=== PATIENT | female | born 1960 | race Caucasian/White ===

== ENCOUNTER 2024-10-17 22:14 | Emergency (ER) | payer MEDICARE, BC, SELFPAY ==
[2024-10-17 22:40] VITALS: BP 151/71; PULSE 100; RESP 18; TEMP 36.4; O2SAT 96; BMI 29.6
--- NOTE | 2024-10-17 22:46 | PD.EDRME ---
Rapid Medical Screening Exam E Arrival date/time: 10/17/24 22:14 64F with history of DM, CAD, CVA, PAD, and cholecystectomy presents to ED with 1 day of R-sided ab/flank pain. Patient denies N/V, diarrhea, and hematuria/dysuria. Patient states she's had a kidney stone before and this feels different. Chief Complaint: Abdominal Pain Vital signs: Vital Signs Temperature 97.6 F 10/17/24 22:40 Pulse Rate 100 10/17/24 22:40 Respiratory Rate 18 10/17/24 22:40 Blood Pressure 151/71 H 10/17/24 22:40 Pulse Oximetry (%) 96 10/17/24 22:40 Oxygen Delivery Method Room Air 10/17/24 22:40
--- NOTE | 2024-10-17 22:49 | XR_ITS ---
Examination: CT abdomen and pelvis without contrast. Coronal 3-D reconstructions. Sagittal 2-D reconstructions. Date and time of exam:October 17, 2024 11:19 PM Comparison April 25, 2024 Indications: Right elbow pain beginning 2 hours ago including flank pain CTDI: vol (mGy): 2022 DLP: (mGycm): 417 Technique: Axial images of the abdomen have been obtained, 3 mm slice thickness Intravenous contrast material has not been administered. Low dose protocols were performed. One or more of the following dose reduction techniques were used; automated exposure control, adjustment of the mA and/or KV according to patient size, use of iterative reconstruction technique. Findings: No focal liver or splenic lesions Absent gallbladder No pancreatic or adrenal mass Bilateral renal calculi, the largest right kidney 4 mm No hydronephrosis or ureteral calculi Very heavy calcification distal abdominal aorta common iliac arteries, 80% stenosis left common iliac artery 50% stenosis right common iliac artery at its origin No periappendiceal inflammatory change Abundant stool in the rectosigmoid Urinary bladder intact Lumbar fusion and laminectomy Impression: Multiple bilateral renal calculi, the largest right kidney 4 mm, no hydronephrosis or ureteral calculi Very heavy calcification distal abdominal aorta with significant stenosis origins common iliac arteries, consider elective CTA abdominal aorta iliofemoral runoff post intravenous contrast follow-up as clinically warranted
[2024-10-17 23:05] LABS: Lactate (Lactic Acid) 2.8 mMol/L (0.4-2.0)
[2024-10-17 23:06] LABS: Basophils % (Auto) 0 % (0-2.5); Eosinophils # (Auto) 0.1 Thou/mm3 (0.0-0.5); Eosinophils % (Auto) 1 % (0-10); Hematocrit 42.5 % (36.0-46.0); Hemoglobin 14.2 g/dL (12.0-16.0); Immature Granulocytes % (Auto) 0 % (0-0); Immature Granulocytes Auto 0.01 Thou/mm3 (0.00-0.00); Lymphocytes # (Auto) 2.8 Thou/mm3 (1.0-4.8); Lymphocytes % (Auto) 44 % (10-50); Mean Corpuscular HGB Conc 33.4 g/dl (31.0-37.0); Mean Corpuscular Hemoglobin 29.2 pg (25.0-35.0); Mean Corpuscular Volume 87 fL (80-100); Monocytes # (Auto) 0.4 Thou/mm3 (0.0-0.8); Monocytes % (Auto) 7 % (0-12); Neutrophils # (Auto) 3.1 Thou/mm3 (1.8-7.7); Neutrophils % (Auto) 49 % (37-80); Nucleated Red Blood Cell % 0 /100 WBC (0); Platelet Count 298 Thou/mm3 (140-440); RDW Standard Deviation 41.9 fL (36.4-46.3); Red Blood Count 4.87 Miln/mm3 (4.00-5.20); White Blood Count 6.5 Thou/mm3 (3.6-11.0)
[2024-10-17] MEDS: DIAZEPAM 5 MG TABLET 10 MG PO (23:07)
[2024-10-17 23:27] LABS: Alanine Aminotransferase 15 U/L (10-49); Albumin, Serum 4.7 gm/dL (3.4-4.8); Albumin/Globulin Ratio 1.7 (1.2-2.2); Alkaline Phosphatase 93 U/L (46-116); Anion Gap 12 (7-16); Aspartate Amino Transferase 13 U/L (0-34); BUN/Creatinine Ratio 18 Ratio (12-20); Blood Urea Nitrogen 14 mg/dL (9-23); Calcium 9.8 mg/dL (8.3-10.6); Calcium (Corrected) 9.8 mg/dL (8.5-10.1); Carbon Dioxide 17.2 mMol/L (20.0-31.0); Chloride 110 mMol/L (98-107); Creatinine (Component) 0.8 mg/dL (0.6-1.3); Estimated Creatinine Clearance 65.8 mL/min (>60); Globulin 2.8 gm/dL (2.3-3.5); Glucose 230 mg/dL (74-106); Lipase 152 U/L (12-53); Osmolality,Calculated 285 (275-295); Potassium 3.6 mMol/L (3.4-5.1); Sodium 139 mMol/L (136-145); Total Protein 7.5 gm/dL (5.7-8.2); eGFR > 60 See Note
[2024-10-17 23:36] VITALS: BP 144/86; PULSE 92; RESP 16; O2SAT 95
[2024-10-17 23:39] LABS: Bilirubin,Total 0.3 mg/dL (0.3-1.2)
[2024-10-17] MEDS: MORPHINE SULF INJ 10 MG/ML VIAL 5 MG IM (23:41)
--- NOTE | 2024-10-18 00:17 | EDNOTE_ITS ---
ED General RME/HPI General Chief complaint: Abdominal Pain Stated complaint: ABDOMINAL PAIN Arrival date/time: 10/17/24 22:14 RME / HPI RME / HPI narrative: 10/17/24 22:14 64F with history of DM, CAD, CVA, PAD, and cholecystectomy presents to ED with 1 day of R-sided ab/flank pain. Patient denies N/V, diarrhea, and hematuria/dysuria. Patient states she's had a kidney stone before and this feels different. ----- This section includes all my notes and documentations, including HPI, PE, and ED course. Myron Baker MD HPI: 64yo female with pmhx DM, HTN, pancreatitis accompanied by her daughter presents to the ED for a chief complaint of right-sided abdominal pain x 2100. Patient states she was sleeping when she developed sudden right-sided abdominal pain that woke her up from her sleep. She states she feels like she can't empty my bladder . She denies any N/V, hematuria or any other associated symptoms. No other complaints reported. PSH includes cholecystectomy and one . ROS: Gastrointestinal: negative except as documented in HPI. Genitourinary: negative except as documented in HPI. Musculoskeletal: negative except as documented in HPI. Skin: negative except as documented in HPI. Neurological: negative except as documented in HPI. Physical Exam: General: Alert and oriented. Appears uncomfortable. Eyes: Conjunctivae and lids clear. ENT: No nasal congestion. Neck: Supple. Heart: RRR. Lungs: No respiratory distress. Good air movement. No rhonchi, wheezing, rales. Abdomen: Soft with epigastric tenderness. Normal bowel sounds. No distension. No rebound or guarding. Back: No CVA tenderness. Skin: Warm and dry. Neuro: Alert and oriented X 3. I reviewed all diagnostic test results. My review of the abdominal CT report is no acute findings. Blood tests and urine tests are unremarkable, except mildly elevated amylase/lipase. At this point, diagnoses include mild pancreatitis. Treatment here included IV fluid, Zofran, and morphine. Significant improvement noted subjectively and objectively. Recommended a trial of outpatient treatment. Based on my best medical judgment, made decision no further evaluation or treatment indicated at this time. Patient understands and agrees to the discharge instructions customized and printed, see below. Myron Baker MD Discharge instructions from Dr. Baker: 1. After extensive evaluation, there is no emergency such as appendicitis needing urgent surgery. 2. Your symptoms are most likely due to mild pancreatitis, see attached handout. 3. Zofran for nausea/vomiting. Morphine for severe pain. 4. Clear liquid diet for 24 hours. Then advance diet as tolerated. 5. See a private doctor on 10/20/2024 for recheck. Ask to review all test results and official radiology reports, to make sure you receive all necessary follow-ups and monitoring. To make sure there is no serious intra-abdominal condition, ask for help with more investigation not available here in the ER. Such as EGD or scoping the stomach, colonoscopy or scoping the colon, and referral to see cardiac technician. 6. Seek immediate medical care with worsening or with any beth Related Data Home Medications ?Medication ?Instructions ?Recorded ?Confirmed nitroglycerin 0.4 mg sublingual 0.4 mg SL PRN #0 tabs 05/03/16 07/07/24 tablet (Nitrostat) amlodipine 2.5 mg tablet 2.5 mg PO QDAY 09/10/23 07/07/24 atorvastatin 80 mg tablet 80 mg PO QDAY 09/10/23 07/07/24 clopidogrel 75 mg tablet 75 mg PO QDAY 09/10/23 07/07/24 insulin glargine 100 unit/mL (3 20 unit subcut HS 09/10/23 07/07/24 mL) subcutaneous pen (Lantus Solostar U-100 Insulin) insulin lispro 100 unit/mL 3 unit subcut TID 09/10/23 07/07/24 subcutaneous pen (Humalog KwikPen (U-100) Insulin) isosorbide mononitrate 30 mg 30 mg PO QDAY 09/10/23 07/07/24 tablet,extended release 24 hr aspirin 81 mg tablet,delayed 81 mg PO QDAY 07/07/24 07/07/24 release cholestyramine (with sugar) 4 gram 1 ea PO QDAY 07/07/24 07/07/24 oral powder clonazepam 0.5 mg tablet 0.5 mg PO QDAY 07/07/24 07/07/24 dicyclomine 10 mg capsule 10 mg PO QDAY 07/07/24 07/07/24 hydroxyzine HCl 25 mg tablet 25 mg PO QHSPRN 07/07/24 07/07/24 lisinopril 10 1 tab PO QDAY 07/07/24 07/07/24 mg-hydrochlorothiazide 12.5 mg tablet metformin 500 mg tablet,extended 500 mg PO QDAY 07/07/24 07/07/24 release 24 hr metoprolol succinate 100 mg 100 mg PO QDAY 07/07/24 07/07/24 tablet,extended release 24 hr morphine 15 mg tablet,extended 15 mg PO QDAY 07/07/24 07/07/24 release Previous Rx's ?Medication ?Instructions ?Recorded morphine 15 mg immediate release 15 mg PO BID PRN pain #6 tabs 10/18/24 tablet ondansetron 4 mg disintegrating 4 mg PO TID PRN nausea and 10/18/24 tablet vomiting 5 days #10 tabs Allergies Allergy/AdvReac Type Severity Reaction Status Date / Time codeine Allergy Severe HIVES Verified 07/07/24 13:31 hydrocodone Allergy Severe RASH AND Verified 07/07/24 13:31 SWELLING Iodinated Contrast Media Allergy Severe Hives Verified 07/07/24 13:31 Review of Systems Review of Systems Systems Reviewed: All systems reviewed, normal except as documented Past Medical History Past Medical History NEUROLOGIC: Positive Neurological Disorders, Cerebrovascular Accident and Transient Ischemic Attacks (TIA); Negative Seizures CARDIAC: Positive Cardiac Disorders, Myocardial Infarction (x2), Coronary Artery Disease, Hypercholesterolemia and Hypertension; Negative Congestive Heart Failure RESPIRATORY: Positive Asthma; Negative Chronic Obstructive Pulmonary Disease (COPD) GASTROINTESTINAL: Positive Gastrointestinal Disorders, Diverticulosis and Gastroesophageal Reflux Disease; Negative Gastrointestinal Bleed, Hiatal Hernia or Hemorrhoids GENITOURINARY: Negative Genitourinary Disorders or Renal Disease REPRODUCTIVE: Positive Previous Pregnancies MUSCULOSKELETAL: Positive Musculoskeletal Disorders, Arthritis and Carpal Tunnel Syndrome ENDOCRINE: Positive Endocrine Disorders and Diabetes Mellitus Type 2; Negative Diabetes Mellitus Type 1, Hyperthyroidism or Hypothyroidism HEMATOLOGIC: Negative Blood Disorders or Sickle Cell Disease PSYCHO/SOCIAL: Positive Anxiety; Negative Depression OTHER HISTORY: Positive Falls and Chicken Pox; Negative Blood Transfusions, Blood Transfusion Reaction, Anesthesia Reactions or Cancer Surgical History SURGICAL: Positive Cardiac Surgery, Coronary Stent, Tonsillectomy, Tubal Ligation and Section Social History SMOKING STATUS: Never smoker ED Exam Narrative Physical exam: As noted in HPI. Course Quality Measures none Orders Category Date Time Status Saline [Insert IV] NOW Care 10/18/24 00:18 Active Straight [In and Out Catheter] X1 Care 10/18/24 00:[address] abdomen pelvis wo con Stat Exams 10/17/24 22:49 Completed Amylase Stat Lab 10/17/24 22:58 Completed CBC Stat Lab 10/17/24 22:58 Completed CMP [Comprehensive Metabolic Panel] Stat Lab 10/17/24 22:58 Completed Lactate (Lactic Acid) Stat Lab 10/17/24 22:58 Completed Lactic Acid, 3 HR Stat Lab 10/18/24 02:01 Ordered Lipase Stat Lab 10/17/24 22:58 Completed Magnesium Stat Lab 10/17/24 22:58 Completed Urinalysis, C/S if Indicated Stat Lab 10/18/24 00:31 Completed Diazepam [Valium] Med 10/17/24 22:59 Discontinued 10 mg PO X1 ONE HYDROmorphone INJ [Dilaudid Inj] Med 10/18/24 00:18 Discontinued 1 mg IVP X1 ONE Ketorolac Inj [Toradol Inj] Med 10/18/24 00:18 Discontinued 30 mg IVP X1 ONE Morphine Inj Med 10/18/24 01:05 Discontinued 4 mg IVP X1 ONE Morphine Inj Med 10/17/24 22:49 Discontinued 5 mg IM X1 ONE Ondansetron Inj [Zofran Inj] Med 10/18/24 00:18 Discontinued 4 mg IV X1 ONE Sodium Chloride 0.9% 1000 ml [Ns] 1,000 ml Med 10/18/24 00:20 Discontinued IV 999 mls/hr Vital Signs Vital signs: Vital Signs Temperature 97.6 F 10/17/24 22:40 Pulse Rate 100 10/17/24 22:40 Respiratory Rate 18 10/17/24 22:40 Blood Pressure 151/71 H 10/17/24 22:40 Pulse Oximetry (%) 96 10/17/24 22:40 Oxygen Delivery Method Room Air 10/17/24 22:40 [facility] Patient data External records reviewed:: [facility] previous records (Per chart review, patient was seen here on 04/25/24 for abdominal pain.) Clinical information provided by:: patient Social determinants that could affect healthcare access:: none Patient has the following chronic illnesses:: pancreatitis, hyperlipidemia, type 2 diabetes, hypertension How is presenting disease/condition affected by chronic disease/condition?: u neffected by Evaluation data The following diagnostics were reviewed and interpreted by me:: lab results and radiology exam(s) Lab and/or radiology exams considered but not ordered:: none Interpretation Summary: [facility] Report Signed Patient: KD PORRAS Record#: [id number] Birthdate: 1960 Age/Sex: 64 / F Location: [facility] Attending Dr: Ordering Physician: Praful Cruz PA-C Date of Service: 10/17/24 Procedure(s): CT abdomen pelvis wo con Accession Number(s): [id number] cc: Nadeen Sewell; Andrew Mathews MD; Praful Cruz PA-C~ Examination: CT abdomen and pelvis without contrast. Coronal 3-D reconstructions. Sagittal 2-D reconstructions. Date and time of exam:October 17, 2024 11:19 PM Comparison April 25, 2024 Indications: Right elbow pain beginning 2 hours ago including flank pain CTDI: vol (mGy): 2022 DLP: (mGycm): 417 Technique: Axial images of the abdomen have been obtained, 3 mm slice thickness Intravenous contrast material has not been administered. Low dose protocols were performed. One or more of the following dose reduction techniques were used; automated exposure control, adjustment of the mA and/or KV according to patient size, use of iterative reconstruction technique. Findings: No focal liver or splenic lesions Absent gallbladder No pancreatic or adrenal mass Bilateral renal calculi, the largest right kidney 4 mm No hydronephrosis or ureteral calculi Very heavy calcification distal abdominal aorta common iliac arteries, 80% stenosis left common iliac artery 50% stenosis right common iliac artery at its origin No periappendiceal inflammatory change Abundant stool in the rectosigmoid Urinary bladder intact Lumbar fusion and laminectomy Impression: Multiple bilateral renal calculi, the largest right kidney 4 mm, no hydronephrosis or ureteral calculi Very heavy calcification distal abdominal aorta with significant stenosis origins common iliac arteries, consider elective CTA abdominal aorta iliofemoral runoff post intravenous contrast follow-up as clinically warranted Dictated By: Andrew Mathews MD Signed By: <Electronically signed by Andrew Mathews MD in OV> 10/17/24 3330 Medications Medications considered but not ordered:: none Medication administrations:: Medication Administration History Discontinued Medications Diazepam (Diazepam 5 Mg Tablet) 10 mg PO X1 ONE Stop: 10/17/24 23:00 Last Admin: 10/17/24 23:07 Dose: 10 mg Documented By: Hydromorphone HCl (Hydromorphone Inj 2 Mg/Ml Vial) 1 mg IVP X1 ONE Stop: 10/18/24 00:19 Last Admin: 10/18/24 01:07 Dose: Not Given Documented By: DB Non-Admin Reason: Patient Refused Sodium Chloride (Ns) 1,000 mls @ 999 mls/hr IV .Q1H1M ONE Stop: 10/18/24 01:20 Last Admin: 10/18/24 01:00 Dose: 999 mls/hr Documented By: DB Ketorolac Tromethamine (Ketorolac Inj 30 Mg/Ml Vial) 30 mg IVP X1 ONE Stop: 10/18/24 00:19 Last Admin: 10/18/24 01:01 Dose: 30 mg Documented By: DB Morphine Sulfate (Morphine Sulf Inj 10 Mg/Ml Vial) 5 mg IM X1 ONE Stop: 10/17/24 22:50 Last Admin: 10/17/24 23:41 Dose: 5 mg Documented By: CAROLINA Morphine Sulfate (Morphine Sulf Inj 10 Mg/Ml Vial) 4 mg IVP X1 ONE Stop: 10/18/24 01:06 Last Admin: 10/18/24 01:16 Dose: 4 mg Documented By: CAROLINA Ondansetron HCl (Ondansetron Inj 2 Mg/Ml Inj 2 Ml) 4 mg IV X1 ONE; Protocol Stop: 10/18/24 00:19 Last Admin: 10/18/24 01:00 Dose: 4 mg Documented By: CAROLINA see above Consultations Consultation(s) initiated? (list below): No Diagnosis Differential Diagnosis ED Complaint MDM: appendicitis, UTI, pancreatitis Most likely diagnosis given after review of the tests above:: see below Admission Indicated Admission indicated?: not indicated Explain why admission is indicated or not indicated:: Admission criteria not met. Admission Request Was there a request for admission?: No Disposition Plan Disposition Plan: Discharge Discharge Attestation Discharge Attestation: The patient and all family members were given an opportunity to ask questions and understood the discharge instructions. Discharge instructions specifically effects, indications for sooner follow up or return to the emergency department, and the expected course of current diagnosis. Patient condition: Stable Medical Decision Making Differential Diagnosis Differential Diagnosis: appendicitis, UTI, pancreatitis Lab Data 10/17/24 22:58 10/17/24 22:58 Labs: Lab Results 10/17/24 10/18/24 Range/Units 22:58 00:31 WBC 6.5 (3.6-11.0) Thou/mm3 RBC 4.87 (4.00-5.20) Miln/mm3 Hgb 14.2 (12.0-16.0) g/dL Hct 42.5 (36.0-46.0) % MCV 87 (80-100) fL MCH 29.2 (25.0-35.0) pg MCHC 33.4 (31.0-37.0) g/dl RDW Std Deviation 41.9 (36.4-46.3) fL Plt Count 298 (140-440) Thou/mm3 Neut % (Auto) 49 (37-80) % Lymph % (Auto) 44 (10-50) % Hayes % (Auto) 7 (0-12) % Eos % (Auto) 1 (0-10) % Baso % (Auto) 0 (0-2.5) % Neut # (Auto) 3.1 (1.8-7.7) Thou/mm3 Lymph # (Auto) 2.8 (1.0-4.8) Thou/mm3 Hayes # (Auto) 0.4 (0.0-0.8) Thou/mm3 Eos # (Auto) 0.1 (0.0-0.5) Thou/mm3 Baso # (Auto) 0.0 (0.0-0.2) Thou/mm3 Immature Gran # (Auto) 0.01 H (0.00-0.00) Thou/mm3 Absolute Nucleated RBC 0.00 (0.00-0.00) Thou/mm3 Immature Gran % 0 (0-0) % Nucleated RBC % 0 (0) /100 WBC Sodium 139 (136-145) mMol/L Potassium 3.6 (3.4-5.1) mMol/L Chloride 110 H (98-107) mMol/L Carbon Dioxide 17.2 L (20.0-31.0) mMol/L Anion Gap 12 (7-16) BUN 14 (9-23) mg/dL Creatinine 0.8 (0.6-1.3) mg/dL Estim Creat Clear Calc 65.8 (>60) mL/min eGFR > 60 (60 - ) See Note BUN/Creatinine Ratio 18 (12-20) Ratio Glucose 230 H (74-106) mg/dL Calculated Osmolality 285 (275-295) Lactic Acid 2.8 H (0.4-2.0) mMol/L Calcium 9.8 (8.3-10.6) mg/dL Corrected Calcium 9.8 (8.5-10.1) mg/dL Magnesium 2.0 (1.6-2.6) mg/dL Total Bilirubin 0.3 (0.3-1.2) mg/dL AST 13 (0-34) U/L ALT 15 (10-49) U/L Alkaline Phosphatase 93 (46-116) U/L Total Protein 7.5 (5.7-8.2) gm/dL Albumin 4.7 (3.4-4.8) gm/dL Globulin 2.8 (2.3-3.5) gm/dL Albumin/Globulin Ratio 1.7 (1.2-2.2) Amylase 125 H (30-118) U/L Lipase 152 H (12-53) U/L Ur Collection Type Clean Catch Urine Color Colorless A (Lt Yel-Yel) Urine Clarity Clear (Clear/Hazy) Urine pH 5.0 (5.0-7.0) Ur Specific [place] 1.040 H (1.001-1.035) Urine Protein Negative (Neg - Trace) Urine Glucose (UA) 4+ A (Negative) Urine Ketones Trace (Negative) Urine Blood Negative (Negative) Urine Nitrite Negative (Negative) Urine Bilirubin Negative (Negative) Urine Urobilinogen (Auto) Negative (0.0-1.0) mg/dL Ur Leukocyte Esterase Negative (Negative) Urine RBC 0 (0-3) /hpf Urine WBC 0 (0-5) /hpf Ur Squamous Epith Cells 1 (0-5) /hpf Urine Bacteria None (None) Ur Culture Indicated? Not Indicated Discharge Plan Plan Patient Disposition: HOME (Self Care) Prescriptions/Referrals Prescriptions/Med Rec: New ondansetron 4 mg tablet,disintegrating 4 mg PO TID PRN (Reason: nausea and vomiting) 5 Days Qty: 10 0RF morphine 15 mg tablet 15 mg PO BID MDD 2 PRN (Reason: pain) Qty: 6 0RF No Action nitroglycerin [Nitrostat] 0.4 MG tablet, sublingual 0.4 mg SL PRN Qty: 0 atorvastatin 80 mg tablet 80 mg PO QDAY Patient Comments: TAKE 1 TABLET BY MOUTH EVERY DAY isosorbide mononitrate 30 mg tablet extended release 24 hr 30 mg PO QDAY amlodipine 2.5 mg tablet 2.5 mg PO QDAY Patient Comments: TAKE 1 TABLET BY MOUTH EVERY DAY clopidogrel 75 mg tablet 75 mg PO QDAY Patient Comments: TAKE 1 TABLET BY MOUTH EVERY DAY FOR HEART AND BRAIN CIRCULATION insulin lispro [Humalog KwikPen Insulin] 100 unit/mL Insulin Pen 3 unit SUBCUT TID insulin glargine [Lantus Solostar U-100 Insulin] 100 unit/mL (3 mL) insulin pen 20 unit SUBCUT HS metoprolol succinate 100 mg tablet extended release 24 hr 100 mg PO QDAY clonazepam 0.5 mg tablet 0.5 mg PO QDAY Hold Instructions: Resume on 07/08/24. May resume tomorrow due to sedation that was given today. Patient Comments: TAKE 1 TABLET TWICE A DAY BY ORAL ROUTE NEEDED FOR 7 DAYS, FOR ANXXIETY. aspirin 81 mg Tablet,Delayed Release (Dr/Ec) 81 mg PO QDAY hydroxyzine HCl 25 mg tablet 25 mg PO QHSPRN Hold Instructions: Resume on 07/08/24. Hold and resume tomorrow due to the sedation given today. Patient Comments: TAKE 1 TABLET EVERY DAY BY ORAL ROUTE AT BEDTIME FOR 30 DAYS, FOR INSOMNIA. morphine 15 mg tablet extended release 15 mg PO QDAY Hold Instructions: Resume on 07/08/24. Hold and resume tomorrow due to the sedation that was given today. lisinopril-hydrochlorothiazide 10-12.5 mg Tablet 1 tab PO QDAY metformin 500 mg tablet extended release 24 hr 500 mg PO QDAY dicyclomine 10 mg capsule 10 mg PO QDAY Patient Comments: TAKE 1 CAPSULE BY MOUTH TWICE A DAY cholestyramine (with sugar) 4 gram powder 1 ea PO QDAY Patient Comments: MIX 1 SCOOP IN 8 OZ GLASS ONCE A DAY Referrals: Nadeen Sewell FNP [Primary Care Provider] - In 1 week Problem List Clinical Impression: Abdominal pain Patient/Caregiver Discharge Instructions Discharge Activity: activity as tolerated Education Materials: Abdominal Pain, ED Pancreatitis Additional Instructions: Discharge instructions from Dr. Baker: 1. After extensive evaluation, there is no emergency such as appendicitis needing urgent surgery. 2. Your symptoms are most likely due to mild pancreatitis, see attached handout. 3. Zofran for nausea/vomiting. Morphine for severe pain. 4. Clear liquid diet for 24 hours. Then advance diet as tolerated. 5. See a private doctor on 10/20/2024 for recheck. Ask to review all test results and official radiology reports, to make sure you receive all necessary follow-ups and monitoring. To make sure there is no serious intra-abdominal condition, ask for help with more investigation not available here in the ER. Such as EGD or scoping the stomach, colonoscopy or scoping the colon, and referral to see cardiac technician. 6. Seek immediate medical care with worsening or with any concerns. Print Language: Czech Stand Alone Forms: Ceci Award Info., Patient Portal Info Letter
[2024-10-18 00:35] LABS: Collection Type, Urine Clean Catch; RBC,Urine 0 /hpf (0-3); WBC,Urine 0 /hpf (0-5)
[2024-10-18 00:55] LABS: Amylase 125 U/L (30-118)
[2024-10-18 01:00] VITALS: BP 151/79; PULSE 89; RESP 16; TEMP 36.6; O2SAT 98
[2024-10-18] MEDS: ONDANSETRON INJ 2 MG/ML INJ 2 ML 4 MG IV (01:00)
[2024-10-18] MEDS: SODIUM CHLORIDE 0.9% 1000 ML 1,000 ML 999 ML IV (01:00)
[2024-10-18] MEDS: KETOROLAC INJ 30 MG/ML VIAL IVP (01:01)
[2024-10-18 01:14] LABS: Bilirubin,Urine Negative (Negative); Blood,Urine Negative (Negative); Clarity,Urine Clear (Clear/Hazy); Color,Urine Colorless (Lt Yel-Yel); Culture Indicated,Urine Not Indicated; Glucose, Urine 4+ (Negative); Ketones,Urine Trace (Negative); Leukocyte Esterase,Urine Negative (Negative); Nitrite,Urine Negative (Negative); Protein,Urine Negative (Neg - Trace); Squamous Epithelial Cell,Urine 1 /hpf (0-5); Urobilinogen,Urine Negative mg/dL (0.0-1.0)
[2024-10-18] MEDS: MORPHINE SULF INJ 10 MG/ML VIAL 4 MG IVP (01:16)
[2024-10-18 02:01] LABS: Reflex Lactate? Y
[2024-10-18 02:25] LABS: Lactic Acid, 3 HR 1.1 mMol/L (0.4-2.0)
[2024-10-18 02:37] VITALS: BP 143/71; PULSE 80; RESP 18; TEMP 36.7; O2SAT 99
== END 2024-10-18 02:37 | disposition home or self-care (01) ==
PROVIDERS: Physician Assistant; Emergency Provider Emergency Medicine; PCP Nurse Practitioner Family
DX: N20.0 Calculus of kidney (principal); I70.0 Atherosclerosis of aorta
CPT/HCPCS: 36415; 74176; 80053; 81001; 82150; 83605; 83690; 83735; 85025; 96361; 96372; 96374; 96375; 99284; J1885; J2270; J2405; J7030; A9270

== ENCOUNTER 2024-10-18 17:55 | Inpatient (IN) | payer MEDICARE, BC, SELFPAY ==
--- NOTE | 2024-10-18 18:19 | XR_ITS ---
Examination: . CTA abdomen, with intravenous contrast. CTA pelvis, with intravenous contrast. 2-D sagittal and coronal reconstructions. 3-D reconstructions. Date and time of exam: October 18, 2024 at 2028 hrs. Indications: Epigastric pain beginning 3 days ago CTDI vol (mgy) 12.2 DLP (MGycm) 448 Technique: Multiple CTA images, 2.0 mm slice thickness, obtained chest, abdomen, pelvis, with the high-resolution 64 slice scanner. 100 cc Isovue-370 is administered intravenously. Sagittal and coronal 2-D reconstructions are obtained. 3-D reconstructions, angiographic images are obtained. 3-D postprocessing, including vascular maximum intensity projections. Low dose protocols were performed. One or more of the following dose reduction techniques were used; automated exposure control, adjustment of the mA and/or KV according to patient size, use of iterative reconstruction technique. Findings: Mucosal edema in the stomach with tiny contrast opacities Mild thickening of the lower esophageal wall No focal liver or splenic lesions Absent gallbladder No common bile duct stones Negative for pancreatitis Normal adrenal glands No renal or ureteral calculi, no hydronephrosis Very heavy calcification distal abdominal aorta with stenosis of the iliac arteries, right common iliac and left common iliac artery stents which are grossly patent Normal appendix Fluid distended small bowel loops, mild No bowel obstruction No diverticulitis No pelvic mass Urinary bladder intact Impression: Thickening of the lower esophageal wall, consider reflux esophagitis Findings suspicious for severe gastritis with low-grade bleeding in the stomach, consider endoscopy follow-up Heavy calcification abdominal aorta and common iliac arteries with patent common iliac artery stents Normal appendix Fluid distended small bowel loops consider ileus, enteritis such as Crohn's disease No bowel obstruction
[2024-10-18 18:28] VITALS: BP 137/71; PULSE 98; RESP 18; TEMP 36.4; O2SAT 95; BMI 29.2
[2024-10-18 18:54] LABS: Lactate (Lactic Acid) 1.5 mMol/L (0.4-2.0)
[2024-10-18 18:59] LABS: Basophils % (Auto) 0 % (0-2.5); Eosinophils # (Auto) 0.1 Thou/mm3 (0.0-0.5); Eosinophils % (Auto) 1 % (0-10); Hematocrit 41.6 % (36.0-46.0); Hemoglobin 13.8 g/dL (12.0-16.0); Immature Granulocytes % (Auto) 0 % (0-0); Immature Granulocytes Auto 0.01 Thou/mm3 (0.00-0.00); Lymphocytes # (Auto) 2.6 Thou/mm3 (1.0-4.8); Lymphocytes % (Auto) 37 % (10-50); Mean Corpuscular HGB Conc 33.2 g/dl (31.0-37.0); Mean Corpuscular Hemoglobin 29.2 pg (25.0-35.0); Mean Corpuscular Volume 88 fL (80-100); Monocytes # (Auto) 0.5 Thou/mm3 (0.0-0.8); Monocytes % (Auto) 7 % (0-12); Neutrophils # (Auto) 3.8 Thou/mm3 (1.8-7.7); Neutrophils % (Auto) 55 % (37-80); Nucleated Red Blood Cell % 0 /100 WBC (0); Platelet Count 295 Thou/mm3 (140-440); RDW Standard Deviation 42.5 fL (36.4-46.3); Red Blood Count 4.73 Miln/mm3 (4.00-5.20)
[2024-10-18 19:13] LABS: Partial Thromboplastin Time 24.8 Seconds (22.0-36.0); Prothrombin Time 10.8 Seconds (9.0-12.2)
[2024-10-18 19:15] LABS: Sed Rate (ESR) 8 mm/hr (0-30)
[2024-10-18 19:27] LABS: Alanine Aminotransferase 18 U/L (10-49); Albumin, Serum 4.5 gm/dL (3.4-4.8); Albumin/Globulin Ratio 1.7 (1.2-2.2); Alkaline Phosphatase 85 U/L (46-116); Amylase 104 U/L (30-118); Anion Gap 6 (7-16); Aspartate Amino Transferase 19 U/L (0-34); BUN/Creatinine Ratio 24 Ratio (12-20); Bilirubin,Total 0.4 mg/dL (0.3-1.2); Blood Urea Nitrogen 17 mg/dL (9-23); C-Reactive Protein < 0.4 mg/dL (0.0-0.9); Calcium 9.3 mg/dL (8.3-10.6); Calcium (Corrected) 9.3 mg/dL (8.5-10.1); Carbon Dioxide 25.8 mMol/L (20.0-31.0); Chloride 106 mMol/L (98-107); Creatinine (Component) 0.7 mg/dL (0.6-1.3); Estimated Creatinine Clearance 74.7 mL/min (>60); Globulin 2.6 gm/dL (2.3-3.5); Glucose 137 mg/dL (74-106); Lipase 108 U/L (12-53); Magnesium 2.2 mg/dL (1.6-2.6); Osmolality,Calculated 279 (275-295); Potassium 4.2 mMol/L (3.4-5.1); Sodium 138 mMol/L (136-145); Total Protein 7.1 gm/dL (5.7-8.2); eGFR > 60 See Note
[2024-10-18 19:37] VITALS: BP 150/74; PULSE 84; RESP 18; TEMP 36.9; O2SAT 94
[2024-10-18] MEDS: SODIUM CHLORIDE 0.9% 1000 ML 1,000 ML 999 ML IV (20:06)
[2024-10-18] MEDS: ONDANSETRON INJ 2 MG/ML INJ 2 ML 4 MG IV (20:10)
[2024-10-18] MEDS: fentaNYL CIT INJ 50 mCg/ML AMP 2ML 100 MCG IVP (20:10)
[2024-10-18] MEDS: DiphenhydrAMINE INJ 50 MG/ML VIAL IVP (20:12)
[2024-10-18] MEDS: MethylPREDNISolone SOD SUCC 62.5 MG/ML 2ML VIAL 125 MG IVP (20:12)
[2024-10-18 20:15] VITALS: BP 150/74; PULSE 83; RESP 18; TEMP 36.7; O2SAT 96
--- NOTE | 2024-10-18 21:41 | EDNOTE_ITS ---
ED Abdominal Pain RME/HPI General Chief Complaint: Abdominal Pain Stated complaint: PANCREATITIS WORSE TODAY Time seen by provider: 10/18/24 18:00 Arrival date/time: 10/18/24 17:55 RME / HPI RME / HPI narrative: This section includes all my notes and documentations, including HPI, PE, and ED course. Myron Baker MD HPI: 64-year-old female here with severe abdominal pain and severe nausea since last night. Was seen here last night. Failed outpatient treatment. She has trouble localizing her pain. No obvious fever. No hematemesis or coffee-ground emesis. No diarrhea. Had bowel movement yesterday. No rectal bleeding or tarry stools. No other complaints. ROS: Gastrointestinal: negative except as documented in HPI. Genitourinary: negative except as documented in HPI. Musculoskeletal: negative except as documented in HPI. Skin: negative except as documented in HPI. Neurological: negative except as documented in HPI. Physical Exam: General: Alert and oriented. In severe pain. Eyes: Conjunctivae and lids clear. ENT: No nasal congestion. Neck: Supple. Heart: RRR. Lungs: No respiratory distress. Good air movement. No rhonchi, wheezing, rales. Abdomen: Soft with severe tenderness, difficult to localize. Normal bowel sounds. No distension. No rebound or guarding. Back: No CVA tenderness. Skin: Warm and dry. Neuro: Alert and oriented X 3. I reviewed all diagnostic test results. My review of the abdominal CT report is esophagitis and severe gastritis and ileus and enteritis. Blood tests unremarkable. At this point, diagnoses include enteritis, esophagitis, severe gastritis, and ileus. Treatment here included fluid and Zofran and pain management. No aignificant improvement noted subjectively and objectively. I discussed the case with our supervisor filling and packing (Dr. Juárez) and our hospitalist. About the presentation and exam and diagnostics and treatments here. And need of further care in the hospital. Will accept the patient. Myron Baker MD Related Data Home Medications ?Medication ?Instructions ?Recorded ?Confirmed nitroglycerin 0.4 mg sublingual 0.4 mg SL PRN #0 tabs 05/03/16 07/07/24 tablet (Nitrostat) amlodipine 2.5 mg tablet 2.5 mg PO QDAY 09/10/23 07/07/24 atorvastatin 80 mg tablet 80 mg PO QDAY 09/10/23 07/07/24 clopidogrel 75 mg tablet 75 mg PO QDAY 09/10/23 07/07/24 insulin glargine 100 unit/mL (3 20 unit subcut HS 09/10/23 07/07/24 mL) subcutaneous pen (Lantus Solostar U-100 Insulin) insulin lispro 100 unit/mL 3 unit subcut TID 09/10/23 07/07/24 subcutaneous pen (Humalog KwikPen (U-100) Insulin) isosorbide mononitrate 30 mg 30 mg PO QDAY 09/10/23 07/07/24 tablet,extended release 24 hr aspirin 81 mg tablet,delayed 81 mg PO QDAY 07/07/24 07/07/24 release cholestyramine (with sugar) 4 gram 1 ea PO QDAY 07/07/24 07/07/24 oral powder clonazepam 0.5 mg tablet 0.5 mg PO QDAY 07/07/24 07/07/24 dicyclomine 10 mg capsule 10 mg PO QDAY 07/07/24 07/07/24 hydroxyzine HCl 25 mg tablet 25 mg PO QHSPRN 07/07/24 07/07/24 lisinopril 10 1 tab PO QDAY 07/07/24 07/07/24 mg-hydrochlorothiazide 12.5 mg tablet metformin 500 mg tablet,extended 500 mg PO QDAY 07/07/24 07/07/24 release 24 hr metoprolol succinate 100 mg 100 mg PO QDAY 07/07/24 07/07/24 tablet,extended release 24 hr morphine 15 mg tablet,extended 15 mg PO QDAY 07/07/24 07/07/24 release Previous Rx's ?Medication ?Instructions ?Recorded morphine 15 mg immediate release 15 mg PO BID PRN pain #6 tabs 10/18/24 tablet ondansetron 4 mg disintegrating 4 mg PO TID PRN nausea and 10/18/24 tablet vomiting 5 days #10 tabs Allergies Allergy/AdvReac Type Severity Reaction Status Date / Time codeine Allergy Severe HIVES Verified 10/18/24 17:57 hydrocodone Allergy Severe RASH AND Verified 10/18/24 17:57 SWELLING Iodinated Contrast Media Allergy Severe Hives Verified 10/18/24 17:57 Course Quality Measures none Orders Category Date Time Status CT Screening NOW Care 10/18/24 18:20 Active Saline [Insert IV] NOW Care 10/18/24 18:18 Active Consult to Gastroenterology Stat Cons 10/18/24 21:[address] angio abdomen pelvis Stat Exams 10/18/24 18:19 Completed Amylase Stat Lab 10/18/24 18:29 Completed CBC Stat Lab 10/18/24 18:29 Completed CMP [Comprehensive Metabolic Panel] Stat Lab 10/18/24 18:29 Completed CRP [C-Reactive Protein] Stat Lab 10/18/24 18:29 Completed ESR [Sed Rate (ESR)] Stat Lab 10/18/24 18:29 Completed Lactate (Lactic Acid) Stat Lab 10/18/24 18:29 Completed Lipase Stat Lab 10/18/24 18:29 Completed Magnesium Stat Lab 10/18/24 18:29 Completed PT [Prothrombin Time with INR] Stat Lab 10/18/24 18:29 Completed PTT [Partial Thromboplastin Time] Stat Lab 10/18/24 18:29 Completed Procalcitonin Stat Lab 10/18/24 18:29 Completed DiphenhydrAMINE INJ [Benadryl Inj] Med 10/18/24 19:48 Discontinued 50 mg IVP X1 ONE Famotidine Inj [Pepcid Inj] Med 10/18/24 21:58 Discontinued 20 mg IVP X1 ONE MethylPREDNISolone.* [SoluMEDROL Inj] Med 10/18/24 19:48 Discontinued 125 mg IVP X1 ONE Morphine Inj Med 10/18/24 21:42 Discontinued 6 mg IVP X1 ONE Ondansetron Inj [Zofran Inj] Med 10/18/24 18:18 Discontinued 4 mg IV X1 ONE Pantoprazole Inj [Protonix Inj] Med 10/18/24 21:58 Discontinued 40 mg IVP X1 ONE Piper/Tazo Inj [Zosyn Inj] 3.375 gm Med 10/18/24 21:26 Discontinued Sodium Chloride 0.9% (P) [Ns 0.9% (P)] 50 ml IV X1 Sodium Chloride 0.9% 1000 ml [Ns] 1,000 ml Med 10/18/24 18:21 Discontinued IV 999 mls/hr fentaNYL INJ [Sublimaze Inj] Med 10/18/24 18:18 Discontinued 100 mcg IVP X1 ONE Vital Signs Vital signs: Vital Signs Temperature 97.6 F 10/18/24 18:28 Pulse Rate 98 10/18/24 18:28 Respiratory Rate 18 10/18/24 18:28 Blood Pressure 137/71 H 10/18/24 18:28 Pulse Oximetry (%) 95 10/18/24 18:28 Oxygen Delivery Method Room Air 10/18/24 18:28 Abdominal Pain MDM Patient data External records reviewed:: [facility] previous records Clinical information provided by:: patient Social determinants that could affect healthcare access:: none Patient has the following chronic illnesses:: See chart How is presenting disease/condition affected by chronic disease/condition?: uneffected by Evaluation data The following diagnostics were reviewed and interpreted by me:: lab results and radiology exam(s) Lab and/or radiology exams considered but not ordered:: None Interpretation Summary: Esophagitis and gastritis and ileus and enteritis Medications / Prescriptions Medications or Prescriptions considered but not ordered:: None Medication administrations:: Medication Administration History Discontinued Medications Diphenhydramine HCl (Diphenhydramine Inj 50 Mg/Ml Vial) 50 mg IVP X1 ONE Stop: 10/18/24 19:49 Last Admin: 10/18/24 20:12 Dose: 50 mg Documented By: NITIN Famotidine (Famotidine Inj 10 Mg/Ml Vial 2 Ml) 20 mg IVP X1 ONE Stop: 10/18/24 21:59 Fentanyl Citrate (Fentanyl Cit Inj 50 Mcg/Ml Amp 2ml) 100 mcg IVP X1 ONE Stop: 10/18/24 18:19 Last Admin: 10/18/24 20:10 Dose: 100 mcg Documented By: NITIN Sodium Chloride (Ns) 1,000 mls @ 999 mls/hr IV .Q1H1M ONE Stop: 10/18/24 19:21 Last Infusion: 10/18/24 21:15 Dose: Infused Documented By: Admin: 10/18/24 20:06 Dose: 999 mls/hr Documented By: NITIN Piperacillin Sod/Tazobactam (Sod 3.375 gm/ Sodium Chloride) 50 mls @ 100 mls/hr IV X1 ONE Stop: 10/18/24 21:55 Methylprednisolone Sodium Succinate (Methylprednisolone Sod Succ 62.5 Mg/Ml 2ml Vial) 125 mg IVP X1 ONE Stop: 10/18/24 19:49 Last Admin: 10/18/24 20:12 Dose: 125 mg Documented By: NITIN Morphine Sulfate (Morphine Sulf Inj 10 Mg/Ml Vial) 6 mg IVP X1 ONE Stop: 10/18/24 21:43 Ondansetron HCl (Ondansetron Inj 2 Mg/Ml Inj 2 Ml) 4 mg IV X1 ONE; Protocol Stop: 10/18/24 18:19 Last Admin: 10/18/24 20:10 Dose: 4 mg Documented By: NITIN Pantoprazole Sodium (Pantoprazole Inj 40 Mg Vial) 40 mg IVP X1 ONE Stop: 10/18/24 21:59 See chart Consultations Consultation(s) initiated? (list below): Yes Consultation #1 (Physician, Specialty, Details): Dr. Juárez (GI) Diagnosis Differential diagnosis abdominal pain: acute appendicitis, calculus of kidney, constipation, diverticulitis, gastroenteritis, pancreatitis and small bowel obstruction Most likely diagnosis given after review of the tests above:: Esophagitis and gastritis and ileus and enteritis Admission Indicated Admission indicated?: indicated Admission Request Was there a request for admission?: Yes Admission Attestation Admission request attestation: Discussed case with Hospitalist service regarding admission. Discussed patients ED course, exam findings, labs, and radiology results. The Hospitalist [agrees,declines] to accept the patient for admission. Disposition Plan Disposition Plan: Admit Critical Care Time Critical Care Time Critical Care Time: Yes Total Critical Care Time (min.): 36 Attestation: Critical care time included evaluation of the patient and reviewing diagnostic tests and discussing cases with supervisor filling and packing and hospitalist and discussing diagnoses and treatment plans with patient and family. Discharge Plan Plan Patient Disposition: Admit Acute Care w/in Hospital Prescriptions/Referrals Prescriptions/Med Rec: No Action nitroglycerin [Nitrostat] 0.4 MG tablet, sublingual 0.4 mg SL PRN Qty: 0 ondansetron 4 mg tablet,disintegrating 4 mg PO TID PRN (Reason: nausea and vomiting) 5 Days Qty: 10 0RF morphine 15 mg tablet 15 mg PO BID MDD 2 PRN (Reason: pain) Qty: 6 0RF atorvastatin 80 mg tablet 80 mg PO QDAY Patient Comments: TAKE 1 TABLET BY MOUTH EVERY DAY isosorbide mononitrate 30 mg tablet extended release 24 hr 30 mg PO QDAY amlodipine 2.5 mg tablet 2.5 mg PO QDAY Patient Comments: TAKE 1 TABLET BY MOUTH EVERY DAY clopidogrel 75 mg tablet 75 mg PO QDAY Patient Comments: TAKE 1 TABLET BY MOUTH EVERY DAY FOR HEART AND BRAIN CIRCULATION insulin lispro [Humalog KwikPen Insulin] 100 unit/mL Insulin Pen 3 unit SUBCUT TID insulin glargine [Lantus Solostar U-100 Insulin] 100 unit/mL (3 mL) insulin pen 20 unit SUBCUT HS metoprolol succinate 100 mg tablet extended release 24 hr 100 mg PO QDAY clonazepam 0.5 mg tablet 0.5 mg PO QDAY Hold Instructions: Resume on 07/08/24. May resume tomorrow due to sedation that was given today. Patient Comments: TAKE 1 TABLET TWICE A DAY BY ORAL ROUTE NEEDED FOR 7 DAYS, FOR ANXXIETY. aspirin 81 mg Tablet,Delayed Release (Dr/Ec) 81 mg PO QDAY hydroxyzine HCl 25 mg tablet 25 mg PO QHSPRN Hold Instructions: Resume on 07/08/24. Hold and resume tomorrow due to the sedation given today. Patient Comments: TAKE 1 TABLET EVERY DAY BY ORAL ROUTE AT BEDTIME FOR 30 DAYS, FOR INSOMNIA. morphine 15 mg tablet extended release 15 mg PO QDAY Hold Instructions: Resume on 07/08/24. Hold and resume tomorrow due to the sedation that was given today. lisinopril-hydrochlorothiazide 10-12.5 mg Tablet 1 tab PO QDAY metformin 500 mg tablet extended release 24 hr 500 mg PO QDAY dicyclomine 10 mg capsule 10 mg PO QDAY Patient Comments: TAKE 1 CAPSULE BY MOUTH TWICE A DAY cholestyramine (with sugar) 4 gram powder 1 ea PO QDAY Patient Comments: MIX 1 SCOOP IN 8 OZ GLASS ONCE A DAY Referrals: Nadeen Sewell FNP [Primary Care Provider] - In 1 week Problem List Clinical Impression: Enteritis, Ileus, Esophagitis, Gastritis Patient/Caregiver Discharge Instructions Print Language: Belarusian Stand Alone Forms: Ceci Award Info., Patient Portal Info Letter
[2024-10-18] MEDS: MORPHINE SULF INJ 10 MG/ML VIAL 6 MG IVP (21:45)
--- NOTE | 2024-10-18 23:21 | PD.RESHP ---
Documentation for date of: 10/18/24 [facility] History of Present Illness History of present illness: Ariadna Albarran is a 64-year-old female with a past medical history of CAD status post stent, PAD (s/p stents in bilateral femoral arteries, aorta, and ICA), hypertension, type 1 diabetes mellitus, dysphagia, and esophageal stricture status post dilatation x 2 presents with abdominal pain. Patient states that pain started yesterday and on the right side that has then migrated to the left side with associated nausea, abdominal bloating, increased abdominal firmness. Last bowel movement was 2 days ago. Pain is not associated with meals and patient denies significant NSAID use. No vomiting, fever or chills, constipation, diarrhea, or bloody/dark stools. Does state that she has had progressive dysphagia with history of esophageal strictures s/p dilatation with planned upcoming EGD on 11/13. ED course: Vital stable, CBC unremarkable, CMP shows lipase [address] A/P: Suspicious for severe gastritis with low-grade bleeding in stomach, esophagitis, small bowel ileus, enteritis, heavy calcifications in abdominal aorta and common iliacs (patent stents) In ED given 1 L NS bolus, 100 mcg fentanyl, ondansetron, diphenhydramine, methylprednisolone 125 mg, famotidine PMHx: as noted above Medications: clonazepam, isosorbide mononitrite ER, lisinopril-HCTZ, clopidogrel, atorvastatin, dicyclomine, venlafaxine, tramadol SHx: distant cigarette use, denies alcohol and illicit drug use PSHx: Status post cardiac stent, stents in femoral arteries/aorta/internal carotid Review of Systems Review of Systems Systems Reviewed: All systems reviewed, normal except as documented Exam Vital Signs Temp Pulse Resp BP Pulse Ox O2 Del Method 98.0 F 83 18 150/74 H 96 Room Air 10/18/24 20:15 10/18/24 20:15 10/18/24 20:15 10/18/24 20:15 10/18/24 20:15 10/18/24 20:15 Narrative Exam General: AOx3, in mild distress, able to speak full sentences HEENT: NC/AT, mucous membranes moist, bilateral sclera anicteric Cardiovascular: regular rate and rhythm, S1/S2 present, no murmurs appreciated Pulmonary: clear to auscultation bilaterally, no rales/rhonchi/wheezes Abdominal: mildly firm, distended, diffuse tenderness Musculoskeletal: normal ROM, no peripheral edema Skin: warm and dry, intact, no rashes Neuro: CN II-XII intact, no focal deficits Results: Labs 10/19/24 04:50 10/19/24 04:50 Labs: Short CBC 10/18/24 Range/Units 18:29 WBC 7.0 (3.6-11.0) Thou/mm3 Hgb 13.8 (12.0-16.0) g/dL Hct 41.6 (36.0-46.0) % Plt Count 295 (140-440) Thou/mm3 BMP 10/18/24 18:29 Sodium 138 Potassium 4.2 D Chloride 106 Carbon Dioxide 25.8 BUN 17 Creatinine 0.7 Glucose 137 H D Calcium 9.3 Liver Function 10/18/24 Range/Units 18:29 Total Bilirubin 0.4 (0.3-1.2) mg/dL AST 19 (0-34) U/L ALT 18 (10-49) U/L Alkaline Phosphatase 85 (46-116) U/L Albumin 4.5 (3.4-4.8) gm/dL Quality Measures Quality Measures none Advance care planning discussed with:: patient Medications Home Medications and Allergies Home Medications ?Medication ?Instructions ?Recorded ?Confirmed ?Type nitroglycerin 0.4 mg sublingual 0.4 mg SL PRN #0 tabs 05/03/16 10/19/24 History tablet (Nitrostat) amlodipine 2.5 mg tablet 2.5 mg PO HS 09/10/23 10/19/24 History atorvastatin 80 mg tablet 80 mg PO HS 09/10/23 10/19/24 History clopidogrel 75 mg tablet 75 mg PO QDAY 09/10/23 10/19/24 History isosorbide mononitrate 30 mg 30 mg PO QDAY 09/10/23 10/19/24 History tablet,extended release 24 hr aspirin 81 mg tablet,delayed 81 mg PO QDAY 07/07/24 10/19/24 History release clonazepam 0.5 mg tablet 0.5 mg PO BID PRN Anxiety 07/07/24 10/19/24 History dicyclomine 10 mg capsule 10 mg PO QDAY 07/07/24 10/19/24 History metoprolol succinate 100 mg 100 mg PO QDAY 07/07/24 10/19/24 History tablet,extended release 24 hr empagliflozin 10 mg tablet 5 mg PO QAM 10/19/24 10/19/24 History (Jardiance) gabapentin 300 mg capsule 300 mg PO BID 10/19/24 10/19/24 History lisinopril 20 1 tab PO QDAY 10/19/24 10/19/24 History mg-hydrochlorothiazide 12.5 mg tablet metformin 750 mg tablet,extended 750 mg PO QDAY 10/19/24 10/19/24 History release 24 hr venlafaxine 75 mg tablet 75 mg PO QDAY 10/19/24 10/19/24 History Allergies Allergy/AdvReac Type Severity Reaction Status Date / Time codeine Allergy Severe HIVES Verified 10/18/24 17:57 hydrocodone Allergy Severe RASH AND Verified 10/18/24 17:57 SWELLING Iodinated Contrast Media Allergy Severe Hives Verified 10/18/24 17:57 Visit Medications Acetaminophen (Acetaminophen 325 Mg Tablet) 650 mg PO Q6H PRN PRN Reason: PAIN OR FEVER > 101 Stop: 11/17/24 22:59 Atorvastatin Calcium (Atorvastatin Calcium 20 Mg Tablet) 80 mg PO HS DENISSE Stop: 11/18/24 20:59 Clonazepam (Clonazepam 0.5 Mg Tablet) 0.5 mg PO BID PRN PRN Reason: ANXIETY Stop: 10/24/24 08:59 Dextrose (Dextrose 50%-Water Inj 50 Ml Syringe) 25 ml IV Q15MIN PRN PRN Reason: BG 50-70 responsive npo pt Stop: 11/17/24 23:01 Dextrose (Dextrose 50%-Water Inj 50 Ml Syringe) 50 ml IV Q15MIN PRN PRN Reason: BG <50 OR BG <70 & pt unresponsive Stop: 11/17/24 23:01 Glucagon (Glucagon Inj 1 Mg Vial) 1 mg IM Q15MIN PRN PRN Reason: BG <70, and no IV access Hydrochlorothiazide (Hydrochlorothiazide 12.5 Mg Capsule) 25 mg PO QDAY DENISSE Stop: 11/18/24 08:59 Insulin Human Lispro (Insulin Lispro (Admelog) 1 Unit/0.01 Ml Unit) 0 unit SC ACHS [facility]; Protocol Stop: 11/18/24 07:29 Isosorbide Mononitrate (Isosorbide Er Mononitrate 30 Mg Tabcr) 30 mg PO QDAY [facility] Stop: 11/18/24 08:59 Lisinopril (Lisinopril 20 Mg Tablet) 40 mg PO QDAY [facility] Stop: 11/18/24 08:59 Morphine Sulfate (Morphine Sulf Inj 4 Mg/Ml Vial) 1 mg IVP Q6HR PRN PRN Reason: BREAKTHROUGH PAIN Stop: 10/23/24 23:01 Ondansetron HCl (Ondansetron Inj 2 Mg/Ml Inj 2 Ml) 4 mg IV Q6H PRN; Protocol PRN Reason: NAUSEA OR VOMITING Stop: 11/17/24 22:59 Oxycodone/Acetaminophen (Oxycodone/Apap 5/325 Tablet) 1 tab PO Q6HR PRN PRN Reason: PAIN SCALE 4-10(Mod-Sev Stop: 10/23/24 23:05 Pantoprazole Sodium (Pantoprazole Inj 40 Mg Vial) 40 mg IVP Q12HR [facility] Stop: 11/18/24 08:59 Venlafaxine HCl (Venlafaxine Xr 37.5 Mg Capcr) 75 mg PO QDAY [facility] Stop: 11/18/24 08:59 Discontinued Medications Diphenhydramine HCl (Diphenhydramine Inj 50 Mg/Ml Vial) 50 mg IVP X1 ONE Stop: 10/18/24 19:49 Last Admin: 10/18/24 20:12 Dose: 50 mg Famotidine (Famotidine Inj 10 Mg/Ml Vial 2 Ml) 20 mg IVP X1 ONE Stop: 10/18/24 21:59 Fentanyl Citrate (Fentanyl Cit Inj 50 Mcg/Ml Amp 2ml) 100 mcg IVP X1 ONE Stop: 10/18/24 18:19 Last Admin: 10/18/24 20:10 Dose: 100 mcg Sodium Chloride (Ns) 1,000 mls @ 999 mls/hr IV .Q1H1M ONE Stop: 10/18/24 19:21 Last Infusion: 10/18/24 21:15 Dose: Infused Piperacillin Sod/Tazobactam (Sod 3.375 gm/ Sodium Chloride) 50 mls @ 100 mls/hr IV X1 ONE Stop: 10/18/24 21:55 Methylprednisolone Sodium Succinate (Methylprednisolone Sod Succ 62.5 Mg/Ml 2ml Vial) 125 mg IVP X1 ONE Stop: 10/18/24 19:49 Last Admin: 10/18/24 20:12 Dose: 125 mg Morphine Sulfate (Morphine Sulf Inj 10 Mg/Ml Vial) 6 mg IVP X1 ONE Stop: 10/18/24 21:43 Ondansetron HCl (Ondansetron Inj 2 Mg/Ml Inj 2 Ml) 4 mg IV X1 ONE; Protocol Stop: 10/18/24 18:19 Last Admin: 10/18/24 20:10 Dose: 4 mg Pantoprazole Sodium (Pantoprazole Inj 40 Mg Vial) 40 mg IVP X1 ONE Stop: 10/18/24 21:59 Assessment & Plan Plan Ariadna Albarran is a 64-year-old female with a past medical history of CAD status post stent, PAD (s/p stents in bilateral femoral arteries, aorta, and ICA), hypertension, type 1 diabetes mellitus, dysphagia, and esophageal stricture status post dilatation x 2 presents with abdominal pain. Patient states that pain started yesterday and on the right side that has then migrated to the left side with associated nausea, abdominal bloating, increased abdominal firmness. Last bowel movement was 2 days ago. Pain is not associated with meals and patient denies significant NSAID use. No vomiting, fever or chills, constipation, diarrhea, or bloody/dark stools. Does state that she has had progressive dysphagia with history of esophageal strictures s/p dilatation with planned upcoming EGD on 11/13. # ? GI Bleed vs esophagitis/gastritis #History of dysphagia #History of esophageal stricture #Status post dilatation x2 #Small bowel ileus Ends with abdominal pain and associated nausea, bloating, firmness. Last bowel movement 2 days ago. Pain not associated with meals and denies significant NSAID use as well as bloody or dark stools. Has history of esophageal strictures status post dilatation x 2, with upcoming EGD on 11/13. CT A/P shows possible small bowel ileus, esophagitis, and gastritis with suspicious low-grade bleeding in stomach ? GI consulted, appreciate recommendations ? N.p.o. after midnight ? Held blood thinners given possible upper GI bleed ? Held home aspirin and Plavix ? SCDs ? Senna x 1 #Hypertension Home lisinopril-HCTZ 20-12.5 mg twice daily and metoprolol succinate ER 100 mg daily, pending med rec. ? Isosorbide mononitrate ER 30 mg daily ? Lisinopril 40 mg daily ? HCTZ 25 mg daily #Type 1 diabetes mellitus A1c 6.9% on 11/2023. Glucose on admission 137. Jardiance 10 mg daily, pending med rec. ? SSI ? Follow-up A1c #History of CAD, status post stent #History of PAD, status post stents Hold home aspirin and Plavix given possible GI bleed. #Chronic pain, back Allergy to hydrocodone and codeine ? Home tramadol 50 mg BID PRN ? Gabapentin 300 mg 3 times daily as needed ? Morphine 1 mg q6h PRN #Anxiety ? Clonazepam 0.5 mg p.o. twice daily as needed Hospital management: Disposition: telemetry Fluids: not indicated Diet: NPO, pending EGD Lines: peripheral DVT prophylaxis: SCDs given possible GI bleed GI prophylaxis: pantoprazole 40 mg IV BID Soto: placed, endorses difficulty emptying bladder CODE STATUS: full code ----- Plan discussed with attending physician Dr. Jay Hough MD PGY-1 Internal Medicine Attending Provider Attestation/Addendum I reviewed labs, imaging, EKG, home medications and prior available records. Face to face evaluation was performed by me. I have personally examined the patient and discussed assessment and plan with the IM team. I reviewed the resident note and agree with the plan with exceptions as below. 64-year-old female with history of hypertension, diabetes type 2, and peripheral vascular disease status post stenting on aspirin and Plavix who presented with a chief complaint of epigastric pain and nausea. CTA showed severe esophagitis and gastritis with possible gastric bleed. Epigastric pain: Likely in setting of upper GI bleed/gastritis/esophagitis. Being on aspirin and Plavix is likely contributing. Started the patient on PPI IV. Hold Plavix and aspirin. Consult GI. N.p.o. after midnight for possible EGD.
[2024-10-18] MEDS: FAMOTIDINE INJ 10 MG/ML VIAL 2 ML 20 MG IVP (23:25)
[2024-10-18] MEDS: PANTOPRAZOLE INJ 40 MG VIAL IVP (23:25)
--- NOTE | 2024-10-18 23:35 | PC.NURSE ---
Sumit RN: Pt provided with broth, jello and water. Tolerating well.
[2024-10-19] VITALS (9 sets, daily range): BP systolic 112–165; BP diastolic 58–95; PULSE 72–104; RESP 15–18; TEMP 36.1–36.8; O2SAT 92–97
[2024-10-19] MEDS: PIPER/TAZO 3.375 GM 50 ML IV (00:33)
--- NOTE | 2024-10-19 01:03 | PC.NURSE ---
BREAK RN: Called Dr. Trenton Hough and verified senna order as pt is NPO now that it is past midnight. okay with pt receiving now with sip of water.
[2024-10-19] MEDS: MORPHINE SULF INJ 10 MG/ML VIAL IVP (01:16)
[2024-10-19] MEDS: ONDANSETRON INJ 2 MG/ML INJ 2 ML 4 MG IV (01:16)
[2024-10-19] MEDS: SENNA TABLET 1 TAB PO (01:44)
[2024-10-19] MEDS: MORPHINE SULF INJ 10 MG/ML VIAL 2 MG IVP (05:21)
[2024-10-19 05:49] LABS: Basophils % (Auto) 0 % (0-2.5); Eosinophils % (Auto) 0 % (0-10); Hematocrit 40.3 % (36.0-46.0); Hemoglobin 13.3 g/dL (12.0-16.0); Immature Granulocytes % (Auto) 0 % (0-0); Immature Granulocytes Auto 0.02 Thou/mm3 (0.00-0.00); Lymphocytes # (Auto) 0.8 Thou/mm3 (1.0-4.8); Lymphocytes % (Auto) 12 % (10-50); Mean Corpuscular Hemoglobin 29.1 pg (25.0-35.0); Mean Corpuscular Volume 88 fL (80-100); Monocytes # (Auto) 0.1 Thou/mm3 (0.0-0.8); Monocytes % (Auto) 1 % (0-12); Neutrophils # (Auto) 5.7 Thou/mm3 (1.8-7.7); Neutrophils % (Auto) 87 % (37-80); Nucleated Red Blood Cell % 0 /100 WBC (0); Platelet Count 251 Thou/mm3 (140-440); RDW Standard Deviation 42.3 fL (36.4-46.3); Red Blood Count 4.57 Miln/mm3 (4.00-5.20); White Blood Count 6.6 Thou/mm3 (3.6-11.0)
[2024-10-19 06:22] LABS: Alanine Aminotransferase 16 U/L (10-49); Albumin, Serum 4.3 gm/dL (3.4-4.8); Alkaline Phosphatase 82 U/L (46-116); Anion Gap 6 (7-16); Aspartate Amino Transferase 14 U/L (0-34); BUN/Creatinine Ratio 24 Ratio (12-20); Bilirubin,Total 0.4 mg/dL (0.3-1.2); Blood Urea Nitrogen 17 mg/dL (9-23); Carbon Dioxide 24.6 mMol/L (20.0-31.0); Chloride 106 mMol/L (98-107); Creatinine (Component) 0.7 mg/dL (0.6-1.3); Estimated Creatinine Clearance 74.7 mL/min (>60); Glucose 203 mg/dL (74-106); Magnesium 2.4 mg/dL (1.6-2.6); Osmolality,Calculated 281 (275-295); Phosphorous 2.8 mg/dL (2.4-5.1); Potassium 4.3 mMol/L (3.4-5.1); Sodium 137 mMol/L (136-145); Total Protein 6.9 gm/dL (5.7-8.2); eGFR > 60 See Note
[2024-10-19 06:23] LABS: Bilirubin,Direct < 0.1 mg/dL (0.0-0.3)
[2024-10-19 06:34] LABS: Glucose Estimated Average 183 mg/dL (80-131)
--- NOTE | 2024-10-19 07:43 | PC.NURSE ---
Pt. here from home to room 11, pt. states she came in for left upper quadrant pain and nausea, pt. states nausea is better at this time. Pt. states her pain to left upper quadrant is 6/10. Pt. states she lives at home with her . Pt. states last BM was 3 days ago. Pt. states she is NPO and is waiting to see Dr. Juárez.
[2024-10-19] MEDS: traMADol HCL 50 MG TABLET PO (07:50)
[2024-10-19] MEDS: HYDROmorphone INJ 2 MG/ML VIAL 0.5 MG IVP (09:48)
[2024-10-19] MEDS: hydroCHLOROthiazide 12.5 MG CAPSULE 25 MG PO (09:55)
[2024-10-19] MEDS: Lisinopril 20 MG TABLET 40 MG PO (09:57)
[2024-10-19] MEDS: PANTOPRAZOLE INJ 40 MG VIAL IVP ×2 (09:59→21:47)
[2024-10-19] MEDS: MG HYD/AL HYD/SIME (Maalox Reg) SUSP 30 ML UDC PO (10:00)
--- NOTE | 2024-10-19 10:48 | PC.CC ---
Pt Ariadna Albarran is a 64 yr old female, admitted to hospitalist services for Gastritis. QUALITY ASSURANCE LAB TECHNICIAN CC met with pt at bedside to complete initial assessment. QUALITY ASSURANCE LAB TECHNICIAN CC introduced self and role in pt care. At time of encounter pt is noted to be alert and oriented to person, place and situation. Pt expressed understanding admission orders and is in agreement with treatment plan. Pt able to confirm all demographic information. Pt from home [address] [place], where she lives with her Ceasar Albarran [phone]. Pt identifies her as surrogate DM. Per pt her son, daughter and 3 granddaughters live in the home as well. In the home pt reports being independent with her ADLS and with ambulation. Pt reports having a 4-wheel rollator, 3 in 1 bs commode, and wheelchair following a spinal surgery. Per pt she does not require this DME equipment at this time. Pt is on diabetic and is not on dialysis. Pt does not require supplemental O2 in the home. Pt is followed by Nadeen Sewell for primary care. Pt is also followed by Dr. Ayala, Dr. Duval and Dr. Juárez. Pt reports feeling safe at home. Pt has access to all working utilities and food items in the home. Pt is retired at this time. At time of D/c pt will return home with family providing transport. Pt has declined any information regarding Advance Directive.
[2024-10-19] MEDS: VENLAFAXINE XR 37.5 MG CAPCR 75 MG PO (11:44)
[2024-10-19] MEDS: ISOSORBIDE ER MONONITRATE 30 MG TABCR PO (11:45)
--- NOTE | 2024-10-19 12:46 | ESPR_ITS ---
<Statement entered by Veronica Nathan DO - 10/19/24 15:29> Senior attestation: Patient was examined and case was reviewed with team including attending physician. Note reviewed, I agree with most of its contents and agree with the patient's care. Maalox and dilaudid given today, patient appears to show clinical improvement as tachycardia was noted to subsequently resolve. Remains NPO, pending GI Dr. Juárez recommendations. Veronica Nathan DO PGY-3 Documentation for date of: 10/19/24 Subjective Subjective Interval history: Patient seen at bedside Admitted overnight for suspected GI bleed, hemoglobin is Hemoglobin A1c 8 patient is on sliding scale insulin Complains of abdominal pain, IV morphine changed to Dilaudid Pending GI evaluation, started on clear liquid diet Patient will be scheduled for EGD post GI evaluation Will continue to monitor patient Exam Vital Signs Temp Pulse Resp BP Pulse Ox O2 Del Method 97.9 F 81 18 151/95 H 92 L Room Air 10/19/24 11:48 10/19/24 11:48 10/19/24 11:48 10/19/24 11:48 10/19/24 11:48 10/19/24 11:48 Narrative Exam General: AOx3, in mild distress, able to speak full sentences HEENT: NC/AT, mucous membranes moist, bilateral sclera anicteric Cardiovascular: regular rate and rhythm, S1/S2 present, no murmurs appreciated Pulmonary: clear to auscultation bilaterally, no rales/rhonchi/wheezes Abdominal: mildly firm, distended, diffuse tenderness Musculoskeletal: normal ROM, no peripheral edema Skin: warm and dry, intact, no rashes Neuro: CN II-XII intact, no focal deficits Objective Labs 10/19/24 04:50 10/19/24 04:50 Labs: Laboratory Results - last 24 hr 10/18/24 10/19/24 18:29 04:50 WBC 7.0 6.6 RBC 4.73 4.57 Hgb 13.8 13.3 Hct 41.6 40.3 MCV 88 88 MCH 29.2 29.1 MCHC 33.2 33.0 RDW Std Deviation 42.5 42.3 Plt Count 295 251 D Neut % (Auto) 55 87 H Lymph % (Auto) 37 12 [place] % (Auto) 7 1 Eos % (Auto) 1 0 Baso % (Auto) 0 0 Neut # (Auto) 3.8 5.7 Lymph # (Auto) 2.6 0.8 L [place] # (Auto) 0.5 0.1 Eos # (Auto) 0.1 0.0 Baso # (Auto) 0.0 0.0 Immature Gran # (Auto) 0.01 H 0.02 H Absolute Nucleated RBC 0.00 0.00 Immature Gran % 0 0 Nucleated RBC % 0 0 ESR 8 PT 10.8 INR 1.0 APTT 24.8 Sodium 138 137 Potassium 4.2 D 4.3 Chloride 106 106 Carbon Dioxide 25.8 24.6 Anion Gap 6 L 6 L BUN 17 17 Creatinine 0.7 0.7 Estim Creat Clear Calc 74.7 74.7 eGFR > 60 > 60 BUN/Creatinine Ratio 24 H 24 H Glucose 137 H D [address] Glu mg/dL 183 H Hemoglobin A1c 8.0 H Calculated Osmolality 279 281 Lactic Acid 1.5 Calcium 9.3 9.0 Corrected Calcium 9.3 Phosphorus 2.8 Magnesium 2.2 2.4 Total Bilirubin 0.4 0.4 Direct Bilirubin < 0.1 AST 19 14 ALT 18 16 Alkaline Phosphatase 85 82 C-Reactive Prot, Quant < 0.4 Total Protein 7.1 6.9 Albumin 4.5 4.3 Globulin 2.6 Albumin/Globulin Ratio 1.7 Amylase 104 Lipase 108 H D Procalcitonin 0.10 Quality Measures Quality Measures none Advance care planning discussed with:: patient Assessment & Plan Assessment Current Active Medications: Generic Name Dose Route Start Last Admin Trade Name Freq PRN Reason Stop Dose Admin Acetaminophen 650 mg 10/18/24 23:00 Acetaminophen 325 Mg Tablet PO 11/17/24 22:59 Q6H PRN PAIN OR FEVER > 101 Atorvastatin Calcium 80 mg 10/19/24 21:00 Atorvastatin Calcium 20 Mg Tablet PO 11/18/24 20:59 HS DENISSE Clonazepam 0.5 mg 10/18/24 23:14 Clonazepam 0.5 Mg Tablet PO 10/24/24 08:59 BID PRN ANXIETY Dextrose 25 ml 10/18/24 23:02 Dextrose 50%-Water Inj 50 Ml Syringe IV 11/17/24 23:01 Q15MIN PRN BG 50-70 responsive npo pt Dextrose 50 ml 10/18/24 23:02 Dextrose 50%-Water Inj 50 Ml Syringe IV 11/17/24 23:01 Q15MIN PRN BG <50 OR BG <70 & pt unresponsive Gabapentin 300 mg 10/19/24 14:00 Gabapentin 300 Mg Capsule PO 11/18/24 05:59 TID DENISSE Glucagon 1 mg 10/18/24 23:02 Glucagon Inj 1 Mg Vial IM Q15MIN PRN BG <70, and no IV access Hydrochlorothiazide 25 mg 10/19/24 09:00 10/19/24 09:55 Hydrochlorothiazide 12.5 Mg Capsule PO 11/18/24 08:59 25 mg QDAY DENISSE Administration Hydromorphone HCl 0.75 mg 10/19/24 13:48 Hydromorphone Inj 2 Mg/Ml Vial IVP 10/24/24 13:47 Q4HR PRN PAIN SCALE 7-10 (Severe Insulin Human Lispro 0 unit 10/19/24 11:00 10/19/24 12:30 Insulin Lispro (Admelog) 1 Unit/0.01 Ml Unit SC 11/18/24 10:59 Not Given Q6H [facility] Protocol Isosorbide Mononitrate 30 mg 10/19/24 09:00 10/19/24 11:45 Isosorbide Er Mononitrate 30 Mg Tabcr PO 11/18/24 08:59 30 mg QDAY DENISSE Administration Lisinopril 40 mg 10/19/24 09:00 10/19/24 09:57 Lisinopril 20 Mg Tablet PO 11/18/24 08:59 40 mg QDAY DENISSE Administration Ondansetron HCl 4 mg 10/18/24 23:00 10/19/24 01:16 Ondansetron Inj 2 Mg/Ml Inj 2 Ml IV 11/17/24 22:59 4 mg Q6H PRN Administration NAUSEA OR VOMITING Protocol Pantoprazole Sodium 40 mg 10/19/24 09:00 10/19/24 09:59 Pantoprazole Inj 40 Mg Vial IVP 11/18/24 08:59 40 mg Q12HR DENISSE Administration Tramadol HCl 50 mg 10/19/24 04:59 10/19/24 07:50 Tramadol Hcl 50 Mg Tablet PO 10/24/24 08:59 50 mg BID PRN Administration PAIN SCALE 4-6 (Moderate Venlafaxine HCl 75 mg 10/19/24 09:00 10/19/24 11:44 Venlafaxine Xr 37.5 Mg Capcr PO 11/18/24 08:59 75 mg QDAY DENISSE Administration Plan Assessment and plan: Summary: Ms. Ariadna Albarran is a 64-year-old female with a past medical history of CAD status post stent, PAD (s/p stents in bilateral femoral arteries, aorta, and ICA), hypertension, type 1 diabetes mellitus, dysphagia, and esophageal stricture status post dilatation x 2 presents with abdominal pain. Patient states that pain started yesterday and on the right side that has then migrated to the left side with associated nausea, abdominal bloating, increased abdominal firmness. Last bowel movement was 2 days ago. Pain is not associated with meals and patient denies significant NSAID use. No vomiting, fever or chills, constipation, diarrhea, or bloody/dark stools. Does state that she has had progressive dysphagia with history of esophageal strictures s/p dilatation with planned upcoming EGD on 11/13. #?GI Bleed vs esophagitis/gastritis #History of dysphagia #History of esophageal stricture #Status post dilatation x2 #Small bowel ileus Endorses epigastric abdominal pain and associated nausea, bloating, firmness. Last bowel movement 2 days ago. Pain not associated with meals and denies significant NSAID use as well as bloody or dark stools. Has history of esophageal strictures status post dilatation x 2, with upcoming EGD on 11/13, follows with Dr. Juárez outpatient. CTA A/P shows possible small bowel ileus, esophagitis, and gastritis with suspicious low-grade bleeding in stomach Plan: ?GI consulted, appreciate recommendations -Clear liquid diet -Hold aspirin and Plavix -Protonix 40 mg IVP twice daily -Monitor for any hematemesis, blood in stool -Monitor CBC in a.m. -Tylenol for mild pain, tramadol for moderate pain and hydromorphone for severe pain #Hypertension Home lisinopril-HCTZ 20-12.5 mg twice daily and metoprolol succinate ER 100 mg daily, pending med rec. ? Continue isosorbide mononitrate ER 30 mg daily ? Continue lisinopril 40 mg daily ? Continue HCTZ 25 mg daily #Type 1 diabetes mellitus A1c 8.0 Jardiance 10 mg daily, pending med rec. ? Lispro sliding scale insulin -Hypoglycemia protocol in place -Fingerstick blood glucose checks AC #History of CAD, status post stent #History of PAD, status post stents Hold home aspirin and Plavix given possible GI bleed. #Chronic pain, back Allergy to hydrocodone and codeine ? Home tramadol 50 mg BID PRN ? Gabapentin 300 mg 3 times daily as needed ? Hydromorphone 0.75 mg as needed for severe pain #Anxiety ? Clonazepam 0.5 mg p.o. twice daily as needed - Continue venlafaxine 75 mg p.o. daily DVT prophylaxis: SCD GI prophylaxis: Protonix Diet: Clear liquid Lines: Peripheral IV Code status: Full code Case discussed with Attending Dr. Ventura and Dr. Nathan PGY3. Radha Redmond PGY1
[2024-10-19] MEDS: HYDROmorphone INJ 2 MG/ML VIAL 0.25 MG IVP (12:58)
--- NOTE | 2024-10-19 13:49 | PD.ADDPROG ---
Addendum Progress Note Addendum Date of report being addended: 10/19/24 Narrative: Face to face evaluation was performed by me. I have personally seen and examined the patient. I discussed the assessment and plan with the entire medicine team. I reviewed available medical records, imaging studies, laboratory results. I agree with the above subjective data, objective findings, assessment and plan except as corrected by me or noted below Acute upper GI bleed, Acute gastritis, distal esophagitis Epigastric and right upper quadrant pain due to above Ileus Hyperlipidemia Avoid blood thinners, hold aspirin, IV PPI twice daily, gastroenterology consulted keep n.p.o. plan is for EGD soon. Patient still complains of uncontrolled pain despite hydromorphone 0.5 mg, plan to give extra 0.25 mg and increase it to 0.75 mg after that. Continue other medications as planned monitor closely
[2024-10-19] MEDS: GABAPENTIN 300 MG CAPSULE PO ×2 (14:23→21:47)
[2024-10-19] MEDS: HYDROmorphone INJ 2 MG/ML VIAL 0.75 MG IVP ×2 (17:03→21:47)
[2024-10-19] MEDS: INSULIN LISPRO (AdmeLOG) 1 UNIT/0.01 ML UNIT SC (17:03)
--- NOTE | 2024-10-19 18:46 | PD.IMCONS ---
HPI Data of Consult Requesting Physician: Bradly Thompson MD Primary Care Provider: DONAL Spain Consult Narrative Reason for consult: Dysphagia, abdominal pain, abnormal CTAP History of present illness: 64-year-old female presented to the hospital with several complaints primarily abdominal pain in both flanks I been consulted also that she been having progressive dysphagia Last endoscopic dilatation was on 07/19/2024 with proximal esophageal stricture guidewire savory dilatation Arabic 45 and 54 and she had done well for this last [address] scan of chest and abdomen followed by CTA abdomen and pelvis showed heavy calcification of the distal abdominal aorta and significant stenosis at the origins of the common iliac arteries and also multiple bilateral renal stones the largest 1 being 4 mm but no hydronephrosis I have been consulted cc:: cc: Bradly Thompson MD Review of Systems Review of Systems Systems Reviewed: All systems reviewed, normal except as documented Past Medical History Surgical History OTHER SURGICAL HX: Essential hypertension Diabetes mellitus type 1 Meds Home Medications and Allergies Home Medications ?Medication ?Instructions ?Recorded ?Confirmed ?Type nitroglycerin 0.4 mg sublingual 0.4 mg SL PRN #0 tabs 05/03/16 10/19/24 History tablet (Nitrostat) amlodipine 2.5 mg tablet 2.5 mg PO HS 09/10/23 10/19/24 History atorvastatin 80 mg tablet 80 mg PO HS 09/10/23 10/19/24 History clopidogrel 75 mg tablet 75 mg PO QDAY 09/10/23 10/19/24 History isosorbide mononitrate 30 mg 30 mg PO QDAY 09/10/23 10/19/24 History tablet,extended release 24 hr aspirin 81 mg tablet,delayed 81 mg PO QDAY 07/07/24 10/19/24 History release clonazepam 0.5 mg tablet 0.5 mg PO BID PRN Anxiety 07/07/24 10/19/24 History dicyclomine 10 mg capsule 10 mg PO QDAY 07/07/24 10/19/24 History metoprolol succinate 100 mg 100 mg PO QDAY 07/07/24 10/19/24 History tablet,extended release 24 hr empagliflozin 10 mg tablet 5 mg PO QAM 10/19/24 10/19/24 History (Jardiance) gabapentin 300 mg capsule 300 mg PO BID 10/19/24 10/19/24 History lisinopril 20 1 tab PO QDAY 10/19/24 10/19/24 History mg-hydrochlorothiazide 12.5 mg tablet metformin 750 mg tablet,extended 750 mg PO QDAY 10/19/24 10/19/24 History release 24 hr venlafaxine 75 mg tablet 75 mg PO QDAY 10/19/24 10/19/24 History Allergies Allergy/AdvReac Type Severity Reaction Status Date / Time codeine Allergy Severe HIVES Verified 10/18/24 17:57 hydrocodone Allergy Severe RASH AND Verified 10/18/24 17:57 SWELLING Iodinated Contrast Media Allergy Severe Hives Verified 10/18/24 17:57 Exam Vital Signs Temp Pulse Resp BP Pulse Ox O2 Del Method 97.8 F 88 16 124/66 96 Room Air 10/19/24 16:00 10/19/24 16:00 10/19/24 16:00 10/19/24 16:00 10/19/24 16:00 10/19/24 16:00 Constitutional Comments: Alert oriented Routine Respiratory Exam Comments: Normal to auscultation Routine Abdominal Exam Comments: Soft nontender and benign Results Labs 10/19/24 04:50 10/19/24 04:50 Labs: Short CBC 10/18/24 10/19/24 Range/Units 18:29 04:50 WBC 7.0 6.6 (3.6-11.0) Thou/mm3 Hgb 13.8 13.3 (12.0-16.0) g/dL Hct 41.6 40.3 (36.0-46.0) % Plt Count 295 251 D (140-440) Thou/mm3 [facility] 10/18/24 10/19/24 18:29 04:50 Sodium 138 137 Potassium 4.2 D 4.3 Chloride 106 106 Carbon Dioxide 25.8 24.6 BUN 17 17 Creatinine 0.7 0.7 Glucose 137 H D 203 H D Calcium 9.3 9.0 Liver Function 10/18/24 10/19/24 Range/Units 18:29 04:50 Total Bilirubin 0.4 0.4 (0.3-1.2) mg/dL Direct Bilirubin < 0.1 (0.0-0.3) mg/dL AST 19 14 (0-34) U/L ALT 18 16 (10-49) U/L Alkaline Phosphatase 85 82 (46-116) U/L Albumin 4.5 4.3 (3.4-4.8) gm/dL Assessment and Plan Additional Assessment & Plan Additional Plan: # Progressive dysphagia Schedule upper endoscopy with possible guidewire savory dilatation consent obtained N.p.o. midnight tonight procedure scheduled for tomorrow # Bilateral flank pain of uncertain etiology # Significant peripheral vascular disease with significant stenosis of the regions of the bilateral iliac arteries Will need a vascular surgical consultation and a peripheral runoff Other medical problems include # Essential hypertension # Hyperlipidemia Thank you very much for the opportunity to participate in the care of this patient
[2024-10-19] MEDS: ATORVASTATIN CALCIUM 20 MG TABLET 80 MG PO (21:47)
--- NOTE | 2024-10-19 23:59 | PC.NURSE ---
pt reminded of NPO status for EGD. She verbalizes understanding.
[2024-10-20] VITALS (20 sets, daily range): BP systolic 91–178; BP diastolic 50–90; PULSE 64–98; RESP 11–18; TEMP 36.1–36.9; O2SAT 94–99
[2024-10-20] MEDS: INSULIN LISPRO (AdmeLOG) 1 UNIT/0.01 ML UNIT SC ×4 (00:02→22:02)
[2024-10-20] MEDS: HYDROmorphone INJ 2 MG/ML VIAL 0.75 MG IVP ×6 (01:41→23:38)
[2024-10-20 06:03] LABS: Basophils % (Auto) 0 % (0-2.5); Eosinophils % (Auto) 0 % (0-10); Hematocrit 37.6 % (36.0-46.0); Hemoglobin 12.4 g/dL (12.0-16.0); Immature Granulocytes % (Auto) 0 % (0-0); Lymphocytes # (Auto) 2.2 Thou/mm3 (1.0-4.8); Lymphocytes % (Auto) 36 % (10-50); Mean Corpuscular Hemoglobin 29.2 pg (25.0-35.0); Mean Corpuscular Volume 89 fL (80-100); Monocytes # (Auto) 0.5 Thou/mm3 (0.0-0.8); Monocytes % (Auto) 9 % (0-12); Neutrophils # (Auto) 3.3 Thou/mm3 (1.8-7.7); Neutrophils % (Auto) 54 % (37-80); Nucleated Red Blood Cell % 0 /100 WBC (0); Platelet Count 254 Thou/mm3 (140-440); RDW Standard Deviation 42.4 fL (36.4-46.3); Red Blood Count 4.24 Miln/mm3 (4.00-5.20); White Blood Count 6.1 Thou/mm3 (3.6-11.0)
[2024-10-20] MEDS: GABAPENTIN 300 MG CAPSULE PO ×3 (06:08→21:49)
[2024-10-20 06:36] LABS: Anion Gap 5 (7-16); BUN/Creatinine Ratio 22 Ratio (12-20); Blood Urea Nitrogen 13 mg/dL (9-23); Calcium 9.1 mg/dL (8.3-10.6); Chloride 104 mMol/L (98-107); Creatinine (Component) 0.6 mg/dL (0.6-1.3); Estimated Creatinine Clearance 90.2 mL/min (>60); Glucose 142 mg/dL (74-106); Osmolality,Calculated 279 (275-295); Potassium 3.9 mMol/L (3.4-5.1); Sodium 139 mMol/L (136-145); eGFR > 60 See Note
[2024-10-20] MEDS: PANTOPRAZOLE INJ 40 MG VIAL IVP ×2 (08:29→21:49)
--- NOTE | 2024-10-20 09:05 | PC.SS ---
Follow up note: Pending EGD.
[2024-10-20] MEDS: DIAZEPAM 2 MG TABLET PO (13:48)
--- NOTE | 2024-10-20 14:30 | ESPR_ITS ---
Documentation for date of: 10/20/24 Subjective Subjective Interval history: Overnight events, lab/imaging results, and notes reviewed. Patient examined bedside, reports continued abdominal pain that has not worsened since yesterday. Still denies passing any BM. Remain NPO, pending endoscopy with GI today. Exam Vital Signs Temp Pulse Resp BP Pulse Ox O2 Del Method 96.9 F 86 18 128/65 96 Room Air 10/20/24 12:00 10/20/24 12:00 10/20/24 12:00 10/20/24 12:00 10/20/24 12:00 10/20/24 12:00 Narrative Exam General: AOx3, cooperative HEENT: Atraumatic/normocephalic, JUJU, Heart: RRR, S1 and S2 without clicks or murmurs Lungs: Clear on auscultation bilaterally, no difficulty breathing Abdomen: Distended but not firm, generalized tenderness throughout Skin: Intact, no cyanosis or edema noted. Peripheral pulses palpable Neuro: No focal neurological deficits noted Objective Labs 10/20/24 05:14 10/20/24 05:14 Labs: Laboratory Results - last 24 hr 10/20/24 05:14 WBC 6.1 RBC 4.24 Hgb 12.4 Hct 37.6 MCV 89 MCH 29.2 MCHC 33.0 RDW Std Deviation 42.4 Plt Count 254 Neut % (Auto) 54 Lymph % (Auto) 36 [place] % (Auto) 9 Eos % (Auto) 0 Baso % (Auto) 0 Neut # (Auto) 3.3 Lymph # (Auto) 2.2 [place] # (Auto) 0.5 Eos # (Auto) 0.0 Baso # (Auto) 0.0 Immature Gran # (Auto) 0.00 Absolute Nucleated RBC 0.00 Immature Gran % 0 Nucleated RBC % 0 Sodium 139 Potassium 3.9 Chloride 104 Carbon Dioxide 30.0 Anion Gap 5 L BUN 13 Creatinine 0.6 Estim Creat Clear Calc 90.2 eGFR > 60 BUN/Creatinine Ratio 22 H Glucose 142 H D Calculated Osmolality 279 Calcium 9.1 Quality Measures Quality Measures VTE prophylaxis (SCDs) Advance care planning discussed with:: patient Assessment & Plan Assessment Current Active Medications: Generic Name Dose Route Start Last Admin Trade Name Freq PRN Reason Stop Dose Admin Acetaminophen 650 mg 10/18/24 23:00 Acetaminophen 325 Mg Tablet PO 12/23/24 22:59 Q6H PRN PAIN OR FEVER > 101 Atorvastatin Calcium 80 mg 10/19/24 21:00 10/19/24 21:47 Atorvastatin Calcium 20 Mg Tablet PO 11/18/24 20:59 80 mg HS DENISSE Administration Clonazepam 0.5 mg 10/18/24 23:14 Clonazepam 0.5 Mg Tablet PO 10/24/24 08:59 BID PRN ANXIETY Dextrose 25 ml 10/18/24 23:02 Dextrose 50%-Water Inj 50 Ml Syringe IV 11/17/24 23:01 Q15MIN PRN BG 50-70 responsive npo pt Dextrose 50 ml 10/18/24 23:02 Dextrose 50%-Water Inj 50 Ml Syringe IV 11/17/24 23:01 Q15MIN PRN BG <50 OR BG <70 & pt unresponsive Gabapentin 300 mg 10/19/24 14:00 10/20/24 13:48 Gabapentin 300 Mg Capsule PO 11/18/24 05:59 300 mg TID DENISSE Administration Glucagon 1 mg 10/18/24 23:02 Glucagon Inj 1 Mg Vial IM Q15MIN PRN BG <70, and no IV access Hydrochlorothiazide 25 mg 10/19/24 09:00 10/20/24 08:36 Hydrochlorothiazide 12.5 Mg Capsule PO 11/18/24 08:59 Not Given QDAY [facility] Hydromorphone HCl 0.75 mg 10/19/24 13:48 10/20/24 10:27 Hydromorphone Inj 2 Mg/Ml Vial IVP 10/24/24 13:47 0.75 mg Q4HR PRN Administration PAIN SCALE 7-10 (Severe Insulin Human Lispro 0 unit 10/19/24 11:00 10/20/24 11:58 Insulin Lispro (Admelog) 1 Unit/0.01 Ml Unit SC 11/18/24 10:59 4 unit Q6H DENISSE Administration Protocol Isosorbide Mononitrate 30 mg 10/19/24 09:00 10/20/24 08:37 Isosorbide Er Mononitrate 30 Mg Tabcr PO 11/18/24 08:59 Not Given QDAY [facility] Lisinopril 40 mg 10/19/24 09:00 10/20/24 08:38 Lisinopril 20 Mg Tablet PO 11/18/24 08:59 Not Given QDAY [facility] Ondansetron HCl 4 mg 10/18/24 23:00 10/19/24 01:16 Ondansetron Inj 2 Mg/Ml Inj 2 Ml IV 11/17/24 22:59 4 mg Q6H PRN Administration NAUSEA OR VOMITING Protocol Pantoprazole Sodium 40 mg 10/19/24 09:00 10/20/24 08:29 Pantoprazole Inj 40 Mg Vial IVP 11/18/24 08:59 40 mg Q12HR DENISSE Administration Tramadol HCl 50 mg 10/19/24 04:59 10/19/24 07:50 Tramadol Hcl 50 Mg Tablet PO 10/24/24 08:59 50 mg BID PRN Administration PAIN SCALE 4-6 (Moderate Venlafaxine HCl 75 mg 10/19/24 09:00 10/20/24 08:35 Venlafaxine Xr 37.5 Mg Capcr PO 11/18/24 08:59 Not Given QDAY DENISSE Plan Ms. Ariadna Albarran is a 64-year-old female with a past medical history of CAD status post stent, PAD (s/p stents in bilateral femoral arteries, aorta, and ICA), hypertension, type 1 diabetes mellitus, dysphagia, and esophageal stricture status post dilatation x 2 presents with abdominal pain. Patient states that pain started yesterday and on the right side that has then migrated to the left side with associated nausea, abdominal bloating, increased abdominal firmness. Last bowel movement was 2 days ago. Pain is not associated with meals and patient denies significant NSAID use. No vomiting, fever or chills, constipation, diarrhea, or bloody/dark stools. Does state that she has had progressive dysphagia with history of esophageal strictures s/p dilatation with planned upcoming EGD on 11/13. #?GI Bleed vs esophagitis/gastritis #History of dysphagia #History of esophageal stricture Status post dilatation x2 #Small bowel ileus Endorses epigastric abdominal pain and associated nausea, bloating, firmness. Last bowel movement 2 days ago. Pain not associated with meals and denies significant NSAID use as well as bloody or dark stools. Has history of esophageal strictures status post dilatation x 2, with upcoming EGD on 11/13, follows with Dr. Juárez outpatient. CTA A/P shows possible small bowel ileus, esophagitis, and gastritis with suspicious low-grade bleeding in stomach Plan: ?GI Dr. Juárez consulted and following, we appreciate recommendations -NPO -Hold aspirin and Plavix -Protonix 40 mg IVP twice daily -Monitor for any hematemesis, blood in stool -Monitor CBC in a.m. -Tylenol for mild pain, tramadol for moderate pain and hydromorphone for severe pain -Endoscopy planned 10/21 -GI advises vascular surgery evaluation and peripheral runoff for peripheral arterial disease, will advise outpatient follow up #Hypertension Home lisinopril-HCTZ 20-12.5 mg twice daily and metoprolol succinate ER 100 mg daily, pending med rec. ? Continue isosorbide mononitrate ER 30 mg daily ? Continue lisinopril 40 mg daily ? Continue HCTZ 25 mg daily #History of Type 1 diabetes mellitus A1c 8.0 Jardiance 10 mg daily, pending med rec. -Lispro sliding scale insulin -Hypoglycemia protocol in place -Fingerstick blood glucose checks AC #History of CAD, status post stent #History of PAD, status post stents Hold home aspirin and Plavix given possible GI bleed. #History of back pain Allergy to hydrocodone and codeine ? Home tramadol 50 mg BID PRN ? Gabapentin 300 mg 3 times daily as needed ? Hydromorphone 0.75 mg as needed for severe pain #History of Anxiety ? Clonazepam 0.5 mg p.o. twice daily as needed, held for 10/20 may resume after endoscopy - Continue venlafaxine 75 mg p.o. daily - Given diazepam x1 on 10/20 for its duration of action and half-life, endoscopy planned 10/20 in eventing DVT prophylaxis: SCD GI prophylaxis: Protonix Diet: NPO for endoscopy 10/20 Lines: Peripheral IV Code status: Full code Patient case discussed with attending physician Dr. Josue Nathan DO PGY-3 Attending Provider Attestation/Addendum I have discussed and was present for the essential components of the history, physical examination, diagnosis, and treatment plan with the resident. I agree with the patient's care as documented by the resident and amended herein by me. Eldon Salas DO. Patient seen and evaluated this AM. Vital signs stable, patient afebrile overnight. Hemoglobin WNL. No BMs reported by patient. GI consulted, upper endoscopy scheduled for today. Patient n.p.o. for now Although this document has been carefully reviewed, there may still be some phonetic and other typographical errors. These errors are purely grammatical due to imperfections in the software program and should not be construed in any way to compromise the substance of the patient's medical care during this visit.
[2024-10-20] MEDS: ATORVASTATIN CALCIUM 20 MG TABLET 80 MG PO (21:49)
[2024-10-21] VITALS (8 sets, daily range): BP systolic 104–149; BP diastolic 51–89; PULSE 78–89; RESP 12–18; TEMP 36.2–37.1; O2SAT 93–96
[2024-10-21] MEDS: HYDROmorphone INJ 2 MG/ML VIAL 0.75 MG IVP (03:44)
[2024-10-21] MEDS: GABAPENTIN 300 MG CAPSULE PO ×3 (05:22→21:19)
[2024-10-21] MEDS: INSULIN LISPRO (AdmeLOG) 1 UNIT/0.01 ML UNIT SC ×4 (05:28→21:18)
[2024-10-21 05:44] LABS: Basophils % (Auto) 0 % (0-2.5); Eosinophils % (Auto) 0 % (0-10); Hematocrit 37.7 % (36.0-46.0); Hemoglobin 12.3 g/dL (12.0-16.0); Immature Granulocytes % (Auto) 0 % (0-0); Immature Granulocytes Auto 0.02 Thou/mm3 (0.00-0.00); Lymphocytes # (Auto) 2.7 Thou/mm3 (1.0-4.8); Lymphocytes % (Auto) 38 % (10-50); Mean Corpuscular HGB Conc 32.6 g/dl (31.0-37.0); Mean Corpuscular Hemoglobin 29.4 pg (25.0-35.0); Mean Corpuscular Volume 90 fL (80-100); Monocytes # (Auto) 0.6 Thou/mm3 (0.0-0.8); Monocytes % (Auto) 9 % (0-12); Neutrophils # (Auto) 3.8 Thou/mm3 (1.8-7.7); Neutrophils % (Auto) 53 % (37-80); Nucleated Red Blood Cell % 0 /100 WBC (0); Platelet Count 269 Thou/mm3 (140-440); RDW Standard Deviation 43.2 fL (36.4-46.3); Red Blood Count 4.19 Miln/mm3 (4.00-5.20); White Blood Count 7.3 Thou/mm3 (3.6-11.0)
[2024-10-21 06:37] LABS: Anion Gap 4 (7-16); BUN/Creatinine Ratio 19 Ratio (12-20); Blood Urea Nitrogen 13 mg/dL (9-23); Calcium 8.8 mg/dL (8.3-10.6); Carbon Dioxide 28.6 mMol/L (20.0-31.0); Chloride 101 mMol/L (98-107); Creatinine (Component) 0.7 mg/dL (0.6-1.3); Estimated Creatinine Clearance 77.3 mL/min (>60); Glucose 248 mg/dL (74-106); Osmolality,Calculated 276 (275-295); Potassium 3.6 mMol/L (3.4-5.1); Sodium 134 mMol/L (136-145); eGFR > 60 See Note
[2024-10-21] MEDS: Lisinopril 20 MG TABLET 40 MG PO (08:04)
[2024-10-21] MEDS: hydroCHLOROthiazide 12.5 MG CAPSULE 25 MG PO (08:04)
[2024-10-21] MEDS: ISOSORBIDE ER MONONITRATE 30 MG TABCR PO (08:05)
[2024-10-21] MEDS: PANTOPRAZOLE INJ 40 MG VIAL IVP ×2 (08:05→21:19)
[2024-10-21] MEDS: VENLAFAXINE XR 37.5 MG CAPCR 75 MG PO (08:05)
--- NOTE | 2024-10-21 10:43 | PC.SS ---
Addendum entered by Aydee Kim 10/21/24 14:48: Patient met with Dr. Myers, E Residents: Dr. Nathan and Dr. Madsen, as well as, RN-Nurse Skein Mercerizing Machine Operator, [place] and ANEL. There was a medical discussion between Dr. Myers and patient. The resolution was for patient to remain in the hospital until pain is controlled, eats and tolerates a meal, and has a bowel movement. Discharge has been placed on hold until Dr. Myers reassess patient. Addendum entered by Aydee Kim 10/21/24 12:27: At 11:20 AM, Customer Relations Advisor (ANEL) Aydee received a phone call from patient's , Ceasar. Ceasar reported being dissatisfied with physicians discontinuing patient's pain medications. Ceasar reported that he was concerned with a discharge with no diagnosis for abdominal pain. SW provided emotional support and attentive listening skills. SW met with patient who reported being dissatisfied with removal of pain medication. Patient reported that she was offered two other pain medications, but did not want to try them due to not knowing that those medications will not work. Patient reported that she was not going to appeal her discharge due to not wanting to stay inpatient if her medical pain will not be treated with previous pain medication. Original Note: Customer Relations Advisor (ANEL) Aydee met with patient [id number] to discuss discharge plan. Patient is returning home, no other needs social needs.
[2024-10-21] MEDS: LACTULOSE SYRUP 20 GM/30 ML UDC PO (10:57)
[2024-10-21] MEDS: Milk Of Magnesia Susp 30 ML UDC PO (14:13)
[2024-10-21] MEDS: MEPERIDINE INJ 50 MG/ML VIAL IVP ×2 (14:14→23:20)
[2024-10-21] MEDS: LACTULOSE SYRUP 20 GM/30 ML UDC 60 GM PO (14:14)
[2024-10-21] MEDS: ONDANSETRON INJ 2 MG/ML INJ 2 ML 4 MG IV ×2 (15:01→23:24)
--- NOTE | 2024-10-21 17:21 | ESPR_ITS ---
<Statement entered by Dalia Myers MD - 10/26/24 16:32> I reviewed above note and agree with findings and plans. I have also personally examined the patient with medicine team and went over assessment and plan with medical team including resident intern and resident physician. <Statement entered by Veronica Nathan DO - 10/21/24 19:40> Senior attestation: Patient was examined and case was reviewed with team including attending physician. Note reviewed, I agree with most of its contents and agree with the patient's care. Discharge was initially considered today however patient had not passed bowel movement since admission, will order milk of mag, lactulose, and enema if needed. Pain medications adjusted, have started demerol prn. Anticipate discharge in 24-48 hours pending on clinical status and bowel movement. Have explained to patient pain medications, particularly opioid medications, can contribute to constipation, patient expresses understanding. Ketorolac was offered today however patient declined stating it has not helped with pain in the past. Veronica Nathan DO PGY-3 Documentation for date of: 10/21/24 Subjective Subjective Interval history: No acute overnight events. Patient was seen with daughter at bedside. Labs reviewed. Patient endorses abdominal pain that is 10 out of 10 in intensity. She has not passed stool in the past 6 days. Discussed with patient about pain management and she is refusing dilaudid for pain. Milk of mag, lactulose, enema were given to the patient. Demerol 50mg x 1 given for pain. Exam Vital Signs Temp Pulse Resp BP Pulse Ox O2 Del Method O2 Flow Rate 97.4 F 83 18 104/60 96 Room Air 3 10/21/24 12:00 10/21/24 12:00 10/21/24 12:00 10/21/24 12:00 10/21/24 12:00 10/21/24 12:00 10/20/24 21:10 Narrative Exam General: Well-developed, patient conversational, no acute distress. HEENT: Atraumatic/normocephalic, JUJU, Heart: RRR, S1 and S2, no murmurs noted Lungs: Clear on auscultation bilaterally, no wheezing or crackles. Abdomen: Distended, soft, generalized tenderness throughout Skin: Intact, no cyanosis or edema noted. Peripheral pulses palpable Neuro: No focal neurological deficits noted Objective Labs 10/21/24 04:46 10/21/24 04:46 Labs: Laboratory Results - last 24 hr 10/21/24 04:46 WBC 7.3 RBC 4.19 Hgb 12.3 Hct 37.7 MCV 90 MCH 29.4 MCHC 32.6 RDW Std Deviation 43.2 Plt Count 269 Neut % (Auto) 53 Lymph % (Auto) 38 [place] % (Auto) 9 Eos % (Auto) 0 Baso % (Auto) 0 Neut # (Auto) 3.8 Lymph # (Auto) 2.7 [place] # (Auto) 0.6 Eos # (Auto) 0.0 Baso # (Auto) 0.0 Immature Gran # (Auto) 0.02 H Absolute Nucleated RBC 0.00 Immature Gran % 0 Nucleated RBC % 0 Sodium 134 L Potassium 3.6 Chloride 101 Carbon Dioxide 28.6 Anion Gap 4 L BUN 13 Creatinine 0.7 Estim Creat Clear Calc 77.3 eGFR > 60 BUN/Creatinine Ratio 19 Glucose 248 H D Calculated Osmolality 276 Calcium 8.8 Quality Measures Quality Measures VTE prophylaxis (SCDs) Advance care planning discussed with:: patient Assessment & Plan Assessment Current Active Medications: Generic Name Dose Route Start Last Admin Trade Name Freq PRN Reason Stop Dose Admin Acetaminophen 650 mg 10/18/24 23:00 Acetaminophen 325 Mg Tablet PO 11/17/24 22:59 Q6H PRN PAIN OR FEVER > 101 Atorvastatin Calcium 80 mg 10/19/24 21:00 10/20/24 21:49 Atorvastatin Calcium 20 Mg Tablet PO 11/18/24 20:59 80 mg HS DENISSE Administration Clonazepam 0.5 mg 10/18/24 23:14 Clonazepam 0.5 Mg Tablet PO 10/24/24 08:59 BID PRN ANXIETY Dextrose 25 ml 10/18/24 23:02 Dextrose 50%-Water Inj 50 Ml Syringe IV 11/17/24 23:01 Q15MIN PRN BG 50-70 responsive npo pt Dextrose 50 ml 10/18/24 23:02 Dextrose 50%-Water Inj 50 Ml Syringe IV 11/17/24 23:01 Q15MIN PRN BG <50 OR BG <70 & pt unresponsive Gabapentin 300 mg 10/19/24 14:00 10/21/24 14:14 Gabapentin 300 Mg Capsule PO 11/18/24 05:59 300 mg TID DENISSE Administration Glucagon 1 mg 10/18/24 23:02 Glucagon Inj 1 Mg Vial IM Q15MIN PRN BG <70, and no IV access Hydrochlorothiazide 25 mg 10/19/24 09:00 10/21/24 08:04 Hydrochlorothiazide 12.5 Mg Capsule PO 11/18/24 08:59 25 mg QDAY DENISSE Administration Hydromorphone HCl 0.75 mg 10/19/24 13:48 10/21/24 03:44 Hydromorphone Inj 2 Mg/Ml Vial IVP 10/24/24 13:47 0.75 mg Q4HR PRN Administration PAIN SCALE 7-10 (Severe Insulin Human Lispro 0 unit 10/19/24 11:00 10/21/24 11:49 Insulin Lispro (Admelog) 1 Unit/0.01 Ml Unit SC 11/18/24 10:59 4 unit Q6H DENISSE Administration Protocol Isosorbide Mononitrate 30 mg 10/19/24 09:00 10/21/24 08:05 Isosorbide Er Mononitrate 30 Mg Tabcr PO 11/18/24 08:59 30 mg QDAY DENISSE Administration Lisinopril 40 mg 10/19/24 09:00 10/21/24 08:04 Lisinopril 20 Mg Tablet PO 11/18/24 08:59 40 mg QDAY DENISSE Administration Meperidine HCl 50 mg 10/21/24 17:13 Meperidine Inj 50 Mg/Ml Vial IVP 10/26/24 17:12 Q4HR PRN PAIN SCALE 4-10(Mod-Sev Ondansetron HCl 4 mg 10/18/24 23:00 10/21/24 15:01 Ondansetron Inj 2 Mg/Ml Inj 2 Ml IV 11/17/24 22:59 4 mg Q6H PRN Administration NAUSEA OR VOMITING Protocol Pantoprazole Sodium 40 mg 10/19/24 09:00 10/21/24 08:05 Pantoprazole Inj 40 Mg Vial IVP 11/18/24 08:59 40 mg Q12HR DENISSE Administration Tramadol HCl 50 mg 10/19/24 04:59 10/19/24 07:50 Tramadol Hcl 50 Mg Tablet PO 10/24/24 08:59 50 mg BID PRN Administration PAIN SCALE 4-6 (Moderate Venlafaxine HCl 75 mg 10/19/24 09:00 10/21/24 08:05 Venlafaxine Xr 37.5 Mg Capcr PO 11/18/24 08:59 75 mg QDAY DENISSE Administration Plan 64-year-old female with a past medical history of CAD status post stent, PAD (s/p stents in bilateral femoral arteries, aorta, and ICA), hypertension, type 1 diabetes mellitus, dysphagia, and esophageal stricture status post dilatation x 2 presents with abdominal pain. Patient states that pain started yesterday and on the right side that has then migrated to the left side with associated nausea, abdominal bloating, increased abdominal firmness. Last bowel movement was 2 days ago. Pain is not associated with meals and patient denies significant NSAID use. No vomiting, fever or chills, constipation, diarrhea, or bloody/dark stools. Does state that she has had progressive dysphagia with history of esophageal strictures s/p dilatation with planned upcoming EGD on 11/13. EGD on hospitalization showed esophagitis/gastritis #Esophagitis/gastritis #Constipation, resolved #History of dysphagia #History of esophageal stricture Status post dilatation x2 Endorses epigastric abdominal pain and associated nausea with last bowel movement ~3 days ago. Pain not associated with meals and denies significant NSAID. Denies bloody or dark stools. History of esophageal strictures status post dilatation x 2, with upcoming EGD on 11/13, follows with Dr. Juárez outpatient. CTA A/P shows possible small bowel ileus, esophagitis, and gastritis with suspicious low-grade bleeding in stomach EGD showed esophagitis/gastritis. Patient had 1 bowel movement with Fleet enema. Plan: ?GI Dr. Juárez consulted ; GI advises vascular surgery evaluation and peripheral runoff for peripheral arterial disease, will advise outpatient follow up -Protonix 40 mg IVP twice daily -Milk of mag, lactulose, followed by Fleet enema given -Demerol 50mg As needed every 4 hours for pain -Monitor for any hematemesis, blood in stool -Monitor CBC in a.m. -Tylenol for mild pain, tramadol for moderate pain and hydromorphone for severe pain -outpatient follow up #Hypertension Patient has a history of hypertension. Home lisinopril-HCTZ 20-12.5 mg twice daily and metoprolol succinate ER 100 mg daily. Plan: ? Continue isosorbide mononitrate ER 30 mg daily ? Continue lisinopril 40 mg daily ? Continue HCTZ 25 mg daily #History of Type 1 diabetes mellitus (A1c 8.0) Chronic, uncontrolled Jardiance 10 mg daily at home. Plan: -Lispro sliding scale insulin -Hypoglycemia protocol in place -Fingerstick blood glucose checks AC #History of CAD, status post stent #History of PAD, status post stents -Consider to restart aspirin and Plavix, no GI bleed on EGD. #History of back pain Allergy to hydrocodone and codeine Plan: ? Home tramadol 50 mg BID PRN ? Gabapentin 300 mg 3 times daily as needed #History of Anxiety Plan: ? Clonazepam 0.5 mg p.o. twice daily as needed, held for 10/20 may resume after endoscopy - Continue venlafaxine 75 mg p.o. daily - Given diazepam x1 on 10/20 for its duration of action and half-life, endoscopy planned 10/20 in eventing #Small bowel ileus, resolved DVT prophylaxis: SCD GI prophylaxis: Protonix Diet: Regular Lines: Peripheral IV Code status: Full code Discussed case with my attending Dr. Myers and senior Jac, PGY-3. Thank you, Margarette Madsen, PGY-2
[2024-10-21] MEDS: HYDROmorphone INJ 2 MG/ML VIAL 0.25 MG IVP (19:00)
--- NOTE | 2024-10-21 19:26 | PD.IMPROG ---
Documentation for date of: 10/21/24 Subjective Subjective Interval history: Able to eat better after endoscopic dilatation Exam Vital Signs Temp Pulse Resp BP Pulse Ox O2 Del Method O2 Flow Rate 97.1 F 88 17 109/79 95 Room Air 3 10/21/24 16:00 10/21/24 16:00 10/21/24 16:00 10/21/24 16:00 10/21/24 16:00 10/21/24 16:00 10/20/24 21:10 Objective Labs 10/21/24 04:46 10/21/24 04:46 Labs: Laboratory Results - last 24 hr 10/21/24 04:46 WBC 7.3 RBC 4.19 Hgb 12.3 Hct 37.7 MCV 90 MCH 29.4 MCHC 32.6 RDW Std Deviation 43.2 Plt Count 269 Neut % (Auto) 53 Lymph % (Auto) 38 [place] % (Auto) 9 Eos % (Auto) 0 Baso % (Auto) 0 Neut # (Auto) 3.8 Lymph # (Auto) 2.7 [place] # (Auto) 0.6 Eos # (Auto) 0.0 Baso # (Auto) 0.0 Immature Gran # (Auto) 0.02 H Absolute Nucleated RBC 0.00 Immature Gran % 0 Nucleated RBC % 0 Sodium 134 L Potassium 3.6 Chloride 101 Carbon Dioxide 28.6 Anion Gap 4 L BUN 13 Creatinine 0.7 Estim Creat Clear Calc 77.3 eGFR > 60 BUN/Creatinine Ratio 19 Glucose 248 H D Calculated Osmolality 276 Calcium 8.8 Impressions Impression: # Proximal esophagus 6 status post endoscopic dilatation Advance diet as tolerated Assessment & Plan A&P Narrative # Progressive dysphagia Schedule upper endoscopy with possible guidewire savory dilatation consent obtained N.p.o. midnight tonight procedure scheduled for tomorrow # Bilateral flank pain of uncertain etiology # Significant peripheral vascular disease with significant stenosis of the regions of the bilateral iliac arteries Will need a vascular surgical consultation and a peripheral runoff Other medical problems include # Essential hypertension # Hyperlipidemia Thank you very much for the opportunity to participate in the care of this patient Time Spent With Patient Time: Total time spent is greater than 50% in coordination of care (as documented) at patient's floor/unit and/or counseling patient:
[2024-10-21] MEDS: ATORVASTATIN CALCIUM 20 MG TABLET 80 MG PO (21:19)
[2024-10-22] VITALS (7 sets, daily range): BP systolic 96–123; BP diastolic 54–71; PULSE 70–82; RESP 13–18; TEMP 36.1–36.7; O2SAT 93–97; BMI 31.3
[2024-10-22] MEDS: MEPERIDINE INJ 50 MG/ML VIAL IVP ×2 (05:00→09:41)
[2024-10-22] MEDS: GABAPENTIN 300 MG CAPSULE PO (05:07)
[2024-10-22] MEDS: INSULIN LISPRO (AdmeLOG) 1 UNIT/0.01 ML UNIT SC ×2 (08:05→11:51)
[2024-10-22] MEDS: hydroCHLOROthiazide 12.5 MG CAPSULE 25 MG PO (08:47)
[2024-10-22] MEDS: PANTOPRAZOLE INJ 40 MG VIAL IVP (08:47)
[2024-10-22] MEDS: ISOSORBIDE ER MONONITRATE 30 MG TABCR PO (08:48)
[2024-10-22] MEDS: VENLAFAXINE XR 37.5 MG CAPCR 75 MG PO (08:48)
[2024-10-22] MEDS: Lisinopril 20 MG TABLET 40 MG PO (08:48)
--- NOTE | 2024-10-22 09:46 | ESDS_ITS ---
<Statement entered by Dalia Myers MD - 10/26/24 16:32> I reviewed above note and agree with findings and plans. I have also personally examined the patient with medicine team and went over assessment and plan with medical team including industrial design intern and resident physician. <Statement entered by Veronica Nathan DO - 10/22/24 19:34> Senior attestation: Patient was examined and case was reviewed with team including attending physician. Note reviewed, I agree with most of its contents and agree with the patient's care. Veronica Nathan DO PGY-3 Planned Discharge Date 10/22/24 DS: Providers Provider Date of admission: 10/18/24 23:14 Primary care physician: DONAL Spain Admitting Provider: Bradly Thompson MD Attending Provider on Admission: Dalia Myers MD Consults: 10/18/24 21:30 Consult to Gastroenterology Stat Comment: Enteritis and Ileus Consulting Provider: Israel Juárez 10/19/24 10:56 Referral Physical Therapy Routine Comment: Physician Instructions: Attending Provider on DC: Margarette Madsen MD Discharging Provider: Margarette Madsen MD DS: Diagnosis Problem List Completed Was Problem List Reviewed/Reconciled?: Yes Hospital Course Hospital Course Hospital course: #Esophagitis/gastritis #Constipation, resolved #History of dysphagia #History of esophageal stricture Status post dilatation x2 #Hypertension #History of Type 1 diabetes mellitus (A1c 8.0) #History of CAD, status post stent #History of PAD, status post stents #History of back pain #History of Anxiety #Small bowel ileus, resolved 64-year-old female with a past medical history of CAD status post stent, PAD (s/p stents in bilateral femoral arteries, aorta, and ICA), hypertension, type 1 diabetes mellitus, dysphagia, and esophageal stricture status post dilatation (followed by Dr. Juárez) x 2 presents with abdominal pain. Patient states that pain started on the right lower abdomen and migrated to the left side with associated nausea, abdominal bloating, increased abdominal firmness. She endorsed feeling constipated. Pain was not associated with meals or NSAID use. She denied dark stools. Patient was admitted for management of abdominal pain with possible GI bleed. Dr. Juárez GI was consulted who conducted EGD. Upcoming EGD was pending for 11/13.CTA A/P shows possible small bowel ileus, esophagitis, and gastritis with suspicious low-grade bleeding in stomach. EGD on hospitalization showed esophagitis/gastritis. GI advises vascular surgery evaluation and peripheral runoff for peripheral arterial disease and to do outpatient follow up. Demerol and Dilaudid worked given for pain. Patient was given lactulose, MiraLAX, followed by Fleet enema and had 1 successful bowel movement. She initially endorses epigastric abdominal pain and associated nausea with constipation, now resolved. Patient is medically cleared/stable for discharge. Patient will continue home medications as previously prescribed. She will follow-up with Dr. Juárez in 1-2 weeks for outpatient workup and follow up with PCP in 1-2 weeks. Patient will take prescribed pantoprazole 40mg once daily for gastritis. Patient will take prescribed lactulose 20 g twice daily for constipation. Patient stated clearly that she will take her home tramadol for pain. Patient will return to the ED if symptoms return or worsen. Time was allowed for patient to ask questions and questions were answered appropriately. Discussed case with my attending Dr. Myers and senior Nathan, PGY-3. Thank you, Margarette Madsen, PGY-2 Time Spent with Patient Time attestation: Total time spent providing and/or coordinating discharge services: Exam Vital Signs Temp Pulse Resp BP Pulse Ox O2 Del Method O2 Flow Rate 97.6 F 76 13 123/67 97 Room Air 3 10/22/24 04:00 10/22/24 08:48 10/22/24 04:00 10/22/24 08:48 10/22/24 04:00 10/22/24 04:00 10/20/24 21:10 Narrative Exam General: Well-developed, patient conversational, no acute distress. HEENT: Atraumatic/normocephalic, JUJU, Heart: RRR, S1 and S2, no murmurs noted Lungs: Clear on auscultation bilaterally, no wheezing or crackles. Abdomen: Distended, soft, generalized tenderness throughout, improving Skin: Intact, no cyanosis or edema noted. Peripheral pulses palpable Neuro: No focal neurological deficits noted Discharge Plan Plan Patient Disposition: HOME (Self Care) Patient condition on transfer: Stable Care Plan Goals: Please continue home medications as previously prescribed. Follow up with Dr. Juárez in 1-2 weeks for outpatient workup. Follow up with PCP in 1-2 weeks. Please take tylenol as needed for pain, not to exceed 4,000mg daily. Take pantoprazole 40mg once daily for gastritis. Take Lactulose 20 g twice daily for constipation. Patient will return to the ED if symptoms return or worsen. Prescriptions/Referrals Prescriptions/Med Rec: New pantoprazole 40 mg tablet,delayed release (DR/EC) 40 mg PO QDAY 30 Days Qty: 30 0RF lactulose 20 gram packet 20 g PO BID Qty: 30 1RF Continued nitroglycerin [Nitrostat] 0.4 MG tablet, sublingual 0.4 mg SL PRN Qty: 0 lisinopril-hydrochlorothiazide 20-12.5 mg Tablet 1 tab PO QDAY Jardiance 10 mg Tablet 5 mg PO QAM gabapentin 300 mg Capsule 300 mg PO BID metformin 750 mg tablet extended release 24 hr 750 mg PO QDAY Patient Comments: TAKE 1 TABLET BY MOUTH DAILY IN THE MORNING venlafaxine 75 mg Tablet 75 mg PO QDAY atorvastatin 80 mg tablet 80 mg PO HS Patient Comments: TAKE 1 TABLET BY MOUTH EVERY DAY isosorbide mononitrate 30 mg tablet extended release 24 hr 30 mg PO QDAY amlodipine 2.5 mg tablet 2.5 mg PO HS Patient Comments: TAKE 1 TABLET BY MOUTH EVERY DAY clopidogrel 75 mg tablet 75 mg PO QDAY Patient Comments: TAKE 1 TABLET BY MOUTH EVERY DAY FOR HEART AND BRAIN CIRCULATION metoprolol succinate 100 mg tablet extended release 24 hr 100 mg PO QDAY clonazepam 0.5 mg tablet 0.5 mg PO BID PRN (Reason: Anxiety) Hold Instructions: Resume on 07/08/24. May resume tomorrow due to sedation that was given today. Patient Comments: TAKE 1 TABLET TWICE A DAY BY ORAL ROUTE NEEDED FOR 7 DAYS, FOR ANXXIETY. aspirin 81 mg Tablet,Delayed Release (Dr/Ec) 81 mg PO QDAY dicyclomine 10 mg capsule 10 mg PO QDAY Patient Comments: TAKE 1 CAPSULE BY MOUTH TWICE A DAY Referrals: Nadeen Sewell FNP [Primary Care Provider] - Patient/Caregiver Discharge Instructions Education Materials: Treating Gastritis, ED Gastritis (Adult) Print Language: Maltese Stand Alone Forms: [facility] Award Info., Patient Portal Info Letter Discharge Order Discharge Orders: Discharge (Routine); Ordered 10/21/24 Ordered By: Margarette Madsen Quality Discharge Quality Measures VTE prophylaxis
[2024-10-22] MEDS: ONDANSETRON INJ 2 MG/ML INJ 2 ML 4 MG IV (09:54)
== END 2024-10-22 13:25 | disposition home or self-care (01) | DRG 368 ==
LOC: SERX 22:45 → SERHOLD 23:15 → S2NX 10-19 13:41
PROVIDERS: Specialist; Admitting Provider Student in an Organized Health Care Education/Training Program; Emergency Provider Emergency Medicine; PCP Nurse Practitioner Family; Visit Provider Internal Medicine
PROC: 0DB78ZX Excision of Stomach, Pylorus, Via Natural or Artificial Opening Endoscopic, Diagnostic (ICD-10-PCS; CPT 43239; principal; 2024-10-20 19:00)
DX: K20.91 Esophagitis, unspecified with bleeding (principal); K29.01 Acute gastritis with bleeding; K56.7 Ileus, unspecified; E10.51 Type 1 diabetes mellitus with diabetic peripheral angiopathy without gangrene; K22.2 Esophageal obstruction; Z95.5 Presence of coronary angioplasty implant and graft; I25.10 Atherosclerotic heart disease of native coronary artery without angina pectoris; I10 Essential (primary) hypertension; G89.29 Other chronic pain; Z88.5 Allergy status to narcotic agent; F41.9 Anxiety disorder, unspecified; E78.5 Hyperlipidemia, unspecified; M54.9 Dorsalgia, unspecified
CPT/HCPCS: 36415; 74174; 80048; 80053; 80076; 82150; 83036; 83605; 83690; 83735; 84100; 84145; 85025; 85610; 85652; 85730; 86140; 97162; 99291; A4649; C1769; J1200; J1815; J2175; J2250; J2270; J2405; J2470; J2543; J2919; J3010; J3490; J7030; Q9967; A9270

== ENCOUNTER 2024-10-23 14:00 | Emergency (ER) | payer MEDICARE, BC, SELFPAY ==
[2024-10-23 14:01] VITALS: BMI 28.9
[2024-10-23 14:11] VITALS: BP 156/77; PULSE 93; RESP 17; TEMP 36.4; O2SAT 96
--- NOTE | 2024-10-23 14:29 | EKG_ITS ---
[facility] Test Date: 2024-10-23 Pat Name: KD PORRAS Department: Room: - Gender: Female Mask Inspector: : [id number] Requested By: Gus Snell Order Number: [id number] Reading MD: Gus Snell Measurements Intervals [place] Rate: 78 P: 13 [place]: 161 QRS: 51 QRSD: 78 T: 68 QT: 348 QTc: 398 Interpretive Statements SINUS RHYTHM NONSPECIFIC T-WAVE ABNORMALITY Compared to ECG 04/02/2024 20:54:10 T-wave abnormality now present Myocardial infarct finding no longer present /store/S0/[id number]
--- NOTE | 2024-10-23 14:46 | PC.NURSE ---
request med from pharmacy at this time.
--- NOTE | 2024-10-23 15:04 | PD.EDABDPN ---
ED Abdominal Pain RME/HPI General Chief Complaint: Abdominal Pain Stated complaint: ABD PAIN, WORSENED TODAY Time seen by provider: 10/23/24 14:05 Arrival date/time: 10/23/24 14:00 Limitations: no limitations RME / HPI RME / HPI narrative: History of Present Illness (HPI): The patient was discharged from the hospital yesterday following an appropriate workup for abdominal pain. The evaluation included a CT scan, CT angiogram, and endoscopy. The patient was discharged with a proton pump inhibitor (PPI) and tramadol for pain management. However, the patient reports that tramadol has never been effective for her and is not willing to use it for her abdominal pain. This current episode of pain started at 1:00 in the morning and worsened after the patient consumed a boiled egg and 7-Up a couple of hours prior to arrival. The patient was brought in by her daughter. During the hospitalization it was determined that the nature of her abdominal pain is not secondary to mesenteric ischemia, as patient has severe peripheral vascular disease. Review of previous records/[place]: The patient is a 64-year-old female with a past medical history of coronary artery disease (CAD) status post stent placement, peripheral artery disease (PAD) status post stents in bilateral femoral arteries, aorta, and internal carotid artery (ICA), hypertension, type 1 diabetes mellitus, dysphagia, and esophageal stricture status post dilatation (followed by Dr. Juárez) x2. She presents with abdominal pain that started on the right lower abdomen and migrated to the left side, accompanied by nausea, abdominal bloating, and increased abdominal firmness. The patient reports feeling constipated. The pain is not associated with meals or NSAID use, and she denies having dark stools. Medical Decision Making (MDM): The patient was admitted for the management of abdominal pain with a possible gastrointestinal (GI) bleed. Dr. Juárez from GI was consulted and conducted an esophagogastroduodenoscopy (EGD). An upcoming EGD was pending for 11/13. CT angiogram (CTA) of the abdomen and pelvis showed a possible small bowel ileus, esophagitis, and gastritis with suspicious low-grade bleeding in the stomach. The EGD during hospitalization confirmed esophagitis and gastritis. The GI team advised vascular surgery evaluation and peripheral runoff for peripheral arterial disease (PAD) with outpatient follow-up recommended. The patient was treated for pain with Demerol and Dilaudid, which were effective. She was also given lactulose, MiraLAX, followed by a Fleet enema, resulting in one successful bowel movement. The patient's initial epigastric abdominal pain and associated nausea with constipation are now resolved. The patient is medically cleared and stable for discharge. She will continue her home medications as previously prescribed and follow up with Dr. Juárez and her primary care physician (PCP) in 1-2 weeks. The patient is prescribed pantoprazole 40 mg once daily for gastritis and lactulose 20 g twice daily for constipation. She expressed that she will take her home tramadol for pain. The patient is advised to return to the emergency department if her symptoms return or worsen. Adequate time was provided for the patient to ask questions, which were answered appropriately. Related Data Home Medications ?Medication ?Instructions ?Recorded ?Confirmed nitroglycerin 0.4 mg sublingual 0.4 mg SL PRN #0 tabs 05/03/16 10/19/24 tablet (Nitrostat) amlodipine 2.5 mg tablet 2.5 mg PO HS 09/10/23 10/19/24 atorvastatin 80 mg tablet 80 mg PO HS 09/10/23 10/19/24 clopidogrel 75 mg tablet 75 mg PO QDAY 09/10/23 10/19/24 isosorbide mononitrate 30 mg 30 mg PO QDAY 09/10/23 10/19/24 tablet,extended release 24 hr aspirin 81 mg tablet,delayed 81 mg PO QDAY 07/07/24 10/19/24 release clonazepam 0.5 mg tablet 0.5 mg PO BID PRN Anxiety 07/07/24 10/19/24 dicyclomine 10 mg capsule 10 mg PO QDAY 07/07/24 10/19/24 metoprolol succinate 100 mg 100 mg PO QDAY 07/07/24 10/19/24 tablet,extended release 24 hr empagliflozin 10 mg tablet 5 mg PO QAM 10/19/24 10/19/24 (Jardiance) gabapentin 300 mg capsule 300 mg PO BID 10/19/24 10/19/24 lisinopril 20 1 tab PO QDAY 10/19/24 10/19/24 mg-hydrochlorothiazide 12.5 mg tablet metformin 750 mg tablet,extended 750 mg PO QDAY 10/19/24 10/19/24 release 24 hr venlafaxine 75 mg tablet 75 mg PO QDAY 10/19/24 10/19/24 Previous Rx's ?Medication ?Instructions ?Recorded lactulose 20 gram oral packet 20 g PO BID #30 ea 10/22/24 pantoprazole 40 mg tablet,delayed 40 mg PO QDAY 1 month #30 tabs 10/22/24 release fentanyl 12 mcg/hr transdermal See Rx Instructions .Route 10/23/24 patch .COMPLEX #5 ea naloxone 4 mg/actuation nasal 1 spray intranasal Q2M #2 ea 10/23/24 spray (Narcan) Allergies Allergy/AdvReac Type Severity Reaction Status Date / Time codeine Allergy Severe HIVES Verified 10/23/24 14:03 hydrocodone Allergy Severe RASH AND Verified 10/23/24 14:03 SWELLING Iodinated Contrast Media Allergy Severe Hives Verified 10/23/24 14:03 Review of Systems Review of Systems Systems Reviewed: All systems reviewed, normal except as documented Narrative Review of Systems: Patient has no nausea or vomiting. Last bowel movement was a couple of hours prior to arrival. Points to her epigastric area ED Exam General Limitations: Present no limitations General appearance: Present in distress and other (Appears to be in pain. Is using hospital provided wheelchair) Head Head exam: Present atraumatic Eye Eye exam: Present normal appearance and PERRL ENT ENT exam: Present normal exam and normal oropharynx Chest Chest inspection: Present symmetric chest wall rise Respiratory Respiratory exam: Present normal lung sounds bilaterally and respiratory distress Cardiovascular Cardiovascular exam: Present regular rate and normal rhythm Abdominal Exam Abdominal tenderness: Present epigastrium and mild Extremities Exam Extremities exam: Present normal inspection Back Exam Back exam: Present normal inspection Neurological Exam Neurological exam: Present alert and CN II-XII intact Psychiatric Psychiatric exam: Present depressed Course Quality Measures none Orders Category Date Time Status EKG (ED ONLY) *Do not use* NOW Care 10/23/24 14:30 Completed Insert IV NOW Care 10/23/24 14:29 Active EKG (ED Only) Stat Exams 10/23/24 14:29 Draft CBC [CBC] Stat Lab 10/23/24 14:20 Completed CMP [Comprehensive Metabolic Panel] Stat Lab 10/23/24 14:20 Completed Lipase Stat Lab 10/23/24 14:20 Completed Troponin I Stat Lab 10/23/24 14:20 Completed Meperidine Inj [Demerol Inj] Med 10/23/24 14:45 Discontinued 50 mg IV X1 ONE Ondansetron Inj [Zofran Inj] Med 10/23/24 14:29 Discontinued 4 mg IV X1 ONE fentaNYL INJ [Sublimaze Inj] Med 10/23/24 16:09 Discontinued 50 mcg IV X1 ONE Vital Signs Vital signs: Vital Signs Temperature 97.5 F 10/23/24 14:11 Pulse Rate 93 10/23/24 14:11 Respiratory Rate 17 10/23/24 14:11 Blood Pressure 156/77 H 10/23/24 14:11 Pulse Oximetry (%) 96 10/23/24 14:11 Oxygen Delivery Method Room Air 10/23/24 14:11 Abdominal Pain MDM MDM Narrative MDM Narrative:: Patient's labs are all identical to her admission. Her pain did not respond to Demerol, however we were able to control her symptoms with fentanyl. Patient feels better and is requesting discharge Patient data External records reviewed:: [facility] previous records Clinical information provided by:: patient and family Social determinants that could affect healthcare access:: none Patient has the following chronic illnesses:: Severe gastritis How is presenting disease/condition affected by chronic disease/condition?: caused by Evaluation data The following diagnostics were reviewed and interpreted by me:: lab results, radiology exam(s) and EKG tracing(s) Lab and/or radiology exams considered but not ordered:: All her recent admission records and imaging studies were reviewed Interpretation Summary: Unremarkable Medications / Prescriptions Medications or Prescriptions considered but not ordered:: Unremarkable Medication administrations:: Medication Administration History Discontinued Medications Fentanyl Citrate (Fentanyl Cit Inj 50 Mcg/Ml Amp 2ml) 50 mcg IV X1 ONE Stop: 10/23/24 16:10 Last Admin: 10/23/24 16:20 Dose: 50 mcg Documented By: TM Meperidine HCl (Meperidine Inj 50 Mg/Ml Vial) 50 mg IV X1 ONE Stop: 10/23/24 14:46 Last Admin: 10/23/24 15:09 Dose: 50 mg Documented By: TM Ondansetron HCl (Ondansetron Inj 2 Mg/Ml Inj 2 Ml) 4 mg IV X1 ONE; Protocol Stop: 10/23/24 14:30 Last Admin: 10/23/24 15:08 Dose: 4 mg Documented By: DIEUDONNE Noted Consultations Consultation(s) initiated? (list below): No Diagnosis Differential diagnosis abdominal pain: abdominal pain, pancreatitis and other Most likely diagnosis given after review of the tests above:: Gastritis Admission Indicated Admission indicated?: not indicated Admission Request Was there a request for admission?: No Disposition Plan Disposition Plan: Discharge Discharge Attestation Discharge Attestation: The patient and all family members were given an opportunity to ask questions and understood the discharge instructions. Discharge instructions specifically effects, indications for sooner follow up or return to the emergency department, and the expected course of current diagnosis. Patient condition: Stable Critical Care Time Critical Care Time Critical Care Time: Yes Total Critical Care Time (min.): 35 Attestation: And review of medical records and reevaluation of the patient Discharge Plan Plan Patient Disposition: HOME (Self Care) Patient condition on transfer: Stable Prescriptions/Referrals Prescriptions/Med Rec: New fentanyl 12 mcg/hr patch 72 hour See Rx Instructions .ROUTE .COMPLEX MDD one patch every 3 days Qty: 5 0RF Rx Instructions: 1 patch to skin topically every 72 hours naloxone [Narcan] 4 mg/actuation spray,non-aerosol 1 spray intranasal Q2M Qty: 2 0RF Rx Instructions: spray 1 dose into ONE nostril; alternate nostrils w each dose until help arrives No Action nitroglycerin [Nitrostat] 0.4 MG tablet, sublingual 0.4 mg SL PRN Qty: 0 lisinopril-hydrochlorothiazide 20-12.5 mg Tablet 1 tab PO QDAY Jardiance 10 mg Tablet 5 mg PO QAM gabapentin 300 mg Capsule 300 mg PO BID metformin 750 mg tablet extended release 24 hr 750 mg PO QDAY Patient Comments: TAKE 1 TABLET BY MOUTH DAILY IN THE MORNING venlafaxine 75 mg Tablet 75 mg PO QDAY pantoprazole 40 mg tablet,delayed release (DR/EC) 40 mg PO QDAY 30 Days Qty: 30 0RF lactulose 20 gram packet 20 g PO BID Qty: 30 1RF atorvastatin 80 mg tablet 80 mg PO HS Patient Comments: TAKE 1 TABLET BY MOUTH EVERY DAY isosorbide mononitrate 30 mg tablet extended release 24 hr 30 mg PO QDAY amlodipine 2.5 mg tablet 2.5 mg PO HS Patient Comments: TAKE 1 TABLET BY MOUTH EVERY DAY clopidogrel 75 mg tablet 75 mg PO QDAY Patient Comments: TAKE 1 TABLET BY MOUTH EVERY DAY FOR HEART AND BRAIN CIRCULATION metoprolol succinate 100 mg tablet extended release 24 hr 100 mg PO QDAY clonazepam 0.5 mg tablet 0.5 mg PO BID PRN (Reason: Anxiety) Hold Instructions: Resume on 07/08/24. May resume tomorrow due to sedation that was given today. Patient Comments: TAKE 1 TABLET TWICE A DAY BY ORAL ROUTE NEEDED FOR 7 DAYS, FOR ANXXIETY. aspirin 81 mg Tablet,Delayed Release (Dr/Ec) 81 mg PO QDAY dicyclomine 10 mg capsule 10 mg PO QDAY Patient Comments: TAKE 1 CAPSULE BY MOUTH TWICE A DAY Referrals: No Primary/Family,Physician [Primary Care Provider] - In 1 week Problem List Clinical Impression: Gastritis Patient/Caregiver Discharge Instructions Discharge Activity: activity as tolerated Education Materials: ED Gastritis (Adult) Print Language: Tuvaluan Stand Alone Forms: [employer] Award Info., Patient Portal Info Letter
[2024-10-23] MEDS: ONDANSETRON INJ 2 MG/ML INJ 2 ML 4 MG IV (15:08)
[2024-10-23] MEDS: MEPERIDINE INJ 50 MG/ML VIAL IV (15:09)
[2024-10-23 15:11] LABS: Basophils % (Auto) 0 % (0-2.5); Eosinophils # (Auto) 0.1 Thou/mm3 (0.0-0.5); Eosinophils % (Auto) 1 % (0-10); Hematocrit 45.1 % (36.0-46.0); Hemoglobin 14.8 g/dL (12.0-16.0); Immature Granulocytes % (Auto) 0 % (0-0); Immature Granulocytes Auto 0.02 Thou/mm3 (0.00-0.00); Lymphocytes # (Auto) 2.2 Thou/mm3 (1.0-4.8); Lymphocytes % (Auto) 30 % (10-50); Mean Corpuscular HGB Conc 32.8 g/dl (31.0-37.0); Mean Corpuscular Hemoglobin 29.3 pg (25.0-35.0); Mean Corpuscular Volume 89 fL (80-100); Monocytes # (Auto) 0.4 Thou/mm3 (0.0-0.8); Monocytes % (Auto) 6 % (0-12); Neutrophils # (Auto) 4.6 Thou/mm3 (1.8-7.7); Neutrophils % (Auto) 64 % (37-80); Nucleated Red Blood Cell % 0 /100 WBC (0); Platelet Count 323 Thou/mm3 (140-440); RDW Standard Deviation 42.5 fL (36.4-46.3); Red Blood Count 5.05 Miln/mm3 (4.00-5.20); White Blood Count 7.3 Thou/mm3 (3.6-11.0)
[2024-10-23 15:47] LABS: Alanine Aminotransferase 16 U/L (10-49); Albumin/Globulin Ratio 1.9 (1.2-2.2); Alkaline Phosphatase 88 U/L (46-116); Anion Gap 9 (7-16); Aspartate Amino Transferase 13 U/L (0-34); BUN/Creatinine Ratio 24 Ratio (12-20); Bilirubin,Total 0.5 mg/dL (0.3-1.2); Blood Urea Nitrogen 19 mg/dL (9-23); Calcium 9.8 mg/dL (8.3-10.6); Calcium (Corrected) 9.8 mg/dL (8.5-10.1); Carbon Dioxide 27.4 mMol/L (20.0-31.0); Chloride 100 mMol/L (98-107); Creatinine (Component) 0.8 mg/dL (0.6-1.3); Globulin 2.7 gm/dL (2.3-3.5); Glucose 189 mg/dL (74-106); Lipase 43 U/L (12-53); Osmolality,Calculated 279 (275-295); Sodium 136 mMol/L (136-145); Total Protein 7.7 gm/dL (5.7-8.2); eGFR > 60 See Note
[2024-10-23 15:59] LABS: Troponin I < 0.002 ng/mL (0.0-0.045)
[2024-10-23] MEDS: fentaNYL CIT INJ 50 mCg/ML AMP 2ML IV (16:20)
== END 2024-10-23 17:23 | disposition home or self-care (01) ==
PROVIDERS: Emergency Provider Emergency Medicine
DX: K29.70 Gastritis, unspecified, without bleeding (principal); R94.31 Abnormal electrocardiogram [ECG] [EKG]
CPT/HCPCS: 36415; 80053; 83690; 84484; 85025; 93005; 96374; 99284; J2175; J2405; J3010

== ENCOUNTER 2024-10-26 18:26 | Emergency (ER) | payer MEDICARE, BC, SELFPAY ==
[2024-10-26 18:27] VITALS: BMI 28.9
[2024-10-26 18:47] VITALS: BP 137/77; PULSE 95; RESP 19; TEMP 36.7; O2SAT 97
--- NOTE | 2024-10-26 18:55 | PD.EDRME ---
Rapid Medical Screening Exam RME Arrival date/time: 10/26/24 18:26 64-year-old female with past medical history of gastritis presents emergency department complaining of epigastric pain with nausea that started this morning. Chief Complaint: Abdominal Pain Time Seen by Provider: 10/26/24 18:49 Vital signs: Vital Signs Temperature 98.0 F 10/26/24 18:47 Pulse Rate 95 10/26/24 18:47 Respiratory Rate 19 10/26/24 18:47 Blood Pressure 137/77 H 10/26/24 18:47 Pulse Oximetry (%) 97 10/26/24 18:47 Oxygen Delivery Method Room Air 10/26/24 18:47 Vital signs reviewed by provider: Yes
[2024-10-26 19:12] LABS: Collection Type, Urine Clean Catch
[2024-10-26] MEDS: FAMOTIDINE 20 MG TABLET 40 MG PO (19:14)
[2024-10-26] MEDS: MG HYD/AL HYD/SIME (Maalox Reg) SUSP 30 ML UDC PO (19:14)
[2024-10-26 19:16] LABS: Bilirubin,Urine Negative (Negative); Blood,Urine Negative (Negative); Clarity,Urine Clear (Clear/Hazy); Color,Urine Lt-Yellow (Lt Yel-Yel); Culture Indicated,Urine Not Indicated; Glucose, Urine 4+ (Negative); Ketones,Urine Trace (Negative); Leukocyte Esterase,Urine Negative (Negative); Nitrite,Urine Negative (Negative); Protein,Urine Negative (Neg - Trace); RBC,Urine 3 /hpf (0-3); Specific Gravity,Urine 1.038 (1.001-1.035); Squamous Epithelial Cell,Urine < 1 /hpf (0-5); Urobilinogen,Urine Negative mg/dL (0.0-1.0); WBC,Urine 6 /hpf (0-5)
[2024-10-26 19:22] LABS: Basophils % (Auto) 0 % (0-2.5); Eosinophils # (Auto) 0.1 Thou/mm3 (0.0-0.5); Eosinophils % (Auto) 1 % (0-10); Hematocrit 42.7 % (36.0-46.0); Hemoglobin 14.1 g/dL (12.0-16.0); Immature Granulocytes % (Auto) 0 % (0-0); Immature Granulocytes Auto 0.03 Thou/mm3 (0.00-0.00); Lymphocytes # (Auto) 1.7 Thou/mm3 (1.0-4.8); Lymphocytes % (Auto) 18 % (10-50); Mean Corpuscular Hemoglobin 29.1 pg (25.0-35.0); Mean Corpuscular Volume 88 fL (80-100); Monocytes # (Auto) 0.7 Thou/mm3 (0.0-0.8); Monocytes % (Auto) 7 % (0-12); Neutrophils # (Auto) 7.1 Thou/mm3 (1.8-7.7); Neutrophils % (Auto) 74 % (37-80); Nucleated Red Blood Cell % 0 /100 WBC (0); Platelet Count 297 Thou/mm3 (140-440); RDW Standard Deviation 42.7 fL (36.4-46.3); Red Blood Count 4.84 Miln/mm3 (4.00-5.20); White Blood Count 9.6 Thou/mm3 (3.6-11.0)
[2024-10-26 19:40] LABS: Alanine Aminotransferase 10 U/L (10-49); Albumin, Serum 4.6 gm/dL (3.4-4.8); Albumin/Globulin Ratio 1.5 (1.2-2.2); Alkaline Phosphatase 104 U/L (46-116); Anion Gap 7 (7-16); Aspartate Amino Transferase 14 U/L (0-34); BUN/Creatinine Ratio 20 Ratio (12-20); Bilirubin,Total 0.6 mg/dL (0.3-1.2); Blood Urea Nitrogen 14 mg/dL (9-23); Carbon Dioxide 26.2 mMol/L (20.0-31.0); Chloride 108 mMol/L (98-107); Creatinine (Component) 0.7 mg/dL (0.6-1.3); Estimated Creatinine Clearance 74.3 mL/min (>60); Glucose 198 mg/dL (74-106); Lipase 41 U/L (12-53); Osmolality,Calculated 287 (275-295); Potassium 4.1 mMol/L (3.4-5.1); Sodium 141 mMol/L (136-145); Total Protein 7.6 gm/dL (5.7-8.2); eGFR > 60 See Note
[2024-10-26 21:02] VITALS: BP 158/75; PULSE 88; RESP 18; TEMP 36.8; O2SAT 95
[2024-10-26] MEDS: LIDOCAINE VISCOUS 2% 15 ML UDC PO ×2 (21:28→23:40)
--- NOTE | 2024-10-26 21:32 | EDNOTE_ITS ---
ED Abdominal Pain RME/HPI General Chief Complaint: Abdominal Pain Stated complaint: I HAVE GASTRITIS Time seen by provider: 10/26/24 18:49 Arrival date/time: 10/26/24 18:26 Source: patient Mode of arrival: ambulatory Limitations: no limitations RME / HPI RME / HPI narrative: 10/26/24 18:26 64-year-old female with past medical history of gastritis presents emergency department complaining of epigastric pain with nausea that started this morning. DR. BOTELLO MAIN ED EVALUATION: 64 year old female presents to the Emergency Department with complaint of epigastric pain. Pain is described as burning and rated moderate in severity. Associated symptoms include nausea but no vomiting. No other symptoms reported at this time. PMHx: Gastritis, diabetes, CVA, CAD, hyperlipidemia Social Hx: No tobacco, alcohol, or substance use. Related Data Home Medications ?Medication ?Instructions ?Recorded ?Confirmed nitroglycerin 0.4 mg sublingual 0.4 mg SL PRN #0 tabs 05/03/16 10/19/24 tablet (Nitrostat) amlodipine 2.5 mg tablet 2.5 mg PO HS 09/10/23 10/19/24 atorvastatin 80 mg tablet 80 mg PO HS 09/10/23 10/19/24 clopidogrel 75 mg tablet 75 mg PO QDAY 09/10/23 10/19/24 isosorbide mononitrate 30 mg 30 mg PO QDAY 09/10/23 10/19/24 tablet,extended release 24 hr aspirin 81 mg tablet,delayed 81 mg PO QDAY 07/07/24 10/19/24 release clonazepam 0.5 mg tablet 0.5 mg PO BID PRN Anxiety 07/07/24 10/19/24 dicyclomine 10 mg capsule 10 mg PO QDAY 07/07/24 10/19/24 metoprolol succinate 100 mg 100 mg PO QDAY 07/07/24 10/19/24 tablet,extended release 24 hr empagliflozin 10 mg tablet 5 mg PO QAM 10/19/24 10/19/24 (Jardiance) gabapentin 300 mg capsule 300 mg PO BID 10/19/24 10/19/24 lisinopril 20 1 tab PO QDAY 10/19/24 10/19/24 mg-hydrochlorothiazide 12.5 mg tablet metformin 750 mg tablet,extended 750 mg PO QDAY 10/19/24 10/19/24 release 24 hr venlafaxine 75 mg tablet 75 mg PO QDAY 10/19/24 10/19/24 Previous Rx's ?Medication ?Instructions ?Recorded lactulose 20 gram oral packet 20 g PO BID #30 ea 10/22/24 pantoprazole 40 mg tablet,delayed 40 mg PO QDAY 1 month #30 tabs 10/22/24 release fentanyl 12 mcg/hr transdermal See Rx Instructions .Route 10/23/24 patch .COMPLEX #5 ea naloxone 4 mg/actuation nasal 1 spray intranasal Q2M #2 ea 10/23/24 spray (Narcan) tramadol 50 mg tablet 50 mg PO TID PRN pain #20 tabs 10/24/24 sucralfate 100 mg/mL oral 10 ml PO TID #300 mL 10/26/24 suspension Allergies Allergy/AdvReac Type Severity Reaction Status Date / Time codeine Allergy Severe HIVES Verified 10/26/24 18:28 hydrocodone Allergy Severe RASH AND Verified 10/26/24 18:28 SWELLING Iodinated Contrast Media Allergy Severe Hives Verified 10/26/24 18:28 Review of Systems Review of Systems Systems Reviewed: All systems reviewed, normal except as documented Narrative Review of Systems: GEN: No fever, no chills, no weight loss EYES: No discharge, no visual changes, no pain HEENT: No ear pain, no congestion, no sore throat PULM: No shortness of breath, no cough, no congestion CV: No chest pain, no dyspnea on exertion, no palpitations GI: + nausea, no vomiting, no diarrhea, + epigastric pain, no constipation : No frequency, no urgency and no dysuria MUSC/SKEL: No joint pain, no back pain SKIN: No rash PSYCH: No hallucinations, no depression HEME/LYMPH: No easy bleeding or bruising tendencies NEURO: No weakness, no headache Past Medical History Past Medical History NEUROLOGIC: Positive Neurological Disorders, Cerebrovascular Accident and Transient Ischemic Attacks (TIA) CARDIAC: Positive Myocardial Infarction, Coronary Artery Disease, Hypercholesterolemia and Hypertension RESPIRATORY: Positive Asthma GASTROINTESTINAL: Positive Gastrointestinal Disorders, Diverticulosis and Gastroesophageal Reflux Disease REPRODUCTIVE: Positive Previous Pregnancies MUSCULOSKELETAL: Positive Musculoskeletal Disorders, Arthritis and Carpal Tunnel Syndrome ENDOCRINE: Positive Endocrine Disorders, Diabetes Mellitus Type 2 and Hyperthyroidism PSYCHO/SOCIAL: Positive Anxiety OTHER HISTORY: Positive Falls and Chicken Pox Family History FAMILY HISTORY: Positive Family Cancer Surgical History SURGICAL: Positive Cardiac Surgery, Coronary Stent, Tonsillectomy, Tubal Ligation and Section Social History SMOKING STATUS: Never smoker SECOND HAND EXPOSURE: Yes SUBSTANCE USE: does not use ALCOHOL: Never ED Exam Narrative Physical exam: GENERAL APPEARANCE: alert and oriented x 4, well-developed, well-nourished, no acute distress VITALS: All vitals were reviewed and the pulse ox is 95% on room air, which is normal according to my interpretation. HEENT: Normocephalic, atraumatic; pupils equal, round, reactive to light; EOMI; mucous membranes pink, moist; oropharynx clear NECK: Supple LUNGS: CTABL; no wheezes, no rales, no rhonchi HEART: Regular rate, regular rhythm; normal S1, S2; no murmurs ABDOMEN: non distended; normal BS; soft, no tenderness, no guarding, no rebound; no masses, no organomegaly, no hernia BACK: no CVA tenderness EXTREMITIES: atraumatic; no edema NEUROLOGIC: awake; alert and oriented x4; cranial nerves II-XII grossly intact; no focal sensory or motor deficits PSYCHIATRIC: appropriate mood and affect SKIN: warm, dry, normal color; no rashes General Limitations: Present no limitations Course Quality Measures none Orders Category Date Time Status CBC Stat Lab 10/26/24 19:12 Completed CMP [Comprehensive Metabolic Panel] Stat Lab 10/26/24 19:12 Completed Lipase Stat Lab 10/26/24 19:12 Completed Troponin I Stat Lab 10/26/24 22:27 Completed Urinalysis, C/S if Indicated Stat Lab 10/26/24 19:04 Completed Famotidine [Pepcid] Med 10/26/24 18:55 Discontinued 40 mg PO X1 ONE Lidocaine 2% Viscous [Xylocaine 2% Viscous] Med 10/26/24 21:25 Discontinued 15 ml PO X1 ONE Lidocaine 2% Viscous [Xylocaine 2% Viscous] Med 10/26/24 23:28 Discontinued 15 ml PO X1 ONE Morphine Oral LIQUID Med 10/26/24 22:09 Discontinued 10 mg PO X1 ONE Ondansetron Odt [Zofran Odt] Med 10/26/24 22:09 Discontinued 4 mg PO X1 ONE Ondansetron Odt [Zofran Odt] Med 10/26/24 23:31 Discontinued 4 mg PO X1 ONE Pantoprazole [Protonix] Med 10/26/24 22:09 Discontinued 40 mg PO X1 ONE Sucralfate Susp [Carafate Susp] Med 10/26/24 22:09 Discontinued 1 gm PO X1 ONE mg Hyd/Al Hyd/Miguel Angel Susp [Maalox Susp] Med 10/26/24 18:55 Discontinued 30 ml PO X1 ONE Vital Signs Vital signs: Vital Signs Temperature 98.0 F 10/26/24 18:47 Pulse Rate 95 10/26/24 18:47 Respiratory Rate 19 10/26/24 18:47 Blood Pressure 137/77 H 10/26/24 18:47 Pulse Oximetry (%) 97 10/26/24 18:47 Oxygen Delivery Method Room Air 10/26/24 18:47 Abdominal Pain MDM MDM Narrative MDM Narrative:: IAshley am scribing for and in the presence of Dr. Botello. Patient data External records reviewed:: [facility] previous records (Reviewed last ED visit dated 10/23/24, discharged with the following: Gastritis.) Clinical information provided by:: patient Social determinants that could affect healthcare access:: none Patient has the following chronic illnesses:: Gastritis, diabetes, CVA, CAD, hyperlipidemia How is presenting disease/condition affected by chronic disease/condition?: caused by Evaluation data The following diagnostics were reviewed and interpreted by me:: lab results Lab and/or radiology exams considered but not ordered:: none Interpretation Summary: WBC WNL, UA neg Medications / Prescriptions Medications or Prescriptions considered but not ordered:: none Medication administrations:: Medication Administration History Discontinued Medications Al Hydrox/Mg Hydrox/Simethicone (Mg Hyd/Al Hyd/Miguel Angel (Maalox Reg) Susp 30 Ml Udc) 30 ml PO X1 ONE Stop: 10/26/24 18:56 Last Admin: 10/26/24 19:14 Dose: 30 ml Documented By: Famotidine (Famotidine 20 Mg Tablet) 40 mg PO X1 ONE Stop: 10/26/24 18:56 Last Admin: 10/26/24 19:14 Dose: 40 mg Documented By: Lidocaine HCl (Lidocaine Viscous 2% 15 Ml Udc) 15 ml PO X1 ONE Stop: 10/26/24 21:26 Last Admin: 10/26/24 21:28 Dose: 15 ml Documented By: CB Lidocaine HCl (Lidocaine Viscous 2% 15 Ml Udc) 15 ml PO X1 ONE Stop: 10/26/24 23:29 Last Admin: 10/26/24 23:40 Dose: 15 ml Documented By: EE Morphine Sulfate (Morphine Sulf Liqd 10 Mg/5 Ml Udc) 10 mg PO X1 ONE Stop: 10/26/24 22:10 Last Admin: 10/26/24 23:05 Dose: 10 mg Documented By: JAKE Ondansetron HCl (Ondansetron Odt 4 Mg Tabrap) 4 mg PO X1 ONE; Protocol Stop: 10/26/24 22:10 Last Admin: 10/26/24 22:27 Dose: 4 mg Documented By: SE Ondansetron HCl (Ondansetron Odt 4 Mg Tabrap) 4 mg PO X1 ONE; Protocol Stop: 10/26/24 23:32 Last Admin: 10/26/24 23:40 Dose: 4 mg Documented By: EE Pantoprazole Sodium (Pantoprazole 40 Mg Tablet) 40 mg PO X1 ONE Stop: 10/26/24 22:10 Last Admin: 10/26/24 23:06 Dose: 40 mg Documented By: JAKE Sucralfate (Sucralfate Susp 1 Gm/10 Ml Udc) 1 gm PO X1 ONE Stop: 10/26/24 22:10 Last Admin: 10/26/24 23:06 Dose: 1 gm Documented By: JAKE see above Consultations Consultation(s) initiated? (list below): No Diagnosis Differential diagnosis abdominal pain: abdominal pain and other (GERD, gastritis) Most likely diagnosis given after review of the tests above:: Gastritis Admission Indicated Admission indicated?: not indicated Admission Request Was there a request for admission?: No Disposition Plan Disposition Plan: Discharge Discharge Attestation Discharge Attestation: The patient and all family members were given an opportunity to ask questions and understood the discharge instructions. Discharge instructions specifically effects, indications for sooner follow up or return to the emergency department, and the expected course of current diagnosis. Patient condition: Stable Discharge Plan Plan Patient Disposition: HOME (Self Care) Prescriptions/Referrals Prescriptions/Med Rec: New sucralfate 100 mg/mL suspension 10 ml PO TID Qty: 300 0RF Rx Instructions: swish in mouth and swallow; use after food/drink No Action nitroglycerin [Nitrostat] 0.4 MG tablet, sublingual 0.4 mg SL PRN Qty: 0 lisinopril-hydrochlorothiazide 20-12.5 mg Tablet 1 tab PO QDAY Jardiance 10 mg Tablet 5 mg PO QAM gabapentin 300 mg Capsule 300 mg PO BID metformin 750 mg tablet extended release 24 hr 750 mg PO QDAY Patient Comments: TAKE 1 TABLET BY MOUTH DAILY IN THE MORNING venlafaxine 75 mg Tablet 75 mg PO QDAY pantoprazole 40 mg tablet,delayed release (DR/EC) 40 mg PO QDAY 30 Days Qty: 30 0RF lactulose 20 gram packet 20 g PO BID Qty: 30 1RF atorvastatin 80 mg tablet 80 mg PO HS Patient Comments: TAKE 1 TABLET BY MOUTH EVERY DAY isosorbide mononitrate 30 mg tablet extended release 24 hr 30 mg PO QDAY amlodipine 2.5 mg tablet 2.5 mg PO HS Patient Comments: TAKE 1 TABLET BY MOUTH EVERY DAY clopidogrel 75 mg tablet 75 mg PO QDAY Patient Comments: TAKE 1 TABLET BY MOUTH EVERY DAY FOR HEART AND BRAIN CIRCULATION metoprolol succinate 100 mg tablet extended release 24 hr 100 mg PO QDAY clonazepam 0.5 mg tablet 0.5 mg PO BID PRN (Reason: Anxiety) Hold Instructions: Resume on 07/08/24. May resume tomorrow due to sedation that was given today. Patient Comments: TAKE 1 TABLET TWICE A DAY BY ORAL ROUTE NEEDED FOR 7 DAYS, FOR ANXXIETY. aspirin 81 mg Tablet,Delayed Release (Dr/Ec) 81 mg PO QDAY dicyclomine 10 mg capsule 10 mg PO QDAY Patient Comments: TAKE 1 CAPSULE BY MOUTH TWICE A DAY fentanyl 12 mcg/hr patch 72 hour See Rx Instructions .ROUTE .COMPLEX MDD one patch every 3 days Qty: 5 0RF Rx Instructions: 1 patch to skin topically every 72 hours naloxone [Narcan] 4 mg/actuation spray,non-aerosol 1 spray intranasal Q2M Qty: 2 0RF Rx Instructions: spray 1 dose into ONE nostril; alternate nostrils w each dose until help arrives tramadol 50 mg tablet 50 mg PO TID PRN (Reason: pain) Qty: 20 0RF Referrals: Rickie Starr([facility])MD [Primary Care Provider] - In 1 week Problem List Clinical Impression: Gastritis Patient/Caregiver Discharge Instructions Education Materials: ED Gastritis (Adult) Print Language: [place] Stand Alone Forms: Ceci Award Info., Patient Portal Info Letter
[2024-10-26] MEDS: ONDANSETRON ODT 4 MG TABRAP PO ×2 (22:27→23:40)
[2024-10-26 22:52] LABS: Troponin I < 0.002 ng/mL (0.0-0.045)
[2024-10-26 22:53] VITALS: BP 175/96; PULSE 89; RESP 18; TEMP 36.5; O2SAT 96
[2024-10-26] MEDS: MORPHINE SULF LIQD 10 MG/5 ML UDC PO (23:05)
[2024-10-26] MEDS: PANTOPRAZOLE 40 MG TABLET PO (23:06)
[2024-10-26] MEDS: SUCRALFATE SUSP 1 GM/10 ML UDC PO (23:06)
== END 2024-10-26 23:41 | disposition home or self-care (01) ==
PROVIDERS: Emergency Provider Emergency Medicine; PCP Family Medicine
DX: K29.70 Gastritis, unspecified, without bleeding (principal)
CPT/HCPCS: 36415; 80053; 81001; 83690; 84484; 85025; 99283; J3490; Q0162; A9270

== ENCOUNTER 2024-11-15 20:04 | Emergency (ER) | payer MEDICARE, BC, SELFPAY ==
[2024-11-15 20:05] VITALS: BMI 28.9
== END 2024-11-15 20:53 | disposition left against medical advice (07) ==
LOC: SERX 20:54
PROVIDERS: Emergency Provider Emergency Medicine
DX: Z53.21 Procedure and treatment not carried out due to patient leaving prior to being seen by health care provider (principal)

== ENCOUNTER 2024-12-02 22:53 | Emergency (ER) | payer MEDICARE, BC, SELFPAY ==
[2024-12-02 23:07] VITALS: BP 126/79; PULSE 74; RESP 18; TEMP 36.4; O2SAT 95; BMI 27.6
--- NOTE | 2024-12-02 23:20 | PD.EDRME ---
Rapid Medical Screening Exam RME Arrival date/time: 12/02/24 22:53 64-year-old female presents emergency department complaining of right upper quadrant abdominal pain that radiates towards back. Chief Complaint: Abdominal Pain Time Seen by Provider: 12/02/24 23:18 Vital signs: Vital Signs Temperature 97.6 F 12/02/24 23:07 Pulse Rate 74 12/02/24 23:07 Respiratory Rate 18 12/02/24 23:07 Blood Pressure 126/79 12/02/24 23:07 Pulse Oximetry (%) 95 12/02/24 23:07 Oxygen Delivery Method Room Air 12/02/24 23:07 Vital signs reviewed by provider: Yes
[2024-12-02] MEDS: KETOROLAC INJ 60 MG/2 ML VIAL 30 MG IM (23:38)
[2024-12-02 23:58] LABS: Basophils % (Auto) 0 % (0-2.5); Eosinophils # (Auto) 0.1 Thou/mm3 (0.0-0.5); Eosinophils % (Auto) 1 % (0-10); Hematocrit 42.2 % (36.0-46.0); Hemoglobin 14.2 g/dL (12.0-16.0); Immature Granulocytes % (Auto) 0 % (0-0); Immature Granulocytes Auto 0.01 Thou/mm3 (0.00-0.00); Lymphocytes # (Auto) 3.6 Thou/mm3 (1.0-4.8); Lymphocytes % (Auto) 44 % (10-50); Mean Corpuscular HGB Conc 33.6 g/dl (31.0-37.0); Mean Corpuscular Hemoglobin 28.9 pg (25.0-35.0); Mean Corpuscular Volume 86 fL (80-100); Monocytes # (Auto) 0.5 Thou/mm3 (0.0-0.8); Monocytes % (Auto) 6 % (0-12); Neutrophils # (Auto) 4.1 Thou/mm3 (1.8-7.7); Neutrophils % (Auto) 49 % (37-80); Nucleated Red Blood Cell % 0 /100 WBC (0); Platelet Count 305 Thou/mm3 (140-440); RDW Standard Deviation 39.9 fL (36.4-46.3); Red Blood Count 4.91 Miln/mm3 (4.00-5.20); White Blood Count 8.3 Thou/mm3 (3.6-11.0)
[2024-12-02] MEDS: MG HYD/AL HYD/SIME (Maalox Reg) SUSP 30 ML UDC PO (23:59)
[2024-12-02] MEDS: FAMOTIDINE 20 MG TABLET PO (23:59)
[2024-12-02] MEDS: PANTOPRAZOLE 40 MG TABLET PO (23:59)
[2024-12-03 00:07] LABS: Alanine Aminotransferase 17 U/L (10-49); Albumin, Serum 4.5 gm/dL (3.4-4.8); Albumin/Globulin Ratio 1.5 (1.2-2.2); Alkaline Phosphatase 93 U/L (46-116); Anion Gap 6 (7-16); Aspartate Amino Transferase 16 U/L (0-34); BUN/Creatinine Ratio 25 Ratio (12-20); Bilirubin,Total 0.3 mg/dL (0.3-1.2); Blood Urea Nitrogen 20 mg/dL (9-23); Calcium 9.7 mg/dL (8.3-10.6); Calcium (Corrected) 9.7 mg/dL (8.5-10.1); Carbon Dioxide 27.8 mMol/L (20.0-31.0); Chloride 105 mMol/L (98-107); Creatinine (Component) 0.8 mg/dL (0.6-1.3); Estimated Creatinine Clearance 68.7 mL/min (>60); Glucose 133 mg/dL (74-106); Lipase 46 U/L (12-53); Osmolality,Calculated 282 (275-295); Sodium 139 mMol/L (136-145); Total Protein 7.5 gm/dL (5.7-8.2); eGFR > 60 See Note
[2024-12-03] MEDS: SUCRALFATE 1 GM TABLET PO (00:37)
[2024-12-03 00:39] LABS: Collection Type, Urine Clean Catch
[2024-12-03 00:53] LABS: Amphetamine/Methamp Scrn,U Negative (Negative); Barbiturate Screen,Urine Negative (Negative); Benzodiazepines Screen,Urine Negative (Negative); Benzoylecgonine Screen, Ur Negative (Negative); Fentanyl Screen,Urine Negative (Negative); Opiate Screen,Urine Negative (Negative); THC Screen,Urine Negative (Negative)
[2024-12-03 01:36] LABS: Bilirubin,Urine Negative (Negative); Blood,Urine Negative (Negative); Clarity,Urine Clear (Clear/Hazy); Color,Urine Lt-Yellow (Lt Yel-Yel); Glucose, Urine Negative (Negative); Ketones,Urine Negative (Negative); Leukocyte Esterase,Urine Positive (Negative); Nitrite,Urine Negative (Negative); Protein,Urine Trace (Neg - Trace); RBC,Urine 10 /hpf (0-3); Squamous Epithelial Cell,Urine 1 /hpf (0-5); Urobilinogen,Urine Negative mg/dL (0.0-1.0); WBC,Urine 59 /hpf (0-5)
[2024-12-03 01:40] LABS: Culture Indicated,Urine Yes
--- NOTE | 2024-12-03 01:44 | PD.EDABDPN ---
ED Abdominal Pain RME/HPI General Chief Complaint: Abdominal Pain Stated complaint: Sharp Right Abdominal Pain Time seen by provider: 12/02/24 23:18 Arrival date/time: 12/02/24 22:53 64-year-old female presents emergency department complaining of right upper quadrant abdominal pain that radiates towards back. Source: patient Mode of arrival: ambulatory Limitations: no limitations RME / HPI RME / HPI narrative: 12/02/24 22:53 64-year-old female presents emergency department complaining of right upper quadrant abdominal pain that radiates towards back. Related Data Home Medications ?Medication ?Instructions ?Recorded ?Confirmed nitroglycerin 0.4 mg sublingual 0.4 mg SL PRN #0 tabs 05/03/16 10/19/24 tablet (Nitrostat) amlodipine 2.5 mg tablet 2.5 mg PO HS 09/10/23 10/19/24 atorvastatin 80 mg tablet 80 mg PO HS 09/10/23 10/19/24 clopidogrel 75 mg tablet 75 mg PO QDAY 09/10/23 10/19/24 isosorbide mononitrate 30 mg 30 mg PO QDAY 09/10/23 10/19/24 tablet,extended release 24 hr aspirin 81 mg tablet,delayed 81 mg PO QDAY 07/07/24 10/19/24 release clonazepam 0.5 mg tablet 0.5 mg PO BID PRN Anxiety 07/07/24 10/19/24 dicyclomine 10 mg capsule 10 mg PO QDAY 07/07/24 10/19/24 metoprolol succinate 100 mg 100 mg PO QDAY 07/07/24 10/19/24 tablet,extended release 24 hr empagliflozin 10 mg tablet 5 mg PO QAM 10/19/24 10/19/24 (Jardiance) gabapentin 300 mg capsule 300 mg PO BID 10/19/24 10/19/24 lisinopril 20 1 tab PO QDAY 10/19/24 10/19/24 mg-hydrochlorothiazide 12.5 mg tablet metformin 750 mg tablet,extended 750 mg PO QDAY 10/19/24 10/19/24 release 24 hr venlafaxine 75 mg tablet 75 mg PO QDAY 10/19/24 10/19/24 Previous Rx's ?Medication ?Instructions ?Recorded lactulose 20 gram oral packet 20 g PO BID #30 ea 10/22/24 fentanyl 12 mcg/hr transdermal See Rx Instructions .Route 10/23/24 patch .COMPLEX #5 ea naloxone 4 mg/actuation nasal 1 spray intranasal Q2M #2 ea 10/23/24 spray (Narcan) tramadol 50 mg tablet 50 mg PO TID PRN pain #20 tabs 10/24/24 sucralfate 100 mg/mL oral 10 ml PO TID #300 mL 10/26/24 suspension acetaminophen 500 mg capsule 500 mg PO Q6H PRN pain #30 caps 12/03/24 cephalexin 500 mg capsule 500 mg PO BID 5 days #10 caps 12/03/24 Allergies Allergy/AdvReac Type Severity Reaction Status Date / Time codeine Allergy Severe HIVES Verified 11/15/24 20:07 hydrocodone Allergy Severe RASH AND Verified 11/15/24 20:07 SWELLING Iodinated Contrast Media Allergy Severe Hives Verified 11/15/24 20:07 Review of Systems Review of Systems Systems Reviewed: All systems reviewed, normal except as documented Constitutional Constitutional: Reports system reviewed and no additional complaints, except as documented, Denies body ache(s), Denies chills and Denies fever(s) Eyes Eyes: Reports system reviewed and no additional complaints, except as documented and Denies change in vision ENT Ears, Nose, Mouth, and Throat: Reports system reviewed and no additional complaints, except as documented, Denies disequilibrium, Denies dizziness, Denies sore throat and Denies vertigo Cardiovascular Cardiovascular: Reports system reviewed and no additional complaints, except as documented, Denies chest pain and Denies dyspnea Respiratory Respiratory: Reports system reviewed and no additional complaints, except as documented, Denies chest congestion, Denies cough and Denies dyspnea Gastrointestinal Gastrointestinal: Reports system reviewed and no additional complaints, except as documented, Reports abdominal pain, Denies nausea and Denies vomiting Musculoskeletal Musculoskeletal: Reports system reviewed and no additional complaints, except as documented, Denies abnormal gait and Denies arthralgias Integumentary/Breasts Skin/Breast: Reports system reviewed and no additional complaints, except as documented, Denies erythema, Denies rash and Denies wounds Neurologic Neurologic: Reports system reviewed and no additional complaints, except as documented, Denies abnormal gait, Denies disequilibrium, Denies dizziness and Denies vertigo Past Medical History Past Medical History NEUROLOGIC: Positive Neurological Disorders, Cerebrovascular Accident and Transient Ischemic Attacks (TIA); Negative Seizures CARDIAC: Positive Cardiac Disorders, Myocardial Infarction, Coronary Artery Disease, Hypercholesterolemia and Hypertension; Negative Congestive Heart Failure RESPIRATORY: Positive Asthma; Negative Chronic Obstructive Pulmonary Disease (COPD) GASTROINTESTINAL: Positive Gastrointestinal Disorders, Diverticulosis and Gastroesophageal Reflux Disease; Negative Gastrointestinal Bleed, Hiatal Hernia or Hemorrhoids GENITOURINARY: Negative Genitourinary Disorders or Renal Disease REPRODUCTIVE: Positive Previous Pregnancies MUSCULOSKELETAL: Positive Musculoskeletal Disorders, Arthritis and Carpal Tunnel Syndrome ENDOCRINE: Positive Endocrine Disorders, Diabetes Mellitus Type 2 and Hyperthyroidism; Negative Diabetes Mellitus Type 1 or Hypothyroidism HEMATOLOGIC: Negative Blood Disorders or Sickle Cell Disease PSYCHO/SOCIAL: Positive Anxiety; Negative Depression OTHER HISTORY: Positive Falls and Chicken Pox; Negative Blood Transfusions, Blood Transfusion Reaction, Anesthesia Reactions or Cancer Family History FAMILY HISTORY: Positive Family Cancer Surgical History SURGICAL: Positive Cardiac Surgery, Coronary Stent, Tonsillectomy, Tubal Ligation and Section Social History SMOKING STATUS: Former smoker SECOND HAND EXPOSURE: Yes SUBSTANCE USE: does not use ED Exam General Limitations: Present no limitations General appearance: Present alert and in no apparent distress Head Head exam: Present atraumatic Eye Eye exam: Present normal appearance, PERRL and EOMI ENT ENT exam: Present normal exam, normal oropharynx and mucous membranes moist Neck Neck exam: Present normal inspection, full ROM and trachea midline Chest Chest inspection: Present normal inspection and symmetric chest wall rise Respiratory Respiratory exam: Present normal lung sounds bilaterally Cardiovascular Cardiovascular exam: Present regular rate, normal rhythm and normal heart sounds Abdominal Exam Abdominal exam: Present soft and normal bowel sounds Extremities Exam Extremities exam: Present normal inspection and full ROM Back Exam Back exam: Present normal inspection and full ROM Neurological Exam Neurological exam: Present alert, oriented X3 and CN II-XII intact Psychiatric Psychiatric exam: Present normal affect and normal mood Skin Skin exam: Present warm, dry, intact and normal color Course Quality Measures none Orders Category Date Time Status CBC Stat Lab 12/02/24 23:33 Completed CMP [Comprehensive Metabolic Panel] Stat Lab 12/02/24 23:33 Completed Drug Screen,Urine Stat Lab 12/03/24 00:14 Completed Lipase Stat Lab 12/02/24 23:33 Completed Urinalysis, C/S if Indicated Stat Lab 12/03/24 00:14 Completed Urine Culture Stat Lab 12/03/24 00:14 Received Famotidine [Pepcid] Med 12/02/24 23:45 Discontinued 20 mg PO X1 ONE Ketorolac Inj [Toradol Inj] Med 12/02/24 23:19 Discontinued 30 mg IM X1 ONE Pantoprazole [Protonix] Med 12/02/24 23:45 Discontinued 40 mg PO X1 ONE Sucralfate [Carafate] Med 12/02/24 23:45 Discontinued 1 gm PO X1 ONE mg Hyd/Al Hyd/Miguel Angel Susp [Maalox Susp] Med 12/02/24 23:45 Discontinued 30 ml PO X1 ONE Vital Signs Vital signs: Vital Signs Temperature 97.6 F 12/02/24 23:07 Pulse Rate 74 12/02/24 23:07 Respiratory Rate 18 12/02/24 23:07 Blood Pressure 126/79 12/02/24 23:07 Pulse Oximetry (%) 95 12/02/24 23:07 Oxygen Delivery Method Room Air 12/02/24 23:07 95% room air within normal limits Abdominal Pain MDM MDM Narrative MDM Narrative:: 64-year-old female presents emergency department complaining of right upper quadrant abdominal pain that radiates towards back. CBC unremarkable for any leukocytosis or anemia. CMP unremarkable for any elevated LFTs or gross electrolyte abnormalities. Urinalysis positive for leukocytes, WBCs, and RBCs. Patient likely has UTI we will treat. Patient data External records reviewed:: [facility] previous records Clinical information provided by:: patient Social determinants that could affect healthcare access:: none Patient has the following chronic illnesses:: See chart How is presenting disease/condition affected by chronic disease/condition?: uneffected by Evaluation data The following diagnostics were reviewed and interpreted by me:: lab results Lab and/or radiology exams considered but not ordered:: Ordered Interpretation Summary: Interpreted by me Medications / Prescriptions Medications or Prescriptions considered but not ordered:: Ordered Medication administrations:: Medication Administration History Discontinued Medications Al Hydrox/Mg Hydrox/Simethicone (Mg Hyd/Al Hyd/Miguel Angel (Maalox Reg) Susp 30 Ml Udc) 30 ml PO X1 ONE Stop: 12/02/24 23:46 Last Admin: 12/02/24 23:59 Dose: 30 ml Documented By: Famotidine (Famotidine 20 Mg Tablet) 20 mg PO X1 ONE Stop: 12/02/24 23:46 Last Admin: 12/02/24 23:59 Dose: 20 mg Documented By: Ketorolac Tromethamine (Ketorolac Inj 60 Mg/2 Ml Vial) 30 mg IM X1 ONE Stop: 12/02/24 23:20 Last Admin: 12/02/24 23:38 Dose: 30 mg Documented By: OA Pantoprazole Sodium (Pantoprazole 40 Mg Tablet) 40 mg PO X1 ONE Stop: 12/02/24 23:46 Last Admin: 12/02/24 23:59 Dose: 40 mg Documented By: SE Sucralfate (Sucralfate 1 Gm Tablet) 1 gm PO X1 ONE Stop: 12/02/24 23:46 Last Admin: 12/03/24 00:37 Dose: 1 gm Documented By: SE Given Consultations Consultation(s) initiated? (list below): No Diagnosis Differential diagnosis abdominal pain: abdominal pain, calculus of kidney, constipation, diverticulitis, endometriosis, gastroenteritis, pancreatitis and small bowel obstruction Most likely diagnosis given after review of the tests above:: UTI Admission Indicated Admission indicated?: not indicated Admission Request Was there a request for admission?: No Disposition Plan Disposition Plan: Discharge Discharge Attestation Discharge Attestation: The patient and all family members were given an opportunity to ask questions and understood the discharge instructions. Discharge instructions specifically effects, indications for sooner follow up or return to the emergency department, and the expected course of current diagnosis. Patient condition: Stable Discharge Plan Plan Patient Disposition: HOME (Self Care) Disposition Comment: Stable Prescriptions/Referrals Prescriptions/Med Rec: New acetaminophen 500 mg capsule 500 mg PO Q6H PRN (Reason: pain) Qty: 30 0RF cephalexin 500 mg capsule 500 mg PO BID 5 Days Qty: 10 0RF No Action nitroglycerin [Nitrostat] 0.4 MG tablet, sublingual 0.4 mg SL PRN Qty: 0 lisinopril-hydrochlorothiazide 20-12.5 mg Tablet 1 tab PO QDAY Jardiance 10 mg Tablet 5 mg PO QAM gabapentin 300 mg Capsule 300 mg PO BID metformin 750 mg tablet extended release 24 hr 750 mg PO QDAY Patient Comments: TAKE 1 TABLET BY MOUTH DAILY IN THE MORNING venlafaxine 75 mg Tablet 75 mg PO QDAY lactulose 20 gram packet 20 g PO BID Qty: 30 1RF sucralfate 100 mg/mL suspension 10 ml PO TID Qty: 300 0RF Rx Instructions: swish in mouth and swallow; use after food/drink atorvastatin 80 mg tablet 80 mg PO HS Patient Comments: TAKE 1 TABLET BY MOUTH EVERY DAY isosorbide mononitrate 30 mg tablet extended release 24 hr 30 mg PO QDAY amlodipine 2.5 mg tablet 2.5 mg PO HS Patient Comments: TAKE 1 TABLET BY MOUTH EVERY DAY clopidogrel 75 mg tablet 75 mg PO QDAY Patient Comments: TAKE 1 TABLET BY MOUTH EVERY DAY FOR HEART AND BRAIN CIRCULATION metoprolol succinate 100 mg tablet extended release 24 hr 100 mg PO QDAY clonazepam 0.5 mg tablet 0.5 mg PO BID PRN (Reason: Anxiety) Hold Instructions: Resume on 07/08/24. May resume tomorrow due to sedation that was given today. Patient Comments: TAKE 1 TABLET TWICE A DAY BY ORAL ROUTE NEEDED FOR 7 DAYS, FOR ANXXIETY. aspirin 81 mg Tablet,Delayed Release (Dr/Ec) 81 mg PO QDAY dicyclomine 10 mg capsule 10 mg PO QDAY Patient Comments: TAKE 1 CAPSULE BY MOUTH TWICE A DAY fentanyl 12 mcg/hr patch 72 hour See Rx Instructions .ROUTE .COMPLEX MDD one patch every 3 days Qty: 5 0RF Rx Instructions: 1 patch to skin topically every 72 hours naloxone [Narcan] 4 mg/actuation spray,non-aerosol 1 spray intranasal Q2M Qty: 2 0RF Rx Instructions: spray 1 dose into ONE nostril; alternate nostrils w each dose until help arrives tramadol 50 mg tablet 50 mg PO TID PRN (Reason: pain) Qty: 20 0RF Referrals: Nadeen Sewell FNP [Primary Care Provider] - In 1 week Problem List Clinical Impression: Acute UTI Patient/Caregiver Discharge Instructions Discharge Activity: activity as tolerated Education Materials: ED CYSTITIS Female Adult Additional Instructions: Drink plenty of fluids stay hydrated. Take antibiotics as prescribed. Follow-up with primary care provider in 2 to 3 days. Return to emergency department for any worsening symptoms or as needed. Print Language: [place] Stand Alone Forms: Ceci Award Info., Patient Portal Info Letter LUISA/BOXING INSTRUCTOR Supervising Physician LUISA/BOXING INSTRUCTOR Supervising Physician: Dr. Mercer
[2024-12-03] MEDS: traMADol HCL 50 MG TABLET PO (02:04)
== END 2024-12-03 02:09 | disposition home or self-care (01) ==
PROVIDERS: Emergency Provider Emergency Medicine; PCP Nurse Practitioner Family
DX: N39.0 Urinary tract infection, site not specified (principal)
CPT/HCPCS: 36415; 80053; 80307; 81001; 83690; 85025; 87086; 96372; 99283; J1885; A9270

== ENCOUNTER → 2024-12-04 | Outpatient (CLI) | payer MEDICARE, BC, SELFPAY ==
--- NOTE | 2024-12-04 16:01 | XR_ITS ---
Examination: Shoulder,right, 3 views Technique: Shoulder AP internal rotation, AP external rotation, Y view shoulder, 3 views Exam date and time :December 04, 2024 1630 hours INDICATIONS: Right shoulder pain beginning 2 weeks ago FINDINGS: Moderate osteopenia Moderate narrowing glenohumeral joint No shoulder fracture or dislocation No AC joint separation IMPRESSION: Moderate narrowing glenohumeral joint
== END | disposition home or self-care (01) ==
PROVIDERS: Referring Provider Nurse Practitioner Family; Visit Provider Nurse Practitioner Family
DX: M25.811 Other specified joint disorders, right shoulder (principal)
CPT/HCPCS: 73030

== ENCOUNTER → 2024-12-30 | Outpatient (CLI) | payer MEDICARE, BC, SELFPAY ==
[2024-12-30 12:54] LABS: Basophils % (Auto) 0 % (0-2.5); Eosinophils # (Auto) 0.1 Thou/mm3 (0.0-0.5); Eosinophils % (Auto) 2 % (0-10); Hematocrit 38.3 % (36.0-46.0); Hemoglobin 12.9 g/dL (12.0-16.0); Immature Granulocytes % (Auto) 0 % (0-0); Immature Granulocytes Auto 0.01 Thou/mm3 (0.00-0.00); Lymphocytes # (Auto) 1.9 Thou/mm3 (1.0-4.8); Lymphocytes % (Auto) 31 % (10-50); Mean Corpuscular HGB Conc 33.7 g/dl (31.0-37.0); Mean Corpuscular Hemoglobin 28.7 pg (25.0-35.0); Mean Corpuscular Volume 85 fL (80-100); Monocytes # (Auto) 0.6 Thou/mm3 (0.0-0.8); Monocytes % (Auto) 9 % (0-12); Neutrophils # (Auto) 3.7 Thou/mm3 (1.8-7.7); Neutrophils % (Auto) 59 % (37-80); Nucleated Red Blood Cell % 0 /100 WBC (0); Platelet Count 290 Thou/mm3 (140-440); RDW Standard Deviation 40.4 fL (36.4-46.3); White Blood Count 6.3 Thou/mm3 (3.6-11.0)
[2024-12-30 13:06] LABS: Glucose Estimated Average 171 mg/dL (80-131); Hemoglobin A1C 7.6 % Hgb (4.8-6.0)
[2024-12-30 13:25] LABS: Alanine Aminotransferase 17 U/L (10-49); Albumin, Serum 4.1 gm/dL (3.4-4.8); Alkaline Phosphatase 98 U/L (46-116); Anion Gap 8 (7-16); Aspartate Amino Transferase 12 U/L (0-34); BUN/Creatinine Ratio 28 Ratio (12-20); Bilirubin,Direct 0.1 mg/dL (0.0-0.3); Bilirubin,Total 0.4 mg/dL (0.3-1.2); Blood Urea Nitrogen 17 mg/dL (9-23); Calcium 9.2 mg/dL (8.3-10.6); Carbon Dioxide 28.4 mMol/L (20.0-31.0); Cardiac Risk Estimate 2.8 RATIO (3.7-5.6); Chloride 104 mMol/L (98-107); Cholesterol 119 mg/dL (132-200); Creatinine (Component) 0.6 mg/dL (0.6-1.3); Glucose 166 mg/dL (74-106); HDL Cholesterol 42 mg/dL (40-60); LDL Cholesterol,Calculated 48 mg/dL (0-130); Osmolality,Calculated 284 (275-295); Potassium 3.4 mMol/L (3.4-5.1); Sodium 140 mMol/L (136-145); Total Protein 6.5 gm/dL (5.7-8.2); Triglycerides 143 mg/dL (30-150); eGFR > 60 See Note
[2024-12-30 13:44] LABS: Free T4 (Free Thyroxine) 1.32 ng/dL (0.89-1.76); Thyroid Stimulating Hormone 1.65 uIU/mL (0.55-4.78)
== END | disposition home or self-care (01) ==
LOC: COPL 11:49
PROVIDERS: PCP Family Medicine; Referring Provider Internal Medicine Cardiovascular Disease; Visit Provider Internal Medicine Cardiovascular Disease
DX: I10 Essential (primary) hypertension (principal); E78.2 Mixed hyperlipidemia; E11.65 Type 2 diabetes mellitus with hyperglycemia; I25.118 Atherosclerotic heart disease of native coronary artery with other forms of angina pectoris
CPT/HCPCS: 36415; 80048; 80061; 80076; 83036; 84439; 84443; 85025

== ENCOUNTER → 2025-01-28 | Outpatient (CLI) | payer MEDICARE, BC, SELFPAY ==
--- NOTE | 2025-01-28 16:56 | XR_ITS ---
Examination: Abdomen AP single view Technique: AP portable supine abdomen, single view Exam date and time: January 28, 2025 1709 hours INDICATIONS: Abdominal pain beginning 2 weeks ago. FINDINGS: Moderate air and stool throughout the colon No obstruction No free air Transpedicular lumbar fusion at the lower 3 lumbar levels Partial-thickness localization aorto iliac stent Surgical clips upper right abdomen IMPRESSION: Nonobstructive bowel gas pattern
== END | disposition home or self-care (01) ==
PROVIDERS: PCP Nurse Practitioner Family; Referring Provider Specialist; Visit Provider Specialist
DX: R10.9 Unspecified abdominal pain (principal)
CPT/HCPCS: 74018

== ENCOUNTER 2025-01-29 08:48 | Inpatient (IN) | payer MEDICARE, BC, SELFPAY ==
[2025-01-29] VITALS (11 sets, daily range): BP systolic 108–166; BP diastolic 56–85; PULSE 83–93; RESP 15–19; TEMP 36.2–37.2; O2SAT 95–99; BMI 29.2
--- NOTE | 2025-01-29 09:44 | XR_ITS ---
Examination: AP chest single view TECHNIQUE: AP portable semiupright chest single view Exam date and time: January 30, 2020 5:10 AM INDICATIONS: Hyperglycemia today. FINDINGS: Normal heart size Minor subsegmental atelectasis left base Prominent osteopenia Coronary artery calcification IMPRESSION: Minor subsegmental atelectasis left base
[2025-01-29 10:49] LABS: Lactate (Lactic Acid) 1.6 mMol/L (0.4-2.0)
[2025-01-29 10:50] LABS: Base Excess, Venous 2 (-3-3); O2 Saturation, Venous 74 % (96-97); PCO2, Venous 37 mmHg (36-56); PO2, Venous 39 mmHg (15-58); pH, Venous 7.45 (7.33-7.66)
[2025-01-29 10:55] LABS: Basophils % (Auto) 0 % (0-2.5); Eosinophils # (Auto) 0.1 Thou/mm3 (0.0-0.5); Eosinophils % (Auto) 0 % (0-10); Hematocrit 32.1 % (36.0-46.0); Hemoglobin 10.6 g/dL (12.0-16.0); Immature Granulocytes % (Auto) 1 % (0-0); Immature Granulocytes Auto 0.12 Thou/mm3 (0.00-0.00); Lymphocytes # (Auto) 1.4 Thou/mm3 (1.0-4.8); Lymphocytes % (Auto) 7 % (10-50); Mean Corpuscular Hemoglobin 28.6 pg (25.0-35.0); Mean Corpuscular Volume 87 fL (80-100); Monocytes # (Auto) 0.8 Thou/mm3 (0.0-0.8); Monocytes % (Auto) 4 % (0-12); Neutrophils # (Auto) 17.9 Thou/mm3 (1.8-7.7); Neutrophils % (Auto) 88 % (37-80); Nucleated Red Blood Cell % 0 /100 WBC (0); RDW Standard Deviation 42.5 fL (36.4-46.3); Red Blood Count 3.71 Miln/mm3 (4.00-5.20); White Blood Count 20.3 Thou/mm3 (3.6-11.0)
[2025-01-29] MEDS: SODIUM CHLORIDE 0.9% 1000 ML 2,000 ML IV (10:55)
[2025-01-29 11:05] LABS: Beta Hydroxybutyrate 0.1 mmol/L (<0.6)
--- NOTE | 2025-01-29 11:35 | PD.EDGIBLD ---
ED GI Bleed RME/HPI General Chief complaint: GI Bleed Stated complaint: HEMORRHAGE Time Seen by Provider: 01/29/25 09:43 Arrival date/time: 01/29/25 08:48 RME / HPI RME / HPI Narrative: Patient is a 64-year-old female comes in by EMS reporting that she had bleeding in her rectum since 3 AM this morning with lower abdominal pain. She has never had a GI bleed prior to this. She does state that she was just admitted to the hospital in [place] on January 18 was in the ICU diabetic coma was not on the ventilator and then got out of the hospital 5 days later. She says she saw Dr. Juárez yesterday who is working her up for her chronic abdominal pain has been going on since that admission to the hospital in [place]. Related Data Home Medications ?Medication ?Instructions ?Recorded ?Confirmed nitroglycerin 0.4 mg sublingual 0.4 mg SL PRN #0 tabs 05/03/16 10/19/24 tablet (Nitrostat) amlodipine 2.5 mg tablet 2.5 mg PO HS 09/10/23 10/19/24 atorvastatin 80 mg tablet 80 mg PO HS 09/10/23 10/19/24 clopidogrel 75 mg tablet 75 mg PO QDAY 09/10/23 10/19/24 isosorbide mononitrate 30 mg 30 mg PO QDAY 09/10/23 10/19/24 tablet,extended release 24 hr aspirin 81 mg tablet,delayed 81 mg PO QDAY 07/07/24 10/19/24 release clonazepam 0.5 mg tablet 0.5 mg PO BID PRN Anxiety 07/07/24 10/19/24 dicyclomine 10 mg capsule 10 mg PO QDAY 07/07/24 10/19/24 metoprolol succinate 100 mg 100 mg PO QDAY 07/07/24 10/19/24 tablet,extended release 24 hr empagliflozin 10 mg tablet 5 mg PO QAM 10/19/24 10/19/24 (Jardiance) gabapentin 300 mg capsule 300 mg PO BID 10/19/24 10/19/24 lisinopril 20 1 tab PO QDAY 10/19/24 10/19/24 mg-hydrochlorothiazide 12.5 mg tablet metformin 750 mg tablet,extended 750 mg PO QDAY 11/24/24 11/24/24 release 24 hr venlafaxine 75 mg tablet 75 mg PO QDAY 10/19/24 10/19/24 Previous Rx's ?Medication ?Instructions ?Recorded lactulose 20 gram oral packet 20 g PO BID #30 ea 10/22/24 fentanyl 12 mcg/hr transdermal See Rx Instructions .Route 10/23/24 patch .COMPLEX #5 ea naloxone 4 mg/actuation nasal 1 spray intranasal Q2M #2 ea 10/23/24 spray (Narcan) tramadol 50 mg tablet 50 mg PO TID PRN pain #20 tabs 10/24/24 sucralfate 100 mg/mL oral 10 ml PO TID #300 mL 10/26/24 suspension acetaminophen 500 mg capsule 500 mg PO Q6H PRN pain #30 caps 12/03/24 Allergies Allergy/AdvReac Type Severity Reaction Status Date / Time codeine Allergy Severe HIVES Verified 11/15/24 20:07 hydrocodone Allergy Severe RASH AND Verified 11/15/24 20:07 SWELLING Iodinated Contrast Media Allergy Severe Hives Verified 11/15/24 20:07 Review of Systems Review of Systems Narrative Review of Systems: Review of Systems: Constitutional: DENIES: Fevers,; Eyes: DENIES: Loss of vision, Head/Ear/Nose: DENIES: Loss of hearing. Throat: Denies dysphagia. Cardiovascular: Denies chest pain, Dyspnea or syncope. Respiratory: DENIES: Shortness of breath, Gastrointestinal: see hpi, +pain, + Rectal bleeding Genitourinary: DENIES: Dysuria (painful or difficult urination),; Musculoskeletal: DENIES: Arthralgia (pain in a joint),; Skin: DENIES: Rash,; Neurological: DENIES: loss of function or movement,; Psychiatric: DENIES: recent major life stressor, emotional problem, illicit drug use or abuse,; Endocrinology: DENIES: Weight change,; Hematologic/Lymphatic: DENIES: Abnormal bruising. Allergic/Immunologic: DENIES: Urticaria (hives), Past Medical History Past Medical History NEUROLOGIC: Positive Neurological Disorders, Cerebrovascular Accident and Transient Ischemic Attacks (TIA) CARDIAC: Positive Cardiac Disorders, Myocardial Infarction, Coronary Artery Disease, Hypercholesterolemia and Hypertension GASTROINTESTINAL: Positive Gastrointestinal Disorders, Diverticulosis and Gastroesophageal Reflux Disease REPRODUCTIVE: Positive Previous Pregnancies MUSCULOSKELETAL: Positive Musculoskeletal Disorders, Arthritis and Carpal Tunnel Syndrome ENDOCRINE: Positive Endocrine Disorders, Diabetes Mellitus Type 2 and Hyperthyroidism PSYCHO/SOCIAL: Positive Anxiety OTHER HISTORY: Positive Falls and Chicken Pox Family History FAMILY HISTORY: Positive Family Cancer Surgical History SURGICAL: Positive Cardiac Surgery, Coronary Stent, Tonsillectomy, Tubal Ligation and Section Social History SMOKING STATUS: Former smoker SECOND HAND EXPOSURE: Yes SUBSTANCE USE: does not use ED Exam Narrative Physical exam: Physical Exam: General: The vital signs were reviewed. The patient is non-toxic, in no apparent distress and appears healthy with a patent airway, no respiratory distress and has no apparent circulatory problems. Head & Scalp: Normocephalic, atraumatic. Face: Appears normal and is without lesions, deformity. Ears: Left external pinna appears normal. Right external pinna appears normal. Eyes: The sclera is anicteric. No obvious photophobia. The Left and Right Orbit/Lid/Conjunctiva appears normal without swelling, discoloration or injection. Nose: The nose is without deformity, discharge or tenderness; Throat: Appears normal. The mucous membranes are pink and moist without exudates, redness or mass seen. The tongue appears normal. Neck: The neck is supple and no apparent mass or adenopathy. Chest: The chest wall is normal in size and symmetry and has no chest wall tenderness or crepitus. The patient displays normal ventilator effort without retractions, accessory muscle use and has adequate air movement bilaterally with no wheezes and no rales. Cardiovascular: Regular rate and rhythm; No murmurs, rubs, or gallops; Gastrointestinal: The abdomen appears normal. No obvious hernias or mass. The abdomen diffuse pain seems a little distended, , no guarding and no rebound tenderness. Bowel sounds are present and normal sounding. No CVA tenderness. Genitourinary: Rectal he has blood staining on it rectal exam shows hematochezia on the fingertip. It is obviously bloody. There is no mass felt. Back/Spine: Normal inspection no obvious tenderness. Extremities/Musculoskeletal/lymphatic: The bilateral upper and lower extremities are warm. There is no evidence of arterial insufficiency. There is no evidence of venous insufficiency/edema. The patient spontaneously moves bilateral upper and lower extremities with no pain and no limitation of movement. There is no apparent, injury or trauma. Skin: The skin is warm, dry and intact. No rashes. No petechia. No purpura. No abnormal bruising. The color is appropriate with no cyanosis. Mental status/Psychiatric: Mental status is appropriate for age. The patient has no apparent delusions, visual hallucinations, no apparent audible hallucinations. The patient has no apparent suicidal thoughts/ideation and no apparent homicidal thoughts/ideation. Neurological: The patient is awake, alert, interactive, cordial, cooperative and is oriented to name and situation. The patient follows commands and answers historical question with no impairment. There is no visual disturbance apparent. The pupils are equal and reactive bilaterally with normal eye movements and no diplopia The bilateral upper and lower extremities have normal strength, normal range of motion and normal functioning. The gait, station and balance were not tested due to acuity. Course Quality Measures none Orders Category Date Time Status CT Screening NOW Care 01/29/25 09:45 Active Miscellaneous Nursing Order NOW Care 01/29/25 11:47 Active Consult to Gastroenterology Stat Cons 01/29/25 14:[address] chest abdomen pelvis wo Stat Exams 01/29/25 13:13 Completed XR chest 1V portable Stat Exams 01/29/25 09:44 Completed Beta Hydroxybutyrate Stat Lab 01/29/25 10:34 Completed Blood Culture (Lab) Stat Lab 01/29/25 10:21 Received CBC Stat Lab 01/29/25 10:34 Completed CBC Stat Lab 01/29/25 14:38 Ordered Comprehensive Metabolic Panel Stat Lab 01/29/25 10:34 Completed HCG Qualitative,Urine Stat Lab 01/29/25 11:40 Completed Lactate (Lactic Acid) Stat Lab 01/29/25 10:34 Completed Lipase Stat Lab 01/29/25 10:34 Completed Troponin I Stat Lab 01/29/25 10:34 Completed Type and Screen Stat Lab 01/29/25 11:54 Completed UA, C/S IF [Urinalysis, C/S if Indicated] Stat Lab 01/29/25 12:26 Completed Urinalysis Stat Lab 01/29/25 11:40 Completed Urinalysis, C/S if Indicated Stat Lab 01/29/25 11:40 Completed Venous Blood Gas Stat Lab 01/29/25 10:34 Completed HYDROmorphone INJ [Dilaudid Inj] Med 01/29/25 14:35 Discontinued 1 mg IVP X1 ONE Morphine Inj Med 01/29/25 11:29 Discontinued 4 mg IVP X1 ONE Ondansetron Inj [Zofran Inj] Med 01/29/25 09:43 Discontinued 4 mg IV X1 ONE Pantoprazole Inj [Protonix Inj] Med 01/29/25 14:35 Discontinued 40 mg IVP X1 ONE Piper/Tazo Inj [Zosyn Inj] 3.375 gm Med 01/29/25 11:46 Discontinued SODIUM CHLORIDE 0.9% (Popper) [Ns 0.9% (P)] 50 ml IV X1 Sodium Chloride 0.9% 1000 ml [Ns] 1,000 ml Med 01/29/25 09:45 Active IV 200 mls/hr Sodium Chloride 0.9% 1000 ml [Ns] 2,000 ml Med 01/29/25 09:43 Discontinued IV 1,000 mls/hr Vital Signs Vital signs: Vital Signs Temperature 97.9 F 01/29/25 09:20 Pulse Rate 93 01/29/25 09:20 Respiratory Rate 16 01/29/25 09:20 Blood Pressure 108/70 01/29/25 09:20 Pulse Oximetry (%) 96 01/29/25 09:20 Oxygen Delivery Method Room Air 01/29/25 09:20 Pulse ox is 96% on room air which is adequate. GI Bleed MDM Narrative MDM Narrative:: Patient is 64-year-old who comes to the emergency department complaining of severe abdominal pain but more importantly having bloody stools that started this morning early and have continued till 7 AM. She states she is having severe abdominal pain though that this has been going on for couple weeks since she was admitted to the ICU at the hospital in [facility] where she was in DKA and evidently was on a ventilator and was critically ill on initial examination she has exquisite pain so much so that I presume she might even have some type of surgical abdomen and 1 had started Zosyn and initiated a medical workup. Because she has allergies to contrast dye we did a noncontrast scan of her abdomen which came back negative for any acute process other than questionable bilateral lower lobe pneumonia. Portable chest x-ray does not reveal any consolidating infiltrates that are clearly visualized and a questionable left lower lobe atelectasis.. Her white count came back at 20.3 thousand hemoglobin is 10.6 platelet count is elevated at 582. Venous blood gas pH is 7.45 pCO2 of 37 sodium 139 potassium 4 2 Cardide 106 CO2 24.8 BUN 16 creatinine 0.5 lactic acid came back at 1.6. Total bilirubin and transaminases within normal limits troponin was negative. Lipase came back negative catheter urine reveals hCG was negative CT of the chest abdomen pelvis reveals a 6 mm pleural-based pulmonary nodule of uncertain significance with opacity in both lungs there is also bilateral subsegmental atelectasis presumed because of her abdominal pain there is lots of inflammation of the stomach reported. There is trace fluid in the abdomen. The appendix is normal. There is no diverticulitis. And no concerns for colitis reported. She still complained of abdominal pain and I have no real source for this. She states she is having cramps so I will give her 1 more dose of Dilaudid and I suspect that she has some chronic pain issues. She does have tramadol and goes with a [facility]. I called Dr. Juárez her steel plate printer and he will come evaluate this patient make a decision about scoping. Spoke with the hospitalist Dr. Michaud the resident and and they will admit the patient to sort out further. Patient data External records reviewed:: [facility] previous records (I reviewed ED visit on 12/03/24) and EMS form Clinical information provided by:: patient and EMS Social determinants that could affect healthcare access:: none Patient has the following chronic illnesses:: Gastritis, diabetes, CVA, CAD, hyperlipidemia How is presenting disease/condition affected by chronic disease/condition?: exacerbated by Evaluation data The following diagnostics were reviewed and interpreted by me:: lab results and radiology exam(s) Lab and/or radiology exams considered but not ordered:: none Interpretation Summary: Ordering Physician: Forest Madera MD Date of Service: 01/29/25 Procedure(s): XR chest 1V portable Accession Number(s): [id number] cc: Nadeen Sewell; Forest Madera MD; Andrew Mathews MD~ Examination: AP chest single view TECHNIQUE: AP portable semiupright chest single view Exam date and time: January 30, 2020 5:10 AM INDICATIONS: Hyperglycemia today. FINDINGS: Normal heart size Minor subsegmental atelectasis left base Prominent osteopenia Coronary artery calcification IMPRESSION: Minor subsegmental atelectasis left base Dictated By: Andrew Mathews MD Signed By: <Electronically signed by Andrew Mathews MD in OV> 01/29/25 1114 Ordering Physician: Forest Madera MD Date of Service: 01/29/25 Procedure(s): CT chest abdomen pelvis wo Accession Number(s): [id number] cc: Nadeen Sewell; Forest Madera MD; Andrew Mathews MD~ Examination: CT chest, without intravenous contrast. CT abdomen, without intravenous contrast. CT pelvis, without intravenous contrast. 2-D sagittal and coronal reconstructions. 3-D reconstructions. Date and time of exam:January 29, 2025 at 1318 hours Comparison October 18, 2024 INDICATIONS: Onset rectal bleeding beginning this morning CTDI vol (mgy) 7.26 DLP (MGycm)196 Technique: Multiple CT images, 3.0 mm slice thickness, obtained chest, abdomen, pelvis, with the high-resolution 64 slice scanner.. Sagittal and coronal 2-D reconstructions are obtained. 3-D reconstructions Low dose protocols were performed. One or more of the following dose reduction techniques were used; automated exposure control, adjustment of the mA and/or KV according to patient size, use of iterative reconstruction technique. Findings: Small left thyroid calcifications Thoracic aortic calcification no aneurysmal dilatation Pulmonary artery segments are not enlarged No paratracheal tracheobronchial or bronchopulmonary adenopathy 6 mm pleural-based pulmonary nodule right lower lobe image 150 Opacity both lung bases consistent with pneumonia Bilateral subsegmental atelectasis No liver or splenic lesions Absent gallbladder Significant inflammation, gastric, for instance axial image 132 Common bile duct 10 mm no stones No pancreatic mass Numerous 1 to 3 mm bilateral renal calculi Heavy abdominal aortic calcification Normal appendix Trace free fluid in the abdomen Atrophic uterus No adnexal mass. Urinary bladder intact Transpedicular lumbar fusion L3-S1, severe osteopenia Moderate narrowing hip joints IMPRESSION: Bibasilar pneumonia 6 mm pleural-based pulmonary nodule right lower lobe, recommend 6 month follow-up CT chest without contrast Severe gastritis pattern Bilateral tiny nonobstructing renal calculi Normal appendix Scattered colonic diverticulosis, no diverticulitis No nonspecific colitis or proctitis pattern but clinical correlation advised Dictated By: Andrew Mathews MD Signed By: <Electronically signed by Andrew Mathews MD in OV> 01/29/25 2515 Medications / Prescriptions Medications or Prescriptions considered but not ordered:: none Medication administrations:: Medication Administration History Sodium Chloride (Ns) 1,000 mls @ 200 mls/hr IV .Q5H DENISSE Stop: 02/28/25 09:44 Last Admin: 01/29/25 14:31 Dose: 200 mls/hr Documented By: VG Discontinued Medications Hydromorphone HCl (Hydromorphone Inj 2 Mg/Ml Vial) 1 mg IVP X1 ONE Stop: 01/29/25 14:36 Sodium Chloride (Ns) 2,000 mls @ 1,000 mls/hr IV .Q2H ONE Stop: 01/29/25 11:42 Last Infusion: 01/29/25 14:24 Dose: Infused Documented By: Admin: 01/29/25 10:55 Dose: 1,000 mls/hr Documented By: VG Piperacillin Sod/Tazobactam (Sod 3.375 gm/ Sodium Chloride) 50 mls @ 100 mls/hr IV X1 ONE Stop: 01/29/25 12:15 Last Admin: 01/29/25 14:31 Dose: 100 mls/hr Documented By: BELÉN Morphine Sulfate (Morphine Sulf Inj 10 Mg/Ml Vial) 4 mg IVP X1 ONE Stop: 01/29/25 11:30 Last Admin: 01/29/25 12:06 Dose: 4 mg Documented By: LF Ondansetron HCl (Ondansetron Inj 2 Mg/Ml Inj 2 Ml) 4 mg IV X1 ONE Stop: 01/29/25 09:44 Last Admin: 01/29/25 12:05 Dose: 4 mg Documented By: LF Pantoprazole Sodium (Pantoprazole Inj 40 Mg Vial) 40 mg IVP X1 ONE Stop: 01/29/25 14:36 see above Consultations Consultation(s) initiated? (list below): Yes Consultation #1 (Physician, Specialty, Details): I discussed case with GI Dr. Juárez, he agrees to consult. Time: 14:45 Diagnosis GI bleed differential diagnosis: esophageal varices, gastritis, Upper gastrointestinal hemorrhage, Lower gastrointestinal hemorrhage, hematochezia and melena Most likely diagnosis given after review of the tests above:: hematochezia diabetes chronic pain abdominal pain bilateral pneumonia Admission Indicated Admission indicated?: indicated Admission Request Was there a request for admission?: Yes Admission Attestation Admission request attestation: Discussed case with [] from Hospitalist service regarding admission. Discussed patients ED course, exam findings, labs, and radiology results. The Hospitalist [agrees,declines] to accept the patient for admission. Disposition Plan Disposition Plan: Admit Discharge Plan Plan Patient Disposition: Admit Acute Care w/in Hospital Disposition Comment: Hospitalist admit Dr. Juárez to consult Prescriptions/Referrals Prescriptions/Med Rec: No Action nitroglycerin [Nitrostat] 0.4 MG tablet, sublingual 0.4 mg SL PRN Qty: 0 lisinopril-hydrochlorothiazide 20-12.5 mg Tablet 1 tab PO QDAY Jardiance 10 mg Tablet 5 mg PO QAM gabapentin 300 mg Capsule 300 mg PO BID metformin 750 mg tablet extended release 24 hr 750 mg PO QDAY Patient Comments: TAKE 1 TABLET BY MOUTH DAILY IN THE MORNING venlafaxine 75 mg Tablet 75 mg PO QDAY lactulose 20 gram packet 20 g PO BID Qty: 30 1RF sucralfate 100 mg/mL suspension 10 ml PO TID Qty: 300 0RF Rx Instructions: swish in mouth and swallow; use after food/drink acetaminophen 500 mg capsule 500 mg PO Q6H PRN (Reason: pain) Qty: 30 0RF atorvastatin 80 mg tablet 80 mg PO HS Patient Comments: TAKE 1 TABLET BY MOUTH EVERY DAY isosorbide mononitrate 30 mg tablet extended release 24 hr 30 mg PO QDAY amlodipine 2.5 mg tablet 2.5 mg PO HS Patient Comments: TAKE 1 TABLET BY MOUTH EVERY DAY clopidogrel 75 mg tablet 75 mg PO QDAY Patient Comments: TAKE 1 TABLET BY MOUTH EVERY DAY FOR HEART AND BRAIN CIRCULATION metoprolol succinate 100 mg tablet extended release 24 hr 100 mg PO QDAY clonazepam 0.5 mg tablet 0.5 mg PO BID PRN (Reason: Anxiety) Patient Comments: TAKE 1 TABLET TWICE A DAY BY ORAL ROUTE NEEDED FOR 7 DAYS, FOR ANXXIETY. aspirin 81 mg Tablet,Delayed Release (Dr/Ec) 81 mg PO QDAY dicyclomine 10 mg capsule 10 mg PO QDAY Patient Comments: TAKE 1 CAPSULE BY MOUTH TWICE A DAY fentanyl 12 mcg/hr patch 72 hour See Rx Instructions .ROUTE .COMPLEX MDD one patch every 3 days Qty: 5 0RF Rx Instructions: 1 patch to skin topically every 72 hours naloxone [Narcan] 4 mg/actuation spray,non-aerosol 1 spray intranasal Q2M Qty: 2 0RF Rx Instructions: spray 1 dose into ONE nostril; alternate nostrils w each dose until help arrives tramadol 50 mg tablet 50 mg PO TID PRN (Reason: pain) Qty: 20 0RF Referrals: Nadeen Sewell FNP [Primary Care Provider] - In 1 week Problem List Clinical Impression: Hematochezia, Diabetes, Chronic pain, Abdominal pain, Bilateral pneumonia Patient/Caregiver Discharge Instructions Print Language: Cypriot Stand Alone Forms: Ceci Award Info., Patient Portal Info Letter
[2025-01-29 11:38] LABS: Platelet Count 582 Thou/mm3 (140-440)
[2025-01-29 11:47] LABS: Alanine Aminotransferase 47 U/L (10-49); Albumin, Serum 4.3 gm/dL (3.4-4.8); Albumin/Globulin Ratio 1.5 (1.2-2.2); Alkaline Phosphatase 110 U/L (46-116); Anion Gap 8 (7-16); Aspartate Amino Transferase 15 U/L (0-34); BUN/Creatinine Ratio 32 Ratio (12-20); Bilirubin,Total 0.4 mg/dL (0.3-1.2); Blood Urea Nitrogen 16 mg/dL (9-23); Calcium 9.2 mg/dL (8.3-10.6); Calcium (Corrected) 9.2 mg/dL (8.5-10.1); Carbon Dioxide 24.8 mMol/L (20.0-31.0); Chloride 106 mMol/L (98-107); Creatinine (Component) 0.5 mg/dL (0.6-1.3); Estimated Creatinine Clearance 104.6 mL/min (>60); Globulin 2.9 gm/dL (2.3-3.5); Glucose 147 mg/dL (74-106); Lipase 46 U/L (12-53); Osmolality,Calculated 281 (275-295); Potassium 4.2 mMol/L (3.4-5.1); Sodium 139 mMol/L (136-145); Total Protein 7.2 gm/dL (5.7-8.2); Troponin I < 0.020 ng/mL (0.0-0.045); eGFR > 60 See Note
[2025-01-29 11:55] LABS: Collection Type, Urine Catheter
[2025-01-29 12:04] LABS: Bilirubin,Urine Negative (Negative); Blood,Urine 1+ (Negative); Clarity,Urine Clear (Clear/Hazy); Color,Urine Lt-Yellow (Lt Yel-Yel); Culture Indicated,Urine Not Indicated; Glucose, Urine Negative (Negative); Hyaline Casts,Urine < 1 /hpf (0-1); Ketones,Urine Negative (Negative); Leukocyte Esterase,Urine Negative (Negative); Nitrite,Urine Negative (Negative); PH,Urine 7.5 (5.0-7.0); Protein,Urine Trace (Neg - Trace); RBC,Urine 1 /hpf (0-3); Specific Gravity,Urine 1.017 (1.001-1.035); Squamous Epithelial Cell,Urine 2 /hpf (0-5); Urobilinogen,Urine Negative mg/dL (0.0-1.0); WBC,Urine < 1 /hpf (0-5)
[2025-01-29] MEDS: ONDANSETRON INJ 2 MG/ML INJ 2 ML 4 MG IV (12:05)
[2025-01-29] MEDS: MORPHINE SULF INJ 10 MG/ML VIAL 4 MG IVP (12:06)
[2025-01-29 12:07] LABS: HCG Qualitative,Urine Negative
[2025-01-29 12:35] LABS: Collection Type, Urine Catheter
[2025-01-29 12:45] LABS: Bilirubin,Urine Negative (Negative); Blood,Urine Negative (Negative); Clarity,Urine Clear (Clear/Hazy); Color,Urine Colorless (Lt Yel-Yel); Culture Indicated,Urine Not Indicated; Glucose, Urine Negative (Negative); Ketones,Urine Negative (Negative); Leukocyte Esterase,Urine Negative (Negative); Nitrite,Urine Negative (Negative); PH,Urine 7.5 (5.0-7.0); Protein,Urine Negative (Neg - Trace); RBC,Urine < 1 /hpf (0-3); Specific Gravity,Urine 1.004 (1.001-1.035); Squamous Epithelial Cell,Urine < 1 /hpf (0-5); Urobilinogen,Urine Negative mg/dL (0.0-1.0); WBC,Urine < 1 /hpf (0-5)
--- NOTE | 2025-01-29 13:13 | XR_ITS ---
Examination: CT chest, without intravenous contrast. CT abdomen, without intravenous contrast. CT pelvis, without intravenous contrast. 2-D sagittal and coronal reconstructions. 3-D reconstructions. Date and time of exam:January 29, 2025 at 1318 hours Comparison October 18, 2024 INDICATIONS: Onset rectal bleeding beginning this morning CTDI vol (mgy) 7.26 DLP (MGycm)196 Technique: Multiple CT images, 3.0 mm slice thickness, obtained chest, abdomen, pelvis, with the high-resolution 64 slice scanner.. Sagittal and coronal 2-D reconstructions are obtained. 3-D reconstructions Low dose protocols were performed. One or more of the following dose reduction techniques were used; automated exposure control, adjustment of the mA and/or KV according to patient size, use of iterative reconstruction technique. Findings: Small left thyroid calcifications Thoracic aortic calcification no aneurysmal dilatation Pulmonary artery segments are not enlarged No paratracheal tracheobronchial or bronchopulmonary adenopathy 6 mm pleural-based pulmonary nodule right lower lobe image 150 Opacity both lung bases consistent with pneumonia Bilateral subsegmental atelectasis No liver or splenic lesions Absent gallbladder Significant inflammation, gastric, for instance axial image 132 Common bile duct 10 mm no stones No pancreatic mass Numerous 1 to 3 mm bilateral renal calculi Heavy abdominal aortic calcification Normal appendix Trace free fluid in the abdomen Atrophic uterus No adnexal mass. Urinary bladder intact Transpedicular lumbar fusion L3-S1, severe osteopenia Moderate narrowing hip joints IMPRESSION: Bibasilar pneumonia 6 mm pleural-based pulmonary nodule right lower lobe, recommend 6 month follow-up CT chest without contrast Severe gastritis pattern Bilateral tiny nonobstructing renal calculi Normal appendix Scattered colonic diverticulosis, no diverticulitis No nonspecific colitis or proctitis pattern but clinical correlation advised
[2025-01-29] MEDS: PIPER/TAZO INJ 3.375 GM in SODIUM CHLORIDE 0.9% (Popper) 50 ML IV (14:31)
[2025-01-29] MEDS: SODIUM CHLORIDE 0.9% 1000 ML 1,000 ML 200 ML IV (14:31)
[2025-01-29] MEDS: HYDROmorphone INJ 2 MG/ML VIAL 1 MG IVP (15:26)
[2025-01-29] MEDS: PANTOPRAZOLE INJ 40 MG VIAL IVP (15:27)
[2025-01-29 17:04] LABS: Basophils % (Auto) 0 % (0-2.5); Eosinophils % (Auto) 0 % (0-10); Hematocrit 25.4 % (36.0-46.0); Immature Granulocytes % (Auto) 1 % (0-0); Immature Granulocytes Auto 0.06 Thou/mm3 (0.00-0.00); Lymphocytes # (Auto) 2.3 Thou/mm3 (1.0-4.8); Lymphocytes % (Auto) 19 % (10-50); Mean Corpuscular HGB Conc 32.7 g/dl (31.0-37.0); Mean Corpuscular Hemoglobin 28.7 pg (25.0-35.0); Mean Corpuscular Volume 88 fL (80-100); Monocytes # (Auto) 0.7 Thou/mm3 (0.0-0.8); Monocytes % (Auto) 6 % (0-12); Neutrophils # (Auto) 9.3 Thou/mm3 (1.8-7.7); Neutrophils % (Auto) 75 % (37-80); Nucleated Red Blood Cell % 0 /100 WBC (0); Platelet Count 505 Thou/mm3 (140-440); RDW Standard Deviation 42.5 fL (36.4-46.3); Red Blood Count 2.89 Miln/mm3 (4.00-5.20); White Blood Count 12.4 Thou/mm3 (3.6-11.0)
[2025-01-29 17:37] LABS: Hemoglobin 8.3 g/dL (12.0-16.0)
[2025-01-29] MEDS: cefTRIAXone/D5w 2gm 2 GM/50 ML BAG IV (18:02)
[2025-01-29] MEDS: PANTOPRAZOLE INJ 40 MG VIAL IV (18:03)
--- NOTE | 2025-01-29 18:29 | ESHP_ITS ---
<Statement entered by Boy Meza MD - 01/29/25 19:30> This patient is a 64-year-old female with past medical history of CAD post multiple stents on Plavix, PAD, A-fib not on anticoagulation, hypertension, diabetes and esophageal stricture s/p dilation presented due to hematochezia. Patient reported that she had abdominal pain and had a bloody bowel movement around 3 AM in the morning. She had multiple bowel movements throughout the night. She ate at home and not had any food afterwards. Patient has been getting workup as outpatient with Dr. Juárez, GI specialist for chronic abdominal pain. Patient was admitted at [facility] for DKA and was intubated due to altered mental status and unable to protect airways and was discharged same month. Patient was taking azithromycin x 3 days. We we will admit the patient and start on Protonix twice daily, fluid resuscitation and consult GI specialist for further recommendations. Antibiotics, ceftriaxone and Flagyl was started due to elevated white count. Vitals were stable. Hemoglobin at 8.3. Chemistry panel was unremarkable. Kidney functions were stable. A1c came out 7.6. Lactic acid was unremarkable. Urinalysis was negative. U tox was negative. CT chest abdomen pelvis showed 6 mm pleural-based pulmonary nodule and bibasilar pneumonia with scattered colonic diverticulosis. Abdominal x-ray showed nonobstructive bowel gas pattern. Blood cultures are pending. Some of the home medications were reconciled. Will follow with stool analysis and C. difficile. All labs and orders were reviewed. I saw and examined the patient, and I agree with current management stated by Dr Gianluca MD,PGY1. Plan of care was discussed with the attending physician and resident physician. Disclaimer: Despite multiple revisions, due to the dictation software being used, the document bellow may not be free of grammatical errors including phonetic/typographic errors. However, this does not deter from our commitment to providing health care in the patient's best interest in mind. Dr. Susana MD, PGY 2 Documentation for date of: 01/29/25 HPI History of Present Illness History of present illness: Ariadna Albarran is a 64-year-old female with a past medical history of CAD s/p multiple stents, PAD, a-fib (not on AC), HTN, T2DM, and esophageal strictures s/p dilatation x2 who presented to the ED on 01/29 for hematochezia. at bedside who helped aid in providing history. Around 3:00 AM, patient woke up due to significant abdominal pain and had bloody bowel movement. Per , bowel content was around toilet bowl and on floor suggesting that patient was incontinent. Denies rectal pain during bowel movements but states that she has had abdominal pain since being released from an outside hospital for DKA and pneumonia requiring mechanical ventilation. However, patient has been having loose bowel movements for approximately one month and lately has been having 10- 12 BMs per day that are foul-smelling. Does not state she was on antibiotics prior to loose bowel movements. Of note, she did undergo a colonoscopy within the last year by Dr. Juárez without significant findings per patient. In ED, BP 108/70, HR 93, afebrile, saturating well on room air. WBC 20, Hgb 10.6, platelets 582, CMP within normal limits. CT C/A/P: Colonic diverticulosis (no diverticulitis), small bilateral nonobstructing renal calculi, severe gastritis, 6 mm pleural-based pulmonary nodule right lower lobe. 3 L NS, Zosyn x 1, 80 mg IV Protonix, morphine and hydromorphone. Admitted for further workup/management of lower GI bleed. PMHx: CAD, PAD, A-fib, hypertension, type 2 diabetes mellitus, esophageal strictures Medications: Amlodipine 2.5 mg p.o. at bedtime, aspirin 81 mg p.o. daily, atorvastatin 80 mg p.o. at bedtime, clonazepam 1 mg p.o. twice daily, clopidogrel 75 mg p.o. daily, dicyclomine 10 mg p.o. daily, gabapentin 300 mg p.o. twice daily, hydroxyzine 25 mg p.o. every morning, lisinopril- hydrochlorothiazide, metformin 750 mg p.o. daily, metoprolol succinate 100 mg p.o. daily, pantoprazole 40 mg p.o. daily, tramadol 50 mg p.o. 3 times daily as needed, venlafaxine 75 mg p.o. every afternoon SHx: Smoked 0.5 packs/day for 20 years, no significant alcohol use, no illicit drug use PSHx: Spinal fusion, cholecystectomy Review of Systems Review of Systems Systems Reviewed: All systems reviewed, normal except as documented Exam Vital Signs Temp Pulse Resp BP Pulse Ox O2 Del Method O2 Flow Rate 97.6 F 86 16 145/74 H 95 Room Air 8 01/29/25 13:44 01/29/25 13:44 01/29/25 13:44 01/29/25 13:44 01/29/25 13:44 01/29/25 13:44 01/29/25 11:05 Narrative Exam General: AOx3, no acute distress, able to speak full sentences HEENT: NC/AT, mucous membranes moist, bilateral sclera anicteric Cardiovascular: regular rate and rhythm, S1/S2 present, no murmurs appreciated Pulmonary: clear to auscultation bilaterally, no rales/rhonchi/wheezes Abdominal: Diffuse tenderness to palpation, soft, nondistended Musculoskeletal: normal ROM, no peripheral edema Skin: warm and dry, intact, no rashes Neuro: CN II-XII intact, no focal deficits Results: Labs 01/29/25 16:50 01/29/25 10:34 Labs: Short CBC 01/29/25 01/29/25 Range/Units 10:34 16:50 WBC 20.3 H 12.4 H D (3.6-11.0) Thou/mm3 Hgb 10.6 L 8.3 L D (12.0-16.0) g/dL Hct 32.1 L 25.4 L (36.0-46.0) % Plt Count 582 H D 505 H D (140-440) Thou/mm3 BMP 01/29/25 10:34 Sodium 139 Potassium 4.2 Chloride 106 Carbon Dioxide 24.8 BUN 16 Creatinine 0.5 L Glucose 147 H Calcium 9.2 Cardiac Enzymes 01/29/25 Range/Units 10:34 Troponin I < 0.020 (0.0-0.045) ng/mL Liver Function 01/29/25 Range/Units 10:34 Total Bilirubin 0.4 (0.3-1.2) mg/dL AST 15 (0-34) U/L ALT 47 (10-49) U/L Alkaline Phosphatase 110 (46-116) U/L Albumin 4.3 (3.4-4.8) gm/dL Urine 01/29/25 01/29/25 Range/Units 11:40 12:26 Urine Color Lt-Yellow Colorless A (Lt Yel-Yel) Urine Clarity Clear Clear (Clear/Hazy) Urine pH 7.5 H 7.5 H (5.0-7.0) Ur Specific [place] 1.017 1.004 (1.001-1.035) Urine Protein Trace Negative (Neg - Trace) Urine Glucose (UA) Negative Negative (Negative) ABG Interpretation ABG results: 01/29/25 10:34 VBG pH 7.45 VBG pCO2 37 VBG pO2 39 VBG Base Excess 2 Quality Measures Quality Measures none Advance care planning discussed with:: patient Medications Home Medications and Allergies Home Medications ?Medication ?Instructions ?Recorded ?Confirmed ?Type amlodipine 2.5 mg tablet 2.5 mg PO HS 09/10/23 History atorvastatin 80 mg tablet 80 mg PO HS 09/10/23 5 History clopidogrel 75 mg tablet 75 mg PO QDAY 09/10/2301/29 History isosorbide mononitrate 30 mg 30 mg PO QDAY 09/10/23 History tablet,extended release 24 hr aspirin 81 mg tablet,delayed 81 mg PO QDAY 07/07/24 History release dicyclomine 10 mg capsule 10 mg PO QDAY 07/07/2401/29 History metoprolol succinate 100 mg 100 mg PO QDAY 07/07/24 History tablet,extended release 24 hr gabapentin 300 mg capsule 300 mg PO BID 10/19/2401/29 History lisinopril 20 1 tab PO QDAY 10/19/2401/29 History mg-hydrochlorothiazide 12.5 mg tablet metformin 750 mg tablet,extended 750 mg PO QDAY 01/29/25 History release 24 hr venlafaxine 75 mg tablet 75 mg PO QPM 10/19/24 History clonazepam 1 mg tablet 1 mg PO BID 01/29/25 5 History clopidogrel 75 mg tablet (Plavix) 75 mg PO QDAY 01/29/25 History hydroxyzine HCl 25 mg tablet 25 mg PO QAM 01/29/2505/20 History pantoprazole 40 mg tablet,delayed 40 mg PO QDAY 01/29/25 History release Allergies Allergy/AdvReac Type Severity Reaction Status Date / Time codeine Allergy Severe HIVES Verified 11/15/24 20:07 hydrocodone Allergy Severe RASH AND Verified 11/15/24 20:07 SWELLING Iodinated Contrast Media Allergy Severe Hives Verified 11/15/24 20:07 Visit Medications Acetaminophen (Acetaminophen 325 Mg Tablet) 650 mg PO Q6H PRN PRN Reason: PAIN OR FEVER > 100.4 Stop: 02/28/25 16:24 Dextrose (Dextrose 50%-Water Inj 50 Ml Syringe) 25 ml IV Q15MIN PRN PRN Reason: BG 50-70 responsive npo pt Stop: 02/28/25 16:32 Dextrose (Dextrose 50%-Water Inj 50 Ml Syringe) 50 ml IV Q15MIN PRN PRN Reason: BG <50 OR BG <70 & pt unresponsive Stop: 02/28/25 16:32 Glucagon (Glucagon Inj 1 Mg Vial) 1 mg IM Q15MIN PRN PRN Reason: BG <70, and no IV access Lactated Ringer's (Lactated Ringers) 1,000 mls @ 75 mls/hr IV .[id number] [facility] Stop: 01/30/25 16:29 Ceftriaxone Sodium/Dextrose (Rocephin/D5w 2gm) 2 gm in 50 mls @ 100 mls/hr IV QDAY [facility] Stop: 02/05/25 17:31 Last Admin: 01/29/25 18:02 Dose: 100 mls/hr Metronidazole (Flagyl 500 Mg Iv) 500 mg in 100 mls @ 200 mls/hr IV Q8HR [facility] Stop: 02/05/25 17:32 Insulin Human Lispro (Insulin Lispro (Admelog) 1 Unit/0.01 Ml Unit) 0 unit SC Q6HR [facility]; Protocol Stop: 02/28/25 17:59 Last Admin: 01/29/25 18:01 Dose: Not Given Morphine Sulfate (Morphine Sulf Inj 10 Mg/Ml Vial) 1 mg IVP Q4HR PRN PRN Reason: PAIN SCALE 7-10 (Severe Ondansetron HCl (Ondansetron Inj 2 Mg/Ml Inj 2 Ml) 4 mg IV Q6H PRN; Protocol PRN Reason: NAUSEA OR VOMITING Stop: 02/28/25 16:24 Pantoprazole Sodium (Pantoprazole Inj 40 Mg Vial) 40 mg IVP BID [facility] Stop: 03/01/25 05:59 Discontinued Medications Hydromorphone HCl (Hydromorphone Inj 2 Mg/Ml Vial) 1 mg IVP X1 ONE Stop: 01/29/25 14:36 Last Admin: 01/29/25 15:26 Dose: 1 mg Sodium Chloride (Ns) 1,000 mls @ 200 mls/hr IV .Q5H DENISSE Stop: 02/28/25 09:44 Last Admin: 01/29/25 15:28 Dose: Not Given Sodium Chloride (Ns) 2,000 mls @ 1,000 mls/hr IV .Q2H ONE Stop: 01/29/25 11:42 Last Infusion: 01/29/25 14:24 Dose: Infused Piperacillin Sod/Tazobactam (Sod 3.375 gm/ Sodium Chloride) 50 mls @ 100 mls/hr IV X1 ONE Stop: 01/29/25 12:15 Last Infusion: 01/29/25 15:28 Dose: Infused Morphine Sulfate (Morphine Sulf Inj 10 Mg/Ml Vial) 4 mg IVP X1 ONE Stop: 01/29/25 11:30 Last Admin: 01/29/25 12:06 Dose: 4 mg Ondansetron HCl (Ondansetron Inj 2 Mg/Ml Inj 2 Ml) 4 mg IV X1 ONE Stop: 01/29/25 09:44 Last Admin: 01/29/25 12:05 Dose: 4 mg Pantoprazole Sodium (Pantoprazole Inj 40 Mg Vial) 40 mg IVP X1 ONE Stop: 01/29/25 14:36 Last Admin: 01/29/25 15:27 Dose: 40 mg Pantoprazole Sodium (Pantoprazole Inj 40 Mg Vial) 40 mg IVP QDAY DENISSE Stop: 03/01/25 08:59 Pantoprazole Sodium (Pantoprazole Inj 40 Mg Vial) 40 mg IVP BID DENISSE Stop: 03/01/25 08:59 Pantoprazole Sodium (Pantoprazole Inj 40 Mg Vial) 40 mg IV X1 ONE Stop: 01/29/25 17:26 Last Admin: 01/29/25 18:03 Dose: 40 mg Assessment & Plan Plan Ariadna Albarran is a 64-year-old female with a past medical history of CAD s/p multiple stents, PAD, a-fib (not on AC), HTN, T2DM, and esophageal strictures s/p dilatation x2 who presented to the ED on 01/29 for hematochezia and admitted for further workup/management of lower GI bleed. #Lower GI bleed #Hematochezia Presented after 1 episode of hematochezia. Noted to have abdominal pain for approximately 2 weeks and loose, nonbloody, foul-smelling bowel movements for 1 month. No antibiotic use prior to 1 month ago but does take PPI at home. Diffuse abdominal tenderness on exam. WBC 20, afebrile. Imaging showed gastritis and diverticulitis but no colitis pattern seen. On admission, hemoglobin 10.6 (baseline 12-13) and repeat showed hemoglobin of 8.3. ? GI consulted, appreciate recommendations ? N.p.o. except for medications ? 1 unit PRBC ordered and to be transfused when ready due to drop in hemoglobin from 10.6 to 8.3 ? Follow-up posttransfusion H&H ? LR at 75 mL/h ? Pantoprazole 40 mg IV twice daily ? Ceftriaxone 2 g IV daily (01/29-) ? Flagyl 500 mg IV every 8 hours (01/29-) ? Morphine 1 mg IV every 4 hours as needed for severe pain ? Zofran for nausea #CAD status post multiple stents #PAD (status post stents in bilateral femoral arteries, aorta, and ICA) Home aspirin 81 mg p.o. daily, atorvastatin 80 mg p.o. at bedtime, clopidogrel 75 mg p.o. daily ? Hold home p.o. 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 Dillard, yet. Additionally, we will hold all anticoagulation/antiplatelets given lower GI bleed. Home metoprolol succinate 100 mg p.o. daily #Hypertension Home amlodipine 2.5 mg p.o. at bedtime, lisinopril-HCTZ, metoprolol succinate 100 mg p.o. daily ? Hold home p.o. meds #Type 2 diabetes mellitus, [id number] A1c 12/2024 7.6%, on metformin 750 mg p.o. daily ? SSI every 6 hours #Thrombocytosis, likely reactive in setting of lower GI bleed ? Continue to monitor Hospital management: Disposition: lower GI bleed, GI consulted for possible colonoscopy Fluids: LR at 75 cc/h Diet: N.p.o. in anticipation of colonoscopy Lines: PIV DVT prophylaxis: SCDs given GI bleed GI prophylaxis: Pantoprazole 40 mg IV twice daily CODE STATUS: full code ----- Plan discussed with attending physician Dr. Salas and senior resident physician Dr. Susana Hough MD PGY-1 Internal Medicine Attending Provider Attestation/Addendum I have discussed and was present for the essential components of the history, physical examination, diagnosis, and treatment plan with the resident. I agree with the patient's care as documented by the resident and amended herein by me. Eldon Salas DO. Although this document has been carefully reviewed, there may still be some phonetic and other typographical errors. These errors are purely grammatical due to imperfections in the software program and should not be construed in any way to compromise the substance of the patient's medical care during this visit.
[2025-01-29] MEDS: metroNIDAZOLE/NS 500 MG IVPB 500 MG/100 ML BAG 200 MG IV ×2 (18:43→23:05)
[2025-01-29] MEDS: RINGERS LACTATED 1000 ML 1,000 ML 75 ML IV (19:27)
[2025-01-29] MEDS: MORPHINE SULF INJ 10 MG/ML VIAL IVP ×3 (19:42→23:51)
--- NOTE | 2025-01-29 21:37 | PD.IMCONS ---
HPI Data of Consult Requesting Physician: Cole Salas DO Primary Care Provider: DONAL Spain Consult Narrative Reason for consult: Hematochezia History of present illness: 64 years female evaluated at request of ER physician for episodes of hematochezia Hemoglobin hematocrit yesterday was 10.6 and over 32.1 and today it is 8.3 and 25.4 patient has had episodes of hematochezia CT scan of the abdomen pelvis without contrast showed nonspecific proctitis and colitis pattern bibasilar pneumonia and severe gastritis I was consulted Patient is a very complicated past medical history of getting admitted in [facility] 10 days ago requiring mechanical ventilation endotracheal intubation because of acute respiratory failure She is being evaluated at [facility] by Dr. Chaney for dysphagia cc:: cc: Cole Salas DO Review of Systems Review of Systems Systems Reviewed: All systems reviewed, normal except as documented Past Medical History Surgical History OTHER SURGICAL HX: Coronary artery status post PTCA cholecystectomy tonsillectomy and tubal ligation Diabetes mellitus type 1 Essential hypertension Meds Home Medications and Allergies Home Medications ?Medication ?Instructions ?Recorded ?Confirmed ?Type amlodipine 2.5 mg tablet 2.5 mg PO HS 09/10/23 01/29/25 History atorvastatin 80 mg tablet 80 mg PO HS 09/10/23 01/29/25 History clopidogrel 75 mg tablet 75 mg PO QDAY 09/10/23 01/29/25 History isosorbide mononitrate 30 mg 30 mg PO QDAY 09/10/23 01/29/25 History tablet,extended release 24 hr aspirin 81 mg tablet,delayed 81 mg PO QDAY 07/07/24 01/29/25 History release dicyclomine 10 mg capsule 10 mg PO QDAY 07/07/24 01/29/25 History metoprolol succinate 100 mg 100 mg PO QDAY 07/07/24 01/29/25 History tablet,extended release 24 hr gabapentin 300 mg capsule 300 mg PO BID 10/19/24 01/29/25 History lisinopril 20 1 tab PO QDAY 10/19/24 01/29/25 History mg-hydrochlorothiazide 12.5 mg tablet metformin 750 mg tablet,extended 750 mg PO QDAY 10/19/24 01/29/25 History release 24 hr venlafaxine 75 mg tablet 75 mg PO QPM 10/19/24 01/29/25 History clonazepam 1 mg tablet 1 mg PO BID 01/29/25 01/29/25 History clopidogrel 75 mg tablet (Plavix) 75 mg PO QDAY 01/29/25 01/29/25 History hydroxyzine HCl 25 mg tablet 25 mg PO QAM 01/29/25 01/29/25 History pantoprazole 40 mg tablet,delayed 40 mg PO QDAY 01/29/25 01/29/25 History release Allergies Allergy/AdvReac Type Severity Reaction Status Date / Time codeine Allergy Severe HIVES Verified 11/15/24 20:07 hydrocodone Allergy Severe RASH AND Verified 11/15/24 20:07 SWELLING Iodinated Contrast Media Allergy Severe Hives Verified 11/15/24 20:07 Exam Vital Signs Temp Pulse Resp BP Pulse Ox O2 Del Method O2 Flow Rate 98.1 F 87 19 136/65 H 96 Nasal Cannula 2 01/29/25 21:16 01/29/25 21:16 01/29/25 21:16 01/29/25 21:16 01/29/25 21:16 01/29/25 19:44 01/29/25 21:16 Routine Respiratory Exam Comments: Normal to auscultation Routine Abdominal Exam Comments: Soft nontender Results Labs 01/29/25 16:50 01/29/25 10:34 Labs: Short CBC 01/29/25 01/29/25 Range/Units 10:34 16:50 WBC 20.3 H 12.4 H D (3.6-11.0) Thou/mm3 Hgb 10.6 L 8.3 L D (12.0-16.0) g/dL Hct 32.1 L 25.4 L (36.0-46.0) % Plt Count 582 H D 505 H D (140-440) Thou/mm3 BMP 01/29/25 10:34 Sodium 139 Potassium 4.2 Chloride 106 Carbon Dioxide 24.8 BUN 16 Creatinine 0.5 L Glucose 147 H Calcium 9.2 Cardiac Enzymes 01/29/25 Range/Units 10:34 Troponin I < 0.020 (0.0-0.045) ng/mL Liver Function 01/29/25 Range/Units 10:34 Total Bilirubin 0.4 (0.3-1.2) mg/dL AST 15 (0-34) U/L ALT 47 (10-49) U/L Alkaline Phosphatase 110 (46-116) U/L Albumin 4.3 (3.4-4.8) gm/dL Urine 01/29/25 01/29/25 Range/Units 11:40 12:26 Urine Color Lt-Yellow Colorless A (Lt Yel-Yel) Urine Clarity Clear Clear (Clear/Hazy) Urine pH 7.5 H 7.5 H (5.0-7.0) Ur Specific [place] 1.017 1.004 (1.001-1.035) Urine Protein Trace Negative (Neg - Trace) Urine Glucose (UA) Negative Negative (Negative) ABG Interpretation ABG results: 01/29/25 10:34 VBG pH 7.45 VBG pCO2 37 VBG pO2 39 VBG Base Excess 2 Assessment and Plan Additional Assessment & Plan Additional Plan: #Hematochezia abnormal CT scan of the abdomen pelvis showing proctitis and colitis pattern Plan Clear liquid diet GoLytely prep Once clean fiberoptic colonoscopy with possible biopsy possible therapeutic intervention under intravenous moderate sedation Hold Yoan Will follow the patient Other medical problems include Coronary artery status post PTCA Diabetes mellitus type 1 Essential hypertension Anxiety neurosis Thank you once again for the opportunity to participate in care of this patient
[2025-01-29] MEDS: VENLAFAXINE XR 37.5 MG CAPCR 75 MG PO (22:08)
[2025-01-29] MEDS: clonazePAM 0.5 MG TABLET 1 MG PO (22:08)
[2025-01-29] MEDS: NA SU/NAHCO3/KC/PEG (Golytely) 4,000 ML BTL 4000 ML PO (23:08)
[2025-01-30] VITALS (7 sets, daily range): BP systolic 116–156; BP diastolic 54–74; PULSE 76–90; RESP 12–19; TEMP 36.1–36.6; O2SAT 90–96; BMI 29.3
[2025-01-30 02:26] LABS: Hematocrit 26.3 % (36.0-46.0)
[2025-01-30 02:45] LABS: Hemoglobin 8.7 g/dL (12.0-16.0)
[2025-01-30] MEDS: MORPHINE SULF INJ 10 MG/ML VIAL IVP ×5 (03:28→20:38)
[2025-01-30 05:22] LABS: Basophils % (Auto) 0 % (0-2.5); Eosinophils # (Auto) 0.1 Thou/mm3 (0.0-0.5); Eosinophils % (Auto) 1 % (0-10); Immature Granulocytes % (Auto) 0 % (0-0); Immature Granulocytes Auto 0.03 Thou/mm3 (0.00-0.00); Lymphocytes % (Auto) 29 % (10-50); Mean Corpuscular HGB Conc 32.7 g/dl (31.0-37.0); Mean Corpuscular Volume 89 fL (80-100); Monocytes # (Auto) 0.6 Thou/mm3 (0.0-0.8); Monocytes % (Auto) 8 % (0-12); Neutrophils # (Auto) 4.1 Thou/mm3 (1.8-7.7); Neutrophils % (Auto) 62 % (37-80); Nucleated Red Blood Cell % 0 /100 WBC (0); Platelet Count 439 Thou/mm3 (140-440); RDW Standard Deviation 44.5 fL (36.4-46.3); Red Blood Count 2.93 Miln/mm3 (4.00-5.20); White Blood Count 6.8 Thou/mm3 (3.6-11.0)
[2025-01-30 05:32] LABS: Hemoglobin 8.5 g/dL (12.0-16.0)
[2025-01-30] MEDS: PANTOPRAZOLE INJ 40 MG VIAL IVP ×2 (05:32→20:37)
[2025-01-30] MEDS: metroNIDAZOLE/NS 500 MG IVPB 500 MG/100 ML BAG 200 MG IV ×3 (05:36→22:33)
[2025-01-30 06:04] LABS: Alanine Aminotransferase 34 U/L (10-49); Albumin/Globulin Ratio 1.3 (1.2-2.2); Alkaline Phosphatase 79 U/L (46-116); Anion Gap 8 (7-16); Aspartate Amino Transferase 12 U/L (0-34); BUN/Creatinine Ratio 20 Ratio (12-20); Bilirubin,Total 0.2 mg/dL (0.3-1.2); Blood Urea Nitrogen 10 mg/dL (9-23); Calcium 7.8 mg/dL (8.3-10.6); Calcium (Corrected) 8.6 mg/dL (8.5-10.1); Carbon Dioxide 23.1 mMol/L (20.0-31.0); Chloride 111 mMol/L (98-107); Creatinine (Component) 0.5 mg/dL (0.6-1.3); Estimated Creatinine Clearance 104.7 mL/min (>60); Globulin 2.3 gm/dL (2.3-3.5); Glucose 146 mg/dL (74-106); Osmolality,Calculated 285 (275-295); Phosphorous 3.1 mg/dL (2.4-5.1); Potassium 3.6 mMol/L (3.4-5.1); Sodium 142 mMol/L (136-145); Thyroid Stimulating Hormone 3.08 uIU/mL (0.55-4.78); Total Protein 5.3 gm/dL (5.7-8.2); eGFR > 60 See Note
[2025-01-30] MEDS: ACETAMINOPHEN 325 MG TABLET 650 MG PO (08:22)
[2025-01-30] MEDS: clonazePAM 0.5 MG TABLET 1 MG PO ×2 (08:23→20:55)
[2025-01-30] MEDS: cefTRIAXone/D5w 2gm 2 GM/50 ML BAG IV (08:23)
[2025-01-30] MEDS: RINGERS LACTATED 1000 ML 1,000 ML 75 ML IV (10:17)
[2025-01-30] MEDS: POTASSIUM CHLORIDE 20 mEq TABCR 40 MEQ PO (11:07)
--- NOTE | 2025-01-30 11:16 | PC.SS ---
Patient Ariadna Albarran is a 64 Year old female admitted for Hematochezia. SS met with patient at bedside to discuss discharge planning and review demographic information. Patient reports she lives at home with her , Ceasar Thompson who she reports is her surrogate decision maker [phone]. Patient reports she does not utilize any source of DME to assist with ambulation. Patient does not utilize any home 02. PCP is Nadeen Sewell.At time of discharge patient will return home. Family will provide transportation. Next of Kin: EdvinCeasar [phone] Discharge plan: Home
--- NOTE | 2025-01-30 13:24 | ESPR_ITS ---
<Statement entered by Boy Meza MD - 01/30/25 15:29> Patient was seen and examined at the bedside. Patient presented yesterday due to GI bleed/hematochezia. We are currently holding Plavix. Blood pressure was stable. Hemoglobin remained stable posttransfusion. Repeated H&H which showed improvement in hemoglobin to 9.1. Will follow-up with blood cultures and MRSA screen. GI specialist recommended colonoscopy and patient is currently on GoLytely prep. Home medications were reconciled. Will follow with the colonoscopy results. All labs and orders were reviewed. I saw and examined the patient, and I agree with current management stated by Dr Gianluca MD,PGY1. Plan of care was discussed with the attending physician and resident physician. Disclaimer: Despite multiple revisions, due to the dictation software being used, the document bellow may not be free of grammatical errors including phonetic/typographic errors. However, this does not deter from our commitment to providing health care in the patient's best interest in mind. Dr. Susana MD, PGY 2 Documentation for date of: 01/30/25 Subjective Subjective Interval history: Ariadna Albarran is a 64-year-old female with a past medical history of CAD s/p multiple stents, PAD, a-fib (not on AC), HTN, T2DM, and esophageal strictures s/p dilatation x2 who presented to the ED on 01/29 for hematochezia. at bedside who helped aid in providing history. Around 3:00 AM, patient woke up due to significant abdominal pain and had bloody bowel movement. Per , bowel content was around toilet bowl and on floor suggesting that patient was incontinent. Denies rectal pain during bowel movements but states that she has had abdominal pain since being released from an outside hospital for DKA and pneumonia requiring mechanical ventilation. However, patient has been having loose bowel movements for approximately one month and lately has been having 10- 12 BMs per day that are foul-smelling. Does not state she was on antibiotics prior to loose bowel movements. Of note, she did undergo a colonoscopy within the last year by Dr. Juárez without significant findings per patient. Admitted for further workup/management of lower GI bleed. 01/30: Seen and examined at bedside in telemetry. No acute overnight events reported. States that she continues to have bloody bowel movements and significant abdominal pain but well-controlled with morphine. Was given 1 unit PRBC day prior and repeat hemoglobin only increased from 8.3 to 8.7. On a.m. labs, hemoglobin 8.5 and will obtain repeat H&H later today to see if patient will require another blood transfusion. Otherwise, plan for colonoscopy today. Exam Vital Signs Temp Pulse Resp BP Pulse Ox O2 Del Method O2 Flow Rate 97.6 F 81 19 139/60 H 90 L Room Air 2 01/30/25 08:00 01/30/25 08:00 01/30/25 08:00 01/30/25 08:00 01/30/25 08:00 01/30/25 08:00 01/30/25 04:00 Narrative Exam General: AOx3, in mild distress, able to speak full sentences HEENT: NC/AT, mucous membranes moist, bilateral sclera anicteric Cardiovascular: regular rate and rhythm, S1/S2 present, no murmurs appreciated Pulmonary: clear to auscultation bilaterally, no rales/rhonchi/wheezes Abdominal: tenderness to palpation in left upper and lower quadrants, soft, nondistended Musculoskeletal: normal ROM, no peripheral edema Skin: warm and dry, intact, no rashes Neuro: CN II-XII intact, no focal deficits Objective Labs 01/30/25 13:26 01/30/25 05:00 Labs: Laboratory Results - last 24 hr 01/29/25 01/29/25 01/30/25 11:54 16:50 02:05 WBC 12.4 H D RBC 2.89 L Hgb 8.3 L D 8.7 L Hct 25.4 L 26.3 L MCV 88 MCH 28.7 MCHC 32.7 RDW Std Deviation 42.5 Plt Count 505 H D Neut % (Auto) 75 Lymph % (Auto) 19 [place] % (Auto) 6 Eos % (Auto) 0 Baso % (Auto) 0 Neut # (Auto) 9.3 H Lymph # (Auto) 2.3 [place] # (Auto) 0.7 Eos # (Auto) 0.0 Baso # (Auto) 0.0 Immature Gran # (Auto) 0.06 H Absolute Nucleated RBC 0.00 Immature Gran % 1 H Nucleated RBC % 0 Sodium Potassium Chloride Carbon Dioxide Anion Gap BUN Creatinine Estim Creat Clear Calc eGFR BUN/Creatinine Ratio Glucose Calculated Osmolality Calcium Corrected Calcium Phosphorus Magnesium Total Bilirubin AST ALT Alkaline Phosphatase Total Protein Albumin Globulin Albumin/Globulin Ratio TSH Blood Type B Negative Antibody Screen NEGATIVE Crossmatch See Detail Blood Bank Wristband ID Yes 01/30/25 05:00 WBC 6.8 D RBC 2.93 L Hgb 8.5 L Hct 26.0 L MCV 89 MCH 29.0 MCHC 32.7 RDW Std Deviation 44.5 Plt Count 439 D Neut % (Auto) 62 Lymph % (Auto) 29 [place] % (Auto) 8 Eos % (Auto) 1 Baso % (Auto) 0 Neut # (Auto) 4.1 Lymph # (Auto) 2.0 [place] # (Auto) 0.6 Eos # (Auto) 0.1 Baso # (Auto) 0.0 Immature Gran # (Auto) 0.03 H Absolute Nucleated RBC 0.00 Immature Gran % 0 Nucleated RBC % 0 Sodium 142 Potassium 3.6 D Chloride 111 H Carbon Dioxide 23.1 Anion Gap 8 BUN 10 Creatinine 0.5 L Estim Creat Clear Calc 104.7 eGFR > 60 BUN/Creatinine Ratio 20 Glucose 146 H Calculated Osmolality 285 Calcium 7.8 L Corrected Calcium 8.6 Phosphorus 3.1 Magnesium 2.0 Total Bilirubin 0.2 L AST 12 ALT 34 Alkaline Phosphatase 79 D Total Protein 5.3 L Albumin 3.0 L D Globulin 2.3 Albumin/Globulin Ratio 1.3 TSH 3.08 Blood Type Antibody Screen Crossmatch Blood Bank Wristband ID ABG Interpretation ABG results: 01/29/25 10:34 VBG pH 7.45 VBG pCO2 37 VBG pO2 39 VBG Base Excess 2 Quality Measures Quality Measures none Advance care planning discussed with:: other Assessment & Plan Assessment Current Active Medications: Generic Name Dose Route Start Last Admin Trade Name Freq PRN Reason Stop Dose Admin Acetaminophen 650 mg 01/29/25 16:25 01/30/25 08:22 Acetaminophen 325 Mg Tablet PO 02/28/25 16:24 650 mg Q6H PRN Administration PAIN OR FEVER > 100.4 Protocol Clonazepam 1 mg 01/29/25 21:00 01/30/25 08:23 Clonazepam 0.5 Mg Tablet PO 02/03/25 20:59 1 mg BID DENISSE Administration Dextrose 25 ml 01/29/25 16:33 Dextrose 50%-Water Inj 50 Ml Syringe IV 02/28/25 16:32 Q15MIN PRN BG 50-70 responsive npo pt Dextrose 50 ml 01/29/25 16:33 Dextrose 50%-Water Inj 50 Ml Syringe IV 02/28/25 16:32 Q15MIN PRN BG <50 OR BG <70 & pt unresponsive Glucagon 1 mg 01/29/25 16:33 Glucagon Inj 1 Mg Vial IM Q15MIN PRN BG <70, and no IV access Lactated Ringer's 1,000 mls @ 75 mls/hr 01/29/25 16:30 01/30/25 10:17 Lactated Ringers IV 01/30/25 16:29 75 mls/hr .[id number] DENISSE Administration Ceftriaxone Sodium/Dextrose 2 gm in 50 mls @ 100 mls/hr 01/29/25 17:32 01/30/25 08:23 Rocephin/D5w 2gm IV 02/05/25 17:31 100 mls/hr QDAY DENISSE Administration Metronidazole 500 mg in 100 mls @ 200 mls/hr 01/29/25 17:33 01/30/25 05:36 Flagyl 500 Mg Iv IV 02/05/25 17:32 200 mls/hr Q8HR DENISSE Administration Insulin Human Lispro 0 unit 01/29/25 18:00 01/30/25 12:31 Insulin Lispro (Admelog) 1 Unit/0.01 Ml Unit SC 02/28/25 17:59 Not Given Q6HR DENISSE Protocol Morphine Sulfate 1 mg 01/30/25 09:21 01/30/25 10:16 Morphine Sulf Inj 10 Mg/Ml Vial IVP 02/04/25 09:20 1 mg Q4HR PRN Administration PAIN SCALE 7-10 (Severe) Ondansetron HCl 4 mg 01/29/25 16:25 Ondansetron Inj 2 Mg/Ml Inj 2 Ml IV 02/28/25 16:24 Q6H PRN NAUSEA OR VOMITING Protocol Pantoprazole Sodium 40 mg 01/30/25 06:00 01/30/25 05:32 Pantoprazole Inj 40 Mg Vial IVP 03/01/25 05:59 40 mg BID DENISSE Administration Venlafaxine HCl 75 mg 01/29/25 21:00 01/29/25 22:08 Venlafaxine Xr 37.5 Mg Capcr PO 02/28/25 20:59 75 mg HS DENISSE Administration Plan Ariadna Albarran is a 64-year-old female with a past medical history of CAD s/p multiple stents, PAD, a-fib (not on AC), HTN, T2DM, and esophageal strictures s/p dilatation x2 who presented to the ED on 01/29 for hematochezia and admitted for further workup/management of lower GI bleed. #Lower GI bleed #Hematochezia Presented after 1 episode of hematochezia. Noted to have abdominal pain for approximately 2 weeks and loose, nonbloody, foul-smelling bowel movements for 1 month. No antibiotic use prior to 1 month ago but does take PPI at home. Diffuse abdominal tenderness on exam. WBC 20, afebrile. Imaging showed gastritis and diverticulitis but no colitis pattern seen. On admission, hemoglobin 10.6 (baseline 12-13) and repeat showed hemoglobin of 8.3. H&H after transfusion was 8.7 and in AM labs showed hemoglobin 8.5. ? GI consulted, appreciate recommendations ? N.p.o. except for medications ? Follow-up repeat H&H in afternoon ? Pantoprazole 40 mg IV twice daily ? Ceftriaxone 2 g IV daily (01/29-) ? Flagyl 500 mg IV every 8 hours (01/29-) ? Morphine 1 mg IV every 4 hours as needed for severe pain ? Zofran for nausea #CAD status post multiple stents #PAD (status post stents in bilateral femoral arteries, aorta, and ICA) Home aspirin 81 mg p.o. daily, atorvastatin 80 mg p.o. at bedtime, clopidogrel 75 mg p.o. daily ? Hold home p.o. meds #Atrial fibrillation Currently not on anticoagulation as patient states that they have not been able to follow-up with sheet sewer, Dr. Dillard, yet. Additionally, we will hold all anticoagulation/antiplatelets given lower GI bleed. Home metoprolol succinate 100 mg p.o. daily #Hypertension Home amlodipine 2.5 mg p.o. at bedtime, lisinopril-HCTZ, metoprolol succinate 100 mg p.o. daily ? Hold home p.o. meds #Type 2 diabetes mellitus, [id number] A1c 12/2024 7.6%, on metformin 750 mg p.o. daily ? SSI every 6 hours #Thrombocytosis, likely reactive in setting of lower GI bleed ? Continue to monitor Hospital management: Disposition: Pending colonoscopy today Fluids: None Diet: N.p.o. Lines: PIV's DVT prophylaxis: SCDs given GI bleed GI prophylaxis: Pantoprazole 40 mg IV twice daily CODE STATUS: full code ----- Plan discussed with attending physician Dr. Salas and senior resident physician Dr. Susana Hough MD PGY-1 Internal Medicine Attending Provider Attestation/Addendum I have discussed and was present for the essential components of the history, physical examination, diagnosis, and treatment plan with the resident. I agree with the patient's care as documented by the resident and amended herein by me. Eldon Salas, DO. Although this document has been carefully reviewed, there may still be some phonetic and other typographical errors. These errors are purely grammatical due to imperfections in the software program and should not be construed in any way to compromise the substance of the patient's medical care during this visit.
[2025-01-30 14:04] LABS: Hematocrit 27.4 % (36.0-46.0); Hemoglobin 9.1 g/dL (12.0-16.0)
--- NOTE | 2025-01-30 14:50 | PC.SS ---
SS follow up note; Colonoscopy and blood cultures pending.
--- NOTE | 2025-01-30 17:05 | ESPR_ITS ---
Documentation for date of: 01/30/25 Subjective Subjective Interval history: Patient was scheduled for a colonoscopy but she is not clean and she is taking her time to drink it that is the GoLytely Procedure postponed to tomorrow Hemoglobin hematocrit is 9.1 and 27.4 Exam Vital Signs Temp Pulse Resp BP Pulse Ox O2 Del Method O2 Flow Rate 97.9 F 83 14 131/69 H 92 L Room Air 2 01/30/25 16:00 01/30/25 16:00 01/30/25 16:00 01/30/25 16:00 01/30/25 16:00 01/30/25 16:00 01/30/25 04:00 Constitutional Comments: Alert oriented Routine Respiratory Exam Comments: Normal to auscultation Routine Abdominal Exam Comments: Soft nontender Objective Labs 01/30/25 13:26 01/30/25 05:00 Labs: Laboratory Results - last 24 hr 01/29/25 01/29/25 01/30/25 11:54 16:50 02:05 WBC 12.4 H D RBC 2.89 L Hgb 8.3 L D 8.7 L Hct 25.4 L 26.3 L MCV 88 MCH 28.7 MCHC 32.7 RDW Std Deviation 42.5 Plt Count 505 H D Neut % (Auto) 75 Lymph % (Auto) 19 [place] % (Auto) 6 Eos % (Auto) 0 Baso % (Auto) 0 Neut # (Auto) 9.3 H Lymph # (Auto) 2.3 [place] # (Auto) 0.7 Eos # (Auto) 0.0 Baso # (Auto) 0.0 Immature Gran # (Auto) 0.06 H Absolute Nucleated RBC 0.00 Immature Gran % 1 H Nucleated RBC % 0 Sodium Potassium Chloride Carbon Dioxide Anion Gap BUN Creatinine Estim Creat Clear Calc eGFR BUN/Creatinine Ratio Glucose Calculated Osmolality Calcium Corrected Calcium Phosphorus Magnesium Total Bilirubin AST ALT Alkaline Phosphatase Total Protein Albumin Globulin Albumin/Globulin Ratio TSH Blood Type B Negative Antibody Screen NEGATIVE Crossmatch See Detail Blood Bank Wristband ID Yes 01/30/25 01/30/25 05:00 13:26 WBC 6.8 D RBC 2.93 L Hgb 8.5 L 9.1 L Hct 26.0 L 27.4 L MCV 89 MCH 29.0 MCHC 32.7 RDW Std Deviation 44.5 Plt Count 439 D Neut % (Auto) 62 Lymph % (Auto) 29 [place] % (Auto) 8 Eos % (Auto) 1 Baso % (Auto) 0 Neut # (Auto) 4.1 Lymph # (Auto) 2.0 [place] # (Auto) 0.6 Eos # (Auto) 0.1 Baso # (Auto) 0.0 Immature Gran # (Auto) 0.03 H Absolute Nucleated RBC 0.00 Immature Gran % 0 Nucleated RBC % 0 Sodium 142 Potassium 3.6 D Chloride 111 H Carbon Dioxide 23.1 Anion Gap 8 BUN 10 Creatinine 0.5 L Estim Creat Clear Calc 104.7 eGFR > 60 BUN/Creatinine Ratio 20 Glucose 146 H Calculated Osmolality 285 Calcium 7.8 L Corrected Calcium 8.6 Phosphorus 3.1 Magnesium 2.0 Total Bilirubin 0.2 L AST 12 ALT 34 Alkaline Phosphatase 79 D Total Protein 5.3 L Albumin 3.0 L D Globulin 2.3 Albumin/Globulin Ratio 1.3 TSH 3.08 Blood Type Antibody Screen Crossmatch Blood Bank Wristband ID Impressions Impression: Hematochezia posthemorrhagic anemia plan Continue GoLytely prep ABG Interpretation ABG results: 01/29/25 10:34 VBG pH 7.45 VBG pCO2 37 VBG pO2 39 VBG Base Excess 2 Assessment & Plan A&P Narrative #Hematochezia abnormal CT scan of the abdomen pelvis showing proctitis and colitis pattern Plan Clear liquid diet GoLytely prep Once clean fiberoptic colonoscopy with possible biopsy possible therapeutic intervention under intravenous moderate sedation Hold Eliquis Will follow the patient Other medical problems include Coronary artery status post PTCA Diabetes mellitus type 1 Essential hypertension Anxiety neurosis Thank you once again for the opportunity to participate in care of this patient Time Spent With Patient Time: Total time spent is greater than 50% in coordination of care (as documented) at patient's floor/unit and/or counseling patient:
--- NOTE | 2025-01-30 19:16 | PC.NURSE ---
RN placed NGT in left nare. Patient stated that NGT was uncomfortable and pulled tube out. Patient is alert and oriented and refused NGT Placement. MD Franck notified.
[2025-01-30 19:58] LABS: Hematocrit 31.1 % (36.0-46.0)
[2025-01-31] VITALS (21 sets, daily range): BP systolic 108–204; BP diastolic 40–111; PULSE 74–102; RESP 9–18; TEMP 36.1–36.8; O2SAT 92–100; BMI 29.3
[2025-01-31] MEDS: HYDROmorphone INJ 2 MG/ML VIAL 0.25 MG IVP (00:16)
[2025-01-31] MEDS: INSULIN LISPRO (AdmeLOG) 1 UNIT/0.01 ML UNIT SC (00:42)
[2025-01-31] MEDS: MORPHINE SULF INJ 10 MG/ML VIAL IVP ×5 (01:27→19:51)
[2025-01-31 02:42] LABS: Hematocrit 26.6 % (36.0-46.0); Hemoglobin 8.9 g/dL (12.0-16.0)
[2025-01-31] MEDS: metroNIDAZOLE/NS 500 MG IVPB 500 MG/100 ML BAG 200 MG IV ×3 (05:35→22:03)
[2025-01-31 05:57] LABS: Basophils % (Auto) 0 % (0-2.5); Eosinophils # (Auto) 0.1 Thou/mm3 (0.0-0.5); Eosinophils % (Auto) 1 % (0-10); Hematocrit 25.5 % (36.0-46.0); Hemoglobin 8.5 g/dL (12.0-16.0); Immature Granulocytes % (Auto) 0 % (0-0); Immature Granulocytes Auto 0.02 Thou/mm3 (0.00-0.00); Lymphocytes # (Auto) 1.5 Thou/mm3 (1.0-4.8); Lymphocytes % (Auto) 27 % (10-50); Mean Corpuscular HGB Conc 33.3 g/dl (31.0-37.0); Mean Corpuscular Hemoglobin 28.9 pg (25.0-35.0); Mean Corpuscular Volume 87 fL (80-100); Monocytes # (Auto) 0.6 Thou/mm3 (0.0-0.8); Monocytes % (Auto) 10 % (0-12); Neutrophils # (Auto) 3.5 Thou/mm3 (1.8-7.7); Neutrophils % (Auto) 62 % (37-80); Nucleated Red Blood Cell % 0 /100 WBC (0); Platelet Count 498 Thou/mm3 (140-440); RDW Standard Deviation 42.4 fL (36.4-46.3); Red Blood Count 2.94 Miln/mm3 (4.00-5.20); White Blood Count 5.7 Thou/mm3 (3.6-11.0)
[2025-01-31 06:25] LABS: Alanine Aminotransferase 27 U/L (10-49); Albumin, Serum 3.3 gm/dL (3.4-4.8); Albumin/Globulin Ratio 1.5 (1.2-2.2); Alkaline Phosphatase 77 U/L (46-116); Anion Gap 9 (7-16); Aspartate Amino Transferase 21 U/L (0-34); BUN/Creatinine Ratio 13 Ratio (12-20); Bilirubin,Total 0.3 mg/dL (0.3-1.2); Blood Urea Nitrogen 5 mg/dL (9-23); Calcium 8.4 mg/dL (8.3-10.6); Carbon Dioxide 24.7 mMol/L (20.0-31.0); Chloride 108 mMol/L (98-107); Creatinine (Component) 0.4 mg/dL (0.6-1.3); Estimated Creatinine Clearance 130.9 mL/min (>60); Globulin 2.2 gm/dL (2.3-3.5); Glucose 105 mg/dL (74-106); Osmolality,Calculated 280 (275-295); Phosphorous 2.6 mg/dL (2.4-5.1); Potassium 3.9 mMol/L (3.4-5.1); Sodium 142 mMol/L (136-145); Total Protein 5.5 gm/dL (5.7-8.2); eGFR > 60 See Note
[2025-01-31 08:35] LABS: Hematocrit 27.8 % (36.0-46.0); Hemoglobin 9.1 g/dL (12.0-16.0)
[2025-01-31] MEDS: clonazePAM 0.5 MG TABLET 1 MG PO ×2 (08:54→22:03)
[2025-01-31] MEDS: cefTRIAXone/D5w 2gm 2 GM/50 ML BAG IV (08:54)
[2025-01-31] MEDS: PANTOPRAZOLE INJ 40 MG VIAL IVP ×2 (08:54→22:03)
--- NOTE | 2025-01-31 13:23 | SUR.PHASEI ---
pt received from OR in recovery bay 1. pt asleep but responds to voice, breathing unlabored on nc 4l. v/s stable. report received from Shanti GONG.
--- NOTE | 2025-01-31 13:53 | SUR.PHASEI ---
pt asleep but responds to voice, breathing unlabored on 2l nc. v/s stable. report called to Emily GONG. pt will be transferred to room at this time.
--- NOTE | 2025-01-31 15:30 | PD.RESPRO ---
Documentation for date of: 01/31/25 Subjective Subjective Interval history: Patient was seen and examined at the bedside. Patient was concern for having colonoscopy today as she is clear and drank her whole GoLytely prep. Overnight, patient passed blood clots there for GI specialist recommended to do H&H every 6 hourly. Colonoscopy was significant for ischemic colitis and hemorrhoids. There was an area of 4.5 cm ulcerated with blood clot. Biopsies were taken. Mild diverticulosis in the sigmoid colon and descending colon was seen. EGD was unremarkable. Hemoglobin remained stable recent was 8.7. electrolytes were unremarkable. Kidney functions were stable.. GI specialist recommended to have recommendations from general surgery, Dr Hilario for possible surgical intervention and keep the patient n.p.o. Patient and patient's was updated regarding the plan and they were agreeable to it. Will follow with surgery recommendations. H&H every 6 hourly. Exam Vital Signs Temp Pulse Resp BP Pulse Ox O2 Del Method O2 Flow Rate 97.4 F 87 15 115/59 L 95 Room Air 2 01/31/25 13:53 01/31/25 13:53 01/31/25 13:53 01/31/25 13:53 01/31/25 13:53 01/31/25 08:00 01/31/25 13:53 Narrative Exam General: AOx3, in mild distress, able to speak full sentences HEENT: NC/AT, mucous membranes moist, bilateral sclera anicteric Cardiovascular: regular rate and rhythm, S1/S2 present, no murmurs appreciated Pulmonary: clear to auscultation bilaterally, no rales/rhonchi/wheezes Abdominal: tenderness to palpation in left upper and lower quadrants, soft, nondistended Musculoskeletal: normal ROM, no peripheral edema Skin: warm and dry, intact, no rashes Neuro: CN II-XII intact, no focal deficits Objective Labs 02/01/25 06:01 02/01/25 06:01 Labs: Laboratory Results - last 24 hr 01/30/25 01/30/25 01/31/25 15:00 19:35 02:25 WBC RBC Hgb 10.0 L 8.9 L Hct 31.1 L 26.6 L MCV MCH MCHC RDW Std Deviation Plt Count Neut % (Auto) Lymph % (Auto) [place] % (Auto) Eos % (Auto) Baso % (Auto) Neut # (Auto) Lymph # (Auto) [place] # (Auto) Eos # (Auto) Baso # (Auto) Immature Gran # (Auto) Absolute Nucleated RBC Immature Gran % Nucleated RBC % Sodium Potassium Chloride Carbon Dioxide Anion Gap BUN Creatinine Estim Creat Clear Calc eGFR BUN/Creatinine Ratio Glucose Calculated Osmolality Calcium Corrected Calcium Phosphorus Magnesium Total Bilirubin AST ALT Alkaline Phosphatase Total Protein Albumin Globulin Albumin/Globulin Ratio Stl C. diff Tox B Gene Cancelled 01/31/25 01/31/25 05:35 08:02 WBC 5.7 RBC 2.94 L Hgb 8.5 L 9.1 L Hct 25.5 L 27.8 L MCV 87 MCH 28.9 MCHC 33.3 RDW Std Deviation 42.4 Plt Count 498 H D Neut % (Auto) 62 Lymph % (Auto) 27 [place] % (Auto) 10 Eos % (Auto) 1 Baso % (Auto) 0 Neut # (Auto) 3.5 Lymph # (Auto) 1.5 [place] # (Auto) 0.6 Eos # (Auto) 0.1 Baso # (Auto) 0.0 Immature Gran # (Auto) 0.02 H Absolute Nucleated RBC 0.00 Immature Gran % 0 Nucleated RBC % 0 Sodium 142 Potassium 3.9 Chloride 108 H Carbon Dioxide 24.7 Anion Gap 9 BUN 5 L Creatinine 0.4 L Estim Creat Clear Calc 130.9 eGFR > 60 BUN/Creatinine Ratio 13 Glucose 105 Calculated Osmolality 280 Calcium 8.4 Corrected Calcium 9.0 Phosphorus 2.6 Magnesium 2.0 Total Bilirubin 0.3 AST 21 ALT 27 Alkaline Phosphatase 77 Total Protein 5.5 L Albumin 3.3 L Globulin 2.2 L Albumin/Globulin Ratio 1.5 Stl C. diff Tox B Gene ABG Interpretation ABG results: 01/29/25 10:34 VBG pH 7.45 VBG pCO2 37 VBG pO2 39 VBG Base Excess 2 Quality Measures Quality Measures VTE prophylaxis (SCDs) Advance care planning discussed with:: patient Assessment & Plan Assessment Current Active Medications: Generic Name Dose Route Start Last Admin Trade Name Freq PRN Reason Stop Dose Admin Acetaminophen 650 mg 01/29/25 16:25 01/30/25 08:22 Acetaminophen 325 Mg Tablet PO 02/28/25 16:24 650 mg Q6H PRN Administration PAIN OR FEVER > 100.4 Protocol Clonazepam 1 mg 01/29/25 21:00 01/31/25 08:54 Clonazepam 0.5 Mg Tablet PO 02/03/25 20:59 1 mg BID DENISSE Administration Dextrose 25 ml 01/29/25 16:33 Dextrose 50%-Water Inj 50 Ml Syringe IV 02/28/25 16:32 Q15MIN PRN BG 50-70 responsive npo pt Dextrose 50 ml 01/29/25 16:33 Dextrose 50%-Water Inj 50 Ml Syringe IV 02/28/25 16:32 Q15MIN PRN BG <50 OR BG <70 & pt unresponsive Glucagon 1 mg 01/29/25 16:33 Glucagon Inj 1 Mg Vial IM Q15MIN PRN BG <70, and no IV access Ceftriaxone Sodium/Dextrose 2 gm in 50 mls @ 100 mls/hr 01/29/25 17:32 01/31/25 08:54 Rocephin/D5w 2gm IV 02/05/25 17:31 100 mls/hr QDAY DENISSE Administration Metronidazole 500 mg in 100 mls @ 200 mls/hr 01/29/25 17:33 01/31/25 14:11 Flagyl 500 Mg Iv IV 02/05/25 17:32 200 mls/hr Q8HR DENISSE Administration Lactated Ringer's 1,000 mls @ 75 mls/hr 01/31/25 15:28 Lactated Ringers IV 02/01/25 15:27 .[id number] DENISSE Insulin Human Lispro 0 unit 01/29/25 18:00 01/31/25 13:16 Insulin Lispro (Admelog) 1 Unit/0.01 Ml Unit SC 02/28/25 17:59 Not Given Q6HR [facility] Protocol Morphine Sulfate 1 mg 01/30/25 09:21 01/31/25 15:23 Morphine Sulf Inj 10 Mg/Ml Vial IVP 02/04/25 09:20 1 mg Q4HR PRN Administration PAIN SCALE 7-10 (Severe) Ondansetron HCl 4 mg 01/29/25 16:25 Ondansetron Inj 2 Mg/Ml Inj 2 Ml IV 02/28/25 16:24 Q6H PRN NAUSEA OR VOMITING Protocol Pantoprazole Sodium 40 mg 01/30/25 06:00 01/31/25 08:54 Pantoprazole Inj 40 Mg Vial IVP 03/01/25 05:59 40 mg BID DENISSE Administration Venlafaxine HCl 75 mg 01/29/25 21:00 01/29/25 22:08 Venlafaxine Xr 37.5 Mg Capcr PO 02/28/25 20:59 75 mg HS DENISSE Administration Plan Ariadna Albarran is a 64-year-old female with a past medical history of CAD s/p multiple stents, PAD, a-fib (not on AC), HTN, T2DM, and esophageal strictures s/p dilatation x2 who presented to the ED on 01/29 for hematochezia and admitted for further workup/management of lower GI bleed. #Ischemic colitis, hemorrhoids and diverticulosis per colonoscopy on 01/31/2025 #Hematochezia Presented after 1 episode of hematochezia. Noted to have abdominal pain for approximately 2 weeks and loose, nonbloody, foul-smelling bowel movements for 1 month. No antibiotic use prior to 1 month ago but does take PPI at home. Diffuse abdominal tenderness on exam. WBC 20, afebrile. Imaging showed gastritis and diverticulitis but no colitis pattern seen. On admission, hemoglobin 10.6 (baseline 12-13) and repeat showed hemoglobin of 8.3. Colonoscopy showed ischemic colitis. There was an area of 4.5 cm ulcerated with blood clot. Additionally, hemorrhoids and diverticulosis was seen. EGD was unremarkable. ? Dr Hilario, surgery has been consulted for further recommendations and evaluation ? GI consulted, appreciate recommendations ? H&H every 6 hourly ? N.p.o. except for medications ? Pantoprazole 40 mg IV twice daily ? Ceftriaxone 2 g IV daily (01/29-) ? Flagyl 500 mg IV every 8 hours (01/29-) ? Morphine 1 mg IV every 4 hours as needed for severe pain ? Zofran for nausea #CAD status post multiple stents #PAD (status post stents in bilateral femoral arteries, aorta, and ICA) Home aspirin 81 mg p.o. daily, atorvastatin 80 mg p.o. at bedtime, clopidogrel 75 mg p.o. daily ? Hold home p.o. meds #Atrial fibrillation Currently not on anticoagulation as patient states that they have not been able to follow-up with cloth hauler, Dr. Dillard, yet. Additionally, we will hold all anticoagulation/antiplatelets given lower GI bleed. Home metoprolol succinate 100 mg p.o. daily #Hypertension Home amlodipine 2.5 mg p.o. at bedtime, lisinopril-HCTZ, metoprolol succinate 100 mg p.o. daily ? Hold home p.o. meds #Type 2 diabetes mellitus, [id number] A1c 12/2024 7.6%, on metformin 750 mg p.o. daily ? SSI every 6 hours ? Hypoglycemia protocol with Accu-Cheks #Thrombocytosis, likely reactive in setting of lower GI bleed ? Continue to monitor Hospital management: Disposition: Colonoscopy showed ischemic colitis. Pending surgery recommendations. Fluids: None Diet: N.p.o. Lines: PIV's DVT prophylaxis: SCDs given GI bleed GI prophylaxis: Pantoprazole 40 mg IV twice daily CODE STATUS: full code ----- Patient was seen and discussed with attending physician, Dr. Josue Meza MD, PGY 2 Attending Provider Attestation/Addendum I have discussed and was present for the essential components of the history, physical examination, diagnosis, and treatment plan with the resident. I agree with the patient's care as documented by the resident and amended herein by me. Eldon Salas DO. Although this document has been carefully reviewed, there may still be some phonetic and other typographical errors. These errors are purely grammatical due to imperfections in the software program and should not be construed in any way to compromise the substance of the patient's medical care during this visit.
[2025-01-31 15:55] LABS: Hemoglobin 9.1 g/dL (12.0-16.0)
[2025-01-31 19:10] LABS: Hematocrit 26.8 % (36.0-46.0)
[2025-01-31 19:18] LABS: Hemoglobin 8.7 g/dL (12.0-16.0)
[2025-01-31] MEDS: HYDROmorphone INJ 2 MG/ML VIAL 0.5 MG IVP (22:02)
[2025-01-31] MEDS: RINGERS LACTATED 1000 ML 1,000 ML 75 ML IV (22:16)
[2025-02-01] VITALS (8 sets, daily range): BP systolic 105–177; BP diastolic 47–93; PULSE 81–116; RESP 12–18; TEMP 36.3–36.9; O2SAT 92–100; BMI 29.3
[2025-02-01] MEDS: MORPHINE SULF INJ 10 MG/ML VIAL 2 MG IVP ×3 (00:02→09:32)
[2025-02-01] MEDS: metroNIDAZOLE/NS 500 MG IVPB 500 MG/100 ML BAG 200 MG IV ×3 (05:13→21:08)
[2025-02-01 06:35] LABS: Basophils % (Auto) 0 % (0-2.5); Eosinophils # (Auto) 0.1 Thou/mm3 (0.0-0.5); Eosinophils % (Auto) 1 % (0-10); Hematocrit 25.2 % (36.0-46.0); Immature Granulocytes % (Auto) 0 % (0-0); Immature Granulocytes Auto 0.02 Thou/mm3 (0.00-0.00); Lymphocytes # (Auto) 1.6 Thou/mm3 (1.0-4.8); Lymphocytes % (Auto) 31 % (10-50); Mean Corpuscular HGB Conc 32.9 g/dl (31.0-37.0); Mean Corpuscular Hemoglobin 28.7 pg (25.0-35.0); Mean Corpuscular Volume 87 fL (80-100); Monocytes # (Auto) 0.6 Thou/mm3 (0.0-0.8); Monocytes % (Auto) 11 % (0-12); Neutrophils # (Auto) 2.9 Thou/mm3 (1.8-7.7); Neutrophils % (Auto) 56 % (37-80); Nucleated Red Blood Cell % 0 /100 WBC (0); Platelet Count 576 Thou/mm3 (140-440); RDW Standard Deviation 43.7 fL (36.4-46.3); Red Blood Count 2.89 Miln/mm3 (4.00-5.20); White Blood Count 5.1 Thou/mm3 (3.6-11.0)
[2025-02-01 06:44] LABS: Hemoglobin 8.3 g/dL (12.0-16.0); INR 1.1 (0.9-1.3); Partial Thromboplastin Time 25.8 Seconds (22.0-36.0)
[2025-02-01 06:56] LABS: Alanine Aminotransferase 20 U/L (10-49); Albumin, Serum 3.1 gm/dL (3.4-4.8); Albumin/Globulin Ratio 1.5 (1.2-2.2); Alkaline Phosphatase 70 U/L (46-116); Anion Gap 6 (7-16); Aspartate Amino Transferase 13 U/L (0-34); BUN/Creatinine Ratio 10 Ratio (12-20); Bilirubin,Total 0.2 mg/dL (0.3-1.2); Blood Urea Nitrogen 5 mg/dL (9-23); Calcium 8.2 mg/dL (8.3-10.6); Calcium (Corrected) 8.9 mg/dL (8.5-10.1); Carbon Dioxide 24.5 mMol/L (20.0-31.0); Chloride 111 mMol/L (98-107); Creatinine (Component) 0.5 mg/dL (0.6-1.3); Estimated Creatinine Clearance 104.7 mL/min (>60); Globulin 2.1 gm/dL (2.3-3.5); Glucose 111 mg/dL (74-106); Osmolality,Calculated 279 (275-295); Phosphorous 3.5 mg/dL (2.4-5.1); Potassium 3.4 mMol/L (3.4-5.1); Sodium 141 mMol/L (136-145); Total Protein 5.2 gm/dL (5.7-8.2); eGFR > 60 See Note
[2025-02-01] MEDS: cefTRIAXone/D5w 2gm 2 GM/50 ML BAG IV (09:33)
[2025-02-01] MEDS: PANTOPRAZOLE INJ 40 MG VIAL IVP ×2 (09:33→21:08)
[2025-02-01] MEDS: clonazePAM 0.5 MG TABLET 1 MG PO ×2 (09:33→21:08)
[2025-02-01] MEDS: POT PHOS 15 mMol in NS 250 ML 15 MMOL/250 ML BAG 62.5 MMOL IV (09:33)
[2025-02-01] MEDS: HYDROmorphone INJ 2 MG/ML VIAL 0.5 MG IVP ×2 (12:02→14:32)
--- NOTE | 2025-02-01 12:45 | ESPR_ITS ---
Documentation for date of: 02/01/25 Subjective Subjective Interval history: Ariadna Albarran is a 64-year-old female with a past medical history of CAD s/p multiple stents, PAD, a-fib (not on AC), HTN, T2DM, and esophageal strictures s/p dilatation x2 who presented to the ED on 01/29 for hematochezia. at bedside who helped aid in providing history. Around 3:00 AM, patient woke up due to significant abdominal pain and had bloody bowel movement. Per , bowel content was around toilet bowl and on floor suggesting that patient was incontinent. Denies rectal pain during bowel movements but states that she has had abdominal pain since being released from an outside hospital for DKA and pneumonia requiring mechanical ventilation. However, patient has been having loose bowel movements for approximately one month and lately has been having 10- 12 BMs per day that are foul-smelling. Does not state she was on antibiotics prior to loose bowel movements. Of note, she did undergo a colonoscopy within the last year by Dr. Juárez without significant findings per patient. Admitted for further workup/management of lower GI bleed. 01/30: Seen and examined at bedside in telemetry. No acute overnight events reported. States that she continues to have bloody bowel movements and significant abdominal pain but well-controlled with morphine. Was given 1 unit PRBC day prior and repeat hemoglobin only increased from 8.3 to 8.7. On a.m. labs, hemoglobin 8.5 and will obtain repeat H&H later today to see if patient will require another blood transfusion. Otherwise, plan for colonoscopy today. 01/31: Seen and examined at bedside. Had concerns regarding colonoscopy today as she is clear and drank her whole GoLytely prep. Overnight, passed blood clots so GI specialist recommended H&H every 6 hours. Colonoscopy was significant for 4.5 cm ulcerated region, concerning for ischemic colitis versus adenocarcinoma. Biopsies were taken. EGD was unremarkable. Hemoglobin remained stable, with most recent being 8.7. GI specialist to consult general surgery, Dr Hilario, for possible surgical intervention and keep patient n.p.o. Patient and patient's was updated regarding the plan and they were agreeable to it. Will follow with surgery recommendations. 02/01: Seen and examined at bedside. No acute overnight events reported. Patient reports frustration with current pain regimen and being NPO. Spoke to GI and general surgery, and at this time, recommend to keep n.p.o. with IV antibiotics as there is no surgical indication and will continue to monitor with H&H every 6 hours. Overall, stable but slowly trending downward. A.m. hemoglobin 8.3 and repeat at noon and will follow-up with threshold to transfuse if hemoglobin less than 8. Exam Vital Signs Temp Pulse Resp BP Pulse Ox O2 Del Method O2 Flow Rate 98.4 F 88 18 138/64 H 100 Room Air 2 02/01/25 12:00 02/01/25 12:00 02/01/25 12:00 02/01/25 12:00 02/01/25 12:00 02/01/25 12:00 01/31/25 13:53 Narrative Exam General: AOx3, in mild distress, laying in bed, able to speak full sentences HEENT: NC/AT, mucous membranes moist, bilateral sclera anicteric Cardiovascular: regular rate and rhythm, S1/S2 present, no murmurs appreciated Pulmonary: clear to auscultation bilaterally, no rales/rhonchi/wheezes Abdominal: tenderness to palpation diffusely but L > R, soft, nondistended Musculoskeletal: normal ROM, no peripheral edema Skin: warm and dry, intact, no rashes Neuro: CN II-XII intact, no focal deficits Objective Labs 02/01/25 18:05 02/01/25 06:01 Labs: Laboratory Results - last 24 hr 01/31/25 01/31/25 02/01/25 15:24 19:01 06:01 WBC 5.1 RBC 2.89 L Hgb 9.1 L 8.7 L 8.3 L Hct 28.0 L 26.8 L 25.2 L MCV 87 MCH 28.7 MCHC 32.9 RDW Std Deviation 43.7 Plt Count 576 H D Neut % (Auto) 56 Lymph % (Auto) 31 [place] % (Auto) 11 Eos % (Auto) 1 Baso % (Auto) 0 Neut # (Auto) 2.9 Lymph # (Auto) 1.6 [place] # (Auto) 0.6 Eos # (Auto) 0.1 Baso # (Auto) 0.0 Immature Gran # (Auto) 0.02 H Absolute Nucleated RBC 0.00 Immature Gran % 0 Nucleated RBC % 0 PT 12.0 INR 1.1 APTT 25.8 Sodium 141 Potassium 3.4 D Chloride 111 H Carbon Dioxide 24.5 Anion Gap 6 L BUN 5 L Creatinine 0.5 L Estim Creat Clear Calc 104.7 eGFR > 60 BUN/Creatinine Ratio 10 L Glucose 111 H Calculated Osmolality 279 Calcium 8.2 L Corrected Calcium 8.9 Phosphorus 3.5 Magnesium 2.0 Total Bilirubin 0.2 L AST 13 ALT 20 Alkaline Phosphatase 70 Total Protein 5.2 L Albumin 3.1 L Globulin 2.1 L Albumin/Globulin Ratio 1.5 ABG Interpretation ABG results: 01/29/25 10:34 VBG pH 7.45 VBG pCO2 37 VBG pO2 39 VBG Base Excess 2 Quality Measures Quality Measures VTE prophylaxis (SCDs) Advance care planning discussed with:: patient and spouse Assessment & Plan Assessment Current Active Medications: Generic Name Dose Route Start Last Admin Trade Name Freq PRN Reason Stop Dose Admin Acetaminophen 650 mg 01/29/25 16:25 01/30/25 08:22 Acetaminophen 325 Mg Tablet PO 02/28/25 16:24 650 mg Q6H PRN Administration PAIN OR FEVER > 100.4 Protocol Clonazepam 1 mg 01/29/25 21:00 02/01/25 09:33 Clonazepam 0.5 Mg Tablet PO 02/03/25 20:59 1 mg BID DENISSE Administration Dextrose 25 ml 01/29/25 16:33 Dextrose 50%-Water Inj 50 Ml Syringe IV 02/28/25 16:32 Q15MIN PRN BG 50-70 responsive npo pt Dextrose 50 ml 01/29/25 16:33 Dextrose 50%-Water Inj 50 Ml Syringe IV 02/28/25 16:32 Q15MIN PRN BG <50 OR BG <70 & pt unresponsive Glucagon 1 mg 01/29/25 16:33 Glucagon Inj 1 Mg Vial IM Q15MIN PRN BG <70, and no IV access Hydromorphone HCl 0.5 mg 02/01/25 11:01 02/01/25 12:02 Hydromorphone Inj 2 Mg/Ml Vial IVP 02/06/25 11:00 0.5 mg Q4HR PRN Administration PAIN SCALE 7-10 (Severe Ceftriaxone Sodium/Dextrose 2 gm in 50 mls @ 100 mls/hr 01/29/25 17:32 02/01/25 09:33 Rocephin/D5w 2gm IV 02/05/25 17:31 100 mls/hr QDAY DENISSE Administration Metronidazole 500 mg in 100 mls @ 200 mls/hr 01/29/25 17:33 02/01/25 05:13 Flagyl 500 Mg Iv IV 02/05/25 17:32 200 mls/hr Q8HR DENISSE Administration Lactated Ringer's 1,000 mls @ 75 mls/hr 01/31/25 15:28 01/31/25 22:16 Lactated Ringers IV 02/01/25 15:27 75 mls/hr .[id number] DENISSE Administration Insulin Human Lispro 0 unit 01/29/25 18:00 02/01/25 05:25 Insulin Lispro (Admelog) 1 Unit/0.01 Ml Unit SC 02/28/25 17:59 Not Given Q6HR DENISSE Protocol Morphine Sulfate 2 mg 01/31/25 21:20 02/01/25 09:32 Morphine Sulf Inj 10 Mg/Ml Vial IVP 02/04/25 09:20 2 mg Q4HR PRN Administration PAIN SCALE 7-10 (Severe) Ondansetron HCl 4 mg 01/29/25 16:25 Ondansetron Inj 2 Mg/Ml Inj 2 Ml IV 02/28/25 16:24 Q6H PRN NAUSEA OR VOMITING Protocol Pantoprazole Sodium 40 mg 01/30/25 06:00 02/01/25 09:33 Pantoprazole Inj 40 Mg Vial IVP 03/01/25 05:59 40 mg BID DENISSE Administration Venlafaxine HCl 75 mg 01/29/25 21:00 01/29/25 22:08 Venlafaxine Xr 37.5 Mg Capcr PO 02/28/25 20:59 75 mg HS DENISSE Administration Plan Ariadna Albarran is a 64-year-old female with a past medical history of CAD s/p multiple stents, PAD, a-fib (not on AC), HTN, T2DM, and esophageal strictures s/p dilatation x2 who presented to the ED on 01/29 for hematochezia and admitted for further workup/management of lower GI bleed. #Ischemic colitis vs adenocarcinoma #Hemorrhoids #Diverticulosis #Intractable diarrhea Presented after 1 episode of hematochezia. Noted to have abdominal pain for approximately 2 weeks and loose, nonbloody, foul-smelling bowel movements for 1 month. No antibiotic use prior to 1 month ago but does take PPI at home. Diffuse abdominal tenderness on exam. Colonoscopy 01/31: 4.5 cm ulcerated, severely friable mucosa with contact bleeding and blood clots, suggestive of ischemic colitis vs adenocarcinoma, s/p biopsy. Diverticula on sigmoid and descending colon. EGD 01/31: unremarkable. Per general surgery and GI, will keep patient n.p.o. as meals may worsen ischemia and continue IV antibiotics. ? General surgery, appreciate recommendations ? GI consulted, appreciate recommendations ? Will continue with IV antibiotics and NPO ? LR at 75 cc/hr given NPO status ? H&H every 6 hourly ? Follow-up stool culture ? Pantoprazole 40 mg IV twice daily ? Ceftriaxone 2 g IV daily (01/29-) ? Flagyl 500 mg IV every 8 hours (01/29-) ? Dilaudid 0.5 mg IV every 4 hours as needed for severe pain ? Zofran for nausea #CAD status post multiple stents #PAD (status post stents in bilateral femoral arteries, aorta, and ICA) Home aspirin 81 mg p.o. daily, atorvastatin 80 mg p.o. at bedtime, clopidogrel 75 mg p.o. daily ? Hold home p.o. meds #Atrial fibrillation Currently not on AC as patient states that they have not been able to follow-up with oxygen plant operator, Dr. Dillard, yet. Additionally, we will hold all anticoagulation/antiplatelets given lower GI bleed. Home metoprolol succinate 100 mg p.o. daily #Hypertension Home amlodipine 2.5 mg p.o. at bedtime, lisinopril-HCTZ, metoprolol succinate 100 mg p.o. daily ? Hold home p.o. meds #Type 2 diabetes mellitus, [id number] A1c 12/2024 7.6%, on metformin 750 mg p.o. daily ? SSI every 6 hours ? Hypoglycemia protocol with Accu-Cheks #Thrombocytosis, likely reactive in setting of lower GI bleed ? Continue to monitor Hospital management: Disposition: Colonoscopy showed ischemic colitis, general surgery and GI following Fluids: LR at 75 cc/hr Diet: N.p.o. Lines: PIV's DVT prophylaxis: SCDs given GI bleed GI prophylaxis: Pantoprazole 40 mg IV twice daily CODE STATUS: full code ----- Plan discussed with attending physician Dr. Josue Hough MD PGY-1 Internal Medicine
[2025-02-01 14:35] LABS: Hematocrit 25.4 % (36.0-46.0)
[2025-02-01 14:37] LABS: Hemoglobin 8.3 g/dL (12.0-16.0)
--- NOTE | 2025-02-01 16:04 | PD.SURCONS ---
HPI Consult details Consult date: 02/01/25 Reason for consultation narrative: GI bleed History of present illness: 64-year-old female with past medical history of CAD post multiple stents on Plavix, history of MS, history of CVA, right carotid endarterectomy PAD, A-fib, hypertension, diabetes and esophageal stricture s/p dilation who was admitted with abdominal pain and multiple bloody bowel movements. Patient states that she sustained cardiopulmonary arrest requiring ventilator support for few days few weeks ago. Upon presentation a CT scan was obtained that revealed severe gastritis, nonspecific colitis and proctitis pattern. Patient was evaluated by Dr. Juárez, she underwent an EGD and colonoscopy. Colonoscopy revealed an area of ulceration suspicious for ischemic colitis with blood clot. Patient has not had any bowel movement since yesterday and she has remained hemodynamically stable. Review of Systems Constitutional Constitutional: Denies chills, Denies fever(s) and Reports weight loss Cardiovascular Cardiovascular: Denies chest pain Respiratory Respiratory: Denies cough Gastrointestinal Gastrointestinal: Reports abdominal pain and Reports hematochezia Hematologic/Lymphatic Hematologic/Lymphatic: Denies easy bleeding and Reports easy bruising Past Medical History Surgical History OTHER SURGICAL HX: Cholecystectomy, , tubal ligation, cervical spine fusion, right carotid endarterectomy Social History SMOKING STATUS: Former smoker SUBSTANCE USE: does not use ALCOHOL: Former Meds Home Medications and Allergies Home Medications ?Medication ?Instructions ?Recorded ?Confirmed ?Type amlodipine 2.5 mg tablet 2.5 mg PO HS 09/10/23 01/29/25 History atorvastatin 80 mg tablet 80 mg PO HS 09/10/23 01/29/25 History clopidogrel 75 mg tablet 75 mg PO QDAY 09/10/23 01/29/25 History isosorbide mononitrate 30 mg 30 mg PO QDAY 09/10/23 01/29/25 History tablet,extended release 24 hr aspirin 81 mg tablet,delayed 81 mg PO QDAY 07/07/24 01/29/25 History release dicyclomine 10 mg capsule 10 mg PO QDAY 07/07/24 01/29/25 History metoprolol succinate 100 mg 100 mg PO QDAY 07/07/24 01/29/25 History tablet,extended release 24 hr gabapentin 300 mg capsule 300 mg PO BID 10/19/24 01/29/25 History lisinopril 20 1 tab PO QDAY 10/19/24 01/29/25 History mg-hydrochlorothiazide 12.5 mg tablet metformin 750 mg tablet,extended 750 mg PO QDAY 10/19/24 01/29/25 History release 24 hr venlafaxine 75 mg tablet 75 mg PO QPM 10/19/24 01/29/25 History clonazepam 1 mg tablet 1 mg PO BID 01/29/25 01/29/25 History clopidogrel 75 mg tablet (Plavix) 75 mg PO QDAY 01/29/25 01/29/25 History hydroxyzine HCl 25 mg tablet 25 mg PO QAM 01/29/25 01/29/25 History pantoprazole 40 mg tablet,delayed 40 mg PO QDAY 01/29/25 01/29/25 History release Allergies Allergy/AdvReac Type Severity Reaction Status Date / Time codeine Allergy Severe HIVES Verified 11/15/24 20:07 hydrocodone Allergy Severe RASH AND Verified 11/15/24 20:07 SWELLING Iodinated Contrast Media Allergy Severe Hives Verified 11/15/24 20:07 Exam Vital Signs Temp Pulse Resp BP Pulse Ox O2 Del Method O2 Flow Rate 98.4 F 88 18 138/64 H 100 Room Air 2 02/01/25 12:00 02/01/25 12:00 02/01/25 12:00 02/01/25 12:00 02/01/25 12:00 02/01/25 12:00 01/31/25 13:53 Constitutional Constitutional: no acute distress Routine Abdominal Exam Abdominal: Present soft, normoactive bowel sounds and tenderness (Minimal tenderness to deep palpation, no rebound tenderness or peritonitis at this time); Absent distended Results Results: Laboratory Laboratory results: results reviewed Results: Imaging Imaging narrative: CT scan of abdomen pelvis images reviewed, radiologist interpretation noted Assessment & Plan Additional Assessment Additional comments: 64-year-old female with GI bleed secondary to severe gastritis and ischemic colitis currently patient is hemodynamically stable Plan Give patient bowel rest and antibiotics for ischemic colitis. If symptoms improve surgical intervention would not be indicated. However, if symptoms do not improve and she continues to have bleeding she may require partial colectomy.
--- NOTE | 2025-02-01 16:25 | ESPR_ITS ---
Documentation for date of: 02/01/25 Subjective Subjective Interval history: Hemoglobin hematocrit 8.3 and 25.4 Still oozing blood but no massive clots per rectum Colonoscopy findings discussed with the surgical garment assembly supervisor Dr. Hilario If the patient rebleeds massively she will have to go to the OR There is a segment at 40 cm from the anal verge with a large blood clot and ischemia There is a site of bleeding Rest of the colonoscopy is normal Exam Vital Signs Temp Pulse Resp BP Pulse Ox O2 Del Method O2 Flow Rate 98.4 F 88 18 138/64 H 100 Room Air 2 02/01/25 12:00 02/01/25 12:00 02/01/25 12:00 02/01/25 12:00 02/01/25 12:00 02/01/25 12:00 01/31/25 13:53 Objective Labs 02/01/25 14:11 02/01/25 06:01 Labs: Laboratory Results - last 24 hr 01/31/25 01/31/25 02/01/25 15:24 19:01 06:01 WBC 5.1 RBC 2.89 L Hgb 9.1 L 8.7 L 8.3 L Hct 28.0 L 26.8 L 25.2 L MCV 87 MCH 28.7 MCHC 32.9 RDW Std Deviation 43.7 Plt Count 576 H D Neut % (Auto) 56 Lymph % (Auto) 31 [place] % (Auto) 11 Eos % (Auto) 1 Baso % (Auto) 0 Neut # (Auto) 2.9 Lymph # (Auto) 1.6 [place] # (Auto) 0.6 Eos # (Auto) 0.1 Baso # (Auto) 0.0 Immature Gran # (Auto) 0.02 H Absolute Nucleated RBC 0.00 Immature Gran % 0 Nucleated RBC % 0 PT 12.0 INR 1.1 APTT 25.8 Sodium 141 Potassium 3.4 D Chloride 111 H Carbon Dioxide 24.5 Anion Gap 6 L BUN 5 L Creatinine 0.5 L Estim Creat Clear Calc 104.7 eGFR > 60 BUN/Creatinine Ratio 10 L Glucose 111 H Calculated Osmolality 279 Calcium 8.2 L Corrected Calcium 8.9 Phosphorus 3.5 Magnesium 2.0 Total Bilirubin 0.2 L AST 13 ALT 20 Alkaline Phosphatase 70 Total Protein 5.2 L Albumin 3.1 L Globulin 2.1 L Albumin/Globulin Ratio 1.5 02/01/25 14:11 WBC RBC Hgb 8.3 L Hct 25.4 L MCV MCH MCHC RDW Std Deviation Plt Count Neut % (Auto) Lymph % (Auto) [place] % (Auto) Eos % (Auto) Baso % (Auto) Neut # (Auto) Lymph # (Auto) [place] # (Auto) Eos # (Auto) Baso # (Auto) Immature Gran # (Auto) Absolute Nucleated RBC Immature Gran % Nucleated RBC % PT INR APTT Sodium Potassium Chloride Carbon Dioxide Anion Gap BUN Creatinine Estim Creat Clear Calc eGFR BUN/Creatinine Ratio Glucose Calculated Osmolality Calcium Corrected Calcium Phosphorus Magnesium Total Bilirubin AST ALT Alkaline Phosphatase Total Protein Albumin Globulin Albumin/Globulin Ratio Impressions Impression: Ischemic colitis with large black at 40 cm from the anal verge Bowel rest for additional 48 hours Monitor CBC If patient rebleeds she will need a segmental resection ABG Interpretation ABG results: 01/29/25 10:34 VBG pH 7.45 VBG pCO2 37 VBG pO2 39 VBG Base Excess 2 Assessment & Plan A&P Narrative #Hematochezia abnormal CT scan of the abdomen pelvis showing proctitis and colitis pattern Plan Clear liquid diet GoLytely prep Once clean fiberoptic colonoscopy with possible biopsy possible therapeutic intervention under intravenous moderate sedation Hold Eliquis Will follow the patient Other medical problems include Coronary artery status post PTCA Diabetes mellitus type 1 Essential hypertension Anxiety neurosis Thank you once again for the opportunity to participate in care of this patient Time Spent With Patient Time: Total time spent is greater than 50% in coordination of care (as documented) at patient's floor/unit and/or counseling patient:
[2025-02-01] MEDS: HYDROmorphone INJ 2 MG/ML VIAL 1 MG IVP ×2 (17:52→22:10)
[2025-02-01] MEDS: RINGERS LACTATED 1000 ML 1,000 ML 75 ML IV ×2 (17:53→20:21)
[2025-02-01 18:18] LABS: Hematocrit 26.1 % (36.0-46.0)
[2025-02-01 18:34] LABS: Hemoglobin 8.5 g/dL (12.0-16.0)
--- NOTE | 2025-02-01 19:24 | EKG_ITS ---
[facility] Test Date: 2025-02-01 Pat Name: KD PORRAS [facility] Gender: Female [employer] Worker: GODFREY : 1960 Requested By: Faisal Hough Order Number: [id number] Reading MD: Faisal Hough Measurements Intervals [place] Rate: 110 P: 46 DC: 166 QRS: 65 QRSD: 82 T: 209 QT: 377 QTc: 510 Interpretive Statements SINUS TACHYCARDIA MODERATE T-WAVE ABNORMALITY, CONSIDER ANTEROLATERAL ISCHEMIA Compared to ECG 10/23/2024 14:50:29 Possible ischemia now present Sinus rhythm no longer present T-wave abnormality still present /store/S0/[id number].pdf
[2025-02-01 20:05] LABS: Troponin I < 0.020 ng/mL (0.0-0.045)
[2025-02-01] MEDS: NITROGLYCERIN OINT 2% 1 INCH PACKET TOP (20:12)
[2025-02-02] VITALS (8 sets, daily range): BP systolic 101–155; BP diastolic 49–76; PULSE 85–108; RESP 13–19; TEMP 36.1–36.4; O2SAT 90–97; BMI 29.8
[2025-02-02 00:31] LABS: Hematocrit 26.2 % (36.0-46.0)
[2025-02-02 00:40] LABS: Hemoglobin 8.6 g/dL (12.0-16.0)
[2025-02-02] MEDS: HYDROmorphone INJ 2 MG/ML VIAL 1 MG IVP ×6 (02:14→23:55)
[2025-02-02] MEDS: ONDANSETRON INJ 2 MG/ML INJ 2 ML 4 MG IV (02:20)
[2025-02-02] MEDS: metroNIDAZOLE/NS 500 MG IVPB 500 MG/100 ML BAG 200 MG IV ×3 (06:09→21:13)
[2025-02-02] MEDS: RINGERS LACTATED 1000 ML 1,000 ML 75 ML IV ×2 (06:15→18:07)
--- NOTE | 2025-02-02 07:19 | PC.NURSE ---
191 Dr. Trenton Hough at bedside, pt complaining of chest pain 8 out 10, BP 175/93 HR 116 02 96% RA, Trops, Nitro paste, stat EKG ordered.
[2025-02-02 08:58] LABS: Alanine Aminotransferase 18 U/L (10-49); Albumin, Serum 3.2 gm/dL (3.4-4.8); Albumin/Globulin Ratio 1.4 (1.2-2.2); Alkaline Phosphatase 70 U/L (46-116); Anion Gap 9 (7-16); Aspartate Amino Transferase 12 U/L (0-34); BUN/Creatinine Ratio 13 Ratio (12-20); Bilirubin,Total 0.2 mg/dL (0.3-1.2); Blood Urea Nitrogen < 5 mg/dL (9-23); Calcium 8.6 mg/dL (8.3-10.6); Calcium (Corrected) 9.2 mg/dL (8.5-10.1); Carbon Dioxide 24.6 mMol/L (20.0-31.0); Chloride 108 mMol/L (98-107); Creatinine (Component) 0.4 mg/dL (0.6-1.3); Estimated Creatinine Clearance 131.6 mL/min (>60); Globulin 2.3 gm/dL (2.3-3.5); Glucose 106 mg/dL (74-106); Osmolality,Calculated 280 (275-295); Sodium 142 mMol/L (136-145); Total Protein 5.5 gm/dL (5.7-8.2); eGFR > 60 See Note
[2025-02-02] MEDS: cefTRIAXone/D5w 2gm 2 GM/50 ML BAG IV (09:35)
[2025-02-02] MEDS: PANTOPRAZOLE INJ 40 MG VIAL IVP (09:35)
[2025-02-02] MEDS: clonazePAM 0.5 MG TABLET 1 MG PO ×2 (09:35→20:03)
[2025-02-02 10:18] LABS: Basophils % (Auto) 1 % (0-2.5); Eosinophils % (Auto) 1 % (0-10); Hematocrit 27.8 % (36.0-46.0); Hemoglobin 9.3 g/dL (12.0-16.0); Immature Granulocytes % (Auto) 0 % (0-0); Immature Granulocytes Auto 0.01 Thou/mm3 (0.00-0.00); Lymphocytes # (Auto) 1.6 Thou/mm3 (1.0-4.8); Lymphocytes % (Auto) 34 % (10-50); Mean Corpuscular HGB Conc 33.5 g/dl (31.0-37.0); Mean Corpuscular Hemoglobin 29.7 pg (25.0-35.0); Mean Corpuscular Volume 89 fL (80-100); Monocytes # (Auto) 0.6 Thou/mm3 (0.0-0.8); Monocytes % (Auto) 12 % (0-12); Neutrophils # (Auto) 2.5 Thou/mm3 (1.8-7.7); Neutrophils % (Auto) 53 % (37-80); Nucleated Red Blood Cell % 0 /100 WBC (0); Platelet Count 620 Thou/mm3 (140-440); Red Blood Count 3.13 Miln/mm3 (4.00-5.20); White Blood Count 4.7 Thou/mm3 (3.6-11.0)
[2025-02-02 12:24] LABS: Hematocrit 26.5 % (36.0-46.0)
[2025-02-02 13:15] LABS: Hemoglobin 8.7 g/dL (12.0-16.0)
[2025-02-02 13:16] LABS: Cardiac Risk Estimate 3.4 RATIO (3.7-5.6); Cholesterol 114 mg/dL (132-200); HDL Cholesterol 34 mg/dL (40-60); LDL Cholesterol,Calculated 56 mg/dL (0-130); Triglycerides 119 mg/dL (30-150)
--- NOTE | 2025-02-02 13:26 | ESPR_ITS ---
<Statement entered by Boy Meza MD - 02/02/25 20:21> Patient was seen and examined at the bedside. Patient reported that she has mild abdominal discomfort and wants to eat. We informed the patient that per GI specialist patient needs to be n.p.o. until 24 hours to see clinical improvement and will start clear liq diet tommorrow. cont ceftraxione and flagyl. Surgeon recommended if patient improves medically we might not proceed with surgery at this point. No acute overnight events were reported. Electrolytes were repleted. All labs and orders were reviewed. I saw and examined the patient, and I agree with current management stated by Dr Gianluca MD,PGY1. Plan of care was discussed with the attending physician and resident physician. Disclaimer: Despite multiple revisions, due to the dictation software being used, the document bellow may not be free of grammatical errors including phonetic/typographic errors. However, this does not deter from our commitment to providing health care in the patient's best interest in mind. Dr. Andrew MD, PGY 2 Documentation for date of: 02/02/25 Subjective Subjective Interval history: Ariadna Albarran is a 64-year-old female with a past medical history of CAD s/p multiple stents, PAD, a-fib (not on AC), HTN, T2DM, and esophageal strictures s/p dilatation x2 who presented to the ED on 01/29 for hematochezia. at bedside who helped aid in providing history. Around 3:00 AM, patient woke up due to significant abdominal pain and had bloody bowel movement. Per , bowel content was around toilet bowl and on floor suggesting that patient was incontinent. Denies rectal pain during bowel movements but states that she has had abdominal pain since being released from an outside hospital for DKA and pneumonia requiring mechanical ventilation. However, patient has been having loose bowel movements for approximately one month and lately has been having 10- 12 BMs per day that are foul-smelling. Does not state she was on antibiotics prior to loose bowel movements. Of note, she did undergo a colonoscopy within the last year by Dr. Juárez without significant findings per patient. Admitted for further workup/management of lower GI bleed. 01/30: Seen and examined at bedside in telemetry. No acute overnight events reported. States that she continues to have bloody bowel movements and significant abdominal pain but well-controlled with morphine. Was given 1 unit PRBC day prior and repeat hemoglobin only increased from 8.3 to 8.7. On a.m. labs, hemoglobin 8.5 and will obtain repeat H&H later today to see if patient will require another blood transfusion. Otherwise, plan for colonoscopy today. 01/31: Seen and examined at bedside. Had concerns regarding colonoscopy today as she is clear and drank her whole GoLytely prep. Overnight, passed blood clots so GI specialist recommended H&H every 6 hours. Colonoscopy was significant for 4.5 cm ulcerated region, concerning for ischemic colitis versus adenocarcinoma. Biopsies were taken. EGD was unremarkable. Hemoglobin remained stable, with most recent being 8.7. GI specialist to consult general surgery, Dr Hilario, for possible surgical intervention and keep patient n.p.o. Patient and patient's was updated regarding the plan and they were agreeable to it. Will follow with surgery recommendations. 02/01: Seen and examined at bedside. No acute overnight events reported. Patient reports frustration with current pain regimen and being NPO. Spoke to GI and general surgery, and at this time, recommend to keep n.p.o. with IV antibiotics as there is no surgical indication and will continue to monitor with H&H every 6 hours. Overall, stable but slowly trending downward. A.m. hemoglobin 8.3 and repeat at noon and will follow-up with threshold to transfuse if hemoglobin less than 8. 02/02: Seen and examined at bedside. No acute overnight events reported. Endorsed chest pressure that was similar to what she felt from prior ACS events but chest tender to palpation. Troponin and EKG unremarkable. States that she still has abdominal pain but has not had any bloody BMs since she was prepping with GoLytely. Hemoglobin has remained stable and will continue ceftriaxone and Flagyl. GI and general surgery following. Per GI, recommends bowel rest until tonight and will start clear liquid diet for breakfast tomorrow. Exam Vital Signs Temp Pulse Resp BP Pulse Ox O2 Del Method O2 Flow Rate 97.5 F 85 17 111/49 L 94 L Room Air 2 02/02/25 08:00 02/02/25 08:00 02/02/25 08:00 02/02/25 08:00 02/02/25 08:00 02/02/25 08:00 01/31/25 13:53 Narrative Exam General: AOx3, in mild distress, laying in bed, able to speak full sentences HEENT: NC/AT, mucous membranes moist, bilateral sclera anicteric Cardiovascular: regular rate and rhythm, S1/S2 present, no murmurs appreciated Pulmonary: clear to auscultation bilaterally, no rales/rhonchi/wheezes Abdominal: tenderness to palpation diffusely, soft, nondistended Musculoskeletal: normal ROM, no peripheral edema Skin: warm and dry, intact, no rashes Neuro: CN II-XII intact, no focal deficits Objective Labs 02/03/25 05:28 02/03/25 05:28 Labs: Laboratory Results - last 24 hr 02/01/25 02/01/25 02/01/25 14:11 18:05 19:40 WBC RBC Hgb 8.3 L 8.5 L Hct 25.4 L 26.1 L MCV MCH MCHC RDW Std Deviation Plt Count Neut % (Auto) Lymph % (Auto) [place] % (Auto) Eos % (Auto) Baso % (Auto) Neut # (Auto) Lymph # (Auto) [place] # (Auto) Eos # (Auto) Baso # (Auto) Immature Gran # (Auto) Absolute Nucleated RBC Immature Gran % Nucleated RBC % Sodium Potassium Chloride Carbon Dioxide Anion Gap BUN Creatinine Estim Creat Clear Calc eGFR BUN/Creatinine Ratio Glucose Calculated Osmolality Calcium Corrected Calcium Magnesium Total Bilirubin AST ALT Alkaline Phosphatase Troponin I < 0.020 Total Protein Albumin Globulin Albumin/Globulin Ratio Triglycerides Cholesterol LDL Cholesterol, Calc HDL Cholesterol Cholesterol/HDL Ratio 02/02/25 02/02/25 02/02/25 00:20 07:55 09:38 WBC 4.7 RBC 3.13 L Hgb 8.6 L 9.3 L Hct 26.2 L 27.8 L MCV 89 MCH 29.7 MCHC 33.5 RDW Std Deviation 45.0 Plt Count 620 H D Neut % (Auto) 53 Lymph % (Auto) 34 [place] % (Auto) 12 Eos % (Auto) 1 Baso % (Auto) 1 Neut # (Auto) 2.5 Lymph # (Auto) 1.6 [place] # (Auto) 0.6 Eos # (Auto) 0.0 Baso # (Auto) 0.0 Immature Gran # (Auto) 0.01 H Absolute Nucleated RBC 0.00 Immature Gran % 0 Nucleated RBC % 0 Sodium 142 Potassium 4.0 D Chloride 108 H Carbon Dioxide 24.6 Anion Gap 9 BUN < 5 L Creatinine 0.4 L Estim Creat Clear Calc 131.6 eGFR > 60 BUN/Creatinine Ratio 13 Glucose 106 Calculated Osmolality 280 Calcium 8.6 Corrected Calcium 9.2 Magnesium 2.0 Total Bilirubin 0.2 L AST 12 ALT 18 Alkaline Phosphatase 70 Troponin I Total Protein 5.5 L Albumin 3.2 L Globulin 2.3 Albumin/Globulin Ratio 1.4 Triglycerides 119 Cholesterol 114 L LDL Cholesterol, Calc 56 HDL Cholesterol 34 L Cholesterol/HDL Ratio 3.4 L 02/02/25 12:03 WBC RBC Hgb 8.7 L Hct 26.5 L MCV MCH MCHC RDW Std Deviation Plt Count Neut % (Auto) Lymph % (Auto) [place] % (Auto) Eos % (Auto) Baso % (Auto) Neut # (Auto) Lymph # (Auto) [place] # (Auto) Eos # (Auto) Baso # (Auto) Immature Gran # (Auto) Absolute Nucleated RBC Immature Gran % Nucleated RBC % Sodium Potassium Chloride Carbon Dioxide Anion Gap BUN Creatinine Estim Creat Clear Calc eGFR BUN/Creatinine Ratio Glucose Calculated Osmolality Calcium Corrected Calcium Magnesium Total Bilirubin AST ALT Alkaline Phosphatase Troponin I Total Protein Albumin Globulin Albumin/Globulin Ratio Triglycerides Cholesterol LDL Cholesterol, Calc HDL Cholesterol Cholesterol/HDL Ratio ABG Interpretation ABG results: 01/29/25 10:34 VBG pH 7.45 VBG pCO2 37 VBG pO2 39 VBG Base Excess 2 Quality Measures Quality Measures VTE prophylaxis (SCDs) Advance care planning discussed with:: patient and spouse Assessment & Plan Assessment Current Active Medications: Generic Name Dose Route Start Last Admin Trade Name Des PRN Reason Stop Dose Admin Acetaminophen 650 mg 01/29/25 16:25 01/30/25 08:22 Acetaminophen 325 Mg Tablet PO 02/28/25 16:24 650 mg Q6H PRN Administration PAIN OR FEVER > 100.4 Protocol Clonazepam 1 mg 01/29/25 21:00 02/02/25 09:35 Clonazepam 0.5 Mg Tablet PO 02/03/25 20:59 1 mg BID DENISSE Administration Dextrose 25 ml 01/29/25 16:33 Dextrose 50%-Water Inj 50 Ml Syringe IV 02/28/25 16:32 Q15MIN PRN BG 50-70 responsive npo pt Dextrose 50 ml 01/29/25 16:33 Dextrose 50%-Water Inj 50 Ml Syringe IV 02/28/25 16:32 Q15MIN PRN BG <50 OR BG <70 & pt unresponsive Glucagon 1 mg 01/29/25 16:33 Glucagon Inj 1 Mg Vial IM Q15MIN PRN BG <70, and no IV access Hydromorphone HCl 1 mg 02/01/25 18:00 02/02/25 11:50 Hydromorphone Inj 2 Mg/Ml Vial IVP 02/06/25 17:59 1 mg Q4HR PRN Administration PAIN SCALE 7-10(SEVERE) Ceftriaxone Sodium/Dextrose 2 gm in 50 mls @ 100 mls/hr 01/29/25 17:32 02/02/25 09:35 Rocephin/D5w 2gm IV 02/05/25 17:31 100 mls/hr QDAY DENISSE Administration Metronidazole 500 mg in 100 mls @ 200 mls/hr 01/29/25 17:33 02/02/25 06:09 Flagyl 500 Mg Iv IV 02/05/25 17:32 200 mls/hr Q8HR DENISSE Administration Lactated Ringer's 1,000 mls @ 75 mls/hr 01/31/25 15:28 02/02/25 06:15 Lactated Ringers IV 02/02/25 15:27 75 mls/hr .[id number] DENISSE Administration Insulin Human Lispro 0 unit 01/29/25 18:00 02/02/25 12:00 Insulin Lispro (Admelog) 1 Unit/0.01 Ml Unit SC 02/28/25 17:59 Not Given Q6HR DENISSE Protocol Nitroglycerin 1 inch 02/01/25 20:29 Nitroglycerin Oint 2% 1 Inch Packet TOP 03/03/25 20:59 BID PRN chest pain, Hold If SBP 180mmH Ondansetron HCl 4 mg 01/29/25 16:25 02/02/25 02:20 Ondansetron Inj 2 Mg/Ml Inj 2 Ml IV 02/28/25 16:24 4 mg Q6H PRN Administration NAUSEA OR VOMITING Protocol Pantoprazole Sodium 40 mg 02/02/25 21:00 Pantoprazole 40 Mg Tablet PO 03/04/25 20:59 BID DENISSE Protocol Venlafaxine HCl 75 mg 01/29/25 21:00 03/06/25 22:08 Venlafaxine Xr 37.5 Mg Capcr PO 02/28/25 20:59 75 mg HS DENISSE Administration Plan Ariadna Albarran is a 64-year-old female with a past medical history of CAD s/p multiple stents, PAD, a-fib (not on AC), HTN, T2DM, and esophageal strictures s/p dilatation x2 who presented to the ED on 01/29 for hematochezia and admitted for further workup/management of lower GI bleed. #Ischemic colitis vs adenocarcinoma #Hemorrhoids #Diverticulosis #Intractable diarrhea Presented after 1 episode of hematochezia. Noted to have abdominal pain for approximately 2 weeks and loose, nonbloody, foul-smelling bowel movements for 1 month. No antibiotic use prior to 1 month ago but does take PPI at home. Diffuse abdominal tenderness on exam. Colonoscopy 01/31: 4.5 cm ulcerated, severely friable mucosa with contact bleeding and blood clots, suggestive of ischemic colitis vs adenocarcinoma, s/p biopsy. Diverticula on sigmoid and descending colon. EGD 01/31: unremarkable. Per general surgery and GI, will keep patient n.p.o. as meals may worsen ischemia and continue IV antibiotics. ? General surgery, appreciate recommendations ? GI consulted, appreciate recommendations ? Bowel rest/NPO until 02/02 and clear liquid diet tomorrow morning ? Ceftriaxone 2 g IV daily (01/29-) ? Flagyl 500 mg IV every 8 hours (01/29-) ? LR at 75 cc/hr given NPO status ? Follow-up stool culture ? Dilaudid 1 mg IV every 4 hours as needed for severe pain #CAD status post multiple stents #PAD (status post stents in bilateral femoral arteries, aorta, and ICA) Home aspirin 81 mg p.o. daily, atorvastatin 80 mg p.o. at bedtime, clopidogrel 75 mg p.o. daily Lipid panel shows TGL 119, cholesterol 114, LDL 56, HDL 34 ? Hold home p.o. meds #Atrial fibrillation Currently not on AC as patient states that they have not been able to follow-up with supervisor grower, Dr. Dillard, yet. Additionally, we will hold all anticoagulation/antiplatelets given lower GI bleed. Home metoprolol succinate 100 mg p.o. daily #Hypertension Home amlodipine 2.5 mg p.o. at bedtime, lisinopril-HCTZ, metoprolol succinate 100 mg p.o. daily ? Hold home p.o. meds #Type 2 diabetes mellitus, [id number] A1c 12/2024 7.6%, on metformin 750 mg p.o. daily ? SSI every 6 hours ? Hypoglycemia protocol with Accu-Cheks #Thrombocytosis, likely reactive in setting of lower GI bleed ? Continue to monitor Hospital management: Disposition: Colonoscopy showed ischemic colitis, general surgery and GI following Fluids: LR at 75 cc/hr Diet: N.p.o. Lines: PIV's DVT prophylaxis: SCDs given GI bleed GI prophylaxis: Pantoprazole 40 mg IV twice daily CODE STATUS: full code ----- Plan discussed with attending physician Dr. Salas and senior resident physician Dr. Andrew Hough MD PGY-1 Internal Medicine Attending Provider Attestation/Addendum I have discussed and was present for the essential components of the history, physical examination, diagnosis, and treatment plan with the resident. I agree with the patient's care as documented by the resident and amended herein by me. Eldon Salas DO. Although this document has been carefully reviewed, there may still be some phonetic and other typographical errors. These errors are purely grammatical due to imperfections in the software program and should not be construed in any way to compromise the substance of the patient's medical care during this visit.
[2025-02-02 18:56] LABS: Hematocrit 23.3 % (36.0-46.0); Hemoglobin 7.8 g/dL (12.0-16.0)
--- NOTE | 2025-02-02 19:32 | PC.NURSE ---
upon shift change, day shift nurse informed me of patient wanting to leave AMA,pt is alert and oriented, pt educated on the reason of their stay but still wanting to speak to providers, providers called stated will come to bedside.
[2025-02-02] MEDS: PANTOPRAZOLE 40 MG TABLET PO (20:03)
--- NOTE | 2025-02-02 22:10 | ESPR_ITS ---
Documentation for date of: 02/02/25 Subjective Subjective Interval history: 64 years old female evaluated hemoglobin hematocrit is trending down at 7.8 and 23.7 but no signs of any active case discussed with the internal medicine team Start clear liquid diet in the morning Exam Vital Signs Temp Pulse Resp BP Pulse Ox O2 Del Method O2 Flow Rate 97.1 F 87 13 155/76 H 97 Room Air 2 02/02/25 19:37 02/02/25 20:00 02/02/25 19:37 02/02/25 19:37 02/02/25 19:37 02/02/25 19:37 01/31/25 13:53 Routine Respiratory Exam Comments: Normal to auscultation Routine Abdominal Exam Comments: Soft nontender Objective Labs 02/02/25 18:09 02/02/25 07:55 Labs: Laboratory Results - last 24 hr 02/02/25 02/02/25 02/02/25 00:20 07:55 09:38 WBC 4.7 RBC 3.13 L Hgb 8.6 L 9.3 L Hct 26.2 L 27.8 L MCV 89 MCH 29.7 MCHC 33.5 RDW Std Deviation 45.0 Plt Count 620 H D Neut % (Auto) 53 Lymph % (Auto) 34 [place] % (Auto) 12 Eos % (Auto) 1 Baso % (Auto) 1 Neut # (Auto) 2.5 Lymph # (Auto) 1.6 [place] # (Auto) 0.6 Eos # (Auto) 0.0 Baso # (Auto) 0.0 Immature Gran # (Auto) 0.01 H Absolute Nucleated RBC 0.00 Immature Gran % 0 Nucleated RBC % 0 Sodium 142 Potassium 4.0 D Chloride 108 H Carbon Dioxide 24.6 Anion Gap 9 BUN < 5 L Creatinine 0.4 L Estim Creat Clear Calc 131.6 eGFR > 60 BUN/Creatinine Ratio 13 Glucose 106 Calculated Osmolality 280 Calcium 8.6 Corrected Calcium 9.2 Magnesium 2.0 Total Bilirubin 0.2 L AST 12 ALT 18 Alkaline Phosphatase 70 Total Protein 5.5 L Albumin 3.2 L Globulin 2.3 Albumin/Globulin Ratio 1.4 Triglycerides 119 Cholesterol 114 L LDL Cholesterol, Calc 56 HDL Cholesterol 34 L Cholesterol/HDL Ratio 3.4 L 02/02/25 02/02/25 12:03 18:09 WBC RBC Hgb 8.7 L 7.8 L Hct 26.5 L 23.3 L MCV MCH MCHC RDW Std Deviation Plt Count Neut % (Auto) Lymph % (Auto) [place] % (Auto) Eos % (Auto) Baso % (Auto) Neut # (Auto) Lymph # (Auto) [place] # (Auto) Eos # (Auto) Baso # (Auto) Immature Gran # (Auto) Absolute Nucleated RBC Immature Gran % Nucleated RBC % Sodium Potassium Chloride Carbon Dioxide Anion Gap BUN Creatinine Estim Creat Clear Calc eGFR BUN/Creatinine Ratio Glucose Calculated Osmolality Calcium Corrected Calcium Magnesium Total Bilirubin AST ALT Alkaline Phosphatase Total Protein Albumin Globulin Albumin/Globulin Ratio Triglycerides Cholesterol LDL Cholesterol, Calc HDL Cholesterol Cholesterol/HDL Ratio Impressions Impression: Bleeding site at 40 cm from the anal verge in the region of sigmoid colon already tattooed in the setting of ischemic colitis with presence of large blood clot Although patient's hemoglobin is trending downward but no signs of any active bleeding it may just be if collaboration Plan Clear liquid diet starting a.m. ABG Interpretation ABG results: 01/29/25 10:34 VBG pH 7.45 VBG pCO2 37 VBG pO2 39 VBG Base Excess 2 Assessment & Plan A&P Narrative #Hematochezia abnormal CT scan of the abdomen pelvis showing proctitis and colitis pattern Plan Clear liquid diet GoLytely prep Once clean fiberoptic colonoscopy with possible biopsy possible therapeutic intervention under intravenous moderate sedation Hold Eliquis Will follow the patient Other medical problems include Coronary artery status post PTCA Diabetes mellitus type 1 Essential hypertension Anxiety neurosis Thank you once again for the opportunity to participate in care of this patient Time Spent With Patient Time: Total time spent is greater than 50% in coordination of care (as documented) at patient's floor/unit and/or counseling patient:
[2025-02-03] VITALS: BP 135/54; PULSE 86; PULSE 88; RESP 14; TEMP 36.1; O2SAT 96
[2025-02-03] MEDS: HYDROmorphone INJ 2 MG/ML VIAL 1 MG IVP ×6 (03:58→23:59)
[2025-02-03 04:00] VITALS: BP 108/45; PULSE 71; PULSE 82; RESP 15; TEMP 36.1; O2SAT 97
[2025-02-03] MEDS: metroNIDAZOLE/NS 500 MG IVPB 500 MG/100 ML BAG 200 MG IV ×3 (05:07→21:13)
[2025-02-03 06:05] LABS: Basophils % (Auto) 1 % (0-2.5); Eosinophils # (Auto) 0.1 Thou/mm3 (0.0-0.5); Eosinophils % (Auto) 1 % (0-10); Hematocrit 27.5 % (36.0-46.0); Immature Granulocytes % (Auto) 0 % (0-0); Immature Granulocytes Auto 0.02 Thou/mm3 (0.00-0.00); Lymphocytes # (Auto) 1.6 Thou/mm3 (1.0-4.8); Lymphocytes % (Auto) 35 % (10-50); Mean Corpuscular HGB Conc 32.4 g/dl (31.0-37.0); Mean Corpuscular Hemoglobin 29.1 pg (25.0-35.0); Mean Corpuscular Volume 90 fL (80-100); Monocytes # (Auto) 0.6 Thou/mm3 (0.0-0.8); Monocytes % (Auto) 12 % (0-12); Neutrophils # (Auto) 2.4 Thou/mm3 (1.8-7.7); Neutrophils % (Auto) 51 % (37-80); Nucleated Red Blood Cell % 0 /100 WBC (0); Platelet Count 657 Thou/mm3 (140-440); RDW Standard Deviation 44.8 fL (36.4-46.3); Red Blood Count 3.06 Miln/mm3 (4.00-5.20); White Blood Count 4.6 Thou/mm3 (3.6-11.0)
[2025-02-03 06:15] LABS: Hemoglobin 8.9 g/dL (12.0-16.0)
[2025-02-03 06:26] LABS: Alanine Aminotransferase 14 U/L (10-49); Albumin, Serum 3.3 gm/dL (3.4-4.8); Albumin/Globulin Ratio 1.4 (1.2-2.2); Alkaline Phosphatase 69 U/L (46-116); Anion Gap 8 (7-16); Aspartate Amino Transferase 12 U/L (0-34); BUN/Creatinine Ratio 10 Ratio (12-20); Bilirubin,Total 0.3 mg/dL (0.3-1.2); Blood Urea Nitrogen < 5 mg/dL (9-23); Calcium 8.6 mg/dL (8.3-10.6); Calcium (Corrected) 9.2 mg/dL (8.5-10.1); Carbon Dioxide 27.3 mMol/L (20.0-31.0); Chloride 107 mMol/L (98-107); Creatinine (Component) 0.5 mg/dL (0.6-1.3); Estimated Creatinine Clearance 101.6 mL/min (>60); Globulin 2.3 gm/dL (2.3-3.5); Glucose 98 mg/dL (74-106); Magnesium 1.9 mg/dL (1.6-2.6); Osmolality,Calculated 280 (275-295); Phosphorous 3.3 mg/dL (2.4-5.1); Potassium 3.7 mMol/L (3.4-5.1); Sodium 142 mMol/L (136-145); Total Protein 5.6 gm/dL (5.7-8.2); eGFR > 60 See Note
[2025-02-03 08:00] VITALS: BP 117/53; PULSE 81; PULSE 90; RESP 18; TEMP 36.7; O2SAT 95
[2025-02-03] MEDS: cefTRIAXone/D5w 2gm 2 GM/50 ML BAG IV (08:02)
[2025-02-03] MEDS: PANTOPRAZOLE 40 MG TABLET PO ×2 (08:02→21:13)
[2025-02-03] MEDS: clonazePAM 0.5 MG TABLET 1 MG PO ×2 (08:45→21:13)
[2025-02-03] MEDS: Magnesium Sulfate 1 gm Ivpb 1 GM/100 ML BAG IV (08:45)
[2025-02-03] MEDS: RINGERS LACTATED 1000 ML 1,000 ML 75 ML IV (09:51)
[2025-02-03 12:00] VITALS: BP 126/59; PULSE 80; PULSE 85; RESP 18; TEMP 36.1; O2SAT 97
[2025-02-03] MEDS: INSULIN LISPRO (AdmeLOG) 1 UNIT/0.01 ML UNIT SC ×3 (12:13→21:13)
--- NOTE | 2025-02-03 13:55 | ESPR_ITS ---
<Statement entered by Boy Meza MD - 02/03/25 16:31> Patient was seen and examined at the bedside. Overnight patient received pain medication for abdominal discomfort. Trazodone was started for insomnia. Hemoglobin stable at 8.9. GI specialist recommended to advance her diet to low residue diet and monitor for tolerance. Will continue with Rocephin and Flagyl. All labs and orders were reviewed. I saw and examined the patient, and I agree with current management stated by Dr Gianluca MD,PGY1. Plan of care was discussed with the attending physician and resident physician. Disclaimer: Despite multiple revisions, due to the dictation software being used, the document bellow may not be free of grammatical errors including phonetic/typographic errors. However, this does not deter from our commitment to providing health care in the patient's best interest in mind. Dr. Susana MD, PGY 2 Documentation for date of: 02/03/25 Subjective Subjective Interval history: Ariadna Albarran is a 64-year-old female with a past medical history of CAD s/p multiple stents, PAD, a-fib (not on AC), HTN, T2DM, and esophageal strictures s/p dilatation x2 who presented to the ED on 01/29 for hematochezia. at bedside who helped aid in providing history. Around 3:00 AM, patient woke up due to significant abdominal pain and had bloody bowel movement. Per , bowel content was around toilet bowl and on floor suggesting that patient was incontinent. Denies rectal pain during bowel movements but states that she has had abdominal pain since being released from an outside hospital for DKA and pneumonia requiring mechanical ventilation. However, patient has been having loose bowel movements for approximately one month and lately has been having 10- 12 BMs per day that are foul-smelling. Does not state she was on antibiotics prior to loose bowel movements. Of note, she did undergo a colonoscopy within the last year by Dr. Juárez without significant findings per patient. Admitted for further workup/management of lower GI bleed. 01/30: Seen and examined at bedside in telemetry. No acute overnight events reported. States that she continues to have bloody bowel movements and significant abdominal pain but well-controlled with morphine. Was given 1 unit PRBC day prior and repeat hemoglobin only increased from 8.3 to 8.7. On a.m. labs, hemoglobin 8.5 and will obtain repeat H&H later today to see if patient will require another blood transfusion. Otherwise, plan for colonoscopy today. 01/31: Seen and examined at bedside. Had concerns regarding colonoscopy today as she is clear and drank her whole GoLytely prep. Overnight, passed blood clots so GI specialist recommended H&H every 6 hours. Colonoscopy was significant for 4.5 cm ulcerated region, concerning for ischemic colitis versus adenocarcinoma. Biopsies were taken. EGD was unremarkable. Hemoglobin remained stable, with most recent being 8.7. GI specialist to consult general surgery, Dr Hilario, for possible surgical intervention and keep patient n.p.o. Patient and patient's was updated regarding the plan and they were agreeable to it. Will follow with surgery recommendations. 02/01: Seen and examined at bedside. No acute overnight events reported. Patient reports frustration with current pain regimen and being NPO. Spoke to GI and general surgery, and at this time, recommend to keep n.p.o. with IV antibiotics as there is no surgical indication and will continue to monitor with H&H every 6 hours. Overall, stable but slowly trending downward. A.m. hemoglobin 8.3 and repeat at noon and will follow-up with threshold to transfuse if hemoglobin less than 8. 02/02: Seen and examined at bedside. No acute overnight events reported. Endorsed chest pressure that was similar to what she felt from prior ACS events but chest tender to palpation. Troponin and EKG unremarkable. States that she still has abdominal pain but has not had any bloody BMs since she was prepping with GoLytely. Hemoglobin has remained stable and will continue ceftriaxone and Flagyl. GI and general surgery following. Per GI, recommends bowel rest until tonight and will start clear liquid diet for breakfast tomorrow. 02/03: Seen and examined at bedside. No acute overnight events reported. However, patient does state that she becomes very anxious at times due to stress from life outside of the hospital as well as her most recent and current health related issues. States that her home venlafaxine and clonazepam did not help. Will start trazodone tonight and see how patient responds. Otherwise, she was started on clear liquid diet this morning and does not endorse significant abdominal pain. Hemoglobin remained stable and will discontinue every 6 hour checks and will just check daily and advance diet as GI recommends to low fiber. Exam Vital Signs Temp Pulse Resp BP Pulse Ox O2 Del Method O2 Flow Rate 98.0 F 81 18 117/53 L 95 Room Air 2 02/03/25 08:00 02/03/25 08:00 02/03/25 08:00 02/03/25 08:00 02/03/25 08:00 02/03/25 08:00 01/31/25 13:53 Narrative Exam General: AOx3, in mild distress, laying in bed, able to speak full sentences HEENT: NC/AT, mucous membranes moist, bilateral sclera anicteric Cardiovascular: regular rate and rhythm, S1/S2 present, no murmurs appreciated Pulmonary: clear to auscultation bilaterally, no rales/rhonchi/wheezes Abdominal: Mild tenderness to palpation diffusely, soft, nondistended Musculoskeletal: normal ROM, no peripheral edema Skin: warm and dry, intact, no rashes Neuro: CN II-XII intact, no focal deficits Objective Labs 02/03/25 05:28 02/03/25 05:28 Labs: Laboratory Results - last 24 hr 02/02/25 02/03/25 18:09 05:28 WBC 4.6 RBC 3.06 L Hgb 7.8 L 8.9 L Hct 23.3 L 27.5 L MCV 90 MCH 29.1 MCHC 32.4 RDW Std Deviation 44.8 Plt Count 657 H D Neut % (Auto) 51 Lymph % (Auto) 35 Bremer % (Auto) 12 Eos % (Auto) 1 Baso % (Auto) 1 Neut # (Auto) 2.4 Lymph # (Auto) 1.6 Bremer # (Auto) 0.6 Eos # (Auto) 0.1 Baso # (Auto) 0.0 Immature Gran # (Auto) 0.02 H Absolute Nucleated RBC 0.00 Immature Gran % 0 Nucleated RBC % 0 Sodium 142 Potassium 3.7 Chloride 107 Carbon Dioxide 27.3 Anion Gap 8 BUN < 5 L Creatinine 0.5 L Estim Creat Clear Calc 101.6 eGFR > 60 BUN/Creatinine Ratio 10 L Glucose 98 Calculated Osmolality 280 Calcium 8.6 Corrected Calcium 9.2 Phosphorus 3.3 Magnesium 1.9 Total Bilirubin 0.3 AST 12 ALT 14 Alkaline Phosphatase 69 Total Protein 5.6 L Albumin 3.3 L Globulin 2.3 Albumin/Globulin Ratio 1.4 ABG Interpretation ABG results: 01/29/25 10:34 VBG pH 7.45 VBG pCO2 37 VBG pO2 39 VBG Base Excess 2 Quality Measures Quality Measures VTE prophylaxis (SCDs) Advance care planning discussed with:: patient Assessment & Plan Assessment Current Active Medications: Generic Name Dose Route Start Last Admin Trade Name Freq PRN Reason Stop Dose Admin Acetaminophen 650 mg 01/29/25 16:25 01/30/25 08:22 Acetaminophen 325 Mg Tablet PO 02/28/25 16:24 650 mg Q6H PRN Administration PAIN OR FEVER > 100.4 Protocol Clonazepam 1 mg 01/29/25 21:00 02/03/25 08:45 Clonazepam 0.5 Mg Tablet PO 02/03/25 20:59 1 mg BID DENISSE Administration Dextrose 25 ml 01/29/25 16:33 Dextrose 50%-Water Inj 50 Ml Syringe IV 02/28/25 16:32 Q15MIN PRN BG 50-70 responsive npo pt Dextrose 50 ml 01/29/25 16:33 Dextrose 50%-Water Inj 50 Ml Syringe IV 02/28/25 16:32 Q15MIN PRN BG <50 OR BG <70 & pt unresponsive Glucagon 1 mg 01/29/25 16:33 Glucagon Inj 1 Mg Vial IM Q15MIN PRN BG <70, and no IV access Hydromorphone HCl 1 mg 02/01/25 18:00 02/03/25 12:12 Hydromorphone Inj 2 Mg/Ml Vial IVP 02/06/25 17:59 1 mg Q4HR PRN Administration PAIN SCALE 7-10(SEVERE) Ceftriaxone Sodium/Dextrose 2 gm in 50 mls @ 100 mls/hr 01/29/25 17:32 02/03/25 08:02 Rocephin/D5w 2gm IV 02/05/25 17:31 100 mls/hr QDAY DENISSE Administration Metronidazole 500 mg in 100 mls @ 200 mls/hr 01/29/25 17:33 02/03/25 13:39 Flagyl 500 Mg Iv IV 02/05/25 17:32 200 mls/hr Q8HR DENISSE Administration Lactated Ringer's 1,000 mls @ 75 mls/hr 02/02/25 17:35 02/03/25 09:51 Lactated Ringers IV 03/04/25 17:34 75 mls/hr .[id number] DENISSE Administration Insulin Human Lispro 0 unit 01/29/25 18:00 02/03/25 12:13 Insulin Lispro (Admelog) 1 Unit/0.01 Ml Unit SC 02/28/25 17:59 3 unit Q6HR DENISSE Administration Protocol Nitroglycerin 1 inch 02/01/25 20:29 Nitroglycerin Oint 2% 1 Inch Packet TOP 03/03/25 20:59 BID PRN chest pain, Hold If SBP 180mmH Ondansetron HCl 4 mg 01/29/25 16:25 02/02/25 02:20 Ondansetron Inj 2 Mg/Ml Inj 2 Ml IV 02/28/25 16:24 4 mg Q6H PRN Administration NAUSEA OR VOMITING Protocol Pantoprazole Sodium 40 mg 02/02/25 21:00 02/03/25 08:02 Pantoprazole 40 Mg Tablet PO 03/04/25 20:59 40 mg BID DENISSE Administration Protocol Trazodone HCl 50 mg 02/03/25 21:00 Trazodone Hcl 50 Mg Tablet PO 03/05/25 20:59 HS DENISSE Plan Ariadna Albarran is a 64-year-old female with a past medical history of CAD s/p multiple stents, PAD, a-fib (not on AC), HTN, T2DM, and esophageal strictures s/p dilatation x2 who presented to the ED on 01/29 for hematochezia and admitted for further workup/management of lower GI bleed. #Ischemic colitis vs adenocarcinoma #Hemorrhoids #Diverticulosis #Intractable diarrhea Presented after 1 episode of hematochezia. Noted to have abdominal pain for approximately 2 weeks and loose, nonbloody, foul-smelling bowel movements for 1 month. No antibiotic use prior to 1 month ago but does take PPI at home. Diffuse abdominal tenderness on exam. Colonoscopy 01/31: 4.5 cm ulcerated, severely friable mucosa with contact bleeding and blood clots, suggestive of ischemic colitis vs adenocarcinoma, s/p biopsy. Diverticula on sigmoid and descending colon. EGD 01/31: unremarkable. Per general surgery and GI, originally kept NPO as meals may worsen ischemia for couple of days, but have since restarted diet. ? General surgery, appreciate recommendations ? GI consulted, appreciate recommendations ? Clear liquid diet in the morning, advance to low fiber for dinner ? IVF DC'd given patient is now eating ? Ceftriaxone 2 g IV daily (01/29-) ? Flagyl 500 mg IV every 8 hours (01/29-) ? Follow-up stool culture ? Dilaudid 1 mg IV every 4 hours as needed for severe pain #CAD status post multiple stents #PAD (status post stents in bilateral femoral arteries, aorta, and ICA) Home aspirin 81 mg p.o. daily, atorvastatin 80 mg p.o. at bedtime, clopidogrel 75 mg p.o. daily Lipid panel shows TGL 119, cholesterol 114, LDL 56, HDL 34 ? Hold home p.o. meds #Atrial fibrillation Currently not on AC as patient states that they have not been able to follow-up with [employer], Dr. Dillard, yet. Additionally, we will hold all anticoagulation/antiplatelets given lower GI bleed. Home metoprolol succinate 100 mg p.o. daily #Hypertension Home amlodipine 2.5 mg p.o. at bedtime, lisinopril-HCTZ, metoprolol succinate 100 mg p.o. daily ? Hold home p.o. meds #Type 2 diabetes mellitus, [id number] A1c 12/2024 7.6%, on metformin 750 mg p.o. daily ? SSI step 2 every 6 hours -> ACHS ? Hypoglycemia protocol with Accu-Cheks #Thrombocytosis, likely reactive in setting of lower GI bleed ? Continue to monitor #Anxiety ? Trazodone Hospital management: Disposition: Colonoscopy showed ischemic colitis, general surgery and GI following and advancing diet as tolerated Fluids: DC'd after starting diet Diet: low fiber diet, advancing as tolerated Lines: PIV's DVT prophylaxis: SCDs given GI bleed GI prophylaxis: Pantoprazole 40 mg IV twice daily CODE STATUS: full code ----- Plan discussed with attending physician Dr. Salas and senior resident physician Dr. Susana Hough MD PGY-1 Internal Medicine Attending Provider Attestation/Addendum I have discussed and was present for the essential components of the history, physical examination, diagnosis, and treatment plan with the resident. I agree with the patient's care as documented by the resident and amended herein by me. Eldon Salas DO. Patient seen and evaluated this AM. Vital signs stable, patient afebrile overnight, no bowel movements reported. Significant labs include a stable hemoglobin of 8.9, platelet count 652, BMP largely unremarkable. Patient will continue on ceftriaxone and Flagyl at this time, we will advance the diet per gastroenterology recommendations today. We will start a trial of trazodone as the patient states she was able to sleep and had anxiety last night. I think the patient will also need a cardiology follow-up in the outpatient setting, cholesterol largely controlled however the patient has been dealing with this painful ischemic colitis for quite some time and may need intervention. Although this document has been carefully reviewed, there may still be some phonetic and other typographical errors. These errors are purely grammatical due to imperfections in the software program and should not be construed in any way to compromise the substance of the patient's medical care during this visit.
[2025-02-03 16:00] VITALS: BP 115/48; PULSE 77; PULSE 79; RESP 17; TEMP 36.1; O2SAT 97
[2025-02-03 20:00] VITALS: BP 108/59; PULSE 79; PULSE 85; RESP 20; TEMP 36.3; O2SAT 97
[2025-02-03] MEDS: traZODone HCL 50 MG TABLET PO (21:13)
--- NOTE | 2025-02-03 22:12 | PD.IMPROG ---
Documentation for date of: 02/03/25 Subjective Subjective Interval history: Patient evaluated Hemoglobin hematocrit 8.9 and 27.5 No active bleeding Case discussed with internal medicine team Advance diet follow CBC Exam Vital Signs Temp Pulse Resp BP Pulse Ox O2 Del Method O2 Flow Rate 97.4 F 85 20 108/59 L 97 Room Air 2 02/03/25 20:00 02/03/25 20:00 02/03/25 20:00 02/03/25 20:00 02/03/25 20:00 02/03/25 20:00 01/31/25 13:53 Objective Labs 02/03/25 05:28 02/03/25 05:28 Labs: Laboratory Results - last 24 hr 02/03/25 05:28 WBC 4.6 RBC 3.06 L Hgb 8.9 L Hct 27.5 L MCV 90 MCH 29.1 MCHC 32.4 RDW Std Deviation 44.8 Plt Count 657 H D Neut % (Auto) 51 Lymph % (Auto) 35 Petroleum % (Auto) 12 Eos % (Auto) 1 Baso % (Auto) 1 Neut # (Auto) 2.4 Lymph # (Auto) 1.6 Petroleum # (Auto) 0.6 Eos # (Auto) 0.1 Baso # (Auto) 0.0 Immature Gran # (Auto) 0.02 H Absolute Nucleated RBC 0.00 Immature Gran % 0 Nucleated RBC % 0 Sodium 142 Potassium 3.7 Chloride 107 Carbon Dioxide 27.3 Anion Gap 8 BUN < 5 L Creatinine 0.5 L Estim Creat Clear Calc 101.6 eGFR > 60 BUN/Creatinine Ratio 10 L Glucose 98 Calculated Osmolality 280 Calcium 8.6 Corrected Calcium 9.2 Phosphorus 3.3 Magnesium 1.9 Total Bilirubin 0.3 AST 12 ALT 14 Alkaline Phosphatase 69 Total Protein 5.6 L Albumin 3.3 L Globulin 2.3 Albumin/Globulin Ratio 1.4 Impressions Impression: # Left colonic bleed due to ischemic colitis plan as in the history of present illness ABG Interpretation ABG results: 01/29/25 10:34 VBG pH 7.45 VBG pCO2 37 VBG pO2 39 VBG Base Excess 2 Assessment & Plan A&P Narrative #Hematochezia abnormal CT scan of the abdomen pelvis showing proctitis and colitis pattern Plan Clear liquid diet GoLytely prep Once clean fiberoptic colonoscopy with possible biopsy possible therapeutic intervention under intravenous moderate sedation Hold Yoan Will follow the patient Other medical problems include Coronary artery status post PTCA Diabetes mellitus type 1 Essential hypertension Anxiety neurosis Thank you once again for the opportunity to participate in care of this patient Time Spent With Patient Time: Total time spent is greater than 50% in coordination of care (as documented) at patient's floor/unit and/or counseling patient:
[2025-02-04] VITALS (7 sets, daily range): BP systolic 110–147; BP diastolic 54–95; PULSE 79–103; RESP 12–18; TEMP 36.1–37.1; O2SAT 95–97; BMI 29.1
[2025-02-04 00:27] LABS: Hemoglobin 9.4 g/dL (12.0-16.0)
[2025-02-04] MEDS: HYDROmorphone INJ 2 MG/ML VIAL 1 MG IVP ×3 (04:08→12:08)
[2025-02-04 05:38] LABS: Basophils % (Auto) 1 % (0-2.5); Eosinophils # (Auto) 0.1 Thou/mm3 (0.0-0.5); Eosinophils % (Auto) 1 % (0-10); Hematocrit 27.9 % (36.0-46.0); Immature Granulocytes % (Auto) 0 % (0-0); Immature Granulocytes Auto 0.01 Thou/mm3 (0.00-0.00); Lymphocytes # (Auto) 1.6 Thou/mm3 (1.0-4.8); Lymphocytes % (Auto) 36 % (10-50); Mean Corpuscular HGB Conc 31.2 g/dl (31.0-37.0); Mean Corpuscular Hemoglobin 28.3 pg (25.0-35.0); Mean Corpuscular Volume 91 fL (80-100); Monocytes # (Auto) 0.6 Thou/mm3 (0.0-0.8); Monocytes % (Auto) 15 % (0-12); Neutrophils # (Auto) 2.1 Thou/mm3 (1.8-7.7); Neutrophils % (Auto) 47 % (37-80); Nucleated Red Blood Cell % 0 /100 WBC (0); Platelet Count 587 Thou/mm3 (140-440); RDW Standard Deviation 46.9 fL (36.4-46.3); Red Blood Count 3.07 Miln/mm3 (4.00-5.20); White Blood Count 4.4 Thou/mm3 (3.6-11.0)
[2025-02-04 05:51] LABS: Hemoglobin 8.7 g/dL (12.0-16.0)
[2025-02-04] MEDS: metroNIDAZOLE/NS 500 MG IVPB 500 MG/100 ML BAG 200 MG IV (05:56)
[2025-02-04 06:42] LABS: Alanine Aminotransferase 12 U/L (10-49); Albumin, Serum 3.1 gm/dL (3.4-4.8); Albumin/Globulin Ratio 1.3 (1.2-2.2); Alkaline Phosphatase 64 U/L (46-116); Anion Gap 6 (7-16); Aspartate Amino Transferase 10 U/L (0-34); BUN/Creatinine Ratio 8 Ratio (12-20); Bilirubin,Total < 0.2 mg/dL (0.3-1.2); Blood Urea Nitrogen < 5 mg/dL (9-23); Calcium 8.5 mg/dL (8.3-10.6); Calcium (Corrected) 9.2 mg/dL (8.5-10.1); Carbon Dioxide 27.2 mMol/L (20.0-31.0); Chloride 107 mMol/L (98-107); Creatinine (Component) 0.6 mg/dL (0.6-1.3); Estimated Creatinine Clearance 84.7 mL/min (>60); Globulin 2.3 gm/dL (2.3-3.5); Glucose 232 mg/dL (74-106); Osmolality,Calculated 283 (275-295); Phosphorous 3.2 mg/dL (2.4-5.1); Potassium 3.7 mMol/L (3.4-5.1); Sodium 140 mMol/L (136-145); Total Protein 5.4 gm/dL (5.7-8.2); eGFR > 60 See Note
[2025-02-04] MEDS: INSULIN LISPRO (AdmeLOG) 1 UNIT/0.01 ML UNIT SC ×4 (07:46→20:36)
[2025-02-04] MEDS: clonazePAM 0.5 MG TABLET 1 MG PO ×2 (08:06→20:42)
[2025-02-04] MEDS: PANTOPRAZOLE 40 MG TABLET PO ×2 (08:07→20:42)
[2025-02-04] MEDS: cefTRIAXone/D5w 2gm 2 GM/50 ML BAG IV (08:09)
--- NOTE | 2025-02-04 12:17 | ESPR_ITS ---
<Statement entered by Nelly Pascual MD - 02/05/25 08:13> Patient was seen and examined by me personally. I agree with most of the assessment and plan as discussed with the buying intern physician, and my attending, Dr. Salas. Nelly Pascual MD, PGY-3 <Statement entered by Boy Meza MD - 02/04/25 14:24> Patient was seen and examined at the bedside. Patient reported that she has not been eating or drinking well and denied passing bowel movement. She has not been feeling good as well and she wants to get treated before she leaves the hospital. Hemoglobin was stable at 8.7. Other labs were unremarkable. We are currently waiting on GI specialist recommendations and surgery recommendations. Pain management was optimized as patient was complaining of abdominal discomfort. Will follow-up with recommendations by gastroenterology and surgery. All labs and orders were reviewed. I saw and examined the patient, and I agree with current management stated by Dr Gianluca MD,PGY1. Plan of care was discussed with the attending physician and resident physician. Disclaimer: Despite multiple revisions, due to the dictation software being used, the document bellow may not be free of grammatical errors including phonetic/typographic errors. However, this does not deter from our commitment to providing health care in the patient's best interest in mind. Dr. Susana MD, PGY 2 Documentation for date of: 02/04/25 Subjective Subjective Interval history: Patient seen and examined at bedside this morning. No acute overnight events. Patient is tolerating low fiber diet with moderate abdominal pain, but no bloody bowel movements. Will adjust pain regimen and follow-up with GI/general surgery for further recommendations. Vitals, labs reviewed. Hemoglobin stable 8.7, thrombocytosis noted likely in setting of anemia. FBG 232, will evaluate need for insulin. Exam Vital Signs Temp Pulse Resp BP Pulse Ox O2 Del Method O2 Flow Rate 97.0 F 88 12 133/95 H 95 Room Air 2 02/04/25 08:00 02/04/25 08:00 02/04/25 08:00 02/04/25 08:00 02/04/25 08:00 02/04/25 08:00 01/31/25 13:53 Narrative Exam General: AOx3, in mild distress, laying in bed, able to speak full sentences HEENT: NC/AT, mucous membranes moist, bilateral sclera anicteric Cardiovascular: regular rate and rhythm, S1/S2 present, no murmurs appreciated Pulmonary: clear to auscultation bilaterally, no rales/rhonchi/wheezes Abdominal: Mild tenderness to palpation diffusely, soft, nondistended Musculoskeletal: normal ROM, no peripheral edema Skin: warm and dry, intact, no rashes Neuro: CN II-XII intact, no focal deficits Objective Labs 02/04/25 05:12 02/04/25 05:12 Labs: Laboratory Results - last 24 hr 02/04/25 02/04/25 00:15 05:12 WBC 4.4 RBC 3.07 L Hgb 9.4 L 8.7 L Hct 29.0 L 27.9 L MCV 91 MCH 28.3 MCHC 31.2 RDW Std Deviation 46.9 H Plt Count 587 H D Neut % (Auto) 47 Lymph % (Auto) 36 [place] % (Auto) 15 H Eos % (Auto) 1 Baso % (Auto) 1 Neut # (Auto) 2.1 Lymph # (Auto) 1.6 [place] # (Auto) 0.6 Eos # (Auto) 0.1 Baso # (Auto) 0.0 Immature Gran # (Auto) 0.01 H Absolute Nucleated RBC 0.00 Immature Gran % 0 Nucleated RBC % 0 Sodium 140 Potassium 3.7 Chloride 107 Carbon Dioxide 27.2 Anion Gap 6 L BUN < 5 L Creatinine 0.6 Estim Creat Clear Calc 84.7 eGFR > 60 BUN/Creatinine Ratio 8 L Glucose 232 H D Calculated Osmolality 283 Calcium 8.5 Corrected Calcium 9.2 Phosphorus 3.2 Magnesium 2.0 Total Bilirubin < 0.2 L AST 10 ALT 12 Alkaline Phosphatase 64 Total Protein 5.4 L Albumin 3.1 L Globulin 2.3 Albumin/Globulin Ratio 1.3 ABG Interpretation ABG results: 01/29/25 10:34 VBG pH 7.45 VBG pCO2 37 VBG pO2 39 VBG Base Excess 2 Quality Measures Quality Measures VTE prophylaxis (SCDs) Advance care planning discussed with:: other Assessment & Plan Assessment Current Active Medications: Generic Name Dose Route Start Last Admin Trade Name Freq PRN Reason Stop Dose Admin Acetaminophen 650 mg 01/29/25 16:25 01/30/25 08:22 Acetaminophen 325 Mg Tablet PO 02/28/25 16:24 650 mg Q6H PRN Administration PAIN OR FEVER > 100.4 Protocol Clonazepam 1 mg 01/29/25 21:00 02/04/25 08:06 Clonazepam 0.5 Mg Tablet PO 02/06/25 20:59 1 mg BID DENISSE Administration Dextrose 25 ml 01/29/25 16:33 Dextrose 50%-Water Inj 50 Ml Syringe IV 02/28/25 16:32 Q15MIN PRN BG 50-70 responsive npo pt Dextrose 50 ml 01/29/25 16:33 Dextrose 50%-Water Inj 50 Ml Syringe IV 02/28/25 16:32 Q15MIN PRN BG <50 OR BG <70 & pt unresponsive Glucagon 1 mg 01/29/25 16:33 Glucagon Inj 1 Mg Vial IM Q15MIN PRN BG <70, and no IV access Hydromorphone HCl 1.5 mg 02/04/25 12:14 Hydromorphone Inj 2 Mg/Ml Vial IVP 02/06/25 17:59 Q4HR PRN PAIN SCALE 7-10(SEVERE) Insulin Human Lispro 0 unit 02/04/25 11:24 02/04/25 12:07 Insulin Lispro (Admelog) 1 Unit/0.01 Ml Unit SC 03/05/25 16:59 4 unit ACHS DENISSE Administration Protocol Nitroglycerin 1 inch 02/01/25 20:29 Nitroglycerin Oint 2% 1 Inch Packet TOP 03/03/25 20:59 BID PRN chest pain, Hold If SBP 180mmH Ondansetron HCl 4 mg 01/29/25 16:25 02/02/25 02:20 Ondansetron Inj 2 Mg/Ml Inj 2 Ml IV 02/28/25 16:24 4 mg Q6H PRN Administration NAUSEA OR VOMITING Protocol Pantoprazole Sodium 40 mg 02/02/25 21:00 02/04/25 08:07 Pantoprazole 40 Mg Tablet PO 03/04/25 20:59 40 mg BID DENISSE Administration Protocol Trazodone HCl 50 mg 02/03/25 21:00 02/03/25 21:13 Trazodone Hcl 50 Mg Tablet PO 03/05/25 20:59 50 mg HS DENISSE Administration Plan Ariadna Albarran is a 64-year-old female with a past medical history of CAD s/p multiple stents, PAD, a-fib (not on AC), HTN, T2DM, and esophageal strictures s/p dilatation x2 who presented to the ED on 01/29 for hematochezia and admitted for further workup/management of lower GI bleed. #Ischemic colitis vs adenocarcinoma #Hemorrhoids #Diverticulosis #Intractable diarrhea Colonoscopy 01/31: 4.5 cm ulcerated, severely friable mucosa with contact bleeding and blood clots, suggestive of ischemic colitis vs adenocarcinoma, s/p biopsy. EGD 01/31: unremarkable. ? General surgery, appreciate recommendations: Monitor pain and frequency of bloody bowel movements, but surgery not indicated at this time ? GI consulted, appreciate recommendations ? Low fiber diet ? Antibiotic course completed: Ceftriaxone 2 g IV daily, Flagyl 500 mg IV every 8 hours (01/29-02/04) ? Follow-up stool culture: negative ? Dilaudid 1.5 mg IV every 4 hours as needed for severe pain => will transition to p.o. medications prior to discharge ? Advised patient to follow-up with cardiology outpatient for workup of atherosclerotic disease leading to ischemic colitis, as patient has severe cardiac history #CAD status post multiple stents #PAD (status post stents in bilateral femoral arteries, aorta, and ICA) Home aspirin 81 mg p.o. daily, atorvastatin 80 mg p.o. at bedtime, clopidogrel 75 mg p.o. daily Lipid panel shows TGL 119, cholesterol 114, LDL 56, HDL 34 ? Hold home p.o. meds #Atrial fibrillation Currently not on AC as patient states that they have not been able to follow-up with tube buffer, Dr. Dillard, yet. Additionally, we will hold all anticoagulation/antiplatelets given lower GI bleed. Home metoprolol succinate 100 mg p.o. daily #Hypertension Home amlodipine 2.5 mg p.o. at bedtime, lisinopril-HCTZ, metoprolol succinate 100 mg p.o. daily ? Hold home p.o. meds #Type 2 diabetes mellitus, [id number] A1c 12/2024 7.6%, on metformin 750 mg p.o. daily ? SSI step 2 every 6 hours -> ACHS ? Hypoglycemia protocol with Accu-Cheks ?FB, will reevaluate POC testing and consider starting Lantus at bedtime #Thrombocytosis, likely reactive in setting of lower GI bleed ? Continue to monitor #Anxiety ? Trazodone Hospital management: Disposition: Colonoscopy showed ischemic colitis, general surgery and GI following and advancing diet as tolerated Fluids: DC'd after starting diet Diet: low fiber diet, advancing as tolerated Lines: PIV's DVT prophylaxis: SCDs given GI bleed GI prophylaxis: Pantoprazole 40 mg IV twice daily CODE STATUS: full code ----- Plan discussed with attending physician Dr. Salas and senior resident physician Dr. Susana Hough MD PGY-1 Internal Medicine Attending Provider Attestation/Addendum I have discussed and was present for the essential components of the history, physical examination, diagnosis, and treatment plan with the resident. I agree with the patient's care as documented by the resident and amended herein by me. Eldon Salas, DO. Patient seen and evaluated this AM. No acute events overnight, vital signs stable, patient afebrile in the a.m., hemoglobin low but stable at 8.7 today. Patient likely has ischemic colitis per colonoscopy findings, subjectively, the patient states she continues to feel unwell does have abdominal pain with low fiber diet per GI, I am going to stop antibiotics today as she has been on antibiotics since admission, general surgery will see the patient today, GI will also see the patient today for further recommendations. Previously, no surgical intervention warranted earlier in admission. Appreciate specialist recommendations Although this document has been carefully reviewed, there may still be some phonetic and other typographical errors. These errors are purely grammatical due to imperfections in the software program and should not be construed in any way to compromise the substance of the patient's medical care during this visit.
[2025-02-04] MEDS: HYDROmorphone INJ 2 MG/ML VIAL 1.5 MG IVP ×2 (16:22→20:43)
[2025-02-04] MEDS: traZODone HCL 50 MG TABLET PO (20:42)
--- NOTE | 2025-02-04 22:39 | PD.IMPROG ---
Documentation for date of: 02/04/25 Subjective Subjective Interval history: No signs of active bleeding per rectum hemoglobin hematocrit 8.7 and 27.9 Colonic biopsy shows no carcinoma not enough tissue to properly diagnose ischemic colitis but primary findings after talk to the pathologist are consistent with the ischemia Exam Vital Signs Temp Pulse Resp BP Pulse Ox O2 Del Method O2 Flow Rate 98.2 F 89 16 112/54 L 97 Room Air 2 02/04/25 20:00 02/04/25 20:00 02/04/25 20:00 02/04/25 20:00 02/04/25 20:00 02/04/25 20:00 01/31/25 13:53 Objective Labs 02/04/25 05:12 02/04/25 05:12 Labs: Laboratory Results - last 24 hr 02/04/25 02/04/25 00:15 05:12 WBC 4.4 RBC 3.07 L Hgb 9.4 L 8.7 L Hct 29.0 L 27.9 L MCV 91 MCH 28.3 MCHC 31.2 RDW Std Deviation 46.9 H Plt Count 587 H D Neut % (Auto) 47 Lymph % (Auto) 36 [place] % (Auto) 15 H Eos % (Auto) 1 Baso % (Auto) 1 Neut # (Auto) 2.1 Lymph # (Auto) 1.6 [place] # (Auto) 0.6 Eos # (Auto) 0.1 Baso # (Auto) 0.0 Immature Gran # (Auto) 0.01 H Absolute Nucleated RBC 0.00 Immature Gran % 0 Nucleated RBC % 0 Sodium 140 Potassium 3.7 Chloride 107 Carbon Dioxide 27.2 Anion Gap 6 L BUN < 5 L Creatinine 0.6 Estim Creat Clear Calc 84.7 eGFR > 60 BUN/Creatinine Ratio 8 L Glucose 232 H D Calculated Osmolality 283 Calcium 8.5 Corrected Calcium 9.2 Phosphorus 3.2 Magnesium 2.0 Total Bilirubin < 0.2 L AST 10 ALT 12 Alkaline Phosphatase 64 Total Protein 5.4 L Albumin 3.1 L Globulin 2.3 Albumin/Globulin Ratio 1.3 Impressions Impression: Ischemic colitis left colon hematochezia secondary to above Plan advance diet ABG Interpretation ABG results: 01/29/25 10:34 VBG pH 7.45 VBG pCO2 37 VBG pO2 39 VBG Base Excess 2 Assessment & Plan A&P Narrative #Hematochezia abnormal CT scan of the abdomen pelvis showing proctitis and colitis pattern Plan Clear liquid diet GoLytely prep Once clean fiberoptic colonoscopy with possible biopsy possible therapeutic intervention under intravenous moderate sedation Hold Eliquis Will follow the patient Other medical problems include Coronary artery status post PTCA Diabetes mellitus type 1 Essential hypertension Anxiety neurosis Thank you once again for the opportunity to participate in care of this patient Time Spent With Patient Time: Total time spent is greater than 50% in coordination of care (as documented) at patient's floor/unit and/or counseling patient:
[2025-02-05] MEDS: HYDROmorphone INJ 2 MG/ML VIAL 1.5 MG IVP ×2 (01:38→06:07)
[2025-02-05 04:00] VITALS: BP 105/58; PULSE 89; RESP 18; TEMP 36.2; O2SAT 98
[2025-02-05 05:13] VITALS: BP 123/59; PULSE 81; RESP 16; TEMP 36.6; O2SAT 92
[2025-02-05 05:40] LABS: Eosinophils % (Auto) 1 % (0-10); Lymphocytes % (Auto) 42 % (10-50); Mean Corpuscular Volume 92 fL (80-100); Monocytes # (Auto) 0.7 Thou/mm3 (0.0-0.8); Neutrophils % (Auto) 44 % (37-80); Nucleated Red Blood Cell % 0 /100 WBC (0)
[2025-02-05 05:42] LABS: Basophils % (Auto) 1 % (0-2.5); Eosinophils # (Auto) 0.1 Thou/mm3 (0.0-0.5); Hematocrit 27.5 % (36.0-46.0); Immature Granulocytes % (Auto) 1 % (0-0); Immature Granulocytes Auto 0.03 Thou/mm3 (0.00-0.00); Lymphocytes # (Auto) 2.4 Thou/mm3 (1.0-4.8); Mean Corpuscular HGB Conc 31.3 g/dl (31.0-37.0); Mean Corpuscular Hemoglobin 28.9 pg (25.0-35.0); Monocytes % (Auto) 12 % (0-12); Neutrophils # (Auto) 2.6 Thou/mm3 (1.8-7.7); Platelet Count 592 Thou/mm3 (140-440); RDW Standard Deviation 47.4 fL (36.4-46.3); Red Blood Count 2.98 Miln/mm3 (4.00-5.20); White Blood Count 5.8 Thou/mm3 (3.6-11.0)
[2025-02-05 05:44] LABS: Hemoglobin 8.6 g/dL (12.0-16.0)
[2025-02-05 06:00] VITALS: BMI 28.8
[2025-02-05 06:34] LABS: Alanine Aminotransferase 10 U/L (10-49); Albumin, Serum 3.2 gm/dL (3.4-4.8); Albumin/Globulin Ratio 1.4 (1.2-2.2); Alkaline Phosphatase 70 U/L (46-116); Anion Gap 8 (7-16); Aspartate Amino Transferase < 10 U/L (0-34); BUN/Creatinine Ratio 17 Ratio (12-20); Bilirubin,Total 0.2 mg/dL (0.3-1.2); Blood Urea Nitrogen 10 mg/dL (9-23); Calcium 8.7 mg/dL (8.3-10.6); Calcium (Corrected) 9.3 mg/dL (8.5-10.1); Carbon Dioxide 27.4 mMol/L (20.0-31.0); Chloride 107 mMol/L (98-107); Creatinine (Component) 0.6 mg/dL (0.6-1.3); Estimated Creatinine Clearance 84.4 mL/min (>60); Globulin 2.3 gm/dL (2.3-3.5); Glucose 187 mg/dL (74-106); Magnesium 1.8 mg/dL (1.6-2.6); Osmolality,Calculated 287 (275-295); Sodium 142 mMol/L (136-145); Total Protein 5.5 gm/dL (5.7-8.2); eGFR > 60 See Note
[2025-02-05 08:00] VITALS: BP 127/61; PULSE 80; RESP 18; TEMP 36.1; O2SAT 93
[2025-02-05] MEDS: INSULIN LISPRO (AdmeLOG) 1 UNIT/0.01 ML UNIT SC ×2 (08:03→11:19)
[2025-02-05] MEDS: clonazePAM 0.5 MG TABLET 1 MG PO (08:04)
[2025-02-05] MEDS: PANTOPRAZOLE 40 MG TABLET PO (08:05)
[2025-02-05] MEDS: INSULIN GLARGINE (Lantus) 5 UNIT/0.05 ML (PER 5 UNITS) SC (09:32)
[2025-02-05] MEDS: INSULIN LISPRO (AdmeLOG) 1 UNIT/0.01 ML UNIT 2 UNIT SC (11:19)
[2025-02-05] MEDS: oxyCODONE/APAP 5/325 TABLET 1 TAB PO (11:20)
[2025-02-05 12:00] VITALS: BP 143/72; PULSE 92; RESP 15; TEMP 36.4; O2SAT 96
--- NOTE | 2025-02-05 14:33 | ESDS_ITS ---
<Statement entered by Boy Meza MD - 02/05/25 15:26> Patient was seen and examined this morning and was explained that we will see the patient after rounding and plan was to discharge her and advised her to follow-up with GI specialist, her tobacco roller and PCP as outpatient with medications given on discharge however patient left AMA before attending physician could see the patient. All risks were explained including of the patient before she left AMA. I saw and examined the patient, and I agree with current management stated by Dr Gianluca MD,PGY1. Plan of care was discussed with the attending physician and resident physician. Disclaimer: Despite multiple revisions, due to the dictation software being used, the document bellow may not be free of grammatical errors including phonetic/typographic errors. However, this does not deter from our commitment to providing health care in the patient's best interest in mind. Dr. Susana MD, PGY 2 Planned Discharge Date 02/05/25 DS: Providers Provider Date of admission: 01/29/25 16:26 Primary care physician: DONAL Spain Admitting Provider: Cole Salas DO Attending Provider on Admission: Srini Bauman MD Consults: 01/29/25 14:41 Consult to Gastroenterology Stat Comment: Consulting Provider: Israel Juárez 01/30/25 05:43 Referral Infection Control Routine Comment: Reason for Infection Control Referral: Readmitted within 30 days 01/31/25 13:09 Consult to General Surgery Routine Comment: Consulting Provider: Yvonne Hilario Attending Provider on DC: Faisal Hough MD Discharging Provider: Faisal Hough MD DS: Diagnosis Problem List Completed Was Problem List Reviewed/Reconciled?: Yes Hospital Course Hospital Course Hospital course: Ariadna Albarran is a 64-year-old female with a past medical history of CAD (s/p multiple stents), PAD (s/p b/l femoral artery/aorta/ICA stenting), a-fib (not on AC), HTN, T2DM, and esophageal strictures s/p dilatation x2 who presented on 01/29 for hematochezia. at bedside who helped aid in providing history. Around 3:00 AM, patient woke up due to significant abdominal pain and had bloody bowel movement. Per , bowel content was around toilet bowl and on floor suggesting that patient was incontinent. Denies rectal pain during bowel movements but states that she has had abdominal pain since being released from outside hospital for DKA and pneumonia requiring mechanical ventilation approximately 2-3 weeks ago. However, patient has been having loose bowel movem ents for approximately one month and lately has been having 10-12 BMs per day that are foul-smelling. Does not state she was on antibiotics prior to loose bowel movements. Of note, she did undergo a colonoscopy within the last year by Dr. Juárez without significant findings per patient. Admitted for further workup/management of lower GI bleed. Transfused 1 unit PRBC given cardiac history for decreasing from 10.6 to 8.3, and after transfusion hemoglobin remained stable throughout hospital stay. She did have 1 bloody bowel movement on first night of hospitalization, but other BMs were nonbloody. Underwent colonoscopy on 01/31 and was found to have a 4.5 cm ulcerated, significantly friable lesion in descending colon. General surgery was then consulted, however no signs of gangrene or perforation so surgical intervention not indicated. Patient was started on Flagyl and ceftriaxone, given bowel rest for a couple of days, and then started on clear liquid diet that was eventually advanced to low fiber. Patient was able to tolerate without any bloody bowel movements but did endorse continued abdominal pain. Biopsies came back negative for adenocarcinoma and inconclusive but consistent with ischemic colitis. EGD was unremarkable and stool culture negative for pathogens. Patient managed on morphine but was transition to Dilaudid due to continued abdominal pain. Throughout hospitalization patient and were updated regarding findings and future plans. Discussed that hemoglobin has been stable and has not had any bloody bowel movements with advancement in diet, supporting that patient did not need surgical intervention. Also mentioned that she should follow-up closely with her tobacco roller for possible interventions they may offer. On last day of hospitalization, explained to patient plans to decrease IV pain medications and to transition to PO and plans for DC and decided to leave AGAINST MEDICAL ADVICE despite informing her the risks, including , of leaving before officially being medically cleared. Diagnoses during admission: #Ischemic colitis #Hemorrhoids #Diverticulosis #Intractable diarrhea #CAD status post multiple stents #PAD (status post stents in bilateral femoral arteries, aorta, and ICA) #Atrial fibrillation #Hypertension #Type 2 diabetes mellitus, [id number] #Thrombocytosis, likely reactive in setting of lower GI bleed #Anxiety ----- Case discussed with attending physician Dr. Bauman and senior resident physician Dr. Susana Hough MD PGY-1 Internal Medicine Time Spent with Patient Time attestation: Total time spent providing and/or coordinating discharge services: Exam Vital Signs Temp Pulse Resp BP Pulse Ox O2 Del Method O2 Flow Rate 97.5 F 92 15 143/72 H 96 Room Air 2 02/05/25 12:02/05/25 12:02/05/25 12:02/05/25 12:02/05/25 12:02/05/25 12:01/31/25 13:53 Narrative Exam General: AOx3, in mild distress, laying in bed, able to speak full sentences HEENT: NC/AT, mucous membranes moist, bilateral sclera anicteric Cardiovascular: regular rate and rhythm, S1/S2 present, no murmurs appreciated Pulmonary: clear to auscultation bilaterally, no rales/rhonchi/wheezes Abdominal: Mild tenderness to palpation diffusely, soft, nondistended Musculoskeletal: normal ROM, no peripheral edema Skin: warm and dry, intact, no rashes Neuro: CN II-XII intact, no focal deficits Discharge Plan Plan Patient Disposition: HOME (Self Care) Disposition Comment: Hospitalist admit Dr. Juárez to consult Care Plan Goals: - Take Plavix 75 mg once daily and Hold aspirin until you see your PCP as out patient - Follow-up with Primary Care Provider within 1 week of discharge - Follow-up with GI specialist on Sunday after making an appointment - Advised follow-up with cardiology outpatient for workup of atherosclerotic disease leading to ischemic colitis - Recommend to stay hydrated and to avoid constipation, avoid eating large meals at once - Continue all other home medications as prescribed - Return to the ED if symptoms worsen or recur (i.e. bloody bowel movements, severe abdominal pain - especially after eating) Prescriptions/Referrals Prescriptions/Med Rec: New trazodone 50 mg Tablet 50 mg PO HS Qty: 30 0RF pantoprazole 40 mg Tablet,Delayed Release (Dr/Ec) 40 mg PO BID Qty: 90 0RF Continued lisinopril-hydrochlorothiazide 20-12.5 mg Tablet 1 tab PO QDAY gabapentin 300 mg Capsule 300 mg PO BID metformin 750 mg tablet extended release 24 hr 750 mg PO QDAY Patient Comments: TAKE 1 TABLET BY MOUTH DAILY IN THE MORNING atorvastatin 80 mg tablet 80 mg PO HS Patient Comments: TAKE 1 TABLET BY MOUTH EVERY DAY isosorbide mononitrate 30 mg tablet extended release 24 hr 30 mg PO QDAY amlodipine 2.5 mg tablet 2.5 mg PO HS Patient Comments: TAKE 1 TABLET BY MOUTH EVERY DAY clopidogrel 75 mg tablet 75 mg PO QDAY Patient Comments: TAKE 1 TABLET BY MOUTH EVERY DAY FOR HEART AND BRAIN CIRCULATION metoprolol succinate 100 mg tablet extended release 24 hr 100 mg PO QDAY dicyclomine 10 mg capsule 10 mg PO QDAY Patient Comments: TAKE 1 CAPSULE BY MOUTH TWICE A DAY tramadol 50 mg tablet 50 mg PO TID PRN (Reason: pain) Qty: 20 0RF hydroxyzine HCl 25 mg tablet 25 mg PO QAM clonazepam 1 mg tablet 1 mg PO BID Patient Comments: TAKE 1 TABLET BY MOUTH TWICE A DAY NEEDED FOR ANXIETY Held aspirin 81 mg Tablet,Delayed Release (Dr/Ec) 81 mg PO QDAY Hold Instructions: Resume on 02/05/25. Hold until you see your PCP or GI Discontinued venlafaxine 75 mg Tablet 75 mg PO QPM pantoprazole 40 mg tablet,delayed release (DR/EC) 40 mg PO QDAY Patient Comments: 1 TABLET (40 MG) ORALLY DAILY FOR 1 MONTH clopidogrel [Plavix] 75 mg tablet 75 mg PO QDAY Referrals: Nadeen Sewell FNP [Primary Care Provider] - Patient/Caregiver Discharge Instructions Education Materials: Low-Fiber Diet Print Language: Afghan Stand Alone Forms: [facility] Award Info., Patient Portal Info Letter Discharge Order Discharge Orders: Discharge (Routine); Ordered 02/05/25 Ordered By: Boy Meza Quality Discharge Quality Measures VTE prophylaxis Attestestation MD Attestation I have examined the patient, reviewed labs and imaging findings, discussed the case with the resident(s), and reviewed entered orders. I agree with the plan of care as outlined in this note, with these additional summaries/recommendations: During rounds we were notified that patient had decided to leave AGAINST MEDICAL ADVICE and I did not get the chance to evaluate the patient in person. Attempts were made to contact patient although unsuccessful. Dr. Mitul MD
== END 2025-02-05 12:24 | disposition home or self-care (01) | DRG 393 ==
LOC: SERX 14:41 → SERHOLD 01-30 06:21 → S2NX 01-30 06:21 → S3NX 02-05 04:58
PROVIDERS: Specialist; Student in an Organized Health Care Education/Training Program; Admitting Provider Student in an Organized Health Care Education/Training Program; Emergency Provider Emergency Medicine; PCP Nurse Practitioner Family; Visit Provider Student in an Organized Health Care Education/Training Program
PROC: (CPT 43239; principal; 2025-01-31 12:30)
PROC: 0DJD8ZZ Inspection of Lower Intestinal Tract, Via Natural or Artificial Opening Endoscopic (ICD-10-PCS; CPT 45378; 2025-01-31 12:30)
DX: K55.9 Vascular disorder of intestine, unspecified (principal); K29.71 Gastritis, unspecified, with bleeding; K57.31 Diverticulosis of large intestine without perforation or abscess with bleeding; I10 Essential (primary) hypertension; I25.10 Atherosclerotic heart disease of native coronary artery without angina pectoris; I48.91 Unspecified atrial fibrillation; D75.839 Thrombocytosis, unspecified; K64.8 Other hemorrhoids; E11.51 Type 2 diabetes mellitus with diabetic peripheral angiopathy without gangrene; G47.00 Insomnia, unspecified; F41.1 Generalized anxiety disorder; Z95.5 Presence of coronary angioplasty implant and graft; Z87.891 Personal history of nicotine dependence; G89.29 Other chronic pain; D50.0 Iron deficiency anemia secondary to blood loss (chronic); I25.2 Old myocardial infarction; E78.5 Hyperlipidemia, unspecified; Z86.74 Personal history of sudden cardiac arrest; Z79.02 Long term (current) use of antithrombotics/antiplatelets; Z90.49 Acquired absence of other specified parts of digestive tract; Z79.899 Other long term (current) drug therapy; Z86.73 Personal history of transient ischemic attack (TIA), and cerebral infarction without residual deficits; Z98.1 Arthrodesis status; Z79.82 Long term (current) use of aspirin; Z79.84 Long term (current) use of oral hypoglycemic drugs
CPT/HCPCS: 36415; 36430; 71045; 71250; 74176; 80053; 80061; 81001; 81025; 82010; 82803; 83605; 83690; 83735; 84100; 84443; 84484; 85014; 85018; 85025; 85610; 85730; 86850; 86900; 86901; 86923; 87015; 87040; 87045; 87046; 87081; 87493; 87811; 87899; 93005; 96361; 96365; 96367; 96375; 96376; 99285; A4649; J0360; J0696; J1200; J1815; J2175; J2250; J2270; J2405; J2470; J2543; J3010; J3475; J3490; J7030; J7050; J7120; J7999; P9016; A9270; J1836

== ENCOUNTER → 2025-02-11 | Outpatient (CLI) | payer MEDICARE, BC, SELFPAY ==
[2025-02-11 10:40] LABS: Basophils % (Auto) 0 % (0-2.5); Eosinophils # (Auto) 0.1 Thou/mm3 (0.0-0.5); Eosinophils % (Auto) 1 % (0-10); Hematocrit 34.3 % (36.0-46.0); Hemoglobin 10.8 g/dL (12.0-16.0); Immature Granulocytes % (Auto) 0 % (0-0); Immature Granulocytes Auto 0.01 Thou/mm3 (0.00-0.00); Lymphocytes # (Auto) 1.5 Thou/mm3 (1.0-4.8); Lymphocytes % (Auto) 28 % (10-50); Mean Corpuscular HGB Conc 31.5 g/dl (31.0-37.0); Mean Corpuscular Hemoglobin 28.4 pg (25.0-35.0); Mean Corpuscular Volume 90 fL (80-100); Monocytes # (Auto) 0.4 Thou/mm3 (0.0-0.8); Monocytes % (Auto) 8 % (0-12); Neutrophils # (Auto) 3.3 Thou/mm3 (1.8-7.7); Neutrophils % (Auto) 63 % (37-80); Nucleated Red Blood Cell % 0 /100 WBC (0); Platelet Count 455 Thou/mm3 (140-440); RDW Standard Deviation 47.8 fL (36.4-46.3); White Blood Count 5.3 Thou/mm3 (3.6-11.0)
[2025-02-11 10:51] LABS: Glucose Estimated Average 123 mg/dL (80-131); Hemoglobin A1C 5.9 % Hgb (4.8-6.0)
[2025-02-11 10:52] LABS: B-Type Natriuretic Peptide 181 pg/mL (0-100)
[2025-02-11 10:59] LABS: Alanine Aminotransferase 19 U/L (10-49); Alkaline Phosphatase 93 U/L (46-116); Anion Gap 10 (7-16); Aspartate Amino Transferase 19 U/L (0-34); BUN/Creatinine Ratio 25 Ratio (12-20); Bilirubin,Direct 0.1 mg/dL (0.0-0.3); Bilirubin,Total 0.4 mg/dL (0.3-1.2); Blood Urea Nitrogen 15 mg/dL (9-23); Carbon Dioxide 25.2 mMol/L (20.0-31.0); Cardiac Risk Estimate 3.8 RATIO (3.7-5.6); Chloride 105 mMol/L (98-107); Cholesterol 186 mg/dL (132-200); Creatinine (Component) 0.6 mg/dL (0.6-1.3); Glucose 185 mg/dL (74-106); HDL Cholesterol 49 mg/dL (40-60); LDL Cholesterol,Calculated 87 mg/dL (0-130); Osmolality,Calculated 285 (275-295); Potassium 4.5 mMol/L (3.4-5.1); Sodium 140 mMol/L (136-145); Thyroid Stimulating Hormone 0.65 uIU/mL (0.55-4.78); Total Protein 6.6 gm/dL (5.7-8.2); Triglycerides 248 mg/dL (30-150); eGFR > 60 See Note
== END | disposition home or self-care (01) ==
LOC: COPL 09:28
PROVIDERS: PCP Family Medicine; Referring Provider Internal Medicine Cardiovascular Disease; Visit Provider Internal Medicine Cardiovascular Disease
DX: I11.0 Hypertensive heart disease with heart failure (principal); I50.9 Heart failure, unspecified; E78.2 Mixed hyperlipidemia; E11.65 Type 2 diabetes mellitus with hyperglycemia
CPT/HCPCS: 36415; 80048; 80061; 80076; 83036; 83880; 84439; 84443; 85025

== ENCOUNTER 2025-02-14 21:21 | Emergency (ER) | payer MEDICARE, BC, SELFPAY ==
[2025-02-14 21:33] VITALS: PULSE 80; RESP 18; O2SAT 98
[2025-02-14 21:37] VITALS: BP 128/70; PULSE 75; RESP 17; TEMP 36.6; O2SAT 95
[2025-02-14 21:38] VITALS: BMI 26.5
--- NOTE | 2025-02-14 21:46 | PD.EDGIBLD ---
ED GI Bleed RME/HPI General Chief complaint: GI Bleed Stated complaint: RECTAL BLEEDING Time Seen by Provider: 02/14/25 21:46 Arrival date/time: 02/14/25 21:21 Related Data Home Medications ?Medication ?Instructions ?Recorded ?Confirmed amlodipine 2.5 mg tablet 2.5 mg PO HS 09/10/23 01/29/25 atorvastatin 80 mg tablet 80 mg PO HS 09/10/23 01/29/25 clopidogrel 75 mg tablet 75 mg PO QDAY 09/10/23 01/29/25 isosorbide mononitrate 30 mg 30 mg PO QDAY 09/10/23 01/29/25 tablet,extended release 24 hr aspirin 81 mg tablet,delayed 81 mg PO QDAY 07/07/24 01/29/25 release Held on 02/05/25. Instructions: Resume on 02/05/25. Hold until you see your PCP or GI dicyclomine 10 mg capsule 10 mg PO QDAY 07/07/24 01/29/25 metoprolol succinate 100 mg 100 mg PO QDAY 07/07/24 01/29/25 tablet,extended release 24 hr gabapentin 300 mg capsule 300 mg PO BID 10/19/24 01/29/25 lisinopril 20 1 tab PO QDAY 10/19/24 01/29/25 mg-hydrochlorothiazide 12.5 mg tablet metformin 750 mg tablet,extended 750 mg PO QDAY 10/19/24 01/29/25 release 24 hr clonazepam 1 mg tablet 1 mg PO BID 01/29/25 01/29/25 hydroxyzine HCl 25 mg tablet 25 mg PO QAM 01/29/25 01/29/25 Previous Rx's ?Medication ?Instructions ?Recorded tramadol 50 mg tablet 50 mg PO TID PRN pain #20 tabs 10/24/24 pantoprazole 40 mg tablet,delayed 40 mg PO BID #90 tabs 02/05/25 release trazodone 50 mg tablet 50 mg PO HS #30 tabs 02/05/25 Allergies Allergy/AdvReac Type Severity Reaction Status Date / Time codeine Allergy Severe HIVES Verified 11/15/24 20:07 hydrocodone Allergy Severe RASH AND Verified 11/15/24 20:07 SWELLING Iodinated Contrast Media Allergy Severe Hives Verified 11/15/24 20:07 Course Vital Signs Vital signs: Vital Signs Temperature 97.8 F 02/14/25 21:37 Pulse Rate 75 02/14/25 21:37 Respiratory Rate 17 02/14/25 21:37 Blood Pressure 128/70 02/14/25 21:37 Pulse Oximetry (%) 95 02/14/25 21:37 Oxygen Delivery Method Room Air 02/14/25 21:37 Discharge Plan Prescriptions/Referrals Prescriptions/Med Rec: No Action lisinopril-hydrochlorothiazide 20-12.5 mg Tablet 1 tab PO QDAY gabapentin 300 mg Capsule 300 mg PO BID metformin 750 mg tablet extended release 24 hr 750 mg PO QDAY Patient Comments: TAKE 1 TABLET BY MOUTH DAILY IN THE MORNING atorvastatin 80 mg tablet 80 mg PO HS Patient Comments: TAKE 1 TABLET BY MOUTH EVERY DAY isosorbide mononitrate 30 mg tablet extended release 24 hr 30 mg PO QDAY amlodipine 2.5 mg tablet 2.5 mg PO HS Patient Comments: TAKE 1 TABLET BY MOUTH EVERY DAY clopidogrel 75 mg tablet 75 mg PO QDAY Patient Comments: TAKE 1 TABLET BY MOUTH EVERY DAY FOR HEART AND BRAIN CIRCULATION metoprolol succinate 100 mg tablet extended release 24 hr 100 mg PO QDAY aspirin 81 mg Tablet,Delayed Release (Dr/Ec) 81 mg PO QDAY dicyclomine 10 mg capsule 10 mg PO QDAY Patient Comments: TAKE 1 CAPSULE BY MOUTH TWICE A DAY tramadol 50 mg tablet 50 mg PO TID PRN (Reason: pain) Qty: 20 0RF hydroxyzine HCl 25 mg tablet 25 mg PO QAM clonazepam 1 mg tablet 1 mg PO BID Patient Comments: TAKE 1 TABLET BY MOUTH TWICE A DAY NEEDED FOR ANXIETY trazodone 50 mg Tablet 50 mg PO HS Qty: 30 0RF pantoprazole 40 mg Tablet,Delayed Release (Dr/Ec) 40 mg PO BID Qty: 90 0RF Patient/Caregiver Discharge Instructions Print Language: Bengali
[2025-02-14 22:06] VITALS: BP 122/65; PULSE 73; PULSE 74; RESP 15; RESP 18; TEMP 36.6; O2SAT 92; O2SAT 98
[2025-02-14 22:28] LABS: Basophils % (Auto) 0 % (0-2.5); Eosinophils # (Auto) 0.1 Thou/mm3 (0.0-0.5); Eosinophils % (Auto) 1 % (0-10); Hematocrit 32.8 % (36.0-46.0); Hemoglobin 10.7 g/dL (12.0-16.0); Immature Granulocytes % (Auto) 0 % (0-0); Immature Granulocytes Auto 0.01 Thou/mm3 (0.00-0.00); Lymphocytes # (Auto) 2.9 Thou/mm3 (1.0-4.8); Lymphocytes % (Auto) 51 % (10-50); Mean Corpuscular HGB Conc 32.6 g/dl (31.0-37.0); Mean Corpuscular Hemoglobin 28.9 pg (25.0-35.0); Mean Corpuscular Volume 89 fL (80-100); Monocytes # (Auto) 0.6 Thou/mm3 (0.0-0.8); Monocytes % (Auto) 10 % (0-12); Neutrophils # (Auto) 2.1 Thou/mm3 (1.8-7.7); Neutrophils % (Auto) 38 % (37-80); Nucleated Red Blood Cell % 0 /100 WBC (0); Platelet Count 319 Thou/mm3 (140-440); RDW Standard Deviation 46.5 fL (36.4-46.3); White Blood Count 5.6 Thou/mm3 (3.6-11.0)
[2025-02-14 22:53] LABS: Alanine Aminotransferase 21 U/L (10-49); Albumin, Serum 4.1 gm/dL (3.4-4.8); Albumin/Globulin Ratio 1.6 (1.2-2.2); Alkaline Phosphatase 98 U/L (46-116); Amylase 71 U/L (30-118); Anion Gap 10 (7-16); Aspartate Amino Transferase 17 U/L (0-34); BUN/Creatinine Ratio 27 Ratio (12-20); Bilirubin,Total 0.3 mg/dL (0.3-1.2); Blood Urea Nitrogen 16 mg/dL (9-23); Calcium 9.2 mg/dL (8.3-10.6); Calcium (Corrected) 9.2 mg/dL (8.5-10.1); Carbon Dioxide 25.2 mMol/L (20.0-31.0); Chloride 105 mMol/L (98-107); Creatinine (Component) 0.6 mg/dL (0.6-1.3); Estimated Creatinine Clearance 83.2 mL/min (>60); Globulin 2.6 gm/dL (2.3-3.5); Glucose 164 mg/dL (74-106); Lipase 53 U/L (12-53); Magnesium 1.6 mg/dL (1.6-2.6); Osmolality,Calculated 284 (275-295); Potassium 3.1 mMol/L (3.4-5.1); Sodium 140 mMol/L (136-145); Total Protein 6.7 gm/dL (5.7-8.2); eGFR > 60 See Note
[2025-02-14 23:00] VITALS: BP 119/63; PULSE 77; RESP 13; O2SAT 95
[2025-02-14] MEDS: MORPHINE SULF INJ 10 MG/ML VIAL 4 MG IVP (23:24)
[2025-02-14] MEDS: DiphenhydrAMINE INJ 50 MG/ML VIAL IV (23:25)
[2025-02-14] MEDS: MethylPREDNISolone SOD SUCC 62.5 MG/ML 2ML VIAL 125 MG IVP (23:25)
[2025-02-14] MEDS: ONDANSETRON INJ 2 MG/ML INJ 2 ML 4 MG IV (23:26)
[2025-02-14] MEDS: SODIUM CHLORIDE 0.9% 1000 ML 1,000 ML 999 ML IV (23:33)
[2025-02-15] VITALS: BP 112/63; PULSE 79; RESP 11; O2SAT 94
[2025-02-15] MEDS: POTASSIUM CHLORIDE 10% 20 MEQ/15 ML UDC 40 MEQ PO (00:31)
[2025-02-15] MEDS: Magnesium Sulfate 1 gm Ivpb 1 GM/100 ML BAG IV (00:32)
--- NOTE | 2025-02-15 00:55 | XR_ITS ---
Examination: CT abdomen and pelvis without contrast. Coronal 3-D reconstructions. Sagittal 2-D reconstructions. Date and time of exam:February 15, 2025 at 0103 hours INDICATIONS: Onset of abdominal pain today CTDI: vol (mGy): 7.42 DLP: (mGycm): 380 Technique: Axial images of the abdomen have been obtained, 3 mm slice thickness Intravenous contrast material has not been administered. Low dose protocols were performed. One or more of the following dose reduction techniques were used; automated exposure control, adjustment of the mA and/or KV according to patient size, use of iterative reconstruction technique. Findings: 7 mm posterior right lobe liver calcification Absent gallbladder Spleen demonstrates small calcifications No pancreatic mass Bilateral subcentimeter renal calculi Mild right hydronephrosis secondary to 2.5 mm mid right ureteral calculus Thickening of the wall of the transverse colon and junction with the descending colon, axial image 77, extending over a distance of 4 cm, suspicious for malignant neoplasm of the colon Small bowel lobes show significant fluid distention No pelvic mass Urinary bladder are intact Transpedicular fusion L3-S1 with satisfactory alignment moderate degenerative disc disease L2-L3 IMPRESSION: Bilateral renal calculi Mild right hydronephrosis secondary to 2.5 mm mid right ureteral calculus Suspicious for malignant neoplasm of the colon, focal thickening over 4 cm injection of transverse colon and descending colon, axial image 77 Multiple fluid distended small bowel loops, differential would include ileus, enteritis, or early small bowel obstruction not excluded, clinical correlation and follow-up advised
[2025-02-15 01:12] VITALS: PULSE 78; RESP 12; O2SAT 93
[2025-02-15] MEDS: MORPHINE SULF INJ 10 MG/ML VIAL 6 MG IVP (01:49)
[2025-02-15 02:00] VITALS: BP 114/55; PULSE 78; RESP 9; O2SAT 91
--- NOTE | 2025-02-15 02:14 | PRELIM_ITS ---
CT scan of the abdomen and pelvis without intravenous contrast (axial sections with sagittal and coronal reformats) February 15, 2025 at 0059 hours Clinical History: Abdominal pain. Comparison: No prior study is available for comparison. Findings: Bilateral lower lobes atelectasis. The liver, pancreas, spleen, and adrenals are unremarkable on this noncontrast study. Status post cholecystectomy. Right distal ureteral stone measuring 0.3 cm, the stone is about 5.0 cm from the UVJ, mild right hydroureteronephrosis. Nonobstructing bilateral kidney stones. Dilated small bowel loops measuring up to 3.1 cm associated with air-fluid levels within and no definite transition point. The appendix is within normal limits. There is no mesenteric or retroperitoneal adenopathy. The urinary bladder is unremarkable. There is no free fluid or free air. Posterior fusion hardware between L3, L4, L5, and S1. Status post posterior laminectomy of L4 and L5. Disc spaces at L3-L4, L4-L5, and L5 is 1. The uterus and ovaries are within normal limits. Focal thickening of the colon at the level of the splenic flexure associated with peripheral fat stranding and stenosis of the colon. The uterus and ovaries are within normal limits. Vascular calcifications. Impression: 1. Findings at the colonic splenic flexureare suspicious for colon cancer. 2. Right ureteral stone associated with hydroureteronephrosis. 3. Nonobstructing bilateral nephrolithiasis. 4. Small bowel findings are compatible with enteritis versus developing small bowel obstruction. Discussion Details: Results verbally communicated to : Dr. Baker at 02:03 AM 02/15/2025 Report Electronically Signed By: Bry Torres 02/15/2025 2:13:50 AM [EST]
[2025-02-15 03:00] VITALS: BP 103/64; PULSE 76; RESP 9; O2SAT 92
[2025-02-15] MEDS: KETOROLAC INJ 30 MG/ML VIAL IVP (03:14)
[2025-02-15] MEDS: HYDROmorphone INJ 2 MG/ML VIAL 1 MG IVP (03:18)
--- NOTE | 2025-03-04 05:48 | PD.EDABDPN ---
ED Abdominal Pain RME/HPI General Chief Complaint: GI Bleed Stated complaint: RECTAL BLEEDING Time seen by provider: 02/14/25 21:46 Arrival date/time: 02/14/25 21:21 RME / HPI RME / HPI narrative: This section includes all my notes and documentations, including HPI, PE, and ED course. Myron Baker MD HPI: ROS: All negative except as documented in HPI. Physical Exam: General: Alert and oriented. Eyes: Conjunctivae and lids clear. ENT: No nasal congestion. Neck: Supple. Lungs: No respiratory distress. Skin: Warm and dry. Neuro: Alert and oriented X 3. Physical Exam: General: Alert and oriented. No acute distress when remaining still. Eyes: Conjunctivae and lids clear. ENT: No nasal congestion. Neck: Supple. Heart: RRR. Lungs: No respiratory distress. Good air movement. No rhonchi, wheezing, rales. Abdomen: Soft and nontender. Normal bowel sounds. No distension. No rebound or guarding. Back: No CVA tenderness. Skin: Warm and dry. Neuro: Alert and oriented X 3. Physical Exam: General: Alert and oriented. No acute distress. Eyes: Conjunctivae and lids clear. EOMI. PERRL. ENT: No nasal congestion. Pharynx normal. Tympanic membrane normal bilaterally. Neck: Supple. No lymphadenopathy. No JVD. Heart: RRR. Lungs: No respiratory distress. Good air movement. No rhonchi, wheezing, rales. Chest: No tenderness. Abdomen: Soft and nontender. Normal bowel sounds. No distension. No rebound or guarding. Back: No CVA tenderness. Legs: No clubbing, cyanosis, edema. Skin: Warm and dry. Neuro: Alert and oriented X 3. Cranial Nerves II-XII grossly intact. No peripheral motor deficits. Musculoskeletal: All major joints and bones are not tender with no limited ROM. I reviewed all diagnostic test results. My interpretation of the EKG is My interpretation of the chest x-ray is My review of the CT report is Blood tests and urine tests At this point, diagnoses include Treatment here included Significant improvement Not yet done: I discussed the case with our hospitalist. About the presentation and exam and diagnostics and treatments here. And need of further care in the hospital. Will accept the patient. Not yet done: Based on my best medical judgment, made decision no further evaluation or treatment indicated at this time. Patient understands and agrees to the discharge instructions customized and printed, see below. Discharge Instructions from Dr. Baker: --After evaluation, your symptoms are due to a 3 mm kidney stone which causes severe pain. On --Increase oral fluid to flush your kidneys.? Maintain clear urine. if it's dark or yellow then increase oral fluid.? If you don't do this, you won't pass it.? --Take Flomax to help decrease spasms to increase the chance of passing it.? --Take Zofran as needed for nausea or vomiting. --Take Ketorolac/Toradol for pain control.? And Tylenol with Codeine.? If you are in severe pain, you won't pass it.?? --Strain your urine so you can catch the stone when you pass it.? --See a private doctor on 02/16/2025 for recheck and further care. Ask to review all test results and official radiology reports, to make sure you receive all necessary follow-ups and monitoring, including your official CT reports. This is extremely important to make sure you don't have other serious underlying conditions. To make sure there is no serious intra-abdominal condition, ask for help with more investigation not available here in the ER. Such as EGD or scoping the stomach, colonoscopy or scoping the colon, and referral to see press machine feeder. If needed, ask for a referral to see urologist to remove your kidney stone. --Seek immediate medical care with fever over 100.4, persistent vomiting despite Zofran, intolerable pain, or with any concerns.?? Myron Baker MD Related Data Home Medications ?Medication ?Instructions ?Recorded ?Confirmed amlodipine 2.5 mg tablet 2.5 mg PO HS 09/10/23 01/29/25 atorvastatin 80 mg tablet 80 mg PO HS 09/10/23 01/29/25 clopidogrel 75 mg tablet 75 mg PO QDAY 09/10/23 01/29/25 isosorbide mononitrate 30 mg 30 mg PO QDAY 09/10/23 01/29/25 tablet,extended release 24 hr aspirin 81 mg tablet,delayed 81 mg PO QDAY 07/07/24 01/29/25 release Held on 02/05/25. Instructions: Resume on 02/05/25. Hold until you see your PCP or GI dicyclomine 10 mg capsule 10 mg PO QDAY 07/07/24 01/29/25 metoprolol succinate 100 mg 100 mg PO QDAY 07/07/24 01/29/25 tablet,extended release 24 hr gabapentin 300 mg capsule 300 mg PO BID 10/19/24 01/29/25 lisinopril 20 1 tab PO QDAY 10/19/24 01/29/25 mg-hydrochlorothiazide 12.5 mg tablet metformin 750 mg tablet,extended 750 mg PO QDAY 10/19/24 01/29/25 release 24 hr clonazepam 1 mg tablet 1 mg PO BID 01/29/25 01/29/25 hydroxyzine HCl 25 mg tablet 25 mg PO QAM 01/29/25 01/29/25 Previous Rx's ?Medication ?Instructions ?Recorded tramadol 50 mg tablet 50 mg PO TID PRN pain #20 tabs 10/24/24 pantoprazole 40 mg tablet,delayed 40 mg PO BID #90 tabs 02/05/25 release trazodone 50 mg tablet 50 mg PO HS #30 tabs 02/05/25 acetaminophen 300 mg-codeine 30 mg 2 tab PO Q8H PRN pain #20 tabs 02/15/25 tablet ondansetron 4 mg disintegrating 4 mg PO TID PRN nausea and 02/15/25 tablet vomiting 30 days #10 tabs ciprofloxacin HCl 500 mg tablet 500 mg PO BID #20 tabs 02/17/25 (Cipro) ondansetron 4 mg disintegrating 4 mg PO TID PRN nausea and 02/17/25 tablet vomiting 30 days #10 tabs oxycodone-acetaminophen 5 mg-325 2 tab PO Q8H PRN pain #20 tabs 02/17/25 mg tablet (Percocet) ondansetron 4 mg disintegrating 4 mg PO Q8H PRN nausea and 02/18/25 tablet vomiting #10 tabs Allergies Allergy/AdvReac Type Severity Reaction Status Date / Time codeine Allergy Severe HIVES Verified 02/18/25 07:34 hydrocodone Allergy Severe RASH AND Verified 02/18/25 07:34 SWELLING Iodinated Contrast Media Allergy Severe Hives Verified 02/18/25 07:34 Course Orders Category Date Time Status CT Screening NOW Care 02/14/25 21:48 Completed Miscellaneous Nursing Order NOW Care 02/15/25 02:32 Completed Saline [Insert IV] NOW Care 02/14/25 21:[address] abdomen pelvis wo con Stat Exams 02/15/25 00:55 Completed Amylase Stat Lab 02/14/25 22:13 Completed CBC Stat Lab 02/14/25 22:13 Completed CMP [Comprehensive Metabolic Panel] Stat Lab 02/14/25 22:13 Completed Lipase Stat Lab 02/14/25 22:13 Completed Magnesium Stat Lab 02/14/25 22:13 Completed DiphenhydrAMINE INJ [Benadryl Inj] Med 02/14/25 23:05 Discontinued 50 mg IV X1 STA HYDROmorphone INJ [Dilaudid Inj] Med 02/15/25 02:32 Discontinued 1 mg IVP X1 ONE KCL 10% Liq UDC 15 ML Med 02/14/25 23:23 Discontinued 40 meq PO X1 ONE Ketorolac Inj [Toradol Inj] Med 02/15/25 02:32 Discontinued 30 mg IVP X1 ONE Magnesium Sulfate 1 gm Ivpb [Magnesium Sulfate Ivpb] Med 02/14/25 23:24 Discontinued 1 gm in 100 ml IV X1 MethylPREDNISolone.* [SoluMEDROL Inj] Med 02/14/25 23:05 Discontinued 125 mg IVP X1 ONE Morphine Inj Med 02/14/25 21:47 Discontinued 4 mg IVP X1 ONE Morphine Inj Med 02/15/25 01:37 Discontinued 6 mg IVP X1 ONE Ondansetron Inj [Zofran Inj] Med 02/14/25 21:47 Discontinued 4 mg IV X1 ONE Sodium Chloride 0.9% 1000 ml [Ns] 1,000 ml Med 02/14/25 21:47 Discontinued IV 999 mls/hr Vital Signs Vital signs: Vital Signs Temperature 97.8 F 02/14/25 21:37 Pulse Rate 75 02/14/25 21:37 Respiratory Rate 17 02/14/25 21:37 Blood Pressure 128/70 02/14/25 21:37 Pulse Oximetry (%) 95 02/14/25 21:37 Oxygen Delivery Method Room Air 02/14/25 21:37 Abdominal Pain MDM Medications / Prescriptions Medication administrations:: Medication Administration History Discontinued Medications Diphenhydramine HCl (Diphenhydramine Inj 50 Mg/Ml Vial) 50 mg IV X1 STA Stop: 02/14/25 23:06 Last Admin: 02/14/25 23:25 Dose: 50 mg Documented By: NITIN Hydromorphone HCl (Hydromorphone Inj 2 Mg/Ml Vial) 1 mg IVP X1 ONE Stop: 02/15/25 02:33 Last Admin: 02/15/25 03:18 Dose: 1 mg Documented By: Sodium Chloride (Ns) 1,000 mls @ 999 mls/hr IV .Q1H1M ONE Stop: 02/14/25 22:47 Last Infusion: 02/15/25 01:51 Dose: Infused Documented By: Admin: 02/14/25 23:33 Dose: 999 mls/hr Documented By: NITIN Magnesium Sulfate/Dextrose (Magnesium Sulfate Ivpb) 1 gm in 100 mls @ 100 mls/hr IV X1 ONE Stop: 02/15/25 00:23 Last Infusion: 02/15/25 00:35 Dose: Infused Documented By: Admin: 02/15/25 00:32 Dose: 100 mls/hr Documented By: NITIN Ketorolac Tromethamine (Ketorolac Inj 30 Mg/Ml Vial) 30 mg IVP X1 ONE Stop: 02/15/25 02:33 Last Admin: 02/15/25 03:14 Dose: 30 mg Documented By: Methylprednisolone Sodium Succinate (Methylprednisolone Sod Succ 62.5 Mg/Ml 2ml Vial) 125 mg IVP X1 ONE Stop: 02/14/25 23:06 Last Admin: 02/14/25 23:25 Dose: 125 mg Documented By: NITIN Morphine Sulfate (Morphine Sulf Inj 10 Mg/Ml Vial) 4 mg IVP X1 ONE Stop: 02/14/25 21:48 Last Admin: 02/14/25 23:24 Dose: 4 mg Documented By: NITIN Morphine Sulfate (Morphine Sulf Inj 10 Mg/Ml Vial) 6 mg IVP X1 ONE Stop: 02/15/25 01:38 Last Admin: 02/15/25 01:49 Dose: 6 mg Documented By: NITIN Ondansetron HCl (Ondansetron Inj 2 Mg/Ml Inj 2 Ml) 4 mg IV X1 ONE; Protocol Stop: 02/14/25 21:48 Last Admin: 02/14/25 23:26 Dose: 4 mg Documented By: NITIN Potassium Chloride (Potassium Chloride 10% 20 Meq/15 Ml Udc) 40 meq PO X1 ONE Stop: 02/14/25 23:24 Last Admin: 02/15/25 00:31 Dose: 40 meq Documented By: NITIN Discharge Plan Plan Patient Disposition: HOME (Self Care) Prescriptions/Referrals Prescriptions/Med Rec: New acetaminophen-codeine 300-30 mg tablet 2 tab PO Q8H MDD 6 PRN (Reason: pain) Qty: 20 0RF ondansetron 4 mg tablet,disintegrating 4 mg PO TID PRN (Reason: nausea and vomiting) 30 Days Qty: 10 0RF No Action lisinopril-hydrochlorothiazide 20-12.5 mg Tablet 1 tab PO QDAY gabapentin 300 mg Capsule 300 mg PO BID metformin 750 mg tablet extended release 24 hr 750 mg PO QDAY Patient Comments: TAKE 1 TABLET BY MOUTH DAILY IN THE MORNING atorvastatin 80 mg tablet 80 mg PO HS Patient Comments: TAKE 1 TABLET BY MOUTH EVERY DAY isosorbide mononitrate 30 mg tablet extended release 24 hr 30 mg PO QDAY amlodipine 2.5 mg tablet 2.5 mg PO HS Patient Comments: TAKE 1 TABLET BY MOUTH EVERY DAY clopidogrel 75 mg tablet 75 mg PO QDAY Patient Comments: TAKE 1 TABLET BY MOUTH EVERY DAY FOR HEART AND BRAIN CIRCULATION metoprolol succinate 100 mg tablet extended release 24 hr 100 mg PO QDAY aspirin 81 mg Tablet,Delayed Release (Dr/Ec) 81 mg PO QDAY dicyclomine 10 mg capsule 10 mg PO QDAY Patient Comments: TAKE 1 CAPSULE BY MOUTH TWICE A DAY tramadol 50 mg tablet 50 mg PO TID PRN (Reason: pain) Qty: 20 0RF hydroxyzine HCl 25 mg tablet 25 mg PO QAM clonazepam 1 mg tablet 1 mg PO BID Patient Comments: TAKE 1 TABLET BY MOUTH TWICE A DAY NEEDED FOR ANXIETY trazodone 50 mg Tablet 50 mg PO HS Qty: 30 0RF pantoprazole 40 mg Tablet,Delayed Release (Dr/Ec) 40 mg PO BID Qty: 90 0RF ciprofloxacin HCl [Cipro] 500 mg tablet 500 mg PO BID Qty: 20 0RF oxycodone-acetaminophen [Percocet] 5-325 mg tablet 2 tab PO Q8H MDD 6 PRN (Reason: pain) Qty: 20 0RF ondansetron 4 mg tablet,disintegrating 4 mg PO TID PRN (Reason: nausea and vomiting) 30 Days Qty: 10 0RF ondansetron 4 mg tablet,disintegrating 4 mg PO Q8H PRN (Reason: nausea and vomiting) Qty: 10 0RF Referrals: Sun Webb NP [Primary Care Provider] - In 1 week Problem List Clinical Impression: Kidney stone Patient/Caregiver Discharge Instructions Discharge Activity: activity as tolerated Education Materials: ED Kidney Stone w/ Colic Additional Instructions: Discharge Instructions from Dr. Baker: --After evaluation, your symptoms are due to a 3 mm kidney stone which causes severe pain. On --Increase oral fluid to flush your kidneys.? Maintain clear urine. if it's dark or yellow then increase oral fluid.? If you don't do this, you won't pass it.? --Take Flomax to help decrease spasms to increase the chance of passing it.? --Take Zofran as needed for nausea or vomiting. --Take Ketorolac/Toradol for pain control.? And Tylenol with Codeine.? If you are in severe pain, you won't pass it.?? --Strain your urine so you can catch the stone when you pass it.? --See a private doctor on 02/16/2025 for recheck and further care. Ask to review all test results and official radiology reports, to make sure you receive all necessary follow-ups and monitoring, including your official CT reports. This is extremely important to make sure you don't have other serious underlying conditions. To make sure there is no serious intra-abdominal condition, ask for help with more investigation not available here in the ER. Such as EGD or scoping the stomach, colonoscopy or scoping the colon, and referral to see press machine feeder. If needed, ask for a referral to see urologist to remove your kidney stone. --Seek immediate medical care with fever over 100.4, persistent vomiting despite Zofran, intolerable pain, or with any concerns.?? Print Language: Wolof Stand Alone Forms: Ceci Award Info., Patient Portal Info Letter
== END 2025-02-15 03:55 | disposition home or self-care (01) ==
PROVIDERS: Emergency Provider Emergency Medicine; PCP Nurse Practitioner Family
DX: K62.5 Hemorrhage of anus and rectum (principal); N20.0 Calculus of kidney
CPT/HCPCS: 36415; 74176; 80053; 82150; 83690; 83735; 85025; 96374; 96375; 96376; 99284; J1200; J1885; J2270; J2405; J2919; J3475; J3490; J7030; A9270

== ENCOUNTER 2025-02-16 20:46 | Emergency (ER) | payer MEDICARE, BC, SELFPAY ==
[2025-02-16 20:50] VITALS: BP 102/62; PULSE 76; RESP 20; TEMP 36.6; O2SAT 95
[2025-02-16 20:55] VITALS: PULSE 78; RESP 20
[2025-02-16 20:59] VITALS: BMI 25.9
--- NOTE | 2025-02-16 21:19 | EKG_ITS ---
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1960 Requested By: Dane Vila Order Number: [id number] Reading MD: Dane Vila Measurements Intervals [place] Rate: 74 P: 52 VA: 163 QRS: 64 QRSD: 86 T: 221 QT: 445 QTc: 495 Interpretive Statements SINUS RHYTHM WITH OCCASIONAL VENTRICULAR PREMATURE COMPLEXES LOW QRS VOLTAGE IN PRECORDIAL LEADS [QRS DEFLECTION < 1.0 mV IN CHEST LEADS] ST DEVIATION AND MODERATE T-WAVE ABNORMALITY, CONSIDER ANTEROLATERAL ISCHEMIA [-0.1+ mV T-WAVE IN V3-V6] ST DEVIATION AND MODERATE T-WAVE ABNORMALITY, CONSIDER INFERIOR ISCHEMIA [-0.1+ mV T-WAVE IN II/aVF] Compared to ECG 02/01/2025 19:34:15 Ventricular premature complex(es) now present Low QRS voltage now present Sinus tachycardia no longer present T-wave abnormality still present Possible ischemia still present /store/S0/[id number]/ecg/[id number].pdf
--- NOTE | 2025-02-16 21:22 | XR_ITS ---
Examination: CTA chest, with intravenous contrast. CTA abdomen, with intravenous contrast. CTA pelvis, with intravenous contrast. 2-D sagittal and coronal reconstructions. 3-D reconstructions. Date and time of exam: February 16, 2025 at 11:27 PM Comparison February 15, 2025 INDICATIONS: Chest and abdominal pain today, history ischemic bowel CTDI vol (mgy) 8.67 DLP (MGycm) 622 Technique: Multiple CTA images, 2.0 mm slice thickness, obtained chest, abdomen, pelvis, with the high-resolution 64 slice scanner. 100 cc Isovue 370 is administered intravenously. Sagittal and coronal 2-D reconstructions are obtained. 3-D reconstructions, angiographic images are obtained. 3-D postprocessing, including vascular maximum intensity projections. Low dose protocols were performed. One or more of the following dose reduction techniques were used; automated exposure control, adjustment of the mA and/or KV according to patient size, use of iterative reconstruction technique. Findings: Bilateral poorly defined thyroid nodules No thoracic aortic aneurysm dilatation or dissection Significant calcification left main left anterior descending coronary artery No pulmonary artery filling defects No paratracheal tracheobronchial or bronchopulmonary adenopathy Atelectasis in the lower lung zones No visualized liver or splenic lesion Absent gallbladder No common bile duct stones Inflammation around the colon at the splenic flexure, axial image 232 with focal narrowing axial image 230 Minimal right hydronephrosis, no current ureteral calculi Abdominal aorta is calcified and no aneurysmal dilatation Normal appendix Urinary bladder intact Transpedicular lumbar fusion L3-S1 with satisfactory alignment Hips intact IMPRESSION: Negative for pulmonary artery emboli No pneumonia or pulmonary edema Significant inflammation involving the colon at the splenic flexure with thickening and focal narrowing, differential includes malignant neoplasm of the colon, focal area of ischemia in the colon, clinical correlation advised
--- NOTE | 2025-02-16 21:35 | PD.EDABDPN ---
ED Abdominal Pain RME/HPI General Chief Complaint: Abdominal Pain Stated complaint: ABD PAIN Time seen by provider: 02/16/25 21:16 Arrival date/time: 02/16/25 20:46 64 year old female with past medical history of GI bleed, ischemic bowl, Gastritis, kidney stone, GERD with c/o of sharp LLQ pain today at 2030. pt had colonoscopy a few weeks ago for GI bleed. Pt report constipation for 2 days. pt has an appointment with Dr. Aviles this sunday and Dr. Dillard the following sunday LOCATION: LLQ tenderness SEVERITY: Symptoms are described as being severe with limitations on activities of daily living QUALITY: Symptoms are described as being sharp CONTEXT: The patient is unable to identify any inciting events. DURATION/TIMING: The symptoms started approximately one day ago and have been waxing/waning but always present without ever completely resolving. ASSOCIATED SYMPTOMS: The patient is unable to identify any other associated symptoms. MODIFYING FACTORS: The patient is unable to identify any alleviating or aggravating symptoms. PERTINENT ROS: no fevers, no anorexia, no nausea or vomiting, no diarrhea, no ripping or tearing sensations, no syncope or presyncopal symptoms, denies trauma, denies genital pain denies UTI sx denies rectal bleeding denies rash REVIEW OF SYSTEMS: See History of Present Illness - with the exception of those mentioned in the history of present illness, all other systems reviewed and reported as negative GENERAL: In general the patient is awake, interactive, in an emergency department rpeculiar. HEAD/EYES/EARS/NOSE/THROAT: normo-cephalic, atraumatic, mucus membranes are moist, anicteric, palpebral conjunctiva is pink, trachea is midline. CARDIOVASCULAR: regular rate and regular rhythm, no murmurs, heart sounds are not distant, strong pulses in all four extremities that are equal and symmetric bilateral upper and lower extremities, normal capillary refill. CHEST/PULMONARY: normal chest rise and fall, good air movement, clear to auscultation bilaterally, normal inspiratory to expiratory ratios without evidence of respiratory distress. NECK: No midline/Paraspinal tenderness, no step off ROM/Strenght intact No Kernig and bruzinski sign. No trauma ABDOMEN: soft, LLQ tenderness, no cva tenderness, no masses appreciated BACK: normal range of motion without pain. NEUROLOGICAL: cranio-facial features are symmetric, moves all four extremities equally without obvious limitations or weakness. EXTREMITY: no tenderness to palpation over the long bones or large joints of the bilateral upper and lower extremities, no joint swelling, no joint erythema, no signs of trauma, no unilateral leg swelling and no peripheral edema. SKIN: warm, dry, well-perfused, no jaundice, no rash, no telangiectasias or petechia. PSYCH: calm, cooperative, no evidence of psychosis or agitation Related Data Home Medications ?Medication ?Instructions ?Recorded ?Confirmed amlodipine 2.5 mg tablet 2.5 mg PO HS 09/10/23 01/29/25 atorvastatin 80 mg tablet 80 mg PO HS 09/10/23 01/29/25 clopidogrel 75 mg tablet 75 mg PO QDAY 09/10/23 01/29/25 isosorbide mononitrate 30 mg 30 mg PO QDAY 09/10/23 01/29/25 tablet,extended release 24 hr aspirin 81 mg tablet,delayed 81 mg PO QDAY 07/07/24 01/29/25 release Held on 02/05/25. Instructions: Resume on 02/05/25. Hold until you see your PCP or GI dicyclomine 10 mg capsule 10 mg PO QDAY 07/07/24 01/29/25 metoprolol succinate 100 mg 100 mg PO QDAY 07/07/24 01/29/25 tablet,extended release 24 hr gabapentin 300 mg capsule 300 mg PO BID 10/19/24 01/29/25 lisinopril 20 1 tab PO QDAY 10/19/24 01/29/25 mg-hydrochlorothiazide 12.5 mg tablet metformin 750 mg tablet,extended 750 mg PO QDAY 10/19/24 01/29/25 release 24 hr clonazepam 1 mg tablet 1 mg PO BID 01/29/25 01/29/25 hydroxyzine HCl 25 mg tablet 25 mg PO QAM 01/29/25 01/29/25 Previous Rx's ?Medication ?Instructions ?Recorded tramadol 50 mg tablet 50 mg PO TID PRN pain #20 tabs 10/24/24 pantoprazole 40 mg tablet,delayed 40 mg PO BID #90 tabs 02/05/25 release trazodone 50 mg tablet 50 mg PO HS #30 tabs 02/05/25 acetaminophen 300 mg-codeine 30 mg 2 tab PO Q8H PRN pain #20 tabs 02/15/25 tablet ketorolac 10 mg tablet 10 mg PO Q8H PRN pain 5 days #10 02/15/25 tabs ondansetron 4 mg disintegrating 4 mg PO TID PRN nausea and 02/15/25 tablet vomiting 30 days #10 tabs tamsulosin 0.4 mg capsule (Flomax) 0.4 mg PO QDAY 7 days #7 caps 02/15/25 ciprofloxacin HCl 500 mg tablet 500 mg PO BID #20 tabs 02/17/25 (Cipro) ondansetron 4 mg disintegrating 4 mg PO TID PRN nausea and 02/17/25 tablet vomiting 30 days #10 tabs oxycodone-acetaminophen 5 mg-325 2 tab PO Q8H PRN pain #20 tabs 02/17/25 mg tablet (Percocet) Allergies Allergy/AdvReac Type Severity Reaction Status Date / Time codeine Allergy Severe HIVES Verified 11/15/24 20:07 hydrocodone Allergy Severe RASH AND Verified 11/15/24 20:07 SWELLING Iodinated Contrast Media Allergy Severe Hives Verified 11/15/24 20:07 Course Course Course Narrative: basic labs, IV fluids, morphine 4mg/4zofran, CTA, GI consult Quality Measures none Orders Category Date Time Status CT Screening NOW Care 02/16/25 21:23 Completed EKG (ED ONLY) *Do not use* NOW Care 02/16/25 21:20 Completed IV [Insert IV] STAT Care 02/16/25 21:[address] angio chest abdomen pelvis Stat Exams 02/16/25 21:22 Completed EKG (ED Only) Stat Exams 02/16/25 21:19 Draft CBC Stat Lab 02/16/25 21:25 Completed CMP [Comprehensive Metabolic Panel] Stat Lab 02/16/25 21:25 Completed Lipase Stat Lab 02/16/25 21:25 Completed Troponin I Stat Lab 02/16/25 21:25 Completed UA [Urinalysis] Stat Lab 02/17/25 00:48 Completed DiphenhydrAMINE INJ [Benadryl Inj] Med 02/16/25 21:24 Discontinued 50 mg IVP X1 ONE HYDROmorphone INJ [Dilaudid Inj] Med 02/16/25 22:32 Discontinued 1 mg IVP X1 ONE HYDROmorphone INJ [Dilaudid Inj] Med 02/17/25 00:53 Discontinued 1 mg IVP X1 ONE HYDROmorphone INJ [Dilaudid Inj] Med 02/17/25 01:05 Discontinued 2 mg IVP X1 ONE KCL 10% Liq UDC 15 ML Med 02/16/25 23:52 Discontinued 40 meq PO X1 ONE Morphine Inj Med 02/16/25 21:19 Discontinued 4 mg IVP X1 ONE Ondansetron Inj [Zofran Inj] Med 02/16/25 21:19 Discontinued 4 mg IV X1 ONE Sodium Chloride 0.9% 1000 ml [Ns] 1,000 ml Med 02/16/25 21:21 Discontinued IV 999 mls/hr Reevaluation(s) Reevaluation #1: 2233 per nurse pain is continues with morphine 4mg, CT pending, diladid 1mg order for pain control Vital Signs Vital signs: Vital Signs Temperature 97.8 F 02/16/25 20:50 Pulse Rate 76 02/16/25 20:50 Respiratory Rate 20 02/16/25 20:50 Blood Pressure 102/62 02/16/25 20:50 Pulse Oximetry (%) 95 02/16/25 20:50 Oxygen Delivery Method Room Air 02/16/25 20:50 Procedures -ED EKG Interpretation #1: Date of EK02/16/25 Time of EK:28 Rate: 74 Interpretation: Reviewed by me EKG Impression: No acute ST-T changes, PVCs, No ectopy and Sinus arrhythmia Abdominal Pain MDM Patient data External records reviewed:: [facility] previous records Clinical information provided by:: patient Social determinants that could affect healthcare access:: none Patient has the following chronic illnesses:: as stated in chart How is presenting disease/condition affected by chronic disease/condition?: exacerbated by Evaluation data The following diagnostics were reviewed and interpreted by me:: lab results, radiology exam(s) and EKG tracing(s) Lab and/or radiology exams considered but not ordered:: n/a Interpretation Summary: cbc/CMP wnl/similar from previous urine no infection trop: wnl CTA : Negative for pulmonary artery emboli No pneumonia or pulmonary edema Significant inflammation involving the colon at the splenic flexure with thickening and focal narrowing, differential includes malignant neoplasm of the colon, focal area of ischemia in the colon, clinical correlation advised CT abd 02/15/25: colonic splenic flexure colon cancer, right ureteral stone with hydroureteronephrosis and enteritis or early sbo? [address] Olivia ERICKSON pending, if normal discharge per Dr. aviles if abnormal to call Dr. Aviles back Medications / Prescriptions Medications or Prescriptions considered but not ordered:: n/a Medication administrations:: Medication Administration History Discontinued Medications Diphenhydramine HCl (Diphenhydramine Inj 50 Mg/Ml Vial) 50 mg IVP X1 ONE Stop: 02/16/25 21:25 Last Admin: 02/16/25 21:40 Dose: 50 mg Documented By: JAKE Hydromorphone HCl (Hydromorphone Inj 2 Mg/Ml Vial) 1 mg IVP X1 ONE Stop: 02/16/25 22:33 Last Admin: 02/16/25 22:54 Dose: 1 mg Documented By: EF Hydromorphone HCl (Hydromorphone Inj 2 Mg/Ml Vial) 1 mg IVP X1 ONE Stop: 02/17/25 00:54 Last Admin: 02/17/25 01:19 Dose: Not Given Documented By: SF Non-Admin Reason: Discontinued Hydromorphone HCl (Hydromorphone Inj 2 Mg/Ml Vial) 2 mg IVP X1 ONE Stop: 02/17/25 01:06 Last Admin: 02/17/25 01:18 Dose: 2 mg Documented By: HERBER Sodium Chloride (Ns) 1,000 mls @ 999 mls/hr IV .Q1H1M ONE Stop: 02/16/25 22:21 Last Infusion: 02/16/25 22:42 Dose: Infused Documented By: Admin: 02/16/25 21:41 Dose: 999 mls/hr Documented By: JAKE Morphine Sulfate (Morphine Sulf Inj 10 Mg/Ml Vial) 4 mg IVP X1 ONE Stop: 02/16/25 21:20 Last Admin: 02/16/25 21:40 Dose: 4 mg Documented By: JAKE Ondansetron HCl (Ondansetron Inj 2 Mg/Ml Inj 2 Ml) 4 mg IV X1 ONE; Protocol Stop: 02/16/25 21:20 Last Admin: 02/16/25 21:41 Dose: 4 mg Documented By: JAKE Potassium Chloride (Potassium Chloride 10% 20 Meq/15 Ml Udc) 40 meq PO X1 ONE Stop: 02/16/25 23:53 Last Admin: 02/17/25 00:25 Dose: 40 meq Documented By: WO n/a Consultations Consultation(s) initiated? (list below): Yes Consultation #1 (Physician, Specialty, Details): Dr. Aviles report to get basic labs and CTA chest/abd if normal can go home. [address] Olivia ERICKSON pending, 1121 review CTA, pt was dischcarage from Ed. Diagnosis Differential diagnosis abdominal pain: abdominal pain, calculus of kidney, constipation, diverticulitis, gastroenteritis, pancreatitis, small bowel obstruction and other (colitis ) Most likely diagnosis given after review of the tests above:: uvj stone, enteritis Admission Indicated Admission indicated?: not indicated Admission Request Was there a request for admission?: No Disposition Plan Disposition Plan: Discharge Discharge Attestation Discharge Attestation: The patient and all family members were given an opportunity to ask questions and understood the discharge instructions. Discharge instructions specifically effects, indications for sooner follow up or return to the emergency department, and the expected course of current diagnosis. Patient condition: Stable Discharge Plan Plan Patient Disposition: HOME (Self Care) Prescriptions/Referrals Prescriptions/Med Rec: New ciprofloxacin HCl [Cipro] 500 mg tablet 500 mg PO BID Qty: 20 0RF oxycodone-acetaminophen [Percocet] 5-325 mg tablet 2 tab PO Q8H MDD 6 PRN (Reason: pain) Qty: 20 0RF ondansetron 4 mg tablet,disintegrating 4 mg PO TID PRN (Reason: nausea and vomiting) 30 Days Qty: 10 0RF No Action lisinopril-hydrochlorothiazide 20-12.5 mg Tablet 1 tab PO QDAY gabapentin 300 mg Capsule 300 mg PO BID metformin 750 mg tablet extended release 24 hr 750 mg PO QDAY Patient Comments: TAKE 1 TABLET BY MOUTH DAILY IN THE MORNING atorvastatin 80 mg tablet 80 mg PO HS Patient Comments: TAKE 1 TABLET BY MOUTH EVERY DAY isosorbide mononitrate 30 mg tablet extended release 24 hr 30 mg PO QDAY amlodipine 2.5 mg tablet 2.5 mg PO HS Patient Comments: TAKE 1 TABLET BY MOUTH EVERY DAY clopidogrel 75 mg tablet 75 mg PO QDAY Patient Comments: TAKE 1 TABLET BY MOUTH EVERY DAY FOR HEART AND BRAIN CIRCULATION metoprolol succinate 100 mg tablet extended release 24 hr 100 mg PO QDAY aspirin 81 mg Tablet,Delayed Release (Dr/Ec) 81 mg PO QDAY dicyclomine 10 mg capsule 10 mg PO QDAY Patient Comments: TAKE 1 CAPSULE BY MOUTH TWICE A DAY tramadol 50 mg tablet 50 mg PO TID PRN (Reason: pain) Qty: 20 0RF hydroxyzine HCl 25 mg tablet 25 mg PO QAM clonazepam 1 mg tablet 1 mg PO BID Patient Comments: TAKE 1 TABLET BY MOUTH TWICE A DAY NEEDED FOR ANXIETY trazodone 50 mg Tablet 50 mg PO HS Qty: 30 0RF pantoprazole 40 mg Tablet,Delayed Release (Dr/Ec) 40 mg PO BID Qty: 90 0RF acetaminophen-codeine 300-30 mg tablet 2 tab PO Q8H MDD 6 PRN (Reason: pain) Qty: 20 0RF ketorolac 10 mg tablet 10 mg PO Q8H PRN (Reason: pain) 5 Days Qty: 10 0RF ondansetron 4 mg tablet,disintegrating 4 mg PO TID PRN (Reason: nausea and vomiting) 30 Days Qty: 10 0RF tamsulosin [Flomax] 0.4 mg capsule 0.4 mg PO QDAY 7 Days Qty: 7 0RF Referrals: No Primary/Family,Physician [Primary Care Provider] - In 1 week Problem List Clinical Impression: Colitis Patient/Caregiver Discharge Instructions Discharge Activity: activity as tolerated Education Materials: ED Gastroenteritis, Noninfectious Additional Instructions: Discharge Instructions from Dr. Baker printed for you: 1. Your extensive evaluation here was discussed with Dr. Aviles, your auxiliary engineer. 2. According to Dr. Aviles, your current symptoms are due to ischemic colitis, which recent biopsy showed. 3. Cipro for the inflammation/infection. Zofran for nausea/vomiting. Percocets for severe pain. 4. Clear liquid diet for 24 hours and advance slowly as tolerated. 5. See Dr. Aviles on 02/19/2025 as scheduled. Ask to review all test results and official radiology reports, to make sure you receive all necessary follow-ups and monitoring. 6. Seek immediate medical care with worsening or with any concerns. Print Language: Gabonese Stand Alone Forms: Ceci Award Info., Patient Portal Info Letter Attestation Attestation I took over the care from LUISA Junior at 11 PM on 02/16/2025, see his notes for complete H&P and ED course. My review of the abdominal CT report is: Significant inflammation involving the colon at the splenic flexure with thickening and focal narrowing, differential includes malignant neoplasm of the colon, focal area of ischemia in the colon. I discussed the case with Dr. Aviles. About the presentation and exam and diagnostics and treatments here. And possible need of further care in the hospital. According to Frankc, she has known ischemic colitis based on recent biopsy. No need for admission. Recommended Cipro and pain management and outpatient follow-up with him. During my watch, she was given Dilaudid 2 mg IV. Based on my best medical judgment, made decision no further evaluation or treatment indicated at this time. Patient understands and agrees to the discharge instructions customized and printed, see below. Discharge Instructions from Dr. Baker printed for you: 1. Your extensive evaluation here was discussed with Dr. Aviles, your auxiliary engineer. 2. According to Dr. Aviles, your current symptoms are due to ischemic colitis, which recent biopsy showed. 3. Cipro for the inflammation/infection. Zofran for nausea/vomiting. Percocets for severe pain. 4. Clear liquid diet for 24 hours and advance slowly as tolerated. 5. See Dr. Aviles on 02/19/2025 as scheduled. Ask to review all test results and official radiology reports, to make sure you receive all necessary follow-ups and monitoring. 6. Seek immediate medical care with worsening or with any concerns. Myron Baker MD
[2025-02-16] MEDS: MORPHINE SULF INJ 10 MG/ML VIAL 4 MG IVP (21:40)
[2025-02-16] MEDS: DiphenhydrAMINE INJ 50 MG/ML VIAL IVP (21:40)
[2025-02-16] MEDS: SODIUM CHLORIDE 0.9% 1000 ML 1,000 ML 999 ML IV (21:41)
[2025-02-16] MEDS: ONDANSETRON INJ 2 MG/ML INJ 2 ML 4 MG IV (21:41)
[2025-02-16 22:14] LABS: Basophils % (Auto) 0 % (0-2.5); Eosinophils # (Auto) 0.1 Thou/mm3 (0.0-0.5); Eosinophils % (Auto) 1 % (0-10); Hematocrit 32.1 % (36.0-46.0); Hemoglobin 10.4 g/dL (12.0-16.0); Immature Granulocytes % (Auto) 0 % (0-0); Immature Granulocytes Auto 0.01 Thou/mm3 (0.00-0.00); Lymphocytes # (Auto) 3.4 Thou/mm3 (1.0-4.8); Lymphocytes % (Auto) 44 % (10-50); Mean Corpuscular HGB Conc 32.4 g/dl (31.0-37.0); Mean Corpuscular Hemoglobin 28.7 pg (25.0-35.0); Mean Corpuscular Volume 88 fL (80-100); Monocytes # (Auto) 0.6 Thou/mm3 (0.0-0.8); Monocytes % (Auto) 8 % (0-12); Neutrophils # (Auto) 3.7 Thou/mm3 (1.8-7.7); Neutrophils % (Auto) 47 % (37-80); Nucleated Red Blood Cell % 0 /100 WBC (0); Platelet Count 319 Thou/mm3 (140-440); RDW Standard Deviation 47.3 fL (36.4-46.3); Red Blood Count 3.63 Miln/mm3 (4.00-5.20); White Blood Count 7.7 Thou/mm3 (3.6-11.0)
[2025-02-16 22:28] LABS: Alanine Aminotransferase 17 U/L (10-49); Albumin/Globulin Ratio 1.6 (1.2-2.2); Alkaline Phosphatase 82 U/L (46-116); Anion Gap 11 (7-16); Aspartate Amino Transferase 13 U/L (0-34); BUN/Creatinine Ratio 33 Ratio (12-20); Bilirubin,Total 0.2 mg/dL (0.3-1.2); Blood Urea Nitrogen 23 mg/dL (9-23); Calcium 9.8 mg/dL (8.3-10.6); Calcium (Corrected) 9.8 mg/dL (8.5-10.1); Carbon Dioxide 25.3 mMol/L (20.0-31.0); Chloride 107 mMol/L (98-107); Creatinine (Component) 0.7 mg/dL (0.6-1.3); Estimated Creatinine Clearance 70.6 mL/min (>60); Globulin 2.5 gm/dL (2.3-3.5); Glucose 159 mg/dL (74-106); Lipase 54 U/L (12-53); Osmolality,Calculated 291 (275-295); Potassium 3.2 mMol/L (3.4-5.1); Sodium 143 mMol/L (136-145); Total Protein 6.5 gm/dL (5.7-8.2); Troponin I < 0.020 ng/mL (0.0-0.045); eGFR > 60 See Note
[2025-02-16] MEDS: HYDROmorphone INJ 2 MG/ML VIAL 1 MG IVP (22:54)
[2025-02-16 23:36] VITALS: BP 109/64; PULSE 76; RESP 12; TEMP 36.4; O2SAT 98
[2025-02-17] MEDS: POTASSIUM CHLORIDE 10% 20 MEQ/15 ML UDC 40 MEQ PO (00:25)
[2025-02-17 01:14] LABS: Collection Type, Urine Voided
[2025-02-17] MEDS: HYDROmorphone INJ 2 MG/ML VIAL IVP (01:18)
[2025-02-17 01:27] LABS: Bilirubin,Urine Negative (Negative); Blood,Urine Negative (Negative); Clarity,Urine Clear (Clear/Hazy); Color,Urine Colorless (Lt Yel-Yel); Glucose, Urine Negative (Negative); Ketones,Urine Negative (Negative); Leukocyte Esterase,Urine Positive (Negative); Nitrite,Urine Negative (Negative); PH,Urine 5.5 (5.0-7.0); Protein,Urine Negative (Neg - Trace); RBC,Urine 2 /hpf (0-3); Specific Gravity,Urine 1.037 (1.001-1.035); Squamous Epithelial Cell,Urine < 1 /hpf (0-5); Urobilinogen,Urine Negative mg/dL (0.0-1.0); WBC,Urine 13 /hpf (0-5)
[2025-02-17 01:29] VITALS: BP 128/73; PULSE 76; RESP 15; TEMP 36.3; O2SAT 99
== END 2025-02-17 01:30 | disposition home or self-care (01) ==
PROVIDERS: Physician Assistant; Emergency Provider Emergency Medicine
DX: K52.9 Noninfective gastroenteritis and colitis, unspecified (principal); K21.9 Gastro-esophageal reflux disease without esophagitis
CPT/HCPCS: 36415; 71275; 74174; 80053; 81001; 83690; 84484; 85025; 93005; 96361; 96374; 96375; 99285; A4649; J1200; J2270; J2405; J3490; J7030; Q9967; A9270

== ENCOUNTER → 2025-02-16 | Outpatient (CLI) | payer MEDICARE, BC, SELFPAY ==
[2025-02-16 11:57] LABS: Basophils % (Auto) 0 % (0-2.5); Eosinophils % (Auto) 0 % (0-10); Hematocrit 33.1 % (36.0-46.0); Hemoglobin 10.5 g/dL (12.0-16.0); Immature Granulocytes % (Auto) 0 % (0-0); Immature Granulocytes Auto 0.01 Thou/mm3 (0.00-0.00); Lymphocytes # (Auto) 2.4 Thou/mm3 (1.0-4.8); Lymphocytes % (Auto) 40 % (10-50); Mean Corpuscular HGB Conc 31.7 g/dl (31.0-37.0); Mean Corpuscular Hemoglobin 28.1 pg (25.0-35.0); Mean Corpuscular Volume 89 fL (80-100); Monocytes # (Auto) 0.5 Thou/mm3 (0.0-0.8); Monocytes % (Auto) 8 % (0-12); Neutrophils # (Auto) 3.2 Thou/mm3 (1.8-7.7); Neutrophils % (Auto) 52 % (37-80); Nucleated Red Blood Cell % 0 /100 WBC (0); Platelet Count 336 Thou/mm3 (140-440); RDW Standard Deviation 47.2 fL (36.4-46.3); Red Blood Count 3.74 Miln/mm3 (4.00-5.20); White Blood Count 6.2 Thou/mm3 (3.6-11.0)
== END | disposition home or self-care (01) ==
PROVIDERS: PCP Nurse Practitioner Family; Referring Provider Specialist; Visit Provider Specialist
DX: R58 Hemorrhage, not elsewhere classified (principal)
CPT/HCPCS: 36415; 85025

== ENCOUNTER 2025-02-18 07:19 | Emergency (ER) | payer MEDICARE, BC, SELFPAY ==
[2025-02-18] VITALS (10 sets, daily range): BP systolic 107–155; BP diastolic 56–84; PULSE 69–76; RESP 14–87; TEMP 36.4–36.6; O2SAT 91–96; BMI 25.9
--- NOTE | 2025-02-18 07:27 | PC.NURSE ---
Brought by EMS for abdominal pain from that's been occurring for 2-3weeks
--- NOTE | 2025-02-18 08:50 | XR_ITS ---
Examination: CT abdomen with intravenous contrast CT pelvis with intravenous contrast 2-D coronal reconstructions 2-D sagittal reconstructions Date and time of exam:February 18, 2025 1228 hours Comparison February 16, 2025 INDICATIONS: Constipation vomiting nausea beginning 3 days ago. CTDI: vol (mGy) 6.98 DLP: (mGycm) 384 Technique: Multiple axial sections of the abdomen and pelvis have been obtained. 64 slice high-resolution scanner used. 3 mm axial sections have been obtained, post intravenous injection 60 cc Isovue-370 2-D sagittal, coronal reconstructions obtained. Low dose protocols were performed. One or more of the following dose reduction techniques were used; automated exposure control, adjustment of the mA and/or KV according to patient size, use of iterative reconstruction technique. Findings: No focal liver or splenic lesions Absent gallbladder Common bile duct 9 mm No pancreatic mass no peripancreatic edema no dilated pancreatic duct Again noted focal narrowing with soft tissue thickening involving the splenic flexure of the colon with inflammatory change, axial image 66 No bowel obstruction Heavy abdominal aortic calcification common iliac artery calcification No hydronephrosis, possible subcentimeter right renal calculi Abundant stool in the colon proximal to the splenic flexure narrowing Free fluid in the pelvis, mild Urinary bladder intact Transpedicular lumbar fusion L3-S1, severe osteopenia IMPRESSION: Again noted focal narrowing with inflammation splenic fracture of the colon Differential would favor malignant neoplasm of the colon, recommend colonoscopy follow-up Differential would also include focal severe nonspecific inflammation as well as ischemic change, clinical correlation advised
--- NOTE | 2025-02-18 08:54 | PD.EDADULT ---
ED General RME/HPI General Chief complaint: Abdominal Pain Stated complaint: ABD PAIN Time Seen by Provider: 02/18/25 08:42 Arrival date/time: 02/18/25 07:19 RME / HPI RME / HPI narrative: DR. CORBETT MAIN ED EVALUATION: 64-year-old female with a history of bowel obstruction who presents to the emergency department with left-sided abdominal pain for approximately 1 week that has now progressed to constipation for the last 2 days and nausea and vomiting this morning. Related Data Home Medications ?Medication ?Instructions ?Recorded ?Confirmed amlodipine 2.5 mg tablet 2.5 mg PO HS 09/10/23 01/29/25 atorvastatin 80 mg tablet 80 mg PO HS 09/10/23 01/29/25 clopidogrel 75 mg tablet 75 mg PO QDAY 09/10/23 01/29/25 isosorbide mononitrate 30 mg 30 mg PO QDAY 09/10/23 01/29/25 tablet,extended release 24 hr aspirin 81 mg tablet,delayed 81 mg PO QDAY 07/07/24 01/29/25 release Held on 02/05/25. Instructions: Resume on 02/05/25. Hold until you see your PCP or GI dicyclomine 10 mg capsule 10 mg PO QDAY 07/07/24 01/29/25 metoprolol succinate 100 mg 100 mg PO QDAY 07/07/24 01/29/25 tablet,extended release 24 hr gabapentin 300 mg capsule 300 mg PO BID 10/19/24 01/29/25 lisinopril 20 1 tab PO QDAY 10/19/24 01/29/25 mg-hydrochlorothiazide 12.5 mg tablet metformin 750 mg tablet,extended 750 mg PO QDAY 10/19/24 01/29/25 release 24 hr clonazepam 1 mg tablet 1 mg PO BID 01/29/25 01/29/25 hydroxyzine HCl 25 mg tablet 25 mg PO QAM 01/29/25 01/29/25 Previous Rx's ?Medication ?Instructions ?Recorded tramadol 50 mg tablet 50 mg PO TID PRN pain #20 tabs 10/24/24 pantoprazole 40 mg tablet,delayed 40 mg PO BID #90 tabs 02/05/25 release trazodone 50 mg tablet 50 mg PO HS #30 tabs 02/05/25 acetaminophen 300 mg-codeine 30 mg 2 tab PO Q8H PRN pain #20 tabs 02/15/25 tablet ketorolac 10 mg tablet 10 mg PO Q8H PRN pain 5 days #10 02/15/25 tabs ondansetron 4 mg disintegrating 4 mg PO TID PRN nausea and 02/15/25 tablet vomiting 30 days #10 tabs tamsulosin 0.4 mg capsule (Flomax) 0.4 mg PO QDAY 7 days #7 caps 02/15/25 ciprofloxacin HCl 500 mg tablet 500 mg PO BID #20 tabs 02/17/25 (Cipro) ondansetron 4 mg disintegrating 4 mg PO TID PRN nausea and 02/17/25 tablet vomiting 30 days #10 tabs oxycodone-acetaminophen 5 mg-325 2 tab PO Q8H PRN pain #20 tabs 02/17/25 mg tablet (Percocet) diazepam 10 mg tablet 10 mg PO BID PRN Abdominal 02/18/25 Discomfort 3 days #6 tabs Allergies Allergy/AdvReac Type Severity Reaction Status Date / Time codeine Allergy Severe HIVES Verified 02/18/25 07:34 hydrocodone Allergy Severe RASH AND Verified 02/18/25 07:34 SWELLING Iodinated Contrast Media Allergy Severe Hives Verified 02/18/25 07:34 Review of Systems Review of Systems Systems Reviewed: All systems reviewed, normal except as documented Narrative Review of Systems: GEN: No fever, no chills, no weight loss EYES: No discharge, no visual changes, no pain HEENT: No ear pain, no congestion, no sore throat PULM: No shortness of breath, no cough, no congestion CV: No chest pain, no dyspnea on exertion, no palpitations GI: + nausea, + vomiting, no diarrhea, + left-sided abdominal pain , + constipation : No frequency, no urgency and no dysuria MUSC/SKEL: No joint pain, no back pain SKIN: No rash PSYCH: No hallucinations, no depression HEME/LYMPH: No easy bleeding or bruising tendencies NEURO: No weakness, no headache Past Medical History Past Medical History NEUROLOGIC: Positive Neurological Disorders, Cerebrovascular Accident and Transient Ischemic Attacks (TIA); Negative Seizures CARDIAC: Positive Cardiac Disorders (2x SD, Stroke, HTN, DM2, HF), Myocardial Infarction, Coronary Artery Disease, Hypercholesterolemia, Congestive Heart Failure and Hypertension RESPIRATORY: Negative Chronic Obstructive Pulmonary Disease (COPD) or Asthma GASTROINTESTINAL: Positive Gastrointestinal Disorders, Colitis, Diverticulitis, Diverticulosis and Gastroesophageal Reflux Disease; Negative Gastrointestinal Bleed, Hiatal Hernia or Hemorrhoids GENITOURINARY: Negative Genitourinary Disorders or Renal Disease REPRODUCTIVE: Positive Previous Pregnancies MUSCULOSKELETAL: Positive Musculoskeletal Disorders, Arthritis and Carpal Tunnel Syndrome ENDOCRINE: Positive Endocrine Disorders, Diabetes Mellitus Type 2 and Hyperthyroidism; Negative Diabetes Mellitus Type 1 or Hypothyroidism HEMATOLOGIC: Negative Blood Disorders or Sickle Cell Disease PSYCHO/SOCIAL: Positive Anxiety; Negative Depression OTHER HISTORY: Positive Falls and Chicken Pox; Negative Blood Transfusions, Blood Transfusion Reaction, Anesthesia Reactions or Cancer Family History FAMILY HISTORY: Positive Family Cancer Surgical History SURGICAL: Positive Cardiac Surgery, Coronary Stent, Tonsillectomy, Tubal Ligation and Section Social History SMOKING STATUS: Never smoker SECOND HAND EXPOSURE: Yes SUBSTANCE USE: does not use ALCOHOL: Never ED Exam Narrative Physical exam: GENERAL APPEARANCE: AxOx4, generally well-appearing, in mild to moderate pain distress. HEENT: NC, AT. MMM. EOMI, clear conjunctiva, oropharynx clear. NECK: Supple without lymphadenopathy. No stiffness or restricted ROM. HEART: Normal rate and regular rhythm, normal S1/S1, no m/r/g LUNGS: CTAB, moving air well. No crackles or wheezes are heard. ABDOMEN: There is left upper abdomen tenderness. Nondistended with good bowel sounds heard. BACK: No midline C/T/L spine pain or deformity, No CVAT, no obvious deformity. EXTREMITIES: Without cyanosis, clubbing or edema. MUSCULOSKELETAL: FROM of all major joints, no chest tenderness NEUROLOGICAL: Grossly nonfocal. Alert and oriented, moving all 4 extremities. CN not formally tested but appear grossly intact. Observed to ambulate with normal gait. Skin: Warm and dry without any rash. Course Quality Measures none Orders Category Date Time Status CT Screening NOW Care 02/18/25 08:[address] abdomen pelvis w con Stat Exams 02/18/25 08:50 Completed CBC Stat Lab 02/18/25 08:00 Completed CMP [Comprehensive Metabolic Panel] Stat Lab 02/18/25 09:57 Completed Urinalysis Stat Lab 02/18/25 08:48 Completed Diazepam Inj [Valium Inj] Med 02/18/25 13:44 Discontinued 5 mg IVP X1 ONE DiphenhydrAMINE INJ [Benadryl Inj] Med 02/18/25 09:11 Discontinued 50 mg IV X1 ONE EPINEPHrine Inj [Adrenalin Inj] Med 02/18/25 12:34 Discontinued 0.5 mg SC X1 ONE HYDROmorphone INJ [Dilaudid Inj] Med 02/18/25 13:44 Discontinued 0.5 mg IVP X1 ONE HYDROmorphone INJ [Dilaudid Inj] Med 02/18/25 08:47 Discontinued 1 mg IVP X1 ONE HYDROmorphone INJ [Dilaudid Inj] Med 02/18/25 10:14 Discontinued 1 mg IVP X1 ONE HYDROmorphone INJ [Dilaudid Inj] Med 02/18/25 11:11 Discontinued 1 mg IVP X1 ONE MethylPREDNISolone.* [SoluMEDROL Inj] Med 02/18/25 11:42 Discontinued 125 mg IVP X1 ONE Ondansetron Inj [Zofran Inj] Med 02/18/25 08:50 Discontinued 4 mg IV X1 ONE Sodium Chloride 0.9% 1000 ml [Ns] 1,000 ml Med 02/18/25 08:42 Discontinued IV 999 mls/hr Reevaluation(s) Reevaluation #1: Patient reports having the same pain since she was discharged from hospital last time. She was given dilaudid while she was in the hospital. She states that they were going to do oral medications but left AMA. She was started on oxycodone 2 weeks ago. Time: 15:25 Vital Signs Vital signs: Vital Signs Temperature 97.5 F 02/18/25 07:21 Pulse Rate 74 02/18/25 07:21 Respiratory Rate 18 02/18/25 07:21 Blood Pressure 136/70 H 02/18/25 07:21 Pulse Oximetry (%) 95 02/18/25 07:21 Oxygen Delivery Method Room Air 02/18/25 07:21 [facility] Patient data External records reviewed:: [facility] previous records (Reviewed last ED visit dated 02/17/25, discharged with the following: Colitis) Clinical information provided by:: patient Social determinants that could affect healthcare access:: none Patient has the following chronic illnesses:: bowel obstruction How is presenting disease/condition affected by chronic disease/condition?: exacerbated by Evaluation data The following diagnostics were reviewed and interpreted by me:: lab results and radiology exam(s) Lab and/or radiology exams considered but not ordered:: none Interpretation Summary: No SBO, hemoglobin is normal. RADIOLOGY Procedure(s): CT abdomen pelvis w con Accession Number(s): [id number] cc: Nadeen Sewell; Anderson Corbett MD; Andrew Mathews MD~ Examination: CT abdomen with intravenous contrast CT pelvis with intravenous contrast 2-D coronal reconstructions 2-D sagittal reconstructions Date and time of exam:February 18, 2025 1228 hours Comparison February 16, 2025 INDICATIONS: Constipation vomiting nausea beginning 3 days ago. CTDI: vol (mGy) 6.98 DLP: (mGycm) 384 Technique: Multiple axial sections of the abdomen and pelvis have been obtained. 64 slice high-resolution scanner used. 3 mm axial sections have been obtained, post intravenous injection 60 cc [id number] 2-D sagittal, coronal reconstructions obtained. Low dose protocols were performed. One or more of the following dose reduction techniques were used; automated exposure control, adjustment of the mA and/or KV according to patient size, use of iterative reconstruction technique. Findings: No focal liver or splenic lesions Absent gallbladder Common bile duct 9 mm No pancreatic mass no peripancreatic edema no dilated pancreatic duct Again noted focal narrowing with soft tissue thickening involving the splenic flexure of the colon with inflammatory change, axial image 66 No bowel obstruction Heavy abdominal aortic calcification common iliac artery calcification No hydronephrosis, possible subcentimeter right renal calculi Abundant stool in the colon proximal to the splenic flexure narrowing Free fluid in the pelvis, mild Urinary bladder intact Transpedicular lumbar fusion L3-S1, severe osteopenia IMPRESSION: Again noted focal narrowing with inflammation splenic fracture of the colon Differential would favor malignant neoplasm of the colon, recommend colonoscopy follow-up Differential would also include focal severe nonspecific inflammation as well as ischemic change, clinical correlation advised Dictated By: Adnrew Mathews MD Medications Medications considered but not ordered:: none Medication administrations:: Medication Administration History Discontinued Medications Diazepam (Diazepam Inj 5 Mg/Ml Vial 2 Ml) 5 mg IVP X1 ONE Stop: 02/18/25 13:45 Last Admin: 02/18/25 15:04 Dose: 5 mg Documented By: ANTHONY Diphenhydramine HCl (Diphenhydramine Inj 50 Mg/Ml Vial) 50 mg IV X1 ONE Stop: 02/18/25 09:12 Last Admin: 02/18/25 12:52 Dose: 50 mg Documented By: ANTHONY Epinephrine HCl (Epinephrine Inj 1 Mg/Ml Amp) 0.5 mg SC X1 ONE Stop: 02/18/25 12:35 Last Admin: 02/18/25 14:52 Dose: Not Given Documented By: [facility] Non-Admin Reason: Cancelled by Provider Hydromorphone HCl (Hydromorphone Inj 2 Mg/Ml Vial) 1 mg IVP X1 ONE Stop: 02/18/25 08:48 Last Admin: 02/18/25 09:10 Dose: 1 mg Documented By: ANTHONY Hydromorphone HCl (Hydromorphone Inj 2 Mg/Ml Vial) 1 mg IVP X1 ONE Stop: 02/18/25 10:15 Last Admin: 02/18/25 10:24 Dose: 1 mg Documented By: ANTHONY Hydromorphone HCl (Hydromorphone Inj 2 Mg/Ml Vial) 1 mg IVP X1 ONE Stop: 02/18/25 11:12 Last Admin: 02/18/25 11:22 Dose: 1 mg Documented By: ANTHONY Hydromorphone HCl (Hydromorphone Inj 2 Mg/Ml Vial) 0.5 mg IVP X1 ONE Stop: 02/18/25 13:45 Last Admin: 02/18/25 15:11 Dose: 0.5 mg Documented By: ANTHONY Sodium Chloride (Ns) 1,000 mls @ 999 mls/hr IV .Q1H1M ONE Stop: 02/18/25 09:42 Last Infusion: 02/18/25 10:00 Dose: Infused Documented By: Admin: 02/18/25 09:05 Dose: 999 mls/hr Documented By: ANTHONY Methylprednisolone Sodium Succinate (Methylprednisolone Sod Succ 62.5 Mg/Ml 2ml Vial) 125 mg IVP X1 ONE Stop: 02/18/25 11:43 Last Admin: 02/18/25 11:51 Dose: 125 mg Documented By: ANTHONY Ondansetron HCl (Ondansetron Inj 2 Mg/Ml Inj 2 Ml) 4 mg IV X1 ONE; Protocol Stop: 02/18/25 08:51 Last Admin: 02/18/25 09:07 Dose: 4 mg Documented By: ANTHONY see above Consultations Consultation(s) initiated? (list below): No Diagnosis Differential Diagnosis ED Complaint MDM: bowel obstruction, viral illness, gastritis Most likely diagnosis given after review of the tests above:: Chronic abdominal pain Admission Indicated Admission indicated?: not indicated Explain why admission is indicated or not indicated:: Patient has no emergent abnormalities on his studies and can be managed on an outpatient basis. Admission Request Was there a request for admission?: No Disposition Plan Disposition Plan: Discharge Discharge Attestation Discharge Attestation: The patient and all family members were given an opportunity to ask questions and understood the discharge instructions. Discharge instructions specifically effects, indications for sooner follow up or return to the emergency department, and the expected course of current diagnosis. Patient condition: Stable Medical Decision Making MDM Narrative MDM Narrative: Ashley Sahni am scribing for and in the presence of Dr. Corbett. Differential Diagnosis Differential Diagnosis: bowel obstruction, viral illness, gastritis Lab Data 02/18/25 08:00 02/18/25 09:57 Labs: Lab Results 02/18/25 02/18/25 02/18/25 Range/Units 08:00 08:48 09:57 WBC 9.9 (3.6-11.0) Thou/mm3 RBC 4.36 (4.00-5.20) Miln/mm3 Hgb 12.5 D (12.0-16.0) g/dL Hct 37.1 (36.0-46.0) % MCV 85 (80-100) fL MCH 28.7 (25.0-35.0) pg MCHC 33.7 (31.0-37.0) g/dl RDW Std Deviation 44.8 (36.4-46.3) fL Plt Count 323 (140-440) Thou/mm3 Neut % (Auto) 77 (37-80) % Lymph % (Auto) 16 (10-50) % [place] % (Auto) 7 (0-12) % Eos % (Auto) 0 (0-10) % Baso % (Auto) 0 (0-2.5) % Neut # (Auto) 7.6 (1.8-7.7) Thou/mm3 Lymph # (Auto) 1.6 (1.0-4.8) Thou/mm3 [place] # (Auto) 0.7 (0.0-0.8) Thou/mm3 Eos # (Auto) 0.0 (0.0-0.5) Thou/mm3 Baso # (Auto) 0.0 (0.0-0.2) Thou/mm3 Immature Gran # (Auto) 0.02 H (0.00-0.00) Thou/mm3 Absolute Nucleated RBC 0.00 (0.00-0.00) Thou/mm3 Immature Gran % 0 (0-0) % Nucleated RBC % 0 (0) /100 WBC Sodium 141 (136-145) mMol/L Potassium 3.3 L (3.4-5.1) mMol/L Chloride 106 (98-107) mMol/L Carbon Dioxide 27.4 (20.0-31.0) mMol/L Anion Gap 8 (7-16) BUN 9 (9-23) mg/dL Creatinine 0.5 L (0.6-1.3) mg/dL Estim Creat Clear Calc 98.9 (>60) mL/min eGFR > 60 (60 - ) See Note BUN/Creatinine Ratio 18 (12-20) Ratio Glucose 135 H (74-106) mg/dL Calculated Osmolality 281 (275-295) Calcium 9.2 (8.3-10.6) mg/dL Corrected Calcium 9.4 (8.5-10.1) mg/dL Total Bilirubin 0.4 (0.3-1.2) mg/dL AST 12 (0-34) U/L ALT 12 (10-49) U/L Alkaline Phosphatase 75 (46-116) U/L Total Protein 6.6 (5.7-8.2) gm/dL Albumin 3.8 (3.4-4.8) gm/dL Globulin 2.8 (2.3-3.5) gm/dL Albumin/Globulin Ratio 1.4 (1.2-2.2) Ur Collection Type Clean Catch Urine Color Lt-Yellow (Lt Yel-Yel) Urine Clarity Clear (Clear/Hazy) Urine pH 7.5 H (5.0-7.0) Ur Specific [place] 1.014 (1.001-1.035) Urine Protein Trace (Neg - Trace) Urine Glucose (UA) 1+ A (Negative) Urine Ketones Negative (Negative) Urine Blood Negative (Negative) Urine Nitrite Negative (Negative) Urine Bilirubin Negative (Negative) Urine Urobilinogen (Auto) Negative (0.0-1.0) mg/dL Ur Leukocyte Esterase Negative (Negative) Urine RBC 1 (0-3) /hpf Urine WBC < 1 (0-5) /hpf Ur Squamous Epith Cells < 1 (0-5) /hpf Urine Bacteria None (None) Discharge Plan Plan Patient Disposition: HOME (Self Care) Prescriptions/Referrals Prescriptions/Med Rec: New diazepam 10 mg tablet 10 mg PO BID PRN (Reason: Abdominal Discomfort) 3 Days Qty: 6 0RF No Action lisinopril-hydrochlorothiazide 20-12.5 mg Tablet 1 tab PO QDAY gabapentin 300 mg Capsule 300 mg PO BID metformin 750 mg tablet extended release 24 hr 750 mg PO QDAY Patient Comments: TAKE 1 TABLET BY MOUTH DAILY IN THE MORNING atorvastatin 80 mg tablet 80 mg PO HS Patient Comments: TAKE 1 TABLET BY MOUTH EVERY DAY isosorbide mononitrate 30 mg tablet extended release 24 hr 30 mg PO QDAY amlodipine 2.5 mg tablet 2.5 mg PO HS Patient Comments: TAKE 1 TABLET BY MOUTH EVERY DAY clopidogrel 75 mg tablet 75 mg PO QDAY Patient Comments: TAKE 1 TABLET BY MOUTH EVERY DAY FOR HEART AND BRAIN CIRCULATION metoprolol succinate 100 mg tablet extended release 24 hr 100 mg PO QDAY aspirin 81 mg Tablet,Delayed Release (Dr/Ec) 81 mg PO QDAY dicyclomine 10 mg capsule 10 mg PO QDAY Patient Comments: TAKE 1 CAPSULE BY MOUTH TWICE A DAY tramadol 50 mg tablet 50 mg PO TID PRN (Reason: pain) Qty: 20 0RF hydroxyzine HCl 25 mg tablet 25 mg PO QAM clonazepam 1 mg tablet 1 mg PO BID Patient Comments: TAKE 1 TABLET BY MOUTH TWICE A DAY NEEDED FOR ANXIETY trazodone 50 mg Tablet 50 mg PO HS Qty: 30 0RF pantoprazole 40 mg Tablet,Delayed Release (Dr/Ec) 40 mg PO BID Qty: 90 0RF acetaminophen-codeine 300-30 mg tablet 2 tab PO Q8H MDD 6 PRN (Reason: pain) Qty: 20 0RF ketorolac 10 mg tablet 10 mg PO Q8H PRN (Reason: pain) 5 Days Qty: 10 0RF ondansetron 4 mg tablet,disintegrating 4 mg PO TID PRN (Reason: nausea and vomiting) 30 Days Qty: 10 0RF tamsulosin [Flomax] 0.4 mg capsule 0.4 mg PO QDAY 7 Days Qty: 7 0RF ciprofloxacin HCl [Cipro] 500 mg tablet 500 mg PO BID Qty: 20 0RF oxycodone-acetaminophen [Percocet] 5-325 mg tablet 2 tab PO Q8H MDD 6 PRN (Reason: pain) Qty: 20 0RF ondansetron 4 mg tablet,disintegrating 4 mg PO TID PRN (Reason: nausea and vomiting) 30 Days Qty: 10 0RF Referrals: Nadeen Sewell FNP [Primary Care Provider] - In 1 week Problem List Clinical Impression: Chronic abdominal pain Patient/Caregiver Discharge Instructions Education Materials: ED Chronic Pain Additional Instructions: You can continue with her normal home oxycodone. Follow-up with your GI doctor, Dr. Juárez, you can contact his office tomorrow. Feel free return to the emergency department sooner symptoms worsen or if he notes any new, concerning issues. Print Language: Greenlandic Stand Alone Forms: [facility] Award Info., Patient Portal Info Letter
[2025-02-18 09:03] LABS: Collection Type, Urine Clean Catch
[2025-02-18] MEDS: SODIUM CHLORIDE 0.9% 1000 ML 1,000 ML 999 ML IV (09:05)
[2025-02-18] MEDS: ONDANSETRON INJ 2 MG/ML INJ 2 ML 4 MG IV (09:07)
[2025-02-18 09:10] LABS: Bilirubin,Urine Negative (Negative); Blood,Urine Negative (Negative); Clarity,Urine Clear (Clear/Hazy); Color,Urine Lt-Yellow (Lt Yel-Yel); Glucose, Urine 1+ (Negative); Ketones,Urine Negative (Negative); Leukocyte Esterase,Urine Negative (Negative); Nitrite,Urine Negative (Negative); PH,Urine 7.5 (5.0-7.0); Protein,Urine Trace (Neg - Trace); RBC,Urine 1 /hpf (0-3); Specific Gravity,Urine 1.014 (1.001-1.035); Squamous Epithelial Cell,Urine < 1 /hpf (0-5); Urobilinogen,Urine Negative mg/dL (0.0-1.0); WBC,Urine < 1 /hpf (0-5)
[2025-02-18] MEDS: HYDROmorphone INJ 2 MG/ML VIAL 1 MG IVP ×3 (09:10→11:22)
[2025-02-18 09:46] LABS: Basophils % (Auto) 0 % (0-2.5); Eosinophils % (Auto) 0 % (0-10); Hematocrit 37.1 % (36.0-46.0); Hemoglobin 12.5 g/dL (12.0-16.0); Immature Granulocytes % (Auto) 0 % (0-0); Immature Granulocytes Auto 0.02 Thou/mm3 (0.00-0.00); Lymphocytes # (Auto) 1.6 Thou/mm3 (1.0-4.8); Lymphocytes % (Auto) 16 % (10-50); Mean Corpuscular HGB Conc 33.7 g/dl (31.0-37.0); Mean Corpuscular Hemoglobin 28.7 pg (25.0-35.0); Mean Corpuscular Volume 85 fL (80-100); Monocytes # (Auto) 0.7 Thou/mm3 (0.0-0.8); Monocytes % (Auto) 7 % (0-12); Neutrophils # (Auto) 7.6 Thou/mm3 (1.8-7.7); Neutrophils % (Auto) 77 % (37-80); Nucleated Red Blood Cell % 0 /100 WBC (0); Platelet Count 323 Thou/mm3 (140-440); RDW Standard Deviation 44.8 fL (36.4-46.3); Red Blood Count 4.36 Miln/mm3 (4.00-5.20); White Blood Count 9.9 Thou/mm3 (3.6-11.0)
[2025-02-18 10:37] LABS: Alanine Aminotransferase 12 U/L (10-49); Albumin, Serum 3.8 gm/dL (3.4-4.8); Albumin/Globulin Ratio 1.4 (1.2-2.2); Alkaline Phosphatase 75 U/L (46-116); Anion Gap 8 (7-16); Aspartate Amino Transferase 12 U/L (0-34); BUN/Creatinine Ratio 18 Ratio (12-20); Bilirubin,Total 0.4 mg/dL (0.3-1.2); Blood Urea Nitrogen 9 mg/dL (9-23); Calcium 9.2 mg/dL (8.3-10.6); Calcium (Corrected) 9.4 mg/dL (8.5-10.1); Carbon Dioxide 27.4 mMol/L (20.0-31.0); Chloride 106 mMol/L (98-107); Creatinine (Component) 0.5 mg/dL (0.6-1.3); Estimated Creatinine Clearance 98.9 mL/min (>60); Globulin 2.8 gm/dL (2.3-3.5); Glucose 135 mg/dL (74-106); Osmolality,Calculated 281 (275-295); Potassium 3.3 mMol/L (3.4-5.1); Sodium 141 mMol/L (136-145); Total Protein 6.6 gm/dL (5.7-8.2); eGFR > 60 See Note
[2025-02-18] MEDS: MethylPREDNISolone SOD SUCC 62.5 MG/ML 2ML VIAL 125 MG IVP (11:51)
[2025-02-18] MEDS: DiphenhydrAMINE INJ 50 MG/ML VIAL IV (12:52)
--- NOTE | 2025-02-18 14:53 | PC.CC ---
Patient is a 64 year-old female who presents to the hospital for ABD Pain. Fifi VILLALBA made [id number] contact with patient. ASW introduced self, role, and reason for visit. Patient appeared alert and oriented to self, location, and situation. Patient was pleasant and engaged in initial assessment. Patient confirmed information on demographics and reports to living at home with her . Patient reports should she be unable to make her own medical decisions her medical decision maker would be her , Ceasar Albarran. At home patient occasionally uses a walker and requires assistance in completing her ADLs. Patient does not use oxygen at home. Patient receives primary care at [facility] in [place] and uses [facility] for prescription medications. Patient reports she does not have a [facility] Directive/POA. Patient requested [employer] Directive form from ASW. ASW provided patient with the form. Upon discharge patient plans to return home. financial services representative to follow up with any discharge needs.
[2025-02-18] MEDS: DIAZEPAM INJ 5 MG/ML VIAL 2 ML IVP (15:04)
[2025-02-18] MEDS: HYDROmorphone INJ 2 MG/ML VIAL 0.5 MG IVP (15:11)
--- NOTE | 2025-02-18 15:58 | PC.NURSE ---
given food & fluids with any difficulty
== END 2025-02-18 16:03 | disposition home or self-care (01) ==
PROVIDERS: Emergency Provider Emergency Medicine; PCP Nurse Practitioner Family
DX: D73.89 Other diseases of spleen (principal)
CPT/HCPCS: 36415; 74177; 80053; 81001; 85025; 96361; 96374; 96375; 96376; 99285; A4649; J1200; J2405; J2919; J3360; J3490; J7030; Q9967

== ENCOUNTER 2025-03-30 07:48 | Emergency (ER) | payer MEDICARE, BC, SELFPAY ==
[2025-03-30] VITALS (10 sets, daily range): BP systolic 116–197; BP diastolic 67–103; PULSE 86–102; RESP 12–22; TEMP 36.6–37.6; O2SAT 95–99; BMI 25.3
[2025-03-30] MEDS: MORPHINE SULF INJ 10 MG/ML VIAL 4 MG IVP ×4 (08:36→20:21)
[2025-03-30] MEDS: ONDANSETRON INJ 2 MG/ML INJ 2 ML 4 MG IV (08:36)
--- NOTE | 2025-03-30 09:03 | EKG_ITS ---
[facility] Test Date: 2025-03-30 Pat Name: KD PORRAS Department: Room: - Gender: Female [place]: : 1960 Requested By: Pepito Lin Order Number: [id number] Reading MD: Pepito Lin Measurements Intervals [place] Rate: 101 P: 74 LA: 143 QRS: 51 QRSD: 78 T: 68 QT: 340 QTc: 443 Interpretive Statements SINUS TACHYCARDIA POSSIBLE LEFT ATRIAL ENLARGEMENT [-0.1mV P-WAVE IN V1/V2] MODERATE ST DEPRESSION [0.05+ mV ST DEPRESSION] Compared to ECG 02/16/2025 21:28:35 ST (T wave) deviation now present Sinus rhythm no longer present Ventricular premature complex(es) no longer present T-wave abnormality no longer present Possible ischemia no longer present /store/[id number]
--- NOTE | 2025-03-30 09:03 | PD.EDWOUND ---
ED Wound/Laceration-RME/HPI General Chief Complaint: Wound/Laceration Stated Complaint: ULCER PAIN Arrival date/time: 03/30/25 07:48 Limitations: no limitations RME / HPI RME / HPI narrative: DR. LIN MAIN ED EVALUATION: 64 year old female with past medical history significant for recent bowel obstruction surgery and buttocks ulcer presents to the Emergency Department [facility] from [facility] with complaints of buttocks ulcer wound pain and abdominal wound pain from recent surgery. Per , they discharged the patient from [facility], where they did the bowel surgery, yesterday and was placed at [facility]; however, per , the patient was still in pain and was not discharged with pain medications. Patient has associated nausea, vomiting, shaking and chills. Other PMHx includes CAD (s/p multiple stents), PAD (s/p b/l femoral artery/aorta/ICA stenting), atrial fibrillation, hypertension, type 2 diabetes, and esophageal strictures s/p dilatation x2. Medications include but not limited to ASA, plavix, and oxycodone. Code Status: Full Code. Related Data Home Medications ?Medication ?Instructions ?Recorded ?Confirmed amlodipine 2.5 mg tablet 2.5 mg PO HS 09/10/23 01/29/25 atorvastatin 80 mg tablet 80 mg PO HS 09/10/23 01/29/25 clopidogrel 75 mg tablet 75 mg PO QDAY 09/10/23 01/29/25 isosorbide mononitrate 30 mg 30 mg PO QDAY 09/10/23 01/29/25 tablet,extended release 24 hr aspirin 81 mg tablet,delayed 81 mg PO QDAY 07/07/24 01/29/25 release Held on 02/05/25. Instructions: Resume on 02/05/25. Hold until you see your PCP or GI dicyclomine 10 mg capsule 10 mg PO QDAY 07/07/24 01/29/25 metoprolol succinate 100 mg 100 mg PO QDAY 07/07/24 01/29/25 tablet,extended release 24 hr gabapentin 300 mg capsule 300 mg PO BID 10/19/24 01/29/25 lisinopril 20 1 tab PO QDAY 10/19/24 01/29/25 mg-hydrochlorothiazide 12.5 mg tablet metformin 750 mg tablet,extended 750 mg PO QDAY 10/19/24 01/29/25 release 24 hr clonazepam 1 mg tablet 1 mg PO BID 01/29/25 01/29/25 hydroxyzine HCl 25 mg tablet 25 mg PO QAM 01/29/25 01/29/25 Previous Rx's ?Medication ?Instructions ?Recorded tramadol 50 mg tablet 50 mg PO TID PRN pain #20 tabs 10/24/24 pantoprazole 40 mg tablet,delayed 40 mg PO BID #90 tabs 02/05/25 release trazodone 50 mg tablet 50 mg PO HS #30 tabs 02/05/25 acetaminophen 300 mg-codeine 30 mg 2 tab PO Q8H PRN pain #20 tabs 02/15/25 tablet ciprofloxacin HCl 500 mg tablet 500 mg PO BID #20 tabs 02/17/25 (Cipro) oxycodone-acetaminophen 5 mg-325 2 tab PO Q8H PRN pain #20 tabs 02/17/25 mg tablet (Percocet) ondansetron 4 mg disintegrating 4 mg PO Q8H PRN nausea and 02/18/25 tablet vomiting #10 tabs tramadol 25 mg tablet 25 mg PO Q6H PRN pain #1 tab 03/30/25 Allergies Allergy/AdvReac Type Severity Reaction Status Date / Time codeine Allergy Severe HIVES Verified 02/18/25 07:34 hydrocodone Allergy Severe RASH AND Verified 02/18/25 07:34 SWELLING Iodinated Contrast Media Allergy Severe Hives Verified 02/18/25 07:34 Review of Systems Review of Systems Systems Reviewed: All systems reviewed, normal except as documented Narrative Review of Systems: GEN: No fever, + shaking/ chills, no weight loss EYES: No discharge, no visual changes, no pain HEENT: No ear pain, no congestion, no sore throat PULM: No shortness of breath, no cough, no congestion CV: No chest pain, no dyspnea on exertion, no palpitations GI: + nausea, + vomiting, no diarrhea, no pain, no constipation : No frequency, no urgency and no dysuria MUSC/SKEL: No joint pain, no back pain SKIN: No rash. + buttocks ulcer wound pain, + abdominal wound pain PSYCH: No hallucinations, no depression HEME/LYMPH: No easy bleeding or bruising tendencies NEURO: No weakness, no headache Past Medical History Past Medical History NEUROLOGIC: Positive Neurological Disorders, Cerebrovascular Accident and Transient Ischemic Attacks (TIA) CARDIAC: Positive Cardiac Disorders, Myocardial Infarction, Coronary Artery Disease, Hypercholesterolemia, Congestive Heart Failure and Hypertension GASTROINTESTINAL: Positive Gastrointestinal Disorders, Colitis, Diverticulitis, Diverticulosis and Gastroesophageal Reflux Disease REPRODUCTIVE: Positive Previous Pregnancies MUSCULOSKELETAL: Positive Musculoskeletal Disorders, Arthritis and Carpal Tunnel Syndrome ENDOCRINE: Positive Endocrine Disorders, Diabetes Mellitus Type 2 and Hyperthyroidism PSYCHO/SOCIAL: Positive Anxiety OTHER HISTORY: Positive Falls and Chicken Pox Family History FAMILY HISTORY: Positive Family Cancer Surgical History SURGICAL: Positive Cardiac Surgery, Coronary Stent, Tonsillectomy, Tubal Ligation and Section Social History SMOKING STATUS: Never smoker SECOND HAND EXPOSURE: Yes SUBSTANCE USE: does not use ALCOHOL: Never ED Exam General Limitations: Present no limitations General appearance: Present alert and in no apparent distress Head Head exam: Present atraumatic, normocephalic and normal inspection Eye Eye exam: Present normal appearance, PERRL and EOMI ENT ENT exam: Present normal exam, normal oropharynx and mucous membranes moist Neck Neck exam: Present normal inspection, full ROM and trachea midline Chest Chest inspection: Present normal inspection and symmetric chest wall rise Respiratory Respiratory exam: Present normal lung sounds bilaterally Cardiovascular Cardiovascular exam: Present regular rate, normal rhythm and normal heart sounds Abdominal Exam Abdominal exam: Present soft and normal bowel sounds Extremities Exam Extremities exam: Present normal inspection and full ROM Back Exam Back exam: Present normal inspection and full ROM Neurological Exam Neurological exam: Present alert, oriented X3 and CN II-XII intact Psychiatric Psychiatric exam: Present normal affect and normal mood Skin Skin exam: Present warm, dry and normal color Expanded Skin Exam Body image:  1. Large sacral wound, no puss or drainage. 2. Abdominal wound, from recent SBO surgery, with erythema and puss noted. Course Quality Measures none Orders Category Date Time Status CT Screening NOW Care 03/30/25 09:16 Active Documentation Analyst STAT Care 03/30/25 09:03 Active Continuous Pulse Oximetry STAT Care 03/30/25 09:03 Completed Dress wound [Wound Care] NOW Care 03/30/25 09:19 Active EKG (ED ONLY) *Do not use* NOW Care 03/30/25 09:03 Completed Insert IV NOW Care 03/30/25 09:03 Completed Urinary Catheter QS Care 03/30/25 09:03 Active Referral - University Manager Stat Cons 03/30/25 16:[address] chest abdomen pelvis w Stat Exams 03/30/25 09:15 Completed EKG (ED Only) Stat Exams 03/30/25 09:03 Draft XR chest 1V portable Stat Exams 03/30/25 09:03 Completed B-Type Natriuretic Peptide Stat Lab 03/30/25 10:10 Completed Blood Culture (Lab) Stat Lab 03/30/25 10:10 Received CBC Stat Lab 03/30/25 10:10 Completed Comprehensive Metabolic Panel Stat Lab 03/30/25 10:10 Completed LDH (Lactate Dehydrogenase) Stat Lab 03/30/25 10:10 Completed Lactate (Lactic Acid) Stat Lab 03/30/25 10:10 Completed Lipase Stat Lab 03/30/25 10:10 Completed Magnesium Stat Lab 03/30/25 10:10 Completed Partial Thromboplastin Time Stat Lab 03/30/25 10:10 Completed Phosphorous Stat Lab 03/30/25 10:10 Completed Procalcitonin Stat Lab 03/30/25 10:10 Completed Prothrombin Time with INR Stat Lab 03/30/25 10:10 Completed Troponin I Stat Lab 03/30/25 10:10 Completed Urinalysis Stat Lab 03/30/25 14:50 Completed Urine Culture Stat Lab 03/30/25 14:50 Received Wound Culture and Gram Stain Stat Lab 03/30/25 09:19 Ordered Acetaminophen Naomi [Tylenol Naomi] Med 03/30/25 09:03 Active 1,000 mg PO Q8H PRN DiphenhydrAMINE INJ [Benadryl Inj] Med 03/30/25 12:03 Discontinued 50 mg IV X1 ONE Morphine Inj Med 03/30/25 09:31 Active 4 mg IVP Q1H PRN Morphine Inj Med 03/30/25 08:14 Discontinued 4 mg IVP X1 ONE Ondansetron Inj [Zofran Inj] Med 03/30/25 08:31 Discontinued 4 mg IV X1 ONE Piper/Tazo 3.375 gm Premix [Zosyn] Med 03/30/25 09:03 Discontinued 3.375 gm in 50 ml IV X1 Sodium Chloride 0.9% 1000 ml [Ns] 1,503 ml Med 03/30/25 09:03 Discontinued IV 1,503 mls/hr Vancomycin Inj 1,500 mg Med 03/30/25 09:03 Discontinued Sodium Chloride 0.9% 500 ml [Ns] 500 ml IV X1 Vital Signs Vital signs: Vital Signs Temperature 98.8 F 03/30/25 07:55 Pulse Rate 102 H 03/30/25 07:55 Respiratory Rate 18 03/30/25 07:55 Blood Pressure 186/82 H 03/30/25 07:55 Pulse Oximetry (%) 95 03/30/25 07:55 Oxygen Delivery Method Room Air 03/30/25 07:55 Procedures -ED EKG Interpretation #1: Date of EK03/30/25 Time of EK:19 Rate: 101 Interpretation: Interpreted by me Additional EKG comment: sinus tachycardia, rate 101, no ischemia, normal intervals Wound / Laceration MDM Narrative MDM Narrative:: I, Ashley Cho, am scribing for and in the presence of Dr. Lin. Patient was evaluated for her abdominal pain and ischemic ulcers in the ER which was found to have Well-healing sacral ulcer Infected ulcer at the lower part of the abdominal incision Patient finished antibiotics and I see that she will need to be on a different round of antibiotics I consulted with the surgery who is going to see the patient Also spoke with the hospital medicine team and will admit the patient Patient story dates back to 2 months ago when she had bowel obstruction and she ended up with a colostomy after the removal of part of her small intestine Since then she had infection of her abdominal wall incision and also she had sacral ulcer Lastly she was in [place] for the because of infection Conversional surgery was in [place] Now she is here because she is in a intermediate and being transferred from intermediate to our hospital for further evaluation of this discharge and pain at the site of the abdominal wall incision Final assessment Infected incision associated with cellulitis and possible peritonitis Plan IV antibiotics and surgical consultation Admit to the hospital medicine team After speaking with the surgeon who came and saw the patient here in the ER he said that that patient does not have any acute surgical issue that needs to be addressed She has chronic wounds and needs wound care And for any further questions about the healing of the wound and whether it is getting better or not has to be addressed to the team that has taking care of her and president So advised to send the patient back into [facility] or consult with them and see if there is anything that they have to offer her but as far as acute surgical issue there is none to be addressed now He did not advise to start antibiotics He advised to continue doing the packing of the wounds as been we have done before Patient will need also pain medications for her pain control which she was not given Otherwise after consulting with Sreedhar if the advised to send her home and then she will need to be sent home with pain medications Assessment Chronic wounds Status post colostomy status post bowel obstruction Sacral ulcer due to pressure sores improving with time Peritoneal thickening and cellulitis of the abdominal wall of unknown previous status needs to be addressed with Sreedhar to see if this is new or old finding Plan Consult with [facility] and ask if there is a previous record of these findings on the abdominal wall Consult with them to see if they will take if they think if there is something more to do for her Otherwise patient can be discharged home there is nothing much to offer and give her pain medications Patient data External records reviewed:: EMS form Clinical information provided by:: patient, EMS and spouse Social determinants that could affect healthcare access:: housing ([facility]) Patient has the following chronic illnesses:: Recent bowel obstruction surgery at [facility] and buttocks ulcer. Other PMHx includes CAD (s/p multiple stents), PAD (s/p b/l femoral artery/aorta/ICA stenting), atrial fibrillation, hypertension, type 2 diabetes, and esophageal strictures s/p dilatation x2. Medications include but not limited to ASA, plavix, and oxycodone. Code Status: Full Code. How is presenting disease/condition affected by chronic disease/condition?: exacerbated by Evaluation data The following diagnostics were reviewed and interpreted by me:: lab results, radiology exam(s) and EKG tracing(s) Lab and/or radiology exams considered but not ordered:: none Interpretation Summary: Procedure(s): XR chest 1V portable Accession Number(s): [id number] cc: Pepito Lin MD; Sun Webb NP; Andrew Mathews MD~ Examination: AP chest single view Technique one AP portable semiupright chest single view Exam date and time: March 30, 2025 1017 hours Comparison January 29, 2025 INDICATIONS: Sepsis alert today FINDINGS: Subsegmental atelectasis left base Normal heart size No pneumonia or pulmonary edema IMPRESSION: Minor subsegmental atelectasis left base Dictated By: Andrew Mathews MD Procedure(s): CT chest abdomen pelvis w Accession Number(s): [id number] cc: Pepito Lin MD; Sun Webb NP; Andrew Mathews MD~ Examination: CT chest with intravenous contrast CT abdomen with intravenous contrast CT pelvis with intravenous contrast 2-D coronal and sagittal reconstructions Time of exam: March 30, [address] abdomen pelvis February 18, 2025, CT chest February 16, 2025 INDICATIONS: Generalized abdominal pain today CTDI: vol (mGy) : 5.35 DLP: (mGycm): 407 Technique: Multiple axial images of the chest, abdomen and pelvis with intravenous contrast, 3.0 mm slice thickness. Images obtained post intravenous injection Isovue 370 60 cc. 2-D sagittal and coronal reconstructions. Low dose protocols were performed. One or more of the following dose reduction techniques were used; automated exposure control, adjustment of the mA and/or KV according to patient size, use of iterative reconstruction technique. Findings: Mildly enlarged thyroid lobes Multiple left thyroid nodules, the largest 10 mm No thoracic degenerative aneurysm dilatation No pulmonary artery filling defects on this non-CTA study Heavy calcification left main left anterior descending coronary arteries No cardiomegaly No paratracheal tracheobronchial or bronchopulmonary adenopathy Atelectasis in the lower lung zones No lobar pneumonia or pulmonary edema No focal liver lesions Mild fluid subcapsular to the spleen Absent gallbladder Common bile duct 9 mm no definite stones No pancreatic mass Heavy abdominal aortic calcification No hydronephrosis Multiple bilateral renal calculi 2 to 4 mm Thickening of the umbilical tract Right ileostomy Edema in the peritoneum in the left upper abdomen and left abdomen, for instance coronal image 16, unclear etiology No abdominal or pelvic abscess Atrophic uterus Urinary bladder contracted around a Soto catheter, urinary bladder wall thickening up to 6 mm Prominent osteopenia Transpedicular lumbar fusion with disc spacers L3-S1 with satisfactory alignment Large soft tissue defect posterior and below the coccyx IMPRESSION: Mild thyromegaly Multiple left thyroid nodules, consider dedicated thyroid sonography follow-up Heavy calcification left main left anterior descending coronary artery No mediastinal lymphadenopathy No pneumonia, pulmonary edema or pulmonary nodules Mild fluid subcapsular to the spleen, clinical correlation advised Multiple bilateral nonobstructing renal calculi Right ileostomy Edema in the peritoneum in the left upper abdomen and left lateral abdomen,, with reactive cellulitis type pattern clinical correlation advised No abdominal or pelvic abscess Thickening of urinary bladder wall up to 6 mm, consider cystitis Large soft tissue defect posterior pelvis below the coccyx, with cellulitis pattern Dictated By: Andrew Mathews MD Medications / Prescriptions Medications or Prescriptions considered but not ordered:: none Medication administrations:: Medication Administration History Acetaminophen (Acetaminophen Naomi 325 Mg/10 Ml Udc) 1,000 mg PO Q8H PRN PRN Reason: Fever > 100.4 Stop: 04/29/25 09:02 Morphine Sulfate (Morphine Sulf Inj 10 Mg/Ml Vial) 4 mg IVP Q1H PRN PRN Reason: ABDOMINAL CRAMPING Last Admin: 03/30/25 17:47 Dose: 4 mg Documented By: Admin: 03/30/25 11:15 Dose: 4 mg Documented By: JUANY Discontinued Medications Diphenhydramine HCl (Diphenhydramine Inj 50 Mg/Ml Vial) 50 mg IV X1 ONE Stop: 03/30/25 12:04 Last Admin: 03/30/25 12:48 Dose: 50 mg Documented By: JUANY Sodium Chloride (Ns) 1,503 mls @ 1,503 mls/hr 30 ml/kg infuse over 60 min (1503 ml) IV .Q1H ONE Stop: 03/30/25 10:02 Last Infusion: 03/30/25 12:53 Dose: Infused Documented By: Admin: 03/30/25 11:19 Dose: 1,503 mls/hr Documented By: BELÉN Piperacillin/Tazobactam/Dextrose (Zosyn) 3.375 gm in 50 mls @ 100 mls/hr IV X1 ONE Stop: 03/30/25 09:32 Last Infusion: 03/30/25 12:00 Dose: Infused Documented By: Admin: 03/30/25 11:18 Dose: 100 mls/hr Documented By: BELÉN Vancomycin HCl 1,500 mg/ (Sodium Chloride) 500 mls @ 120 mls/hr IV X1 ONE; Protocol Stop: 03/30/25 13:12 Last Infusion: 03/30/25 17:08 Dose: Infused Documented By: Admin: 03/30/25 12:37 Dose: 120 mls/hr Documented By: JUANY Morphine Sulfate (Morphine Sulf Inj 10 Mg/Ml Vial) 4 mg IVP X1 ONE Stop: 03/30/25 08:15 Last Admin: 03/30/25 08:36 Dose: 4 mg Documented By: JUANY Ondansetron HCl (Ondansetron Inj 2 Mg/Ml Inj 2 Ml) 4 mg IV X1 ONE; Protocol Stop: 03/30/25 08:32 Last Admin: 03/30/25 08:36 Dose: 4 mg Documented By: JUANY see above Consultations Consultation(s) initiated? (list below): Yes Consultation #1 (Physician, Specialty, Details): Discussed test HPI, PMHx, lab, radiology results and/or management with surgeon Dr. Perez. He recommends transfer to [facility] where the patient was discharged from. Time: 15:40 Diagnosis Wound Differential Diagnosis: other (sepsis, abdominal ulcer, buttock ulcer, cellulitis) Most likely diagnosis given after review of the tests above:: Peritonitis Admission Indicated Admission indicated?: not indicated Explain why admission is indicated or not indicated:: Patient needs higher level of care and will be transferred. Admission Request Was there a request for admission?: No Disposition Plan Disposition Plan: other (specify) (Patient signed out to Dr. Mercer, pending transfer.) Discharge Plan Plan Patient Disposition: Admit Acute Care w/in Hospital Patient condition on transfer: Stable Prescriptions/Referrals Prescriptions/Med Rec: New tramadol 25 mg tablet 25 mg PO Q6H PRN (Reason: pain) Qty: 1 0RF No Action lisinopril-hydrochlorothiazide 20-12.5 mg Tablet 1 tab PO QDAY gabapentin 300 mg Capsule 300 mg PO BID metformin 750 mg tablet extended release 24 hr 750 mg PO QDAY Patient Comments: TAKE 1 TABLET BY MOUTH DAILY IN THE MORNING atorvastatin 80 mg tablet 80 mg PO HS Patient Comments: TAKE 1 TABLET BY MOUTH EVERY DAY isosorbide mononitrate 30 mg tablet extended release 24 hr 30 mg PO QDAY amlodipine 2.5 mg tablet 2.5 mg PO HS Patient Comments: TAKE 1 TABLET BY MOUTH EVERY DAY clopidogrel 75 mg tablet 75 mg PO QDAY Patient Comments: TAKE 1 TABLET BY MOUTH EVERY DAY FOR HEART AND BRAIN CIRCULATION metoprolol succinate 100 mg tablet extended release 24 hr 100 mg PO QDAY aspirin 81 mg Tablet,Delayed Release (Dr/Ec) 81 mg PO QDAY dicyclomine 10 mg capsule 10 mg PO QDAY Patient Comments: TAKE 1 CAPSULE BY MOUTH TWICE A DAY tramadol 50 mg tablet 50 mg PO TID PRN (Reason: pain) Qty: 20 0RF hydroxyzine HCl 25 mg tablet 25 mg PO QAM clonazepam 1 mg tablet 1 mg PO BID Patient Comments: TAKE 1 TABLET BY MOUTH TWICE A DAY NEEDED FOR ANXIETY trazodone 50 mg Tablet 50 mg PO HS Qty: 30 0RF pantoprazole 40 mg Tablet,Delayed Release (Dr/Ec) 40 mg PO BID Qty: 90 0RF acetaminophen-codeine 300-30 mg tablet 2 tab PO Q8H MDD 6 PRN (Reason: pain) Qty: 20 0RF ciprofloxacin HCl [Cipro] 500 mg tablet 500 mg PO BID Qty: 20 0RF oxycodone-acetaminophen [Percocet] 5-325 mg tablet 2 tab PO Q8H MDD 6 PRN (Reason: pain) Qty: 20 0RF ondansetron 4 mg tablet,disintegrating 4 mg PO Q8H PRN (Reason: nausea and vomiting) Qty: 10 0RF Referrals: Sun Webb NP [Primary Care Provider] - In 1 week Problem List Clinical Impression: Peritonitis Patient/Caregiver Discharge Instructions Print Language: Japanese Stand Alone Forms: Ceci Award Info., Patient Portal Info Letter
--- NOTE | 2025-03-30 09:15 | XR_ITS ---
Examination: CT chest with intravenous contrast CT abdomen with intravenous contrast CT pelvis with intravenous contrast 2-D coronal and sagittal reconstructions Time of exam: March 30, [address] abdomen pelvis February 18, 2025, CT chest February 16, 2025 INDICATIONS: Generalized abdominal pain today CTDI: vol (mGy) : 5.35 DLP: (mGycm): 407 Technique: Multiple axial images of the chest, abdomen and pelvis with intravenous contrast, 3.0 mm slice thickness. Images obtained post intravenous injection Isovue 370 60 cc. 2-D sagittal and coronal reconstructions. Low dose protocols were performed. One or more of the following dose reduction techniques were used; automated exposure control, adjustment of the mA and/or KV according to patient size, use of iterative reconstruction technique. Findings: Mildly enlarged thyroid lobes Multiple left thyroid nodules, the largest 10 mm No thoracic degenerative aneurysm dilatation No pulmonary artery filling defects on this non-CTA study Heavy calcification left main left anterior descending coronary arteries No cardiomegaly No paratracheal tracheobronchial or bronchopulmonary adenopathy Atelectasis in the lower lung zones No lobar pneumonia or pulmonary edema No focal liver lesions Mild fluid subcapsular to the spleen Absent gallbladder Common bile duct 9 mm no definite stones No pancreatic mass Heavy abdominal aortic calcification No hydronephrosis Multiple bilateral renal calculi 2 to 4 mm Thickening of the umbilical tract Right ileostomy Edema in the peritoneum in the left upper abdomen and left abdomen, for instance coronal image 16, unclear etiology No abdominal or pelvic abscess Atrophic uterus Urinary bladder contracted around a Soto catheter, urinary bladder wall thickening up to 6 mm Prominent osteopenia Transpedicular lumbar fusion with disc spacers L3-S1 with satisfactory alignment Large soft tissue defect posterior and below the coccyx IMPRESSION: Mild thyromegaly Multiple left thyroid nodules, consider dedicated thyroid sonography follow-up Heavy calcification left main left anterior descending coronary artery No mediastinal lymphadenopathy No pneumonia, pulmonary edema or pulmonary nodules Mild fluid subcapsular to the spleen, clinical correlation advised Multiple bilateral nonobstructing renal calculi Right ileostomy Edema in the peritoneum in the left upper abdomen and left lateral abdomen,, with reactive cellulitis type pattern clinical correlation advised No abdominal or pelvic abscess Thickening of urinary bladder wall up to 6 mm, consider cystitis Large soft tissue defect posterior pelvis below the coccyx, with cellulitis pattern
[2025-03-30 10:19] LABS: Lactate (Lactic Acid) 1.8 mMol/L (0.4-2.0)
[2025-03-30 10:27] LABS: Basophils % (Auto) 0 % (0-2.5); Eosinophils % (Auto) 0 % (0-10); Hematocrit 35.2 % (36.0-46.0); Hemoglobin 12.2 g/dL (12.0-16.0); Immature Granulocytes % (Auto) 0 % (0-0); Immature Granulocytes Auto 0.03 Thou/mm3 (0.00-0.00); Lymphocytes % (Auto) 19 % (10-50); Mean Corpuscular HGB Conc 34.7 g/dl (31.0-37.0); Mean Corpuscular Hemoglobin 27.9 pg (25.0-35.0); Mean Corpuscular Volume 81 fL (80-100); Monocytes # (Auto) 0.7 Thou/mm3 (0.0-0.8); Monocytes % (Auto) 7 % (0-12); Neutrophils # (Auto) 7.6 Thou/mm3 (1.8-7.7); Neutrophils % (Auto) 73 % (37-80); Nucleated Red Blood Cell % 0 /100 WBC (0); Platelet Count 474 Thou/mm3 (140-440); RDW Standard Deviation 42.6 fL (36.4-46.3); Red Blood Count 4.37 Miln/mm3 (4.00-5.20); White Blood Count 10.4 Thou/mm3 (3.6-11.0)
[2025-03-30 10:36] LABS: Partial Thromboplastin Time 23.7 Seconds (22.0-36.0); Prothrombin Time 11.2 Seconds (9.0-12.2)
[2025-03-30 10:54] LABS: Alanine Aminotransferase 9 U/L (10-49); Albumin, Serum 3.9 gm/dL (3.4-4.8); Alkaline Phosphatase 149 U/L (46-116); Anion Gap 11 (7-16); Aspartate Amino Transferase 15 U/L (0-34); BUN/Creatinine Ratio 18 Ratio (12-20); Bilirubin,Total 0.3 mg/dL (0.3-1.2); Blood Urea Nitrogen 14 mg/dL (9-23); Calcium 9.1 mg/dL (8.3-10.6); Calcium (Corrected) 9.2 mg/dL (8.5-10.1); Carbon Dioxide 24.4 mMol/L (20.0-31.0); Chloride 99 mMol/L (98-107); Creatinine (Component) 0.8 mg/dL (0.6-1.3); Estimated Creatinine Clearance 61.1 mL/min (>60); Globulin 3.8 gm/dL (2.3-3.5); Glucose 162 mg/dL (74-106); LDH (Lactate Dehydrogenase) 171 U/L (120-246); Lipase 44 U/L (12-53); Magnesium 1.8 mg/dL (1.6-2.6); Osmolality,Calculated 272 (275-295); Phosphorous 3.4 mg/dL (2.4-5.1); Potassium 4.3 mMol/L (3.4-5.1); Sodium 134 mMol/L (136-145); Total Protein 7.7 gm/dL (5.7-8.2); Troponin I < 0.002 ng/mL (0.0-0.045); eGFR > 60 See Note
[2025-03-30 10:59] LABS: B-Type Natriuretic Peptide 36 pg/mL (0-100)
[2025-03-30] MEDS: PIPER/TAZO 3.375 GM PREMIX 3.375 GM/50 ML BAG IV (11:18)
[2025-03-30] MEDS: SODIUM CHLORIDE 0.9% 1000 ML 1,503 ML 1503 ML IV (11:19)
[2025-03-30] MEDS: Vancomycin Inj 1,500 MG in SODIUM CHLORIDE 0.9% 500 ML 500 ML 120 MG IV (12:37)
[2025-03-30] MEDS: DiphenhydrAMINE INJ 50 MG/ML VIAL IV (12:48)
[2025-03-30 14:57] LABS: Collection Type, Urine Clean Catch; RBC,Urine 0 /hpf (0-3); Squamous Epithelial Cell,Urine 0 /hpf (0-5)
[2025-03-30 15:23] LABS: Bilirubin,Urine Negative (Negative); Blood,Urine Negative (Negative); Budding Yeast,Urine Present; Glucose, Urine Negative (Negative); Hyphae Yeast Present; Ketones,Urine Negative (Negative); Leukocyte Esterase,Urine Positive (Negative); Nitrite,Urine Negative (Negative); PH,Urine 6.5 (5.0-7.0); Protein,Urine Trace (Neg - Trace); Urobilinogen,Urine Negative mg/dL (0.0-1.0); WBC,Urine 26 /hpf (0-5)
[2025-03-30 15:26] LABS: Clarity,Urine Hazy (Clear/Hazy); Color,Urine Lt-Yellow (Lt Yel-Yel); Specific Gravity,Urine 1.015 (1.001-1.035)
--- NOTE | 2025-03-30 15:51 | PC.SS ---
SS follow up: received a call from Iwona at [facility], requesting to know if the patient will be ready for d/c today or being admitted. Per bed side FARIDEH Cordova, the patient will be admitted and Iwona at [facility] was updated.
--- NOTE | 2025-03-30 17:51 | PC.CM ---
[id number] I received a referral to transfer patient to [facility] where she previously had surgery. I was busy with several other transfers. I contacted [facility] [phone] and initiated a transfer. I faxed over information and I will push over images.
--- NOTE | 2025-03-30 17:59 | PD.HHCONS ---
HPI Consultation - Hospitalist Data of Consult Primary Care Provider: Sun Webb NP Consult Narrative History of present illness: Patient is a 64-year-old female with extensive past medical history including CAD status post stenting, PAD s/p stenting, atrial fibrillation, essential hypertension, type 2 diabetes mellitus, esophageal strictures status post dilation, history of bowel ischemia complicated by SBO status [facility] [place] after which she was discharged to a long term where she developed decubitus ulcers that got infected status post debridement at [facility], who presented from her long term [place] for chief complaint of hallucinations, nausea, and vomiting. Patient was discharged on the day prior to admission and she was okay however in the few hours after discharge she started to feel unwell. She started to have episodes of nausea and vomiting. Per patient's daughter at the bedside, she started to hallucinate and her mental status was waxing and waning. Patient herself complained of pain at her decubitus ulcer wound site. She feels tired. In the ED, patient was afebrile. Blood pressure was elevated however repeat was stable. Labs showed no leukocytosis. Platelet level was slightly elevated. Sodium level was slightly low at 134. UA showed no bacteria. EKG showed sinus tachycardia. Chest x-ray showed mild atelectasis. CT scan of the abdomen and pelvis showed mild fluid in the subcapsular area to the spleen, right ileostomy, edema in the peritoneum in the left upper abdomen and left lateral abdomen with reactive cellulitis pattern without evidence of abdominal or pelvic abscess. Given that the patient was following with the surgery team at [facility], and given the purulent discharge that was noted on the ileostomy surgical site, surgery was consulted prior to admission. Dr. Lopez saw the patient and recommended transfer to where she established her surgical care for further evaluation and management. PMHx: As above Medications: Prior medication history reviewed SHx: Smoked 0.5 packs/day for 20 years, no significant alcohol use, no illicit drug use PSHx: Spinal fusion, cholecystectomy, bowel resection status post ileostomy cc:: cc: Review of Systems Review of Systems Narrative Review of Systems: 12 point of system reviewed. All negative except as mentioned in the HPI Meds Home Medications and Allergies Home Medications ?Medication ?Instructions ?Recorded ?Confirmed ?Type amlodipine 2.5 mg tablet 2.5 mg PO HS 10/16/23 03/06/25 History atorvastatin 80 mg tablet 80 mg PO HS 09/10/23 01/29/25 History clopidogrel 75 mg tablet 75 mg PO QDAY 09/10/23 01/29/25 History isosorbide mononitrate 30 mg 30 mg PO QDAY 09/10/23 01/29/25 History tablet,extended release 24 hr aspirin 81 mg tablet,delayed 81 mg PO QDAY 07/07/24 01/29/25 History release Held on 02/05/25. Instructions: Resume on 02/05/25. Hold until you see your PCP or GI dicyclomine 10 mg capsule 10 mg PO QDAY 07/07/24 01/29/25 History metoprolol succinate 100 mg 100 mg PO QDAY 07/07/24 01/29/25 History tablet,extended release 24 hr gabapentin 300 mg capsule 300 mg PO BID 10/19/24 01/29/25 History lisinopril 20 1 tab PO QDAY 10/19/24 01/29/25 History mg-hydrochlorothiazide 12.5 mg tablet metformin 750 mg tablet,extended 750 mg PO QDAY 10/19/24 01/29/25 History release 24 hr clonazepam 1 mg tablet 1 mg PO BID 01/29/25 01/29/25 History hydroxyzine HCl 25 mg tablet 25 mg PO QAM 01/29/25 01/29/25 History Allergies Allergy/AdvReac Type Severity Reaction Status Date / Time codeine Allergy Severe HIVES Verified 02/18/25 07:34 hydrocodone Allergy Severe RASH AND Verified 02/18/25 07:34 SWELLING Iodinated Contrast Media Allergy Severe Hives Verified 02/18/25 07:34 Exam Vital Signs Temp Pulse Resp BP Pulse Ox O2 Del Method 98.0 F 93 15 116/79 95 Room Air 03/30/25 15:47 03/30/25 15:47 03/30/25 15:47 03/30/25 15:47 03/30/25 15:47 03/30/25 15:47 Narrative General: Alert and oriented x3. Appears tired and debilitated Eyes: Pupils are equal and reactive to light bilaterally. HEENT: Atraumatic, normocephalic. No JVD noted. Cardiovascular: Normal S1 and S2. Normal rate and regular rhythm. No murmurs appreciated. No peripheral pitting edema noted. No JVD noted. Respiratory: No respiratory distress. Lungs are clear to auscultation bilaterally. No wheezing or crackles heard. Abdomen: Soft, tenderness to palpation in the periumbilical area. Noted surgical site with erythema. Mild purulent discharge noted upon pressing. Ileostomy bag in place. Skin: Significant decubitus ulcer noted on the lower back with dressing and gauze in place. No purulent discharge or foul smelling noted Musculoskeletal: No gross injuries. Able to move all 4 extremities. Neuro: Alert and oriented x3. Able to move all her extremities however her strength is diminished due to generalized weakness Psych: Normal affect, slightly depressed mood Results - Hospitalist Labs Diagrams: 03/30/25 10:10 03/30/25 10:10 Labs: Short CBC 03/30/25 Range/Units 10:10 WBC 10.4 (3.6-11.0) Thou/mm3 Hgb 12.2 (12.0-16.0) g/dL Hct 35.2 L (36.0-46.0) % Plt Count 474 H D (140-440) Thou/mm3 BMP 03/30/25 10:10 Sodium 134 L Potassium 4.3 Chloride 99 Carbon Dioxide 24.4 BUN 14 Creatinine 0.8 Glucose 162 H Calcium 9.1 Cardiac Enzymes 03/30/25 Range/Units 10:10 Troponin I < 0.002 (0.0-0.045) ng/mL Liver Function 03/30/25 Range/Units 10:10 Total Bilirubin 0.3 (0.3-1.2) mg/dL AST 15 (0-34) U/L ALT 9 L (10-49) U/L Alkaline Phosphatase 149 H (46-116) U/L Albumin 3.9 (3.4-4.8) gm/dL Urine 03/30/25 Range/Units 14:50 Urine Color Lt-Yellow (Lt Yel-Yel) Urine Clarity Hazy (Clear/Hazy) Urine pH 6.5 (5.0-7.0) Ur Specific [place] 1.015 (1.001-1.035) Urine Protein Trace (Neg - Trace) Urine Glucose (UA) Negative (Negative) Assessment & Plan -Hospitalist Patient Synopsis 64-year-old female with history of bowel ischemia complicated by SBO status [facility] [place], after which she was discharged to a long term where she developed decubitus ulcers that got infected status post debridement at [facility], who presented from her long term [place] for chief complaint of hallucinations, nausea, and vomiting. Hyperactive delirium Intractable nausea and vomiting Generalized weakness History of bowel resection status post ileostomy Decubitus ulcers, low back She was recently hospitalized at [facility] She underwent debridement of her decubitus ulcer by Dr. Chong her wound surgeon She was discharged to rehab however her symptoms started soon after Her symptoms can be in setting of acute delirium from prolonged hospital stay versus pain versus dehydration versus active infection No pertinent electrolyte abnormalities CT scan is showing a possible source of infection of cellulitis. No definitive intra-abdominal abscess however noted slight purulent discharge by surgery Plan: IV fluids Management of nausea/vomiting as needed Recommend broad-spectrum antibiotics with IV vancomycin/Zosyn given the recent hospitalizations and reported purulent discharge Recommend transfer to [facility] given the recent wound care, surgery service that was established Continue wound care Management of pain as needed Delirium precautions: Adequate pain management. Management of constipation. Avoid urinary retention. Protect sleep hours. Avoid benzodiazepines. Case was discussed with the ED physician who is working on the transfer. Coronary artery disease Peripheral arterial disease Status post stenting He is on aspirin and Plavix. Resume in case there is no surgical intervention. Resume atorvastatin Essential hypertension Resume home antihypertensive treatment and monitor BP Quality Measures Quality Measures none Advance care planning discussed with:: patient and child
--- NOTE | 2025-03-30 18:14 | PD.EDADDENDU ---
Emergency Room Addendum Addendum Narrative: 1800: Care assumed from Dr. Lin (previous emergency physician). Past medical, surgical, social and family history reviewed. Vitals and home medications reviewed. Results and treatment plan discussed. I will assume the care of the patient at this time and will follow the patient, pending transfer. The following addendum documentation note is intended to reflect any pending information, findings, or radiology results not included in the patient?s initial chart by the previous shift scribe. : Patient transferred by EMS.
--- NOTE | 2025-03-30 18:31 | PD.EDADULT ---
ED General RME/HPI General Chief complaint: Wound/Laceration Stated complaint: ULCER PAIN Arrival date/time: 03/30/25 07:48 Limitations: no limitations RME / HPI RME / HPI narrative: 0600: Care assumed from ED physician, Dr.Al shirley previous shift ED physician. Past medical, surgical, social and family history reviewed. Vitals at home medications Reviewed. I will assume the care of patient at this time along with Dr Mercer ED physician, pending remainder diagnostic tests and final disposition. Please refer to the emergency department record for history and examination from initial visit. Physical exam by me shows patient under no acute distress at this time. This 64-year-old female with past medical history of recent bowel obstruction surgery and buttock ulcer presented to the ED from [facility] with complaint of buttock ulcer and wound pain and abdominal pain from recent surgery. Per patient's , patient was recently discharged from [place] where they performed surgery and was placed at [facility] continues to have pain and was not discharged with pain medications. Patient also has associated nausea vomiting and shaking with chills. PMH: CAD status post multiple stents, PAD status post bilateral femoral artery/aorta/ICA stenting, A-fib, hypertension, type 2 diabetes, esophageal stricture s/p dilation x 2. SX: spinal fusion, cholecystectomy, bowel resection s/p ileostomy SH: Smoked half a pack of cigarette for 20 years. No history of alcohol use or illicit drug use. Home medications: Aspirin, Plavix, oxycodone Per surgeon, patient does not have acute surgical abdomen and does not needs to be admitted from surgical standpoint. They advised that patient will benefit from going back in [place] or consulting with them if they have anything else to offer. Antibiotics were not advised by the surgeon. Recommended to continue packing of the wound and give pain medication. We consulted [facility] and awaiting callback currently for possible transfer. If they do not accept the patient we will likely discharge the patient after prescribing pain medications and patient can follow-up with [facility] outpatient. Labs reveal stable white count and hemoglobin. Chemistry panel was showing electrolytes within normal limits. Blood glucose 162. Lactic acid 1.8. Liver enzymes unremarkable. Urinalysis was showing mild WBC with positive leukocyte esterase. CT abdomen pelvis showed mild edema in the peritoneum of the left upper abdomen and lateral abdomen with reactive cellulitis. Thickening of the urinary bladder wall. Large soft tissue defect posterior pelvis. EKG showed sinus tachycardia with QTc 443. Patient received Zosyn and vancomycin x 1. Morphine was given for pain management. Additionally, Zofran was given for vomiting control. Wound care was offered. 22: 50 [facility] did not accept to transfer the patient as there is no immediate need of any intervention at this point. They are recommended to continue wound care with daily dressing. Therefore patient will be discharged to home with pain medication and doxycycline 100 mg twice daily for total 10 days and recommended to have wound care as outpatient with daily dressing and follow-up with the PCP as outpatient. Code Status: Full Code. complaint: abdominal wound and sacral ulcer Location: abdomen and buttocks Severity: moderate Severity scale (1-10): 8 Related Data Home Medications ?Medication ?Instructions ?Recorded ?Confirmed amlodipine 2.5 mg tablet 2.5 mg PO HS 09/10/23 01/29/25 atorvastatin 80 mg tablet 80 mg PO HS 09/10/23 01/29/25 clopidogrel 75 mg tablet 75 mg PO QDAY 09/10/23 01/29/25 isosorbide mononitrate 30 mg 30 mg PO QDAY 09/10/23 01/29/25 tablet,extended release 24 hr aspirin 81 mg tablet,delayed 81 mg PO QDAY 07/07/24 01/29/25 release Held on 02/05/25. Instructions: Resume on 02/05/25. Hold until you see your PCP or GI dicyclomine 10 mg capsule 10 mg PO QDAY 07/07/24 01/29/25 metoprolol succinate 100 mg 100 mg PO QDAY 07/07/24 01/29/25 tablet,extended release 24 hr gabapentin 300 mg capsule 300 mg PO BID 10/19/24 01/29/25 lisinopril 20 1 tab PO QDAY 10/19/24 01/29/25 mg-hydrochlorothiazide 12.5 mg tablet metformin 750 mg tablet,extended 750 mg PO QDAY 10/19/24 01/29/25 release 24 hr clonazepam 1 mg tablet 1 mg PO BID 01/29/25 01/29/25 hydroxyzine HCl 25 mg tablet 25 mg PO QAM 01/29/25 01/29/25 Previous Rx's ?Medication ?Instructions ?Recorded tramadol 50 mg tablet 50 mg PO TID PRN pain #20 tabs 10/24/24 pantoprazole 40 mg tablet,delayed 40 mg PO BID #90 tabs 02/05/25 release trazodone 50 mg tablet 50 mg PO HS #30 tabs 02/05/25 acetaminophen 300 mg-codeine 30 mg 2 tab PO Q8H PRN pain #20 tabs 02/15/25 tablet ciprofloxacin HCl 500 mg tablet 500 mg PO BID #20 tabs 02/17/25 (Cipro) oxycodone-acetaminophen 5 mg-325 2 tab PO Q8H PRN pain #20 tabs 02/17/25 mg tablet (Percocet) ondansetron 4 mg disintegrating 4 mg PO Q8H PRN nausea and 02/18/25 tablet vomiting #10 tabs doxycycline monohydrate 100 mg 100 mg PO BID 10 days #20 caps 03/30/25 capsule oxycodone 5 mg capsule 5 mg PO BID PRN pain #14 caps 03/30/25 tramadol 25 mg tablet 25 mg PO Q6H PRN pain #1 tab 03/30/25 Allergies Allergy/AdvReac Type Severity Reaction Status Date / Time codeine Allergy Severe HIVES Verified 02/18/25 07:34 hydrocodone Allergy Severe RASH AND Verified 02/18/25 07:34 SWELLING Iodinated Contrast Media Allergy Severe Hives Verified 02/18/25 07:34 Review of Systems Review of Systems Systems Reviewed: All systems reviewed, normal except as documented Past Medical History Past Medical History NEUROLOGIC: Positive Neurological Disorders, Cerebrovascular Accident and Transient Ischemic Attacks (TIA) CARDIAC: Positive Cardiac Disorders, Myocardial Infarction, Coronary Artery Disease, Hypercholesterolemia, Congestive Heart Failure and Hypertension GASTROINTESTINAL: Positive Gastrointestinal Disorders, Colitis, Diverticulitis, Diverticulosis and Gastroesophageal Reflux Disease REPRODUCTIVE: Positive Previous Pregnancies MUSCULOSKELETAL: Positive Musculoskeletal Disorders, Arthritis and Carpal Tunnel Syndrome ENDOCRINE: Positive Endocrine Disorders, Diabetes Mellitus Type 2 and Hyperthyroidism PSYCHO/SOCIAL: Positive Anxiety OTHER HISTORY: Positive Falls and Chicken Pox Family History FAMILY HISTORY: Positive Family Cancer Surgical History SURGICAL: Positive Cardiac Surgery, Coronary Stent, Tonsillectomy, Tubal Ligation and Section Social History SMOKING STATUS: Never smoker SECOND HAND EXPOSURE: Yes SUBSTANCE USE: does not use ALCOHOL: Never ED Exam Narrative Physical exam: GENERAL APPEARANCE: AxOx4, generally well-appearing female in mild distress due to abdominal pain. HEENT: NC, AT. MMM. EOMI, clear conjunctiva, oropharynx clear. NECK: Supple without lymphadenopathy. No stiffness or restricted ROM. HEART: Sinus tachycardia with regular rhythm, normal S1/S2, no m/r/g LUNGS: CTAB, moving air well. No crackles or wheezes are heard. ABDOMEN: Soft, abdominal tenderness with end ileostomy with laprotomy scar bon, nondistended with good bowel sounds heard. BACK: Sacral wound decubitus ulcer stage III-IV EXTREMITIES: Without cyanosis, clubbing or edema. NEUROLOGICAL: Grossly nonfocal. Alert and oriented, moving all 4 extremities. CN not formally tested but appear grossly intact. Skin: Warm and dry without any rash. Psych: Appropriate mood and affect General Limitations: Present no limitations General appearance: Present alert and in no apparent distress Course Quality Measures none Orders Category Date Time Status CT Screening NOW Care 03/30/25 09:16 Active Potato Loader STAT Care 03/30/25 09:03 Active Continuous Pulse Oximetry STAT Care 03/30/25 09:03 Completed Dress wound [Wound Care] NOW Care 03/30/25 09:19 Active EKG (ED ONLY) *Do not use* NOW Care 03/30/25 09:03 Completed Insert IV NOW Care 03/30/25 09:03 Completed Urinary Catheter QS Care 03/30/25 09:03 Active Referral - Fertilizer Mixer Stat Cons 03/30/25 16:[address] chest abdomen pelvis w Stat Exams 03/30/25 09:15 Completed EKG (ED Only) Stat Exams 03/30/25 09:03 Draft XR chest 1V portable Stat Exams 03/30/25 09:03 Completed B-Type Natriuretic Peptide Stat Lab 03/30/25 10:10 Completed Blood Culture (Lab) Stat Lab 03/30/25 10:10 Received CBC Stat Lab 03/30/25 10:10 Completed Comprehensive Metabolic Panel Stat Lab 03/30/25 10:10 Completed LDH (Lactate Dehydrogenase) Stat Lab 03/30/25 10:10 Completed Lactate (Lactic Acid) Stat Lab 03/30/25 10:10 Completed Lipase Stat Lab 03/30/25 10:10 Completed Magnesium Stat Lab 03/30/25 10:10 Completed Partial Thromboplastin Time Stat Lab 03/30/25 10:10 Completed Phosphorous Stat Lab 03/30/25 10:10 Completed Procalcitonin Stat Lab 03/30/25 10:10 Completed Prothrombin Time with INR Stat Lab 03/30/25 10:10 Completed Troponin I Stat Lab 03/30/25 10:10 Completed Urinalysis Stat Lab 03/30/25 14:50 Completed Urine Culture Stat Lab 03/30/25 14:50 Received Wound Culture and Gram Stain Stat Lab 03/30/25 09:19 Ordered Acetaminophen Naomi [Tylenol Naomi] Med 03/30/25 09:03 Active 1,000 mg PO Q8H PRN DiphenhydrAMINE INJ [Benadryl Inj] Med 03/30/25 12:03 Discontinued 50 mg IV X1 ONE Morphine Inj Med 03/30/25 22:07 Pending 2 mg IVP X1 ONE Morphine Inj Med 03/30/25 09:31 Discontinued 4 mg IVP Q1H PRN Morphine Inj Med 03/30/25 08:14 Discontinued 4 mg IVP X1 ONE Ondansetron Inj [Zofran Inj] Med 03/30/25 08:31 Discontinued 4 mg IV X1 ONE Piper/Tazo 3.375 gm Premix [Zosyn] Med 03/30/25 09:03 Discontinued 3.375 gm in 50 ml IV X1 Sodium Chloride 0.9% 1000 ml [Ns] 1,503 ml Med 03/30/25 09:03 Discontinued IV 1,503 mls/hr Vancomycin Inj 1,500 mg Med 03/30/25 09:03 Discontinued Sodium Chloride 0.9% 500 ml [Ns] 500 ml IV X1 Vital Signs Vital signs: Vital Signs Temperature 98.8 F 03/30/25 07:55 Pulse Rate 102 H 03/30/25 07:55 Respiratory Rate 18 03/30/25 07:55 Blood Pressure 186/82 H 03/30/25 07:55 Pulse Oximetry (%) 95 03/30/25 07:55 Oxygen Delivery Method Room Air 03/30/25 07:55 Discharge Plan Plan Patient Disposition: HOME (Self Care) Patient condition on transfer: Stable Prescriptions/Referrals Prescriptions/Med Rec: New tramadol 25 mg tablet 25 mg PO Q6H PRN (Reason: pain) Qty: 1 0RF oxycodone 5 mg capsule 5 mg PO BID MDD 2 PRN (Reason: pain) Qty: 14 0RF doxycycline monohydrate 100 mg capsule 100 mg PO BID 10 Days Qty: 20 0RF No Action lisinopril-hydrochlorothiazide 20-12.5 mg Tablet 1 tab PO QDAY gabapentin 300 mg Capsule 300 mg PO BID metformin 750 mg tablet extended release 24 hr 750 mg PO QDAY Patient Comments: TAKE 1 TABLET BY MOUTH DAILY IN THE MORNING atorvastatin 80 mg tablet 80 mg PO HS Patient Comments: TAKE 1 TABLET BY MOUTH EVERY DAY isosorbide mononitrate 30 mg tablet extended release 24 hr 30 mg PO QDAY amlodipine 2.5 mg tablet 2.5 mg PO HS Patient Comments: TAKE 1 TABLET BY MOUTH EVERY DAY clopidogrel 75 mg tablet 75 mg PO QDAY Patient Comments: TAKE 1 TABLET BY MOUTH EVERY DAY FOR HEART AND BRAIN CIRCULATION metoprolol succinate 100 mg tablet extended release 24 hr 100 mg PO QDAY aspirin 81 mg Tablet,Delayed Release (Dr/Ec) 81 mg PO QDAY dicyclomine 10 mg capsule 10 mg PO QDAY Patient Comments: TAKE 1 CAPSULE BY MOUTH TWICE A DAY tramadol 50 mg tablet 50 mg PO TID PRN (Reason: pain) Qty: 20 0RF hydroxyzine HCl 25 mg tablet 25 mg PO QAM clonazepam 1 mg tablet 1 mg PO BID Patient Comments: TAKE 1 TABLET BY MOUTH TWICE A DAY NEEDED FOR ANXIETY trazodone 50 mg Tablet 50 mg PO HS Qty: 30 0RF pantoprazole 40 mg Tablet,Delayed Release (Dr/Ec) 40 mg PO BID Qty: 90 0RF acetaminophen-codeine 300-30 mg tablet 2 tab PO Q8H MDD 6 PRN (Reason: pain) Qty: 20 0RF ciprofloxacin HCl [Cipro] 500 mg tablet 500 mg PO BID Qty: 20 0RF oxycodone-acetaminophen [Percocet] 5-325 mg tablet 2 tab PO Q8H MDD 6 PRN (Reason: pain) Qty: 20 0RF ondansetron 4 mg tablet,disintegrating 4 mg PO Q8H PRN (Reason: nausea and vomiting) Qty: 10 0RF Referrals: Sun Webb NP [Primary Care Provider] - In 1 week Problem List Clinical Impression: Surgical wound infection, Encounter for wound care, Encounter for postoperative wound care Patient/Caregiver Discharge Instructions Additional Instructions: Acute peritonitis was ruled out with surgery consultation and CT findings as well as transfer center [facility] did not recommended immediate/urgent transfer for any intervention at this point Patient was advised to continue doxycycline 100 mg twice daily for total 10 days to complete antibiotic course for possible skin soft tissue infection Take oxycodone 5 mg as needed for pain maximum of 2 tablets in a day Patient needs wound care as outpatient with daily dressing and cleaning of the wound In case of emergency or further worsening signs/symptoms, call 911 or come back to the ED Print Language: Frisian Stand Alone Forms: [facility] Award Info., Patient Portal Info Letter MDM Medication Administration(s) Medication Administration History Acetaminophen (Acetaminophen Naomi 325 Mg/10 Ml Udc) 1,000 mg PO Q8H PRN PRN Reason: Fever > 100.4 Stop: 04/29/25 09:02 Morphine Sulfate (Morphine Sulf Inj 10 Mg/Ml Vial) 2 mg IVP X1 ONE Stop: 03/30/25 22:08 Discontinued Medications Diphenhydramine HCl (Diphenhydramine Inj 50 Mg/Ml Vial) 50 mg IV X1 ONE Stop: 03/30/25 12:04 Last Admin: 03/30/25 12:48 Dose: 50 mg Documented By: GM Sodium Chloride (Ns) 1,503 mls @ 1,503 mls/hr 30 ml/kg infuse over 60 min (1503 ml) IV .Q1H ONE Stop: 03/30/25 10:02 Last Infusion: 03/30/25 12:53 Dose: Infused Documented By: Admin: 03/30/25 11:19 Dose: 1,503 mls/hr Documented By: VG Piperacillin/Tazobactam/Dextrose (Zosyn) 3.375 gm in 50 mls @ 100 mls/hr IV X1 ONE Stop: 03/30/25 09:32 Last Infusion: 03/30/25 12:00 Dose: Infused Documented By: Admin: 03/30/25 11:18 Dose: 100 mls/hr Documented By: VG Vancomycin HCl 1,500 mg/ (Sodium Chloride) 500 mls @ 120 mls/hr IV X1 ONE; Protocol Stop: 03/30/25 13:12 Last Infusion: 03/30/25 17:08 Dose: Infused Documented By: Admin: 03/30/25 12:37 Dose: 120 mls/hr Documented By: GM Morphine Sulfate (Morphine Sulf Inj 10 Mg/Ml Vial) 4 mg IVP X1 ONE Stop: 03/30/25 08:15 Last Admin: 03/30/25 08:36 Dose: 4 mg Documented By: GM Morphine Sulfate (Morphine Sulf Inj 10 Mg/Ml Vial) 4 mg IVP Q1H PRN PRN Reason: ABDOMINAL CRAMPING Last Admin: 03/30/25 20:21 Dose: 4 mg Documented By: Admin: 03/30/25 17:47 Dose: 4 mg Documented By: Admin: 03/30/25 11:15 Dose: 4 mg Documented By: JUANY Ondansetron HCl (Ondansetron Inj 2 Mg/Ml Inj 2 Ml) 4 mg IV X1 ONE; Protocol Stop: 03/30/25 08:32 Last Admin: 03/30/25 08:36 Dose: 4 mg Documented By: JUANY
--- NOTE | 2025-03-30 19:05 | PC.NURSE ---
[facility] RETURNED CALL. STATES THE MD WOULD LIKE PICTURES TO BE TAKEN AND SENT TO THERE CELL PHONE #[phone]
--- NOTE | 2025-03-30 21:07 | PC.NURSE ---
complete linen change and reposition to pts position of comfort
[2025-03-30] MEDS: MORPHINE SULF INJ 10 MG/ML VIAL 2 MG IVP (23:10)
[2025-03-31 01:20] VITALS: BP 166/75; PULSE 96; RESP 19; TEMP 36.8; O2SAT 95
[2025-03-31] MEDS: MORPHINE SULF INJ 10 MG/ML VIAL IVP (01:30)
--- NOTE | 2025-03-31 01:50 | PC.NURSE ---
report called to alysha hunt from [facility] via telephone
== END 2025-03-31 01:54 | disposition skilled nursing facility (03) ==
PROVIDERS: Emergency Provider Emergency Medicine; PCP Nurse Practitioner Family
DX: T81.41XA Infection following a procedure, superficial incisional surgical site, initial encounter (principal); K65.9 Peritonitis, unspecified; L89.153 Pressure ulcer of sacral region, stage 3; J98.11 Atelectasis; E01.0 Iodine-deficiency related diffuse (endemic) goiter; I25.10 Atherosclerotic heart disease of native coronary artery without angina pectoris; N20.0 Calculus of kidney; Z93.2 Ileostomy status; N32.89 Other specified disorders of bladder; R00.0 Tachycardia, unspecified; F17.210 Nicotine dependence, cigarettes, uncomplicated; Z95.5 Presence of coronary angioplasty implant and graft; I48.91 Unspecified atrial fibrillation; E11.51 Type 2 diabetes mellitus with diabetic peripheral angiopathy without gangrene; I11.0 Hypertensive heart disease with heart failure; I50.9 Heart failure, unspecified; E78.00 Pure hypercholesterolemia, unspecified; I25.2 Old myocardial infarction
CPT/HCPCS: 51701; 36415; 71045; 71260; 74177; 80053; 81001; 83605; 83615; 83690; 83735; 83880; 84100; 84145; 84484; 85025; 85610; 85730; 87040; 87070; 87077; 87086; 87186; 87205; 93005; 96365; 96366; 96367; 96375; 96376; 99285; A4649; J1200; J2270; J2405; J2543; J3370; J7030; J7040; Q9967

== ENCOUNTER → 2025-05-04 | Outpatient (CLI) | payer MEDICARE, BC, SELFPAY | END | disposition home or self-care (01) | PROVIDERS: PCP Nurse Practitioner Family; Referring Provider Nurse Practitioner Family; Visit Provider Student in an Organized Health Care Education/Training Program | DX: T81.89XA Other complications of procedures, not elsewhere classified, initial encounter (principal); L89.153 Pressure ulcer of sacral region, stage 3; E11.69 Type 2 diabetes mellitus with other specified complication; I49.9 Cardiac arrhythmia, unspecified; M19.91 Primary osteoarthritis, unspecified site; F41.9 Anxiety disorder, unspecified | CPT/HCPCS: 99215; A9270; G0463 ==

== ENCOUNTER → 2025-05-12 | Outpatient (CLI) | payer MEDICARE, BC, SELFPAY | END | disposition home or self-care (01) | LOC: SWHD 09:41 | PROVIDERS: PCP Nurse Practitioner Family; Referring Provider Nurse Practitioner Family; Visit Provider Student in an Organized Health Care Education/Training Program | DX: T81.89XA Other complications of procedures, not elsewhere classified, initial encounter (principal); S31.109A Unspecified open wound of abdominal wall, unspecified quadrant without penetration into peritoneal cavity, initial encounter; X58.XXXA Exposure to other specified factors, initial encounter; L89.153 Pressure ulcer of sacral region, stage 3; E11.69 Type 2 diabetes mellitus with other specified complication; I49.9 Cardiac arrhythmia, unspecified; M19.91 Primary osteoarthritis, unspecified site; F41.9 Anxiety disorder, unspecified | CPT/HCPCS: 99214; A9270; G0463 ==

== ENCOUNTER 2025-05-16 10:34 | Emergency (ER) | payer MEDICARE, BC, SELFPAY ==
[2025-05-16 10:36] VITALS: BP 133/73; PULSE 92; RESP 17; TEMP 36.7; O2SAT 96; BMI 24.8
[2025-05-16 10:51] VITALS: PULSE 98; RESP 18; O2SAT 97
--- NOTE | 2025-05-16 10:52 | PD.EDADULT ---
ED General RME/HPI General Chief complaint: GI Bleed Stated complaint: hemorrhage Time Seen by Provider: 05/16/25 10:51 Arrival date/time: 05/16/25 10:34 RME / HPI RME / HPI narrative: DR. MADERA MAIN ED EVALUATION: 64 year old female presents to the Emergency Department with complaint of bleeding in the ileostomy site today. Daughter was emptying the ileostomy bag and noticed blood so patient came in for evaluation. She had the ileostomy placed after surgery for a SBO in 02/2025, otherwise no complaints until today. No shortness of breath. No other symptoms at this time. Related Data Home Medications ?Medication ?Instructions ?Recorded ?Confirmed amlodipine 2.5 mg tablet 2.5 mg PO HS 09/10/23 01/29/25 atorvastatin 80 mg tablet 80 mg PO HS 09/10/23 01/29/25 clopidogrel 75 mg tablet 75 mg PO QDAY 09/10/23 01/29/25 isosorbide mononitrate 30 mg 30 mg PO QDAY 09/10/23 01/29/25 tablet,extended release 24 hr aspirin 81 mg tablet,delayed 81 mg PO QDAY 07/07/24 01/29/25 release Held on 02/05/25. Instructions: Resume on 02/05/25. Hold until you see your PCP or GI dicyclomine 10 mg capsule 10 mg PO QDAY 07/07/24 01/29/25 metoprolol succinate 100 mg 100 mg PO QDAY 07/07/24 01/29/25 tablet,extended release 24 hr gabapentin 300 mg capsule 300 mg PO BID 10/19/24 01/29/25 lisinopril 20 1 tab PO QDAY 10/19/24 01/29/25 mg-hydrochlorothiazide 12.5 mg tablet metformin 750 mg tablet,extended 750 mg PO QDAY 10/19/24 01/29/25 release 24 hr clonazepam 1 mg tablet 1 mg PO BID 01/29/25 01/29/25 hydroxyzine HCl 25 mg tablet 25 mg PO QAM 01/29/25 01/29/25 Previous Rx's ?Medication ?Instructions ?Recorded tramadol 50 mg tablet 50 mg PO TID PRN pain #20 tabs 10/24/24 pantoprazole 40 mg tablet,delayed 40 mg PO BID #90 tabs 02/05/25 release trazodone 50 mg tablet 50 mg PO HS #30 tabs 02/05/25 acetaminophen 300 mg-codeine 30 mg 2 tab PO Q8H PRN pain #20 tabs 02/15/25 tablet ciprofloxacin HCl 500 mg tablet 500 mg PO BID #20 tabs 02/17/25 (Cipro) oxycodone-acetaminophen 5 mg-325 2 tab PO Q8H PRN pain #20 tabs 02/17/25 mg tablet (Percocet) ondansetron 4 mg disintegrating 4 mg PO Q8H PRN nausea and 02/18/25 tablet vomiting #10 tabs oxycodone 5 mg capsule 5 mg PO BID PRN pain #14 caps 03/30/25 tramadol 25 mg tablet 25 mg PO Q6H PRN pain #1 tab 03/30/25 Allergies Allergy/AdvReac Type Severity Reaction Status Date / Time codeine Allergy Severe HIVES Verified 02/18/25 07:34 hydrocodone Allergy Severe RASH AND Verified 02/18/25 07:34 SWELLING Iodinated Contrast Media Allergy Severe Hives Verified 02/18/25 07:34 Review of Systems Review of Systems Systems Reviewed: All systems reviewed, normal except as documented Past Medical History Past Medical History NEUROLOGIC: Positive Neurological Disorders, Cerebrovascular Accident and Transient Ischemic Attacks (TIA); Negative Seizures CARDIAC: Positive Cardiac Disorders, Myocardial Infarction, Coronary Artery Disease, Hypercholesterolemia, Congestive Heart Failure and Hypertension RESPIRATORY: Negative Chronic Obstructive Pulmonary Disease (COPD) or Asthma GASTROINTESTINAL: Positive Gastrointestinal Disorders, Colitis, Diverticulitis, Diverticulosis and Gastroesophageal Reflux Disease; Negative Gastrointestinal Bleed, Hiatal Hernia or Hemorrhoids GENITOURINARY: Negative Genitourinary Disorders or Renal Disease REPRODUCTIVE: Positive Previous Pregnancies MUSCULOSKELETAL: Positive Musculoskeletal Disorders, Arthritis and Carpal Tunnel Syndrome ENDOCRINE: Positive Endocrine Disorders, Diabetes Mellitus Type 2 and Hyperthyroidism; Negative Diabetes Mellitus Type 1 or Hypothyroidism HEMATOLOGIC: Negative Blood Disorders or Sickle Cell Disease PSYCHO/SOCIAL: Positive Anxiety; Negative Depression OTHER HISTORY: Positive Falls and Chicken Pox; Negative Blood Transfusions, Blood Transfusion Reaction, Anesthesia Reactions or Cancer Family History FAMILY HISTORY: Positive Family Cancer Surgical History SURGICAL: Positive Cardiac Surgery, Coronary Stent, Tonsillectomy, Tubal Ligation and Section Social History SMOKING STATUS: Never smoker SECOND HAND EXPOSURE: Yes SUBSTANCE USE: does not use ED Exam Narrative Physical exam: Physical Exam: General: The vital signs were reviewed. The patient is non-toxic, in no apparent distress and appears healthy with a patent airway, no respiratory distress and has no apparent circulatory problems. Head & Scalp: Normocephalic, atraumatic. Face: Appears normal and is without lesions, deformity. Ears: Left external pinna appears normal. Right external pinna appears normal. Eyes: The sclera is anicteric. No obvious photophobia. The Left and Right Orbit/Lid/Conjunctiva appears normal without swelling, discoloration or injection. Nose: The nose is without deformity, discharge or tenderness; Throat: Appears normal. The mucous membranes are pink and moist without exudates, redness or mass seen. The tongue appears normal. Neck: The neck is supple and no apparent mass or adenopathy. Chest: The chest wall is normal in size and symmetry and has no chest wall tenderness or crepitus. The patient displays normal ventilator effort without retractions, accessory muscle use and has adequate air movement bilaterally with no wheezes and no rales. Cardiovascular: Regular rate and rhythm; No murmurs, rubs, or gallops; Gastrointestinal: The abdomen appears normal. There is an ileostomy bag in place with green bile appearing fluid no is no gross blood seen visualization of the small bowel reveals no obvious breakdown or friability. Abdomen the skin around the ileostomy is clean with no issues. No obvious hernias or mass. The abdomen is soft and benign, non-distended, with no pain, no guarding and no rebound tenderness. Bowel sounds are present and normal sounding. No CVA tenderness. Genitourinary: In the sacral area patient has a dressing on a healing decubitus but the area looks very clean. Back/Spine: Normal inspection of the back otherwise. Extremities/Musculoskeletal/lymphatic: The bilateral upper and lower extremities are warm. There is no evidence of arterial insufficiency. There is no evidence of venous insufficiency/edema. The patient spontaneously moves bilateral upper and lower extremities with no pain and no limitation of movement. There is no apparent, injury or trauma. Skin: The skin is warm, dry and intact. No rashes. No petechia. No purpura. No abnormal bruising. The color is appropriate with no cyanosis. Mental status/Psychiatric: Mental status is appropriate for age. The patient has no apparent delusions, visual hallucinations, no apparent audible hallucinations. The patient has no apparent suicidal thoughts/ideation and no apparent homicidal thoughts/ideation. Neurological: The patient is awake, alert, interactive, cordial, cooperative and is oriented to name and situation. The patient follows commands and answers historical question with no impairment. There is no visual disturbance apparent. The pupils are equal and reactive bilaterally with normal eye movements and no diplopia The bilateral upper and lower extremities have normal strength, normal range of motion and normal functioning. The gait, station and balance were not tested due to acuity Course Quality Measures none Orders Category Date Time Status Insert IV NOW Care 05/16/25 11:02 Active XR chest 1V portable Stat Exams 05/16/25 11:02 Completed BMP [Basic Metabolic Panel] Stat Lab 05/16/25 14:54 Completed CBC Stat Lab 05/16/25 11:35 Completed CBC Stat Lab 05/16/25 14:54 Completed Comprehensive Metabolic Panel Stat Lab 05/16/25 11:35 Completed Lactate (Lactic Acid) Stat Lab 05/16/25 11:35 Completed Lactic Acid, 3 HR Stat Lab 05/16/25 14:54 Completed Lipase Stat Lab 05/16/25 11:35 Completed Prothrombin Time with INR Stat Lab 05/16/25 11:35 Completed Type and Screen Stat Lab 05/16/25 11:35 Completed Urinalysis, C/S if Indicated Stat Lab 05/16/25 11:02 Ordered Sodium Chloride 0.9% 1000 ml [Ns] 1,000 ml Med 05/16/25 11:15 Active IV 100 mls/hr Sodium Chloride 0.9% 1000 ml [Ns] 1,000 ml Med 05/16/25 13:34 Discontinued IV 999 mls/hr oxyCODONE/APAP 5/325 [Percocet 5/325] Med 05/16/25 13:38 Discontinued 2 tab PO X1 ONE Vital Signs Vital signs: Vital Signs Temperature 98.0 F 05/16/25 10:36 Pulse Rate 92 05/16/25 10:36 Respiratory Rate 17 05/16/25 10:36 Blood Pressure 133/73 H 05/16/25 10:36 Pulse Oximetry (%) 96 05/16/25 10:36 Oxygen Delivery Method Room Air 05/16/25 10:36 Discharge Plan Plan Patient Disposition: HOME (Self Care) Prescriptions/Referrals Prescriptions/Med Rec: No Action lisinopril-hydrochlorothiazide 20-12.5 mg Tablet 1 tab PO QDAY gabapentin 300 mg Capsule 300 mg PO BID metformin 750 mg tablet extended release 24 hr 750 mg PO QDAY Patient Comments: TAKE 1 TABLET BY MOUTH DAILY IN THE MORNING tramadol 25 mg tablet 25 mg PO Q6H PRN (Reason: pain) Qty: 1 0RF oxycodone 5 mg capsule 5 mg PO BID MDD 2 PRN (Reason: pain) Qty: 14 0RF atorvastatin 80 mg tablet 80 mg PO HS Patient Comments: TAKE 1 TABLET BY MOUTH EVERY DAY isosorbide mononitrate 30 mg tablet extended release 24 hr 30 mg PO QDAY amlodipine 2.5 mg tablet 2.5 mg PO HS Patient Comments: TAKE 1 TABLET BY MOUTH EVERY DAY clopidogrel 75 mg tablet 75 mg PO QDAY Patient Comments: TAKE 1 TABLET BY MOUTH EVERY DAY FOR HEART AND BRAIN CIRCULATION metoprolol succinate 100 mg tablet extended release 24 hr 100 mg PO QDAY aspirin 81 mg Tablet,Delayed Release (Dr/Ec) 81 mg PO QDAY dicyclomine 10 mg capsule 10 mg PO QDAY Patient Comments: TAKE 1 CAPSULE BY MOUTH TWICE A DAY tramadol 50 mg tablet 50 mg PO TID PRN (Reason: pain) Qty: 20 0RF hydroxyzine HCl 25 mg tablet 25 mg PO QAM clonazepam 1 mg tablet 1 mg PO BID Patient Comments: TAKE 1 TABLET BY MOUTH TWICE A DAY NEEDED FOR ANXIETY trazodone 50 mg Tablet 50 mg PO HS Qty: 30 0RF pantoprazole 40 mg Tablet,Delayed Release (Dr/Ec) 40 mg PO BID Qty: 90 0RF acetaminophen-codeine 300-30 mg tablet 2 tab PO Q8H MDD 6 PRN (Reason: pain) Qty: 20 0RF ciprofloxacin HCl [Cipro] 500 mg tablet 500 mg PO BID Qty: 20 0RF oxycodone-acetaminophen [Percocet] 5-325 mg tablet 2 tab PO Q8H MDD 6 PRN (Reason: pain) Qty: 20 0RF ondansetron 4 mg tablet,disintegrating 4 mg PO Q8H PRN (Reason: nausea and vomiting) Qty: 10 0RF Referrals: Sun Webb NP [Primary Care Provider] - In 1 week Problem List Clinical Impression: Hemorrhage from ileostomy, Acute renal insufficiency, Elevated lactic acid level, Acute dehydration Patient/Caregiver Discharge Instructions Additional Instructions: Your ileostomy bag appears to be functioning well there is no gross blood observed here in the emergency department. Your blood counts are stable without very mild anemia. You are little dehydrated and your lactic acid normalized with some IV fluids. Continue to hydrate yourself and return if getting worse or if you are passing significant blood as we discussed. Your renal function is a little worse than its baseline and this needs be followed by your doctor in 2 to 5 days. Let your doctor know that you are on metformin and other medicines that might need to be adjusted and/or changed if your renal function is getting worse. Print Language: Hebrew MDM Narrative MDM hospital course: Patient is here worried about blood in her ileostomy but there is none visibly present. Her vital signs are good we will check some labs and reevaluate. Patient was observed for several hours and she has no gross blood in her ileostomy. Daughter came and was concerned about irritation of the small bowel in the peristomal area which looks fine now but I explained that this can be friable and cause blood loss especially since she is on Plavix. Also patient's asking for pain medicines and evidently does this frequently she was told she will have to live with the prescribed outpatient medicines that are already given. White count 9.5 hemoglobin 11.5 essentially unchanged from previous hemoglobins. PT/INR within normal limits. Electrolytes are normal BUN 20 creatinine 1.4 which is little higher than previous numbers. Lactic acid came back at 2.5 possibly suggesting the patient is a little dehydrated. Will give her a liter fluid bolus and recheck the lactic acid. Patient feels great other than her chronic back pain. Family was reassured and noted return if there is any gross bleeding assuming the second lactic acid comes back negative she can follow-up with her doctors. Patient advised that she can go home return if bleeding and follow-up with doctor recheck renal function earlier this week. Ashley Sahni am scribing for and in the presence of Dr. Madera. Clinical Information Provided by patient Medical Records Reviewed [facility] Meds/Rx Considered, not Ordered None Labs/Rad/Tests considered, not Ordered None Chronic Illness/Social Conditions Add or document further as needed: CAD status post stenting, PAD s/p stenting, atrial fibrillation, essential hypertension, type 2 diabetes mellitus, esophageal strictures status post dilation, history of bowel ischemia complicated by SBO status post bowel resection and ileostomy at [facility] in [place], after which she was discharged to a assisted where she developed decubitus ulcers that got infected status post debridement at [facility]. EKG EKG not done Lab Interpretation Labs: see narrative above Imaging Imaging interpretation: see narrative above Radiology reports / interpretation(s): Procedure(s): XR chest 1V portable Accession Number(s): [id number] cc: Forest Madera MD; Andrew Mathews MD~ Examination: AP chest single view Technique one AP portable semiupright chest single view Date and time: May 16, 2025 at 1108 hrs. Comparison March 30, 2025 Indications: Fever today. Findings: Normal heart size Lungs are clear. Moderate osteopenia Impression: No pneumonia identified Dictated By: Andrew Mathews MD Medication Administration(s) Medication Administration History Sodium Chloride (Ns) 1,000 mls @ 100 mls/hr IV .Q10H DENISSE Stop: 06/15/25 11:14 Last Infusion: 05/16/25 13:43 Dose: 0 mls/hr Documented By: Admin: 05/16/25 11:50 Dose: 100 mls/hr Documented By: BELÉN Discontinued Medications Sodium Chloride (Ns) 1,000 mls @ 999 mls/hr IV .Q1H1M ONE Stop: 05/16/25 14:34 Last Infusion: 05/16/25 14:30 Dose: Infused Documented By: Admin: 05/16/25 13:43 Dose: 999 mls/hr Documented By: BELÉN Oxycodone/Acetaminophen (Oxycodone/Apap 5/325 Tablet) 2 tab PO X1 ONE Stop: 05/16/25 13:39 Last Admin: 06/21/25 13:52 Dose: 2 tab Documented By: BELÉN Diagnosis Differential diagnosis: sepsis, GI bleed, SBO Sx complications Most likely dx, and/or detailed dx discussion: Patient presents with blood in the ileostomy bag which we observed and saw no gross bleeding. There is only this is got some friable irritated small bowel or stoma. CBCs were checked twice and are stable. Note the patient also had elevated lactic acid is probably dehydrated so the lactic acid came back after the liter of fluid. Creatinine 0 bumped today compared to previous creatinines. Patient can follow-up with her doctor on this. Dispositon Disposition: Discharge Home Disposition comments: Patient has been clearly instructed to follow-up with her doctor to reevaluate the renal insufficiency.
--- NOTE | 2025-05-16 11:02 | XR_ITS ---
Examination: AP chest single view Technique one AP portable semiupright chest single view Date and time: May 16, 2025 at 1108 hrs. Comparison March 30, 2025 Indications: Fever today. Findings: Normal heart size Lungs are clear. Moderate osteopenia Impression: No pneumonia identified
[2025-05-16] MEDS: SODIUM CHLORIDE 0.9% 1000 ML 1,000 ML 100 ML IV (11:50)
[2025-05-16 11:51] LABS: Lactate (Lactic Acid) 2.5 mMol/L (0.4-2.0)
[2025-05-16 12:10] VITALS: BP 151/86; PULSE 90; RESP 18; TEMP 36.7; O2SAT 98
[2025-05-16 12:11] LABS: Basophils % (Auto) 0 % (0-2.5); Eosinophils # (Auto) 0.1 Thou/mm3 (0.0-0.5); Eosinophils % (Auto) 1 % (0-10); Hematocrit 35.4 % (36.0-46.0); Hemoglobin 11.5 g/dL (12.0-16.0); Immature Granulocytes % (Auto) 0 % (0-0); Immature Granulocytes Auto 0.02 Thou/mm3 (0.00-0.00); Lymphocytes # (Auto) 2.4 Thou/mm3 (1.0-4.8); Lymphocytes % (Auto) 26 % (10-50); Mean Corpuscular HGB Conc 32.5 g/dl (31.0-37.0); Mean Corpuscular Hemoglobin 27.1 pg (25.0-35.0); Mean Corpuscular Volume 83 fL (80-100); Monocytes # (Auto) 0.8 Thou/mm3 (0.0-0.8); Monocytes % (Auto) 8 % (0-12); Neutrophils # (Auto) 6.2 Thou/mm3 (1.8-7.7); Neutrophils % (Auto) 65 % (37-80); Nucleated Red Blood Cell % 0 /100 WBC (0); Platelet Count 436 Thou/mm3 (140-440); Prothrombin Time 11.1 Seconds (9.0-12.2); RDW Standard Deviation 48.8 fL (36.4-46.3); Red Blood Count 4.25 Miln/mm3 (4.00-5.20); White Blood Count 9.5 Thou/mm3 (3.6-11.0)
[2025-05-16 12:17] LABS: Alanine Aminotransferase 21 U/L (10-49); Albumin, Serum 4.1 gm/dL (3.4-4.8); Albumin/Globulin Ratio 1.4 (1.2-2.2); Alkaline Phosphatase 193 U/L (46-116); Anion Gap 12 (7-16); Aspartate Amino Transferase 22 U/L (0-34); BUN/Creatinine Ratio 20 Ratio (12-20); Bilirubin,Total 0.3 mg/dL (0.3-1.2); Blood Urea Nitrogen 28 mg/dL (9-23); Calcium 9.7 mg/dL (8.3-10.6); Calcium (Corrected) 9.7 mg/dL (8.5-10.1); Carbon Dioxide 23.2 mMol/L (20.0-31.0); Chloride 105 mMol/L (98-107); Creatinine (Component) 1.4 mg/dL (0.6-1.3); Estimated Creatinine Clearance 34.6 mL/min (>60); Glucose 144 mg/dL (74-106); Lipase 55 U/L (12-53); Osmolality,Calculated 287 (275-295); Sodium 140 mMol/L (136-145); Total Protein 7.1 gm/dL (5.7-8.2); eGFR 42 See Note
[2025-05-16 13:41] VITALS: BP 139/62; PULSE 88; RESP 16; TEMP 36.5; O2SAT 95
[2025-05-16] MEDS: SODIUM CHLORIDE 0.9% 1000 ML 1,000 ML 999 ML IV (13:43)
[2025-05-16] MEDS: oxyCODONE/APAP 5/325 TABLET 2 TAB PO (13:52)
[2025-05-16 14:43] LABS: Reflex Lactate? Y
[2025-05-16 15:08] LABS: Basophils % (Auto) 0 % (0-2.5); Eosinophils # (Auto) 0.1 Thou/mm3 (0.0-0.5); Eosinophils % (Auto) 1 % (0-10); Hematocrit 32.5 % (36.0-46.0); Hemoglobin 10.7 g/dL (12.0-16.0); Immature Granulocytes % (Auto) 0 % (0-0); Immature Granulocytes Auto 0.02 Thou/mm3 (0.00-0.00); Lymphocytes # (Auto) 2.6 Thou/mm3 (1.0-4.8); Lymphocytes % (Auto) 32 % (10-50); Mean Corpuscular HGB Conc 32.9 g/dl (31.0-37.0); Mean Corpuscular Hemoglobin 27.4 pg (25.0-35.0); Mean Corpuscular Volume 83 fL (80-100); Monocytes # (Auto) 0.7 Thou/mm3 (0.0-0.8); Monocytes % (Auto) 9 % (0-12); Neutrophils # (Auto) 4.7 Thou/mm3 (1.8-7.7); Neutrophils % (Auto) 58 % (37-80); Nucleated Red Blood Cell % 0 /100 WBC (0); Platelet Count 360 Thou/mm3 (140-440); RDW Standard Deviation 48.6 fL (36.4-46.3); White Blood Count 8.1 Thou/mm3 (3.6-11.0)
[2025-05-16 15:23] LABS: Anion Gap 12 (7-16); BUN/Creatinine Ratio 14 Ratio (12-20); Blood Urea Nitrogen 21 mg/dL (9-23); Calcium 8.7 mg/dL (8.3-10.6); Carbon Dioxide 19.9 mMol/L (20.0-31.0); Chloride 108 mMol/L (98-107); Creatinine (Component) 1.5 mg/dL (0.6-1.3); Estimated Creatinine Clearance 32.3 mL/min (>60); Glucose 146 mg/dL (74-106); Osmolality,Calculated 285 (275-295); Potassium 4.7 mMol/L (3.4-5.1); Sodium 140 mMol/L (136-145); eGFR 38 See Note
[2025-05-16 15:40] VITALS: BP 115/69; PULSE 85; RESP 16; TEMP 36.6; O2SAT 98
== END 2025-05-16 15:40 | disposition home or self-care (01) ==
PROVIDERS: Emergency Provider Emergency Medicine; PCP Nurse Practitioner Family
DX: K94.11 Enterostomy hemorrhage (principal); Y83.2 Surgical operation with anastomosis, bypass or graft as the cause of abnormal reaction of the patient, or of later complication, without mention of misadventure at the time of the procedure; N28.9 Disorder of kidney and ureter, unspecified; E87.20 Acidosis, unspecified; E86.0 Dehydration; R50.9 Fever, unspecified
CPT/HCPCS: 36415; 71045; 80048; 80053; 81001; 83605; 83690; 85025; 85610; 86850; 86900; 86901; 96360; 96361; 99284; J7030; A9270

== ENCOUNTER 2025-05-19 14:51 | Inpatient (IN) | payer MEDICARE, BC, SELFPAY ==
[2025-05-19] VITALS (13 sets, daily range): BP systolic 87–122; BP diastolic 45–60; PULSE 77–95; RESP 17–20; TEMP 36.1–36.8; O2SAT 95–100; BMI 24.8
--- NOTE | 2025-05-19 16:00 | PD.EDADULT ---
ED General RME/HPI General Chief complaint: Wound/Laceration Stated complaint: ABD PAIN Time Seen by Provider: 05/19/25 15:57 Arrival date/time: 05/19/25 14:51 Limitations: no limitations RME / HPI RME / HPI narrative: DR. YI MAIN ED EVALUATION: 64 year old female presents to the Emergency Department [facility] with complaint of bleeding in the ileostomy site a few days ago and pain today. She had the ileostomy placed after surgery for a SBO in 02/2025, otherwise no complaints until today. No shortness of breath. No other symptoms at this time. She is getting wound care around the site. Patient lives with her , children, and grandchildren. PMHx: CAD status post stenting, PAD s/p stenting, atrial fibrillation, essential hypertension, type 2 diabetes mellitus, esophageal strictures status post dilation, history of bowel ischemia complicated by SBO status post bowel resection and ileostomy at [facility] in [place], after which she was discharged [place] a [place] [facility] [place] where she developed decubitus ulcers that got infected status post debridement at [facility]. Social Hx: Former smoker. No alcohol or substance use. Related Data Home Medications ?Medication ?Instructions ?Recorded ?Confirmed amlodipine 2.5 mg tablet 2.5 mg PO HS 09/10/23 01/29/25 atorvastatin 80 mg tablet 80 mg PO HS 09/10/23 01/29/25 clopidogrel 75 mg tablet 75 mg PO QDAY 09/10/23 01/29/25 isosorbide mononitrate 30 mg 30 mg PO QDAY 09/10/23 01/29/25 tablet,extended release 24 hr aspirin 81 mg tablet,delayed 81 mg PO QDAY 07/07/24 01/29/25 release Held on 02/05/25. Instructions: Resume on 02/05/25. Hold until you see your PCP or GI dicyclomine 10 mg capsule 10 mg PO QDAY 07/07/24 01/29/25 metoprolol succinate 100 mg 100 mg PO QDAY 07/07/24 01/29/25 tablet,extended release 24 hr gabapentin 300 mg capsule 300 mg PO BID 10/19/24 01/29/25 lisinopril 20 1 tab PO QDAY 10/19/24 01/29/25 mg-hydrochlorothiazide 12.5 mg tablet metformin 750 mg tablet,extended 750 mg PO QDAY 10/19/24 01/29/25 release 24 hr clonazepam 1 mg tablet 1 mg PO BID 01/29/25 01/29/25 hydroxyzine HCl 25 mg tablet 25 mg PO QAM 01/29/25 01/29/25 Previous Rx's ?Medication ?Instructions ?Recorded tramadol 50 mg tablet 50 mg PO TID PRN pain #20 tabs 10/24/24 pantoprazole 40 mg tablet,delayed 40 mg PO BID #90 tabs 02/05/25 release trazodone 50 mg tablet 50 mg PO HS #30 tabs 02/05/25 acetaminophen 300 mg-codeine 30 mg 2 tab PO Q8H PRN pain #20 tabs 02/15/25 tablet ciprofloxacin HCl 500 mg tablet 500 mg PO BID #20 tabs 02/17/25 (Cipro) oxycodone-acetaminophen 5 mg-325 2 tab PO Q8H PRN pain #20 tabs 02/17/25 mg tablet (Percocet) ondansetron 4 mg disintegrating 4 mg PO Q8H PRN nausea and 02/18/25 tablet vomiting #10 tabs oxycodone 5 mg capsule 5 mg PO BID PRN pain #14 caps 03/30/25 tramadol 25 mg tablet 25 mg PO Q6H PRN pain #1 tab 03/30/25 Allergies Allergy/AdvReac Type Severity Reaction Status Date / Time codeine Allergy Severe HIVES Verified 02/18/25 07:34 hydrocodone Allergy Severe RASH AND Verified 02/18/25 07:34 SWELLING Iodinated Contrast Media Allergy Severe Hives Verified 02/18/25 07:34 Review of Systems Review of Systems Systems Reviewed: All systems reviewed, normal except as documented Past Medical History Past Medical History NEUROLOGIC: Positive Neurological Disorders, Cerebrovascular Accident and Transient Ischemic Attacks (TIA) CARDIAC: Positive Cardiac Disorders, Myocardial Infarction, Coronary Artery Disease, Hypercholesterolemia, Congestive Heart Failure and Hypertension GASTROINTESTINAL: Positive Gastrointestinal Disorders, Colitis, Diverticulitis, Diverticulosis and Gastroesophageal Reflux Disease REPRODUCTIVE: Positive Previous Pregnancies MUSCULOSKELETAL: Positive Musculoskeletal Disorders, Arthritis and Carpal Tunnel Syndrome ENDOCRINE: Positive Endocrine Disorders, Diabetes Mellitus Type 2 and Hyperthyroidism PSYCHO/SOCIAL: Positive Anxiety OTHER HISTORY: Positive Falls and Chicken Pox Family History FAMILY HISTORY: Positive Family Cancer Surgical History SURGICAL: Positive Cardiac Surgery, Coronary Stent, Tonsillectomy, Tubal Ligation and Section Social History SMOKING STATUS: Former smoker SECOND HAND EXPOSURE: Yes SUBSTANCE USE: does not use ALCOHOL: Never ED Exam General Limitations: Present no limitations General appearance: Present alert, in no apparent distress and other (wears glasses) Head Head exam: Present atraumatic, normocephalic and normal inspection Eye Eye exam: Present normal appearance, PERRL and EOMI ENT ENT exam: Present normal exam, normal oropharynx and mucous membranes moist Neck Neck exam: Present normal inspection, full ROM and trachea midline Chest Chest inspection: Present normal inspection and symmetric chest wall rise Respiratory Respiratory exam: Present normal lung sounds bilaterally Cardiovascular Cardiovascular exam: Present regular rate, normal rhythm and normal heart sounds Abdominal Exam Abdominal exam: Present soft, normal bowel sounds, scar (midline healed, surgical scar) and other (right abdominal stoma) Extremities Exam Extremities exam: Present normal inspection and full ROM Back Exam Back exam: Present normal inspection and full ROM Neurological Exam Neurological exam: Present alert, oriented X3 and CN II-XII intact Psychiatric Psychiatric exam: Present normal affect and normal mood Skin Skin exam: Present warm, dry, intact and normal color Course Quality Measures none Orders Category Date Time Status Banking Assistant NOW Care 05/19/25 16:45 Active Continuous Pulse Oximetry NOW Care 05/19/25 16:45 Completed EKG (ED ONLY) *Do not use* NOW Care 05/19/25 16:45 Completed Insert IV NOW Care 05/19/25 16:45 Active Occult Blood,Stool (Nursing) NOW Care 05/19/25 16:45 Active EKG (ED Only) Stat Exams 05/19/25 16:45 Ordered XR chest 1V portable Stat Exams 05/19/25 16:45 Completed CBC Stat Lab 05/19/25 17:44 Completed Comprehensive Metabolic Panel Stat Lab 05/19/25 17:44 Received Prothrombin Time with INR Stat Lab 05/19/25 17:44 Received Stool Culture Stat Lab 05/19/25 16:46 Ordered Stool for WBCs Stat Lab 05/19/25 16:46 Ordered Urinalysis Stat Lab 05/19/25 16:45 Ordered Morphine Inj Med 05/19/25 17:19 Discontinued 4 mg IVP X1 ONE Ondansetron Inj [Zofran Inj] Med 05/19/25 17:19 Discontinued 4 mg IVP X1 ONE Sodium Chloride 0.9% 1000 ml [Ns] 1,000 ml Med 05/19/25 16:45 Discontinued IV 100 mls/hr Sodium Chloride 0.9% 1000 ml [Ns] 1,000 ml Med 05/19/25 16:45 Discontinued IV 999 mls/hr Vital Signs Vital signs: Vital Signs Temperature 97.0 F 05/19/25 14:59 Pulse Rate 88 05/19/25 14:59 Respiratory Rate 17 05/19/25 14:59 Blood Pressure 101/60 05/19/25 14:59 Pulse Oximetry (%) 96 05/19/25 14:59 Oxygen Delivery Method Room Air 05/19/25 14:59 Discharge Plan Prescriptions/Referrals Prescriptions/Med Rec: No Action lisinopril-hydrochlorothiazide 20-12.5 mg Tablet 1 tab PO QDAY gabapentin 300 mg Capsule 300 mg PO BID metformin 750 mg tablet extended release 24 hr 750 mg PO QDAY Patient Comments: TAKE 1 TABLET BY MOUTH DAILY IN THE MORNING tramadol 25 mg tablet 25 mg PO Q6H PRN (Reason: pain) Qty: 1 0RF oxycodone 5 mg capsule 5 mg PO BID MDD 2 PRN (Reason: pain) Qty: 14 0RF atorvastatin 80 mg tablet 80 mg PO HS Patient Comments: TAKE 1 TABLET BY MOUTH EVERY DAY isosorbide mononitrate 30 mg tablet extended release 24 hr 30 mg PO QDAY amlodipine 2.5 mg tablet 2.5 mg PO HS Patient Comments: TAKE 1 TABLET BY MOUTH EVERY DAY clopidogrel 75 mg tablet 75 mg PO QDAY Patient Comments: TAKE 1 TABLET BY MOUTH EVERY DAY FOR HEART AND BRAIN CIRCULATION metoprolol succinate 100 mg tablet extended release 24 hr 100 mg PO QDAY aspirin 81 mg Tablet,Delayed Release (Dr/Ec) 81 mg PO QDAY dicyclomine 10 mg capsule 10 mg PO QDAY Patient Comments: TAKE 1 CAPSULE BY MOUTH TWICE A DAY tramadol 50 mg tablet 50 mg PO TID PRN (Reason: pain) Qty: 20 0RF hydroxyzine HCl 25 mg tablet 25 mg PO QAM clonazepam 1 mg tablet 1 mg PO BID Patient Comments: TAKE 1 TABLET BY MOUTH TWICE A DAY NEEDED FOR ANXIETY trazodone 50 mg Tablet 50 mg PO HS Qty: 30 0RF pantoprazole 40 mg Tablet,Delayed Release (Dr/Ec) 40 mg PO BID Qty: 90 0RF acetaminophen-codeine 300-30 mg tablet 2 tab PO Q8H MDD 6 PRN (Reason: pain) Qty: 20 0RF ciprofloxacin HCl [Cipro] 500 mg tablet 500 mg PO BID Qty: 20 0RF oxycodone-acetaminophen [Percocet] 5-325 mg tablet 2 tab PO Q8H MDD 6 PRN (Reason: pain) Qty: 20 0RF ondansetron 4 mg tablet,disintegrating 4 mg PO Q8H PRN (Reason: nausea and vomiting) Qty: 10 0RF Referrals: Sun Webb CHEMICAL TECHNICIAN [Primary Care Provider] - In 1 week Problem List Clinical Impression: Dehydration Patient/Caregiver Discharge Instructions Print Language: Urdu MDM Narrative MDM hospital course: I, Ashley Cho am scribing for and in the presence of Dr. Yi. Clinical Information Provided by patient and EMS Medical [facility] Meds/Rx Considered, not Ordered None Labs/Rad/Tests considered, not Ordered None Chronic Illness/Social Conditions Add or document further as needed: CAD status post stenting, PAD s/p stenting, atrial fibrillation, essential hypertension, type 2 diabetes mellitus, esophageal strictures status post dilation, history of bowel ischemia complicated by SBO status post bowel resection and ileostomy at [facility] in [place], after which she was discharged [place] where she developed decubitus ulcers that got infected status post debridement at [facility]. Lab Interpretation Lab(s) interpretation(s): pending Imaging Radiology reports / interpretation(s): pending Medication Administration(s) Medication Administration History Discontinued Medications Sodium Chloride (Ns) 1,000 mls @ 999 mls/hr IV .Q1H1M ONE Stop: 05/19/25 17:45 Last Admin: 05/19/25 17:37 Dose: 999 mls/hr Documented By: SVEN Sodium Chloride (Ns) 1,000 mls @ 100 mls/hr IV .Q10H ONE Stop: 05/20/25 02:44 Last Admin: 05/19/25 18:01 Dose: Not Given Documented By: SVEN Non-Admin Reason: Cancelled by Provider Morphine Sulfate (Morphine Sulf Inj 10 Mg/Ml Vial) 4 mg IVP X1 ONE Stop: 05/19/25 17:20 Last Admin: 05/19/25 17:34 Dose: 4 mg Documented By: SVEN Ondansetron HCl (Ondansetron Inj 2 Mg/Ml Inj 2 Ml) 4 mg IVP X1 ONE; Protocol Stop: 05/19/25 17:20 Last Admin: 05/19/25 17:31 Dose: 4 mg Documented By: SVEN Diagnosis Differential diagnosis: stoma complications, sepsis, cellulitis Most likely dx, and/or detailed dx discussion: No official diagnoses at this time, still pending diagnostic tests. Patient signout to the heel trimmer provider. Dispositon Disposition: other (No final disposition plan at this time, still pending diagnostic tests. Patient signout to the heel trimmer provider. ) Disposition comments: 1800: Patient was signed out to Dr. Botello. Past medical, surgical, social and family history reviewed. Vitals and home medications reviewed. Results and treatment plan discussed. They will assume the care of the patient at this time and will follow the patient, pending diagnostic tests and final disposition.
--- NOTE | 2025-05-19 16:45 | XR_ITS ---
Examination: AP chest single view TECHNIQUE: Apical upright chest single view Date and time: May 19, 2025 1720 hours Comparison May 16, 2025 INDICATIONS: Coughing chest pain fever weakness today. FINDINGS: Subsegmental atelectasis left base Suspicious for early pneumonia right base Normal heart size Prominent osteopenia IMPRESSION: Suspicious for early right base pneumonia
[2025-05-19] MEDS: ONDANSETRON INJ 2 MG/ML INJ 2 ML 4 MG IVP ×2 (17:31→20:50)
[2025-05-19] MEDS: MORPHINE SULF INJ 10 MG/ML VIAL 4 MG IVP (17:34)
[2025-05-19] MEDS: SODIUM CHLORIDE 0.9% 1000 ML 1,000 ML 999 ML IV (17:37)
--- NOTE | 2025-05-19 17:47 | PC.NURSE ---
Patient presents to ED via ambulance with c/o hypotension. per staff at [facility] wound clinic at 84/44, assembler faucets obtained a manual BP at 110/58, also abd pain and back wound pain 07/05. Patient is alert and oriented, ambulatory and able to do all adl's. Patient placed on glass cut off supervisor. call light within reach, updated with plan of care.
[2025-05-19 18:00] LABS: Basophils % (Auto) 1 % (0-2.5); Eosinophils # (Auto) 0.1 Thou/mm3 (0.0-0.5); Eosinophils % (Auto) 2 % (0-10); Hematocrit 29.1 % (36.0-46.0); Hemoglobin 9.9 g/dL (12.0-16.0); Immature Granulocytes % (Auto) 1 % (0-0); Immature Granulocytes Auto 0.07 Thou/mm3 (0.00-0.00); Lymphocytes # (Auto) 2.7 Thou/mm3 (1.0-4.8); Lymphocytes % (Auto) 44 % (10-50); Mean Corpuscular Hemoglobin 27.4 pg (25.0-35.0); Mean Corpuscular Volume 81 fL (80-100); Monocytes # (Auto) 0.8 Thou/mm3 (0.0-0.8); Monocytes % (Auto) 13 % (0-12); Neutrophils # (Auto) 2.4 Thou/mm3 (1.8-7.7); Neutrophils % (Auto) 40 % (37-80); Nucleated Red Blood Cell % 0 /100 WBC (0); Platelet Count 339 Thou/mm3 (140-440); RDW Standard Deviation 46.7 fL (36.4-46.3); Red Blood Count 3.61 Miln/mm3 (4.00-5.20); White Blood Count 6.1 Thou/mm3 (3.6-11.0)
[2025-05-19 18:16] LABS: Alanine Aminotransferase 13 U/L (10-49); Albumin, Serum 3.9 gm/dL (3.4-4.8); Albumin/Globulin Ratio 1.4 (1.2-2.2); Alkaline Phosphatase 181 U/L (46-116); Anion Gap 10 (7-16); Aspartate Amino Transferase 16 U/L (0-34); BUN/Creatinine Ratio 16 Ratio (12-20); Bilirubin,Total 0.2 mg/dL (0.3-1.2); Blood Urea Nitrogen 41 mg/dL (9-23); Calcium 8.9 mg/dL (8.3-10.6); Carbon Dioxide 19.7 mMol/L (20.0-31.0); Chloride 107 mMol/L (98-107); Creatinine (Component) 2.6 mg/dL (0.6-1.3); Estimated Creatinine Clearance 18.6 mL/min (>60); Globulin 2.8 gm/dL (2.3-3.5); Glucose 137 mg/dL (74-106); Osmolality,Calculated 285 (275-295); Potassium 4.3 mMol/L (3.4-5.1); Sodium 137 mMol/L (136-145); Total Protein 6.7 gm/dL (5.7-8.2); eGFR 20 See Note
--- NOTE | 2025-05-19 18:18 | PD.EDADDENDU ---
Emergency Room Addendum Addendum Narrative: 1800: Care assumed from Dr. Hubbard (emergency physician). Past medical, surgical, social and family history reviewed. Vitals and home medications reviewed. Results and treatment plan discussed. They will assume the care of the patient at this time and will follow the patient, pending Labs, CXR, EKG. The following addendum documentation note is intended to reflect any pending information, findings, or radiology results not included in the patient?s initial chart by the previous shift scribe. RADIOLOGY Chest X-Ray: Patient: [facility]. Record#: [id number] Birthdate: 1960 Age/Sex: 64 / F Location: [facility]X Attending Dr: Ordering Physician: Chema Hubbard MD Date of Service: 05/19/25 Procedure(s): XR chest 1V portable Accession Number(s): [id number] cc: Chema Hubbard MD; Sun Webb EQUIPMENT SCHEDULER; Andrew Mathews MD~ Examination: AP chest single view TECHNIQUE: Apical upright chest single view Date and time: May 19, 2025 1720 hours Comparison May 16, 2025 INDICATIONS: Coughing chest pain fever weakness today. FINDINGS: Subsegmental atelectasis left base Suspicious for early pneumonia right base Normal heart size Prominent osteopenia IMPRESSION: Suspicious for early right base pneumonia Dictated By: Andrew Mathews MD Signed By: <Electronically signed by Andrew Mathews MD in OV> 05/19/25 1759 Abdomen/Pelvis CT: Patient: KD [facility]. Record#: [id number] Birthdate: 1960 Age/Sex: 64 / F Location: SERX Attending Dr: Ordering Physician: Genevieve Botello MD Date of Service: 05/19/25 Procedure(s): CT abdomen pelvis wo con Accession Number(s): [id number] cc: Sun Webb NP; Andrew Mathews MD; Genevieve Botello MD~ Examination: CT abdomen and pelvis without contrast. Coronal 3-D reconstructions. Sagittal 2-D reconstructions. Date and time of exam: May 19, 2025, 8:25 PM Comparison March 30, 2025 INDICATIONS: Mid sacral pain and abdominal pain today CTDI: vol (mGy): 7.91 DLP: (mGycm): 406 Technique: Axial images of the abdomen have been obtained, 3 mm slice thickness Intravenous contrast material has not been administered. Low dose protocols were performed. One or more of the following dose reduction techniques were used; automated exposure control, adjustment of the mA and/or KV according to patient size, use of iterative reconstruction technique. Findings: Subsegmental atelectasis in the lower lung zones No focal liver or splenic lesions Absent gallbladder No pancreatic mass Numerous bilateral subcentimeter renal calculi Right ileostomy Edema in the lower mesentery Umbilical hernia which contains bowel axial image 144, measuring 30 mm, no incarcerated bowel No pelvic mass Urinary bladder wall thickening Retroverted uterus Large soft tissue defect in the posterior pelvis destroying distal sacral and all coccygeal segments which appears to extend to the anus although no fluid-filled drainable abscess Extensive transpedicular lumbar fusion L3-S1 Cortical bone destruction involving the posterior sacrum bilaterally axial image 192 IMPRESSION: Edema in the lower mesentery Periumbilical hernia containing bowel but no incarcerated bowel or bowel obstruction Again noted large defect in the posterior pelvis destroying distal sacral and COCCYGEAL segments which appears to extend to the anus, no fluid-filled drainable abscess Cortical bone destruction also involving the posterior sacrum bilaterally consistent with osteomyelitis Consider MRI pelvis without contrast follow-up to assess full extent of osteomyelitis Dictated By: Andrew Mathews MD Signed By: <Electronically signed by Andrew Mathews MD in OV> 05/19/25 2100 EKG manual reading, my interpretation: sinus rhythm, rate: xx bpm, no ST elevation, no acute ischemic changes, interpreted as normal 2000: Upon re-evaluation, patient has an ostomy bag in place with brown clear, liquid with a small amount of fluffy stool. Medial to the ostomy, there's a wound with packing in place, and some serosanguinous drainage. A deep decubitus ulcer with sponge in place. Patient complains of pain from ostomy radiating to the right abdomen, plus pain from the packed wound radiating to the left abdomen. Also patient complains of pain of the wound at her sacrum. 2007: Plans for CT Abdomen with contrast. Patient has allergy to contrast, will medicate. On reviewing labs, patient has acute kidney injury. Will order labs without contrast. 2023: Stool Hemoccult negative. 2151: Discussed with Dr. Alejandra, the hospitalist resident, for consult. Reviewed the patient?s HPI, PMHx, lab and/or radiology results. Treatment plan was discussed. 2221: Discussed with Dr. Pierson in regard to admission. Dr. Pierson states he will admit if surgically necessary. Advised consult with Dr. Hilario. 2303: Discussed with Dr. Hilario, the vaccines solutions specialist, for consult. Reviewed the patient?s HPI, PMHx, lab and/or radiology results. Treatment plan was discussed. 209: Discussed with Dr. Pierson that Dr. Hilario advises no surgical intervention. Patient should still be considered for admission due to acute kidney injury.
--- NOTE | 2025-05-19 20:11 | XR_ITS ---
Examination: CT abdomen and pelvis without contrast. Coronal 3-D reconstructions. Sagittal 2-D reconstructions. Date and time of exam: May 19, 2025, 8:25 PM Comparison March 30, 2025 INDICATIONS: Mid sacral pain and abdominal pain today CTDI: vol (mGy): 7.91 DLP: (mGycm): 406 Technique: Axial images of the abdomen have been obtained, 3 mm slice thickness Intravenous contrast material has not been administered. Low dose protocols were performed. One or more of the following dose reduction techniques were used; automated exposure control, adjustment of the mA and/or KV according to patient size, use of iterative reconstruction technique. Findings: Subsegmental atelectasis in the lower lung zones No focal liver or splenic lesions Absent gallbladder No pancreatic mass Numerous bilateral subcentimeter renal calculi Right ileostomy Edema in the lower mesentery Umbilical hernia which contains bowel axial image 144, measuring 30 mm, no incarcerated bowel No pelvic mass Urinary bladder wall thickening Retroverted uterus Large soft tissue defect in the posterior pelvis destroying distal sacral and all coccygeal segments which appears to extend to the anus although no fluid-filled drainable abscess Extensive transpedicular lumbar fusion L3-S1 Cortical bone destruction involving the posterior sacrum bilaterally axial image 192 IMPRESSION: Edema in the lower mesentery Periumbilical hernia containing bowel but no incarcerated bowel or bowel obstruction Again noted large defect in the posterior pelvis destroying distal sacral and COCCYGEAL segments which appears to extend to the anus, no fluid-filled drainable abscess Cortical bone destruction also involving the posterior sacrum bilaterally consistent with osteomyelitis Consider MRI pelvis without contrast follow-up to assess full extent of osteomyelitis
[2025-05-19] MEDS: MORPHINE SULF INJ 10 MG/ML VIAL 5 MG IVP (20:51)
[2025-05-19 20:55] LABS: Collection Type, Urine Clean Catch
[2025-05-19 21:04] LABS: Bilirubin,Urine Negative (Negative); Blood,Urine Negative (Negative); Clarity,Urine Clear (Clear/Hazy); Color,Urine Colorless (Lt Yel-Yel); Glucose, Urine Negative (Negative); Hyaline Casts,Urine < 1 /hpf (0-1); Ketones,Urine Negative (Negative); Leukocyte Esterase,Urine Positive (Negative); Nitrite,Urine Negative (Negative); PH,Urine 5.5 (5.0-7.0); Protein,Urine Negative (Neg - Trace); RBC,Urine 1 /hpf (0-3); Squamous Epithelial Cell,Urine < 1 /hpf (0-5); Urobilinogen,Urine Negative mg/dL (0.0-1.0); WBC,Urine 16 /hpf (0-5)
[2025-05-19 21:42] LABS: Stool for WBCs Few (Negative)
[2025-05-20] VITALS (32 sets, daily range): BP systolic 73–147; BP diastolic 28–67; PULSE 76–87; RESP 14–96; TEMP 36.3–36.8; O2SAT 94–100; BMI 25.6; BMI 26.2
[2025-05-20] MEDS: SODIUM CHLORIDE 0.9% 1000 ML 1,000 ML 999 ML IV (01:25)
[2025-05-20] MEDS: PIPER/TAZO 2.25 GM 2.25 GM/50 ML BAG IV (01:26)
--- NOTE | 2025-05-20 01:38 | PC.NURSE ---
lopez 2.25 verified with Chema RN no pre mix available
[2025-05-20] MEDS: Vancomycin Inj 1,000 MG in SODIUM CHLORIDE 0.9% 250 ML 250 ML 150 MG IV (01:59)
--- NOTE | 2025-05-20 02:37 | ESHP_ITS ---
<Statement entered by Yvonne Pierson MD - 05/20/25 07:08> I Yvonne Pierson MD reviewed the note and agree with the resident's assessment & plan with exceptions as below. I have personally reviewed labs, imaging, home meds/prior records, examined the patient, formulated and discussed management plan with the IM team. A 64-year-old female with history of SBO s/p colostomy formation 2 months ago, stage IV decubitus ulcer presented to ED with abdominal pain, recent episode of blood in the iliostomy bag and currently having watery output from the colostomy. Further evaluation did reveal elevated creatinine to 2.6. 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 General surgery evaluated and recommended admission for medical management. Will start on IV fluid resuscitation with NS 125 mL an hour. Keep electrolytes within normal limits, empirically treat with Zosyn and vancomycin, will follow-up with general surgery recommendations, consult GI for potential evaluation/intervention of drainage next to the ileostomy site. Documentation for date of: 05/20/25 HPI History of Present Illness Chief complaint: Abd pain and increased ileostomy output History of present illness: 64-year-old female with past medical history of CAD s/p stents, PAD s/p stents, A-fib (no anticoagulation), hypertension, DM2, esophageal stricture s/p dilation, bowel ischemia complicated by SBO s/p bowel resection and ileostomy at [facility] in [place] on 02/2025, and decubitus ulcers s/p debridement at [facility] who was admitted to the hospital on 05/20/2025 after coming to the ED which she complains of increased ileostomy output along with some drainage right beside the ileostomy site. On assessment patient stated that she started having some drainage this from beside her ileostomy site a few days ago and that the drainage was yellowish in color. Patient stated that she has not been able to maintain good oral intake as she has had abdominal pain along with the increased output in the ileostomy bag as well. Patient also mentioned that she had a previous ER visit due to some blood in the ileostomy bag and that she was discharged and since then has not had any more blood in the ileostomy site or back. Patient denied having any fevers, chills, shortness of breath, chest pain, burning sensation urination, or blood in the urine. Otherwise no other new complaints and she did not have anything out of the ordinary in her diet. ED course: Initially came in afebrile and normotensive. Initial labs were relevant for low hemoglobin, NAGMA, SWETHA, and WBC in the stool. Initial imaging included a chest x-ray which was suspicious for a right base pneumonia and abdomen/pelvis CT which showed edema in lower mesentery, periumbilical hernia containing bowel but no incarceration, and osteomyelitis of posterior sacrum. ED provider spoke with general surgeon who stated that there was nothing to do surgically for patient's ileostomy at this time. PMH as above Social Hx: Former smoker, denies any alcohol or illicit drugs Surgical Hx: Esophageal dilation, stents, ileostomy Allergies: Hydrocodone, codeine, iodinated contrast Meds: Pending medication reconciliation as patient did not remember her medications. Review of Systems Review of Systems Systems Reviewed: All systems reviewed, normal except as documented Past Medical History Past Medical History NEUROLOGIC: Positive Neurological Disorders, Cerebrovascular Accident and Transient Ischemic Attacks (TIA) CARDIAC: Positive Cardiac Disorders, Myocardial Infarction, Coronary Artery Disease, Hypercholesterolemia, Congestive Heart Failure and Hypertension GASTROINTESTINAL: Positive Gastrointestinal Disorders, Colitis, Diverticulitis, Diverticulosis and Gastroesophageal Reflux Disease REPRODUCTIVE: Positive Previous Pregnancies MUSCULOSKELETAL: Positive Musculoskeletal Disorders, Arthritis and Carpal Tunnel Syndrome ENDOCRINE: Positive Endocrine Disorders, Diabetes Mellitus Type 2 and Hyperthyroidism PSYCHO/SOCIAL: Positive Anxiety OTHER HISTORY: Positive Falls and Chicken Pox Family History FAMILY HISTORY: Positive Family Cancer Surgical History SURGICAL: Positive Cardiac Surgery, Coronary Stent, Tonsillectomy, Tubal Ligation and Section Social History SMOKING STATUS: Former smoker SECOND HAND EXPOSURE: Yes SUBSTANCE USE: does not use ALCOHOL: Never Exam Vital Signs Temp Pulse Resp BP Pulse Ox O2 Del Method 97.9 F 87 19 92/45 L 95 Room Air 05/20/25 01:08 05/20/25 01:08 05/20/25 01:08 05/20/25 01:30 05/20/25 01:30 05/20/25 01:08 Narrative Exam General: A/O x3, no acute distress, ill appearing Eyes: PERRL, EOMI. Anicteric, vision grossly intact. Ears: No ear pain, no ear discharge, Hearing grossly intact. Nose: No nasal discharge. Mouth/Throat: Dry mucous membranes, no redness, no lesions. Neck: Neck supple, non-tender, no cervical lymphadenopathy. Lungs: Clear EARLENE to auscultation and percussion, No accessory muscle use. Cardio: Normal S1/S2, regular rhythm, no murmurs, no JVD Abdomen: Soft, mildly tender around lower quadrant, no palpable masses, peristalsis present, no guarding or rebound. Ileostomy bag with copious liquidy output, on the left inferior side of the ileostomy site there appears to be some discharge coming out from possible fistula Extremities: Symmetrical, no significant deformities, no peripheral edema , non-tender, peripheral pulses presents. Skin: Sacral wound with clean margins and good granulation tissue Neuro: No focal neurological deficits. motor and sensory intact Psych: Cooperative, appropriate mood and effect. Results: Labs 05/19/25 17:44 05/19/25 17:44 Labs: Short CBC 05/19/25 Range/Units 17:44 WBC 6.1 (3.6-11.0) Thou/mm3 Hgb 9.9 L (12.0-16.0) g/dL Hct 29.1 L (36.0-46.0) % Plt Count 339 (140-440) Thou/mm3 BMP 05/19/25 17:44 Sodium 137 Potassium 4.3 Chloride 107 Carbon Dioxide 19.7 L BUN 41 H Creatinine 2.6 H D Glucose 137 H Calcium 8.9 Liver Function 05/19/25 Range/Units 17:44 Total Bilirubin 0.2 L (0.3-1.2) mg/dL AST 16 (0-34) U/L ALT 13 (10-49) U/L Alkaline Phosphatase 181 H (46-116) U/L Albumin 3.9 (3.4-4.8) gm/dL Urine 05/19/25 Range/Units 20:24 Urine Color Colorless A (Lt Yel-Yel) Urine Clarity Clear (Clear/Hazy) Urine pH 5.5 (5.0-7.0) Ur Specific Eldridge 1.010 (1.001-1.035) Urine Protein Negative (Neg - Trace) Urine Glucose (UA) Negative (Negative) Quality Measures Quality Measures none Advance care planning discussed with:: patient Medications Home Medications and Allergies Home Medications ?Medication ?Instructions ?Recorded ?Confirmed ?Type amlodipine 2.5 mg tablet 2.5 mg PO HS 09/10/23 History atorvastatin 80 mg tablet 80 mg PO HS 09/10/23 5 History clopidogrel 75 mg tablet 75 mg PO QDAY 09/10/2301/29 History isosorbide mononitrate 30 mg 30 mg PO QDAY 09/10/23 History tablet,extended release 24 hr aspirin 81 mg tablet,delayed 81 mg PO QDAY 07/07/24 History release Held on 02/05/25. Instructions: Resume on 02/05/25. Hold until you see your PCP or GI dicyclomine 10 mg capsule 10 mg PO QDAY 07/07/2401/29 History metoprolol succinate 100 mg 100 mg PO QDAY 07/07/24 History tablet,extended release 24 hr gabapentin 300 mg capsule 300 mg PO BID 10/19/2401/29 History lisinopril 20 1 tab PO QDAY 10/19/2401/29 History mg-hydrochlorothiazide 12.5 mg tablet metformin 750 mg tablet,extended 750 mg PO QDAY 01/29/25 History release 24 hr clonazepam 1 mg tablet 1 mg PO BID 01/29/25 5 History hydroxyzine HCl 25 mg tablet 25 mg PO QAM 01/29/2505/20 History Allergies Allergy/AdvReac Type Severity Reaction Status Date / Time codeine Allergy Severe HIVES Verified 02/18/25 07:34 hydrocodone Allergy Severe RASH AND Verified 02/18/25 07:34 SWELLING Iodinated Contrast Media Allergy Severe Hives Verified 02/18/25 07:34 Visit Medications Acetaminophen (Acetaminophen 325 Mg Tablet) 650 mg PO Q6H PRN PRN Reason: Fever >100.4 Stop: 06/19/25 02:26 Acetaminophen (Acetaminophen 325 Mg Tablet) 650 mg PO Q6H PRN PRN Reason: PAIN SCALE 1-3 (mild Stop: 06/19/25 02:26 Hydrocodone Bitart/Acetaminophen (Hydrocodone/Apap 5/325 Tablet) 1 tab PO Q4HR PRN PRN Reason: PAIN SCALE 4-6 (Moderate Stop: 05/25/25 02:26 Heparin Sodium (Porcine) (Heparin Sod Inj 5000 Unit/Ml Vial) 5,000 unit SC Q8HR DENISSE Stop: 06/03/25 05:59 Sodium Chloride (Ns) 1,000 mls @ 75 mls/hr IV .[id number] DENISSE Stop: 05/20/25 15:49 Morphine Sulfate (Morphine Sulf Inj 10 Mg/Ml Vial) 1 mg IVP Q2H PRN PRN Reason: PAIN SCALE 7-10 (Severe Stop: 05/25/25 02:26 Ondansetron HCl (Ondansetron Inj 2 Mg/Ml Inj 2 Ml) 4 mg IVP Q6H PRN; Protocol PRN Reason: NAUSEA OR VOMITING Stop: 06/19/25 02:26 Discontinued Medications Sodium Chloride (Ns) 1,000 mls @ 999 mls/hr IV .Q1H1M ONE Stop: 05/19/25 17:45 Last Infusion: 05/19/25 18:39 Dose: Infused Sodium Chloride (Ns) 1,000 mls @ 100 mls/hr IV .Q10H ONE Stop: 05/20/25 02:44 Last Admin: 05/19/25 18:01 Dose: Not Given Vancomycin HCl 1,000 mg/ (Sodium Chloride) 250 mls @ 150 mls/hr IV X1 ONE Stop: 05/20/25 00:08 Last Admin: 05/20/25 01:59 Dose: 150 mls/hr Piperacillin/Tazobactam/Dextrose (Zosyn) 2.25 gm in 50 mls @ 100 mls/hr IV X1 ONE Stop: 05/19/25 22:59 Last Infusion: 05/20/25 01:56 Dose: Infused Sodium Chloride (Ns) 1,000 mls @ 999 mls/hr IV .Q1H1M ONE Stop: 05/20/25 02:14 Last Admin: 05/20/25 01:25 Dose: 999 mls/hr Morphine Sulfate (Morphine Sulf Inj 10 Mg/Ml Vial) 4 mg IVP X1 ONE Stop: 05/19/25 17:20 Last Admin: 05/19/25 17:34 Dose: 4 mg Morphine Sulfate (Morphine Sulf Inj 10 Mg/Ml Vial) 5 mg IVP X1 ONE Stop: 05/19/25 20:33 Last Admin: 05/19/25 20:51 Dose: 5 mg Ondansetron HCl (Ondansetron Inj 2 Mg/Ml Inj 2 Ml) 4 mg IVP X1 ONE; Protocol Stop: 05/19/25 17:20 Last Admin: 05/19/25 17:31 Dose: 4 mg Ondansetron HCl (Ondansetron Inj 2 Mg/Ml Inj 2 Ml) 4 mg IVP X1 ONE Stop: 05/19/25 20:33 Last Admin: 05/19/25 20:50 Dose: 4 mg Assessment & Plan Plan 64-year-old female with past medical history of CAD s/p stents, PAD s/p stents, A-fib (no anticoagulation), hypertension, DM2, esophageal stricture s/p dilation, bowel ischemia complicated by SBO s/p bowel resection and ileostomy at [facility] in [place] on 02/2025, and decubitus ulcers s/p debridement at [facility] who was admitted to the hospital on 05/20/2025 for SWETHA likely in the setting of increased ileostomy output versus colitis. #SWETHA #NAGMA #Increased ileostomy output #Colitis? #Hx of bowel ischemia complicated by SBO s/p bowel resection ileostomy Patient states she has been having increased ileostomy output for a few days now along with abdominal pain. Patient's creatinine on admission was 2.6 from 0.8 on 03/2025 and 1.5 on 05/16/2025 NAGMA and SWETHA likely in the setting of increased ileostomy output Patient has been a poor oral intake Patient did notice that she has been having increased ileostomy output with some drainage right beside ileostomy site. Abdomen/pelvis CT showed edema in lower mesentery as well as umbilical hernia with bowel without any incarceration. Few WBC was seen in the stool No WBC elevation no fevers ED physician spoke with general surgery as stated nothing to do surgically at this timeED physician spoke with general surgery as stated nothing to do surgically at this time Plan: IV Zosyn Stool cultures and stool analysis ordered Consider loperamide if patient's ileostomy output does not decrease tomorrow IV fluids Renally dose medication Avoid nephrotoxic agents Consider GI consult if patient's symptoms do not improve Will continue to monitor #Normocytic normochromic anemia Patient hemoglobin 9.9 today Patient's baseline hemoglobin around 11-12 No active signs of bleeding Plan: FOBT Transfer hemoglobin less than 7 #Osteomyelitis of sacrum #Decubitus ulcer s/p debridement Patient has an open wound in sacral area which was debrided secondary to a decubitus ulcer. Plan: Wound care ordered Chronic diseases: #CAD s/p stents #Hx of A-fib #Hx of PAD s/p stents #Hx hypertension Patient's blood pressure has been on the softer end during admission therefore we will hold off on antihypertensive medications for now Restart patient's home medications 1 medication reconciliation is done. #Hx of DM 2 Patient states that she manages her diabetes with dieting Last A1c was 5.9 Consider starting ISS hypoglycemia protocol depending on patient's blood glucose in am labs Disposition: Patient admitted to telemetry for SWETHA 2/2 increased ileostomy output. Diet: cardiac, renal GI prophylaxis: not indicated DVT prophylaxis: SCDs Code: Full Case disclosed with Attending Dr. Dangelo King PGY1 Disclaimer: Even though this this note was dictated by speech recognition and even though it was carefully revised there may still be minor errors in assistant plant manager due to voice recognition software.
[2025-05-20 03:06] LABS: Lactate (Lactic Acid) 1.6 mMol/L (0.4-2.0)
[2025-05-20 03:08] LABS: Basophils % (Auto) 0 % (0-2.5); Eosinophils # (Auto) 0.1 Thou/mm3 (0.0-0.5); Eosinophils % (Auto) 2 % (0-10); Hematocrit 30.4 % (36.0-46.0); Hemoglobin 10.1 g/dL (12.0-16.0); Immature Granulocytes % (Auto) 0 % (0-0); Immature Granulocytes Auto 0.02 Thou/mm3 (0.00-0.00); Lymphocytes # (Auto) 2.7 Thou/mm3 (1.0-4.8); Lymphocytes % (Auto) 41 % (10-50); Mean Corpuscular HGB Conc 33.2 g/dl (31.0-37.0); Mean Corpuscular Hemoglobin 27.7 pg (25.0-35.0); Mean Corpuscular Volume 83 fL (80-100); Monocytes # (Auto) 0.8 Thou/mm3 (0.0-0.8); Monocytes % (Auto) 13 % (0-12); Neutrophils # (Auto) 2.8 Thou/mm3 (1.8-7.7); Neutrophils % (Auto) 43 % (37-80); Nucleated Red Blood Cell % 0 /100 WBC (0); Platelet Count 311 Thou/mm3 (140-440); RDW Standard Deviation 49.3 fL (36.4-46.3); Red Blood Count 3.65 Miln/mm3 (4.00-5.20); White Blood Count 6.4 Thou/mm3 (3.6-11.0)
[2025-05-20] MEDS: SODIUM CHLORIDE 0.9% 500 ML 500 ML 999 ML IV (03:37)
[2025-05-20] MEDS: SODIUM CHLORIDE 0.9% 1000 ML 1,000 ML 100 ML IV ×2 (03:38→19:40)
--- NOTE | 2025-05-20 03:40 | PC.NURSE ---
notified DR Peacock that BP was very low new orders put in by doctor and fluids started will continue to monitor
[2025-05-20 04:24] LABS: Alanine Aminotransferase 11 U/L (10-49); Albumin, Serum 3.4 gm/dL (3.4-4.8); Albumin/Globulin Ratio 1.3 (1.2-2.2); Alkaline Phosphatase 159 U/L (46-116); Anion Gap 10 (7-16); Aspartate Amino Transferase 14 U/L (0-34); BUN/Creatinine Ratio 14 Ratio (12-20); Bilirubin,Total 0.2 mg/dL (0.3-1.2); Blood Urea Nitrogen 36 mg/dL (9-23); Calcium 8.5 mg/dL (8.3-10.6); Carbon Dioxide 16.2 mMol/L (20.0-31.0); Chloride 113 mMol/L (98-107); Creatinine (Component) 2.6 mg/dL (0.6-1.3); Estimated Creatinine Clearance 18.6 mL/min (>60); Globulin 2.7 gm/dL (2.3-3.5); Glucose 170 mg/dL (74-106); Magnesium 1.4 mg/dL (1.6-2.6); Osmolality,Calculated 289 (275-295); Phosphorous 4.9 mg/dL (2.4-5.1); Potassium 4.2 mMol/L (3.4-5.1); Sodium 139 mMol/L (136-145); Total Protein 6.1 gm/dL (5.7-8.2); eGFR 20 See Note
--- NOTE | 2025-05-20 05:36 | PC.NURSE ---
report called to Giovanni GONG
[2025-05-20] MEDS: MORPHINE SULF INJ 10 MG/ML VIAL IVP ×6 (05:52→17:59)
[2025-05-20] MEDS: Magnesium Sulfate 4 GM Ivpb 4 GM/50 ML BAG IV (08:04)
[2025-05-20] MEDS: PIPER/TAZO 3.375 GM PREMIX 3.375 GM/50 ML BAG IV (08:05)
--- NOTE | 2025-05-20 10:40 | ESPR_ITS ---
<Statement entered by Do Gore MD - 05/20/25 15:09> This 64-year-old female with past medical history of coronary artery disease status post stents, peripheral artery disease, A-fib not on anticoagulation, hypertension, DM type II, esophageal stricture status post dilatation, bowel ischemia complicated by SBO, status post bowel resection and ileostomy, ileostomy bag is in place (February 2025), decubitus ulcers status post debridements at [facility] presented with chief complaints of abdominal pain, increased ileostomy output, as well as an yellow drainage near the ileostomy site. Symptoms began a few days ago with increased drainage from beside the ileostomy site, describes as yellowish in color. Patient also had associated symptoms such as abdominal pain, decreased oral intake due to pain and increased ileostomy output. Patient denies any fever, chills, shortness of breath, chest pain, or any other associated symptoms. Physical exam was positive for abdominal tenderness likely due to increased ileostomy output and drainage near the site. Evidence of yellowish drainage next to the ileostomy, possible suggestive of a fistula. Patient also has extensive stage IV decubitus ulcer over the sacrum with concern of osteomyelitis of the sacrum. On presentation initial labs showed anemia most likely chronic disease related, SWETHA likely due to poor kidney perfusion, increased ileostomy output and dehydration. Imaging CT/pelvis revealed edema in the lower mesentery which may indicate inflammation, possible ischemia or infection. Periumbilical hernia which contains bowel but no signs of incarceration or obstruction. 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 Given the complexity of her condition patient was admitted for close monitoring and management. For ongoing management of the stage IV decubitus ulcer, especially with sacral osteomyelitis patient may require debridement or surgical intervention if the infection progresses, ID is on board, plan is to continue IV antibiotics, will follow-up with further recs Given the complexity of this case as internal medicine team it is critical for us to stabilizing the patient, managing her SWETHA, metabolic acidosis/NAGMA and possible infection. Given the possibility of fistula near the ileostomy bag, it is important to clarify with surgery whether they believe this is a real ilial cutanous or colocutaneous fistula as this could guide both the surgical approach and the need for further imaging or intervention. Since the patient is allergic to contrast alternative like MRI ultrasound could be considered to evaluate the fistula if needed. Obtaining prior medical records from her previous surgery is a jenkins step, as it will allow for a more informed decision regarding her current care. This will help determine any complications from the prior surgery that might affect the current management. Surgery as previously recommended to transfer the patient to higher level of care. Given the severe decubitus ulcer with osteomyelitis in the fistula the decision will depend on the resources available in house versus what a higher level care facility can offer. Two different surgeons have recommended transferring the patient to the hospital where her previous surgery was done. We will continue treating SWETHA, stabilizing the patient, however both surgeons emphasized that she should be cared for by the same surgical team to ensure continued of care and proper management of her current symptoms. Meanwhile we will continue nutritional support, pain management, conservative treatment at this point. Patient care was discussed with attending physician Dr. Mitul Gore MD PGY-2 I have carefully reviewed this document. Due to imperfections in the voice software, there could be grammatical errors including phonetic/typographic errors. This in no way compromises the medical care the patient is receiving Documentation for date of: 05/20/25 Subjective Subjective Interval history: Overnight admission. Seen and examined at bedside and upon exam patient has a wound midline to ostomy bag that has been packed and currently draining per patient, which affects adhesion of ostomy bag that also then begins to leak. Per patient, procedure happened on 02/2025 after which she went to her rehab center and developed a sacral ulcer and then went to [facility] in [place] for debridement. Requests were sent to obtain records from both [facility] in [place] as well as [facility] in [place] and touched base with general surgeons in house. At this time will await records, but surgery previously recommended to transfer for higher level of care, specifically to where procedure was done. For osteomyelitis of sacrum, infectious disease was consulted and recommended to start on doxycycline 100 mg twice daily and IV Rocephin that was started. For her NAGMA and SWETHA we will continue with IV fluids and monitor renal function as well as I's and O's. Exam Vital Signs Temp Pulse Resp BP Pulse Ox O2 Del Method 97.6 F 76 18 120/63 97 Room Air 05/20/25 06:31 05/20/25 06:31 05/20/25 06:31 05/20/25 06:31 05/20/25 06:31 05/20/25 06:31 Narrative Exam General: AOx3, no acute distress, able to speak full sentences HEENT: NC/AT, mucous membranes moist, bilateral sclera anicteric Cardiovascular: regular rate and rhythm, S1/S2 present, no murmurs appreciated Pulmonary: clear to auscultation bilaterally, no rales/rhonchi/wheezes Abdominal: left-sided ostomy bag present with another draining lesion noted midline to ostomy bag, soft, non-distended Musculoskeletal: normal ROM, no peripheral edema Skin: midline abdominal scar present, warm and dry, intact, no rashes Neuro: CN II-XII intact, no focal deficits Objective Labs 05/21/25 04:31 05/21/25 04:31 Labs: Laboratory Results - last 24 hr 05/19/25 05/19/25 05/20/25 17:44 20:24 03:00 WBC 6.1 6.4 RBC 3.61 L 3.65 L Hgb 9.9 L 10.1 L Hct 29.1 L 30.4 L MCV 81 83 MCH 27.4 27.7 MCHC 34.0 33.2 RDW Std Deviation 46.7 H 49.3 H Plt Count 339 311 Neut % (Auto) 40 43 Lymph % (Auto) 44 41 [place] % (Auto) 13 H 13 H Eos % (Auto) 2 2 Baso % (Auto) 1 0 Neut # (Auto) 2.4 2.8 Lymph # (Auto) 2.7 2.7 [place] # (Auto) 0.8 0.8 Eos # (Auto) 0.1 0.1 Baso # (Auto) 0.0 0.0 Immature Gran # (Auto) 0.07 H 0.02 H Absolute Nucleated RBC 0.00 0.00 Immature Gran % 1 H 0 Nucleated RBC % 0 0 PT 11.0 INR 1.0 Sodium 137 139 Potassium 4.3 4.2 Chloride 107 113 H Carbon Dioxide 19.7 L 16.2 L Anion Gap 10 10 BUN 41 H 36 H Creatinine 2.6 H D 2.6 H Estim Creat Clear Calc 18.6 L 18.6 L eGFR 20 L 20 L BUN/Creatinine Ratio 16 14 Glucose 137 H 170 H Calculated Osmolality 285 289 Lactic Acid 1.6 Calcium 8.9 8.5 Corrected Calcium 9.0 9.0 Phosphorus 4.9 Magnesium 1.4 L Total Bilirubin 0.2 L 0.2 L AST 16 14 ALT 13 11 Alkaline Phosphatase 181 H 159 H D Total Protein 6.7 6.1 Albumin 3.9 3.4 D Globulin 2.8 2.7 Albumin/Globulin Ratio 1.4 1.3 Ur Collection Type Clean Catch Urine Color Colorless A Urine Clarity Clear Urine pH 5.5 Ur Specific [place] 1.010 Urine Protein Negative Urine Glucose (UA) Negative Urine Ketones Negative Urine Blood Negative Urine Nitrite Negative Urine Bilirubin Negative Urine Urobilinogen (Auto) Negative Ur Leukocyte Esterase Positive Urine RBC 1 Urine WBC 16 H Ur Squamous Epith Cells < 1 Urine Bacteria None Hyaline Casts < 1 Stool for White Cells Few A Quality Measures Quality Measures none Advance care planning discussed with:: patient and spouse Assessment & Plan Assessment Current Active Medications: Generic Name Dose Route Start Last Admin Trade Name Freq PRN Reason Stop Dose Admin Acetaminophen 650 mg 05/20/25 02:27 Acetaminophen 325 Mg Tablet PO 06/19/25 02:26 Q6H PRN Fever >100.4 Acetaminophen 650 mg 05/20/25 02:27 Acetaminophen 325 Mg Tablet PO 06/19/25 02:26 Q6H PRN PAIN SCALE 1-3 (mild Piperacillin/Tazobactam/Dextrose 3.375 gm in 50 mls @ 100 mls/hr 05/20/25 09:00 05/20/25 08:05 Zosyn IV 05/27/25 08:59 100 mls/hr Q12HR DENISSE Administration Protocol Sodium Chloride 1,000 mls @ 100 mls/hr 05/20/25 03:32 05/20/25 03:38 Ns IV 05/20/25 13:31 100 mls/hr .Q10H DENISSE Administration Magnesium Sulfate 4 gm in 50 mls @ 12.5 mls/hr 05/20/25 07:36 05/20/25 08:04 Magnesium Sulfate Ivpb IV 05/20/25 11:35 12.5 mls/hr X1 ONE Administration Morphine Sulfate 1 mg 05/20/25 02:27 05/20/25 10:39 Morphine Sulf Inj 10 Mg/Ml Vial IVP 05/25/25 02:26 1 mg Q2H PRN Administration PAIN SCALE 7-10 (Severe Ondansetron HCl 4 mg 05/20/25 02:27 Ondansetron Inj 2 Mg/Ml Inj 2 Ml IVP 06/19/25 02:26 Q6H PRN NAUSEA OR VOMITING Protocol Plan Ariadna Albarran is a 64-year-old female with a past medical history of CAD status post stents, PAD status post stents, A-fib not on anticoagulation, hypertension, type 2 diabetes mellitus, esophageal stricture status post dilatation, ischemic colitis complicated by SBO status post bowel resection ileostomy on 02/2025, decubitus ulcer status post debridement at [facility] who is admitted for NAGMA, SWETHA, and increased ileostomy output. #Acute kidney injury, likely prerenal #NAGMA Increased ileostomy output for the last few days with associated abdominal pain, initial creatinine on admission 2.6 (baseline less than 1). CT A/P showed edema in lower mesentery, large defect in posterior pelvis showing sacral and coccyx 0 segments that extend to anus, cortical bone restriction of posterior sacrum bilaterally, periumbilical hernia with bowel but no incarcerated bowel or bowel obstruction. ? NS at 100 cc/h ? Avoid nephrotoxic agents when possible, renally dose medications ? Strict I's and O's #Ischemic colitis complicated by SBO status post bowel resection and ileostomy Per patient, procedure happened on 02/2025 after which she went to her rehab center. Requests were sent to obtain records from both [facility] in [place] and touched base with general surgeons in house. At this time will await records, but surgery previously recommended to transfer for higher level of care, specifically to where procedure was done. ? Obtain records from [facility] in [place] ? Possible transfer #Osteomyelitis of sacrum #Decubitus ulcer status post debridement ? Infectious disease following, appreciate recommendations ? Doxycycline 100 mg IV twice daily (05/20-) ? Ceftriaxone 2 g IV daily (05/20-) ? Obtain records from [facility] ? Blood cultures 05/20: Pending ? Wound care #Increased ileostomy output/diarrhea ? Follow-up stool studies ? Follow-up stool culture #CAD s/p #PAD status post stents Not on antiplatelets or statin per med rec #Hypertension Blood pressure within range in house at this time, will hold on antihypertensives but none noted on med rec. #Type 2 diabetes mellitus A1c 5.9% on 02/11/2025. Blood sugar 170, will defer SSI at this time given normal A1c in January. Hospital management: Disposition: IVF for SWETHA and NAGMA, pending records from outside facilities Fluids: NS at 100 cc/hr Diet: cardiac Lines: PIV DVT prophylaxis: SC heparin TID GI prophylaxis: pantoprazole CODE STATUS: full code ----- Plan discussed with attending physician Dr. Mitul Hough MD PGY-1 Internal Medicine Attending Provider Attestation/Addendum I have examined the patient, reviewed labs and imaging findings, discussed the case with the resident(s), and reviewed entered orders. I agree with the plan of care as outlined in this note, with these additional summaries/recommendations: Patient seen at bedside. She reports she was recently diagnosed with ischemic colitis and admitted to [place] and underwent partial colectomy with ileostomy bag with Dr. Alphonso Hughes. At bedside ileostomy bag appears to be functioning well although there is a lateral defect to the ileostomy which appears to be an open wound and draining serosanguineous fluid. Per patient it is from her incisional scar that opens up from time to time although unclear if this related to recent surgery. We will contact [facility] for records. We will touch base with in-house surgery again to see if any surgical intervention is needed at this time. Continue wound care. There was concern for presumptive communicating fistula on admission although unable to confirm at this time. Patient reports she is allergic to contrast. Will discuss with in-house IR while awaiting records. Patient also noted to have stage IV coccygeal decubitus ulcer with full-thickness tissue loss with exposed muscle and minimal drainage. CT abdomen revealed osteomyelitis of coccygeal segments and sacrum. Infectious disease consulted, recommendations appreciated. Continue IV antibiotics. Patient apparently was also endorsing infectious diarrhea on admission although stool appears firm in the ileostomy bag. Stool culture pending. Patient also noted to have acute kidney injury. With etiology prerenal from dehydration versus possible intrinsic component from previous hospitalization. Continue IV fluids and repeat renal panel in AM. If no improvement we will consult nephrology. Continue to monitor urinary output. Continue to hold antihypertensives for soft blood pressure. Patient updated on the plan and in agreement. All questions answered to satisfaction. Please see residents note for additional details and management. Dr. Mitul MD
[2025-05-20 11:04] LABS: Sed Rate (ESR) 40 mm/hr (0-30)
[2025-05-20 11:27] LABS: C-Reactive Protein 2.2 mg/dL (0.0-0.9)
--- NOTE | 2025-05-20 11:28 | PC.SS ---
SS follow up note; IV ABX, possible GI Consult. Patient will discharge home when medically cleared.
--- NOTE | 2025-05-20 11:29 | PC.SS ---
Patient Ariadna Albarran is a 64 Year old female admitted for SWETHA. SS met with patient at bedside to discuss discharge planning and review demographic information. Patient reports she lives at home with her , Ceasar Thompson who she reports is her surrogate decision maker [phone]. Patient reports she does not utilize any source of DME to assist with ambulation. Patient does not utilize any home 02. PCP is Sun Webb At time of discharge patient will return home. Family will provide transportation. Next of Kin: Edvin Ceasar Thompson [phone] Discharge plan: Home PCP: Sun Webb
--- NOTE | 2025-05-20 13:06 | ESPR_ITS ---
Subjective Subjective Interval history: on empiric abx. prior urine in march with coag neg staph. likely a contaminant/colonizer. pmh of hld, htn, recent cipro rx, dm II on metformin. has some claire. vanco/zosyn has more nephrotoxicity than vanco alone and zosyn not felt to have independent nephrotoxicity. Exam Vital Signs Temp Pulse Resp BP Pulse Ox O2 Del Method 98.2 F 81 14 107/54 L 95 Room Air 05/20/25 08:00 05/20/25 08:00 05/20/25 08:00 05/20/25 08:00 05/20/25 08:00 05/20/25 08:00 Narrative Exam loquacious. not ill appearing du noted. abd mildly tender diffusely. Objective - Internal Medicine Labs 05/20/25 03:00 05/20/25 03:00 Labs: Laboratory Results - last 24 hr 05/19/25 05/19/25 05/20/25 17:44 20:24 03:00 WBC 6.1 6.4 RBC 3.61 L 3.65 L Hgb 9.9 L 10.1 L Hct 29.1 L 30.4 L MCV 81 83 MCH 27.4 27.7 MCHC 34.0 33.2 RDW Std Deviation 46.7 H 49.3 H Plt Count 339 311 Neut % (Auto) 40 43 Lymph % (Auto) 44 41 [place] % (Auto) 13 H 13 H Eos % (Auto) 2 2 Baso % (Auto) 1 0 Neut # (Auto) 2.4 2.8 Lymph # (Auto) 2.7 2.7 [place] # (Auto) 0.8 0.8 Eos # (Auto) 0.1 0.1 Baso # (Auto) 0.0 0.0 Immature Gran # (Auto) 0.07 H 0.02 H Absolute Nucleated RBC 0.00 0.00 Immature Gran % 1 H 0 Nucleated RBC % 0 0 ESR 40 H PT 11.0 INR 1.0 Sodium 137 139 Potassium 4.3 4.2 Chloride 107 113 H Carbon Dioxide 19.7 L 16.2 L Anion Gap 10 10 BUN 41 H 36 H Creatinine 2.6 H D 2.6 H Estim Creat Clear Calc 18.6 L 18.6 L eGFR 20 L 20 L BUN/Creatinine Ratio 16 14 Glucose 137 H 170 H Calculated Osmolality 285 289 Lactic Acid 1.6 Calcium 8.9 8.5 Corrected Calcium 9.0 9.0 Phosphorus 4.9 Magnesium 1.4 L Total Bilirubin 0.2 L 0.2 L AST 16 14 ALT 13 11 Alkaline Phosphatase 181 H 159 H D C-Reactive Prot, Quant 2.2 H Total Protein 6.7 6.1 Albumin 3.9 3.4 D Globulin 2.8 2.7 Albumin/Globulin Ratio 1.4 1.3 Ur Collection Type Clean Catch Urine Color Colorless A Urine Clarity Clear Urine pH 5.5 Ur Specific [place] 1.010 Urine Protein Negative Urine Glucose (UA) Negative Urine Ketones Negative Urine Blood Negative Urine Nitrite Negative Urine Bilirubin Negative Urine Urobilinogen (Auto) Negative Ur Leukocyte Esterase Positive Urine RBC 1 Urine WBC 16 H Ur Squamous Epith Cells < 1 Urine Bacteria None Hyaline Casts < 1 Stool for White Cells Few A Assessment & Plan A&P Narrative presumptive ec fistula and du, du knoown to pt but not the fistula or the potential for such wt loss dm II. on metformin as outpt htn hld claire 2 role of abx in doubt to me. abx will not heal a fistula or du. du's improve with avoidance of pressure. if you think there is a fistula then you can look at rectal non iodinated contrast (she is allergic to iodinated contrast) and see if it goes into the supposed fistula osteo can be treated but no mention of osteo in ct report bloody drainage in ileostomy bag likely a larger concern. one worries that she has [place] at her age with both parents from [place] in their 50's if lower gi bleeding not infectious. then osh may have more impact for her If you really want her on rx, suggest non nephrotoxic regimen of po doxy 100 bid and iv rocephin I can sed again sunday but more data needed desperately. Time Spent With Patient Time: Total time spent is greater than 50% in coordination of care (as documented) at patient's floor/unit and/or counseling patient:
[2025-05-20] MEDS: oxyCODONE/APAP 5/325 TABLET 1 TAB PO ×2 (16:51→22:57)
--- NOTE | 2025-05-20 17:15 | ESCONSULT_ITS ---
RE: KD PORRAS : 1960 DATE OF CONSULTATION: 05/20/2025 REFERRING PHYSICIAN: Dr. Bain. REASON FOR CONSULTATION: Decubitus ulceration with osteomyelitis, although no mention of osteomyelitis is noted on the imaging, although there is a focus on destruction of the coccyx noted. The sacrum is also rather destroyed. There may be a fistula, but there have been no studies to verify that. Usually that is verified prior to transfer to a higher level of care. The patient is unaware of the potential for fistula, but she is just aware of her hypertension and diabetes and states she had an ostomy done at [facility] for bowel obstruction several years ago. They were unable to do any other surgery, so she had the obstruction and it resolved. Her other surgeries include one for her last child who is currently about 31 years of age and ostomy. She also has lost weight of about 40 pounds. She gained about 10 pounds back and had a spinal fusion done in 2022 at [place]. ALLERGIES: MULTIPLE INCLUDING CODEINE, HYDROCODONE, AND IODINATED CONTRAST. IMMUNIZATIONS: Last tetanus is not known. She does take a flu shot almost every year, has not had COVID vaccine and does not recall a pneumococcal vaccine, although she is just 64. FAMILY HISTORY: Positive for cancer in both parents who young in their 50s. SOCIAL HISTORY: She lives with her and three granddaughters. Her daughter lives out back. They have four girls and one boy. She has 6 pregnancies, one termination, and one . She has 5 children. She has mild anemia . Creatinine was normal, has gone up significantly and continues to rise, but seems to have stabilized at about 2.6. This is unfavorable. The patient reports that she saw the wound care team and they sent her to the hospital with a concern for sepsis, but she has not had a fever here and her white blood cell count is normal, so I think the sepsis is probably off the table. Blood cultures were just done today. This was a bit early to put that on as potential. Urine culture from March shows Staphylococcus cohnii, a coagulase negative staph species. ASSESSMENT: 1. Presumptive sacral osteomyelitis and enterocutaneous fistula. Little evidence to prove either one at this time. 2. Para 6, 5. 3. Diabetes. 4. Hypertension. 5. Hyperlipidemia. RECOMMENDATIONS: Please control the patient's diabetes. We will check some labs tomorrow and they check on her again on Sunday. Please note that antibiotics only kill germs and they do not heal wounds, so if she has decubitus related to infection, it may improve with antibiotics, but may not because of the infection unless the pressure is also avoided. She does try to avoid pressure on her backside stating that she acquired the decubitus in [place] when she had surgery in [place] about a number of years ago and apparently it has been there though. She has noticed it since November. It was fairly large at that time. She does try to avoid pressure. I do not know if she has had a colonoscopy or other evaluation for colon cancer, but if her parents of colon cancer, then that would be a strong indication for that. DT: 13:51:53 TT: 16:49:00 Ref: [id number] - TID: [id number] MTDD
[2025-05-20] MEDS: DOXYCYCLINE INJ 100 MG in SODIUM CHLORIDE 0.9% (POP) 100 ML IV (20:23)
[2025-05-20] MEDS: clonazePAM 0.5 MG TABLET 1 MG PO (20:26)
[2025-05-20] MEDS: traZODone HCL 50 MG TABLET PO (20:27)
[2025-05-20] MEDS: PANTOPRAZOLE 40 MG TABLET PO (20:27)
[2025-05-21] VITALS (12 sets, daily range): BP systolic 110–167; BP diastolic 59–74; PULSE 62–91; RESP 15–98; TEMP 36.3–36.6; O2SAT 94–98; BMI 26.3
[2025-05-21] MEDS: MORPHINE SULF INJ 10 MG/ML VIAL IVP ×3 (02:29→18:14)
[2025-05-21] MEDS: oxyCODONE/APAP 5/325 TABLET 1 TAB PO ×3 (05:13→20:23)
[2025-05-21 05:55] LABS: Basophils % (Auto) 0 % (0-2.5); Eosinophils # (Auto) 0.1 Thou/mm3 (0.0-0.5); Eosinophils % (Auto) 2 % (0-10); Hemoglobin 9.3 g/dL (12.0-16.0); Immature Granulocytes % (Auto) 0 % (0-0); Immature Granulocytes Auto 0.01 Thou/mm3 (0.00-0.00); Lymphocytes # (Auto) 2.1 Thou/mm3 (1.0-4.8); Lymphocytes % (Auto) 37 % (10-50); Mean Corpuscular HGB Conc 33.2 g/dl (31.0-37.0); Mean Corpuscular Hemoglobin 27.7 pg (25.0-35.0); Mean Corpuscular Volume 83 fL (80-100); Monocytes # (Auto) 0.6 Thou/mm3 (0.0-0.8); Monocytes % (Auto) 11 % (0-12); Neutrophils # (Auto) 2.8 Thou/mm3 (1.8-7.7); Neutrophils % (Auto) 50 % (37-80); Nucleated Red Blood Cell % 0 /100 WBC (0); Platelet Count 322 Thou/mm3 (140-440); RDW Standard Deviation 48.4 fL (36.4-46.3); Red Blood Count 3.36 Miln/mm3 (4.00-5.20); White Blood Count 5.6 Thou/mm3 (3.6-11.0)
[2025-05-21 06:58] LABS: Alanine Aminotransferase 10 U/L (10-49); Albumin, Serum 3.3 gm/dL (3.4-4.8); Albumin/Globulin Ratio 1.3 (1.2-2.2); Alkaline Phosphatase 158 U/L (46-116); Anion Gap 10 (7-16); Aspartate Amino Transferase 13 U/L (0-34); BUN/Creatinine Ratio 11 Ratio (12-20); Bilirubin,Total < 0.2 mg/dL (0.3-1.2); Blood Urea Nitrogen 28 mg/dL (9-23); Calcium 8.8 mg/dL (8.3-10.6); Calcium (Corrected) 9.4 mg/dL (8.5-10.1); Carbon Dioxide 15.8 mMol/L (20.0-31.0); Chloride 113 mMol/L (98-107); Creatinine (Component) 2.6 mg/dL (0.6-1.3); Estimated Creatinine Clearance 19.1 mL/min (>60); Globulin 2.5 gm/dL (2.3-3.5); Glucose 169 mg/dL (74-106); Magnesium 2.4 mg/dL (1.6-2.6); Osmolality,Calculated 287 (275-295); Potassium 4.7 mMol/L (3.4-5.1); Sodium 139 mMol/L (136-145); Total Protein 5.8 gm/dL (5.7-8.2); eGFR 20 See Note
[2025-05-21 08:34] LABS: Hepatitis C Antibody Non Reactive (Non React)
[2025-05-21] MEDS: DOXYCYCLINE INJ 100 MG in SODIUM CHLORIDE 0.9% (POP) 100 ML IV ×2 (08:45→20:23)
[2025-05-21] MEDS: PANTOPRAZOLE 40 MG TABLET PO ×2 (08:45→20:23)
[2025-05-21] MEDS: clonazePAM 0.5 MG TABLET 1 MG PO ×2 (08:45→20:23)
[2025-05-21] MEDS: cefTRIAXone/D5w 2gm 2 GM/50 ML BAG IV (10:23)
--- NOTE | 2025-05-21 13:16 | ESPR_ITS ---
Documentation for date of: 05/21/25 Subjective Subjective Interval history: No acute overnight events. Seen and examined at bedside and states that her pain is relatively well-managed on current regimen. Orders placed for records from both [facility] in [place] and [facility] yesterday but no records received as of yet. Given that SWETHA has not improved with IVF in setting of increased urostomy output, nephrology was consulted who had started patient on sodium bicarbonate drip as well as D5 half NS at 125 cc/h. Also started on loperamide given frequent bowel movements in ostomy bag and output from midline lesion. Exam Vital Signs Temp Pulse Resp BP Pulse Ox O2 Del Method 97.4 F 80 19 120/62 96 Room Air 05/21/25 12:20 05/21/25 12:20 05/21/25 12:20 05/21/25 12:20 05/21/25 12:20 05/21/25 12:20 Narrative Exam General: AOx3, no acute distress, able to speak full sentences HEENT: NC/AT, mucous membranes moist, bilateral sclera anicteric Cardiovascular: regular rate and rhythm, S1/S2 present, no murmurs appreciated Pulmonary: clear to auscultation bilaterally, no rales/rhonchi/wheezes Abdominal: left-sided ostomy bag present with another draining lesion noted midline to ostomy bag, soft, non-distended Musculoskeletal: normal ROM, no peripheral edema Skin: midline abdominal scar present, warm and dry, intact, no rashes Neuro: CN II-XII intact, no focal deficits Objective Labs 05/22/25 04:33 05/22/25 04:33 Labs: Laboratory Results - last 24 hr 05/21/25 04:31 WBC 5.6 RBC 3.36 L Hgb 9.3 L Hct 28.0 L MCV 83 MCH 27.7 MCHC 33.2 RDW Std Deviation 48.4 H Plt Count 322 Neut % (Auto) 50 Lymph % (Auto) 37 [place] % (Auto) 11 Eos % (Auto) 2 Baso % (Auto) 0 Neut # (Auto) 2.8 Lymph # (Auto) 2.1 [place] # (Auto) 0.6 Eos # (Auto) 0.1 Baso # (Auto) 0.0 Immature Gran # (Auto) 0.01 H Absolute Nucleated RBC 0.00 Immature Gran % 0 Nucleated RBC % 0 Sodium 139 Potassium 4.7 D Chloride 113 H Carbon Dioxide 15.8 L Anion Gap 10 BUN 28 H Creatinine 2.6 H Estim Creat Clear Calc 19.1 L eGFR 20 L BUN/Creatinine Ratio 11 L Glucose 169 H Calculated Osmolality 287 Calcium 8.8 Corrected Calcium 9.4 Magnesium 2.4 Total Bilirubin < 0.2 L AST 13 ALT 10 Alkaline Phosphatase 158 H Total Protein 5.8 Albumin 3.3 L Globulin 2.5 Albumin/Globulin Ratio 1.3 Hepatitis C Antibody Non Reactive Quality Measures Quality Measures none Advance care planning discussed with:: patient Assessment & Plan Assessment Current Active Medications: Generic Name Dose Route Start Last Admin Trade Name Freq PRN Reason Stop Dose Admin Acetaminophen 650 mg 05/20/25 02:27 Acetaminophen 325 Mg Tablet PO 06/19/25 02:26 Q6H PRN Fever >100.4 Acetaminophen 650 mg 05/20/25 02:27 Acetaminophen 325 Mg Tablet PO 06/19/25 02:26 Q6H PRN PAIN SCALE 1-3 (mild Clonazepam 1 mg 05/20/25 21:00 05/21/25 08:45 Clonazepam 0.5 Mg Tablet PO 05/25/25 20:59 1 mg BID DENISSE Administration Doxycycline Hyclate 100 mg/ 100 mls @ 100 mls/hr 05/20/25 21:00 05/21/25 08:45 Sodium Chloride IV 05/27/25 20:59 100 mls/hr BID DENISSE Administration Ceftriaxone Sodium/Dextrose 2 gm in 50 mls @ 100 mls/hr 05/21/25 09:00 05/21/25 10:23 Rocephin/D5w 2gm IV 05/28/25 08:59 100 mls/hr QDAY DENISSE Administration Sodium Chloride 1,000 mls @ 100 mls/hr 05/20/25 19:18 05/21/25 07:43 Ns IV 05/21/25 19:17 Not Given .Q10H DENISSE Loperamide HCl 2 mg 05/21/25 10:38 Loperamide 2 Mg Capsule PO 05/28/25 10:37 Q6HR PRN DIARRHEA Morphine Sulfate 1 mg 05/20/25 16:20 05/21/25 10:34 Morphine Sulf Inj 10 Mg/Ml Vial IVP 05/25/25 02:26 1 mg Q8H PRN Administration BREAKTHROUGH PAIN Protocol Ondansetron HCl 4 mg 05/20/25 02:27 Ondansetron Inj 2 Mg/Ml Inj 2 Ml IVP 06/19/25 02:26 Q6H PRN NAUSEA OR VOMITING Protocol Oxycodone/Acetaminophen 1 tab 05/20/25 16:19 05/21/25 05:13 Oxycodone/Apap 5/325 Tablet PO 05/25/25 16:18 1 tab Q6HR PRN Administration PAIN SCALE 4-10(Mod-Sev Pantoprazole Sodium 40 mg 05/20/25 21:00 05/21/25 08:45 Pantoprazole 40 Mg Tablet PO 06/19/25 20:59 40 mg BID DENISSE Administration Trazodone HCl 50 mg 05/20/25 21:00 05/20/25 20:27 Trazodone Hcl 50 Mg Tablet PO 06/19/25 20:59 50 mg HS DENISSE Administration Plan Ariadna Albarran is a 64-year-old female with a past medical history of CAD status post stents, PAD status post stents, A-fib not on anticoagulation, hypertension, type 2 diabetes mellitus, esophageal stricture status post dilatation, ischemic colitis complicated by SBO status post bowel resection ileostomy on 02/2025, decubitus ulcer status post debridement at [facility] who is admitted for NAGMA, SWETHA, and increased ileostomy output. #Acute kidney injury, likely prerenal #NAGMA Increased ileostomy output for the last few days with associated abdominal pain, initial creatinine on admission 2.6 (baseline less than 1). CT A/P showed edema in lower mesentery, large defect in posterior pelvis showing sacral and coccyx 0 segments that extend to anus, cortical bone restriction of posterior sacrum bilaterally, periumbilical hernia with bowel but no incarcerated bowel or bowel obstruction. ? Nephrology following, appreciate recommendations ? ABG: pH 7.29, p.o. Bicitra 30 mL twice daily and bicarb drip at 100 cc/hr ? D5 half NS at 125 cc/h ? Avoid nephrotoxic agents when possible, renally dose medications ? Strict I's and O's ? Urine electrolytes ordered, urine anion gap will be calculated #Ischemic colitis complicated by SBO status post bowel resection and ileostomy Per patient, procedure happened on 02/2025 after which she went to her rehab center. Requests were sent to obtain records from both [facility] and touched base with general surgeons in house. At this time will await records, but surgery previously recommended to transfer for higher level of care, specifically to where procedure was done. ? Obtain records from [facility] in [place] ? Possible transfer #Osteomyelitis of sacrum #Decubitus ulcer status post debridement ? Infectious disease following, appreciate recommendations ? Doxycycline 100 mg IV twice daily (05/20-) ? Ceftriaxone 2 g IV daily (05/20-) ? Obtain records from [facility] ? Blood cultures 05/20: Pending ? Wound care #Increased ileostomy output/diarrhea ? Follow-up stool studies ? Follow-up stool culture #CAD s/p #PAD status post stents Not on antiplatelets or statin per med rec #Hypertension Blood pressure within range in house at this time, will hold on antihypertensives but none noted on med rec. #Type 2 diabetes mellitus A1c 5.9% on 02/11/2025. Blood sugar 170, will defer SSI at this time given normal A1c in January. Hospital management: Disposition: IVF for SWETHA and NAGMA, pending records from outside facilities, nephro and ID following Fluids: D5 half NS at 125 cc/h Diet: cardiac Lines: PIV DVT prophylaxis: SC heparin TID GI prophylaxis: pantoprazole CODE STATUS: full code ----- Plan discussed with attending physician Dr. Mitul Hough MD PGY-1 Internal Medicine Attending Provider Attestation/Addendum I have examined the patient, reviewed labs and imaging findings, discussed the case with the resident(s), and reviewed entered orders. I agree with the plan of care as outlined in this note, with these additional summaries/recommendations: Patient seen at bedside. No acute overnight events. Today patient reports her pain is not controlled and we will adjust pain regimen. Patient was diagnosed with ischemic colitis and admitted to [facility] months prior and underwent partial colectomy with ileostomy bag with Dr. Alphonso Hughes. She reports she was discharged to SNF and developed a significant decubitus ulcer and was sent to [facility] in [place] for debridement. Records requested from [facility] and [facility]. At bedside ileostomy bag appears to be functioning well although high output noted and there is a lateral defect to the ileostomy which appears to be an open wound and draining significant serosanguineous fluid. Patient now reports that this developed after placing ileostomy bag because hernan were removed too soon. Records are pending and attempting to reach out to surgeon for further information. Continue wound care. There was concern for presumptive communicating fistula on admission although unable to confirm at this time. Patient reports she is allergic to contrast. Will discuss with in- house IR while awaiting records. Patient also noted to have stage IV coccygeal decubitus ulcer with full-thickness tissue loss with exposed muscle and minimal drainage. CT abdomen revealed osteomyelitis of coccygeal segments and sacrum. Per patient her decubitus ulcer has improved significantly over the last month. Infectious disease consulted, recommendations appreciated. Continue IV antibiotics. Patient is in agreement to proceed with PICC line placement for extended course of IV antibiotics although we discussed I would like to receive the records from [facility] before proceeding. Patient also noted to have acute kidney injury with metabolic acidosis. Order VBG. Etiology prerenal from dehydration versus possible intrinsic component from previous hospitalization. No improvement in renal function with IV fluids and consult neprhology. Continue to monitor urinary output. Continue to hold antihypertensives for soft blood pressure. Patient updated on the plan and in agreement. All questions answered to satisfaction. Please see residents note for additional details and management. Dr. Mitul MD
--- NOTE | 2025-05-21 13:19 | ESCONSULT_ITS ---
HPI Data of Consult Consult date: 05/21/25 Requesting Physician: Srini Bauman MD Admitting Provider: Yvonne Pierson MD Attending Provider: Srini Bauman MD Primary Care Provider: Sun Webb NP Consult Narrative Reason for consult: Acute renal failure History of present illness: Ms. Albarran is a 64-year-old female with a past medical history of bowel ischemia status post resection and ileostomy, coronary artery disease status post stents, peripheral artery disease status post stents, atrial fibrillation, hypertension, diabetes mellitus, presented to the ER due to complaint of high output, including from ileostomy. Patient had recent surgery at [facility] in [place] in February 2025 for ischemic bowel resection ileostomy, patient has had no follow-ups with the surgeon, pending medical records, was established with wound care for wound dehiscence and purulent drainage from site of surgery. Patient developed extensive decubitus ulcer postop. The patient denied any history of kidney problems or stones . Patient reports adequate fluid intake and adequate urine output, states that she goes 3-4 times per day to pee. Complaining of pain in the abdomen, also complaining of chest pain on deep inspiration around the upper abdomen/diaphragm area. Nephrology was consulted for worsening acute kidney injury and non-anion gap metabolic acidosis. Patient presented to the ER, On 05/16/2025 and later 05/19/2025 for blood-tinged output from ileostomy. Surgical consult obtained for wound, recommended no urgent surgical intervention, attempts to transfer the patient to [facility] were unsuccessful. Patient had surgery at [facility]. Patient was admitted to medical floor for pneumonia and SWETHA. Initial labs show, CBC WBC 6.1, hemoglobin 9.9, platelets 3, CHEM panel on 05/21/2025 shows sodium 139 potassium 4.7, chloride 113, bicarb 15.8, anion gap 10, BUN 28, creatinine 2.6, EGFR 20. Urinalysis shows WBC 16 positive leukocyte Estrace. Pending stool studies. CT abdomen pelvis shows edema in lower mesentery, right ileostomy, large defect in posterior pelvis destroying sacral and coccygeal segments, no abscess noted, cortical bone destruction involving posterior sacrum consistent with osteomyelitis. Extensive lumbar fusion L3-S1. cc:: cc: Srini Bauman MD Review of Systems Review of Systems Systems Reviewed: All systems reviewed, normal except as documented Past Medical History Past Medical History NEUROLOGIC: Positive Neurological Disorders, Cerebrovascular Accident and Transient Ischemic Attacks (TIA); Negative Seizures CARDIAC: Positive Cardiac Disorders, Myocardial Infarction, Coronary Artery Disease, Hypercholesterolemia, Congestive Heart Failure and Hypertension RESPIRATORY: Negative Chronic Obstructive Pulmonary Disease (COPD) or Asthma GASTROINTESTINAL: Positive Gastrointestinal Disorders, Colitis, Diverticulitis, Diverticulosis and Gastroesophageal Reflux Disease; Negative Gastrointestinal Bleed, Hiatal Hernia or Hemorrhoids GENITOURINARY: Negative Genitourinary Disorders or Renal Disease REPRODUCTIVE: Positive Previous Pregnancies MUSCULOSKELETAL: Positive Musculoskeletal Disorders, Arthritis and Carpal Tunnel Syndrome ENDOCRINE: Positive Endocrine Disorders, Diabetes Mellitus Type 2 and Hyperthyroidism; Negative Diabetes Mellitus Type 1 or Hypothyroidism HEMATOLOGIC: Negative Blood Disorders or Sickle Cell Disease PSYCHO/SOCIAL: Positive Anxiety; Negative Depression OTHER HISTORY: Positive Falls and Chicken Pox; Negative Blood Transfusions, Blood Transfusion Reaction, Anesthesia Reactions or Cancer Family History FAMILY HISTORY: Positive Family Cancer Surgical History SURGICAL: Positive Cardiac Surgery, Coronary Stent, Tonsillectomy, Tubal Ligation and Section Social History SMOKING STATUS: Never smoker SECOND HAND EXPOSURE: Yes SUBSTANCE USE: does not use Exam Vital Signs Temp Pulse Resp BP Pulse Ox O2 Del Method 97.4 F 80 19 120/62 96 Room Air 05/21/25 12:20 05/21/25 12:20 05/21/25 12:20 05/21/25 12:20 05/21/25 12:20 05/21/25 12:20 Narrative Exam General: AOx3, in acute distress due to pain. Skin: Intact, no cyanosis or edema noted. HEENT: Atraumatic/normocephalic, JUJU, neck supple Heart: Irregular, no murmurs appreciated Lungs: No rhonchi or crackles auscultated, Abdomen: Noted laparotomy scar midline, right ileostomy, surgical dressing on wound defect present on lower extent of laparotomy scar and adjacent to ileostomy. Mild to moderate tenderness on palpation. Vascular: Peripheral pulses palpable Neuro: No focal neurological deficits noted. Results Labs 05/21/25 04:31 05/21/25 04:31 Labs: Short CBC 05/21/25 Range/Units 04:31 WBC 5.6 (3.6-11.0) Thou/mm3 Hgb 9.3 L (12.0-16.0) g/dL Hct 28.0 L (36.0-46.0) % Plt Count 322 (140-440) Thou/mm3 BMP 05/21/25 04:31 Sodium 139 Potassium 4.7 D Chloride 113 H Carbon Dioxide 15.8 L BUN 28 H Creatinine 2.6 H Glucose 169 H Calcium 8.8 Liver Function 05/21/25 Range/Units 04:31 Total Bilirubin < 0.2 L (0.3-1.2) mg/dL AST 13 (0-34) U/L ALT 10 (10-49) U/L Alkaline Phosphatase 158 H (46-116) U/L Albumin 3.3 L (3.4-4.8) gm/dL Quality Measures Quality Measures none Advance care planning discussed with:: patient Medications Home Medications and Allergies Home Medications ?Medication ?Instructions ?Recorded ?Confirmed ?Type gabapentin 300 mg capsule 300 mg PO BID 10/19/2405/20 History clonazepam 1 mg tablet 1 mg PO BID 01/29/25 5 History Allergies Allergy/AdvReac Type Severity Reaction Status Date / Time codeine Allergy Severe HIVES Verified 02/18/25 07:34 hydrocodone Allergy Severe RASH AND Verified 02/18/25 07:34 SWELLING Iodinated Contrast Media Allergy Severe Hives Verified 02/18/25 07:34 Visit Medications Acetaminophen (Acetaminophen 325 Mg Tablet) 650 mg PO Q6H PRN PRN Reason: Fever >100.4 Stop: 06/19/25 02:26 Acetaminophen (Acetaminophen 325 Mg Tablet) 650 mg PO Q6H PRN PRN Reason: PAIN SCALE 1-3 (mild Stop: 06/19/25 02:26 Clonazepam (Clonazepam 0.5 Mg Tablet) 1 mg PO BID DENISSE Stop: 05/25/25 20:59 Last Admin: 05/21/25 08:45 Dose: 1 mg Doxycycline Hyclate 100 mg/ (Sodium Chloride) 100 mls @ 100 mls/hr IV BID DENISSE Stop: 05/27/25 20:59 Last Admin: 05/21/25 08:45 Dose: 100 mls/hr Ceftriaxone Sodium/Dextrose (Rocephin/D5w 2gm) 2 gm in 50 mls @ 100 mls/hr IV QDAY [facility] Stop: 05/28/25 08:59 Last Admin: 05/21/25 10:23 Dose: 100 mls/hr Sodium Chloride (Ns) 1,000 mls @ 100 mls/hr IV .Q10H DENISSE Stop: 05/21/25 19:17 Last Admin: 05/21/25 07:43 Dose: Not Given Loperamide HCl (Loperamide 2 Mg Capsule) 2 mg PO Q6HR PRN PRN Reason: DIARRHEA Stop: 05/28/25 10:37 Morphine Sulfate (Morphine Sulf Inj 10 Mg/Ml Vial) 1 mg IVP Q8H PRN; Protocol PRN Reason: BREAKTHROUGH PAIN Stop: 05/25/25 02:26 Last Admin: 05/21/25 10:34 Dose: 1 mg Ondansetron HCl (Ondansetron Inj 2 Mg/Ml Inj 2 Ml) 4 mg IVP Q6H PRN; Protocol PRN Reason: NAUSEA OR VOMITING Stop: 06/19/25 02:26 Oxycodone/Acetaminophen (Oxycodone/Apap 5/325 Tablet) 1 tab PO Q6HR PRN PRN Reason: PAIN SCALE 4-10(Mod-Sev Stop: 05/25/25 16:18 Last Admin: 05/21/25 05:13 Dose: 1 tab Pantoprazole Sodium (Pantoprazole 40 Mg Tablet) 40 mg PO BID DENISSE Stop: 06/19/25 20:59 Last Admin: 05/21/25 08:45 Dose: 40 mg Trazodone HCl (Trazodone Hcl 50 Mg Tablet) 50 mg PO HS DENISSE Stop: 06/19/25 20:59 Last Admin: 05/20/25 20:27 Dose: 50 mg Discontinued Medications Hydrocodone Bitart/Acetaminophen (Hydrocodone/Apap 5/325 Tablet) 1 tab PO Q4HR PRN PRN Reason: PAIN SCALE 4-6 (Moderate Stop: 05/25/25 02:26 Heparin Sodium (Porcine) (Heparin Sod Inj 5000 Unit/Ml Vial) 5,000 unit SC Q8HR DENISSE Stop: 06/03/25 05:59 Sodium Chloride (Ns) 1,000 mls @ 999 mls/hr IV .Q1H1M ONE Stop: 05/19/25 17:45 Last Infusion: 05/19/25 18:39 Dose: Infused Sodium Chloride (Ns) 1,000 mls @ 100 mls/hr IV .Q10H ONE Stop: 05/20/25 02:44 Last Admin: 05/19/25 18:01 Dose: Not Given Vancomycin HCl 1,000 mg/ (Sodium Chloride) 250 mls @ 150 mls/hr IV X1 ONE Stop: 05/20/25 00:08 Last Admin: 05/20/25 01:59 Dose: 150 mls/hr Piperacillin/Tazobactam/Dextrose (Zosyn) 2.25 gm in 50 mls @ 100 mls/hr IV X1 ONE Stop: 05/19/25 22:59 Last Infusion: 05/20/25 01:56 Dose: Infused Sodium Chloride (Ns) 1,000 mls @ 999 mls/hr IV .Q1H1M ONE Stop: 05/20/25 02:14 Last Admin: 05/20/25 01:25 Dose: 999 mls/hr Sodium Chloride (Ns) 1,000 mls @ 75 mls/hr IV .[id number] DENISSE Stop: 05/20/25 15:49 Last Admin: 05/20/25 03:38 Dose: Not Given Piperacillin/Tazobactam/Dextrose (Zosyn) 3.375 gm in 50 mls @ 100 mls/hr IV Q12HR [facility]; Protocol Stop: 05/27/25 08:59 Last Admin: 05/20/25 08:05 Dose: 100 mls/hr Sodium Chloride (Ns) 500 mls @ 999 mls/hr IV .Q31M ONE Stop: 05/20/25 04:02 Last Infusion: 05/20/25 04:22 Dose: Infused Sodium Chloride (Ns) 1,000 mls @ 100 mls/hr IV .Q10H [facility] Stop: 05/20/25 13:31 Last Admin: 05/20/25 03:38 Dose: 100 mls/hr Magnesium Sulfate (Magnesium Sulfate Ivpb) 2 gm in 50 mls @ 25 mls/hr IV X1 ONE Stop: 05/20/25 10:59 Magnesium Sulfate/Dextrose (Magnesium Sulfate Ivpb) 1 gm in 100 mls @ 100 mls/hr IV X1 ONE Stop: 05/20/25 08:33 Last Admin: 05/20/25 07:37 Dose: Not Given Magnesium Sulfate (Magnesium Sulfate Ivpb) 4 gm in 50 mls @ 12.5 mls/hr IV X1 ONE Stop: 05/20/25 11:35 Last Admin: 05/20/25 08:04 Dose: 12.5 mls/hr Ceftriaxone Sodium 2 gm/ (Sodium Chloride) 50 mls @ 100 mls/hr IV QDAY DENISSE Stop: 05/27/25 15:12 Last Admin: 05/20/25 16:23 Dose: Not Given Morphine Sulfate (Morphine Sulf Inj 10 Mg/Ml Vial) 4 mg IVP X1 ONE Stop: 05/19/25 17:20 Last Admin: 05/19/25 17:34 Dose: 4 mg Morphine Sulfate (Morphine Sulf Inj 10 Mg/Ml Vial) 5 mg IVP X1 ONE Stop: 05/19/25 20:33 Last Admin: 05/19/25 20:51 Dose: 5 mg Morphine Sulfate (Morphine Sulf Inj 10 Mg/Ml Vial) 1 mg IVP Q2H PRN PRN Reason: PAIN SCALE 7-10 (Severe Stop: 05/25/25 02:26 Last Admin: 05/20/25 14:53 Dose: 1 mg Ondansetron HCl (Ondansetron Inj 2 Mg/Ml Inj 2 Ml) 4 mg IVP X1 ONE; Protocol Stop: 05/19/25 17:20 Last Admin: 05/19/25 17:31 Dose: 4 mg Ondansetron HCl (Ondansetron Inj 2 Mg/Ml Inj 2 Ml) 4 mg IVP X1 ONE Stop: 05/19/25 20:33 Last Admin: 05/19/25 20:50 Dose: 4 mg Assessment & Plan Problem List (1) SWETHA (acute kidney injury): Status: Acute Assessment and plan: Acute kidney injury, prerenal versus intrinsic renal injury, patient reports drinking adequate fluids, BUN/creatinine ratio < 20, no improvement in renal function despite IV fluids NS at 100 cc/h. Lactic acid within normal range, but does have overwhelming infectious burden with wound dehiscence and osteomyelitis. Right and left kidney size 12 cm, minimal right hydronephrosis, no stones reported. Moderate bilateral renal parenchymal scar formation. Numerous bilateral subcentimeter renal calculi were reported on CT scan. SWETHA with non-anion gap metabolic acidosis, likely GI losses in the setting of high output ileostomy. Patient might require supplemental bicarb to compensate for alkali losses. Patient was prescribed ciprofloxacin on outpatient basis by wound care. Creatinine 1.5 on 05/16, now stable at 2.6, EGFR 20, no improvement noted after IV NS. Urine output 1000 mL, ileostomy output 1350 mL. ? Ordered ABG?pH 7.29, p.o. Bicitra added 30 mL twice daily ? D5 half NS at 125 cc/h ? Strict intake and output monitoring ? Renal dosing of antibiotics ? Avoid nephrotoxic drugs (2) Metabolic acidosis: Status: Acute Assessment and plan: SWETHA with non-anion gap metabolic acidosis, likely in the setting of high output ileostomy. Patient might require supplemental bicarb to compensate for alkali losses. ? Ordered ABG?pH 7.29, p.o. Bicitra added 30 mL twice daily ? D5 half NS at 125 cc/h ? Strict intake and output monitoring ? Urine electrolytes ordered, urine anion gap will be calculated. (3) Postoperative wound dehiscence: Status: Acute Assessment and plan: Patient does not meet criteria for sepsis, does have postop wound dehiscence with purulent discharge, wound care following, failure to improve after outpatient antibiotic ciprofloxacin. Patient reported that she never followed up at [facility] after surgery. Infectious disease following, currently on ceftriaxone and doxycycline ? Management per primary team (4) Ileostomy present: Status: Acute Assessment and plan: Right-sided ileostomy, ileostomy output recorded at 1350 mL overnight, but patient did have diarrhea and blood-tinged discharge in the urostomy bag prior to presentation. Likely causing RTA type II due to persistent bicarb losses. ? Management per primary team (5) Decubital ulcer: Status: Acute Assessment and plan: Decubitus ulcer versus osteomyelitis. Patient reported she was taking excessive amount of opioids for pain control, leading to constipation and immobility, leading to decubitus ulcers. Now has extensive cortical bone destruction, elevated ESR. Infectious disease specialist Dr Rizzo is following the patient. On ceftriaxone and doxycycline. ? Management per primary team (6) Ischemic colitis: Status: Acute Assessment and plan: History of atrial fibrillation, leading to ischemic colitis, patient is not on any anticoagulation at the moment. Patient has stopped anticoagulation after surgery, patient is followed by sintering plant supervisor Dr. Ayala. ?Management per primary team and cardiology. (7) Atrial fibrillation: Status: Acute Assessment and plan: History of atrial fibrillation, leading to ischemic colitis, patient is not on any anticoagulation at the moment. Patient has stopped anticoagulation after surgery, patient is followed by sintering plant supervisor Dr. Ayala. ?Management per primary team and cardiology. Plan Plan of care discussed with attending Dr. Henrique Sr PGY2 Attending Provider Attestation/Addendum Patient seen and examined with resident physician Dr. Sr. Note reviewed, agree with findings and recommendations. Renal consultation requested for acute renal failure in the setting of high output ileostomy losses. Agree with IV fluids and Bicitra. Strict I&O's ordered. Thank you Srini for allowing me to participate in the care of Ms. Rosenthal
--- NOTE | 2025-05-21 13:35 | XR_ITS ---
Examination: Retroperitoneal ultrasound, complete Technique: Multiple high resolution grayscale images of the retroperitoneum obtained, including kidneys and bladder. Exam date and time:May 21, 2025, 1432 hours INDICATIONS: Unknown renal size abdominal pain since yesterday FINDINGS: Right kidney 12.3 cm cortex 1.7 cm Minimal hydronephrosis Left kidney 12.0 cm cortex 2.6 cm Moderate bilateral renal parenchymal scar formation No bladder mass or bladder calculi Bladder prevoid volume 126 cc IMPRESSION: Minimal right hydronephrosis Moderate bilateral renal parenchymal scar formation
[2025-05-21] MEDS: Sodium Bicarb 8.4% 50ml Vial* 88.23 MEQ in DEXTROSE 5%-WATER 500 ML 100 MEQ IV (14:19)
[2025-05-21 14:36] LABS: Base Excess -9 (-3-3); HCO3 17 mEq/L (20-26); Inspired Oxygen, FIO2 21 %; O2 Saturation 99 % (91-98); PCO2 35 mmHg (32.0-48.0); PO2 95 mmHg (83-108); pH, Arterial 7.29 (7.35-7.45)
[2025-05-21 14:37] LABS: Allen Test Not Performed; Puncture Site Right Radial
--- NOTE | 2025-05-21 15:33 | PC.CM ---
Patient is [facility] to [facility]. She will need orders is she returns home on discharge.
[2025-05-21] MEDS: CITRIC ACID/SODIUM CITR 15 ML UDC (BICITRA) 30 ML PO (15:52)
[2025-05-21 16:07] LABS: Base Excess, Venous -8 (-3-3); O2 Saturation, Venous 100 % (96-97); PCO2, Venous 42 mmHg (36-56); PO2, Venous 135 mmHg (15-58); pH, Venous 7.25 (7.33-7.66)
[2025-05-21] MEDS: DEXTROSE 5%-0.45% NS 1,000 ML 125 ML IV (16:40)
[2025-05-21] MEDS: traZODone HCL 50 MG TABLET PO (20:23)
[2025-05-22] VITALS (8 sets, daily range): BP systolic 112–137; BP diastolic 54–74; PULSE 82–92; RESP 15–96; TEMP 36–36.9; O2SAT 92–97
[2025-05-22] MEDS: oxyCODONE/APAP 5/325 TABLET 1 TAB PO ×6 (00:24→23:57)
[2025-05-22] MEDS: MORPHINE SULF INJ 10 MG/ML VIAL IVP ×4 (01:16→20:51)
[2025-05-22] MEDS: DEXTROSE 5%-0.45% NS 1,000 ML 125 ML IV ×2 (03:24→15:01)
[2025-05-22 05:15] LABS: Basophils % (Auto) 0 % (0-2.5); Eosinophils # (Auto) 0.1 Thou/mm3 (0.0-0.5); Eosinophils % (Auto) 2 % (0-10); Hematocrit 26.5 % (36.0-46.0); Hemoglobin 8.9 g/dL (12.0-16.0); Immature Granulocytes % (Auto) 0 % (0-0); Lymphocytes # (Auto) 1.9 Thou/mm3 (1.0-4.8); Lymphocytes % (Auto) 34 % (10-50); Mean Corpuscular HGB Conc 33.6 g/dl (31.0-37.0); Mean Corpuscular Hemoglobin 27.6 pg (25.0-35.0); Mean Corpuscular Volume 82 fL (80-100); Monocytes # (Auto) 0.6 Thou/mm3 (0.0-0.8); Monocytes % (Auto) 11 % (0-12); Neutrophils % (Auto) 53 % (37-80); Nucleated Red Blood Cell % 0 /100 WBC (0); Platelet Count 323 Thou/mm3 (140-440); RDW Standard Deviation 47.9 fL (36.4-46.3); Red Blood Count 3.23 Miln/mm3 (4.00-5.20); White Blood Count 5.6 Thou/mm3 (3.6-11.0)
[2025-05-22 05:43] LABS: Alanine Aminotransferase 8 U/L (10-49); Albumin, Serum 3.4 gm/dL (3.4-4.8); Albumin/Globulin Ratio 1.5 (1.2-2.2); Alkaline Phosphatase 141 U/L (46-116); Anion Gap 11 (7-16); Aspartate Amino Transferase < 10 U/L (0-34); BUN/Creatinine Ratio 12 Ratio (12-20); Bilirubin,Total < 0.2 mg/dL (0.3-1.2); Blood Urea Nitrogen 30 mg/dL (9-23); Calcium 8.7 mg/dL (8.3-10.6); Calcium (Corrected) 9.2 mg/dL (8.5-10.1); Carbon Dioxide 20.5 mMol/L (20.0-31.0); Chloride 109 mMol/L (98-107); Creatinine (Component) 2.5 mg/dL (0.6-1.3); Estimated Creatinine Clearance 19.4 mL/min (>60); Globulin 2.3 gm/dL (2.3-3.5); Glucose 176 mg/dL (74-106); Magnesium 1.8 mg/dL (1.6-2.6); Osmolality,Calculated 289 (275-295); Sodium 140 mMol/L (136-145); Total Protein 5.7 gm/dL (5.7-8.2); eGFR 21 See Note
--- NOTE | 2025-05-22 07:53 | ESPR_ITS ---
Documentation for date of: 05/22/25 Subjective Subjective Interval history: Ms. Albarran is a 64-year-old female with a past medical history of bowel ischemia status post resection and ileostomy, coronary artery disease status post stents, peripheral artery disease status post stents, atrial fibrillation, hypertension, diabetes mellitus, presented to the ER due to complaint of high output, including from ileostomy. Patient had recent surgery at [facility] in [place] in February 2025 for ischemic bowel resection ileostomy, patient has had no follow-ups with the surgeon, pending medical records, was established with wound care for wound dehiscence and purulent drainage from site of surgery. Patient developed extensive decubitus ulcer postop. The patient denied any history of kidney problems or stones . Patient reports adequate fluid intake and adequate urine output, states that she goes 3-4 times per day to pee. Complaining of pain in the abdomen, also complaining of chest pain on deep inspiration around the upper abdomen/diaphragm area. Nephrology was consulted for worsening acute kidney injury and non-anion gap metabolic acidosis. Patient presented to the ER, On 05/16/2025 and later 05/19/2025 for blood-tinged output from ileostomy. Surgical consult obtained for wound, recommended no urgent surgical intervention, attempts to transfer the patient to [facility] were unsuccessful. Patient had surgery at [facility]. Patient was admitted to medical floor for pneumonia and SWETHA. Initial labs show, CBC WBC 6.1, hemoglobin 9.9, platelets 3, CHEM panel on 05/21/2025 shows sodium 139 potassium 4.7, chloride 113, bicarb 15.8, anion gap 10, BUN 28, creatinine 2.6, EGFR 20. Urinalysis shows WBC 16 positive leukocyte Estrace. Pending stool studies. CT abdomen pelvis shows edema in lower mesentery, right ileostomy, large defect in posterior pelvis destroying sacral and coccygeal segments, no abscess noted, cortical bone destruction involving posterior sacrum consistent with osteomyelitis. Extensive lumbar fusion L3-S1. 05/22/2025 patient evaluated at the bedside, complaining of abdominal discomfort, abdomen tender to palpation. Patient reported drinking adequate fluids, currently on maintenance IV fluids. Patient reported going up to the restroom and making urine, the documented urine output only 200 mL, ileostomy output documented 600 mL. Recommend strict intake and output documentation, slight improvement in creatinine, BUN 30 creatinine 2.5, EGFR 21 renal ultrasound showed mild right hydronephrosis. Will add Bicitra, no need for hemodialysis at this point., Please consult covering steamfitter supervisor Dr. Li if needed. Labs show: Sodium 140 potassium 4.0, BUN 30, creatinine 2.5, bicarb 20.5 Exam Vital Signs Temp Pulse Resp BP Pulse Ox O2 Del Method 98.2 F 84 20 120/74 92 L Room Air 05/22/25 04:00 05/22/25 04:00 05/22/25 04:00 05/22/25 04:00 05/22/25 04:00 05/22/25 04:00 Narrative Exam General: AOx3, in acute distress due to pain. Skin: Intact, no cyanosis or edema noted. HEENT: Atraumatic/normocephalic, JUJU, neck supple Heart: Irregular, no murmurs appreciated Lungs: No rhonchi or crackles auscultated, Abdomen: Noted laparotomy scar midline, right ileostomy, surgical dressing on wound defect present on lower extent of laparotomy scar and adjacent to ileostomy. Mild to moderate tenderness on palpation. Vascular: Peripheral pulses palpable Neuro: No focal neurological deficits noted. Objective Labs 05/23/25 05:21 05/23/25 05:21 Labs: Laboratory Results - last 24 hr 05/21/25 05/21/25 05/21/25 04:31 14:28 15:19 WBC RBC Hgb Hct MCV MCH MCHC RDW Std Deviation Plt Count Neut % (Auto) Lymph % (Auto) Bremer % (Auto) Eos % (Auto) Baso % (Auto) Neut # (Auto) Lymph # (Auto) Bremer # (Auto) Eos # (Auto) Baso # (Auto) Immature Gran # (Auto) Absolute Nucleated RBC Immature Gran % Nucleated RBC % Puncture Site Right Radial ABG pH 7.29 L ABG pCO2 35 ABG pO2 95 ABG HCO3 17 L ABG O2 Saturation 99 H ABG Base Excess -9 L VBG pH 7.25 L VBG pCO2 42 VBG pO2 135 H VBG O2 Sat (Cece) 100 H VBG Base Excess -8 L FiO2 21 Sodium Potassium Chloride Carbon Dioxide Anion Gap BUN Creatinine Estim Creat Clear Calc eGFR BUN/Creatinine Ratio Glucose Calculated Osmolality Calcium Corrected Calcium Magnesium Total Bilirubin AST ALT Alkaline Phosphatase Total Protein Albumin Globulin Albumin/Globulin Ratio Hepatitis C Antibody Non Reactive 05/22/25 04:33 WBC 5.6 RBC 3.23 L Hgb 8.9 L Hct 26.5 L MCV 82 MCH 27.6 MCHC 33.6 RDW Std Deviation 47.9 H Plt Count 323 Neut % (Auto) 53 Lymph % (Auto) 34 Bremer % (Auto) 11 Eos % (Auto) 2 Baso % (Auto) 0 Neut # (Auto) 3.0 Lymph # (Auto) 1.9 Bremer # (Auto) 0.6 Eos # (Auto) 0.1 Baso # (Auto) 0.0 Immature Gran # (Auto) 0.00 Absolute Nucleated RBC 0.00 Immature Gran % 0 Nucleated RBC % 0 Puncture Site ABG pH ABG pCO2 ABG pO2 ABG HCO3 ABG O2 Saturation ABG Base Excess VBG pH VBG pCO2 VBG pO2 VBG O2 Sat (Cece) VBG Base Excess FiO2 Sodium 140 Potassium 4.0 D Chloride 109 H Carbon Dioxide 20.5 Anion Gap 11 BUN 30 H Creatinine 2.5 H Estim Creat Clear Calc 19.4 L eGFR 21 L BUN/Creatinine Ratio 12 Glucose 176 H Calculated Osmolality 289 Calcium 8.7 Corrected Calcium 9.2 Magnesium 1.8 Total Bilirubin < 0.2 L AST < 10 ALT 8 L Alkaline Phosphatase 141 H Total Protein 5.7 Albumin 3.4 Globulin 2.3 Albumin/Globulin Ratio 1.5 Hepatitis C Antibody ABG Interpretation ABG results: 05/21/25 05/21/25 14:28 15:19 ABG pH 7.29 L ABG pCO2 35 ABG pO2 95 ABG HCO3 17 L ABG O2 Saturation 99 H ABG Base Excess -9 L VBG pH 7.25 L VBG pCO2 42 VBG pO2 135 H VBG Base Excess -8 L Quality Measures Quality Measures none Advance care planning discussed with:: patient Assessment & Plan Assessment Current Active Medications: Generic Name Dose Route Start Last Admin Trade Name Freq PRN Reason Stop Dose Admin Acetaminophen 650 mg 05/20/25 02:27 Acetaminophen 325 Mg Tablet PO 06/19/25 02:26 Q6H PRN Fever >100.4 Acetaminophen 650 mg 05/20/25 02:27 Acetaminophen 325 Mg Tablet PO 06/19/25 02:26 Q6H PRN PAIN SCALE 1-3 (mild Citric Acid/Sodium Citrate 30 ml 05/21/25 15:00 05/21/25 21:34 Citric Acid/Sodium Citr 15 Ml Udc (Bicitra) PO 06/20/25 14:59 Not Given BID DENISSE Clonazepam 1 mg 05/20/25 21:00 05/21/25 20:23 Clonazepam 0.5 Mg Tablet PO 05/25/25 20:59 1 mg BID DENISSE Administration Doxycycline Hyclate 100 mg/ 100 mls @ 100 mls/hr 05/20/25 21:00 05/21/25 20:23 Sodium Chloride IV 05/27/25 20:59 100 mls/hr BID DENISSE Administration Ceftriaxone Sodium/Dextrose 2 gm in 50 mls @ 100 mls/hr 05/21/25 09:00 05/21/25 10:23 Rocephin/D5w 2gm IV 05/28/25 08:59 100 mls/hr QDAY DENISSE Administration Dextrose/Sodium Chloride 1,000 mls @ 125 mls/hr 05/21/25 15:00 05/22/25 03:24 D5-1/2ns IV 06/20/25 14:59 125 mls/hr .Q8H DENISSE Administration Loperamide HCl 2 mg 05/21/25 10:38 Loperamide 2 Mg Capsule PO 05/28/25 10:37 Q6HR PRN DIARRHEA Morphine Sulfate 1 mg 05/21/25 20:58 05/22/25 07:18 Morphine Sulf Inj 10 Mg/Ml Vial IVP 05/25/25 16:19 1 mg Q6H PRN Administration BREAKTHROUGH PAIN Protocol Ondansetron HCl 4 mg 05/20/25 02:27 Ondansetron Inj 2 Mg/Ml Inj 2 Ml IVP 06/19/25 02:26 Q6H PRN NAUSEA OR VOMITING Protocol Oxycodone/Acetaminophen 1 tab 05/21/25 20:59 05/22/25 06:20 Oxycodone/Apap 5/325 Tablet PO 05/25/25 16:18 1 tab Q4H PRN Administration PAIN SCALE 4-10(Mod-Sev Pantoprazole Sodium 40 mg 05/20/25 21:00 05/21/25 20:23 Pantoprazole 40 Mg Tablet PO 06/19/25 20:59 40 mg BID DENISSE Administration Trazodone HCl 50 mg 05/20/25 21:00 05/21/25 20:23 Trazodone Hcl 50 Mg Tablet PO 06/19/25 20:59 50 mg HS DENISSE Administration Plan (1) SWETHA (acute kidney injury): Status: Acute Assessment and plan: Acute kidney injury, prerenal versus intrinsic renal injury, patient reports drinking adequate fluids, BUN/creatinine ratio < 20, no improvement in renal function despite IV fluids NS at 100 cc/h. Lactic acid within normal range, but does have overwhelming infectious burden with wound dehiscence and osteomyelitis. Right and left kidney size 12 cm, minimal right hydronephrosis, no stones reported. Moderate bilateral renal parenchymal scar formation. Numerous bilateral subcentimeter renal calculi were reported on CT scan. SWETHA with non-anion gap metabolic acidosis, likely GI losses in the setting of high output ileostomy. Patient might require supplemental bicarb to compensate for alkali losses. Patient was prescribed ciprofloxacin on outpatient basis by wound care. Creatinine 1.5 on 05/16, now stable at 2.6, EGFR 20, no improvement noted after IV NS. Urine output 1000 mL, ileostomy output 1350 mL. ? Ordered ABG?pH 7.29, p.o. Bicitra added 30 mL twice daily ? D5 half NS at 125 cc/h ? Strict intake and output monitoring ? Renal dosing of antibiotics ? Avoid nephrotoxic drugs (2) Metabolic acidosis: Status: Acute Assessment and plan: SWETHA with non-anion gap metabolic acidosis, likely in the setting of high output ileostomy. Patient might require supplemental bicarb to compensate for alkali losses. ? Ordered ABG?pH 7.29, p.o. Bicitra added 30 mL twice daily ? D5 half NS at 125 cc/h ? Strict intake and output monitoring ? Urine electrolytes ordered, urine anion gap will be calculated. (3) Postoperative wound dehiscence: Status: Acute Assessment and plan: Patient does not meet criteria for sepsis, does have postop wound dehiscence with purulent discharge, wound care following, failure to improve after outpatient antibiotic ciprofloxacin. Patient reported that she never followed up at [facility] after surgery. Infectious disease following, currently on ceftriaxone and doxycycline ? Management per primary team (4) Ileostomy present: Status: Acute Assessment and plan: Right-sided ileostomy, ileostomy output recorded at 1350 mL overnight, but patient did have diarrhea and blood-tinged discharge in the urostomy bag prior to presentation. Likely causing RTA type II due to persistent bicarb losses. ? Management per primary team (5) Decubital ulcer: Status: Acute Assessment and plan: Decubitus ulcer versus osteomyelitis. Patient reported she was taking excessive amount of opioids for pain control, leading to constipation and immobility, leading to decubitus ulcers. Now has extensive cortical bone destruction, elevated ESR. Infectious disease specialist Dr Rizzo is following the patient. On ceftriaxone and doxycycline. ? Management per primary team (6) Ischemic colitis: Status: Acute Assessment and plan: History of atrial fibrillation, leading to ischemic colitis, patient is not on any anticoagulation at the moment. Patient has stopped anticoagulation after surgery, patient is followed by acrobatic dancer Dr. Ayala. ?Management per primary team and cardiology. (7) Atrial fibrillation: Status: Acute Assessment and plan: History of atrial fibrillation, leading to ischemic colitis, patient is not on any anticoagulation at the moment. Patient has stopped anticoagulation after surgery, patient is followed by acrobatic dancer Dr. Ayala. ?Management per primary team and cardiology. Plan Plan of care discussed with attending Dr. Henrique Sr PGY2 Attending Provider Attestation/Addendum Patient seen and examined with resident physician Dr. Sr. Note reviewed, agree with findings and recommendations with the few changes made. Cr stable
[2025-05-22] MEDS: cefTRIAXone/D5w 2gm 2 GM/50 ML BAG IV (09:10)
[2025-05-22] MEDS: PANTOPRAZOLE 40 MG TABLET PO ×2 (09:10→20:54)
[2025-05-22] MEDS: CITRIC ACID/SODIUM CITR 15 ML UDC (BICITRA) 30 ML PO (09:10)
[2025-05-22] MEDS: clonazePAM 0.5 MG TABLET 1 MG PO ×2 (09:10→20:54)
--- NOTE | 2025-05-22 09:11 | PD.IDPROG ---
Subjective Subjective Interval history: creat. hovering at 2.5-2.6. no more mention of fistula from primary team. seems they feel the abx will cure the wound. abx only kill germs, wound healing has to occur on its own or by avoiding pressure if it is a pressure sore if ther is foreign material present, it may also need to be removed as part of rx. Exam Vital Signs Temp Pulse Resp BP Pulse Ox O2 Del Method 98.2 F 85 15 112/54 L 95 Room Air 05/22/25 08:00 05/22/25 08:00 05/22/25 08:00 05/22/25 08:00 05/22/25 08:00 05/22/25 04:00 Narrative Exam she states she does not yet feel better and that her spouse brought some records from [facility] for review. she has no recollection of the culture on sun and dose not known where it was from either PE static otherwise. She has not been to [facility] for f/u and did not even know the doctor's name until recently. abd benign. du will take months to close if at all Objective - Internal Medicine Labs 05/22/25 04:33 05/22/25 04:33 Labs: Laboratory Results - last 24 hr 05/21/25 05/21/25 05/22/25 14:28 15:19 04:33 WBC 5.6 RBC 3.23 L Hgb 8.9 L Hct 26.5 L MCV 82 MCH 27.6 MCHC 33.6 RDW Std Deviation 47.9 H Plt Count 323 Neut % (Auto) 53 Lymph % (Auto) 34 [place]ades % (Auto) 11 Eos % (Auto) 2 Baso % (Auto) 0 Neut # (Auto) 3.0 Lymph # (Auto) 1.9 Glades # (Auto) 0.6 Eos # (Auto) 0.1 Baso # (Auto) 0.0 Immature Gran # (Auto) 0.00 Absolute Nucleated RBC 0.00 Immature Gran % 0 Nucleated RBC % 0 Puncture Site Right Radial ABG pH 7.29 L ABG pCO2 35 ABG pO2 95 ABG HCO3 17 L ABG O2 Saturation 99 H ABG Base Excess -9 L VBG pH 7.25 L VBG pCO2 42 VBG pO2 135 H VBG O2 Sat (Cece) 100 H VBG Base Excess -8 L FiO2 21 Sodium 140 Potassium 4.0 D Chloride 109 H Carbon Dioxide 20.5 Anion Gap 11 BUN 30 H Creatinine 2.5 H Estim Creat Clear Calc 19.4 L eGFR 21 L BUN/Creatinine Ratio 12 Glucose 176 H Calculated Osmolality 289 Calcium 8.7 Corrected Calcium 9.2 Magnesium 1.8 Total Bilirubin < 0.2 L AST < 10 ALT 8 L Alkaline Phosphatase 141 H Total Protein 5.7 Albumin 3.4 Globulin 2.3 Albumin/Globulin Ratio 1.5 ABG Interpretation ABG results: 05/21/25 05/21/25 14:28 15:19 ABG pH 7.29 L ABG pCO2 35 ABG pO2 95 ABG HCO3 17 L ABG O2 Saturation 99 H ABG Base Excess -9 L VBG pH 7.25 L VBG pCO2 42 VBG pO2 135 H VBG Base Excess -8 L Assessment & Plan A&P Narrative presumptive osteo of sacrum, du known to pt wt loss dm II. on metformin as outpt htn hld claire 2 role of abx in doubt to me. abx will not heal a fistula or du. du's improve with avoidance of pressure. if you think there is a fistula then you can look at use of sitally infused non iodinated contrast (she is allergic to iodinated contrast) and see if it goes into the supposed fistula osteo can be treated but no mention of osteo in ct report bloody drainage in ileostomy bag likely a larger concern. one worries that she has [place] at her age with both parents from [place] in their 50's if lower gi bleeding not infectious. then osh may have more impact for her If you really want her on rx, suggest non nephrotoxic regimen of po doxy 100 bid and iv rocephin 2 gm /day for 6 weeks, but some eval for fistula not done and note that sacral destruction is new on report from early march, about 6-7 weeks ago. it is not clear where the cx from 05/20 came from in the data or from the pt. note that gram stain neg and lots of epi's on stain but it grew kleb. if you wish to treat, please just be sure that f/u is with team in [facility] and her primary and arrange weekly cbc, renal panel, esr on iv rx and remove line at end of rx. anemia can be seen in a variety of settings so is not diagnostic nor are the esr/crp values. I will see again prn. Time Spent With Patient Time: Total time spent is greater than 50% in coordination of care (as documented) at patient's floor/unit and/or counseling patient:
[2025-05-22] MEDS: DOXYCYCLINE INJ 100 MG in SODIUM CHLORIDE 0.9% (POP) 100 ML IV ×2 (10:02→20:56)
--- NOTE | 2025-05-22 13:15 | PD.RESPRO ---
Documentation for date of: 05/22/25 Subjective Subjective Interval history: No acute overnight events. Patient seen and examined at bedside and states that her pain still present but does not appear to be in acute distress at this time with current regimen. Spoke to her regarding possibility of transfer given that in-house surgeons will not evaluate as they did not perform original procedure. Called [facility] in order to speak with performing surgeon, Bryce Funk, and was redirected to associated clinic. He was not present in spoke to employee over the phone who will even know. Otherwise, we will initiate transfer process back to [facility] for further management of nonhealing midline wound. Attempted to call radiology regarding noniodinated contrast and will reattempt to contact tomorrow for further assessment of possible fistula. Exam Vital Signs Temp Pulse Resp BP Pulse Ox O2 Del Method 98.2 F 85 15 112/54 L 95 Room Air 05/22/25 08:00 05/22/25 08:00 05/22/25 08:00 05/22/25 08:00 05/22/25 08:00 05/22/25 04:00 Narrative Exam General: AOx3, no acute distress, able to speak full sentences HEENT: NC/AT, mucous membranes moist, bilateral sclera anicteric Cardiovascular: regular rate and rhythm, S1/S2 present, no murmurs appreciated Pulmonary: clear to auscultation bilaterally, no rales/rhonchi/wheezes Abdominal: left-sided ostomy bag present with another draining lesion noted midline to ostomy bag, soft, non-distended Musculoskeletal: normal ROM, no peripheral edema Skin: midline abdominal scar present, warm and dry, intact, no rashes Neuro: CN II-XII intact, no focal deficits Objective Labs 05/23/25 05:21 05/22/25 04:33 Labs: Laboratory Results - last 24 hr 05/21/25 05/21/25 05/22/25 14:28 15:19 04:33 WBC 5.6 RBC 3.23 L Hgb 8.9 L Hct 26.5 L MCV 82 MCH 27.6 MCHC 33.6 RDW Std Deviation 47.9 H Plt Count 323 Neut % (Auto) 53 Lymph % (Auto) 34 Randolph % (Auto) 11 Eos % (Auto) 2 Baso % (Auto) 0 Neut # (Auto) 3.0 Lymph # (Auto) 1.9 Randolph # (Auto) 0.6 Eos # (Auto) 0.1 Baso # (Auto) 0.0 Immature Gran # (Auto) 0.00 Absolute Nucleated RBC 0.00 Immature Gran % 0 Nucleated RBC % 0 Puncture Site Right Radial ABG pH 7.29 L ABG pCO2 35 ABG pO2 95 ABG HCO3 17 L ABG O2 Saturation 99 H ABG Base Excess -9 L VBG pH 7.25 L VBG pCO2 42 VBG pO2 135 H VBG O2 Sat (Cece) 100 H VBG Base Excess -8 L FiO2 21 Sodium 140 Potassium 4.0 D Chloride 109 H Carbon Dioxide 20.5 Anion Gap 11 BUN 30 H Creatinine 2.5 H Estim Creat Clear Calc 19.4 L eGFR 21 L BUN/Creatinine Ratio 12 Glucose 176 H Calculated Osmolality 289 Calcium 8.7 Corrected Calcium 9.2 Magnesium 1.8 Total Bilirubin < 0.2 L AST < 10 ALT 8 L Alkaline Phosphatase 141 H Total Protein 5.7 Albumin 3.4 Globulin 2.3 Albumin/Globulin Ratio 1.5 ABG Interpretation ABG results: 05/21/25 05/21/25 14:28 15:19 ABG pH 7.29 L ABG pCO2 35 ABG pO2 95 ABG HCO3 17 L ABG O2 Saturation 99 H ABG Base Excess -9 L VBG pH 7.25 L VBG pCO2 42 VBG pO2 135 H VBG Base Excess -8 L Quality Measures Quality Measures none Advance care planning discussed with:: patient Assessment & Plan Assessment Current Active Medications: Generic Name Dose Route Start Last Admin Trade Name Freq PRN Reason Stop Dose Admin Acetaminophen 650 mg 05/20/25 02:27 Acetaminophen 325 Mg Tablet PO 06/19/25 02:26 Q6H PRN Fever >100.4 Acetaminophen 650 mg 05/20/25 02:27 Acetaminophen 325 Mg Tablet PO 06/19/25 02:26 Q6H PRN PAIN SCALE 1-3 (mild Citric Acid/Sodium Citrate 30 ml 05/21/25 15:00 05/22/25 09:10 Citric Acid/Sodium Citr 15 Ml Udc (Bicitra) PO 06/20/25 14:59 30 ml BID DENISSE Administration Clonazepam 1 mg 05/20/25 21:00 05/22/25 09:10 Clonazepam 0.5 Mg Tablet PO 05/25/25 20:59 1 mg BID DENISSE Administration Doxycycline Hyclate 100 mg/ 100 mls @ 100 mls/hr 05/20/25 21:00 05/22/25 10:02 Sodium Chloride IV 05/27/25 20:59 100 mls/hr BID DENISSE Administration Ceftriaxone Sodium/Dextrose 2 gm in 50 mls @ 100 mls/hr 05/21/25 09:00 05/22/25 09:10 Rocephin/D5w 2gm IV 05/28/25 08:59 100 mls/hr QDAY DENISSE Administration Dextrose/Sodium Chloride 1,000 mls @ 125 mls/hr 05/21/25 15:00 05/22/25 03:24 D5-1/2ns IV 05/24/25 14:59 125 mls/hr .Q8H DENISSE Administration Loperamide HCl 2 mg 05/21/25 10:38 Loperamide 2 Mg Capsule PO 05/28/25 10:37 Q6HR PRN DIARRHEA Morphine Sulfate 1 mg 05/21/25 20:58 05/22/25 07:18 Morphine Sulf Inj 10 Mg/Ml Vial IVP 05/25/25 16:19 1 mg Q6H PRN Administration BREAKTHROUGH PAIN Protocol Ondansetron HCl 4 mg 05/20/25 02:27 Ondansetron Inj 2 Mg/Ml Inj 2 Ml IVP 06/19/25 02:26 Q6H PRN NAUSEA OR VOMITING Protocol Oxycodone/Acetaminophen 1 tab 05/21/25 20:59 05/22/25 10:26 Oxycodone/Apap 5/325 Tablet PO 05/25/25 16:18 1 tab Q4H PRN Administration PAIN SCALE 4-10(Mod-Sev Pantoprazole Sodium 40 mg 05/20/25 21:00 05/22/25 09:10 Pantoprazole 40 Mg Tablet PO 06/19/25 20:59 40 mg BID DENISSE Administration Trazodone HCl 50 mg 05/20/25 21:00 05/21/25 20:23 Trazodone Hcl 50 Mg Tablet PO 06/19/25 20:59 50 mg HS DENISSE Administration Plan Ariadna Albarran is a 64-year-old female with a past medical history of CAD status post stents, PAD status post stents, A-fib not on anticoagulation, hypertension, type 2 diabetes mellitus, esophageal stricture status post dilatation, ischemic colitis complicated by SBO status post bowel resection ileostomy on 02/2025, decubitus ulcer status post debridement at [facility] who is admitted for NAGMA, SWETHA, and increased ileostomy output. #Ischemic colitis complicated by SBO status post bowel resection and ileostomy Per patient, procedure happened on 02/2025 after which she went to her rehab center. Requests were sent to obtain records from both [facility] in [place] and touched base with general surgeons in house. At this time will await records, but surgery previously recommended to transfer for higher level of care, specifically to where procedure was done. Per discharge summary from [facility], she underwent resection of splenic flexure and colocolonic anastomosis followed by abdominal closure and loop ileostomy and noted to have wound dehiscence that was to be healed by secondary intent per surgery team. However, wound is not healed over more than 2 month period and affecting ileostomy. ? Transfer process initiated ? Follow-up radiology with regards to noniodinated contrast for further evaluation of possible fistula #Acute kidney injury, likely prerenal #NAGMA Increased ileostomy output for the last few days with associated abdominal pain, initial creatinine on admission 2.6 (baseline less than 1). CT A/P showed edema in lower mesentery, large defect in posterior pelvis showing sacral and coccyx 0 segments that extend to anus, cortical bone restriction of posterior sacrum bilaterally, periumbilical hernia with bowel but no incarcerated bowel or bowel obstruction. ? Nephrology following, appreciate recommendations ? ABG: pH 7.29, p.o. Bicitra 30 mL twice daily ? D5 half NS at 125 cc/h ? Avoid nephrotoxic agents when possible, renally dose medications ? Strict I's and O's ? Urine electrolytes ordered, urine anion gap will be calculated #Osteomyelitis of sacrum #Decubitus ulcer status post debridement ? Infectious disease following, appreciate recommendations ? Doxycycline 100 mg IV twice daily (05/20-) ? Ceftriaxone 2 g IV daily (05/20-) ? Obtain records from [facility] ? Blood cultures 05/20: Pending ? Wound care #Increased ileostomy output/diarrhea ? Follow-up stool studies ? Follow-up stool culture #CAD s/p #PAD status post stents Not on antiplatelets or statin per med rec #Hypertension Blood pressure within range in house at this time, will hold on antihypertensives but none noted on med rec. #Type 2 diabetes mellitus A1c 5.9% on 02/11/2025. Blood sugar 170, will defer SSI at this time given normal A1c in January. Hospital management: Disposition: IVF for SWETHA and NAGMA, pending transfer, nephro and ID following Fluids: D5 half NS at 125 cc/h Diet: cardiac Lines: PIV DVT prophylaxis: SC heparin TID GI prophylaxis: pantoprazole CODE STATUS: full code ----- Plan discussed with attending physician Dr. Mitul Hough MD PGY-1 Internal Medicine Attending Provider Attestation/Addendum I have examined the patient, reviewed labs and imaging findings, discussed the case with the resident(s), and reviewed entered orders. I agree with the plan of care as outlined in this note, with these additional summaries/recommendations: Patient seen at bedside. No acute overnight events. Pain controlled with current regimen. Patient was diagnosed with ischemic colitis and admitted to [facility] months prior and underwent partial colectomy with ileostomy bag with Dr. Alphonso Hughes. She reports she was discharged to SNF and developed a significant decubitus ulcer and was sent to [facility] in [place] for debridement. Records requested from [facility] and [facility]. At bedside ileostomy bag appears to be functioning well although high output noted and there is a lateral defect to the ileostomy which appears to be an open wound/wound dehiscence and draining significant serosanguineous fluid. Patient now reports that this developed after placing ileostomy bag because hernan were removed too soon. Records are pending and attempting to reach out to surgeon for further information and transfer back to [facility] for surgical intervention. Continue wound care. There was concern for presumptive communicating fistula on admission although unable to confirm at this time as patient is allergic to contrast although we are working with in-house IR to see if patient can receive noniodinated contrast. Patient also noted to have stage IV coccygeal decubitus ulcer with full-thickness tissue loss with exposed muscle and minimal drainage. CT abdomen revealed osteomyelitis of coccygeal segments and sacrum. Per patient her decubitus ulcer has improved significantly over the last month. Infectious disease consulted. Continue IV antibiotics. Patient is in agreement to proceed with PICC line placement for extended course of IV antibiotics although we discussed I would like to receive the records from [facility] before proceeding. Patient also noted to have acute kidney injury with metabolic acidosis. Nephrology following and likely prerenal. Continue to monitor urinary output and IV fluids. Continue bacitracin for metabolic acidosis. Continue to hold antihypertensives for soft blood pressure. Patient updated on the plan and in agreement. All questions answered to satisfaction. Please see residents note for additional details and management. Dr. Mitul MD
[2025-05-22] MEDS: ONDANSETRON INJ 2 MG/ML INJ 2 ML 4 MG IVP (15:01)
--- NOTE | 2025-05-22 20:09 | PC.CM ---
1400 I received a referral to transfer for general surgery. I was extreme busy with other transfer in the ED and I did not have time to start transfer. Patient has been seen at [facility] and [facility] in the past.
[2025-05-22] MEDS: traZODone HCL 50 MG TABLET PO (20:54)
[2025-05-23] VITALS (7 sets, daily range): BP systolic 108–159; BP diastolic 51–75; PULSE 77–92; RESP 14–96; TEMP 36.1–36.6; O2SAT 18–96
[2025-05-23] MEDS: DEXTROSE 5%-0.45% NS 1,000 ML 125 ML IV (00:04)
[2025-05-23] MEDS: MORPHINE SULF INJ 10 MG/ML VIAL IVP ×3 (03:17→18:01)
[2025-05-23 06:24] LABS: Chloride,Urine Random 81.5 mMol/L (55.0-125.0); Potassium,Urine Random 11 mMol/L (12-62); Sodium,Urine Random 79.3 mMol/L (20.0-110.0)
[2025-05-23 06:50] LABS: Basophils % (Auto) 0 % (0-2.5); Eosinophils # (Auto) 0.1 Thou/mm3 (0.0-0.5); Eosinophils % (Auto) 2 % (0-10); Hematocrit 28.4 % (36.0-46.0); Hemoglobin 9.3 g/dL (12.0-16.0); Immature Granulocytes % (Auto) 0 % (0-0); Immature Granulocytes Auto 0.02 Thou/mm3 (0.00-0.00); Lymphocytes # (Auto) 2.2 Thou/mm3 (1.0-4.8); Lymphocytes % (Auto) 43 % (10-50); Mean Corpuscular HGB Conc 32.7 g/dl (31.0-37.0); Mean Corpuscular Hemoglobin 27.8 pg (25.0-35.0); Mean Corpuscular Volume 85 fL (80-100); Monocytes # (Auto) 0.5 Thou/mm3 (0.0-0.8); Monocytes % (Auto) 10 % (0-12); Neutrophils # (Auto) 2.3 Thou/mm3 (1.8-7.7); Neutrophils % (Auto) 44 % (37-80); Nucleated Red Blood Cell % 0 /100 WBC (0); Platelet Count 353 Thou/mm3 (140-440); RDW Standard Deviation 49.2 fL (36.4-46.3); Red Blood Count 3.34 Miln/mm3 (4.00-5.20); White Blood Count 5.1 Thou/mm3 (3.6-11.0)
[2025-05-23 07:54] LABS: Alanine Aminotransferase 15 U/L (10-49); Albumin, Serum 3.3 gm/dL (3.4-4.8); Albumin/Globulin Ratio 1.5 (1.2-2.2); Alkaline Phosphatase 177 U/L (46-116); Anion Gap 12 (7-16); Aspartate Amino Transferase 25 U/L (0-34); BUN/Creatinine Ratio 12 Ratio (12-20); Bilirubin,Total < 0.2 mg/dL (0.3-1.2); Blood Urea Nitrogen 28 mg/dL (9-23); Calcium 9.4 mg/dL (8.3-10.6); Carbon Dioxide 20.3 mMol/L (20.0-31.0); Chloride 108 mMol/L (98-107); Creatinine (Component) 2.3 mg/dL (0.6-1.3); Globulin 2.2 gm/dL (2.3-3.5); Glucose 143 mg/dL (74-106); Osmolality,Calculated 286 (275-295); Potassium 4.5 mMol/L (3.4-5.1); Sodium 140 mMol/L (136-145); Total Protein 5.5 gm/dL (5.7-8.2); eGFR 23 See Note
--- NOTE | 2025-05-23 08:30 | PC.CC ---
Addendum entered by Nikole Alas RN 05/23/25 16:10: 1609 called [facility], spoke to [facility] and informed fern picker time is 1999. [address] [facility] through [employer]. Called [facility], spoke to [facility] and setup the transport. supervisor receiving and processing time is 1999. 1545 transfer packet is complete with CD inside including all signatures. Notified bedside nurse of the transfer packet and number to call for report. Addendum entered by Nikole Alas RN 05/23/25 13:59: 1348 received call from [facility] at [facility], she has the bed for the pt. Pt will be going to [address], Room 3224, Bed 2. Report can be called at [phone]. Addendum entered by Nikole Alas RN 05/23/25 10:48: 1044 Received call from [facility] at [facility] that pt is accepted by Dr. Funk. Now she is working on a bed. Addendum entered by Nikole Alas RN 05/23/25 10:47: 1044 Received call from [facility] that pt is accepted by Dr. Funk. Now she is working on a bed. Addendum entered by Nikole Alas RN 05/23/25 10:32: 1031 Completed TBA faxed back to [facility]. Addendum entered by Nikole Alas RN 05/23/25 10:27: 1006 spoke to [facility] at [facility]. She stated she already presented the case and wants me to work on TBA. Fax number provided for the form. [phone] spoke to [facility] at [facility] and initiated the transfer request. Original Note: 0830 clinicals faxed to [facility]. 0820 Following up on the handoff of transfer nurse from yesterday. Patient needs transfer for general surgery. Per notes on transfer order pt was admitted at [facility] 02/19 and had exploratory laparotomy with resection of splenic flexure and colonic anastamosis as well as abdominal closure and loop ileostomy with ostomy bag. Reason for transfer Midline lesion that is draining fibrinous material (no fecal matter drainage). Pt was also seen at [facility] on 03/22 with midline incision present at the time and has still not healed. Doctors are requesting that patient be transferred back to the facility at which procedure was origionally performed.
[2025-05-23] MEDS: cefTRIAXone/D5w 2gm 2 GM/50 ML BAG IV (10:23)
[2025-05-23] MEDS: clonazePAM 0.5 MG TABLET 1 MG PO ×2 (10:27→20:32)
[2025-05-23] MEDS: DOXYCYCLINE INJ 100 MG in SODIUM CHLORIDE 0.9% (POP) 100 ML IV ×2 (10:27→20:34)
[2025-05-23] MEDS: PANTOPRAZOLE 40 MG TABLET PO ×2 (10:27→20:33)
--- NOTE | 2025-05-23 10:39 | PD.RESPRO ---
Documentation for date of: 05/23/25 Exam Vital Signs Temp Pulse Resp BP Pulse Ox O2 Del Method O2 Flow Rate 97.3 F 83 18 110/51 L 93 L Room Air 2 05/23/25 08:00 05/23/25 08:00 05/23/25 08:00 05/23/25 08:00 05/23/25 08:00 05/23/25 08:00 05/22/25 16:00 Objective Labs 05/23/25 05:21 05/23/25 05:21 Labs: Laboratory Results - last 24 hr 05/21/25 05/23/25 05:12 05:21 WBC 5.1 RBC 3.34 L Hgb 9.3 L Hct 28.4 L MCV 85 MCH 27.8 MCHC 32.7 RDW Std Deviation 49.2 H Plt Count 353 D Neut % (Auto) 44 Lymph % (Auto) 43 Davidson % (Auto) 10 Eos % (Auto) 2 Baso % (Auto) 0 Neut # (Auto) 2.3 Lymph # (Auto) 2.2 Davidson # (Auto) 0.5 Eos # (Auto) 0.1 Baso # (Auto) 0.0 Immature Gran # (Auto) 0.02 H Absolute Nucleated RBC 0.00 Immature Gran % 0 Nucleated RBC % 0 Sodium 140 Potassium 4.5 D Chloride 108 H Carbon Dioxide 20.3 Anion Gap 12 BUN 28 H Creatinine 2.3 H Estim Creat Clear Calc 21.0 L eGFR 23 L BUN/Creatinine Ratio 12 Glucose 143 H Calculated Osmolality 286 Calcium 9.4 Corrected Calcium 10.0 Total Bilirubin < 0.2 L AST 25 ALT 15 Alkaline Phosphatase 177 H D Total Protein 5.5 L Albumin 3.3 L Globulin 2.2 L Albumin/Globulin Ratio 1.5 Ur Random Sodium 79.3 Ur Random Potassium 11 L Ur Random Chloride 81.5 Ur Random Urea Nitrogn 152.0 L ABG Interpretation ABG results: 05/21/25 05/21/25 14:28 15:19 ABG pH 7.29 L ABG pCO2 35 ABG pO2 95 ABG HCO3 17 L ABG O2 Saturation 99 H ABG Base Excess -9 L VBG pH 7.25 L VBG pCO2 42 VBG pO2 135 H VBG Base Excess -8 L Quality Measures Quality Measures none Assessment & Plan Assessment Current Active Medications: Generic Name Dose Route Start Last Admin Trade Name Freq PRN Reason Stop Dose Admin Acetaminophen 650 mg 05/20/25 02:27 Acetaminophen 325 Mg Tablet PO 06/19/25 02:26 Q6H PRN Fever >100.4 Acetaminophen 650 mg 05/20/25 02:27 Acetaminophen 325 Mg Tablet PO 06/19/25 02:26 Q6H PRN PAIN SCALE 1-3 (mild Citric Acid/Sodium Citrate 30 ml 05/21/25 15:00 05/23/25 10:26 Citric Acid/Sodium Citr 15 Ml Udc (Bicitra) PO 06/20/25 14:59 Not Given BID DENISSE Clonazepam 1 mg 05/20/25 21:00 05/23/25 10:27 Clonazepam 0.5 Mg Tablet PO 05/25/25 20:59 1 mg BID DENISSE Administration Doxycycline Hyclate 100 mg/ 100 mls @ 100 mls/hr 05/20/25 21:00 05/23/25 10:27 Sodium Chloride IV 05/27/25 20:59 100 mls/hr BID DENISSE Administration Ceftriaxone Sodium/Dextrose 2 gm in 50 mls @ 100 mls/hr 05/21/25 09:00 05/23/25 10:23 Rocephin/D5w 2gm IV 05/28/25 08:59 100 mls/hr QDAY DENISSE Administration Dextrose/Sodium Chloride 1,000 mls @ 125 mls/hr 05/21/25 15:00 05/23/25 00:04 D5-1/2ns IV 05/24/25 14:59 125 mls/hr .Q8H DENISSE Administration Loperamide HCl 2 mg 05/21/25 10:38 Loperamide 2 Mg Capsule PO 05/28/25 10:37 Q6HR PRN DIARRHEA Morphine Sulfate 1 mg 05/21/25 20:58 05/23/25 10:26 Morphine Sulf Inj 10 Mg/Ml Vial IVP 05/25/25 16:19 1 mg Q6H PRN Administration BREAKTHROUGH PAIN Protocol Ondansetron HCl 4 mg 05/20/25 02:27 05/22/25 15:01 Ondansetron Inj 2 Mg/Ml Inj 2 Ml IVP 06/19/25 02:26 4 mg Q6H PRN Administration NAUSEA OR VOMITING Protocol Oxycodone/Acetaminophen 1 tab 05/21/25 20:59 05/22/25 23:57 Oxycodone/Apap 5/325 Tablet PO 05/25/25 16:18 1 tab Q4H PRN Administration PAIN SCALE 4-10(Mod-Sev Pantoprazole Sodium 40 mg 05/20/25 21:00 05/23/25 10:27 Pantoprazole 40 Mg Tablet PO 06/19/25 20:59 40 mg BID DENISSE Administration Trazodone HCl 50 mg 05/20/25 21:00 05/22/25 20:54 Trazodone Hcl 50 Mg Tablet PO 06/19/25 20:59 50 mg HS DENISSE Administration
--- NOTE | 2025-05-23 10:58 | PD.RESDS ---
Planned Discharge Date 05/23/25 DS: Providers Provider Date of admission: 05/20/25 02:27 Primary care physician: Sun Webb NP Admitting Provider: Yvonne Pierson MD Attending Provider on Admission: Srini Bauman MD Consults: 05/20/25 02:37 Referral Wound Care Routine Comment: 05/20/25 07:02 Referral Wound Care Stat Comment: bleeding ostomy/tunneled unstageable to sacrum/hea 05/20/25 10:32 Consult to Infectious Diseases Routine Comment: Consulting Provider: Marco Antonio Rizzo 05/21/25 10:40 Consult to Nephrology Routine Comment: NAGMA, SWETHA in setting of ostomy output Consulting Provider: Rancho Duenas 05/22/25 07:57 Referral Registered Dietitian Routine Comment: wounds 05/22/25 13:50 Referral - Synthetic Filament Extruder Routine Service Needed for Transfer: General Surgery Addl Comments:: Admitted at [facility] on 02/19 for which patient underwent exploratory laparotomy with resection of splenic flexure and colonic anastomosis as well as abdominal closure and loop ileostomy with ostomy bag placed. Eventually discharged on 03/08 to SNF for PT/OT, wound care, and with ostomy care services. However, it is not clear what follow-up patient had afterwards and she now presents here at [facility] with ostomy bag in place but now noted to have midline lesion that is draining fibrinous material (no fecal matter drainage) and in house general surgeons stated that they will not evaluate, let alone operate, on patient. Was also seen at [facility] on 03/22 with midline incision present at that time and has still not healed. Thus, at this time requesting that patient be transferred back to facility at which procedure was originally denied to be further evaluated/managed. Attending Provider on DC: Faisal Hough MD Discharging Provider: Faisal Hough MD DS: Diagnosis Problem List Completed Was Problem List Reviewed/Reconciled?: Yes Hospital Course Hospital Course Hospital course: Ariadna Albarran is a 64-year-old female with a past medical history of CAD status post stents, PAD status post stents, A-fib, hypertension, type 2 diabetes mellitus, esophageal stricture status post dilatation, ischemic colitis complicated by SBO status post exploratory laparotomy with splenic flexure resection and colocolonic anastomosis and loop ileostomy at [facility], stage IV decubitus ulcer s/p debridement at [facility] Sreedhar who presented on 05/20 with increased ileostomy output as well as drainage from what appears to be midline surgical wound dehiscence that interferes with colostomy bag. On night of admission, general surgery was called regarding ostomy bag output and wound dehiscence and initial impression was recommendation for medical management. Given increased ileostomy output as well as drainage from midline wound, patient was found to have a non-anion gap metabolic acidosis and SWETHA. Further assessment of decubitus ulcer via CT A/P showed cortical bone destruction of the posterior sacrum bilaterally. Imaging also noted a large soft tissue defect in posterior pelvis, destroying the distal sacral and all coccygeal segments that extends to the anus. Given above findings, nephrology was consulted for NAGMA and SWETHA that did not resolve with fluids and was treated and improved with Bicitra tablets, IV sodium bicarb, and D5-1/2NS. Infectious disease was consulted and patient was originally on vancomycin and Zosyn from 05/19 to 05/21 but recommended to switch to non-nephrotoxic regimen of doxycycline and Rocephin on 05/21 and has been on same antibiotic regimen since since discharge (05/23). Unable to place PICC line as IR was not available and recommend 6 weeks of antibiotics with weekly labs. Additionally, blood cultures negative after 48 hours, stool cultures negative, though abdominal wound cultures (not obtained operatively) grew Klebsiella pneumonia resistant to ampicillin, ciprofloxacin, tetracycline, and TMP-SMX. Regarding midline wound medial to ileostomy, two different surgeons recommended/emphasized transferring patient to where previous surgery was done to ensure continued care and proper management of current symptoms. No surgical interventions done while in-house. Records from both [facility] as well as [facility] were requested. It appears that patient had surgical wound dehiscence upon discharge from [facility] and plan to heal by secondary intent per surgical team and follow-up outpatient. Patient later went to [facility] for which decubitus ulcer in addition to midline wound were debrided. Per note, necrotic subcutaneous tissue and fascia along with fibrinous exudate were removed from the inferior abdominal wound and a suture that was loose and inseparable from debris was cut and removed from previously stated portion. The wound measured 6 x 2.5 x 3 cm and was debrided of 12 cm? of subcutaneous tissue and fascia and packed with Vashe soaked gauze. Findings noted likely secondary to leakage from ostomy into midline incision. Ideally would have obtained CT A/P with contrast for further evaluation of possible fistula formation as there were concerns during stay at [facility]. However, patient is allergic to iodinated contrast and was in process of discussing options denied iodinated contrast but patient was accepted to [facility]. Otherwise, no acute events occurred throughout hospitalization. Vital signs remained stable, CBC without leukocytosis since admission, hemoglobin stable, NAGMA resolved, and SWETHA improving. ----- Case discussed with attending physician Dr. Mitul Hough MD PGY-1 Internal Medicine Time Spent with Patient Time attestation: Total time spent providing and/or coordinating discharge services: Time spent: Greater than 30 minutes Exam Vital Signs Temp Pulse Resp BP Pulse Ox O2 Del Method O2 Flow Rate 97.3 F 83 18 110/51 L 93 L Room Air 2 05/23/25 08:00 05/23/25 08:00 05/23/25 08:00 05/23/25 08:00 05/23/25 08:00 05/23/25 08:00 05/22/25 16:00 Narrative Exam General: AOx3, no acute distress, able to speak full sentences HEENT: NC/AT, mucous membranes moist, bilateral sclera anicteric Cardiovascular: regular rate and rhythm, S1/S2 present, no murmurs appreciated Pulmonary: clear to auscultation bilaterally, no rales/rhonchi/wheezes Abdominal: left-sided ostomy bag present with another draining lesion noted midline to ostomy bag, soft, non-distended Musculoskeletal: normal ROM, no peripheral edema Skin: midline abdominal scar present with open wound at inferior portion of scar, warm and dry, intact, no rashes Neuro: CN II-XII intact, no focal deficits Discharge Plan Plan Patient Disposition: Xfer Other Facility Pt Being Transferred to: [facility] Service Needed for Transfer: General Surgery Prescriptions/Referrals Prescriptions/Med Rec: New loperamide 2 mg Capsule 2 mg PO Q6HR PRN (Reason: Diarrhea) 30 Days Qty: 30 0RF Continued gabapentin 300 mg Capsule 300 mg PO BID clonazepam 1 mg tablet 1 mg PO BID Patient Comments: TAKE 1 TABLET BY MOUTH TWICE A DAY NEEDED FOR ANXIETY trazodone 50 mg Tablet 50 mg PO HS Qty: 30 0RF pantoprazole 40 mg Tablet,Delayed Release (Dr/Ec) 40 mg PO BID Qty: 90 0RF acetaminophen-codeine 300-30 mg tablet 2 tab PO Q8H MDD 6 PRN (Reason: pain) Qty: 20 0RF oxycodone-acetaminophen [Percocet] 5-325 mg tablet 2 tab PO Q8H MDD 6 PRN (Reason: pain) Qty: 20 0RF ondansetron 4 mg tablet,disintegrating 4 mg PO Q8H PRN (Reason: nausea and vomiting) Qty: 10 0RF Discontinued oxycodone 5 mg capsule 5 mg PO BID MDD 2 PRN (Reason: pain) Qty: 14 0RF ciprofloxacin HCl [Cipro] 500 mg tablet 500 mg PO BID Qty: 20 0RF Referrals: Sun Webb NOTE TAKER [Primary Care Provider] - Patient/Caregiver Discharge Instructions Print Language: Brazilian Stand Alone Forms: Ceci Award Info., Patient Portal Info Letter Discharge Order Discharge Orders: Discharge (Routine); Ordered 05/23/25 Ordered By: Faisal Chowdhury Vtdalia Quality Discharge Quality Measures VTE prophylaxis Attestestation MD Attestation I have examined the patient, reviewed labs and imaging findings, discussed the case with the resident(s), and reviewed entered orders. I agree with the plan of care as outlined in this note. Time Spent: [address] Mitul MD
[2025-05-23] MEDS: oxyCODONE/APAP 5/325 TABLET 1 TAB PO ×2 (16:24→22:31)
--- NOTE | 2025-05-23 19:45 | PC.NURSE ---
Call made to [facility] to give report, no response.
--- NOTE | 2025-05-23 20:00 | PC.NURSE ---
Several calls made to [facility] trying to give report, contact number verified, states to call [phone].
--- NOTE | 2025-05-23 20:20 | PC.NURSE ---
Report called to receiving RN at [facility].
[2025-05-23] MEDS: traZODone HCL 50 MG TABLET PO (20:33)
--- NOTE | 2025-05-23 22:00 | PC.NURSE ---
Patient and families updated of possible transfer time, around 2200H.
--- NOTE | 2025-05-23 22:30 | PC.NURSE ---
[facility] in, patient for transport to [facility], report given.
--- NOTE | 2025-05-23 22:38 | PC.NURSE ---
Patient transfered to [facility] with all of her belongings.
[2025-05-25 06:49] LABS: Giardia Result NOT DETECTED; Norovirus, EIA (Stool)* NOT DETECTED
[2025-05-27 06:47] LABS: Calprotectin, Stool* 8 mcg/g
== END 2025-05-23 22:38 | disposition short-term general hospital (02) | DRG 682 ==
LOC: SERX 20:33 → SERHOLD 05-20 02:44 → S3SX 05-20 06:03
PROVIDERS: Family Medicine; Internal Medicine Infectious Disease; Student in an Organized Health Care Education/Training Program; Admitting Provider Student in an Organized Health Care Education/Training Program; Emergency Provider Emergency Medicine; PCP Nurse Practitioner Family; Visit Provider Student in an Organized Health Care Education/Training Program
DX: N17.9 Acute kidney failure, unspecified (principal); J18.9 Pneumonia, unspecified organism; L89.154 Pressure ulcer of sacral region, stage 4; M46.28 Osteomyelitis of vertebra, sacral and sacrococcygeal region; E87.20 Acidosis, unspecified; K55.9 Vascular disorder of intestine, unspecified; A09 Infectious gastroenteritis and colitis, unspecified; Z90.49 Acquired absence of other specified parts of digestive tract; E11.69 Type 2 diabetes mellitus with other specified complication; Z95.5 Presence of coronary angioplasty implant and graft; I25.10 Atherosclerotic heart disease of native coronary artery without angina pectoris; I48.91 Unspecified atrial fibrillation; I10 Essential (primary) hypertension; Z87.891 Personal history of nicotine dependence; D63.8 Anemia in other chronic diseases classified elsewhere; E11.51 Type 2 diabetes mellitus with diabetic peripheral angiopathy without gangrene; E78.5 Hyperlipidemia, unspecified; E86.0 Dehydration; K42.9 Umbilical hernia without obstruction or gangrene; N20.0 Calculus of kidney; Z91.041 Radiographic dye allergy status; Z93.2 Ileostomy status; Z98.1 Arthrodesis status
CPT/HCPCS: 36415; 36600; 71045; 74176; 76770; 80053; 81001; 82436; 82803; 83605; 83735; 83993; 84100; 84133; 84300; 84540; 85025; 85610; 85652; 86140; 86803; 87015; 87040; 87045; 87046; 87081; 87205; 87329; 87449; 87811; 87899; 93005; 93225; 96361; 96365; 96374; 96375; 96376; 99285; J0696; J2270; J2405; J2543; J3370; J3475; J3490; J7030; J7042; J7050; J7060; J7999; A9270

== ENCOUNTER → 2025-05-19 | Outpatient (CLI) | payer MEDICARE, BC, SELFPAY | END | disposition home or self-care (01) | PROVIDERS: PCP Nurse Practitioner Family; Referring Provider Nurse Practitioner Family; Visit Provider Student in an Organized Health Care Education/Training Program | DX: T81.89XA Other complications of procedures, not elsewhere classified, initial encounter (principal); S31.109A Unspecified open wound of abdominal wall, unspecified quadrant without penetration into peritoneal cavity, initial encounter; X58.XXXA Exposure to other specified factors, initial encounter; L89.154 Pressure ulcer of sacral region, stage 4; E11.69 Type 2 diabetes mellitus with other specified complication; I49.9 Cardiac arrhythmia, unspecified; M19.91 Primary osteoarthritis, unspecified site; F41.9 Anxiety disorder, unspecified | CPT/HCPCS: 11042; A9270 ==

== ENCOUNTER → 2025-05-20 | Outpatient (CLI) | payer MEDICARE, BC, SELFPAY | END | disposition home or self-care (01) | LOC: SLDO 14:19 | PROVIDERS: Referring Provider Student in an Organized Health Care Education/Training Program; Visit Provider Student in an Organized Health Care Education/Training Program | DX: E11.622 Type 2 diabetes mellitus with other skin ulcer (principal) | CPT/HCPCS: 87070; 87075; 87077; 87186; 87205 ==

== ENCOUNTER 2025-06-06 11:03 | Inpatient (IN) | payer MEDICARE, BC, SELFPAY ==
[2025-06-06] VITALS (40 sets, daily range): BP systolic 85–126; BP diastolic 39–69; PULSE 72–107; RESP 11–31; TEMP 36–37.1; O2SAT 93–100; BMI 25.2; BMI 25.8
--- NOTE | 2025-06-06 11:26 | XR_ITS ---
Examination: AP chest single view Technique: AP portable semiupright chest single view Date and time: June 06, 2025, 1400 hours Indications: Sepsis alert Findings: Normal heart size. Lungs are clear. The osseous structures are intact. Impression: No active disease
--- NOTE | 2025-06-06 11:30 | PD.EDWEAK ---
ED Weakness RME/HPI General Chief complaint: Abdominal Pain Stated complaint: GENERAL WEAKNESS Time Seen by Provider: 06/06/25 11:15 Arrival date/time: 06/06/25 11:03 RME / HPI RME / HPI Narrative: 64-year-old female patient with significant past medical history of CAD status post stent, PAD (s/p stents in bilateral femoral arteries, aorta, and ICA), hypertension, type 1 diabetes mellitus, dysphagia, and esophageal stricture status post dilatation x 2, recent ileostomy, stage IV pressure ulcer of the sacral area, came in for evaluation regarding worsening weakness, worsening abdominal pain, severity moderate for the last few days. Patient denies any fever. Denies any cough. Denies any other complaints no medication was taken prior to arrival. Been taking tramadol for pain. Family is no one doing pressure ulcer dressing on the buttock. Related Data Home Medications ?Medication ?Instructions ?Recorded ?Confirmed gabapentin 300 mg capsule 300 mg PO BID 10/19/24 05/20/25 clonazepam 1 mg tablet 1 mg PO BID 01/29/25 05/20/25 Previous Rx's ?Medication ?Instructions ?Recorded pantoprazole 40 mg tablet,delayed 40 mg PO BID #90 tabs 02/05/25 release trazodone 50 mg tablet 50 mg PO HS #30 tabs 02/05/25 acetaminophen 300 mg-codeine 30 mg 2 tab PO Q8H PRN pain #20 tabs 02/15/25 tablet oxycodone-acetaminophen 5 mg-325 2 tab PO Q8H PRN pain #20 tabs 02/17/25 mg tablet (Percocet) ondansetron 4 mg disintegrating 4 mg PO Q8H PRN nausea and 02/18/25 tablet vomiting #10 tabs loperamide 2 mg capsule 2 mg PO Q6HR PRN Diarrhea 30 days 05/23/25 #30 caps Allergies Allergy/AdvReac Type Severity Reaction Status Date / Time codeine Allergy Severe HIVES Verified 02/18/25 07:34 hydrocodone Allergy Severe RASH AND Verified 02/18/25 07:34 SWELLING Iodinated Contrast Media Allergy Severe Hives Verified 02/18/25 07:34 Review of Systems Review of Systems Narrative Review of Systems: Review of system reviewed and within normal limits except mentioned in HPI ED Exam Narrative Physical exam: VITAL SIGNS: Reviewed. GENERAL APPEARANCE: Alert and interactive, follows commands, no acute distress, HEAD AND FACE: Non-traumatic. ENT: PERRL, pink conjunctivitis, eyelid no trauma, Mucous membrane moist. NECK: Supple, nontender, no nuchal rigidity. CHEST: No tenderness, no crepitus, no paradoxical movement, no retractions. LUNGS: Clear, well ventilated, symmetric, no rales, no wheezing, no ronchi, no stridor, good breath sounds bilaterally. HEART: Regular rate, regular rhythm, no murmur, no gallops. ABDOMEN: Soft, positive bowel sounds, nondistended, no guarding, diffuse tenderness, ileostomy intact, with fecal material is noticed on the bag, no rebound, no masses, RECTAL: Stage IV ulcer on the sacral area, with minimal serous drainage, good granulation tissue no bone exposure noted GENITAL: Deferred. NEUROLOGICAL: Gross motor function intact sensory function intact, Appropriate for age. MUSCULOSKELETAL: low back nontender, full range of motion. EXTREMITIES: Nontender, full range of motion. SKIN: Color pink, dry, no rash, no lacerations, no abrasions, no contusions. LYMPHATICS: Deferred. Course Quality Measures none Orders Category Date Time Status COVID-19 Screening Questionnaire NOW Care 06/06/25 15:[address] Screening NOW Care 06/06/25 13:01 Active Salesperson [employer] STAT Care 06/06/25 11:26 Active Continuous Pulse Oximetry STAT Care 06/06/25 11:26 Completed Decision to Admit X1 Care 06/06/25 15:16 Active EKG (ED ONLY) *Do not use* NOW Care 06/06/25 11:26 Completed In and Out Catheter X1PRN Care 06/06/25 11:26 Active Insert IV NOW Care 06/06/25 11:26 Active NPO STAT Care 06/06/25 11:26 Active Strict Intake and Output Routine Care 06/06/25 11:26 Ordered Consult to General Surgery Stat Cons 06/06/25 16:[address] abdomen pelvis w con Stat Exams 06/06/25 13:01 Completed EKG (ED Only) Stat Exams 06/06/25 11:26 Ordered XR chest 1V SEPSIS PROTOCOL Stat Exams 06/06/25 11:26 Completed B-Type Natriuretic Peptide Stat Lab 06/06/25 11:40 Completed Blood Culture (Lab) Stat Lab 06/06/25 11:58 Received CBC Stat Lab 06/06/25 11:40 Completed Comprehensive Metabolic Panel Stat Lab 06/06/25 11:40 Completed LDH (Lactate Dehydrogenase) Stat Lab 06/06/25 11:40 Completed Lactate (Lactic Acid) Stat Lab 06/06/25 11:40 Completed Lipase Stat Lab 06/06/25 11:40 Completed Magnesium Stat Lab 06/06/25 11:40 Completed Partial Thromboplastin Time Stat Lab 06/06/25 11:40 Completed Phosphorous Stat Lab 06/06/25 11:40 Completed Procalcitonin Stat Lab 06/06/25 11:40 Completed Prothrombin Time with INR Stat Lab 06/06/25 11:40 Completed Troponin I Stat Lab 06/06/25 11:40 Completed Urinalysis Stat Lab 06/06/25 13:35 Completed Urine Culture Stat Lab 06/06/25 13:35 Received DiphenhydrAMINE INJ [Benadryl Inj] Med 06/06/25 12:52 Discontinued 50 mg IVP X1 ONE Morphine Inj Med 06/06/25 11:25 Discontinued 4 mg IVP X1 ONE Morphine Inj Med 06/06/25 13:01 Discontinued 4 mg IVP X1 ONE Ondansetron Inj [Zofran Inj] Med 06/06/25 11:25 Discontinued 4 mg IVP X1 ONE Piper/Tazo 3.375 gm Premix [Zosyn] Med 06/06/25 14:59 Discontinued 3.375 gm in 50 ml IV X1 Ringers Lactated 1000 ml [Lactated Ringers] 1,000 ml Med 06/06/25 15:03 Discontinued IV 999 mls/hr Ringers Lactated 1000 ml [Lactated Ringers] 1,000 ml Med 06/06/25 15:04 Discontinued IV 999 mls/hr Sodium Chloride 0.9% 1000 ml [Ns] 1,503 ml Med 06/06/25 11:25 Discontinued IV 1,503 mls/hr Oxygen Delivery NOW RT 06/06/25 11:26 Active Vital Signs Vital signs: Vital Signs Temperature 98.0 F 06/06/25 11:05 Pulse Rate 107 H 06/06/25 11:05 Respiratory Rate 20 06/06/25 11:05 Blood Pressure 89/60 L 06/06/25 11:05 Pulse Oximetry (%) 96 06/06/25 11:05 Oxygen Delivery Method Room Air 06/06/25 11:05 Weakness MDM Narrative MDM Narrative:: 64-year-old female patient with significant past medical history of CAD status post stent, PAD (s/p stents in bilateral femoral arteries, aorta, and ICA), hypertension, type 1 diabetes mellitus, dysphagia, and esophageal stricture status post dilatation x 2, recent ileostomy, stage IV pressure ulcer of the sacral area, came in for evaluation regarding worsening weakness, worsening abdominal pain, severity moderate for the last few days. Patient denies any fever. Denies any cough. Denies any other complaints no medication was taken prior to arrival. Been taking tramadol for pain. Family is the one doing pressure ulcer dressing on the buttock. EKG shows sinus tachycardia, ventricular rate of 104 bpm, no ST segment elevation or depression noted. On my initial evaluation patient was noted to have a blood pressure of 89 systolic. Patient received IV fluids,. Blood pressure went up to about 116 systolic. Was given Morphine and Zofran. Was also given IV Zosyn for acute pyelonephritis Repeat blood pressure was noted to be 83 systolic, I added 2 L of IV fluids. Spoke with Dr. Veliz, general surgeon on-call, discussed the case, and told me that patient is okay to be admitted in this hospital. Discussed the case with hospitalist who admitted the patient. Patient data External records reviewed:: None Clinical information provided by:: patient Social determinants that could affect healthcare access:: none Patient has the following chronic illnesses:: Hypertension diabetes mellitus chronic sacral ulcer recent ileostomy How is presenting disease/condition affected by chronic disease/condition?: exacerbated by Evaluation data The following diagnostics were reviewed and interpreted by me:: lab results, radiology exam(s) and EKG tracing(s) Lab and/or radiology exams considered but not ordered:: None Interpretation Summary: See results in MDM Medications / Prescriptions Medications or Prescriptions considered but not ordered:: None Medication administrations:: Medication Administration History Discontinued Medications Diphenhydramine HCl (Diphenhydramine Inj 50 Mg/Ml Vial) 50 mg IVP X1 ONE Stop: 06/06/25 12:53 Last Admin: 06/06/25 13:34 Dose: 50 mg Documented By: AYAN Sodium Chloride (Ns) 1,503 mls @ 1,503 mls/hr 30 ml/kg infuse over 60 min (1503 ml) IV .Q1H ONE Stop: 06/06/25 12:24 Last Infusion: 06/06/25 13:02 Dose: Infused Documented By: Admin: 06/06/25 12:02 Dose: 1,503 mls/hr Documented By: CG Piperacillin/Tazobactam/Dextrose (Zosyn) 3.375 gm in 50 mls @ 100 mls/hr IV X1 ONE Stop: 06/06/25 15:28 Last Infusion: 06/06/25 16:24 Dose: Infused Documented By: Admin: 06/06/25 15:56 Dose: 100 mls/hr Documented By: CG Lactated Ringer's (Lactated Ringers) 1,000 mls @ 999 mls/hr IV .Q1H1M ONE Stop: 06/06/25 16:03 Last Admin: 06/06/25 15:55 Dose: 999 mls/hr Documented By: CG Lactated Ringer's (Lactated Ringers) 1,000 mls @ 999 mls/hr IV .Q1H1M ONE Stop: 06/06/25 16:04 Last Admin: 06/06/25 15:55 Dose: 999 mls/hr Documented By: CG Morphine Sulfate (Morphine Sulf Inj 10 Mg/Ml Vial) 4 mg IVP X1 ONE Stop: 06/06/25 11:26 Last Admin: 06/06/25 12:04 Dose: 4 mg Documented By: CG Morphine Sulfate (Morphine Sulf Inj 10 Mg/Ml Vial) 4 mg IVP X1 ONE Stop: 06/06/25 13:02 Last Admin: 06/06/25 13:23 Dose: 4 mg Documented By: CG Ondansetron HCl (Ondansetron Inj 2 Mg/Ml Inj 2 Ml) 4 mg IVP X1 ONE; Protocol Stop: 06/06/25 11:26 Last Admin: 06/06/25 12:04 Dose: 4 mg Documented By: CG And Zofran, morphine, IV fluids, Zosyn IV Benadryl Consultations Consultation(s) initiated? (list below): Yes Consultation #1 (Physician, Specialty, Details): Dr. Veliz general surgeon call to get Dr. Saenz Weakness Differential Diagnosis: sepsis and dehydration Most likely diagnosis given after review of the tests above:: Acute pyelonephritis, chronic healing pressure ulcer sacral area Admission Indicated Admission indicated?: indicated Admission Request Was there a request for admission?: Yes Admission Attestation Admission request attestation: Discussed case with [] from Hospitalist service regarding admission. Discussed patients ED course, exam findings, labs, and radiology results. The Hospitalist [agrees,declines] to accept the patient for admission. Disposition Plan Disposition Plan: Admit Discharge Plan Plan Patient Disposition: Admit Acute Care w/in Hospital Prescriptions/Referrals Prescriptions/Med Rec: No Action gabapentin 300 mg Capsule 300 mg PO BID loperamide 2 mg Capsule 2 mg PO Q6HR PRN (Reason: Diarrhea) 30 Days Qty: 30 0RF clonazepam 1 mg tablet 1 mg PO BID Patient Comments: TAKE 1 TABLET BY MOUTH TWICE A DAY NEEDED FOR ANXIETY trazodone 50 mg Tablet 50 mg PO HS Qty: 30 0RF pantoprazole 40 mg Tablet,Delayed Release (Dr/Ec) 40 mg PO BID Qty: 90 0RF acetaminophen-codeine 300-30 mg tablet 2 tab PO Q8H MDD 6 PRN (Reason: pain) Qty: 20 0RF oxycodone-acetaminophen [Percocet] 5-325 mg tablet 2 tab PO Q8H MDD 6 PRN (Reason: pain) Qty: 20 0RF ondansetron 4 mg tablet,disintegrating 4 mg PO Q8H PRN (Reason: nausea and vomiting) Qty: 10 0RF Referrals: Sun Webb TEST CELL TECHNICIAN [Primary Care Provider] - In 1 week Problem List Clinical Impression: Acute pyelonephritis, Chronic ulcer of sacral region Patient/Caregiver Discharge Instructions Print Language: Latvian Stand Alone Forms: Ceci Award Info., Patient Portal Info Letter
[2025-06-06 11:54] LABS: Lactate (Lactic Acid) 1.8 mMol/L (0.4-2.0)
[2025-06-06 11:56] LABS: Basophils # (Auto) 0.0 Thou/mm3 (0.0-0.2); Basophils % (Auto) 0 % (0-2.5); Eosinophils # (Auto) 0.1 Thou/mm3 (0.0-0.5); Eosinophils % (Auto) 1 % (0-10); Hematocrit 37.4 % (36.0-46.0); Hemoglobin 12.2 g/dL (12.0-16.0); Immature Granulocytes Auto 0.01 Thou/mm3 (0.00-0.00); Lymphocytes # (Auto) 2.0 Thou/mm3 (1.0-4.8); Lymphocytes % (Auto) 27 % (10-50); Mean Corpuscular HGB Conc 32.6 g/dl (31.0-37.0); Mean Corpuscular Hemoglobin 27.4 pg (25.0-35.0); Mean Corpuscular Volume 84 fL (80-100); Monocytes # (Auto) 0.5 Thou/mm3 (0.0-0.8); Monocytes % (Auto) 6 % (0-12); Neutrophils # (Auto) 4.9 Thou/mm3 (1.8-7.7); Neutrophils % (Auto) 65 % (37-80); Nucleated Red Blood Cell # 0.00 Thou/mm3 (0.00-0.00); Nucleated Red Blood Cell % 0 /100 WBC (0); Platelet Count 463 Thou/mm3 (140-440); RDW Standard Deviation 48.7 fL (36.4-46.3); Red Blood Count 4.45 Miln/mm3 (4.00-5.20); White Blood Count 7.5 Thou/mm3 (3.6-11.0)
[2025-06-06] MEDS: SODIUM CHLORIDE 0.9% 1000 ML 1,503 ML 1503 ML IV (12:02)
[2025-06-06] MEDS: MORPHINE SULF INJ 10 MG/ML VIAL 4 MG IVP ×2 (12:04→13:23)
[2025-06-06] MEDS: ONDANSETRON INJ 2 MG/ML INJ 2 ML 4 MG IVP (12:04)
[2025-06-06 12:18] LABS: INR 1.0 (0.9-1.3); Partial Thromboplastin Time 26.8 Seconds (22.0-36.0); Prothrombin Time 10.7 Seconds (9.0-12.2)
[2025-06-06 12:20] LABS: B-Type Natriuretic Peptide < 20 pg/mL (0-100)
[2025-06-06 12:29] LABS: Alanine Aminotransferase 10 U/L (10-49); Albumin, Serum 4.7 gm/dL (3.4-4.8); Albumin/Globulin Ratio 1.3 (1.2-2.2); Alkaline Phosphatase 149 U/L (46-116); Anion Gap 11 (7-16); Aspartate Amino Transferase 18 U/L (0-34); BUN/Creatinine Ratio 33 Ratio (12-20); Bilirubin,Total 0.3 mg/dL (0.3-1.2); Blood Urea Nitrogen 36 mg/dL (9-23); Calcium 10.2 mg/dL (8.3-10.6); Calcium (Corrected) 10.2 mg/dL (8.5-10.1); Carbon Dioxide 20.8 mMol/L (20.0-31.0); Chloride 105 mMol/L (98-107); Creatinine (Component) 1.1 mg/dL (0.6-1.3); Estimated Creatinine Clearance 44.4 mL/min (>60); Globulin 3.6 gm/dL (2.3-3.5); Glucose 181 mg/dL (74-106); LDH (Lactate Dehydrogenase) 133 U/L (120-246); Lipase 54 U/L (12-53); Magnesium 1.8 mg/dL (1.6-2.6); Osmolality,Calculated 287 (275-295); Phosphorous 5.2 mg/dL (2.4-5.1); Potassium 4.5 mMol/L (3.4-5.1); Procalcitonin 0.05 ng/ml (0.0-0.49); Sodium 137 mMol/L (136-145); Total Protein 8.3 gm/dL (5.7-8.2); Troponin I < 0.002 ng/mL (0.0-0.045); eGFR 56 See Note
--- NOTE | 2025-06-06 13:01 | XR_ITS ---
Examination: CT abdomen with intravenous contrast CT pelvis with intravenous contrast 2-D coronal reconstructions 2-D sagittal reconstructions Date and time of exam:June 06, 2025 1349 hrs. 2024 Indications: Lower abdominal pain and vomiting beginning 4 days ago, history large soft tissue defect posterior pelvis destroying distal sacral and coccygeal segments and posterior sacrum. CTDI: vol (mGy) 8.71 DLP: (mGycm) 318 Technique: Multiple axial sections of the abdomen and pelvis have been obtained. 64 slice high-resolution scanner used. 3 mm axial sections have been obtained, post intravenous injection 60 cc [id number] 2-D sagittal, coronal reconstructions obtained. Low dose protocols were performed. One or more of the following dose reduction techniques were used; automated exposure control, adjustment of the mA and/or KV according to patient size, use of iterative reconstruction technique. Findings: No focal liver or splenic lesions Absent gallbladder. Common bile duct 8 mm No pancreatic mass Edema involving both kidneys, renal arterial calcifications and 2 mm calcification right kidney Heavy abdominal aortic calcification Right ostomy No bowel obstruction Surgical defect anterior pelvis Atrophic uterus Again noted soft tissue defects posterior lower pelvis with bone destruction involving the coccygeal segments and a drain noted in a collapsed abscess Impression: Findings most consistent with bilateral acute pyelonephritis Again noted soft tissue large defect posterior pelvis, with bone destruction involving distal sacral and coccygeal segments Drainage catheter is noted collapsed soft tissue abscess inferior superior right pelvis
[2025-06-06 14:14] LABS: Collection Type, Urine Clean Catch
[2025-06-06 14:45] LABS: Bilirubin,Urine Negative (Negative); Blood,Urine Negative (Negative); Clarity,Urine Clear (Clear/Hazy); Color,Urine Lt-Yellow (Lt Yel-Yel); Glucose, Urine Negative (Negative); Ketones,Urine Negative (Negative); Leukocyte Esterase,Urine Positive (Negative); Nitrite,Urine Negative (Negative); PH,Urine 5.5 (5.0-7.0); Protein,Urine Negative (Neg - Trace); RBC,Urine 14 /hpf (0-3); Specific Gravity,Urine 1.014 (1.001-1.035); Squamous Epithelial Cell,Urine 1 /hpf (0-5); Urobilinogen,Urine Negative mg/dL (0.0-1.0); WBC,Urine 29 /hpf (0-5)
--- NOTE | 2025-06-06 15:33 | PD.RESHP ---
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 Patient was discharged from hospital 2 weeks ago. Takes tramadol for pain. Patient denies recent fever or cough, dysuria, urinary frequency, or urinary urgency. The pressure ulcer dressing on the buttock has not been renewed. 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 Bowel resection and ileostomy tube creation. FH: Both parents SH: Denies smoking, tobacco product use, marijuana use or other drug abuse. Reason for admission: Patient was found to have radiologic evidence for pyelonephritis and is being admitted for its treatment. Exam Vital Signs Temp Pulse Resp BP Pulse Ox O2 Del Method 98.7 F 85 15 85/39 L 93 L Room Air 06/06/25 11:31 06/06/25 15:06/06/25 15:00 06/06/25 15:00 06/06/25 15:06/06/25 11:31 Narrative Exam General: Alert and oriented x3, No apparent distress. Skin: Intact, Warm, no rashes. HEENT: Normocephalic, Atraumatic. Normal neck range of motion, Supple. Trachea midline. Respiratory: Lungs are clear to auscultation, Breath sounds are equal bilaterally with equal chest expansion. Cardiovascular: RRR, normal S1, S2, No murmurs. Distal pulses 2+ Abdomen: Soft, positive bowel sounds, nondistended, no guarding, diffuse tenderness, ileostomy intact, with fecal material is noticed on the bag, no rebound, no masses. Rectal: Stage IV ulcer on the sacral area, with minimal serous drainage, good granulation tissue no bone exposure noted. Renal: CVA tenderness noted on the left. Musculoskeletal: No swelling, moving all 4 extremities with FROM Neurologic: Alert, Oriented, No focal deficits. Moving all 4 extremities spontaneously Psych: Thoughts linear and responses appropriate. Results: Labs 06/07/25 05:49 06/07/25 05:49 Labs: Short CBC 06/06/25 Range/Units 11:40 WBC 7.5 (3.6-11.0) Thou/mm3 Hgb 12.2 (12.0-16.0) g/dL Hct 37.4 (36.0-46.0) % Plt Count 463 H D (140-440) Thou/mm3 BMP 06/06/25 11:40 Sodium 137 Potassium 4.5 Chloride 105 Carbon Dioxide 20.8 BUN 36 H Creatinine 1.1 Glucose 181 H Calcium 10.2 Cardiac Enzymes 06/06/25 Range/Units 11:40 Troponin I < 0.002 (0.0-0.045) ng/mL Liver Function 06/06/25 Range/Units 11:40 Total Bilirubin 0.3 (0.3-1.2) mg/dL AST 18 (0-34) U/L ALT 10 (10-49) U/L Alkaline Phosphatase 149 H (46-116) U/L Albumin 4.7 (3.4-4.8) gm/dL Urine 06/06/25 Range/Units 13:35 Urine Color Lt-Yellow (Lt Yel-Yel) Urine Clarity Clear (Clear/Hazy) Urine pH 5.5 (5.0-7.0) Ur Specific [place] 1.014 (1.001-1.035) Urine Protein Negative (Neg - Trace) Urine Glucose (UA) Negative (Negative) Quality Measures Quality Measures VTE prophylaxis Advance care planning discussed with:: patient (will be discussed during next round) Medications Home Medications and Allergies Home Medications ?Medication ?Instructions ?Recorded ?Confirmed ?Type gabapentin 300 mg capsule 300 mg PO BID 10/19/24 05/20/25 History clonazepam 1 mg tablet 1 mg PO BID 01/29/25 05/20/25 History Allergies Allergy/AdvReac Type Severity Reaction Status Date / Time codeine Allergy Severe HIVES Verified 02/18/25 07:34 hydrocodone Allergy Severe RASH AND Verified 02/18/25 07:34 SWELLING Iodinated Contrast Media Allergy Severe Hives Verified 02/18/25 07:34 Visit Medications Lactated Ringer's (Lactated Ringers) 1,000 mls @ 999 mls/hr IV .Q1H1M ONE Stop: 06/06/25 16:03 Lactated Ringer's (Lactated Ringers) 1,000 mls @ 999 mls/hr IV .Q1H1M ONE Stop: 06/06/25 16:04 Discontinued Medications Diphenhydramine HCl (Diphenhydramine Inj 50 Mg/Ml Vial) 50 mg IVP X1 ONE Stop: 06/06/25 12:53 Last Admin: 06/06/25 13:34 Dose: 50 mg Sodium Chloride (Ns) 1,503 mls @ 1,503 mls/hr 30 ml/kg infuse over 60 min (1503 ml) IV .Q1H ONE Stop: 06/06/25 12:24 Last Infusion: 06/06/25 13:02 Dose: Infused Piperacillin/Tazobactam/Dextrose (Zosyn) 3.375 gm in 50 mls @ 100 mls/hr IV X1 ONE Stop: 06/06/25 15:28 Morphine Sulfate (Morphine Sulf Inj 10 Mg/Ml Vial) 4 mg IVP X1 ONE Stop: 06/06/25 11:26 Last Admin: 06/06/25 12:04 Dose: 4 mg Morphine Sulfate (Morphine Sulf Inj 10 Mg/Ml Vial) 4 mg IVP X1 ONE Stop: 06/06/25 13:02 Last Admin: 06/06/25 13:23 Dose: 4 mg Ondansetron HCl (Ondansetron Inj 2 Mg/Ml Inj 2 Ml) 4 mg IVP X1 ONE; Protocol Stop: 06/06/25 11:26 Last Admin: 06/06/25 12:04 Dose: 4 mg Assessment & Plan Plan Ariadna Albarran is a 64-year-old female patient with significant past medical history of CAD status post stent, PAD (s/p stents in bilateral femoral arteries, aorta, and ICA), hypertension, type 1 diabetes mellitus, dysphagia, and esophageal stricture status post dilatation x 2, recent ileostomy, 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 CTAP: Absent gallbladder. renal arterial calcifications and 2 mm calcification right kidney Heavy abdominal aortic calcification Right ostomy Surgical defect anterior pelvis Atrophic uterus Again noted soft tissue defects posterior lower pelvis with bone destruction involving the coccygeal segments and a drain noted in a collapsed abscess Impression: Again noted soft tissue large defect posterior pelvis, with bone destruction involving distal sacral and coccygeal segments Drainage catheter is noted collapsed soft tissue abscess inferior superior right pelvis # Pyelonephritis CTAP: Edema involving both kidneys. Findings most consistent with bilateral acute pyelonephritis + Left CVA tenderness on PE. Patient afebrile, no leukocytosis. Plan: -IV Zosyn 3.375 Q8h -urine and blood ctx -CBC, CMP AM draw -IV morphine 2mg Q4h PRN -IVP ondansetran inj 4mg PRN #Stage IV pressure ulcer of sacral area on PE, there is minimal serous drainage, good granulation tissue, and no bone exposure. No purulence noted. According to surgical consult, not an inpatient surgery candidate. Patient is scheduled with a plastic surgeon to evaluate her sacral wound in an outpatient clinic next Sunday. #T2DM patient on sliding scale insulin IV dextrose protocol if hypoglycemic Health maintanance Diet: clear liquids PPx GI: Pantoprozole 40mg Qday PPx DVT: IVP heparin 5000u bid Code status: routine Case was discussed with attending physician, Dr. Bauman, and senior resident Dr Montoya. Caren Escalante DO PGY I Attending Provider Attestation/Addendum I have examined the patient, reviewed labs and imaging findings, discussed the case with the resident(s), and reviewed entered orders. I agree with the plan of care as outlined in this note, with these additional summaries/recommendations: After examination of the patient and review of the clinical data, I feel that this patient needs admission to the hospital for further treatment and evaluation. Patient is a 64-year-old female with a medical history of primary hypertension, [id number] diabetes mellitus type 2, GERD, hyperlipidemia, COPD, chronic pain, and history of SBO status post colostomy and decubitus ulcer who presents to [facility] emergency department on 06/06/2025 with chief complaint of severe abdominal and back pain. Patient diagnosed with acute pyelonephritis. CT abdomen and pelvis showed edema involving both kidneys with minimal perinephric fat stranding. Urinalysis suspicious for urinary tract infection although no bacteria seen but patient appears to have completed course of antibiotics within the last couple weeks. Urine and blood cultures taken. Start IV antibiotics. Patient was recently reevaluated at [facility] for drainage lateral to ileostomy tube. Patient was told mesh was left behind from previous surgery and she does not have a fistula. Patient has outpatient follow-up with surgery in [facility] this week. Patient also underwent debridement of decubitus ulcer and appears to be healing well. CT abdomen and pelvis also revealed soft tissue abscess inferior superior right pelvis with drainage catheter in place. We will consult general surgery and wound care for additional recommendations. Start pain management with IV morphine and we will attempt to limit narcotics as patient is noted to develop hypotension after large doses of narcotics. We will start IV morphine and titrate as needed although ultimately we will have to transition to oral regimen so that patient can eventually be discharged. Continue home antihypertensives as tolerated. Start insulin sliding scale for diabetes mellitus type 2. Breathing treatments as needed for history of COPD. Patient updated on the plan and in agreement. All questions answered to satisfaction. Please see residents note for additional details and management. Dr. Mitul MD
[2025-06-06] MEDS: RINGERS LACTATED 1000 ML 1,000 ML 999 ML IV ×2 (15:55)
[2025-06-06] MEDS: PIPER/TAZO 3.375 GM PREMIX 3.375 GM/50 ML BAG IV (15:56)
[2025-06-06 18:59] LABS: Procalcitonin 0.04 ng/ml (0.0-0.49)
[2025-06-06] MEDS: SODIUM CHLORIDE 0.9% 1000 ML 1,000 ML 75 ML IV (19:42)
[2025-06-06] MEDS: MORPHINE SULF INJ 10 MG/ML VIAL 2 MG IVP (20:23)
[2025-06-06] MEDS: GABAPENTIN 300 MG CAPSULE PO (20:24)
[2025-06-07] MEDS: MORPHINE SULF INJ 10 MG/ML VIAL 2 MG IVP ×5 (00:26→20:19)
[2025-06-07 01:01] VITALS: PULSE 90
--- NOTE | 2025-06-07 01:16 | PC.NURSE ---
Spoke to patient regarding home medication list, patient responded that she doesn't know them by heart, patient was educated about the importance of home medication list towards her plan of care, and was instructed to have her , Ceasra, bring her home medication list with him when visiting the patient tomorrow. Patient agreed, care continued.
[2025-06-07 01:41] LABS: Collection Type, Urine Clean Catch
[2025-06-07 01:47] LABS: Bilirubin,Urine Negative (Negative); Blood,Urine Negative (Negative); Clarity,Urine Clear (Clear/Hazy); Color,Urine Colorless (Lt Yel-Yel); Glucose, Urine Negative (Negative); Ketones,Urine Negative (Negative); Leukocyte Esterase,Urine Positive (Negative); Nitrite,Urine Negative (Negative); PH,Urine 5.0 (5.0-7.0); Protein,Urine Negative (Neg - Trace); RBC,Urine 1 /hpf (0-3); Specific Gravity,Urine 1.020 (1.001-1.035); Squamous Epithelial Cell,Urine < 1 /hpf (0-5); Urobilinogen,Urine Negative mg/dL (0.0-1.0); WBC,Urine 12 /hpf (0-5)
[2025-06-07 04:00] VITALS: BP 106/48; PULSE 74; PULSE 75; RESP 16; TEMP 36.2; O2SAT 97
[2025-06-07 06:37] LABS: Basophils # (Auto) 0.0 Thou/mm3 (0.0-0.2); Basophils % (Auto) 0 % (0-2.5); Eosinophils # (Auto) 0.1 Thou/mm3 (0.0-0.5); Eosinophils % (Auto) 2 % (0-10); Hematocrit 28.5 % (36.0-46.0); Hemoglobin 9.0 g/dL (12.0-16.0); Immature Granulocytes Auto 0.01 Thou/mm3 (0.00-0.00); Lymphocytes # (Auto) 2.1 Thou/mm3 (1.0-4.8); Lymphocytes % (Auto) 36 % (10-50); Mean Corpuscular HGB Conc 31.6 g/dl (31.0-37.0); Mean Corpuscular Hemoglobin 27.4 pg (25.0-35.0); Mean Corpuscular Volume 87 fL (80-100); Monocytes # (Auto) 0.6 Thou/mm3 (0.0-0.8); Monocytes % (Auto) 10 % (0-12); Neutrophils # (Auto) 3.1 Thou/mm3 (1.8-7.7); Neutrophils % (Auto) 52 % (37-80); Nucleated Red Blood Cell # 0.00 Thou/mm3 (0.00-0.00); Nucleated Red Blood Cell % 0 /100 WBC (0); Platelet Count 350 Thou/mm3 (140-440); RDW Standard Deviation 50.2 fL (36.4-46.3); Red Blood Count 3.28 Miln/mm3 (4.00-5.20); White Blood Count 5.9 Thou/mm3 (3.6-11.0)
[2025-06-07 07:27] LABS: Alanine Aminotransferase 9 U/L (10-49); Albumin, Serum 3.4 gm/dL (3.4-4.8); Albumin/Globulin Ratio 1.3 (1.2-2.2); Alkaline Phosphatase 109 U/L (46-116); Anion Gap 10 (7-16); Aspartate Amino Transferase 14 U/L (0-34); BUN/Creatinine Ratio 20 Ratio (12-20); Bilirubin,Total 0.2 mg/dL (0.3-1.2); Blood Urea Nitrogen 20 mg/dL (9-23); C-Reactive Protein < 0.5 mg/dL (0.0-0.9); Calcium 8.7 mg/dL (8.3-10.6); Calcium (Corrected) 9.2 mg/dL (8.5-10.1); Carbon Dioxide 21.8 mMol/L (20.0-31.0); Chloride 111 mMol/L (98-107); Creatinine (Component) 1.0 mg/dL (0.6-1.3); Estimated Creatinine Clearance 49.3 mL/min (>60); Globulin 2.6 gm/dL (2.3-3.5); Glucose 125 mg/dL (74-106); Magnesium 1.2 mg/dL (1.6-2.6); Osmolality,Calculated 288 (275-295); Phosphorous 4.0 mg/dL (2.4-5.1); Potassium 4.0 mMol/L (3.4-5.1); Procalcitonin 0.05 ng/ml (0.0-0.49); Sodium 143 mMol/L (136-145); Thyroid Stimulating Hormone 3.77 uIU/mL (0.55-4.78); Total Protein 6.0 gm/dL (5.7-8.2); eGFR > 60 See Note
[2025-06-07 08:00] VITALS: BP 116/49; PULSE 74; PULSE 75; RESP 14; TEMP 36.1; O2SAT 96
[2025-06-07] MEDS: HEPARIN SOD INJ 5000 UNIT/ML VIAL SC ×2 (08:25→20:20)
[2025-06-07] MEDS: Magnesium Sulfate 4 GM Ivpb 4 GM/50 ML BAG IV (08:26)
[2025-06-07] MEDS: PIPER/TAZO 3.375 GM PREMIX 3.375 GM/50 ML BAG IV ×4 (08:26→23:46)
[2025-06-07] MEDS: GABAPENTIN 300 MG CAPSULE PO ×2 (08:27→20:19)
--- NOTE | 2025-06-07 10:14 | PD.SURCONS ---
HPI Consult details History of present illness: 64F with HTN, DM1, CAD and PAD, recent ileostomy and chronic sacral ulcer who presented to ER 06/06 with weakness and abdominal pain, findings of acute bilateral pyelonephritis. Pt additionally notes severe pain at the sacral area for the last few days, reports that she is scheduled for a graft surgery for the sacral ulcer PMH: HTN, DM1, CAD and PAD, recent ileostomy and chronic sacral ulcer PSHx: Debridement and drain placement for sacral ulcer, ileostomy for SBO in [place] 02/2025 (pt was advised it can be reversed but should wait after healing of sacral ulcer), spinal fusion Meds: No antiplt or anticoagulation Allergies: IV contrast Review of Systems Review of Systems ROS Unobtainable: All systems reviewed & no additional complaints except as documented Meds Home Medications and Allergies Home Medications ?Medication ?Instructions ?Recorded ?Confirmed ?Type gabapentin 300 mg capsule 300 mg PO BID 10/19/24 05/20/25 History clonazepam 1 mg tablet 1 mg PO BID 01/29/25 05/20/25 History Allergies Allergy/AdvReac Type Severity Reaction Status Date / Time codeine Allergy Severe HIVES Verified 02/18/25 07:34 hydrocodone Allergy Severe RASH AND Verified 02/18/25 07:34 SWELLING Iodinated Contrast Media Allergy Severe Hives Verified 02/18/25 07:34 Exam Vital Signs Temp Pulse Resp BP Pulse Ox O2 Del Method 96.9 F 74 14 116/49 L 96 Room Air 06/07/25 08:00 06/07/25 08:00 06/07/25 08:00 06/07/25 08:00 06/07/25 08:00 06/07/25 08:00 Constitutional Constitutional: no acute distress Routine Respiratory Exam Respiratory: Present no resp distress Routine Abdominal Exam Abdominal: Present soft, wound (transverse wound medial to ileostomy with beefy red granulation tissue, no surrounding erythema, no fluctuance or drainage) and ostomy (ileostomy pink with liquid stool in appliance); Absent tenderness or distended Routine Skin Exam Comments: sacral ulcer with beefy red granulation tissue at base, linda drain to right lateral skin with minimal drainage Results Results: Laboratory Laboratory results: results reviewed Results: Imaging CT scan - abdomen: report reviewed and image reviewed Assessment & Plan Plan 64F with HTN, DM1, CAD and PAD, recent ileostomy and chronic sacral ulcer who presented to ER 7/12 with weakness and abdominal pain, findings of acute bilateral pyelonephritis. She has abdominal and sacral wounds which are both very healthy appearing and do not require intervention Daily wet-dry dressings to abdominal and sacral wounds Pt already has outpt follow up for her sacral wound with plan for graft surgery
[2025-06-07] MEDS: MORPHINE SULF INJ 10 MG/ML VIAL 4 MG IVP (11:18)
[2025-06-07] MEDS: SODIUM CHLORIDE 0.9% 1000 ML 1,000 ML 75 ML IV (11:36)
[2025-06-07 12:00] VITALS: BP 113/49; PULSE 82; PULSE 88; RESP 20; TEMP 36.1; O2SAT 94
--- NOTE | 2025-06-07 14:57 | ESPR_ITS ---
Documentation for date of: 06/07/25 Subjective Subjective Interval history: No acute events overnight. Patient was seen and evaluated at bedside today. She reports a good night sleep after taking diphenhydramine at night. She admits to lower back pain left more than right. There is also pain at the site of ileostomy. Denies nausea or vomiting. Denies dysuria, frequency, urgency. Exam Vital Signs Temp Pulse Resp BP Pulse Ox O2 Del Method 96.9 F 88 14 116/49 L 96 Room Air 06/07/25 08:00 06/07/25 12:00 06/07/25 08:00 06/07/25 08:00 06/07/25 08:00 06/07/25 08:00 Narrative Exam General: Alert and oriented x3, No apparent distress. Skin: Intact, Warm, no rashes. HEENT: Normocephalic, Atraumatic. Normal neck range of motion, Supple. Trachea midline. Respiratory: Lungs are clear to auscultation, Breath sounds are equal bilaterally with equal chest expansion. Cardiovascular: RRR, normal S1, S2, No murmurs. Distal pulses 2+ Abdomen: Soft, positive bowel sounds, nondistended, no guarding, diffuse tenderness, ileostomy intact, with fecal material is noticed on the bag, no rebound, no masses. Rectal: Stage IV ulcer on the sacral area, with minimal serous drainage, good granulation tissue no bone exposure noted. Renal: CVA tenderness noted on the left. Musculoskeletal: No swelling, moving all 4 extremities with FROM Neurologic: Alert, Oriented, No focal deficits. Moving all 4 extremities spontaneously Psych: Thoughts linear and responses appropriate. Objective Labs 06/07/25 05:49 06/07/25 05:49 Labs: Laboratory Results - last 24 hr 06/06/25 06/07/25 06/07/25 18:15 01:20 05:49 WBC 5.9 RBC 3.28 L Hgb 9.0 L D Hct 28.5 L MCV 87 MCH 27.4 MCHC 31.6 RDW Std Deviation 50.2 H Plt Count 350 D Neut % (Auto) 52 Lymph % (Auto) 36 [place] % (Auto) 10 Eos % (Auto) 2 Baso % (Auto) 0 Neut # (Auto) 3.1 Lymph # (Auto) 2.1 [place] # (Auto) 0.6 Eos # (Auto) 0.1 Baso # (Auto) 0.0 Immature Gran # (Auto) 0.01 H Absolute Nucleated RBC 0.00 Immature Gran % 0 Nucleated RBC % 0 Sodium 143 Potassium 4.0 D Chloride 111 H Carbon Dioxide 21.8 Anion Gap 10 BUN 20 Creatinine 1.0 Estim Creat Clear Calc 49.3 L eGFR > 60 BUN/Creatinine Ratio 20 Glucose 125 H D Calculated Osmolality 288 Calcium 8.7 D Corrected Calcium 9.2 Phosphorus 4.0 Magnesium 1.2 L Total Bilirubin 0.2 L AST 14 ALT 9 L Alkaline Phosphatase 109 D C-Reactive Prot, Quant < 0.5 Total Protein 6.0 Albumin 3.4 D Globulin 2.6 Albumin/Globulin Ratio 1.3 Procalcitonin 0.04 0.05 TSH 3.77 Ur Collection Type Clean Catch Urine Color Colorless A Urine Clarity Clear Urine pH 5.0 Ur Specific [place] 1.020 Urine Protein Negative Urine Glucose (UA) Negative Urine Ketones Negative Urine Blood Negative Urine Nitrite Negative Urine Bilirubin Negative Urine Urobilinogen (Auto) Negative Ur Leukocyte Esterase Positive Urine RBC 1 Urine WBC 12 H Ur Squamous Epith Cells < 1 Urine Bacteria None Quality Measures Quality Measures VTE prophylaxis Advance care planning discussed with:: patient Assessment & Plan Assessment Current Active Medications: Generic Name Dose Route Start Last Admin Trade Name Freq PRN Reason Stop Dose Admin Acetaminophen 650 mg 06/06/25 18:33 Acetaminophen 325 Mg Tablet PO 07/06/25 18:32 Q6HR PRN Fever >100 or pain 1-3 Dextrose 25 ml 06/06/25 18:00 Dextrose 50%-Water Inj 50 Ml Syringe IV 07/06/25 17:59 Q15MIN PRN BG 50-70 responsive npo pt Dextrose 50 ml 06/06/25 18:00 Dextrose 50%-Water Inj 50 Ml Syringe IV 07/06/25 17:59 Q15MIN PRN BG <50 OR BG <70 & pt unresponsive Gabapentin 300 mg 06/06/25 21:00 06/07/25 08:27 Gabapentin 300 Mg Capsule PO 07/06/25 20:59 300 mg BID DENISSE Administration Glucagon 1 mg 06/06/25 18:00 Glucagon Inj 1 Mg Vial IM Q15MIN PRN BG <70, and no IV access Heparin Sodium (Porcine) 5,000 unit 06/07/25 09:00 06/07/25 08:25 Heparin Sod Inj 5000 Unit/Ml Vial SC 06/21/25 08:59 5,000 unit BID DENISSE Administration Sodium Chloride 1,000 mls @ 75 mls/hr 06/06/25 17:45 06/07/25 11:36 Ns IV 07/06/25 17:44 75 mls/hr .[id number] DENISSE Administration Piperacillin/Tazobactam/Dextrose 3.375 gm in 50 mls @ 12.5 mls/hr 06/07/25 00:00 06/07/25 08:26 Zosyn IV 06/14/25 00:00 12.5 mls/hr Q8HR DENISSE Administration Morphine Sulfate 2 mg 06/07/25 10:54 Morphine Sulf Inj 10 Mg/Ml Vial IVP 06/11/25 18:34 Q4H PRN Breakthrough Pain Protocol Ondansetron HCl 4 mg 06/06/25 18:02 Ondansetron Inj 2 Mg/Ml Inj 2 Ml IVP 07/06/25 18:01 Q8HR PRN NAUSEA OR VOMITING Protocol Pantoprazole Sodium 40 mg 06/06/25 18:45 06/07/25 08:25 Pantoprazole Inj 40 Mg Vial IVP 07/06/25 18:44 40 mg QDAY DENISSE Administration Tramadol HCl 50 mg 06/07/25 10:54 Tramadol Hcl 50 Mg Tablet PO 06/12/25 11:59 Q6HR PRN pain 7-10 Trazodone HCl 50 mg 06/06/25 21:00 06/06/25 20:24 Trazodone Hcl 50 Mg Tablet PO 07/06/25 20:59 50 mg HS DENISSE Administration Plan Urinalysis suspicious for urinary tract infection although no bacteria seen but patient appears to have completed course of antibiotics within the last couple weeks. 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 CTAP: Absent gallbladder. renal arterial calcifications and 2 mm calcification right kidney Heavy abdominal aortic calcification Right ostomy Surgical defect anterior pelvis Atrophic uterus # Pyelonephritis CTAP: Edema involving both kidneys with minimal perinephric fat stranding. Findings most consistent with bilateral acute pyelonephritis. soft tissue defects posterior lower pelvis with bone destruction involving the coccygeal segments and a drain noted in a collapsed abscess + Left CVA tenderness on PE. Patient afebrile, no leukocytosis. Plan: -IV Zosyn 3.375 Q8h -urine and blood ctx -CBC, CMP AM draw -IV morphine 2mg Q4h PRN -trazodone 50mg HS -IVP ondansetran inj 4mg PRN #Stage IV pressure ulcer of sacral area Patient was recently reevaluated at [facility] for drainage lateral to ileostomy tube. Patient was told mesh was left behind from previous surgery and she does not have a fistula. Patient has outpatient follow-up with surgery in [facility] this week. Patient also underwent debridement of decubitus ulcer and appears to be healing well. on PE, there is minimal serous drainage, good granulation tissue, and no bone exposure. No purulence noted. According to surgical consult, not an inpatient surgery candidate. Patient is scheduled with a outpt plastic surgeon to evaluate her sacral wound for graft surgery on Sunday. Dr Veliz, gen-surg consulted, her recommendations: Daily wet-dry dressings to abdominal and sacral wounds #T2DM patient on sliding scale insulin IV dextrose protocol if hypoglycemic #anxiety patient on clonazepam 1mg x1 Qday Health maintanance Diet: clear liquids PPx GI: Pantoprozole 40mg Qday PPx DVT: IVP heparin 5000u bid Code status: routine Attending Provider Attestation/Addendum I have examined the patient, reviewed labs and imaging findings, discussed the case with the resident(s), and reviewed entered orders. I agree with the plan of care as outlined in this note, with these additional summaries/recommendations: After examination of the patient and review of the clinical data, I feel that this patient needs admission to the hospital for further treatment and evaluation. Patient is a 64-year-old female with a medical history of primary hypertension, esp-[id number] diabetes mellitus type 2, GERD, hyperlipidemia, COPD, chronic pain, and history of SBO status post colostomy and decubitus ulcer who presents to [facility] emergency department on 06/06/2025 with chief complaint of severe abdominal and back pain. Patient seen at bedside. No acute overnight events. She reports improvement in pain although still not controlled. Pain regimen adjusted. Patient diagnosed with acute pyelonephritis. CT abdomen and pelvis showed edema involving both kidneys with minimal perinephric fat stranding. Urine and blood cultures taken, f/u results when available. Continue IV antibiotics. CT abdomen and pelvis also revealed soft tissue abscess inferior superior right pelvis with drainage catheter in place. Patient has appointment this week with surgery at [facility] and in house surgery following. Continue pain management with IV morphine and resume home tramadol. We will titrate morphine as needed although ultimately we will have to transition to oral regimen so that patient can eventually be discharged. Continue home antihypertensives as tolerated. Continue insulin sliding scale for diabetes mellitus type 2. Breathing treatments as needed for history of COPD. Patient updated on the plan and in agreement. All questions answered to satisfaction. Please see residents note for additional details and management. Dr. Mitul MD
[2025-06-07 16:00] VITALS: BP 117/61; PULSE 75; PULSE 78; RESP 17; TEMP 36.3; O2SAT 96
[2025-06-07 20:00] VITALS: BP 103/48; PULSE 80; RESP 19; TEMP 36.1; O2SAT 97
[2025-06-08] VITALS: BP 106/61; PULSE 81; RESP 13; TEMP 36; O2SAT 95
[2025-06-08] MEDS: MORPHINE SULF INJ 10 MG/ML VIAL 2 MG IVP ×4 (01:27→15:45)
[2025-06-08] MEDS: SODIUM CHLORIDE 0.9% 1000 ML 1,000 ML 75 ML IV (02:09)
[2025-06-08 04:00] VITALS: BP 110/50; PULSE 75; RESP 17; TEMP 36.2; O2SAT 96
[2025-06-08] MEDS: PIPER/TAZO 3.375 GM PREMIX 3.375 GM/50 ML BAG IV (05:34)
[2025-06-08 08:00] VITALS: BP 126/60; PULSE 74; RESP 15; TEMP 36.1; O2SAT 98
[2025-06-08 09:04] LABS: Basophils # (Auto) 0.0 Thou/mm3 (0.0-0.2); Basophils % (Auto) 0 % (0-2.5); Eosinophils # (Auto) 0.1 Thou/mm3 (0.0-0.5); Eosinophils % (Auto) 2 % (0-10); Hematocrit 28.2 % (36.0-46.0); Hemoglobin 9.1 g/dL (12.0-16.0); Immature Granulocytes Auto 0.01 Thou/mm3 (0.00-0.00); Lymphocytes # (Auto) 1.9 Thou/mm3 (1.0-4.8); Lymphocytes % (Auto) 39 % (10-50); Mean Corpuscular HGB Conc 32.3 g/dl (31.0-37.0); Mean Corpuscular Hemoglobin 27.8 pg (25.0-35.0); Mean Corpuscular Volume 86 fL (80-100); Monocytes # (Auto) 0.4 Thou/mm3 (0.0-0.8); Monocytes % (Auto) 8 % (0-12); Neutrophils # (Auto) 2.5 Thou/mm3 (1.8-7.7); Neutrophils % (Auto) 50 % (37-80); Nucleated Red Blood Cell # 0.00 Thou/mm3 (0.00-0.00); Nucleated Red Blood Cell % 0 /100 WBC (0); Platelet Count 350 Thou/mm3 (140-440); RDW Standard Deviation 49.4 fL (36.4-46.3); Red Blood Count 3.27 Miln/mm3 (4.00-5.20); White Blood Count 4.9 Thou/mm3 (3.6-11.0)
[2025-06-08 09:23] LABS: Alanine Aminotransferase 9 U/L (10-49); Albumin, Serum 3.6 gm/dL (3.4-4.8); Albumin/Globulin Ratio 1.4 (1.2-2.2); Alkaline Phosphatase 124 U/L (46-116); Anion Gap 10 (7-16); Aspartate Amino Transferase 14 U/L (0-34); BUN/Creatinine Ratio 13 Ratio (12-20); Bilirubin,Total 0.2 mg/dL (0.3-1.2); Blood Urea Nitrogen 12 mg/dL (9-23); Calcium 9.1 mg/dL (8.3-10.6); Calcium (Corrected) 9.4 mg/dL (8.5-10.1); Carbon Dioxide 21.9 mMol/L (20.0-31.0); Chloride 109 mMol/L (98-107); Creatinine (Component) 0.9 mg/dL (0.6-1.3); Estimated Creatinine Clearance 54.8 mL/min (>60); Globulin 2.6 gm/dL (2.3-3.5); Glucose 161 mg/dL (74-106); Osmolality,Calculated 283 (275-295); Potassium 4.3 mMol/L (3.4-5.1); Sodium 141 mMol/L (136-145); Total Protein 6.2 gm/dL (5.7-8.2); eGFR > 60 See Note
[2025-06-08] MEDS: HEPARIN SOD INJ 5000 UNIT/ML VIAL SC ×2 (10:00→21:09)
[2025-06-08] MEDS: GABAPENTIN 300 MG CAPSULE PO ×2 (10:01→21:15)
[2025-06-08] MEDS: Magnesium Sulfate 4 GM Ivpb 4 GM/50 ML BAG IV (10:14)
[2025-06-08 12:00] VITALS: BP 117/60; PULSE 70; PULSE 83; RESP 17; TEMP 36.1; O2SAT 94
[2025-06-08] MEDS: cefTRIAXone/D5w 1gm IV premix 1 GM/50 ML BAG IV (12:38)
--- NOTE | 2025-06-08 14:41 | ESPR_ITS ---
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 Completed course of ANTIBIOTICS, cultures have been negative. Otherwise stable for discharge however has been on IV MORPHINE for pain, currently weaning off pain meds in preparation for discharge tomorrow. Case was discussed with attending physician. Fab Fishman DO PGY II This document was transcribed using voice recognition technology. Minor inaccuracies may be present. Documentation for date of: 06/08/25 Subjective Subjective Interval history: No acute events overnight. Patient was seen and evaluated at bedside today. She admits to lower back pain left more than right. Wound care nurse was just who removed previous dressing over the sacral ulcer and applied a new one. Patient reports pain as a result and expects her next dose of scheduled morphine at 9:30. There is also pain at the site of ileostomy. Denies nausea or vomiting. Denies dysuria, frequency, urgency. Patient has an appointment at an outpatient plastic surgery for management of her ulcer at 1:00 on Sunday. Patient understands that she needs to have been at least 12 hours off morphine before she would be deemed stable for discharge. Exam Vital Signs Temp Pulse Resp BP Pulse Ox O2 Del Method 97.0 F 70 17 117/60 94 L Room Air 06/08/25 12:00 06/08/25 12:00 06/08/25 12:00 06/08/25 12:00 06/08/25 12:06/08/25 08:00 Narrative Exam General: Alert and oriented x3, No apparent distress. Skin: Intact, Warm, no rashes. HEENT: Normocephalic, Atraumatic. Normal neck range of motion, Supple. Trachea midline. Respiratory: Lungs are clear to auscultation, Breath sounds are equal bilaterally with equal chest expansion. Cardiovascular: RRR, normal S1, S2, No murmurs. Distal pulses 2+ Abdomen: Soft, positive bowel sounds, nondistended, no guarding, diffuse tenderness, ileostomy intact, with fecal material is noticed on the bag, no rebound, no masses. Rectal: Stage IV ulcer on the sacral area, with minimal serous drainage, good granulation tissue no bone exposure noted. Renal: CVA tenderness noted on the left. Musculoskeletal: No swelling, moving all 4 extremities with FROM Neurologic: Alert, Oriented, No focal deficits. Moving all 4 extremities spontaneously Psych: Thoughts linear and responses appropriate. Objective Labs 06/08/25 08:50 06/08/25 08:50 Labs: Laboratory Results - last 24 hr 06/08/25 08:50 WBC 4.9 RBC 3.27 L Hgb 9.1 L Hct 28.2 L MCV 86 MCH 27.8 MCHC 32.3 RDW Std Deviation 49.4 H Plt Count 350 Neut % (Auto) 50 Lymph % (Auto) 39 Dixie % (Auto) 8 Eos % (Auto) 2 Baso % (Auto) 0 Neut # (Auto) 2.5 Lymph # (Auto) 1.9 Dixie # (Auto) 0.4 Eos # (Auto) 0.1 Baso # (Auto) 0.0 Immature Gran # (Auto) 0.01 H Absolute Nucleated RBC 0.00 Immature Gran % 0 Nucleated RBC % 0 Sodium 141 Potassium 4.3 Chloride 109 H Carbon Dioxide 21.9 Anion Gap 10 BUN 12 Creatinine 0.9 Estim Creat Clear Calc 54.8 L eGFR > 60 BUN/Creatinine Ratio 13 Glucose 161 H Calculated Osmolality 283 Calcium 9.1 Corrected Calcium 9.4 Total Bilirubin 0.2 L AST 14 ALT 9 L Alkaline Phosphatase 124 H Total Protein 6.2 Albumin 3.6 Globulin 2.6 Albumin/Globulin Ratio 1.4 Quality Measures Quality Measures VTE prophylaxis Advance care planning discussed with:: patient Assessment & Plan Assessment Current Active Medications: Generic Name Dose Route Start Last Admin Trade Name Des PRN Reason Stop Dose Admin Acetaminophen 650 mg 06/08/25 09:49 Acetaminophen 325 Mg Tablet PO 07/06/25 18:32 Q6HR PRN Fever >100 or Pain 1-3 Clonazepam 1 mg 06/07/25 16:00 06/08/25 10:01 Clonazepam 0.5 Mg Tablet PO 06/12/25 15:59 1 mg QDAY DENISSE Administration Dextrose 25 ml 06/06/25 18:00 Dextrose 50%-Water Inj 50 Ml Syringe IV 07/06/25 17:59 Q15MIN PRN BG 50-70 responsive npo pt Dextrose 50 ml 06/06/25 18:00 Dextrose 50%-Water Inj 50 Ml Syringe IV 07/06/25 17:59 Q15MIN PRN BG <50 OR BG <70 & pt unresponsive Gabapentin 300 mg 06/06/25 21:00 06/08/25 10:01 Gabapentin 300 Mg Capsule PO 07/06/25 20:59 300 mg BID DENISSE Administration Glucagon 1 mg 06/06/25 18:00 Glucagon Inj 1 Mg Vial IM Q15MIN PRN BG <70, and no IV access Heparin Sodium (Porcine) 5,000 unit 06/07/25 09:00 06/08/25 10:00 Heparin Sod Inj 5000 Unit/Ml Vial SC 06/21/25 08:59 5,000 unit BID DENISSE Administration Ceftriaxone Sodium/Dextrose 1 gm in 50 mls @ 100 mls/hr 06/08/25 11:02 06/08/25 12:38 Rocephin/D5w 1gm Iv Premix IV 06/15/25 11:01 100 mls/hr QDAY DENISSE Administration Morphine Sulfate 2 mg 06/08/25 09:40 06/08/25 09:45 Morphine Sulf Inj 10 Mg/Ml Vial IVP 06/12/25 10:53 2 mg Q6H PRN Administration pain 7-10 Protocol Ondansetron HCl 4 mg 06/06/25 18:02 Ondansetron Inj 2 Mg/Ml Inj 2 Ml IVP 07/06/25 18:01 Q8HR PRN NAUSEA OR VOMITING Protocol Pantoprazole Sodium 40 mg 06/09/25 09:00 Pantoprazole 40 Mg Tablet PO 07/09/25 08:59 QDAY DENISSE Tramadol HCl 50 mg 06/08/25 09:49 06/08/25 12:39 Tramadol Hcl 50 Mg Tablet PO 06/13/25 09:39 50 mg Q4HR PRN Administration PAIN SCALE 4-10(Mod-Sev Trazodone HCl 50 mg 06/06/25 21:00 06/07/25 20:19 Trazodone Hcl 50 Mg Tablet PO 07/06/25 20:59 50 mg HS DENISSE Administration Plan Urinalysis suspicious for urinary tract infection although no bacteria seen but patient appears to have completed course of antibiotics within the last couple weeks. 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 CTAP: Absent gallbladder. renal arterial calcifications and 2 mm calcification right kidney Heavy abdominal aortic calcification Right ostomy Surgical defect anterior pelvis Atrophic uterus # Pyelonephritis CTAP: Edema involving both kidneys with minimal perinephric fat stranding. Findings most consistent with bilateral acute pyelonephritis. soft tissue defects posterior lower pelvis with bone destruction involving the coccygeal segments and a drain noted in a collapsed abscess + Left CVA tenderness on PE. Patient afebrile, no leukocytosis. Plan: -switched ABx to ceftriaxone 1g Qday -urine and blood ctx -CBC, CMP AM draw -IV morphine 2mg Q4h PRN -stopped -tramadol PO 50mg Q4h PRN for moderate to severe pain -acetaminophen 625mg PO Q6h PRN for pain scale 1-4 -trazodone 50mg HS -IVP ondansetran inj 4mg PRN #Stage IV pressure ulcer of sacral area Patient was recently reevaluated at [facility] for drainage lateral to ileostomy tube. Patient was told mesh was left behind from previous surgery and she does not have a fistula. Patient has outpatient follow-up with surgery in [facility] this week. Patient also underwent debridement of decubitus ulcer and appears to be healing well. on PE, there is minimal serous drainage, good granulation tissue, and no bone exposure. No purulence noted. According to surgical consult, not an inpatient surgery candidate. Patient is scheduled with a outpt plastic surgeon to evaluate her sacral wound for graft surgery at 1 o'cklock on Sunday. Needs to be discharged early enough on Sunday to make it to her appt. Dr Veliz, gen-surg consulted, her recommendations: Daily wet-dry dressings to abdominal and sacral wounds #T2DM patient on sliding scale insulin IV dextrose protocol if hypoglycemic #anxiety patient on clonazepam 1mg x1 Qday diphenhydrime (benedryl) 50mg HS PRN Health maintanance Diet: clear liquids PPx GI: Pantoprozole 40mg Qday PPx DVT: IVP heparin 5000u bid Code status: routine Case was discussed with attending physician, Dr. Bauman, and senior resident Dr. Hanoun. Caren Escalante DO PGY I Attending Provider Attestation/Addendum I have examined the patient, reviewed labs and imaging findings, discussed the case with the resident(s), and reviewed entered orders. I agree with the plan of care as outlined in this note, with these additional summaries/recommendations: After examination of the patient and review of the clinical data, I feel that this patient needs admission to the hospital for further treatment and evaluation. Patient is a 64-year-old female with a medical history of primary hypertension, [id number] diabetes mellitus type 2, GERD, hyperlipidemia, COPD, chronic pain, and history of SBO status post colostomy and decubitus ulcer who presents to [facility] emergency department on 06/06/2025 with chief complaint of severe abdominal and back pain. Patient seen at bedside. No acute overnight events. Patient and myself had a long conversation about her pain management. Discussed that we need to wean to oral medicines in anticipation of discharge. She is hesitant to stop the morphine and becomes emotional at times. She required 4 mg IV morphine during dressing change with general surgery today. She reports she previously followed a pain specialist and needs high doses of pain medicine. Discussed that we will continue home tramadol and keep the low-dose morphine on board for breakthrough pain. Ultimately Percocet or Clarion would be a better regimen for patient although she reports she develops severe hives after taking. I did ask to have family bring in home meds as I suspect patient may still have been taking Clarion or Percocet at home and can likely tolerate. Ultimately patient will need to reestablish with her pain management physician. We discussed that I am starting to get concerned that she is relying on IV pain medicines too much and may be developing opioid dependence. She showed understanding. Patient diagnosed with acute pyelonephritis. CT abdomen and pelvis showed edema involving both kidneys with minimal perinephric fat stranding. Interestingly urine and blood culture showed no growth although patient likely had recent antibiotics and culture results may be unreliable. Continue IV Rocephin. CT abdomen and pelvis also revealed soft tissue abscess inferior superior right pelvis with drainage catheter in place. Patient has appointment this week with surgery at [facility] and in house surgery following. Patient was evaluated by general surgery and wound is healing well. Continue home antihypertensives as tolerated. Continue insulin sliding scale for diabetes mellitus type 2. Breathing treatments as needed for history of COPD. Patient updated on the plan and in agreement. All questions answered to satisfaction. Please see residents note for additional details and management. Dr. Mitul MD
[2025-06-08 16:00] VITALS: BP 125/52; PULSE 83; PULSE 84; RESP 18; TEMP 36.2; O2SAT 98
[2025-06-08 20:00] VITALS: BP 132/64; PULSE 82; RESP 18; TEMP 36.6; O2SAT 94
[2025-06-09] VITALS: BP 113/60; PULSE 78; RESP 16; TEMP 36.2; O2SAT 97
[2025-06-09 04:00] VITALS: BP 155/72; PULSE 84; RESP 16; TEMP 36.1; O2SAT 95
[2025-06-09 06:18] LABS: Basophils # (Auto) 0.0 Thou/mm3 (0.0-0.2); Basophils % (Auto) 0 % (0-2.5); Eosinophils # (Auto) 0.1 Thou/mm3 (0.0-0.5); Eosinophils % (Auto) 2 % (0-10); Hematocrit 29.1 % (36.0-46.0); Hemoglobin 9.6 g/dL (12.0-16.0); Immature Granulocytes Auto 0.02 Thou/mm3 (0.00-0.00); Lymphocytes # (Auto) 2.2 Thou/mm3 (1.0-4.8); Lymphocytes % (Auto) 46 % (10-50); Mean Corpuscular HGB Conc 33.0 g/dl (31.0-37.0); Mean Corpuscular Hemoglobin 27.4 pg (25.0-35.0); Mean Corpuscular Volume 83 fL (80-100); Monocytes # (Auto) 0.4 Thou/mm3 (0.0-0.8); Monocytes % (Auto) 9 % (0-12); Neutrophils # (Auto) 2.1 Thou/mm3 (1.8-7.7); Neutrophils % (Auto) 43 % (37-80); Nucleated Red Blood Cell # 0.00 Thou/mm3 (0.00-0.00); Nucleated Red Blood Cell % 0 /100 WBC (0); Platelet Count 385 Thou/mm3 (140-440); RDW Standard Deviation 46.5 fL (36.4-46.3); Red Blood Count 3.51 Miln/mm3 (4.00-5.20); White Blood Count 4.8 Thou/mm3 (3.6-11.0)
[2025-06-09 06:37] LABS: Alanine Aminotransferase 8 U/L (10-49); Albumin, Serum 3.7 gm/dL (3.4-4.8); Albumin/Globulin Ratio 1.3 (1.2-2.2); Alkaline Phosphatase 113 U/L (46-116); Anion Gap 11 (7-16); Aspartate Amino Transferase 14 U/L (0-34); BUN/Creatinine Ratio 15 Ratio (12-20); Bilirubin,Total 0.2 mg/dL (0.3-1.2); Blood Urea Nitrogen 12 mg/dL (9-23); Calcium 9.1 mg/dL (8.3-10.6); Calcium (Corrected) 9.3 mg/dL (8.5-10.1); Carbon Dioxide 24.5 mMol/L (20.0-31.0); Chloride 107 mMol/L (98-107); Creatinine (Component) 0.8 mg/dL (0.6-1.3); Estimated Creatinine Clearance 61.6 mL/min (>60); Globulin 2.8 gm/dL (2.3-3.5); Glucose 119 mg/dL (74-106); Magnesium 1.8 mg/dL (1.6-2.6); Osmolality,Calculated 283 (275-295); Phosphorous 2.9 mg/dL (2.4-5.1); Potassium 4.5 mMol/L (3.4-5.1); Sodium 142 mMol/L (136-145); Total Protein 6.5 gm/dL (5.7-8.2); eGFR > 60 See Note
[2025-06-09 08:00] VITALS: BP 100/55; PULSE 17; PULSE 87; RESP 17; TEMP 36.6; O2SAT 96
[2025-06-09] MEDS: ACETAMINOPHEN 325 MG TABLET 650 MG PO (08:46)
[2025-06-09] MEDS: GABAPENTIN 300 MG CAPSULE PO (08:46)
[2025-06-09] MEDS: cefTRIAXone/D5w 1gm IV premix 1 GM/50 ML BAG IV (08:47)
[2025-06-09] MEDS: HEPARIN SOD INJ 5000 UNIT/ML VIAL SC (08:47)
[2025-06-09] MEDS: PANTOPRAZOLE 40 MG TABLET PO (08:48)
--- NOTE | 2025-06-09 09:11 | PC.CC ---
Addendum entered by Neal Chiang RN 06/09/25 18:58: hh ref sent to [facility]. waiting for response Original Note: 0911: received call from Susie [facility]inal/ [facility], pt is currently on service with them.
--- NOTE | 2025-06-09 13:24 | ESDS_ITS ---
<Statement entered by Ivonne Rao DO - 06/09/25 15:36> I, Ivonne Rao DO, attest that I was physically present for the jenkins portions of the service and evaluated the patient with the resident and I reviewed and discussed the case with the resident and agree with the resident's findings and plans of care as documented above Planned Discharge Date 06/09/25 DS: Providers Provider Date of admission: 06/06/25 17:36 Primary care physician: Sun Webb NP Admitting Provider: Srini Bauman MD Attending Provider on Admission: Srini Bauman MD Consults: 06/06/25 16:02 Consult to General Surgery Stat Comment: Healing pressure ulcer sacrum Consulting Provider: Susy Veliz 06/06/25 18:18 Referral Wound Care Routine Comment: 06/08/25 16:11 Referral OP Wound Healing Dept Routine Comment: Instructions: Sacral PI, ileostomy with LLQ surgical incision 06/08/25 16:13 Referral Nutritional Services Routine Comment: Instructions: Wounds Attending Provider on DC: Ivonne Rao DO Discharging Provider: Ivonne Rao DO Anticipated date of discharge: 06/09/25 DS: Diagnosis Problem List Completed Was Problem List Reviewed/Reconciled?: Yes Hospital Course Hospital Course Hospital course: Ariadna Albarran is a 64-year-old female patient with significant past medical history of CAD status post stent, PAD (s/p stents in bilateral femoral arteries, aorta, and ICA), hypertension, type 1 diabetes mellitus, dysphagia, and esophageal stricture status post dilatation x 2, recent ileostomy, 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 ED Course: Vitals on admission were T: 98.0, HR: 107, RR: 20, BP: 89/60, SPO2: 96 on RA. Physical exam was notable for abominal diffuse tenderness, Stage IV ulcer on the sacral area, with minimal serous drainage, good granulation tissue no bone exposure. Labs were notable for Plt 463, BUN 36, estimated creatinine clearance 44.4, eGFR 56, BUN/Cr 33, Glu 181, corrected calcium 10.2, phos 5.2, Alk phos 149, total protein 8.3, globulin 3.6, lipase 54 Imaging: Chest Xray: No active disease Abdomen/Pelvis CT: Findings most consistent with bilateral acute pyelonephritis, Again noted soft tissue large defect posterior pelvis, with bone destruction involving distal sacral and coccygeal segments, Drainage catheter is noted collapsed soft tissue abscess inferior superior right pelvis. Medications: Piper/Tazo 3.375, Ondansetron Inj 4mg, Morphine Inj 4mg IVP x2, DiphenhydrAMINE INJ 50mg IVP x1, NS 1L, LR 1L x2. Consults: General Surgery Hospital Course: The patients pyelonephritis resolved with antibiotics including IV zosyn which was switched to ceftriaxone 1g. Urine, MRSA nasal screen, and blood cxr came back negative and patient is asymptomatic, afebrile on discharge with po antibiotics for home. Pain was managed with IV morphine, tramadol, and acetaminophen which was tapered to tramadol and acetaminophen on discharge. As for her stage IV pressure ulcer, general surgery was consulted and patient received daily wet dressings to abdominal and sacral wounds. Patient has an appointment with plastic surgeon to evaluate her sacral wound for graft surgery today. The patients T2DM was managed with SSI and hypoglycemic protocol. Her anxiety was managed with clonazepam 1mg Qd, and diphenhydramine 50mg HS prn. Consults: Wound care, home health, nutritional services Discharge Instructions: Follow-up with PCP within 1-2 weeks of discharge. * Recommended follow-up with plastic surgery regarding sacral wound. * Continue taking AUGMENTIN twice daily for 4 more days * Continue taking medications as prescribed below. * Return to Emergency Room if symptoms persist, worsen, or new symptoms develop. * Follow up at [facility], [address] [place] [address]. Call [phone] for appointment. * Wound care: 1) Stage 4 to sacrum, surgical incision to right buttocks with linda drain: irrigate both incision and pressure injury with 1/4th st dakins solution, pat dry. Moistened small rolled gauze with dakins solution and pack pressure injury. Cover both sacrum and right buttocks with allyven dressings daily and PRN for falling off or soiling. Side to side repositioning except for meals 2) Surgical incision to left abdomen: irrigate well with 1/4 st dakins solution, pat dry. Moisten small gauze fluff with dakins solution and pack wound. Cover with dry fluff and medipore tape. Change daily and PRN for falling off or soiling. 3) RLQ ileostomy (approx 41mm oval): Pouching system changed 06/08. If leaking remove pouch, cleanse well with warm water (no skin wipes). Cut wafer to size with opening close to wafers edge. Warm under arm or between hands until sticky and plyable. Apply stoma paste or ring to skin than apply warm wafer. Rubbing adhesive wafter with light pressure to ensure good adherance. Change Weekly on Sunday and PRN for falling off or soiling. Problem list: # Pyelonephritis (resolved) #Stage IV pressure ulcer of sacral area #T2DM #anxiety Case and Plan discussed with my attending physician, Dr. Rao , and my senior resident, Dr. Lindsay Eason, [facility] Time Spent with Patient Time attestation: Total time spent providing and/or coordinating discharge services: Time spent: Greater than 30 minutes Exam Vital Signs Temp Pulse Resp BP Pulse Ox O2 Del Method 97.8 F 17 L 17 100/55 L 96 Room Air 06/09/25 08:00 06/09/25 08:00 06/09/25 08:00 06/09/25 08:00 06/09/25 08:00 06/09/25 08:00 Narrative Exam General: Alert and oriented x3, No apparent distress. Skin: Intact, Warm, no rashes. HEENT: Normocephalic, Atraumatic. Normal neck range of motion, Supple. Trachea midline. Respiratory: Lungs are clear to auscultation, Breath sounds are equal bilaterally with equal chest expansion. Cardiovascular: RRR, normal S1, S2, No murmurs. Distal pulses 2+ Abdomen: Soft, positive bowel sounds, nondistended, no guarding, diffuse tenderness, ileostomy intact, with fecal material is noticed on the bag, no rebound, no masses. Rectal: Stage IV ulcer on the sacral area, with minimal serous drainage, good granulation tissue no bone exposure noted. Musculoskeletal: No swelling, moving all 4 extremities with FROM Neurologic: Alert, Oriented, No focal deficits. Moving all 4 extremities spontaneously Psych: Thoughts linear and responses appropriate. Discharge Plan Plan Patient Disposition: HOME (Self Care) Patient condition on transfer: Stable Care Plan Goals: * Follow-up with PCP within 1-2 weeks of discharge. * Recommended follow-up with plastic surgery regarding sacral wound. * Continue taking AUGMENTIN twice daily for 4 more days * Continue taking medications as prescribed below. * Return to Emergency Room if symptoms persist, worsen, or new symptoms develop. * Follow up at [facility], [address] [place] [address]. Call [phone] for appointment. * Wound care: 1) Stage 4 to sacrum, surgical incision to right buttocks with linda drain: irrigate both incision and pressure injury with 1/4th st dakins solution, pat dry. Moistened small rolled gauze with dakins solution and pack pressure injury. Cover both sacrum and right buttocks with allyven dressings daily and PRN for falling off or soiling. Side to side repositioning except for meals 2) Surgical incision to left abdomen: irrigate well with 1/4 st dakins solution, pat dry. Moisten small gauze fluff with dakins solution and pack wound. Cover with dry fluff and medipore tape. Change daily and PRN for falling off or soiling. 3) RLQ ileostomy (approx 41mm oval): Pouching system changed 06/08. If leaking remove pouch, cleanse well with warm water (no skin wipes). Cut wafer to size with opening close to wafers edge. Warm under arm or between hands until sticky and plyable. Apply stoma paste or ring to skin than apply warm wafer. Rubbing adhesive wafter with light pressure to ensure good adherance. Change Weekly on Sunday and PRN for falling off or soiling. Prescriptions/Referrals Prescriptions/Med Rec: New amoxicillin-pot clavulanate [Augmentin] 500-125 mg tablet 1 tab PO BID Qty: 8 0RF Continued gabapentin 300 mg Capsule 300 mg PO BID clonazepam 1 mg tablet 1 mg PO BID Patient Comments: TAKE 1 TABLET BY MOUTH TWICE A DAY NEEDED FOR ANXIETY trazodone 50 mg Tablet 50 mg PO HS Qty: 30 0RF pantoprazole 40 mg Tablet,Delayed Release (Dr/Ec) 40 mg PO BID Qty: 90 0RF acetaminophen-codeine 300-30 mg tablet 2 tab PO Q8H MDD 6 PRN (Reason: pain) Qty: 20 0RF oxycodone-acetaminophen [Percocet] 5-325 mg tablet 2 tab PO Q8H MDD 6 PRN (Reason: pain) Qty: 20 0RF ondansetron 4 mg tablet,disintegrating 4 mg PO Q8H PRN (Reason: nausea and vomiting) Qty: 10 0RF Referrals: Sun Webb [employer] [facility] [Primary Care Provider] - Patient/Caregiver Discharge Instructions Education Materials: Nutrition for Wound Healing, Anatomy of the Female Urinary Tract, Understanding Urinary Tract ..., Pressure Injury Dc, Kidney Infec Dc, Wound Care Dc, Ileostomy: Caring For Your Stoma, Ileostomy: Changing Your Pouch, Preventing Surgical Site Infections, When to Use Antibiotics, ED Pyelonephritis, Female (Adult) Print Language: Welsh Stand Alone Forms: [facility]i Award Info., Patient Portal Info Letter Discharge Order Discharge Orders: Discharge (Routine); Ordered 06/09/25 Ordered By: Fab Fishman Quality Discharge Quality Measures VTE prophylaxis (Heparin 5000u bid)
--- NOTE | 2025-06-11 13:35 | PC.CC ---
per [facility], jeni 06/11
== END 2025-06-09 10:53 | disposition home or self-care (01) | DRG 689 ==
LOC: SERX 16:34 → SERHOLD 18:08 → S3NX 18:51 → S2NX 06-07 00:45 → S3SX 06-08 18:44
PROVIDERS: Nurse Practitioner Family; Admitting Provider Student in an Organized Health Care Education/Training Program; Emergency Provider Family Medicine; PCP Nurse Practitioner Family; Visit Provider Student in an Organized Health Care Education/Training Program
DX: N10 Acute pyelonephritis (principal); L89.154 Pressure ulcer of sacral region, stage 4; I47.20 Ventricular tachycardia, unspecified; I25.10 Atherosclerotic heart disease of native coronary artery without angina pectoris; I10 Essential (primary) hypertension; I70.0 Atherosclerosis of aorta; J44.9 Chronic obstructive pulmonary disease, unspecified; F41.9 Anxiety disorder, unspecified; Z95.5 Presence of coronary angioplasty implant and graft; Z79.4 Long term (current) use of insulin; Z93.3 Colostomy status; Z98.1 Arthrodesis status; E10.9 Type 1 diabetes mellitus without complications; E78.5 Hyperlipidemia, unspecified; L89.309 Pressure ulcer of unspecified buttock, unspecified stage; Z79.84 Long term (current) use of oral hypoglycemic drugs
CPT/HCPCS: 36415; 71045; 74177; 80053; 81001; 83605; 83615; 83690; 83735; 83880; 84100; 84145; 84443; 84484; 85025; 85610; 85730; 86140; 87040; 87081; 87086; 93225; 96361; 96365; 96376; A4649; J0696; J1200; J1644; J2270; J2405; J2470; J2543; J3475; J7030; J7120; Q9967; A9270

== ENCOUNTER 2025-06-12 21:06 | Inpatient (IN) | payer MEDICARE, BC, SELFPAY ==
[2025-06-12 21:21] VITALS: BP 90/55; PULSE 99; RESP 19; TEMP 36.6; O2SAT 98
--- NOTE | 2025-06-12 21:28 | PD.EDABDPN ---
ED Abdominal Pain RME/HPI General Chief Complaint: General Adult/Misc Complain Stated complaint: GENERALIZED ILLNESS Time seen by provider: 06/12/25 22:06 Arrival date/time: 06/12/25 21:06 RME / HPI RME / HPI narrative: This section includes all my notes and documentations, including HPI, PE, and ED course. Myron Baker MD HPI: 64 y/o female with Hx of Type II DM and Ileostomy BIBA from home presents with severe abdominal pain and butt pain x several days. And diarrhea in ileostomy bag. And severe low back pain where her stage IV decubitus ulcer is located. Family reports confusion. No other complaints. ROS: All negative except as documented in HPI. Physical Exam: General: Alert and oriented. Appearance of malaise noted. In severe pain. Eyes: Conjunctivae and lids clear. EOMI. PERRL. ENT: No nasal congestion. Neck: Supple. No carotid bruit. No JVD. Heart: RRR. Lungs: No respiratory distress. Good air movement. No rhonchi, wheezing, rales. Abdomen: Soft with tenderness, difficult to localize, lower quadrants seem to be worse. Normal bowel sounds. No distension. No rebound or guarding. Back: No CVA tenderness. Legs: No clubbing, cyanosis, edema. Skin: Warm and dry. Stage IV sacral ulcer noted. Neuro: Alert and oriented X 3. Cranial Nerves II-XII grossly intact. No peripheral motor deficits. I reviewed EMS notes. I reviewed all diagnostic test results: My review of the Chest/Abdomen/Pelvis CT report is: Large soft tissue defect posterior pelvis on the right side, no fluid-filled drainable abscess. Blood tests remarkable for ESR 75, Cr 1.5, amylase 160, and lipase 193. UA showed positive leukocyte Estrace, 8 RBC, 83 WBC, and no epithelial cells. Covid/Influenza: Negative. At this point, diagnoses include: Dehydration, Ileostomy in place, UTI, Decubitus ulcer of sacral region stage IV, and diarrhea. Treatment here included: IV fluid, Zofran, morphine, Dilaudid, and Rocephin. I discussed the case with our hospitalist. About the presentation and exam and diagnostics and treatments here. And need of further care in the hospital. Will accept the patient. Myron Baker MD Related Data Home Medications ?Medication ?Instructions ?Recorded ?Confirmed gabapentin 300 mg capsule 300 mg PO BID 10/19/24 06/13/25 clonazepam 1 mg tablet 1 mg PO BID 01/29/25 06/13/25 tramadol 50 mg tablet 50 mg PO BID PRN pain 06/13/25 06/13/25 Previous Rx's ?Medication ?Instructions ?Recorded pantoprazole 40 mg tablet,delayed 40 mg PO BID #90 tabs 02/05/25 release trazodone 50 mg tablet 50 mg PO HS #30 tabs 02/05/25 acetaminophen 300 mg-codeine 30 mg 2 tab PO Q8H PRN pain #20 tabs 02/15/25 tablet ondansetron 4 mg disintegrating 4 mg PO Q8H PRN nausea and 02/18/25 tablet vomiting #10 tabs amoxicillin 500 mg-potassium 1 tab PO BID #8 tabs 06/09/25 clavulanate 125 mg tablet (Augmentin) Held on 06/13/25. Instructions: Order Change Allergies Allergy/AdvReac Type Severity Reaction Status Date / Time codeine Allergy Severe HIVES Verified 02/18/25 07:34 hydrocodone Allergy Severe RASH AND Verified 02/18/25 07:34 SWELLING Iodinated Contrast Media Allergy Severe Hives Verified 02/18/25 07:34 Review of Systems Review of Systems Systems Reviewed: All systems reviewed, normal except as documented Past Medical History Past Medical History NEUROLOGIC: Positive Neurological Disorders, Cerebrovascular Accident and Transient Ischemic Attacks (TIA) CARDIAC: Positive Cardiac Disorders ([place] x 2), Myocardial Infarction, Coronary Artery Disease, Hypercholesterolemia and Hypertension GASTROINTESTINAL: Positive Gastrointestinal Disorders, Colitis, Diverticulitis, Diverticulosis and Gastroesophageal Reflux Disease REPRODUCTIVE: Positive Previous Pregnancies MUSCULOSKELETAL: Positive Musculoskeletal Disorders, Arthritis and Carpal Tunnel Syndrome ENDOCRINE: Positive Endocrine Disorders, Diabetes Mellitus Type 2 and Hyperthyroidism PSYCHO/SOCIAL: Positive Anxiety OTHER HISTORY: Positive Falls and Chicken Pox Family History FAMILY HISTORY: Positive Family Cancer Surgical History SURGICAL: Positive Cardiac Surgery, Coronary Stent, Tonsillectomy, Tubal Ligation and Section Social History SMOKING STATUS: Former smoker SECOND HAND EXPOSURE: Yes ED Exam Narrative Physical exam: Refer to HPI Course Quality Measures none Orders Category Date Time Status Admit to Inpatient Status Routine Admission 06/13/25 01:26 Active Patient Condition Routine Admission 06/13/25 01:18 Ordered Bedside COVID-19 Antigen Test NOW Care 06/12/25 22:10 Active Bedside Influenza A&B Antigen Test NOW Care 06/12/25 22:10 Completed COVID-19 Screening Questionnaire NOW Care 06/13/25 01:14 Active Decision to Admit X1 Care 06/13/25 01:14 Completed Notify provider NEEDED Care 06/13/25 01:18 Active Saline [Insert IV] NOW Care 06/12/25 22:10 Active Straight [In and Out Catheter] X1 Care 06/12/25 22:[address] chest abdomen pelvis wo Stat Exams 06/12/25 22:10 Completed Amylase Stat Lab 06/12/25 23:05 Completed Bilirubin,Direct Stat Lab 06/12/25 23:05 Completed Blood Culture (Lab) Stat Lab 06/12/25 22:25 Received CBC Stat Lab 06/12/25 22:25 Completed CMP [Comprehensive Metabolic Panel] Stat Lab 06/12/25 23:05 Completed CRP [C-Reactive Protein] Stat Lab 06/12/25 23:05 Completed ESR [Sed Rate (ESR)] Stat Lab 06/12/25 22:25 Completed Lactate (Lactic Acid) Stat Lab 06/12/25 22:25 Completed Lipase Stat Lab 06/12/25 23:05 Completed Magnesium Stat Lab 06/12/25 23:05 Completed Procalcitonin Stat Lab 06/12/25 23:05 Completed UA, C/S IF [Urinalysis, C/S if Indicated] Stat Lab 06/12/25 23:51 Completed Urine Culture Stat Lab 06/12/25 23:51 Received HYDROmorphone INJ [Dilaudid Inj] Med 06/12/25 23:46 Discontinued 1 mg IVP X1 ONE Morphine Inj Med 06/12/25 22:10 Discontinued 4 mg IVP X1 ONE Ondansetron Inj [Zofran Inj] Med 06/12/25 22:10 Discontinued 4 mg IVP X1 ONE Sodium Chloride 0.9% 1000 ml [Ns] 1,000 ml Med 06/12/25 22:10 Discontinued IV 999 mls/hr Sodium Chloride 0.9% 1000 ml [Ns] 1,000 ml Med 06/13/25 00:04 Discontinued IV 999 mls/hr cefTRIAXone/D5w 1gm IV premix [Rocephin/D5w 1gm IV Med 06/13/25 00:58 Discontinued premix] 1 gm in 50 ml IV X1 Code Status Routine Oth 06/13/25 01:18 Ordered Vital Signs Vital signs: Vital Signs Temperature 98 F 06/12/25 21:21 Pulse Rate 99 06/12/25 21:21 Respiratory Rate 19 06/12/25 21:21 Blood Pressure 90/55 L 06/12/25 21:21 Pulse Oximetry (%) 98 06/12/25 21:21 Abdominal Pain MDM MDM Narrative MDM Narrative:: Scribe Attestation: Sigrid Sahni, am scribing for and in the presence of Dr. Baker. Provider Notation: Although this document has been carefully reviewed, there may still be some phonetic and other typographical errors.? These errors are purely grammatical due to imperfections in the software program and should not be construed in any way to? compromise the substance of the patient's medical care during this visit. 64 y/o female with Hx of Type II DM and Ileostomy BIBA from home presents with severe abdominal pain and butt pain x several days. Denies fever. No other complaints. Patient data External records reviewed:: [facility] previous records (Reviewed prior ED records from 06/06/25. Patient was seen for Acute pyelonephritis.) and EMS form Clinical information provided by:: patient and EMS Social determinants that could affect healthcare access:: none Patient has the following chronic illnesses:: Cerebrovascular Accident, Transient Ischemic Attacks (TIA), Myocardial Infarction, Coronary Artery Disease, Hypercholesterolemia, Hypertension, Colitis, Diverticulitis, Diverticulosis, Gastroesophageal Reflux Disease, Arthritis, Carpal Tunnel Syndrome, Diabetes Mellitus Type 2, Hyperthyroidism, Anxiety How is presenting disease/condition affected by chronic disease/condition?: exacerbated by Evaluation data The following diagnostics were reviewed and interpreted by me:: lab results and radiology exam(s) Lab and/or radiology exams considered but not ordered:: None Interpretation Summary: I reviewed all diagnostic test results: My review of the Chest/Abdomen/Pelvis CT report is: Large soft tissue defect posterior pelvis on the right side, no fluid-filled drainable abscess. Blood tests remarkable for ESR 75, Cr 1.5, amylase 160, and lipase 193. UA showed positive leukocyte Estrace, 8 RBC, 83 WBC, and no epithelial cells. Covid/Influenza: Negative. Medications / Prescriptions Medications or Prescriptions considered but not ordered:: None Medication administrations:: Medication Administration History Acetaminophen (Acetaminophen 325 Mg Tablet) 650 mg PO Q6H PRN PRN Reason: Fever >100.5 or pain Stop: 07/13/25 01:28 Albuterol (Albuterol Rt 2.5 Mg/0.5 Ml Nebu) 2.5 mg INH Q2HR PRN PRN Reason: SHORTNESS OF BREATH OR WHEEZE Stop: 07/13/25 01:28 Dextrose (Dextrose 50%-Water Inj 50 Ml Syringe) 50 ml IV Q15MIN PRN PRN Reason: BG <50 OR BG <70 & pt unresponsive Stop: 07/13/25 05:21 Glucagon (Glucagon Inj 1 Mg Vial) 1 mg IM Q15MIN PRN PRN Reason: BG <70, and no IV access Heparin Sodium (Porcine) (Heparin Sod Inj 5000 Unit/Ml Vial) 5,000 unit SC BID [facility] Stop: 06/27/25 01:44 Last Admin: 06/13/25 08:01 Dose: 5,000 unit Documented By: PP Co-signed By: YOGI Admin: 06/13/25 03:14 Dose: 5,000 unit Documented By: DT Co-signed By: Hydromorphone HCl (Hydromorphone Inj 2 Mg/Ml Vial) 0.5 mg IVP Q4HR PRN PRN Reason: BREAKTHROUGH PAIN Stop: 06/18/25 01:28 Last Admin: 06/13/25 15:37 Dose: 0.5 mg Documented By: HUGH Insulin Human Lispro (Insulin Lispro (Admelog) 1 Unit/0.01 Ml Unit) 0 unit SC AC [facility]; Protocol Stop: 07/13/25 07:29 Last Admin: 06/13/25 17:29 Dose: 1 unit Documented By: PP Co-signed By: INEZ Admin: 06/13/25 12:10 Dose: 1 unit Documented By: PP Co-signed By: INEZ Admin: 06/13/25 07:58 Dose: Not Given Documented By: PP Non-Admin Reason: Per Protocol Ondansetron HCl (Ondansetron Inj 2 Mg/Ml Inj 2 Ml) 4 mg IVP Q6H PRN; Protocol PRN Reason: NAUSEA OR VOMITING Stop: 07/13/25 01:28 Last Admin: 06/13/25 01:52 Dose: 4 mg Documented By: DT Oxycodone/Acetaminophen (Oxycodone/Apap 5/325 Tablet) 1 tab PO Q6H PRN PRN Reason: PAIN SCALE 4-10(Mod-Sev Stop: 06/18/25 01:28 Last Admin: 06/13/25 13:21 Dose: 1 tab Documented By: Admin: 06/13/25 04:40 Dose: 1 tab Documented By: ORACIO Pantoprazole Sodium (Pantoprazole Inj 40 Mg Vial) 40 mg IVP QDAY DENISSE Stop: 07/13/25 08:59 Last Admin: 06/13/25 08:00 Dose: 40 mg Documented By: PP Sodium Chloride (Sodium Chloride Rt Naomi 0.9% 3 Ml Nebu) 3 ml INH PRN PRN PRN Reason: SOLN Stop: 07/13/25 01:28 Discontinued Medications Acetaminophen (Acetaminophen 325 Mg Tablet) 650 mg PO Q6H PRN PRN Reason: Fever >100.5 or pain Stop: 07/13/25 01:28 Diphenhydramine HCl (Diphenhydramine Inj 50 Mg/Ml Vial) 12.5 mg IVP X1 ONE Stop: 06/13/25 01:37 Last Admin: 06/13/25 01:55 Dose: 12.5 mg Documented By: ORACIO Diphenhydramine HCl (Diphenhydramine 25 Mg Capsule) 25 mg PO X1 ONE Stop: 06/13/25 19:36 Hydromorphone HCl (Hydromorphone Inj 2 Mg/Ml Vial) 1 mg IVP X1 ONE Stop: 06/12/25 23:47 Last Admin: 06/12/25 23:54 Dose: 1 mg Documented By: ORACIO Hydromorphone HCl (Hydromorphone Inj 2 Mg/Ml Vial) 0.5 mg IVP Q4HR PRN PRN Reason: BREAKTHROUGH PAIN Stop: 06/18/25 01:28 Last Admin: 06/13/25 10:44 Dose: 0.5 mg Documented By: Admin: 06/13/25 06:12 Dose: 0.5 mg Documented By: Admin: 06/13/25 01:54 Dose: 0.5 mg Documented By: ORACIO Sodium Chloride (Ns) 1,000 mls @ 999 mls/hr IV .Q1H1M ONE Stop: 06/12/25 23:10 Last Infusion: 06/13/25 00:04 Dose: Infused Documented By: Admin: 06/12/25 22:51 Dose: 999 mls/hr Documented By: DT Sodium Chloride (Ns) 1,000 mls @ 999 mls/hr IV .Q1H1M ONE Stop: 06/13/25 01:04 Last Infusion: 06/13/25 01:17 Dose: Infused Documented By: Admin: 06/13/25 00:15 Dose: 999 mls/hr Documented By: DT Ceftriaxone Sodium/Dextrose (Rocephin/D5w 1gm Iv Premix) 1 gm in 50 mls @ 100 mls/hr IV X1 ONE Stop: 06/13/25 01:27 Last Infusion: 06/13/25 01:40 Dose: Infused Documented By: Admin: 06/13/25 01:10 Dose: 100 mls/hr Documented By: DT Lactated Ringer's (Lactated Ringers) 1,000 mls @ 999 mls/hr IV .Q1H1M ONE Stop: 06/13/25 02:32 Last Infusion: 06/13/25 03:24 Dose: Infused Documented By: Admin: 06/13/25 01:57 Dose: 999 mls/hr Documented By: DT Lactated Ringer's (Lactated Ringers) 1,000 mls @ 100 mls/hr IV .Q10H ONE Stop: 06/13/25 17:42 Last Admin: 06/13/25 07:58 Dose: 100 mls/hr Documented By: PP Magnesium Sulfate (Magnesium Sulfate Ivpb) 4 gm in 50 mls @ 12.5 mls/hr IV X1 ONE Stop: 06/13/25 15:01 Last Admin: 06/13/25 12:50 Dose: 12.5 mls/hr Documented By: PP Magnesium Sulfate (Magnesium Sulfate Ivpb) 2 gm in 50 mls @ 25 mls/hr IV X1 ONE Stop: 06/13/25 17:59 Last Admin: 06/13/25 16:25 Dose: 25 mls/hr Documented By: PP Loperamide HCl (Loperamide 2 Mg Capsule) 4 mg PO X1 ONE Stop: 06/13/25 01:30 Last Admin: 06/13/25 01:56 Dose: 4 mg Documented By: DT Morphine Sulfate (Morphine Sulf Inj 10 Mg/Ml Vial) 4 mg IVP X1 ONE Stop: 06/12/25 22:11 Last Admin: 06/12/25 22:28 Dose: 4 mg Documented By: DT Ondansetron HCl (Ondansetron Inj 2 Mg/Ml Inj 2 Ml) 4 mg IVP X1 ONE; Protocol Stop: 06/12/25 22:11 Last Admin: 06/12/25 22:31 Dose: 4 mg Documented By: DT Treatment here from me included: IV fluid, Zofran, morphine, Dilaudid, and Rocephin. Consultations Consultation(s) initiated? (list below): Yes Consultation #1 (Physician, Specialty, Details): I discussed the case with our hospitalist. About the presentation and exam and diagnostics and treatments here. And need of further care in the hospital. Will accept the patient. Diagnosis Differential diagnosis abdominal pain: abdominal pain, calculus of kidney, constipation, diverticulitis, small bowel obstruction and other (Pyelonephritis) Most likely diagnosis given after review of the tests above:: Dehydration, Ileostomy in place, UTI, Decubitus ulcer of sacral region stage IV, and diarrhea. Admission Indicated Admission indicated?: indicated Explain why admission is indicated or not indicated:: Dehydration, Ileostomy in place, UTI, Decubitus ulcer of sacral region stage IV, and diarrhea. Admission Request Was there a request for admission?: Yes Admission Attestation Admission request attestation: Discussed case with Hospitalist service regarding admission. Discussed patients ED course, exam findings, labs, and radiology results. The Hospitalist [agrees] to accept the patient for admission. Disposition Plan Disposition Plan: Admit Discharge Plan Plan Patient Disposition: Admit Acute Care w/in Hospital Problem List Clinical Impression: Dehydration, UTI (urinary tract infection), Ileostomy in place, Decubitus ulcer of sacral region, stage 4, Diarrhea
[2025-06-12 21:57] VITALS: PULSE 90; RESP 14; O2SAT 98; BMI 24.8
[2025-06-12 22:01] VITALS: BP 106/63; PULSE 103; RESP 18; O2SAT 99
--- NOTE | 2025-06-12 22:10 | XR_ITS ---
Examination: CT chest, without intravenous contrast. CT abdomen, without intravenous contrast. CT pelvis, without intravenous contrast. 2-D sagittal and coronal reconstructions. 3-D reconstructions. Date and time of exam:June 12, 2025 10:41 PM Comparison June 06, 2025 CTDI vol (mgy) 8.80 DLP (MGycm)643 Technique: Multiple CT images, 3.0 mm slice thickness, obtained chest, abdomen, pelvis, with the high-resolution 64 slice scanner.. Sagittal and coronal 2-D reconstructions are obtained. 3-D reconstructions Low dose protocols were performed. One or more of the following dose reduction techniques were used; automated exposure control, adjustment of the mA and/or KV according to patient size, use of iterative reconstruction technique. Findings: Thoracic aortic calcification and no aneurysmal dilatation Trace pericardial effusion No paratracheal tracheobronchial for bronchopulmonary adenopathy Atelectasis in the lower lung zones No visualized liver splenic lesion Absent gallbladder No pancreatic mass Renal arterial calcifications Dense abdominal aortic calcification no aneurysmal dilatation: Aortoiliac stent No bowel obstruction Right ostomy No diverticulitis No pelvic mass Again noted large soft tissue ulcer defect posterior pelvis to the right of the sacrum without soft tissue abscess Urinary bladder intact Lumbar fusion with transpedicular fixation screws L3-S1 IMPRESSION: No mediastinal lymphadenopathy No pneumonia pulmonary edema or pleural disease Dense abdominal aortic calcification with aortic iliac stent but no aneurysmal dilatation Right ostomy No bowel obstruction Large soft tissue defect posterior pelvis on the right side, no fluid-filled drainable abscess
[2025-06-12] MEDS: MORPHINE SULF INJ 10 MG/ML VIAL 4 MG IVP (22:28)
[2025-06-12] MEDS: ONDANSETRON INJ 2 MG/ML INJ 2 ML 4 MG IVP (22:31)
[2025-06-12 22:32] LABS: Lactate (Lactic Acid) 2.3 mMol/L (0.4-2.0)
[2025-06-12 22:37] LABS: Basophils # (Auto) 0.0 Thou/mm3 (0.0-0.2); Basophils % (Auto) 0 % (0-2.5); Eosinophils # (Auto) 0.1 Thou/mm3 (0.0-0.5); Eosinophils % (Auto) 1 % (0-10); Hematocrit 34.8 % (36.0-46.0); Hemoglobin 11.6 g/dL (12.0-16.0); Immature Granulocytes Auto 0.01 Thou/mm3 (0.00-0.00); Lymphocytes # (Auto) 3.3 Thou/mm3 (1.0-4.8); Lymphocytes % (Auto) 35 % (10-50); Mean Corpuscular HGB Conc 33.3 g/dl (31.0-37.0); Mean Corpuscular Hemoglobin 27.7 pg (25.0-35.0); Mean Corpuscular Volume 83 fL (80-100); Monocytes # (Auto) 0.8 Thou/mm3 (0.0-0.8); Monocytes % (Auto) 8 % (0-12); Neutrophils # (Auto) 5.1 Thou/mm3 (1.8-7.7); Neutrophils % (Auto) 55 % (37-80); Nucleated Red Blood Cell # 0.00 Thou/mm3 (0.00-0.00); Nucleated Red Blood Cell % 0 /100 WBC (0); Platelet Count 458 Thou/mm3 (140-440); RDW Standard Deviation 47.7 fL (36.4-46.3); Red Blood Count 4.19 Miln/mm3 (4.00-5.20); White Blood Count 9.3 Thou/mm3 (3.6-11.0)
[2025-06-12 22:51] LABS: Sed Rate (ESR) 75 mm/hr (0-30)
[2025-06-12] MEDS: SODIUM CHLORIDE 0.9% 1000 ML 1,000 ML 999 ML IV (22:51)
[2025-06-12 23:37] VITALS: BP 105/53; PULSE 84; RESP 13; O2SAT 100
[2025-06-12 23:47] LABS: Alanine Aminotransferase 11 U/L (10-49); Albumin, Serum 4.3 gm/dL (3.4-4.8); Albumin/Globulin Ratio 1.3 (1.2-2.2); Alkaline Phosphatase 138 U/L (46-116); Amylase 160 U/L (30-118); Anion Gap 13 (7-16); Aspartate Amino Transferase 12 U/L (0-34); BUN/Creatinine Ratio 27 Ratio (12-20); Bilirubin,Direct < 0.1 mg/dL (0.0-0.3); Bilirubin,Total 0.2 mg/dL (0.3-1.2); Blood Urea Nitrogen 41 mg/dL (9-23); C-Reactive Protein 0.9 mg/dL (0.0-0.9); Calcium 9.6 mg/dL (8.3-10.6); Calcium (Corrected) 9.6 mg/dL (8.5-10.1); Carbon Dioxide 21.2 mMol/L (20.0-31.0); Chloride 106 mMol/L (98-107); Creatinine (Component) 1.5 mg/dL (0.6-1.3); Estimated Creatinine Clearance 32.3 mL/min (>60); Globulin 3.4 gm/dL (2.3-3.5); Glucose 161 mg/dL (74-106); Lipase 193 U/L (12-53); Magnesium 1.6 mg/dL (1.6-2.6); Osmolality,Calculated 292 (275-295); Potassium 4.7 mMol/L (3.4-5.1); Procalcitonin 0.07 ng/ml (0.0-0.49); Sodium 140 mMol/L (136-145); Total Protein 7.7 gm/dL (5.7-8.2); eGFR 38 See Note
[2025-06-12] MEDS: HYDROmorphone INJ 2 MG/ML VIAL 1 MG IVP (23:54)
[2025-06-12 23:57] LABS: Collection Type, Urine Clean Catch
[2025-06-13] VITALS (10 sets, daily range): BP systolic 95–145; BP diastolic 49–108; PULSE 78–89; RESP 12–96; TEMP 36.1–37; O2SAT 95–99; BMI 26.6
[2025-06-13 00:05] LABS: Bilirubin,Urine Negative (Negative); Blood,Urine Negative (Negative); Clarity,Urine Turbid (Clear/Hazy); Color,Urine Lt-Yellow (Lt Yel-Yel); Glucose, Urine Negative (Negative); Hyaline Casts,Urine 5 /hpf (0-1); Ketones,Urine Negative (Negative); Leukocyte Esterase,Urine Positive (Negative); Nitrite,Urine Negative (Negative); PH,Urine 5.5 (5.0-7.0); Protein,Urine Trace (Neg - Trace); RBC,Urine 8 /hpf (0-3); Specific Gravity,Urine 1.018 (1.001-1.035); Squamous Epithelial Cell,Urine 1 /hpf (0-5); Urobilinogen,Urine Negative mg/dL (0.0-1.0); WBC,Urine 83 /hpf (0-5)
[2025-06-13 00:08] LABS: Culture Indicated,Urine Yes
[2025-06-13] MEDS: SODIUM CHLORIDE 0.9% 1000 ML 1,000 ML 999 ML IV (00:15)
[2025-06-13] MEDS: cefTRIAXone/D5w 1gm IV premix 1 GM/50 ML BAG IV (01:10)
[2025-06-13 01:30] LABS: Reflex Lactate? Y
[2025-06-13 01:49] LABS: Lactic Acid, 3 HR 1.5 mMol/L (0.4-2.0)
[2025-06-13] MEDS: ONDANSETRON INJ 2 MG/ML INJ 2 ML 4 MG IVP (01:52)
[2025-06-13] MEDS: HYDROmorphone INJ 2 MG/ML VIAL 0.5 MG IVP ×6 (01:54→23:54)
[2025-06-13] MEDS: LOPERAMIDE 2 MG CAPSULE 4 MG PO (01:56)
[2025-06-13] MEDS: RINGERS LACTATED 1000 ML 1,000 ML 999 ML IV (01:57)
--- NOTE | 2025-06-13 02:05 | ESHP_ITS ---
Documentation for date of: 06/13/25 [facility] History of Present Illness Chief complaint: weakness and confusion History of present illness: A 64-year-old female with past medical history significant for PA x2, coronary artery disease (status post aortic iliac stent placement), peripheral artery disease, hypertension, type 2 diabetes mellitus, dysphasia, esophageal stricture, ileostomy, and stage IV sacral pressure ulcer presented with complaints of weakness and confusion. The patient reported increased pain in the sacral pressure ulcer, which she attributes to a long car ride to [place] earlier today. Upon returning to [place], her family ( and daughter) noted confusion and observed her attempting to start her walker as though it were a car. Patient also mentioned that she talked to her surgeon in [facility] regarding more output into ileostomy today and was advised to take Metamucil to slow the output but she got confused before taking the Metamucil. The patient also reported feeling dizziness, attributing it to insufficient hydration, as she predominantly drinks Gatorade and crystal scooter instead of water. She endorsed abdominal pain localized to the area around the ileostomy bag but denies dysuria. ED Course - Vitals: 98 F, HR 99, RR 1, BP 90/55, O2 sat 98% on room air - Labs: WBC 9.3 hemoglobin 11.6 hematocrit 34.8 platelet 458 ESR 75, BUN 41, Cr 1.5, BUN/Cr ratio 27, Sodium 140, potassium 4.7, chloride 106, bicarb 21.2, lactic acid 1.5, albumin 4.3, total protein 7.7 - Imaging: CT chest/abdomen/pelvis: No pneumonia pulmonary edema or pleural disease; Abdominal aortic calcification with aortic iliac stent but no aneurysm dilatation; Right ostomy; No bowel obstruction; Large soft tissue defect posterior pelvis on the right side, no fluid-filled drainable abscess; urine analysis: positve leukocyte esterase, 83 WBC, 5 hyaline cast - Treatment: Dilaudid 1 mg, Morphine 4 mg, Zofran 4 mg, IVF, Rocephin 1 G Of note, patient was admitted on 06/06/2025 for pyelonephritis which resolved with IV zosyn that was switched to ceftriaxone 1g. Urine, nasal screen, and blood culture came back negative before discharge. Patient was discharged with PO antibiotic - to continue taking augmentin twice daily for 4 more days. Review of Systems Review of Systems Narrative Review of Systems: All 13 review of systems are negative except as listed above in the HPI. Past Medical History Past Medical History Comments PMH COMMENT: Past Medical History: as above Family History: not significant Surgical History: (30 years ago), Spinal fusion 2022. Bowel resection and ileostomy tube creation Social History: Denies history of smoking, denies current alcohol use, denies recreational drug use. 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 Patient lives at home with , one of her 4 daughters and 3 grandchildren. Patient uses a walker to ambulate. Allergies: iodinated contrast (hives), hydrocodone (rash), codeine (hives) Exam Vital Signs Temp Pulse Resp BP Pulse Ox O2 Del Method 98.6 F 78 14 119/59 L 99 Room Air 06/13/25 01:48 06/13/25 01:48 06/13/25 01:48 06/13/25 01:48 06/13/25 01:48 06/13/25 01:48 Narrative Exam Physical Exam General: Awake and in no acute distress. Conversational and non-toxic appearing. HEENT: Normocephalic, atraumatic, dry lips, dry mucous membranes Heart: Regular rate and rhythm, normal S1 and S2, no murmurs. Lungs: Clear to auscultation with no wheezing or crackles. Abdomen: Soft, nondistended, nontender, positive bowel sounds. No guarding or rebound tenderness. Ileostomy with dark liquid with bandage. Neurologic: Alert and oriented x3, no gross neurological deficit, and patient able to move all 4 extremities. Extremities: No edema. Skin: No rash or ecchymoses. warm and dry, sacral ulcer with no pus, not erythematous, no drainage, and clean base Results: Labs 06/13/25 05:50 06/12/25 23:05 Labs: Short CBC 06/12/25 Range/Units 22:25 WBC 9.3 D (3.6-11.0) Thou/mm3 Hgb 11.6 L D (12.0-16.0) g/dL Hct 34.8 L (36.0-46.0) % Plt Count 458 H D (140-440) Thou/mm3 BMP 06/12/25 23:05 Sodium 140 Potassium 4.7 Chloride 106 Carbon Dioxide 21.2 BUN 41 H Creatinine 1.5 H D Glucose 161 H Calcium 9.6 Liver Function 06/12/25 Range/Units 23:05 Total Bilirubin 0.2 L (0.3-1.2) mg/dL Direct Bilirubin < 0.1 (0.0-0.3) mg/dL AST 12 (0-34) U/L ALT 11 (10-49) U/L Alkaline Phosphatase 138 H (46-116) U/L Albumin 4.3 (3.4-4.8) gm/dL Urine 06/12/25 Range/Units 23:51 Urine Color Lt-Yellow (Lt Yel-Yel) Urine Clarity Turbid A (Clear/Hazy) Urine pH 5.5 (5.0-7.0) Ur Specific [place] 1.018 (1.001-1.035) Urine Protein Trace (Neg - Trace) Urine Glucose (UA) Negative (Negative) Quality Measures Quality Measures none Advance care planning discussed with:: patient Medications Home Medications and Allergies Home Medications ?Medication ?Instructions ?Recorded ?Confirmed ?Type gabapentin 300 mg capsule 300 mg PO BID 10/19/2406/07 History clonazepam 1 mg tablet 1 mg PO BID 01/29/25 5 History Allergies Allergy/AdvReac Type Severity Reaction Status Date / Time codeine Allergy Severe HIVES Verified 02/18/25 07:34 hydrocodone Allergy Severe RASH AND Verified 02/18/25 07:34 SWELLING Iodinated Contrast Media Allergy Severe Hives Verified 02/18/25 07:34 Visit Medications Acetaminophen (Acetaminophen 325 Mg Tablet) 650 mg PO Q6H PRN PRN Reason: Fever >100.5 or pain Stop: 07/13/25 01:28 Albuterol (Albuterol Rt 2.5 Mg/0.5 Ml Nebu) 2.5 mg INH Q2HR PRN PRN Reason: SHORTNESS OF BREATH OR WHEEZE Stop: 07/13/25 01:28 Heparin Sodium (Porcine) (Heparin Sod Inj 5000 Unit/Ml Vial) 5,000 unit SC BID DENISSE Stop: 06/27/25 01:44 Hydromorphone HCl (Hydromorphone Inj 2 Mg/Ml Vial) 0.5 mg IVP Q4HR PRN PRN Reason: BREAKTHROUGH PAIN Stop: 06/18/25 01:28 Last Admin: 06/13/25 01:54 Dose: 0.5 mg Lactated Ringer's (Lactated Ringers) 1,000 mls @ 999 mls/hr IV .Q1H1M ONE Stop: 06/13/25 02:32 Last Admin: 06/13/25 01:57 Dose: 999 mls/hr Ondansetron HCl (Ondansetron Inj 2 Mg/Ml Inj 2 Ml) 4 mg IVP Q6H PRN; Protocol PRN Reason: NAUSEA OR VOMITING Stop: 07/13/25 01:28 Last Admin: 06/13/25 01:52 Dose: 4 mg Oxycodone/Acetaminophen (Oxycodone/Apap 5/325 Tablet) 1 tab PO Q6H PRN PRN Reason: PAIN SCALE 4-10(Mod-Sev Stop: 06/18/25 01:28 Pantoprazole Sodium (Pantoprazole Inj 40 Mg Vial) 40 mg IVP QDAY DENISSE Stop: 07/13/25 08:59 Sodium Chloride (Sodium Chloride Rt Naomi 0.9% 3 Ml Nebu) 3 ml INH PRN PRN PRN Reason: SOLN Stop: 07/13/25 01:28 Discontinued Medications Diphenhydramine HCl (Diphenhydramine Inj 50 Mg/Ml Vial) 12.5 mg IVP X1 ONE Stop: 06/13/25 01:37 Last Admin: 06/13/25 01:55 Dose: 12.5 mg Hydromorphone HCl (Hydromorphone Inj 2 Mg/Ml Vial) 1 mg IVP X1 ONE Stop: 06/12/25 23:47 Last Admin: 06/12/25 23:54 Dose: 1 mg Sodium Chloride (Ns) 1,000 mls @ 999 mls/hr IV .Q1H1M ONE Stop: 06/12/25 23:10 Last Infusion: 06/13/25 00:04 Dose: Infused Sodium Chloride (Ns) 1,000 mls @ 999 mls/hr IV .Q1H1M ONE Stop: 06/13/25 01:04 Last Infusion: 06/13/25 01:17 Dose: Infused Ceftriaxone Sodium/Dextrose (Rocephin/D5w 1gm Iv Premix) 1 gm in 50 mls @ 100 mls/hr IV X1 ONE Stop: 06/13/25 01:27 Last Infusion: 06/13/25 01:40 Dose: Infused Loperamide HCl (Loperamide 2 Mg Capsule) 4 mg PO X1 ONE Stop: 06/13/25 01:30 Last Admin: 06/13/25 01:56 Dose: 4 mg Morphine Sulfate (Morphine Sulf Inj 10 Mg/Ml Vial) 4 mg IVP X1 ONE Stop: 06/12/25 22:11 Last Admin: 06/12/25 22:28 Dose: 4 mg Ondansetron HCl (Ondansetron Inj 2 Mg/Ml Inj 2 Ml) 4 mg IVP X1 ONE; Protocol Stop: 06/12/25 22:11 Last Admin: 06/12/25 22:31 Dose: 4 mg Assessment & Plan Plan 64 year-old female with past medical history of coronary artery disease status post stents, peripheral artery disease, hypertension, type 2 diabete mellitus, dysphasia, esophageal stricture, recent ileostomy, and 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 #Dehydration - Likely from increased output into ileostomy and poor oral water intake - Presented to ED with hypotension (90/55) and elevated BUN:Cr ratio (27) - Continue with IV fluids #Insomnia - Patient requested Benadryl as this is what usually helps her sleep - Diphehydramine 12.5 mg IVP x1 #Possible UTI - Urine analysis: positve leukocyte esterase, 83 WBC, 5 hyaline cast - Afebrile, denies dysuria - Leukocytosis likely present from recent pyelonephritis #Stage IV pressure ulcer of sacral area - Patient is scheduled with a plastic surgeon to evaluate her sacral wound in an outpatient clinic next Sunday - Oxycodone 1 tab Q6h for pain #T2DM - Sliding scale insulin - IV dextrose protocol if hypoglycemic Health Maintenance Disposition: patient admitted to [facility] for dehydration DVT prophylaxis: Heparin 5,000 U subQ GI prophylaxis: not indicated Diet: regular Lines: Peripheral IV CODE STATUS: FULL Patient plan of care was discussed with the senior resident, Dr. Gong, and attending physician, Dr. Carbajal. Jordan Roach DO PGY-1 Attending Provider Attestation/Addendum 64-year-old female with coronary artery disease history of PA, peripheral vascular disease, stage IV sacral pressure ulcer status post ileostomy diabetes mellitus, hypertension, dysphagia, esophageal strictures was admitted because of dehydration secondary to poor intake and increased ileostomy output. Also has possible UTI. Patient will be admitted for further workup and treatment. Discussed with housestaff
[2025-06-13 02:28] LABS: INR 1.0 (0.9-1.3); Partial Thromboplastin Time 26.7 Seconds (22.0-36.0); Prothrombin Time 11.1 Seconds (9.0-12.2)
[2025-06-13] MEDS: HEPARIN SOD INJ 5000 UNIT/ML VIAL SC ×3 (03:14→20:10)
[2025-06-13 06:19] LABS: Basophils # (Auto) 0.0 Thou/mm3 (0.0-0.2); Basophils % (Auto) 0 % (0-2.5); Eosinophils # (Auto) 0.1 Thou/mm3 (0.0-0.5); Eosinophils % (Auto) 2 % (0-10); Hematocrit 28.7 % (36.0-46.0); Hemoglobin 9.2 g/dL (12.0-16.0); Immature Granulocytes Auto 0.01 Thou/mm3 (0.00-0.00); Lymphocytes # (Auto) 3.1 Thou/mm3 (1.0-4.8); Lymphocytes % (Auto) 46 % (10-50); Mean Corpuscular HGB Conc 32.1 g/dl (31.0-37.0); Mean Corpuscular Hemoglobin 27.7 pg (25.0-35.0); Mean Corpuscular Volume 86 fL (80-100); Monocytes # (Auto) 0.5 Thou/mm3 (0.0-0.8); Monocytes % (Auto) 8 % (0-12); Neutrophils # (Auto) 2.9 Thou/mm3 (1.8-7.7); Neutrophils % (Auto) 44 % (37-80); Nucleated Red Blood Cell # 0.00 Thou/mm3 (0.00-0.00); Nucleated Red Blood Cell % 0 /100 WBC (0); Platelet Count 364 Thou/mm3 (140-440); RDW Standard Deviation 49.8 fL (36.4-46.3); Red Blood Count 3.32 Miln/mm3 (4.00-5.20); White Blood Count 6.7 Thou/mm3 (3.6-11.0)
[2025-06-13 07:21] LABS: Albumin, Serum 3.5 gm/dL (3.4-4.8); Anion Gap 9 (7-16); BUN/Creatinine Ratio 27 Ratio (12-20); Blood Urea Nitrogen 32 mg/dL (9-23); Calcium 8.7 mg/dL (8.3-10.6); Calcium (Corrected) 9.1 mg/dL (8.5-10.1); Carbon Dioxide 20.9 mMol/L (20.0-31.0); Chloride 110 mMol/L (98-107); Creatinine (Component) 1.2 mg/dL (0.6-1.3); Estimated Creatinine Clearance 41.7 mL/min (>60); Glucose 165 mg/dL (74-106); Magnesium 1.2 mg/dL (1.6-2.6); Osmolality,Calculated 290 (275-295); Phosphorous 3.9 mg/dL (2.4-5.1); Potassium 4.4 mMol/L (3.4-5.1); Sodium 140 mMol/L (136-145); eGFR 50 See Note
[2025-06-13] MEDS: RINGERS LACTATED 1000 ML 1,000 ML 100 ML IV (07:58)
[2025-06-13] MEDS: INSULIN LISPRO (AdmeLOG) 1 UNIT/0.01 ML UNIT SC ×2 (12:10→17:29)
--- NOTE | 2025-06-13 12:49 | ESPR_ITS ---
<Statement entered by Tod Ma MD - 06/13/25 16:40> Patient seen and examined at bedside. I discussed and supervised with the campus recruiting intern physician who took care of this patient. I personally saw and examined the patient. I agree with most of the assessment and plan. Patient continues to have voluminous ileostomy output. Added Banatrol. Stool ctulures including C Diff ordered, pending. Continuing IV fluid support. Noted to have chronic wound on sacral ulcer and lower abdomen, both clean, packed. Plan of care discussed with attending Dr. Rao. Tod Ma MD PGY-2 Documentation for date of: 06/13/25 Subjective Subjective Interval history: No overnight events. Evaluated at bedside. The patient refers no pain. Loose stool noted in ileostomy bag. The patient denies chest pain, shortness of breath, or abdominal pain. Exam Vital Signs Temp Pulse Resp BP Pulse Ox O2 Del Method 97.7 F 81 18 95/49 L 95 Room Air 06/13/25 08:00 06/13/25 08:00 06/13/25 08:00 06/13/25 08:00 06/13/25 08:00 06/13/25 08:00 Narrative Exam General: Well appearing, well nourished, in no distress. Oriented x 3, normal mood and affect . Skin: Good turgor, no rash, unusual bruising or prominent lesions Heart: No cardiomegaly or thrills; regular rate and rhythm, no murmur or gallop Lungs: Clear to auscultation and percussion. No rales, wheeze, or rhonchi Abdomen: Ileostomy bag intact. Lower anterior abdominal wall wound open and packed. Back: Stage IV decubitus sacral ulcer Extremities: No amputations or deformities, cyanosis, edema or varicosities. Musculoskeletal: decreased muscle tone to all four extremities. Psychiatric: Oriented X3, intact recent and remote memory, judgment and insight, normal mood and affect. Objective Labs 06/14/25 04:31 06/14/25 04:31 Labs: Laboratory Results - last 24 hr 06/12/25 06/12/25 06/12/25 22:25 23:05 23:51 WBC 9.3 D RBC 4.19 Hgb 11.6 L D Hct 34.8 L MCV 83 MCH 27.7 MCHC 33.3 RDW Std Deviation 47.7 H Plt Count 458 H D Neut % (Auto) 55 Lymph % (Auto) 35 Gordon % (Auto) 8 Eos % (Auto) 1 Baso % (Auto) 0 Neut # (Auto) 5.1 Lymph # (Auto) 3.3 Gordon # (Auto) 0.8 Eos # (Auto) 0.1 Baso # (Auto) 0.0 Immature Gran # (Auto) 0.01 H Absolute Nucleated RBC 0.00 Immature Gran % 0 Nucleated RBC % 0 ESR 75 H PT INR APTT Sodium 140 Potassium 4.7 Chloride 106 Carbon Dioxide 21.2 Anion Gap 13 BUN 41 H Creatinine 1.5 H D Estim Creat Clear Calc 32.3 L eGFR 38 L BUN/Creatinine Ratio 27 H Glucose 161 H Calculated Osmolality 292 Lactic Acid 2.3 H Calcium 9.6 Corrected Calcium 9.6 Phosphorus Magnesium 1.6 Total Bilirubin 0.2 L Direct Bilirubin < 0.1 AST 12 ALT 11 Alkaline Phosphatase 138 H C-Reactive Prot, Quant 0.9 Total Protein 7.7 Albumin 4.3 Globulin 3.4 Albumin/Globulin Ratio 1.3 Amylase 160 H Lipase 193 H Procalcitonin 0.07 Ur Collection Type Clean Catch Urine Color Lt-Yellow Urine Clarity Turbid A Urine pH 5.5 Ur Specific [place] 1.018 Urine Protein Trace Urine Glucose (UA) Negative Urine Ketones Negative Urine Blood Negative Urine Nitrite Negative Urine Bilirubin Negative Urine Urobilinogen (Auto) Negative Ur Leukocyte Esterase Positive Urine RBC 8 H Urine WBC 83 H Ur Squamous Epith Cells 1 Urine Bacteria None Hyaline Casts 5 H Ur Culture Indicated? Yes 06/13/25 06/13/25 01:45 05:50 WBC 6.7 RBC 3.32 L Hgb 9.2 L D Hct 28.7 L MCV 86 MCH 27.7 MCHC 32.1 RDW Std Deviation 49.8 H Plt Count 364 D Neut % (Auto) 44 Lymph % (Auto) 46 Gordon % (Auto) 8 Eos % (Auto) 2 Baso % (Auto) 0 Neut # (Auto) 2.9 Lymph # (Auto) 3.1 Gordon # (Auto) 0.5 Eos # (Auto) 0.1 Baso # (Auto) 0.0 Immature Gran # (Auto) 0.01 H Absolute Nucleated RBC 0.00 Immature Gran % 0 Nucleated RBC % 0 ESR PT 11.1 INR 1.0 APTT 26.7 Sodium 140 Potassium 4.4 Chloride 110 H Carbon Dioxide 20.9 Anion Gap 9 BUN 32 H Creatinine 1.2 Estim Creat Clear Calc 41.7 L eGFR 50 L BUN/Creatinine Ratio 27 H Glucose 165 H Calculated Osmolality 290 Lactic Acid 1.5 Calcium 8.7 Corrected Calcium 9.1 Phosphorus 3.9 Magnesium 1.2 L Total Bilirubin Direct Bilirubin AST ALT Alkaline Phosphatase C-Reactive Prot, Quant Total Protein Albumin 3.5 D Globulin Albumin/Globulin Ratio Amylase Lipase Procalcitonin Ur Collection Type Urine Color Urine Clarity Urine pH Ur Specific [place] Urine Protein Urine Glucose (UA) Urine Ketones Urine Blood Urine Nitrite Urine Bilirubin Urine Urobilinogen (Auto) Ur Leukocyte Esterase Urine RBC Urine WBC Ur Squamous Epith Cells Urine Bacteria Hyaline Casts Ur Culture Indicated? Quality Measures Quality Measures VTE prophylaxis Advance care planning discussed with:: patient Assessment & Plan Assessment Current Active Medications: Generic Name Dose Route Start Last Admin Trade Name Freq PRN Reason Stop Dose Admin Acetaminophen 650 mg 06/13/25 12:01 Acetaminophen 325 Mg Tablet PO 07/13/25 01:28 Q6H PRN Fever >100.5 or pain Albuterol 2.5 mg 06/13/25 01:29 Albuterol Rt 2.5 Mg/0.5 Ml Nebu INH 07/13/25 01:28 Q2HR PRN SHORTNESS OF BREATH OR WHEEZE Dextrose 50 ml 06/13/25 05:22 Dextrose 50%-Water Inj 50 Ml Syringe IV 07/13/25 05:21 Q15MIN PRN BG <50 OR BG <70 & pt unresponsive Glucagon 1 mg 06/13/25 05:22 Glucagon Inj 1 Mg Vial IM Q15MIN PRN BG <70, and no IV access Heparin Sodium (Porcine) 5,000 unit 06/13/25 01:45 06/13/25 08:01 Heparin Sod Inj 5000 Unit/Ml Vial SC 06/27/25 01:44 5,000 unit BID DENISSE Administration Hydromorphone HCl 0.5 mg 06/13/25 12:01 Hydromorphone Inj 2 Mg/Ml Vial IVP 06/18/25 01:28 Q4HR PRN BREAKTHROUGH PAIN Lactated Ringer's 1,000 mls @ 100 mls/hr 06/13/25 07:43 06/13/25 07:58 Lactated Ringers IV 06/13/25 17:42 100 mls/hr .Q10H ONE Administration Magnesium Sulfate 4 gm in 50 mls @ 12.5 mls/hr 06/13/25 11:02 Magnesium Sulfate Ivpb IV 06/13/25 15:01 X1 ONE Magnesium Sulfate 2 gm in 50 mls @ 25 mls/hr 06/13/25 16:00 Magnesium Sulfate Ivpb IV 06/13/25 17:59 X1 ONE Insulin Human Lispro 0 unit 06/13/25 07:30 06/13/25 12:10 Insulin Lispro (Admelog) 1 Unit/0.01 Ml Unit SC 07/13/25 07:29 1 unit AC DENISSE Administration Protocol Ondansetron HCl 4 mg 06/13/25 01:29 06/13/25 01:52 Ondansetron Inj 2 Mg/Ml Inj 2 Ml IVP 07/13/25 01:28 4 mg Q6H PRN Administration NAUSEA OR VOMITING Protocol Oxycodone/Acetaminophen 1 tab 06/13/25 01:29 06/13/25 04:40 Oxycodone/Apap 5/325 Tablet PO 06/18/25 01:28 1 tab Q6H PRN Administration PAIN SCALE 4-10(Mod-Sev Pantoprazole Sodium 40 mg 06/13/25 09:00 06/13/25 08:00 Pantoprazole Inj 40 Mg Vial IVP 07/13/25 08:59 40 mg QDAY DENISSE Administration Sodium Chloride 3 ml 06/13/25 01:29 Sodium Chloride Rt Naomi 0.9% 3 Ml Nebu INH 07/13/25 01:28 PRN PRN SOLN Plan 64 year-old female with past medical history of coronary artery disease status post stents, peripheral artery disease, hypertension, type 2 diabete mellitus, dysphasia, esophageal stricture, recent ileostomy, and 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 #Dehydration - Likely from increased output into ileostomy and poor oral water intake - Presented to ED with hypotension (90/55) and elevated BUN:Cr ratio (30) - Continue with IV fluids - loperamide 4mg PO x 1 #Diarrhea loose stool since ileostomy bag placed in February 2025 - added Banatrol to diet - Pending Stool sample for C. diff testing - Pending norovirus PCR #Possible UTI - Urine analysis: positve leukocyte esterase, 83 WBC, 5 hyaline cast - Afebrile, denies dysuria - Leukocytosis likely present from recent pyelonephritis - Urine culture pending #Insomnia - Patient requested Benadryl as this is what usually helps her sleep - Diphehydramine 12.5 mg IVP x1 #Stage IV pressure ulcer of sacral area - Patient is scheduled with a plastic surgeon to evaluate her sacral wound in an outpatient clinic next Sunday - Percocet 1 tab Q6h for pain - Follow up wound care outpatient #T2DM - Sliding scale insulin - IV dextrose protocol if hypoglycemic Health Maintenance Disposition: patient admitted to [facility] for dehydration DVT prophylaxis: Heparin 5,000 U subQ GI prophylaxis: not indicated Diet: regular Lines: Peripheral IV CODE STATUS: FULL Case discussed with my senior resident Dr. Ma Case discussed with my attending Dr. Jalen Harry DO PGY 1 Attending Provider Attestation/Addendum Ivonne Sahni DO, attest that I was physically present for the jenkins portions of the service and evaluated the patient with the resident and I reviewed and discussed the case with the resident and agree with the resident's findings and plans of care as documented above Patient seen and eval this a.m. She states that she is feeling much improved today. Patient states that she had quite some pain from traveling to [facility] 2 times this week to see her plastic surgeon. She has been dealing with high output from her ileostomy for the past few months. Stool appears very watery in ileostomy bag. Patient is back at baseline mental status. Will check for C. difficile as patient was recently on antibiotics due to pyelonephritis. Will continue with IV fluid hydration and start patient on Banatrol to bulk up the stool. Patient otherwise reports feeling well and has been afebrile.
[2025-06-13] MEDS: Magnesium Sulfate 4 GM Ivpb 4 GM/50 ML BAG IV (12:50)
[2025-06-13] MEDS: Magnesium Sulfate 2 GM Ivpb 2 GM/50 ML BAG IV (16:25)
[2025-06-14] VITALS (8 sets, daily range): BP systolic 108–142; BP diastolic 51–70; PULSE 79–99; RESP 16–97; TEMP 36.1–36.7; O2SAT 95–98
[2025-06-14] MEDS: HYDROmorphone INJ 2 MG/ML VIAL 0.5 MG IVP ×5 (04:07→20:39)
[2025-06-14 05:25] LABS: Basophils # (Auto) 0.0 Thou/mm3 (0.0-0.2); Basophils % (Auto) 0 % (0-2.5); Eosinophils # (Auto) 0.1 Thou/mm3 (0.0-0.5); Eosinophils % (Auto) 2 % (0-10); Hematocrit 29.3 % (36.0-46.0); Hemoglobin 9.5 g/dL (12.0-16.0); Immature Granulocytes Auto 0.01 Thou/mm3 (0.00-0.00); Lymphocytes # (Auto) 2.6 Thou/mm3 (1.0-4.8); Lymphocytes % (Auto) 44 % (10-50); Mean Corpuscular HGB Conc 32.4 g/dl (31.0-37.0); Mean Corpuscular Hemoglobin 27.8 pg (25.0-35.0); Mean Corpuscular Volume 86 fL (80-100); Monocytes # (Auto) 0.5 Thou/mm3 (0.0-0.8); Monocytes % (Auto) 8 % (0-12); Neutrophils # (Auto) 2.6 Thou/mm3 (1.8-7.7); Neutrophils % (Auto) 45 % (37-80); Nucleated Red Blood Cell # 0.00 Thou/mm3 (0.00-0.00); Nucleated Red Blood Cell % 0 /100 WBC (0); Platelet Count 387 Thou/mm3 (140-440); RDW Standard Deviation 48.0 fL (36.4-46.3); Red Blood Count 3.42 Miln/mm3 (4.00-5.20); White Blood Count 5.9 Thou/mm3 (3.6-11.0)
[2025-06-14 06:07] LABS: Stool for WBCs Negative (Negative)
[2025-06-14 06:20] LABS: Alanine Aminotransferase 8 U/L (10-49); Albumin, Serum 3.7 gm/dL (3.4-4.8); Albumin/Globulin Ratio 1.3 (1.2-2.2); Alkaline Phosphatase 110 U/L (46-116); Anion Gap 9 (7-16); Aspartate Amino Transferase 12 U/L (0-34); BUN/Creatinine Ratio 21 Ratio (12-20); Bilirubin,Total 0.2 mg/dL (0.3-1.2); Blood Urea Nitrogen 21 mg/dL (9-23); Calcium 9.1 mg/dL (8.3-10.6); Calcium (Corrected) 9.3 mg/dL (8.5-10.1); Carbon Dioxide 21.3 mMol/L (20.0-31.0); Chloride 109 mMol/L (98-107); Creatinine (Component) 1.0 mg/dL (0.6-1.3); Estimated Creatinine Clearance 50.0 mL/min (>60); Globulin 2.9 gm/dL (2.3-3.5); Glucose 141 mg/dL (74-106); Magnesium 2.1 mg/dL (1.6-2.6); Osmolality,Calculated 282 (275-295); Phosphorous 3.5 mg/dL (2.4-5.1); Potassium 4.8 mMol/L (3.4-5.1); Sodium 139 mMol/L (136-145); Total Protein 6.6 gm/dL (5.7-8.2); eGFR > 60 See Note
[2025-06-14] MEDS: HEPARIN SOD INJ 5000 UNIT/ML VIAL SC ×2 (08:14→20:06)
[2025-06-14 08:51] LABS: Clostridium Difficile PCR Positive (Negative)
--- NOTE | 2025-06-14 10:52 | PC.SS ---
Patient is a 64YO White female, reason for visit: DEHYDRATION. Role and purpose of today's contact explained to patient. Patient confirmed her demographic information. Patient stated her primary medical surrogate decisionmaker is her spouse Ceasar Albarran [phone]. Patient stated she utilizes a FWW and Rollator to assist with ambulation. Patient reports requiring maximum assistance with ADLs and her spouse assists with ADLs. Pharmacy: [facility]. PCP: [facility]. Last appointment was approximately 2 weeks ago. Discharge plan: Home, family to transport. Next of Kin: Spouse Ceasar Albarran [phone]
[2025-06-14] MEDS: VANCOMYCIN 125 MG CAPSULE PO ×3 (12:15→20:07)
[2025-06-14] MEDS: GABAPENTIN 300 MG CAPSULE PO ×2 (12:16→20:07)
[2025-06-14] MEDS: ONDANSETRON INJ 2 MG/ML INJ 2 ML 4 MG IVP (12:16)
--- NOTE | 2025-06-14 13:28 | PC.NURSE ---
pt.'s daughter called and received information that patient could possibly go home tomorrow (from pt), pt's daughter voiced concern about positive c.diff diagnosis and does not want pt. home with 3 grandkids at home due to contagious dx. and would appeal discharge if that were to happen. educated her on contact precautions. will update oncoming staff
--- NOTE | 2025-06-14 15:29 | ESPR_ITS ---
<Statement entered by Boy Meza MD - 06/14/25 16:10> Patient was seen and examined at the bedside. No acute overnight events reported. Patient continues to have more output from the ileostomy bag. C. difficile came positive. Patient was started on p.o. Vanco 125 mg 4 times daily for 10 days. LR at 75 cc given due to output from ileostomy and more urine output. Encouraged on hydration. Family was notified. Contact precautions as needed. Will follow-up with culture results. All labs and orders were reviewed. I discussed and supervised with the grinder set up operator internal physician who took care of this patient. I personally saw and examined the patient. I agree with most of the assessment and plan. Disclaimer: Despite multiple revisions, due to the dictation software being used, the document bellow may not be free of grammatical errors including phonetic/typographic errors. However, this does not deter from our commitment to providing health care in the patient's best interest in mind. Plan of care discussed with attending Physician Dr. Jalen Meza MD PGY-3 Documentation for date of: 06/14/25 Subjective Subjective Interval history: No overnight events. Evaluated at bedside. Pt reports pain at sacral ulcer site. No drainage or erythema noted on examination. Ileostomy bag intact, and stool appears to improve in consistency. Of note, stool culture tested positive for C-diff. Exam Vital Signs Temp Pulse Resp BP Pulse Ox O2 Del Method 98.0 F 99 20 140/70 H 97 Room Air 06/14/25 12:00 06/14/25 12:00 06/14/25 12:00 06/14/25 12:00 06/14/25 12:00 06/14/25 12:00 Narrative Exam General: Well appearing, well nourished, in no distress. Oriented x 3, normal mood and affect . Skin: Good turgor, no rash, unusual bruising or prominent lesions Heart: No cardiomegaly or thrills; regular rate and rhythm, no murmur or gallop Lungs: Clear to auscultation and percussion. No rales, wheeze, or rhonchi Abdomen: Ileostomy bag intact. Lower anterior abdominal wall wound open and packed. Back: Stage IV decubitus sacral ulcer Extremities: No amputations or deformities, cyanosis, edema or varicosities. Musculoskeletal: decreased muscle tone to all four extremities. Psychiatric: Oriented X3, intact recent and remote memory, judgment and insight, normal mood and affect. Objective Labs 06/15/25 04:47 06/15/25 04:47 Labs: Laboratory Results - last 24 hr 06/13/25 06/14/25 22:38 04:31 WBC 5.9 RBC 3.42 L Hgb 9.5 L Hct 29.3 L MCV 86 MCH 27.8 MCHC 32.4 RDW Std Deviation 48.0 H Plt Count 387 Neut % (Auto) 45 Lymph % (Auto) 44 [place] % (Auto) 8 Eos % (Auto) 2 Baso % (Auto) 0 Neut # (Auto) 2.6 Lymph # (Auto) 2.6 [place] # (Auto) 0.5 Eos # (Auto) 0.1 Baso # (Auto) 0.0 Immature Gran # (Auto) 0.01 H Absolute Nucleated RBC 0.00 Immature Gran % 0 Nucleated RBC % 0 Sodium 139 Potassium 4.8 Chloride 109 H Carbon Dioxide 21.3 Anion Gap 9 BUN 21 Creatinine 1.0 Estim Creat Clear Calc 50.0 L eGFR > 60 BUN/Creatinine Ratio 21 H Glucose 141 H Calculated Osmolality 282 Calcium 9.1 Corrected Calcium 9.3 Phosphorus 3.5 Magnesium 2.1 Total Bilirubin 0.2 L AST 12 ALT 8 L Alkaline Phosphatase 110 D Total Protein 6.6 Albumin 3.7 Globulin 2.9 Albumin/Globulin Ratio 1.3 Stool for White Cells Negative Stl C. diff Tox B Gene Positive A Quality Measures Quality Measures VTE prophylaxis Advance care planning discussed with:: patient Assessment & Plan Assessment Current Active Medications: Generic Name Dose Route Start Last Admin Trade Name Des PRN Reason Stop Dose Admin Acetaminophen 650 mg 06/13/25 12:01 Acetaminophen 325 Mg Tablet PO 07/13/25 01:28 Q6H PRN Fever >100.5 or pain Albuterol 2.5 mg 06/13/25 01:29 Albuterol Rt 2.5 Mg/0.5 Ml Nebu INH 07/13/25 01:28 Q2HR PRN SHORTNESS OF BREATH OR WHEEZE Clonazepam 1 mg 06/14/25 10:45 06/14/25 12:16 Clonazepam 0.5 Mg Tablet PO 06/19/25 10:44 1 mg BID DENISSE Administration Dextrose 50 ml 06/13/25 05:22 Dextrose 50%-Water Inj 50 Ml Syringe IV 07/13/25 05:21 Q15MIN PRN BG <50 OR BG <70 & pt unresponsive Diphenhydramine HCl 12.5 mg 06/14/25 21:00 Diphenhydramine Inj 50 Mg/Ml Vial IVP 07/14/25 20:59 HS DENISSE Gabapentin 300 mg 06/14/25 11:15 06/14/25 12:16 Gabapentin 300 Mg Capsule PO 07/14/25 11:14 300 mg BID DENISSE Administration Glucagon 1 mg 06/13/25 05:22 Glucagon Inj 1 Mg Vial IM Q15MIN PRN BG <70, and no IV access Heparin Sodium (Porcine) 5,000 unit 06/13/25 01:45 06/14/25 08:14 Heparin Sod Inj 5000 Unit/Ml Vial SC 06/27/25 01:44 5,000 unit BID DENISSE Administration Hydromorphone HCl 0.5 mg 06/13/25 12:01 06/14/25 12:16 Hydromorphone Inj 2 Mg/Ml Vial IVP 06/19/25 11:12 0.5 mg Q4HR PRN Administration BREAKTHROUGH PAIN Insulin Human Lispro 0 unit 06/13/25 07:30 06/14/25 12:17 Insulin Lispro (Admelog) 1 Unit/0.01 Ml Unit SC 07/13/25 07:29 Not Given AC [facility] Protocol Ondansetron HCl 4 mg 06/13/25 01:29 06/14/25 12:16 Ondansetron Inj 2 Mg/Ml Inj 2 Ml IVP 07/13/25 01:28 4 mg Q6H PRN Administration NAUSEA OR VOMITING Protocol Oxycodone/Acetaminophen 1 tab 06/14/25 11:32 06/14/25 13:36 Oxycodone/Apap 5/325 Tablet PO 06/18/25 01:28 1 tab Q6H PRN Administration PAIN SCALE 7-10 (Severe Pantoprazole Sodium 40 mg 06/13/25 09:00 06/14/25 08:14 Pantoprazole Inj 40 Mg Vial IVP 07/13/25 08:59 40 mg QDAY DENISSE Administration Sodium Chloride 3 ml 06/13/25 01:29 Sodium Chloride Rt Naomi 0.9% 3 Ml Nebu INH 07/13/25 01:28 PRN PRN SOLN Tramadol HCl 50 mg 06/14/25 10:35 Tramadol Hcl 50 Mg Tablet PO 06/19/25 10:34 BID PRN PAIN SCALE 4-6 (Moderate Trazodone HCl 50 mg 06/14/25 21:00 Trazodone Hcl 50 Mg Tablet PO 07/14/25 20:59 HS DENISSE Vancomycin HCl 125 mg 06/14/25 12:00 06/14/25 12:15 Vancomycin 125 Mg Capsule PO 06/24/25 06:01 125 mg QID DENISSE Administration Plan 64 year-old female with past medical history of coronary artery disease status post stents, peripheral artery disease, hypertension, type 2 diabete mellitus, dysphasia, esophageal stricture, recent ileostomy, and 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 Stool culture tested positive for C- Diff. PO Vancomycin started. #Dehydration - Likely from increased output into ileostomy and poor oral water intake - Presented to ED with hypotension (90/55) and elevated BUN:Cr ratio (30) - Continue with IV fluids - loperamide 4mg PO x 1 #Clostridium difficle Positive #Diarrhea loose stool since ileostomy bag placed in February 2025 - added Banatrol to diet -Contact precautions - C. diff positive, PO Vanco started 125 mg QID x10 days - Pending norovirus PCR #Possible UTI - Urine analysis: positve leukocyte esterase, 83 WBC, 5 hyaline cast - Afebrile, denies dysuria - Leukocytosis likely present from recent pyelonephritis - Urine culture pending #Insomnia - Patient requested Benadryl as this is what usually helps her sleep - Diphehydramine 12.5 mg IVP x1 #Stage IV pressure ulcer of sacral area - Patient is scheduled with a plastic surgeon to evaluate her sacral wound in an outpatient clinic next Sunday - Percocet 1 tab Q6h for pain - Gabapentin 300mg PO BID - Follow up wound care outpatient - Dilaudid PRN #T2DM - Sliding scale insulin - IV dextrose protocol if hypoglycemic Health Maintenance Disposition: patient admitted to [facility] for dehydration DVT prophylaxis: Heparin 5,000 U subQ GI prophylaxis: Protonix 40mg Diet: regular Lines: Peripheral IV CODE STATUS: FULL Case discussed with my senior resident Dr. Meza Case discussed with my attending Dr. Jalen Bradleyh, DO PGY 1 Attending Provider Attestation/Addendum I, Ivonne Rao DO, attest that I was physically present for the jenkins portions of the service and evaluated the patient with the resident and I reviewed and discussed the case with the resident and agree with the resident's findings and plans of care as documented above Patient seen and eval this a.m. Patient noted to be C. difficile positive. Is will start her on vancomycin 125 mg p.o. 4 times daily. Stool appears to be less watery today from ileostomy after patient received Benadryl. Will continue with current management. And will continue with IV fluid hydration. Physical therapy pending. Anticipate discharge within the next 24 hours if patient remains stable.
[2025-06-14] MEDS: RINGERS LACTATED 1000 ML 1,000 ML 75 ML IV (16:23)
[2025-06-14] MEDS: INSULIN LISPRO (AdmeLOG) 1 UNIT/0.01 ML UNIT SC (18:28)
[2025-06-15] VITALS (10 sets, daily range): BP systolic 97–130; BP diastolic 46–62; PULSE 75–88; RESP 15–96; TEMP 36.1–36.2; O2SAT 94–97; BMI 26.8
[2025-06-15] MEDS: HYDROmorphone INJ 2 MG/ML VIAL 0.5 MG IVP ×6 (01:09→23:54)
[2025-06-15] MEDS: VANCOMYCIN 125 MG CAPSULE PO ×4 (05:11→20:22)
[2025-06-15 05:19] LABS: Basophils # (Auto) 0.0 Thou/mm3 (0.0-0.2); Basophils % (Auto) 0 % (0-2.5); Eosinophils # (Auto) 0.1 Thou/mm3 (0.0-0.5); Eosinophils % (Auto) 2 % (0-10); Hematocrit 28.8 % (36.0-46.0); Hemoglobin 9.5 g/dL (12.0-16.0); Immature Granulocytes Auto 0.00 Thou/mm3 (0.00-0.00); Lymphocytes # (Auto) 2.8 Thou/mm3 (1.0-4.8); Lymphocytes % (Auto) 57 % (10-50); Mean Corpuscular HGB Conc 33.0 g/dl (31.0-37.0); Mean Corpuscular Hemoglobin 27.7 pg (25.0-35.0); Mean Corpuscular Volume 84 fL (80-100); Monocytes # (Auto) 0.4 Thou/mm3 (0.0-0.8); Monocytes % (Auto) 8 % (0-12); Neutrophils # (Auto) 1.6 Thou/mm3 (1.8-7.7); Neutrophils % (Auto) 33 % (37-80); Nucleated Red Blood Cell # 0.00 Thou/mm3 (0.00-0.00); Nucleated Red Blood Cell % 0 /100 WBC (0); Platelet Count 361 Thou/mm3 (140-440); RDW Standard Deviation 46.3 fL (36.4-46.3); Red Blood Count 3.43 Miln/mm3 (4.00-5.20); White Blood Count 4.9 Thou/mm3 (3.6-11.0)
[2025-06-15 05:59] LABS: Alanine Aminotransferase < 7 U/L (10-49); Albumin, Serum 3.7 gm/dL (3.4-4.8); Albumin/Globulin Ratio 1.4 (1.2-2.2); Alkaline Phosphatase 105 U/L (46-116); Anion Gap 10 (7-16); Aspartate Amino Transferase 13 U/L (0-34); BUN/Creatinine Ratio 23 Ratio (12-20); Bilirubin,Total 0.2 mg/dL (0.3-1.2); Blood Urea Nitrogen 18 mg/dL (9-23); Calcium 9.4 mg/dL (8.3-10.6); Calcium (Corrected) 9.6 mg/dL (8.5-10.1); Carbon Dioxide 23.8 mMol/L (20.0-31.0); Chloride 106 mMol/L (98-107); Creatinine (Component) 0.8 mg/dL (0.6-1.3); Estimated Creatinine Clearance 62.5 mL/min (>60); Globulin 2.6 gm/dL (2.3-3.5); Glucose 105 mg/dL (74-106); Magnesium 1.4 mg/dL (1.6-2.6); Osmolality,Calculated 281 (275-295); Phosphorous 4.0 mg/dL (2.4-5.1); Potassium 4.9 mMol/L (3.4-5.1); Sodium 140 mMol/L (136-145); Total Protein 6.3 gm/dL (5.7-8.2); eGFR > 60 See Note
--- NOTE | 2025-06-15 08:56 | PC.NURSE ---
DR. CARRION AND DR. SLAUGHTER AT BEDSIDE DISCUSSES POC WITH PATIENT.
[2025-06-15] MEDS: HEPARIN SOD INJ 5000 UNIT/ML VIAL SC ×2 (09:13→20:23)
[2025-06-15] MEDS: Magnesium Sulfate 4 GM Ivpb 4 GM/50 ML BAG IV (09:13)
[2025-06-15] MEDS: GABAPENTIN 300 MG CAPSULE PO ×2 (09:14→20:22)
--- NOTE | 2025-06-15 09:50 | ESPR_ITS ---
<Statement entered by Boy Meza MD - 06/15/25 11:51> Patient was seen and examined at the bedside. No acute overnight events reported. Patient reported having abdominal cramps and feeling weak. Ileostomy bag showed watery black in color stool. Continue vancomycin contact precautions. LR was restarted at 75 cc/h. KUB showed improvement from the previous x-ray. Will continue with current antibiotics and added Bentyl for cramps. Continue with IV pain meds in patient's home medication. Will follow- up with stool cultures. Continue Banatrol alongwith regular diet. I discussed and supervised with the bakery pastry internship physician who took care of this patient. I personally saw and examined the patient. I agree with most of the assessment and plan. Disclaimer: Despite multiple revisions, due to the dictation software being used, the document bellow may not be free of grammatical errors including phonetic/typographic errors. However, this does not deter from our commitment to providing health care in the patient's best interest in mind. Plan of care discussed with attending Physician Dr. Jalen Meza MD PGY-3 Documentation for date of: 06/15/25 Subjective Subjective Interval history: No overnight events. Evaluated at bedside. Pt refers 8/10, intermittent, localized, cramping pain to epigastric region that started earlier this morning. She also reports back pain due to her history of spinal fusion. Ileostomy bag intact, and has been draining dark, bile like substance, different from what was noted yesterday. She was put on PO vanco for positive. C. diff. Exam Vital Signs Temp Pulse Resp BP Pulse Ox O2 Del Method 97.2 F 84 18 107/49 L 96 Room Air 06/15/25 08:00 06/15/25 08:00 06/15/25 08:00 06/15/25 08:00 06/15/25 08:00 06/15/25 08:00 Narrative Exam General: Well appearing, in no distress. Oriented x 3, normal mood and affect . Skin: Good turgor, no rash, unusual bruising or prominent lesions Heart: No cardiomegaly or thrills; regular rate and rhythm, no murmur or gallop Lungs: Clear to auscultation and percussion. No rales, wheeze, or rhonchi Abdomen: Ileostomy bag intact. Lower anterior abdominal wall wound open and packed. Tenderness to palpation at epigastric region Back: Stage IV decubitus sacral ulcer, packed. Extremities: No amputations or deformities, cyanosis, edema or varicosities. Musculoskeletal: decreased muscle tone to all four extremities. Psychiatric: Oriented X3, intact recent and remote memory, judgment and insight, normal Objective Labs 06/16/25 05:40 06/16/25 05:40 Labs: Laboratory Results - last 24 hr 06/15/25 04:47 WBC 4.9 RBC 3.43 L Hgb 9.5 L Hct 28.8 L MCV 84 MCH 27.7 MCHC 33.0 RDW Std Deviation 46.3 Plt Count 361 Neut % (Auto) 33 L Lymph % (Auto) 57 H [place] % (Auto) 8 Eos % (Auto) 2 Baso % (Auto) 0 Neut # (Auto) 1.6 L Lymph # (Auto) 2.8 [place] # (Auto) 0.4 Eos # (Auto) 0.1 Baso # (Auto) 0.0 Immature Gran # (Auto) 0.00 Absolute Nucleated RBC 0.00 Immature Gran % 0 Nucleated RBC % 0 Sodium 140 Potassium 4.9 Chloride 106 Carbon Dioxide 23.8 Anion Gap 10 BUN 18 Creatinine 0.8 Estim Creat Clear Calc 62.5 eGFR > 60 BUN/Creatinine Ratio 23 H Glucose 105 Calculated Osmolality 281 Calcium 9.4 Corrected Calcium 9.6 Phosphorus 4.0 Magnesium 1.4 L Total Bilirubin 0.2 L AST 13 ALT < 7 L Alkaline Phosphatase 105 Total Protein 6.3 Albumin 3.7 Globulin 2.6 Albumin/Globulin Ratio 1.4 Quality Measures Quality Measures VTE prophylaxis Advance care planning discussed with:: patient Assessment & Plan Assessment Current Active Medications: Generic Name Dose Route Start Last Admin Trade Name Freq PRN Reason Stop Dose Admin Acetaminophen 650 mg 06/13/25 12:01 Acetaminophen 325 Mg Tablet PO 07/13/25 01:28 Q6H PRN Fever >100.5 or pain Albuterol 2.5 mg 06/13/25 01:29 Albuterol Rt 2.5 Mg/0.5 Ml Nebu INH 07/13/25 01:28 Q2HR PRN SHORTNESS OF BREATH OR WHEEZE Clonazepam 1 mg 06/14/25 10:45 06/15/25 09:14 Clonazepam 0.5 Mg Tablet PO 06/19/25 10:44 1 mg BID DENISSE Administration Dextrose 50 ml 06/13/25 05:22 Dextrose 50%-Water Inj 50 Ml Syringe IV 07/13/25 05:21 Q15MIN PRN BG <50 OR BG <70 & pt unresponsive Diphenhydramine HCl 12.5 mg 06/14/25 21:00 06/14/25 20:06 Diphenhydramine Inj 50 Mg/Ml Vial IVP 07/14/25 20:59 12.5 mg HS DENISSE Administration Gabapentin 300 mg 06/14/25 11:15 06/15/25 09:14 Gabapentin 300 Mg Capsule PO 07/14/25 11:14 300 mg BID DENISSE Administration Glucagon 1 mg 06/13/25 05:22 Glucagon Inj 1 Mg Vial IM Q15MIN PRN BG <70, and no IV access Heparin Sodium (Porcine) 5,000 unit 06/13/25 01:45 06/15/25 09:13 Heparin Sod Inj 5000 Unit/Ml Vial SC 06/27/25 01:44 5,000 unit BID DENISSE Administration Hydromorphone HCl 0.5 mg 06/13/25 12:01 06/15/25 09:13 Hydromorphone Inj 2 Mg/Ml Vial IVP 06/19/25 11:12 0.5 mg Q4HR PRN Administration BREAKTHROUGH PAIN Magnesium Sulfate 4 gm in 50 mls @ 12.5 mls/hr 06/15/25 07:49 06/15/25 09:13 Magnesium Sulfate Ivpb IV 06/15/25 11:48 12.5 mls/hr X1 ONE Administration Insulin Human Lispro 0 unit 06/13/25 07:30 06/15/25 07:42 Insulin Lispro (Admelog) 1 Unit/0.01 Ml Unit SC 07/13/25 07:29 Not Given AC [facility] Protocol Ondansetron HCl 4 mg 06/13/25 01:29 06/14/25 12:16 Ondansetron Inj 2 Mg/Ml Inj 2 Ml IVP 07/13/25 01:28 4 mg Q6H PRN Administration NAUSEA OR VOMITING Protocol Oxycodone/Acetaminophen 1 tab 06/14/25 11:32 06/15/25 07:41 Oxycodone/Apap 5/325 Tablet PO 06/18/25 01:28 1 tab Q6H PRN Administration PAIN SCALE 7-10 (Severe Pantoprazole Sodium 40 mg 06/13/25 09:00 06/15/25 09:12 Pantoprazole Inj 40 Mg Vial IVP 07/13/25 08:59 40 mg QDAY DENISSE Administration Sodium Chloride 3 ml 06/13/25 01:29 Sodium Chloride Rt Naomi 0.9% 3 Ml Nebu INH 07/13/25 01:28 PRN PRN SOLN Tramadol HCl 50 mg 06/14/25 10:35 Tramadol Hcl 50 Mg Tablet PO 06/19/25 10:34 BID PRN PAIN SCALE 4-6 (Moderate Trazodone HCl 50 mg 06/14/25 21:00 06/14/25 20:07 Trazodone Hcl 50 Mg Tablet PO 07/14/25 20:59 50 mg HS DENISSE Administration Vancomycin HCl 125 mg 06/14/25 12:00 06/15/25 05:11 Vancomycin 125 Mg Capsule PO 06/24/25 06:01 125 mg QID DENISSE Administration Plan 64 year-old female with past medical history of coronary artery disease status post stents, peripheral artery disease, hypertension, type 2 diabete mellitus, dysphasia, esophageal stricture, recent ileostomy, and 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 Stool culture tested positive for C- Diff. Continue PO Vancomycin. Dark bile like substance noted in ileostomy bag. KUB unremarkable. #Dehydration - Likely from increased output into ileostomy and poor oral water intake - Presented to ED with hypotension (90/55) and elevated BUN:Cr ratio (30) - Continue with IV fluids, 2L of LR ordered today. - loperamide 4mg PO x 1 - Bentyl 10mg PO PRN ordered #Clostridium difficle Positive #Diarrhea loose stool since ileostomy bag placed in February 2025. - added Banatrol to diet -Contact precautions - C. diff positive, PO Vanco started 125 mg QID x10 days - Pending norovirus PCR - Pending Giardia antigen - KUB on 06/15/25 unremarkable. #Asymptomatic pyuria - Urine analysis: positve leukocyte esterase, 83 WBC, 5 hyaline cast - Afebrile, denies dysuria - Leukocytosis likely present from recent pyelonephritis - Urine culture pending #Insomnia - Patient requested Benadryl as this is what usually helps her sleep - Diphehydramine 12.5 mg IVP x1 #Stage IV pressure ulcer of sacral area - Patient is scheduled with a plastic surgeon to evaluate her sacral wound in an outpatient clinic next Sunday - Percocet 1 tab Q6h for pain - Gabapentin 300mg PO BID - Follow up wound care outpatient - Dilaudid PRN #T2DM - Sliding scale insulin - IV dextrose protocol if hypoglycemic Health Maintenance Disposition: patient admitted to [facility] for dehydration DVT prophylaxis: Heparin 5,000 U subQ GI prophylaxis: Protonix 40mg Diet: regular+ Banatrol Lines: Peripheral IV CODE STATUS: FULL Case discussed with my senior resident Dr. Meza Case discussed with my attending Dr. Jalen Harry DO PGY 1 Attending Provider Attestation/Addendum Ivonne Sahni DO, attest that I was physically present for the jenkins portions of the service and evaluated the patient with the resident and I reviewed and discussed the case with the resident and agree with the resident's findings and plans of care as documented above Patient seen and eval this a.m. Found to be C. difficile positive and remains on vancomycin. Patient reports having different color stool that appears to be black and watery. Low suspicion for blood. Patient complains of pain, suspect gas pain. Will also give Bentyl as needed as antispasmodic and simethicone for gas pain. Will continue with pain control as needed. Anticipate discharge in the next 24 to 48 hours. Patient is otherwise tolerating p.o. diet
--- NOTE | 2025-06-15 10:43 | XR_ITS ---
Examination: Abdomen AP single view Technique: AP portable supine abdomen, single view Exam date and time: June 15, 2025 1059 hours INDICATIONS: Abdominal pain today. FINDINGS: Moderate air and stool throughout the colon. No obstruction. Surgical clips right abdomen. Severe osteopenia Extensive transpedicular lumbar lower effusion. Aorto iliac stent IMPRESSION: Nonobstructive bowel gas pattern. No free air
[2025-06-15] MEDS: RINGERS LACTATED 1000 ML 1,000 ML 75 ML IV (11:52)
[2025-06-15] MEDS: ONDANSETRON INJ 2 MG/ML INJ 2 ML 4 MG IVP (13:44)
[2025-06-15] MEDS: DICYCLOMINE 10 MG CAPSULE PO (13:44)
--- NOTE | 2025-06-15 14:31 | PC.SS ---
SS follow up note; Patient is CDiff Positive, getting treated. Patient will discharge home when medically cleared.
[2025-06-15] MEDS: SIMETHICONE 80 MG CHEW PO (15:30)
[2025-06-15] MEDS: LACTOBACILLUS RHAMNOSUS 1 CAP PO (20:22)
[2025-06-16] VITALS (10 sets, daily range): BP systolic 103–128; BP diastolic 47–72; PULSE 70–85; RESP 15–18; TEMP 36.1–36.7; O2SAT 95–98
[2025-06-16] MEDS: HYDROmorphone INJ 2 MG/ML VIAL 0.5 MG IVP ×5 (04:13→21:38)
[2025-06-16 06:01] LABS: Basophils # (Auto) 0.0 Thou/mm3 (0.0-0.2); Basophils % (Auto) 0 % (0-2.5); Eosinophils # (Auto) 0.1 Thou/mm3 (0.0-0.5); Eosinophils % (Auto) 2 % (0-10); Hematocrit 30.0 % (36.0-46.0); Hemoglobin 9.7 g/dL (12.0-16.0); Immature Granulocytes Auto 0.01 Thou/mm3 (0.00-0.00); Lymphocytes # (Auto) 2.5 Thou/mm3 (1.0-4.8); Lymphocytes % (Auto) 51 % (10-50); Mean Corpuscular HGB Conc 32.3 g/dl (31.0-37.0); Mean Corpuscular Hemoglobin 28.0 pg (25.0-35.0); Mean Corpuscular Volume 87 fL (80-100); Monocytes # (Auto) 0.5 Thou/mm3 (0.0-0.8); Monocytes % (Auto) 9 % (0-12); Neutrophils # (Auto) 1.9 Thou/mm3 (1.8-7.7); Neutrophils % (Auto) 38 % (37-80); Nucleated Red Blood Cell # 0.00 Thou/mm3 (0.00-0.00); Nucleated Red Blood Cell % 0 /100 WBC (0); Platelet Count 345 Thou/mm3 (140-440); RDW Standard Deviation 47.6 fL (36.4-46.3); Red Blood Count 3.47 Miln/mm3 (4.00-5.20); White Blood Count 4.9 Thou/mm3 (3.6-11.0)
[2025-06-16] MEDS: VANCOMYCIN 125 MG CAPSULE PO ×4 (06:35→20:08)
[2025-06-16 06:46] LABS: Alanine Aminotransferase < 7 U/L (10-49); Albumin, Serum 3.7 gm/dL (3.4-4.8); Albumin/Globulin Ratio 1.3 (1.2-2.2); Alkaline Phosphatase 104 U/L (46-116); Anion Gap 8 (7-16); Aspartate Amino Transferase 11 U/L (0-34); BUN/Creatinine Ratio 23 Ratio (12-20); Bilirubin,Total 0.2 mg/dL (0.3-1.2); Blood Urea Nitrogen 21 mg/dL (9-23); Calcium 9.3 mg/dL (8.3-10.6); Calcium (Corrected) 9.5 mg/dL (8.5-10.1); Carbon Dioxide 25.6 mMol/L (20.0-31.0); Chloride 106 mMol/L (98-107); Creatinine (Component) 0.9 mg/dL (0.6-1.3); Estimated Creatinine Clearance 54.1 mL/min (>60); Globulin 2.9 gm/dL (2.3-3.5); Glucose 142 mg/dL (74-106); Magnesium 1.6 mg/dL (1.6-2.6); Osmolality,Calculated 284 (275-295); Phosphorous 4.5 mg/dL (2.4-5.1); Potassium 5.0 mMol/L (3.4-5.1); Sodium 140 mMol/L (136-145); Total Protein 6.6 gm/dL (5.7-8.2); eGFR > 60 See Note
[2025-06-16] MEDS: Magnesium Sulfate 4 GM Ivpb 4 GM/50 ML BAG IV (08:59)
[2025-06-16] MEDS: GABAPENTIN 300 MG CAPSULE PO ×2 (09:00→20:07)
[2025-06-16] MEDS: LACTOBACILLUS RHAMNOSUS 1 CAP PO ×2 (09:00→20:07)
[2025-06-16] MEDS: HEPARIN SOD INJ 5000 UNIT/ML VIAL SC ×2 (09:02→20:20)
--- NOTE | 2025-06-16 13:51 | PC.PT ---
Patient was approached at 1130 to attempt to initiate PT evaluation. CDIFF precautions observed. As per patient, her daughter assist her as needed. She was able to transfer to bedside commode. She said she has no problems ambulating. This PT confirmed twice. Patient agrees that she does not need PT and that she was able to ambulate as that's one thing she doesn't want to loose is her mobility so she tries to move as much as she can. RN made aware. Will cancel PT evaluation.
--- NOTE | 2025-06-16 13:52 | ESPR_ITS ---
<Statement entered by Boy eMza MD - 06/16/25 14:31> Patient was seen and examined at the bedside. Patient reported to have abdominal discomfort despite using Bentyl. Simethicone was scheduled for bloating. Will continue with p.o. Vanco 125 mg 4 times daily. Continue with pain medications. PT evaluation ordered. Family was notified. I discussed and supervised with the buying intern physician who took care of this patient. I personally saw and examined the patient. I agree with most of the assessment and plan. Disclaimer: Despite multiple revisions, due to the dictation software being used, the document bellow may not be free of grammatical errors including phonetic/typographic errors. However, this does not deter from our commitment to providing health care in the patient's best interest in mind. Plan of care discussed with attending Physician Dr. Boy Meza MD PGY-3 Documentation for date of: 06/16/25 Subjective Subjective Interval history: No overnight events. Evaluated at bedside. Pt continues to reports crampy abdominal pain, but states it has improved from yesterday. Ileostomy bag intact, draining dark green stool that has improved in consistency compare to the day prior. Probiotic and Simethicone added to her bowel regimen. Exam Vital Signs Temp Pulse Resp BP Pulse Ox O2 Del Method 97.7 F 84 15 128/70 97 Room Air 06/16/25 12:00 06/16/25 12:00 06/16/25 12:00 06/16/25 12:00 06/16/25 12:00 06/16/25 12:00 Narrative Exam General: Well appearing, in no distress. Oriented x 3, normal mood and affect . Skin: Good turgor, no rash, unusual bruising or prominent lesions Heart: No cardiomegaly or thrills; regular rate and rhythm, no murmur or gallop Lungs: Clear to auscultation and percussion. No rales, wheeze, or rhonchi Abdomen: Ileostomy bag intact. Lower anterior abdominal wall wound open and packed. Slight diffuse tenderness to all quadrants. Back: Stage IV decubitus sacral ulcer, packed. Extremities: No amputations or deformities, cyanosis, edema or varicosities. Musculoskeletal: decreased muscle tone to all four extremities. Psychiatric: Oriented X3, intact recent and remote memory, judgment and insight, normal Objective Labs 06/17/25 05:16 06/17/25 05:16 Labs: Laboratory Results - last 24 hr 06/16/25 05:40 WBC 4.9 RBC 3.47 L Hgb 9.7 L Hct 30.0 L MCV 87 MCH 28.0 MCHC 32.3 RDW Std Deviation 47.6 H Plt Count 345 Neut % (Auto) 38 Lymph % (Auto) 51 H Bos[place] % (Auto) 9 Eos % (Auto) 2 Baso % (Auto) 0 Neut # (Auto) 1.9 Lymph # (Auto) 2.5 [place] # (Auto) 0.5 Eos # (Auto) 0.1 Baso # (Auto) 0.0 Immature Gran # (Auto) 0.01 H Absolute Nucleated RBC 0.00 Immature Gran % 0 Nucleated RBC % 0 Sodium 140 Potassium 5.0 Chloride 106 Carbon Dioxide 25.6 Anion Gap 8 BUN 21 Creatinine 0.9 Estim Creat Clear Calc 54.1 L eGFR > 60 BUN/Creatinine Ratio 23 H Glucose 142 H Calculated Osmolality 284 Calcium 9.3 Corrected Calcium 9.5 Phosphorus 4.5 Magnesium 1.6 Total Bilirubin 0.2 L AST 11 ALT < 7 L Alkaline Phosphatase 104 Total Protein 6.6 Albumin 3.7 Globulin 2.9 Albumin/Globulin Ratio 1.3 Quality Measures Quality Measures VTE prophylaxis Advance care planning discussed with:: patient Assessment & Plan Assessment Current Active Medications: Generic Name Dose Route Start Last Admin Trade Name Freq PRN Reason Stop Dose Admin Acetaminophen 650 mg 06/13/25 12:01 Acetaminophen 325 Mg Tablet PO 07/13/25 01:28 Q6H PRN Fever >100.5 or pain Albuterol 2.5 mg 06/13/25 01:29 Albuterol Rt 2.5 Mg/0.5 Ml Nebu INH 07/13/25 01:28 Q2HR PRN SHORTNESS OF BREATH OR WHEEZE Clonazepam 1 mg 06/14/25 10:45 06/16/25 08:59 Clonazepam 0.5 Mg Tablet PO 06/19/25 10:44 1 mg BID DENISSE Administration Dextrose 50 ml 06/13/25 05:22 Dextrose 50%-Water Inj 50 Ml Syringe IV 07/13/25 05:21 Q15MIN PRN BG <50 OR BG <70 & pt unresponsive Dicyclomine HCl 10 mg 06/15/25 10:00 06/15/25 13:44 Dicyclomine 10 Mg Capsule PO 07/15/25 09:59 10 mg Q4HR PRN Administration CRAMPS Diphenhydramine HCl 12.5 mg 06/14/25 21:00 06/15/25 20:23 Diphenhydramine Inj 50 Mg/Ml Vial IVP 07/14/25 20:59 12.5 mg HS DENISSE Administration Gabapentin 300 mg 06/14/25 11:15 06/16/25 09:00 Gabapentin 300 Mg Capsule PO 07/14/25 11:14 300 mg BID DENISSE Administration Glucagon 1 mg 06/13/25 05:22 Glucagon Inj 1 Mg Vial IM Q15MIN PRN BG <70, and no IV access Heparin Sodium (Porcine) 5,000 unit 06/13/25 01:45 06/16/25 09:02 Heparin Sod Inj 5000 Unit/Ml Vial SC 06/27/25 01:44 5,000 unit BID DENISSE Administration Hydromorphone HCl 0.5 mg 06/13/25 12:01 06/16/25 13:19 Hydromorphone Inj 2 Mg/Ml Vial IVP 06/19/25 11:12 0.5 mg Q4HR PRN Administration BREAKTHROUGH PAIN Protocol Insulin Human Lispro 0 unit 06/13/25 07:30 06/16/25 11:42 Insulin Lispro (Admelog) 1 Unit/0.01 Ml Unit SC 07/13/25 07:29 Not Given AC [facility] Protocol Lactobacillus Rhamnosus 1 cap 06/15/25 21:00 06/16/25 09:00 Lactobacillus Rhamnosus 1 Cap PO 07/15/25 20:59 1 cap BID DENISSE Administration Ondansetron HCl 4 mg 06/13/25 01:29 06/15/25 13:44 Ondansetron Inj 2 Mg/Ml Inj 2 Ml IVP 07/13/25 01:28 4 mg Q6H PRN Administration NAUSEA OR VOMITING Protocol Oxycodone/Acetaminophen 1 tab 06/14/25 11:32 06/16/25 11:16 Oxycodone/Apap 5/325 Tablet PO 06/18/25 01:28 1 tab Q6H PRN Administration PAIN SCALE 7-10 (Severe Pantoprazole Sodium 40 mg 06/13/25 09:00 06/16/25 09:01 Pantoprazole Inj 40 Mg Vial IVP 07/13/25 08:59 40 mg QDAY DENISSE Administration Simethicone 80 mg 06/16/25 12:00 06/16/25 11:19 Simethicone 80 Mg Chew PO 07/16/25 11:59 Not Given QID DENISSE Sodium Chloride 3 ml 06/13/25 01:29 Sodium Chloride Rt Naomi 0.9% 3 Ml Nebu INH 07/13/25 01:28 PRN PRN SOLN Sodium Hypochlorite 473 ml 06/16/25 09:00 Sod Hypochlorite 1/4 Str 473 Ml Btl IRRIG 07/16/25 08:59 DAILY DENISSE Tramadol HCl 50 mg 06/14/25 10:35 Tramadol Hcl 50 Mg Tablet PO 06/19/25 10:34 BID PRN PAIN SCALE 4-6 (Moderate Trazodone HCl 50 mg 06/14/25 21:00 06/15/25 20:23 Trazodone Hcl 50 Mg Tablet PO 07/14/25 20:59 50 mg HS DENISSE Administration Vancomycin HCl 125 mg 06/14/25 12:00 06/16/25 11:16 Vancomycin 125 Mg Capsule PO 06/24/25 06:01 125 mg QID DENISSE Administration Plan 64 year-old female with past medical history of coronary artery disease status post stents, peripheral artery disease, hypertension, type 2 diabete mellitus, dysphasia, esophageal stricture, recent ileostomy, and 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 Stool culture tested positive for C- Diff. Continue PO Vancomycin. KUB unremarkable. Probiotic and Simethicone added to her bowel regimen. #Dehydration - Likely from increased output into ileostomy and poor oral water intake - Presented to ED with hypotension (90/55) and elevated BUN:Cr ratio (30) - Continue with IV fluids, 2L of LR ordered today. - loperamide 4mg PO x 1 - Bentyl 10mg PO PRN ordered - Start Simethicone 80mg PO QID #Clostridium difficle Positive #Diarrhea loose stool since ileostomy bag placed in February 2025. - added Banatrol to diet -Contact precautions - C. diff positive, PO Vanco started 125 mg QID x10 days - Pending norovirus PCR - Pending Giardia antigen - KUB on 06/15/25 unremarkable. #Asymptomatic pyuria - Urine analysis: positve leukocyte esterase, 83 WBC, 5 hyaline cast - Afebrile, denies dysuria - Leukocytosis likely present from recent pyelonephritis - Urine culture on 06/12 grows E. faecalis - Not treatment indicated for asymptomatic UTI #Insomnia - Patient requested Benadryl as this is what usually helps her sleep - Diphehydramine 12.5 mg IVP x1 #Stage IV pressure ulcer of sacral area - Patient is scheduled with a plastic surgeon to evaluate her sacral wound in an outpatient clinic next Sunday - Percocet 1 tab Q6h for pain - Gabapentin 300mg PO BID - Follow up wound care outpatient - Dilaudid PRN #T2DM - Sliding scale insulin - IV dextrose protocol if hypoglycemic Health Maintenance Disposition: patient admitted to [facility] for dehydration DVT prophylaxis: Heparin 5,000 U subQ GI prophylaxis: Protonix 40mg Diet: regular+ Banatrol Lines: Peripheral IV CODE STATUS: FULL Case discussed with my senior resident Dr. Meza Case discussed with my attending Dr. Jalen Harry DO PGY 1 Attending Provider Attestation/Addendum Ivonne Sahni DO, attest that I was physically present for the jenkins portions of the service and evaluated the patient with the resident and I reviewed and discussed the case with the resident and agree with the resident's findings and plans of care as documented above Patient seen and evaluated this AM. She continues to complain of pain in her epigastric region, but abdomen is soft and stool appears more formed. Suspect gas pain. Will schedule simethicone. Ordered PT. Anticipate DC within next 24h.
[2025-06-16] MEDS: SOD HYPOCHLORITE 1/4 STR 473 ML BTL IRRIG (17:22)
[2025-06-17] VITALS (10 sets, daily range): BP systolic 97–115; BP diastolic 50–61; PULSE 64–98; RESP 16–20; TEMP 36.1–37.1; O2SAT 93–96; BMI 25.1
[2025-06-17] MEDS: HYDROmorphone INJ 2 MG/ML VIAL 0.5 MG IVP ×4 (01:32→09:50)
[2025-06-17] MEDS: VANCOMYCIN 125 MG CAPSULE PO ×4 (05:38→20:11)
[2025-06-17] MEDS: ONDANSETRON INJ 2 MG/ML INJ 2 ML 4 MG IVP (05:40)
[2025-06-17 06:18] LABS: Basophils # (Auto) 0.0 Thou/mm3 (0.0-0.2); Basophils % (Auto) 0 % (0-2.5); Eosinophils # (Auto) 0.1 Thou/mm3 (0.0-0.5); Eosinophils % (Auto) 2 % (0-10); Hematocrit 28.2 % (36.0-46.0); Hemoglobin 9.2 g/dL (12.0-16.0); Immature Granulocytes Auto 0.01 Thou/mm3 (0.00-0.00); Lymphocytes # (Auto) 2.7 Thou/mm3 (1.0-4.8); Lymphocytes % (Auto) 54 % (10-50); Mean Corpuscular HGB Conc 32.6 g/dl (31.0-37.0); Mean Corpuscular Hemoglobin 27.3 pg (25.0-35.0); Mean Corpuscular Volume 84 fL (80-100); Monocytes # (Auto) 0.4 Thou/mm3 (0.0-0.8); Monocytes % (Auto) 8 % (0-12); Neutrophils # (Auto) 1.8 Thou/mm3 (1.8-7.7); Neutrophils % (Auto) 35 % (37-80); Nucleated Red Blood Cell # 0.00 Thou/mm3 (0.00-0.00); Nucleated Red Blood Cell % 0 /100 WBC (0); Platelet Count 377 Thou/mm3 (140-440); RDW Standard Deviation 45.4 fL (36.4-46.3); Red Blood Count 3.37 Miln/mm3 (4.00-5.20); White Blood Count 5.0 Thou/mm3 (3.6-11.0)
[2025-06-17 06:57] LABS: Alanine Aminotransferase 8 U/L (10-49); Albumin, Serum 3.9 gm/dL (3.4-4.8); Albumin/Globulin Ratio 1.3 (1.2-2.2); Alkaline Phosphatase 113 U/L (46-116); Anion Gap 10 (7-16); Aspartate Amino Transferase 15 U/L (0-34); BUN/Creatinine Ratio 24 Ratio (12-20); Bilirubin,Total 0.2 mg/dL (0.3-1.2); Blood Urea Nitrogen 22 mg/dL (9-23); Calcium 9.4 mg/dL (8.3-10.6); Calcium (Corrected) 9.5 mg/dL (8.5-10.1); Carbon Dioxide 24.4 mMol/L (20.0-31.0); Chloride 104 mMol/L (98-107); Creatinine (Component) 0.9 mg/dL (0.6-1.3); Estimated Creatinine Clearance 54.1 mL/min (>60); Globulin 2.9 gm/dL (2.3-3.5); Glucose 107 mg/dL (74-106); Magnesium 1.6 mg/dL (1.6-2.6); Osmolality,Calculated 278 (275-295); Phosphorous 4.5 mg/dL (2.4-5.1); Potassium 4.7 mMol/L (3.4-5.1); Sodium 138 mMol/L (136-145); Total Protein 6.8 gm/dL (5.7-8.2); eGFR > 60 See Note
[2025-06-17] MEDS: LACTOBACILLUS RHAMNOSUS 1 CAP PO ×2 (09:30→20:12)
[2025-06-17] MEDS: Magnesium Sulfate 4 GM Ivpb 4 GM/50 ML BAG IV (09:30)
[2025-06-17] MEDS: GABAPENTIN 300 MG CAPSULE PO ×2 (09:30→20:11)
[2025-06-17] MEDS: HEPARIN SOD INJ 5000 UNIT/ML VIAL SC ×2 (09:30→20:12)
[2025-06-17] MEDS: SOD HYPOCHLORITE 1/4 STR 473 ML BTL IRRIG (09:52)
--- NOTE | 2025-06-17 13:00 | PC.SS ---
Addendum entered by RADHA Olivier 06/17/25 15:25: clinical documentation uploaded to [facility] case status All Documents Received. Original Note: SS follow up note; SS provided IMM to patient and patient's daughter, Bella. Patient's daughter contacted and provided Confirmation # [id number].
--- NOTE | 2025-06-17 18:12 | ESDS_ITS ---
<Statement entered by Ivonne Rao DO - 06/18/25 16:10> I, Ivonne Rao DO, attest that I was physically present for the jenkins portions of the service and evaluated the patient with the resident and I reviewed and discussed the case with the resident and agree with the resident's findings and plans of care as documented above Patient seen and eval this a.m. She complains of pain that has been controlled with Percocet. Will DC IV Dilaudid. Discussed with patient and daughter that she can continue oral vancomycin at home and to maintain hygiene by washing hands with soap and water. Family concerned that they have children at home. Patient has a history of using Percocet and primary doctor has been trying to taper patient from opioids with tramadol. However, patient complains that tramadol is not working well. She also states that she is concern for withdrawal from Percocet. However, explained to patient and daughter that she is on minimal IV Dilaudid. Patient also admitted that her primary doctor has been trying to taper her off opioids. Patient does not want to go home since they do not have isolation at home. Emphasized that family needs to maintain good hand hygiene. Will discharge patient home with a few days of Percocet as she has tramadol at home. Continue with oral vancomycin for another 7 days. Patient states that she has some dysuria. Will start patient on ciprofloxacin as well due to dysuria. Patient is stable for discharge home. However, patient stayed overnight due to appeal of discharge. <Statement entered by Boy Meza MD - 06/18/25 07:19> I discussed and supervised with the qa intern physician who took care of this patient. I personally saw and examined the patient. I agree with most of the as sessment and plan. Disclaimer: Despite multiple revisions, due to the dictation software being used, the document bellow may not be free of grammatical errors including phonetic/typographic errors. However, this does not deter from our commitment to providing health care in the patient's best interest in mind. Plan of care discussed with attending Physician Dr. Jalen Meza MD PGY-3 Planned Discharge Date 06/17/25 DS: Providers Provider Date of admission: 06/13/25 01:26 Primary care physician: Physician No Primary/Family Admitting Provider: Shawn Carbajal MD Attending Provider on Admission: Ivonne Rao DO Consults: 06/13/25 01:39 Referral Wound Care Stat Comment: sacral ulcer 06/13/25 13:15 Referral Physical Therapy Routine Comment: Physician Instructions: 06/15/25 12:41 Referral Nutritional Services Routine Comment: Wounds Attending Provider on DC: Ivonne Rao DO Discharging Provider: Johnathan Harry DO Anticipated date of discharge: 06/17/25 DS: Diagnosis Problem List Completed Was Problem List Reviewed/Reconciled?: Yes Hospital Course Hospital Course Hospital course: Mrs. Albarran is a 64-year-old female with past medical history significant for NM x2, coronary artery disease (status post aortic iliac stent placement), peripheral artery disease, hypertension, type 2 diabetes mellitus, dysphasia, es ophageal stricture, ileostomy, and stage IV sacral pressure ulcer admitted for dehydration. Pt reports since her ileostomy bag placement in February, she had been having loose stool in her ileostomy bag, leading to her dehydration and weakness. She was tested C. diff positive and started treatment with PO vancomycin on 06/14. Simethicone, probiotics, and Banatrol plus were also given to reduce her diarrhea and increase her stool consistency. Her urine culture was positive for E. faecalis and was put on Ciprofloxacin given her complaint of suprapubic pain today. Pt also reports chronic pain to her sacral ulcer and anterior abdomen abbess I&D site. Multimodal pain regimen were provided during her stay in the hospital. Pt advised to continue follow up with wound care team outpatient as well as with her surgeon in [place]. Stool consistency greatly improved, no high output liquid drainage noted in her ileostomy bag upon discharge. Pt is medically and physically stable for discharge. Diagnosis #Dehydration #Clostridium difficle colitis #Chronic Opioid dependence #Symptomatic UTI #Insomnia #Stage IV pressure ulcer of sacral area #T2DM Discharge Plan: Take PO vancomycin 125 mg four times a day for 8 more days to complete course for C difficle infection and Ciprofloxacin 500 mg twice a day for 3 days for UTI * Take Percocet 5/325 mg twice as needed for pain * Take all other home meds as prescribed * F/U with PCP as outpatient within a week * Follow up with plastic surgeon in [facility] as scheduled. * Follow up at [facility], [address] [place] [address]. Call [phone] for appointment * Wound care to coccyx, right buttocks and abdomen: wash hands and remove old dressings with packing. Irrigate well with Dakins solution or normal saline. Pack lightly with calcium alginate (coccyx and abdomen) Pack with strip packing (right buttocks) and cover with foam dressing once a day and as needed for failing off or soiling. * In case of emergency Call 911 or come back to the ED Case discussed with my senior resident Dr. Meza Case discussed with my attending Dr. Jalen Harry, PGY 1 Time Spent with Patient Time attestation: Total time spent providing and/or coordinating discharge services: Time spent: Greater than 30 minutes Exam Vital Signs Temp Pulse Resp BP Pulse Ox O2 Del Method 98 F 78 18 112/53 L 95 Room Air 06/17/25 16:00 06/17/25 16:00 06/17/25 16:00 06/17/25 16:00 06/17/25 16:00 06/17/25 16:00 Narrative Exam General: Well appearing, in no distress. Oriented x 3, normal mood and affect . Skin: Good turgor, no rash, unusual bruising or prominent lesions Heart: No cardiomegaly or thrills; regular rate and rhythm, no murmur or gallop Lungs: Clear to auscultation and percussion. No rales, wheeze, or rhonchi Abdomen: Ileostomy bag intact. Lower anterior abdominal wall wound open and packed. Back: Stage IV decubitus sacral ulcer, packed. Extremities: No amputations or deformities, cyanosis, edema or varicosities. Musculoskeletal: decreased muscle tone to all four extremities. Psychiatric: Oriented X3, intact recent and remote memory, judgment and insight, normal Discharge Plan Plan Patient Disposition: HOME (Self Care) Care Plan Goals: * Take PO vancomycin 125 mg four times a day for 8 more days to complete course for C difficle infection and Ciprofloxacin 500 mg twice a day for 3 days for UTI * Take Percocet 5/325 mg twice as needed for pain * Take all other home meds as prescribed * Follow up with primary care provider as outpatient within a week * Follow up with plastic surgeon in [facility] as scheduled. * Follow up at [facility], [address] [place] [address]. Call [phone] for appointment * Wound care to coccyx, right buttocks and abdomen: wash hands and remove old dressings with packing. Irrigate well with Dakins solution or normal saline. Pack lightly with calcium alginate (coccyx and abdomen) Pack with strip packing (right buttocks) and cover with foam dressing once a day and as needed for failing off or soiling. * In case of emergency Call 911 or come back to the ED Prescriptions/Referrals Prescriptions/Med Rec: New simethicone 80 mg Tablet,Chewable 80 mg PO QID PRN (Reason: Gas) Qty: 30 0RF Culturelle 10 billion cell Capsule 1 cap PO BID Qty: 30 0RF vancomycin 125 mg Capsule 125 mg PO QID 8 Days Qty: 32 0RF oxycodone-acetaminophen [Percocet] 5-325 mg tablet 1 tab PO Q8H MDD 2 PRN (Reason: pain) Qty: 14 0RF ciprofloxacin HCl 500 mg tablet 500 mg PO BID 2 Days Qty: 4 0RF Continued gabapentin 300 mg Capsule 300 mg PO BID tramadol 50 mg tablet 50 mg PO BID PRN (Reason: pain) Patient Comments: TAKE 50 MG TWICE A DAY BY ORAL ROUTE DIRECTED FOR 30 DAYS, FOR PAIN. clonazepam 1 mg tablet 1 mg PO BID Patient Comments: TAKE 1 TABLET BY MOUTH TWICE A DAY NEEDED FOR ANXIETY trazodone 50 mg Tablet 50 mg PO HS Qty: 30 0RF pantoprazole 40 mg Tablet,Delayed Release (Dr/Ec) 40 mg PO BID Qty: 90 0RF ondansetron 4 mg tablet,disintegrating 4 mg PO Q8H PRN (Reason: nausea and vomiting) Qty: 10 0RF Discontinued amoxicillin-pot clavulanate [Augmentin] 500-125 mg tablet 1 tab PO BID Qty: 8 0RF acetaminophen-codeine 300-30 mg tablet 2 tab PO Q8H MDD 6 PRN (Reason: pain) Qty: 20 0RF Referrals: No Primary/Family,Physician [Primary Care Provider] - Patient/Caregiver Discharge Instructions Education Materials: Incision Care, Pressure Injury Dc, Discharge Instructions ..., Changing Dressing Dc, Ileostomy: Nutritional Management Print Language: Mauritanian Stand Alone Forms: Ceci Award Info., Patient Portal Info Letter Discharge Order Discharge Orders: Discharge (Routine); Ordered 06/17/25 Ordered By: Boy Meza Quality Discharge Quality Measures none
[2025-06-17] MEDS: PHENAZOPYRIDINE HCL 100 MG TABLET PO (18:30)
[2025-06-17] MEDS: CIPROFLOXACIN HCL 250 MG TABLET 500 MG PO (20:11)
[2025-06-18] VITALS (7 sets, daily range): BP systolic 125–145; BP diastolic 66–68; PULSE 72–91; RESP 17–20; TEMP 36.2–37.2; O2SAT 95–97; BMI 25.1
[2025-06-18 05:26] LABS: Basophils # (Auto) 0.0 Thou/mm3 (0.0-0.2); Basophils % (Auto) 1 % (0-2.5); Eosinophils # (Auto) 0.1 Thou/mm3 (0.0-0.5); Eosinophils % (Auto) 2 % (0-10); Hematocrit 31.5 % (36.0-46.0); Hemoglobin 10.4 g/dL (12.0-16.0); Immature Granulocytes Auto 0.06 Thou/mm3 (0.00-0.00); Lymphocytes # (Auto) 2.8 Thou/mm3 (1.0-4.8); Lymphocytes % (Auto) 51 % (10-50); Mean Corpuscular HGB Conc 33.0 g/dl (31.0-37.0); Mean Corpuscular Hemoglobin 28.3 pg (25.0-35.0); Mean Corpuscular Volume 86 fL (80-100); Monocytes # (Auto) 0.4 Thou/mm3 (0.0-0.8); Monocytes % (Auto) 8 % (0-12); Neutrophils # (Auto) 2.1 Thou/mm3 (1.8-7.7); Neutrophils % (Auto) 38 % (37-80); Nucleated Red Blood Cell # 0.00 Thou/mm3 (0.00-0.00); Nucleated Red Blood Cell % 0 /100 WBC (0); Platelet Count 314 Thou/mm3 (140-440); RDW Standard Deviation 46.5 fL (36.4-46.3); Red Blood Count 3.68 Miln/mm3 (4.00-5.20); White Blood Count 5.4 Thou/mm3 (3.6-11.0)
[2025-06-18 06:04] LABS: Alanine Aminotransferase 8 U/L (10-49); Albumin, Serum 3.9 gm/dL (3.4-4.8); Albumin/Globulin Ratio 1.3 (1.2-2.2); Alkaline Phosphatase 117 U/L (46-116); Anion Gap 12 (7-16); Aspartate Amino Transferase 13 U/L (0-34); BUN/Creatinine Ratio 26 Ratio (12-20); Bilirubin,Total 0.2 mg/dL (0.3-1.2); Blood Urea Nitrogen 23 mg/dL (9-23); Calcium 9.6 mg/dL (8.3-10.6); Calcium (Corrected) 9.7 mg/dL (8.5-10.1); Carbon Dioxide 23.3 mMol/L (20.0-31.0); Chloride 105 mMol/L (98-107); Creatinine (Component) 0.9 mg/dL (0.6-1.3); Estimated Creatinine Clearance 54.1 mL/min (>60); Globulin 2.9 gm/dL (2.3-3.5); Glucose 130 mg/dL (74-106); Magnesium 1.7 mg/dL (1.6-2.6); Osmolality,Calculated 285 (275-295); Phosphorous 4.1 mg/dL (2.4-5.1); Potassium 4.7 mMol/L (3.4-5.1); Sodium 140 mMol/L (136-145); Total Protein 6.8 gm/dL (5.7-8.2); eGFR > 60 See Note
[2025-06-18] MEDS: VANCOMYCIN 125 MG CAPSULE PO ×2 (07:29→11:27)
[2025-06-18] MEDS: CIPROFLOXACIN HCL 250 MG TABLET 500 MG PO (09:52)
[2025-06-18] MEDS: PHENAZOPYRIDINE HCL 100 MG TABLET PO ×2 (09:52→11:26)
[2025-06-18] MEDS: PANTOPRAZOLE 40 MG TABLET PO (09:53)
[2025-06-18] MEDS: GABAPENTIN 300 MG CAPSULE PO (09:53)
[2025-06-18] MEDS: LACTOBACILLUS RHAMNOSUS 1 CAP PO (09:53)
[2025-06-18] MEDS: HEPARIN SOD INJ 5000 UNIT/ML VIAL SC (09:55)
[2025-06-18] MEDS: Magnesium Sulfate 4 GM Ivpb 4 GM/50 ML BAG IV (09:58)
[2025-06-18] MEDS: SOD HYPOCHLORITE 1/4 STR 473 ML BTL IRRIG (10:02)
--- NOTE | 2025-06-18 10:58 | ESDS_ITS ---
<Statement entered by Ivonne Rao DO - 06/18/25 18:42> I, Ivonne Rao DO, attest that I was physically present for the jenkins portions of the service and evaluated the patient with the resident and I reviewed and discussed the case with the resident and agree with the resident's findings and plans of care as documented above <Statement entered by Boy Meza MD - 06/18/25 17:01> I discussed and supervised with the computer science intern physician who took care of this patient. I personally saw and examined the patient. I agree with most of the assessment and plan. Disclaimer: Despite multiple revisions, due to the dictation software being used, the document bellow may not be free of grammatical errors including phonetic/typographic errors. However, this does not deter from our commitment to providing health care in the patient's best interest in mind. Plan of care discussed with attending Physician Dr. patel Meza MD PGY-3 Planned Discharge Date 06/18/25 DS: Providers Provider Date of admission: 06/13/25 01:26 Primary care physician: Physician No Primary/Family Admitting Provider: Shawn Carbajal MD Attending Provider on Admission: Ivonne Rao DO Consults: 06/13/25 01:39 Referral Wound Care Stat Comment: sacral ulcer 06/13/25 13:15 Referral Physical Therapy Routine Comment: Physician Instructions: 06/15/25 12:41 Referral Nutritional Services Routine Comment: Wounds Attending Provider on DC: Ivonne Rao DO Discharging Provider: Johnathan Harry DO Anticipated date of discharge: 06/18/25 DS: Diagnosis Problem List Completed Was Problem List Reviewed/Reconciled?: Yes Hospital Course Hospital Course Hospital course: Mrs. Albarran is a 64-year-old female with past medical history significant for [place] x2, coronary artery disease (status post aortic iliac stent placement), peripheral artery disease, hypertension, type 2 diabetes mellitus, dysphasia, esophageal stricture, ileostomy, and stage IV sacral pressure ulcer admitted for dehydration. Pt reports since her ileostomy bag placement in February, she had been having loose stool in her ileostomy bag, leading to her dehydration and weakness. She was tested C. diff positive and started treatment with PO vancomycin on 06/14. Simethicone, probiotics, and Banatrol plus were also given to reduce her diarrhea and increase her stool consistency. Her urine culture was positive for E. faecalis and was put on Ciprofloxacin given her complaint of suprapubic pain today. Pt also reports chronic pain to her sacral ulcer and anterior abdomen abbess I&D site. Multimodal pain regimen were provided during her stay in the hospital. Pt advised to continue follow up with wound care team outpatient as well as with her surgeon in [place]. Stool consistency greatly improved, no high output liquid drainage noted in her ileostomy bag upon discharge. Pt is medically and physically stable for discharge. Pt appealed for discharge yesterday on 06/17, no acute events overnight and pt continue to be stable for discharge today. Diagnosis #Dehydration #Clostridium difficle infection #Diarrhea #Symptomatic UTI #Insomnia #Stage IV pressure ulcer of sacral area #T2DM Discharge Plan: Take PO vancomycin 125 mg four times a day for 8 more days to complete course for C difficle infection and Ciprofloxacin 500 mg twice a day for 3 days for UTI * Take Percocet 5/325 mg twice as needed for pain * Take all other home meds as prescribed * F/U with PCP as outpatient within a week * Follow up with plastic surgeon in [facility] as scheduled. * Follow up at [facility], [address] [place] [address]. Call [phone] for appointment * Wound care to coccyx, right buttocks and abdomen: wash hands and remove old dressings with packing. Irrigate well with Dakins solution or normal saline. Pack lightly with calcium alginate (coccyx and abdomen) Pack with strip packing (right buttocks) and cover with foam dressing once a day and as needed for failing off or soiling. * In case of emergency Call 911 or come back to the ED Case discussed with my senior resident Dr. Meza Case discussed with my attending Dr. Patel Harry, PGY 1 Time Spent with Patient Time attestation: Total time spent providing and/or coordinating discharge services: Time spent: Greater than 30 minutes Exam Vital Signs Temp Pulse Resp BP Pulse Ox O2 Del Method 98.9 F 81 20 125/66 95 Room Air 06/18/25 04:00 06/18/25 07:25 06/18/25 07:25 06/18/25 04:00 06/18/25 07:06/18/25 04:00 Narrative Exam General: Well appearing, in no distress. Oriented x 3, normal mood and affect . Skin: Good turgor, no rash, unusual bruising or prominent lesions Heart: No cardiomegaly or thrills; regular rate and rhythm, no murmur or gallop Lungs: Clear to auscultation and percussion. No rales, wheeze, or rhonchi Abdomen: Ileostomy bag intact. Lower anterior abdominal wall wound open and packed. Back: Stage IV decubitus sacral ulcer, packed. Extremities: No amputations or deformities, cyanosis, edema or varicosities. Musculoskeletal: decreased muscle tone to all four extremities. Psychiatric: Oriented X3, intact recent and remote memory, judgment and insight, normal Discharge Plan Plan Patient Disposition: HOME (Self Care) Care Plan Goals: * Take PO vancomycin 125 mg four times a day for 8 more days to complete course for C difficle infection and Ciprofloxacin 500 mg twice a day for 3 days for UTI * Take Percocet 5/325 mg twice as needed for pain * Take all other home meds as prescribed * Follow up with primary care provider as outpatient within a week * Follow up with plastic surgeon in [facility] as scheduled. * Follow up at [facility], [address] [place] [address]. Call [phone] for appointment * Wound care to coccyx, right buttocks and abdomen: wash hands and remove old dressings with packing. Irrigate well with Dakins solution or normal saline. Pack lightly with calcium alginate (coccyx and abdomen) Pack with strip packing (right buttocks) and cover with foam dressing once a day and as needed for failing off or soiling. * In case of emergency Call 911 or come back to the ED Prescriptions/Referrals Prescriptions/Med Rec: New simethicone 80 mg Tablet,Chewable 80 mg PO QID PRN (Reason: Gas) Qty: 30 0RF Culturelle 10 billion cell Capsule 1 cap PO BID Qty: 30 0RF vancomycin 125 mg Capsule 125 mg PO QID 8 Days Qty: 32 0RF oxycodone-acetaminophen [Percocet] 5-325 mg tablet 1 tab PO Q8H MDD 2 PRN (Reason: pain) Qty: 14 0RF ciprofloxacin HCl 500 mg tablet 500 mg PO BID 2 Days Qty: 4 0RF Continued gabapentin 300 mg Capsule 300 mg PO BID tramadol 50 mg tablet 50 mg PO BID PRN (Reason: pain) Patient Comments: TAKE 50 MG TWICE A DAY BY ORAL ROUTE DIRECTED FOR 30 DAYS, FOR PAIN. clonazepam 1 mg tablet 1 mg PO BID Patient Comments: TAKE 1 TABLET BY MOUTH TWICE A DAY NEEDED FOR ANXIETY trazodone 50 mg Tablet 50 mg PO HS Qty: 30 0RF pantoprazole 40 mg Tablet,Delayed Release (Dr/Ec) 40 mg PO BID Qty: 90 0RF ondansetron 4 mg tablet,disintegrating 4 mg PO Q8H PRN (Reason: nausea and vomiting) Qty: 10 0RF Discontinued amoxicillin-pot clavulanate [Augmentin] 500-125 mg tablet 1 tab PO BID Qty: 8 0RF acetaminophen-codeine 300-30 mg tablet 2 tab PO Q8H MDD 6 PRN (Reason: pain) Qty: 20 0RF Referrals: No Primary/Family,Physician [Primary Care Provider] - Patient/Caregiver Discharge Instructions Education Materials: Incision Care, Pressure Injury Dc, Discharge Instructions ..., Changing Dressing Dc, Ileostomy: Nutritional Management Print Language: Nigerian Stand Alone Forms: Ceci Award Info., Patient Portal Info Letter Discharge Order Discharge Orders: Discharge (Routine); Ordered 06/17/25 Ordered By: Boy Meza Quality Discharge Quality Measures none
[2025-06-19 06:27] LABS: Giardia Result NOT DETECTED; Norovirus, EIA (Stool)* NOT DETECTED
== END 2025-06-18 12:02 | disposition home or self-care (01) | DRG 640 ==
LOC: SERX 06-13 01:16 → SERHOLD 06-13 02:14 → S3SX 06-13 04:49
PROVIDERS: Student in an Organized Health Care Education/Training Program; Admitting Provider Internal Medicine; Emergency Provider Emergency Medicine; Visit Provider Internal Medicine
DX: E86.0 Dehydration (principal); L89.154 Pressure ulcer of sacral region, stage 4; A04.72 Enterocolitis due to Clostridium difficile, not specified as recurrent; N39.0 Urinary tract infection, site not specified; F11.20 Opioid dependence, uncomplicated; M54.50 Low back pain, unspecified; Z93.2 Ileostomy status; I25.2 Old myocardial infarction; I10 Essential (primary) hypertension; I25.10 Atherosclerotic heart disease of native coronary artery without angina pectoris; K21.9 Gastro-esophageal reflux disease without esophagitis; G47.00 Insomnia, unspecified; I73.9 Peripheral vascular disease, unspecified; E11.9 Type 2 diabetes mellitus without complications; E11.51 Type 2 diabetes mellitus with diabetic peripheral angiopathy without gangrene; G89.29 Other chronic pain; Z79.899 Other long term (current) drug therapy; Z86.73 Personal history of transient ischemic attack (TIA), and cerebral infarction without residual deficits; Z87.891 Personal history of nicotine dependence; Z95.5 Presence of coronary angioplasty implant and graft; Z98.1 Arthrodesis status; Z88.5 Allergy status to narcotic agent
CPT/HCPCS: 36415; 71250; 74018; 74176; 80053; 80069; 81001; 82150; 82248; 83605; 83690; 83735; 84100; 84145; 85025; 85610; 85652; 85730; 86140; 87015; 87040; 87045; 87046; 87077; 87081; 87086; 87186; 87205; 87329; 87400; 87449; 87493; 87811; 87899; 93005; 93225; 96361; 96365; 96375; 96376; J0696; J1171; J1200; J1644; J1815; J2270; J2405; J2470; J3475; J7030; J7120; A9270

== ENCOUNTER 2025-06-22 19:08 | Emergency (ER) | payer MEDICARE, BC, SELFPAY ==
[2025-06-22 19:11] VITALS: BMI 25.6
[2025-06-22 19:24] VITALS: BP 102/50; PULSE 126; RESP 19; TEMP 37.7; O2SAT 100
[2025-06-22 19:25] VITALS: PULSE 120; RESP 20; O2SAT 99
--- NOTE | 2025-06-22 22:00 | PD.EDDIZZY ---
ED Dizzyness RME/HPI General Chief Complaint: Dizziness Stated Complaint: HYPOTENSION Arrival date/time: 06/22/25 19:08 RME / HPI RME / HPI Narrative: DR. 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 Daughter was assisting patient up to change her illeostomy bag, but patient felt like she needed to lay back down. Daughter asked patient if she felt like she was having another [place], but patient denied it. Patient reports an allergy to Vicodin, Morphine, and IV contrast. She is requesting pain medication with IV Benadryl. No other concerns or complaints expressed at this time. Related Data Home Medications ?Medication ?Instructions ?Recorded ?Confirmed gabapentin 300 mg capsule 300 mg PO BID 10/19/24 06/13/25 clonazepam 1 mg tablet 1 mg PO BID 01/29/25 06/13/25 tramadol 50 mg tablet 50 mg PO BID PRN pain 06/13/25 06/13/25 Previous Rx's ?Medication ?Instructions ?Recorded pantoprazole 40 mg tablet,delayed 40 mg PO BID #90 tabs 02/05/25 release trazodone 50 mg tablet 50 mg PO HS #30 tabs 02/05/25 ondansetron 4 mg disintegrating 4 mg PO Q8H PRN nausea and 02/18/25 tablet vomiting #10 tabs Lactobacillus rhamnosus GG 10 1 cap PO BID #30 caps 06/16/25 billion cell capsule (Culturelle) simethicone 80 mg chewable tablet 80 mg PO QID PRN Gas #30 tabs 06/16/25 oxycodone-acetaminophen 5 mg-325 1 tab PO Q8H PRN pain #14 tabs 06/17/25 mg tablet (Percocet) vancomycin 125 mg capsule 125 mg PO QID 8 days #32 caps 06/17/25 Allergies Allergy/AdvReac Type Severity Reaction Status Date / Time codeine Allergy Severe HIVES Verified 02/18/25 07:34 hydrocodone Allergy Severe RASH AND Verified 02/18/25 07:34 SWELLING Iodinated Contrast Media Allergy Severe Hives Verified 02/18/25 07:34 Review of Systems Review of Systems Systems Reviewed: All systems reviewed, normal except as documented Past Medical History Past Medical History NEUROLOGIC: Positive Neurological Disorders, Cerebrovascular Accident and Transient Ischemic Attacks (TIA) CARDIAC: Positive Cardiac Disorders, Myocardial Infarction, Coronary Artery Disease, Hypercholesterolemia and Hypertension GASTROINTESTINAL: Positive Gastrointestinal Disorders, Colitis, Diverticulitis, Diverticulosis and Gastroesophageal Reflux Disease REPRODUCTIVE: Positive Previous Pregnancies MUSCULOSKELETAL: Positive Musculoskeletal Disorders, Arthritis and Carpal Tunnel Syndrome ENDOCRINE: Positive Endocrine Disorders, Diabetes Mellitus Type 2 and Hyperthyroidism PSYCHO/SOCIAL: Positive Anxiety OTHER HISTORY: Positive Falls and Chicken Pox Family History FAMILY HISTORY: Positive Family Cancer Surgical History SURGICAL: Positive Cardiac Surgery, Coronary Stent, Tonsillectomy, Tubal Ligation and Section Social History SMOKING STATUS: Former smoker ED Exam Narrative Physical exam: Generally patient is alert and chronically ill-appearing, heart currently is regular rate and rhythm with heart rate of 96. Lungs clear to auscultation equal bilaterally, abdomen is distended somewhat tympanic right-sided ileostomy with thin brown stool output. Nontender. Extremities showed no edema. Neurologic exam shows the patient be alert and oriented x 4 without focal motor deficits. Course Course Course Narrative: CXR is ordered for determining the etiology of shortness of breath. Quality Measures none Orders Category Date Time Status EKG (ED ONLY) *Do not use* NOW Care 06/22/25 19:36 Completed EKG (ED Only) Stat Exams 06/22/25 19:36 Ordered CBC Stat Lab 06/22/25 22:13 Completed CMP [Comprehensive Metabolic Panel] Stat Lab 06/22/25 22:13 Completed Troponin I Stat Lab 06/22/25 22:13 Completed DiphenhydrAMINE INJ [Benadryl Inj] Med 06/22/25 22:01 Discontinued 50 mg IVP X1 ONE Morphine Inj Med 06/22/25 23:11 Discontinued 4 mg IVP X1 ONE Sodium Chloride 0.9% 1000 ml [Ns] 1,000 ml Med 06/22/25 22:01 Discontinued IV 999 mls/hr Vital Signs Vital signs: Vital Signs Temperature 99.8 F 06/22/25 19:24 Pulse Rate 126 H 06/22/25 19:24 Respiratory Rate 19 06/22/25 19:24 Blood Pressure 102/50 L 06/22/25 19:24 Pulse Oximetry (%) 100 06/22/25 19:24 Oxygen Delivery Method Nasal Cannula 06/22/25 19:24 Oxygen Flow Rate 2 06/22/25 19:24 Dizziness MDM Narrative MDM Narrative:: Scribe Attestation: I, Sigrid Brock, am scribing for and in the presence of Dr. Escamilla. Provider Notation: Although this document has been carefully reviewed, there may still be some phonetic and other typographical errors.? These errors are purely grammatical due to imperfections in the software program and should not be construed in any way to? compromise the substance of the patient's medical care during this visit. Patient was asking for Benadryl which she states usually helps her with pain and allows her to sleep. Patient was given Benadryl 50 mg IV here in the emergency room. Patient then required morphine 4 mg IV for pain. Patient was hydrated with a total of 2 L of IV normal saline with subsequent blood pressure of 140/71. Heart rate remained in the 90s. Patient apparently was hypotensive at scene with systolic blood pressure in the 80s and heart rate in the 130s. Patient has not been hypotensive or tachycardic since receiving IV fluid therapy. Lab work is checked. I interpreted all labs. There was no significant abnormality. Original EKG upon presentation at 7:32 PM shows sinus tachycardia at a rate of 117 without ischemic change or ectopy. I had a long discussion with the patient the patient feels well and wishes to go home. Patient will be discharged in stable condition with instructions to return to the emergency room as needed or if condition worsens. I did review the patient's past medical history in the computer. Patient data External records reviewed:: [facility] previous records (Reviewed prior ED records from 06/12/25. Patient was seen for Decubitus ulcer of sacral region, stage 4.) and EMS form Clinical information provided by:: patient Social determinants that could affect healthcare access:: none Patient has the following chronic illnesses:: Coronary Artery Disease, Hypercholesterolemia, Hypertension, Colitis, Diverticulitis, Diverticulosis, Gastroesophageal Reflux Disease, Arthritis and Carpal Tunnel Syndrome, Diabetes Mellitus Type 2, Hyperthyroidism, Anxiety How is presenting disease/condition affected by chronic disease/condition?: exacerbated by Evaluation data The following diagnostics were reviewed and interpreted by me:: lab results and EKG tracing(s) Lab and/or radiology exams considered but not ordered:: None Interpretation Summary: Refer to MDM above. Medications / Prescriptions Medications or Prescriptions considered but not ordered:: None Medication administrations:: Medication Administration History Discontinued Medications Diphenhydramine HCl (Diphenhydramine Inj 50 Mg/Ml Vial) 50 mg IVP X1 ONE Stop: 06/22/25 22:02 Last Admin: 06/22/25 22:30 Dose: 50 mg Documented By: CCT Sodium Chloride (Ns) 1,000 mls @ 999 mls/hr IV .Q1H1M ONE Stop: 06/22/25 23:01 Last Admin: 06/22/25 22:31 Dose: 999 mls/hr Documented By: CCT Morphine Sulfate (Morphine Sulf Inj 10 Mg/Ml Vial) 4 mg IVP X1 ONE Stop: 06/22/25 23:12 See above if any. Consultations Consultation(s) initiated? (list below): No Diagnosis Dizziness Differential Diagnosis: adverse reaction to drug, benign paroxysmal positional vertigo, orthostatic hypotension, vertebral basilar insufficiency, acute vestibular neuronitis and other (STEMI, Non-STEMI, ) Most likely diagnosis given after review of the tests above:: none Admission Indicated Admission indicated?: not indicated Explain why admission is indicated or not indicated:: Patient does not meet admission criteria. Admission Request Was there a request for admission?: No Disposition Plan Disposition Plan: Discharge Discharge Attestation Discharge Attestation: The patient and all family members were given an opportunity to ask questions and understood the discharge instructions. Discharge instructions specifically effects, indications for sooner follow up or return to the emergency department, and the expected course of current diagnosis. Patient condition: Stable Discharge Plan Plan Patient Disposition: HOME (Self Care) Prescriptions/Referrals Prescriptions/Med Rec: No Action gabapentin 300 mg Capsule 300 mg PO BID tramadol 50 mg tablet 50 mg PO BID PRN (Reason: pain) Patient Comments: TAKE 50 MG TWICE A DAY BY ORAL ROUTE DIRECTED FOR 30 DAYS, FOR PAIN. simethicone 80 mg Tablet,Chewable 80 mg PO QID PRN (Reason: Gas) Qty: 30 0RF Culturelle 10 billion cell Capsule 1 cap PO BID Qty: 30 0RF vancomycin 125 mg Capsule 125 mg PO QID 8 Days Qty: 32 0RF oxycodone-acetaminophen [Percocet] 5-325 mg tablet 1 tab PO Q8H MDD 2 PRN (Reason: pain) Qty: 14 0RF clonazepam 1 mg tablet 1 mg PO BID Patient Comments: TAKE 1 TABLET BY MOUTH TWICE A DAY NEEDED FOR ANXIETY trazodone 50 mg Tablet 50 mg PO HS Qty: 30 0RF pantoprazole 40 mg Tablet,Delayed Release (Dr/Ec) 40 mg PO BID Qty: 90 0RF ondansetron 4 mg tablet,disintegrating 4 mg PO Q8H PRN (Reason: nausea and vomiting) Qty: 10 0RF Referrals: Sun Webb, NOVELTY PRINTING MACHINE OPERATOR [Primary Care Provider] - In 1 week Problem List Clinical Impression: Hypotension Patient/Caregiver Discharge Instructions Additional Instructions: Continue current medications. Stay well-hydrated. Follow-up with your doctor. Return to ER as needed or if condition worsens. Print Language: Swedish Stand Alone Forms: Ceci Award Info., Patient Portal Info Letter
[2025-06-22 22:06] VITALS: BP 140/71; PULSE 96; RESP 18; TEMP 36.8; O2SAT 100
[2025-06-22] MEDS: SODIUM CHLORIDE 0.9% 1000 ML 1,000 ML 999 ML IV (22:31)
[2025-06-22 22:36] LABS: Basophils # (Auto) 0.0 Thou/mm3 (0.0-0.2); Basophils % (Auto) 0 % (0-2.5); Eosinophils # (Auto) 0.1 Thou/mm3 (0.0-0.5); Eosinophils % (Auto) 1 % (0-10); Hematocrit 34.2 % (36.0-46.0); Hemoglobin 11.0 g/dL (12.0-16.0); Immature Granulocytes Auto 0.02 Thou/mm3 (0.00-0.00); Lymphocytes # (Auto) 3.2 Thou/mm3 (1.0-4.8); Lymphocytes % (Auto) 41 % (10-50); Mean Corpuscular HGB Conc 32.2 g/dl (31.0-37.0); Mean Corpuscular Hemoglobin 27.6 pg (25.0-35.0); Mean Corpuscular Volume 86 fL (80-100); Monocytes # (Auto) 0.7 Thou/mm3 (0.0-0.8); Monocytes % (Auto) 9 % (0-12); Neutrophils # (Auto) 3.9 Thou/mm3 (1.8-7.7); Neutrophils % (Auto) 49 % (37-80); Nucleated Red Blood Cell # 0.00 Thou/mm3 (0.00-0.00); Nucleated Red Blood Cell % 0 /100 WBC (0); Platelet Count 368 Thou/mm3 (140-440); RDW Standard Deviation 47.8 fL (36.4-46.3); Red Blood Count 3.98 Miln/mm3 (4.00-5.20); White Blood Count 7.9 Thou/mm3 (3.6-11.0)
[2025-06-22 22:54] LABS: Alanine Aminotransferase 13 U/L (10-49); Albumin, Serum 4.2 gm/dL (3.4-4.8); Albumin/Globulin Ratio 1.3 (1.2-2.2); Alkaline Phosphatase 131 U/L (46-116); Anion Gap 11 (7-16); Aspartate Amino Transferase 14 U/L (0-34); BUN/Creatinine Ratio 28 Ratio (12-20); Bilirubin,Total 0.2 mg/dL (0.3-1.2); Blood Urea Nitrogen 31 mg/dL (9-23); Calcium 9.8 mg/dL (8.3-10.6); Calcium (Corrected) 9.8 mg/dL (8.5-10.1); Carbon Dioxide 20.8 mMol/L (20.0-31.0); Chloride 107 mMol/L (98-107); Creatinine (Component) 1.1 mg/dL (0.6-1.3); Estimated Creatinine Clearance 44.6 mL/min (>60); Globulin 3.2 gm/dL (2.3-3.5); Glucose 149 mg/dL (74-106); Osmolality,Calculated 287 (275-295); Potassium 3.9 mMol/L (3.4-5.1); Sodium 139 mMol/L (136-145); Total Protein 7.4 gm/dL (5.7-8.2); Troponin I < 0.020 ng/mL (0.0-0.045); eGFR 56 See Note
[2025-06-22 23:45] VITALS: BP 154/79; PULSE 91; RESP 18; TEMP 36.9; O2SAT 98
[2025-06-22] MEDS: MORPHINE SULF INJ 10 MG/ML VIAL 4 MG IVP (23:47)
[2025-06-23 00:30] VITALS: BP 123/71; PULSE 91; RESP 18; TEMP 36.7; O2SAT 100
== END 2025-06-23 00:30 | disposition home or self-care (01) ==
PROVIDERS: Emergency Provider Emergency Medicine; PCP Nurse Practitioner Family
DX: I95.9 Hypotension, unspecified (principal); R00.0 Tachycardia, unspecified
CPT/HCPCS: 36415; 80053; 84484; 85025; 93005; 96361; 96374; 96375; 99283; J1200; J2270; J7030

== ENCOUNTER 2025-06-27 14:37 | Emergency (ER) | payer MEDICARE, BC, SELFPAY ==
[2025-06-27] VITALS (14 sets, daily range): BP systolic 105–163; BP diastolic 56–82; PULSE 92–118; RESP 10–20; TEMP 36.5–36.7; O2SAT 95–99; BMI 25.6
--- NOTE | 2025-06-27 15:45 | XR_ITS ---
Examination: CT abdomen with intravenous contrast CT pelvis with intravenous contrast 2-D coronal reconstructions 2-D sagittal reconstructions Date and time of exam:June 27, 2025 1700 hours Comparison June 12, 2025 INDICATIONS: Nausea vomiting beginning 7:00 AM today, history large soft tissue defect posterior pelvis to the right of the sacrum. CTDI: vol (mGy) 6.5 DLP: (mGycm) 339 Technique: Multiple axial sections of the abdomen and pelvis have been obtained. 64 slice high-resolution scanner used. 3 mm axial sections have been obtained, post intravenous injection of 60 cc of Isovue 370. 2-D sagittal, coronal reconstructions obtained. Low dose protocols were performed. One or more of the following dose reduction techniques were used; automated exposure control, adjustment of the mA and/or KV according to patient size, use of iterative reconstruction technique. Findings: No focal liver or splenic lesions Absent gallbladder Common bile duct 8 mm no definite stones No pancreatic or adrenal mass. Bilateral small renal calcifications, no hydronephrosis or ureteral calculi Severe abdominal aortic calcification with aortoiliac stent No bowel obstruction Right ileostomy The appendix is fluid-filled and mildly thickened, axial images 119 through 132 without definite periappendiceal inflammatory change No diverticulitis Urinary bladder intact Atrophic uterus Large soft tissue defect posterior pelvis, for instance axial image 190, no shirley cortical bone destruction of the sacrum or coccyx, no drainable fluid filled abscess Inflammation around the anus without perianal abscess Extensive transpedicular lumbar fusion L3-S1 IMPRESSION: Common bile duct 8 mm no definite stones, recommend hepatobiliary sonography follow-up The appendix is fluid-filled and mildly thickened without definite periappendiceal inflammatory change, the appearance should be clinically correlated. No bowel obstruction Again noted large soft tissue defect in the posterior pelvis described above
--- NOTE | 2025-06-27 15:45 | EKG_ITS ---
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
--- NOTE | 2025-06-27 15:46 | XR_ITS ---
Examination: AP chest single view Technique one AP portable semiupright chest single view. Date and time: June 27, 2025, 1549 hours, comparison June 06, 2025 INDICATIONS: Onset chest pain today. FINDINGS: Normal heart size. Lungs are clear. Moderate osteopenia. IMPRESSION: No active disease.
--- NOTE | 2025-06-27 15:48 | PD.EDNV ---
Nausea/Vomit./Diarrhea-RME/HPI General Chief complaint: Nausea/Vomiting/Diarrhea Stated complaint: WEAKNESS, DIZZINESS, ABD PAIN Time Seen by Provider: 06/27/25 14:58 Arrival date/time: 06/27/25 14:37 RME / HPI RME / HPI Narrative: 64-year-old female patient was brought in by EMS for evaluation regarding nausea and vomiting. Patient woke up this morning with nausea vomiting and abdominal pain. Severity of symptoms moderate. Patient denies any fever. Patient had colostomy, several years ago, and healing pressure ulcer in the sacrum. Patient's colostomy is working according to her. Denies any other complaints. Related Data Home Medications ?Medication ?Instructions ?Recorded ?Confirmed gabapentin 300 mg capsule 300 mg PO BID 10/19/24 06/13/25 clonazepam 1 mg tablet 1 mg PO BID 01/29/25 06/13/25 tramadol 50 mg tablet 50 mg PO BID PRN pain 06/13/25 06/13/25 Previous Rx's ?Medication ?Instructions ?Recorded pantoprazole 40 mg tablet,delayed 40 mg PO BID #90 tabs 02/05/25 release trazodone 50 mg tablet 50 mg PO HS #30 tabs 02/05/25 ondansetron 4 mg disintegrating 4 mg PO Q8H PRN nausea and 02/18/25 tablet vomiting #10 tabs Lactobacillus rhamnosus GG 10 1 cap PO BID #30 caps 06/16/25 billion cell capsule (Culturelle) simethicone 80 mg chewable tablet 80 mg PO QID PRN Gas #30 tabs 06/16/25 oxycodone-acetaminophen 5 mg-325 1 tab PO Q8H PRN pain #14 tabs 06/17/25 mg tablet (Percocet) metoclopramide HCl 10 mg tablet 10 mg PO Q6H PRN nausea and 06/27/25 (Reglan) vomiting #20 tabs pantoprazole 40 mg tablet,delayed 40 mg PO QDAY #20 tabs 06/27/25 release (Protonix) tramadol 37.5 mg-acetaminophen 325 1 tab PO TID PRN pain 5 days #20 06/27/25 mg tablet tabs Allergies Allergy/AdvReac Type Severity Reaction Status Date / Time codeine Allergy Severe HIVES Verified 06/27/25 15:04 hydrocodone Allergy Severe RASH AND Verified 06/27/25 15:04 SWELLING Iodinated Contrast Media Allergy Severe Hives Verified 06/27/25 15:04 Review of Systems Review of Systems Narrative Review of Systems: Review of system reviewed and within normal limits except mentioned in HPI ED Exam Narrative Physical exam: VITAL SIGNS: Reviewed. GENERAL APPEARANCE: Alert and interactive, follows commands, no acute distress, HEAD AND FACE: Non-traumatic. ENT: PERRL, pink conjunctivitis, eyelid no trauma, Mucous membrane moist. NECK: Supple, nontender, no nuchal rigidity. CHEST: No tenderness, no crepitus, no paradoxical movement, no retractions. LUNGS: Clear, well ventilated, symmetric, no rales, no wheezing, no ronchi, no stridor, good breath sounds bilaterally. HEART: Regular rate, regular rhythm, no murmur, no gallops. ABDOMEN: Soft, positive bowel sounds, nondistended, no guarding, diffuse tenderness, not distended, colostomy working with fecal material, no rebound, no masses, RECTAL: Healing sacral ulcer noted no drainage noted GENITAL: Deferred. NEUROLOGICAL: Gross motor function intact sensory function intact, Appropriate for age. MUSCULOSKELETAL: low back nontender, full range of motion. EXTREMITIES: Nontender, full range of motion. SKIN: Color pink, dry, no rash, no lacerations, no abrasions, no contusions. LYMPHATICS: Deferred. Course Quality Measures none Orders Category Date Time Status CT Screening NOW Care 06/27/25 15:46 Active EKG (ED ONLY) *Do not use* NOW Care 06/27/25 15:[address] abdomen pelvis w con Stat Exams 06/27/25 15:45 Completed EKG (ED Only) Stat Exams 06/27/25 15:45 Draft XR chest 1V Stat Exams 06/27/25 15:46 Completed CBC Stat Lab 06/27/25 15:40 Completed Comprehensive Metabolic Panel Stat Lab 06/27/25 15:40 Completed Lipase Stat Lab 06/27/25 15:40 Completed Prothrombin Time with INR Stat Lab 06/27/25 15:40 Completed UA, C/S IF [Urinalysis, C/S if Indicated] Stat Lab 06/27/25 17:43 Completed Urine Culture Stat Lab 06/27/25 17:43 Received DiphenhydrAMINE INJ [Benadryl Inj] Med 06/27/25 15:45 Discontinued 50 mg IVP X1 ONE Famotidine Inj [Pepcid Inj] Med 06/27/25 15:45 Discontinued 20 mg IVP X1 ONE Metoclopramide Inj [Reglan Inj] Med 06/27/25 15:45 Discontinued 10 mg IVP X1 ONE Morphine Inj Med 06/27/25 15:47 Discontinued 4 mg IVP X1 ONE Morphine Inj Med 06/27/25 18:41 Discontinued 4 mg IVP X1 ONE Ondansetron Inj [Zofran Inj] Med 06/27/25 18:43 Discontinued 4 mg IVP X1 ONE Ringers Lactated 1000 ml [Lactated Ringers] 1,000 ml Med 06/27/25 15:48 Discontinued IV 999 mls/hr Ringers Lactated 1000 ml [Lactated Ringers] 1,000 ml Med 06/27/25 18:41 Discontinued IV 999 mls/hr Vital Signs Vital signs: Vital Signs Temperature 97.8 F 06/27/25 14:40 Pulse Rate 104 H 06/27/25 14:40 Respiratory Rate 18 06/27/25 14:40 Blood Pressure 135/77 H 06/27/25 14:40 Pulse Oximetry (%) 96 06/27/25 14:40 Oxygen Delivery Method Room Air 06/27/25 14:40 Nausea/Vomiting/Diarrhea MDM Narrative MDM Narrative:: 64-year-old female patient was brought in by EMS for evaluation regarding nausea and vomiting. Patient woke up this morning with nausea vomiting and abdominal pain. Severity of symptoms moderate. Patient denies any fever. Patient had colostomy, several years ago, and healing pressure ulcer in the sacrum. Patient's colostomy is working according to her. Denies any other complaints. EKG shows sinus tachycardia, ventricular rate of 115 bpm, AK interval 150 MS, no ST segment elevation or depression noted. Patient's workup is significant for slight leukocytosis of 11.1 urinalysis no UTI CO2 was noted to be slightly low 14.5 blood sugar 138 with no sign of DKA. CT scan of the abdomen pelvis showed Common bile duct 8 mm no definite stones, recommend hepatobiliary sonography follow-up The appendix is fluid-filled and mildly thickened without definite periappendiceal inflammatory change, the appearance should be clinically correlated. No bowel obstruction Again noted large soft tissue defect in the posterior pelvis described above Clinically there is no tenderness to the right lower quadrant. Even on deep palpation. Patient was given 2 L of IV fluids, Reglan Zofran and morphine. Prior to discharge patient is no more abdominal pain. 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 diabetes mellitus GERD How is presenting disease/condition affected by chronic disease/condition?: exacerbated by Evaluation data The following diagnostics were reviewed and interpreted by me:: lab results, radiology exam(s) and EKG tracing(s) Lab and/or radiology exams considered but not ordered:: None Interpretation Summary: See results MDM Medications / Prescriptions Medications / Prescriptions considered but not ordered:: None Medication administrations:: Medication Administration History Discontinued Medications Diphenhydramine HCl (Diphenhydramine Inj 50 Mg/Ml Vial) 50 mg IVP X1 ONE Stop: 06/27/25 15:46 Last Admin: 06/27/25 16:26 Dose: 50 mg Documented By: AYAN Famotidine (Famotidine Inj 10 Mg/Ml Vial 2 Ml) 20 mg IVP X1 ONE Stop: 06/27/25 15:46 Last Admin: 06/27/25 16:25 Dose: 20 mg Documented By: CG Lactated Ringer's (Lactated Ringers) 1,000 mls @ 999 mls/hr IV .Q1H1M ONE Stop: 06/27/25 16:48 Last Infusion: 06/27/25 17:53 Dose: Infused Documented By: Admin: 06/27/25 16:25 Dose: 999 mls/hr Documented By: CG Lactated Ringer's (Lactated Ringers) 1,000 mls @ 999 mls/hr IV .Q1H1M ONE Stop: 06/27/25 19:41 Last Admin: 06/27/25 19:12 Dose: 999 mls/hr Documented By: AYAN Metoclopramide HCl (Metoclopramide Inj 5 Mg/Ml Vial 2 Ml) 10 mg IVP X1 ONE; Protocol Stop: 06/27/25 15:46 Last Admin: 06/27/25 16:25 Dose: 10 mg Documented By: CG Morphine Sulfate (Morphine Sulf Inj 10 Mg/Ml Vial) 4 mg IVP X1 ONE Stop: 06/27/25 15:48 Last Admin: 06/27/25 16:25 Dose: 4 mg Documented By: CG Morphine Sulfate (Morphine Sulf Inj 10 Mg/Ml Vial) 4 mg IVP X1 ONE Stop: 06/27/25 18:42 Last Admin: 06/27/25 19:11 Dose: 4 mg Documented By: AYAN Ondansetron HCl (Ondansetron Inj 2 Mg/Ml Inj 2 Ml) 4 mg IVP X1 ONE; Protocol Stop: 06/27/25 18:44 Last Admin: 06/27/25 19:12 Dose: 4 mg Documented By: AYAN Benadryl, Pepcid, IV fluids, Reglan, morphine, Zofran Consultations Consultation(s) initiated? (list below): No Diagnosis Nausea Differential Diagnosis: gastroenteritis, drug-induced nausea and vomiting and dehydration Most likely diagnosis given after review of the tests above:: Abdominal pain Admission Indicated Admission indicated?: not indicated Explain why admission is indicated or not indicated:: Stable Admission Request Was there a request for admission?: No Disposition Plan Disposition Plan: Discharge Discharge Attestation Discharge Attestation: The patient was given an opportunity to ask questions and understood the discharge instructions. Discharge instructions specifically effects, indications for sooner follow up or return to the emergency department, and the expected course of current diagnosis. Patient condition: Stable Discharge Plan Plan Patient Disposition: HOME (Self Care) Discharge Disposition comment: Stable Prescriptions/Referrals Prescriptions/Med Rec: New metoclopramide HCl [Reglan] 10 mg tablet 10 mg PO Q6H PRN (Reason: nausea and vomiting) Qty: 20 0RF pantoprazole [Protonix] 40 mg tablet,delayed release (DR/EC) 40 mg PO QDAY Qty: 20 0RF tramadol-acetaminophen 37.5-325 mg tablet 1 tab PO TID PRN (Reason: pain) 5 Days Qty: 20 0RF No Action gabapentin 300 mg Capsule 300 mg PO BID tramadol 50 mg tablet 50 mg PO BID PRN (Reason: pain) Patient Comments: TAKE 50 MG TWICE A DAY BY ORAL ROUTE DIRECTED FOR 30 DAYS, FOR PAIN. simethicone 80 mg Tablet,Chewable 80 mg PO QID PRN (Reason: Gas) Qty: 30 0RF Culturelle 10 billion cell Capsule 1 cap PO BID Qty: 30 0RF oxycodone-acetaminophen [Percocet] 5-325 mg tablet 1 tab PO Q8H MDD 2 PRN (Reason: pain) Qty: 14 0RF clonazepam 1 mg tablet 1 mg PO BID Patient Comments: TAKE 1 TABLET BY MOUTH TWICE A DAY NEEDED FOR ANXIETY trazodone 50 mg Tablet 50 mg PO HS Qty: 30 0RF pantoprazole 40 mg Tablet,Delayed Release (Dr/Ec) 40 mg PO BID Qty: 90 0RF ondansetron 4 mg tablet,disintegrating 4 mg PO Q8H PRN (Reason: nausea and vomiting) Qty: 10 0RF Referrals: No Primary/Family,Physician [Primary Care Provider] - In 1 week Problem List Clinical Impression: Abdominal pain Patient/Caregiver Discharge Instructions Discharge Activity: activity as tolerated Education Materials: Abdominal Pain Additional Instructions: Thank you for the opportunity for serving you today. You are stable for discharged . You are advised to: Follow-up with your PCP in 1 to 2 days Return to ED for worsening of symptoms Increase oral fluids Take medication as prescribed Print Language: Citizen Of [place] Stand Alone Forms: Ceci Award Info., Patient Portal Info Letter LUISA/DONAL Supervising Physician LUISA/DONAL Supervising Physician: MD Olivia
[2025-06-27] MEDS: METOCLOPRAMIDE INJ 5 MG/ML VIAL 2 ML 10 MG IVP (16:25)
[2025-06-27] MEDS: FAMOTIDINE INJ 10 MG/ML VIAL 2 ML 20 MG IVP (16:25)
[2025-06-27] MEDS: RINGERS LACTATED 1000 ML 1,000 ML 999 ML IV ×2 (16:25→19:12)
[2025-06-27] MEDS: MORPHINE SULF INJ 10 MG/ML VIAL 4 MG IVP ×2 (16:25→19:11)
[2025-06-27 16:36] LABS: Basophils # (Auto) 0.0 Thou/mm3 (0.0-0.2); Basophils % (Auto) 0 % (0-2.5); Eosinophils # (Auto) 0.0 Thou/mm3 (0.0-0.5); Eosinophils % (Auto) 0 % (0-10); Hematocrit 38.9 % (36.0-46.0); Hemoglobin 12.9 g/dL (12.0-16.0); Immature Granulocytes Auto 0.04 Thou/mm3 (0.00-0.00); Lymphocytes # (Auto) 2.2 Thou/mm3 (1.0-4.8); Lymphocytes % (Auto) 19 % (10-50); Mean Corpuscular HGB Conc 33.2 g/dl (31.0-37.0); Mean Corpuscular Hemoglobin 27.8 pg (25.0-35.0); Mean Corpuscular Volume 84 fL (80-100); Monocytes # (Auto) 0.6 Thou/mm3 (0.0-0.8); Monocytes % (Auto) 5 % (0-12); Neutrophils # (Auto) 8.3 Thou/mm3 (1.8-7.7); Neutrophils % (Auto) 75 % (37-80); Nucleated Red Blood Cell # 0.00 Thou/mm3 (0.00-0.00); Nucleated Red Blood Cell % 0 /100 WBC (0); Platelet Count 459 Thou/mm3 (140-440); RDW Standard Deviation 46.1 fL (36.4-46.3); Red Blood Count 4.64 Miln/mm3 (4.00-5.20); White Blood Count 11.1 Thou/mm3 (3.6-11.0)
[2025-06-27 16:41] LABS: INR 1.0 (0.9-1.3); Prothrombin Time 10.9 Seconds (9.0-12.2)
[2025-06-27 16:43] LABS: Alanine Aminotransferase 14 U/L (10-49); Albumin, Serum 4.9 gm/dL (3.4-4.8); Albumin/Globulin Ratio 1.5 (1.2-2.2); Alkaline Phosphatase 144 U/L (46-116); Anion Gap 15 (7-16); Aspartate Amino Transferase 15 U/L (0-34); BUN/Creatinine Ratio 39 Ratio (12-20); Bilirubin,Total 0.2 mg/dL (0.3-1.2); Blood Urea Nitrogen 55 mg/dL (9-23); Calcium 10.4 mg/dL (8.3-10.6); Calcium (Corrected) 10.4 mg/dL (8.5-10.1); Chloride 105 mMol/L (98-107); Creatinine (Component) 1.4 mg/dL (0.6-1.3); Estimated Creatinine Clearance 35.1 mL/min (>60); Globulin 3.3 gm/dL (2.3-3.5); Glucose 138 mg/dL (74-106); Lipase 76 U/L (12-53); Osmolality,Calculated 285 (275-295); Potassium 4.8 mMol/L (3.4-5.1); Sodium 134 mMol/L (136-145); Total Protein 8.2 gm/dL (5.7-8.2); eGFR 42 See Note
[2025-06-27 16:47] LABS: Carbon Dioxide 14.5 mMol/L (20.0-31.0)
[2025-06-27 17:50] LABS: Collection Type, Urine Clean Catch
[2025-06-27 17:53] LABS: Bilirubin,Urine Negative (Negative); Blood,Urine Negative (Negative); Clarity,Urine Clear (Clear/Hazy); Color,Urine Lt-Yellow (Lt Yel-Yel); Glucose, Urine Negative (Negative); Hyaline Casts,Urine < 1 /hpf (0-1); Ketones,Urine Negative (Negative); Leukocyte Esterase,Urine Positive (Negative); Nitrite,Urine Negative (Negative); PH,Urine 5.5 (5.0-7.0); Protein,Urine Trace (Neg - Trace); RBC,Urine 2 /hpf (0-3); Specific Gravity,Urine 1.024 (1.001-1.035); Squamous Epithelial Cell,Urine 1 /hpf (0-5); Urobilinogen,Urine Negative mg/dL (0.0-1.0); WBC,Urine 11 /hpf (0-5)
[2025-06-27 17:57] LABS: Culture Indicated,Urine Yes
[2025-06-27] MEDS: ONDANSETRON INJ 2 MG/ML INJ 2 ML 4 MG IVP (19:12)
--- NOTE | 2025-06-27 19:15 | PC.NURSE ---
Auditor/Quality assumes care of patient at this time, pt resting in bed with no distress reported, pt tolerating IV fluids at this time, bed in low position and locked with side rails up x 2. Call light in reach of patient
== END 2025-06-27 20:33 | disposition home or self-care (01) ==
PROVIDERS: Nurse Practitioner Family; Emergency Provider Family Medicine
DX: R10.9 Unspecified abdominal pain (principal); R11.2 Nausea with vomiting, unspecified; R00.0 Tachycardia, unspecified; R07.9 Chest pain, unspecified; D72.829 Elevated white blood cell count, unspecified; Z93.3 Colostomy status
CPT/HCPCS: 36415; 71045; 74177; 80053; 81001; 83690; 85025; 85610; 87086; 93005; 96361; 96374; 96375; 96376; 99283; A4649; J1200; J2270; J2405; J2765; J3490; J7120; Q9967

== ENCOUNTER → 2025-07-28 | Outpatient (CLI) | payer MEDICARE, BC, SELFPAY ==
--- NOTE | 2025-07-28 08:16 | XR_ITS ---
Examination: CT abdomen and pelvis without contrast. Coronal 3-D reconstructions. Sagittal 2-D reconstructions. Date and time of exam:July 28, 2025 0836 hours, comparison June 27, 2025 INDICATIONS: Palpable mass in the abdomen with right lower abdominal pain beginning one week ago CTDI: vol (mGy): 6.09 DLP: (mGycm): 310 Technique: Axial images of the abdomen have been obtained, 3 mm slice thickness Intravenous contrast material has not been administered. Low dose protocols were performed. One or more of the following dose reduction techniques were used; automated exposure control, adjustment of the mA and/or KV according to patient size, use of iterative reconstruction technique. Findings: No focal liver or splenic lesions Absent gallbladder No pancreatic mass Renal arterial and subcentimeter renal calculi, no hydronephrosis or ureteral calculi Severe abdominal aortic calcification Right ileostomy No bowel obstruction No pericecal inflammatory change. Large soft tissue defect posterior pelvis adjacent to the coccygeal sacral segments again noted Inflammatory change around the anus but no definite perianal abscess, the inflammation is more prominent on the right side IMPRESSION: Bilateral nonobstructing renal calculi Severe abdominal aortic calcification, consider correlation with arterial Doppler sonographic images of the lower extremities No bowel obstruction Large soft tissue defect posterior pelvis again noted including inflammatory change on the right side of the anus
== END | disposition home or self-care (01) ==
PROVIDERS: PCP Nurse Practitioner Family; Referring Provider Nurse Practitioner Family; Visit Provider Nurse Practitioner Family
DX: N20.0 Calculus of kidney (principal); I70.0 Atherosclerosis of aorta; K62.89 Other specified diseases of anus and rectum
CPT/HCPCS: 74176

== ENCOUNTER → 2025-09-07 | Outpatient (CLI) | payer MEDICARE, BC, SELFPAY ==
[2025-09-07 10:31] LABS: Basophils # (Auto) 0.0 Thou/mm3 (0.0-0.2); Basophils % (Auto) 0 % (0-2.5); Eosinophils # (Auto) 0.1 Thou/mm3 (0.0-0.5); Eosinophils % (Auto) 1 % (0-10); Hematocrit 40.0 % (36.0-46.0); Hemoglobin 13.0 g/dL (12.0-16.0); Immature Granulocytes Auto 0.02 Thou/mm3 (0.00-0.00); Lymphocytes # (Auto) 2.4 Thou/mm3 (1.0-4.8); Lymphocytes % (Auto) 34 % (10-50); Mean Corpuscular HGB Conc 32.5 g/dl (31.0-37.0); Mean Corpuscular Hemoglobin 29.0 pg (25.0-35.0); Mean Corpuscular Volume 89 fL (80-100); Monocytes # (Auto) 0.5 Thou/mm3 (0.0-0.8); Monocytes % (Auto) 7 % (0-12); Neutrophils # (Auto) 3.9 Thou/mm3 (1.8-7.7); Neutrophils % (Auto) 57 % (37-80); Nucleated Red Blood Cell # 0.00 Thou/mm3 (0.00-0.00); Nucleated Red Blood Cell % 0 /100 WBC (0); Platelet Count 292 Thou/mm3 (140-440); RDW Standard Deviation 46.6 fL (36.4-46.3); Red Blood Count 4.49 Miln/mm3 (4.00-5.20); White Blood Count 6.8 Thou/mm3 (3.6-11.0)
[2025-09-07 10:52] LABS: Alanine Aminotransferase 15 U/L (10-49); Albumin, Serum 4.1 gm/dL (3.4-4.8); Alkaline Phosphatase 121 U/L (46-116); Anion Gap 11 (7-16); Aspartate Amino Transferase 18 U/L (0-34); BUN/Creatinine Ratio 24 Ratio (12-20); Bilirubin,Direct < 0.1 mg/dL (0.0-0.3); Bilirubin,Total 0.2 mg/dL (0.3-1.2); Blood Urea Nitrogen 19 mg/dL (9-23); Calcium 9.4 mg/dL (8.3-10.6); Carbon Dioxide 20.6 mMol/L (20.0-31.0); Cardiac Risk Estimate 4.4 RATIO (3.7-5.6); Chloride 110 mMol/L (98-107); Cholesterol 296 mg/dL (132-200); Creatinine (Component) 0.8 mg/dL (0.6-1.3); Free T4 (Free Thyroxine) 1.06 ng/dL (0.89-1.76); Glucose 133 mg/dL (74-106); HDL Cholesterol 68 mg/dL (40-60); LDL Cholesterol,Calculated 164 mg/dL (0-130); Osmolality,Calculated 287 (275-295); Potassium 4.6 mMol/L (3.4-5.1); Sodium 142 mMol/L (136-145); Thyroid Stimulating Hormone 0.81 uIU/mL (0.55-4.78); Total Protein 6.7 gm/dL (5.7-8.2); Triglycerides 320 mg/dL (30-150); eGFR > 60 See Note
[2025-09-07 11:50] LABS: Glucose Estimated Average 146 mg/dL (80-131); Hemoglobin A1C 6.7 % Hgb (4.8-6.0)
== END | disposition home or self-care (01) ==
LOC: COPL 09:03
PROVIDERS: PCP Nurse Practitioner Family; Referring Provider Internal Medicine Cardiovascular Disease; Visit Provider Internal Medicine Cardiovascular Disease
DX: I10 Essential (primary) hypertension (principal); E78.2 Mixed hyperlipidemia; E13.9 Other specified diabetes mellitus without complications; I25.118 Atherosclerotic heart disease of native coronary artery with other forms of angina pectoris
CPT/HCPCS: 36415; 80048; 80061; 80076; 83036; 84439; 84443; 85025

== ENCOUNTER → 2025-10-16 | Outpatient (CLI) | payer MEDICARE, BC, SELFPAY ==
[2025-10-16 10:28] LABS: Basophils # (Auto) 0.0 Thou/mm3 (0.0-0.2); Basophils % (Auto) 0 % (0-2.5); Eosinophils # (Auto) 0.1 Thou/mm3 (0.0-0.5); Eosinophils % (Auto) 1 % (0-10); Hematocrit 38.2 % (36.0-46.0); Hemoglobin 12.1 g/dL (12.0-16.0); Immature Granulocytes Auto 0.02 Thou/mm3 (0.00-0.00); Lymphocytes # (Auto) 1.9 Thou/mm3 (1.0-4.8); Lymphocytes % (Auto) 26 % (10-50); Mean Corpuscular HGB Conc 31.7 g/dl (31.0-37.0); Mean Corpuscular Hemoglobin 28.3 pg (25.0-35.0); Mean Corpuscular Volume 90 fL (80-100); Monocytes # (Auto) 0.5 Thou/mm3 (0.0-0.8); Monocytes % (Auto) 7 % (0-12); Neutrophils # (Auto) 4.7 Thou/mm3 (1.8-7.7); Neutrophils % (Auto) 65 % (37-80); Nucleated Red Blood Cell # 0.00 Thou/mm3 (0.00-0.00); Nucleated Red Blood Cell % 0 /100 WBC (0); Platelet Count 378 Thou/mm3 (140-440); RDW Standard Deviation 41.1 fL (36.4-46.3); Red Blood Count 4.27 Miln/mm3 (4.00-5.20); White Blood Count 7.3 Thou/mm3 (3.6-11.0)
[2025-10-16 10:49] LABS: Glucose Estimated Average 148 mg/dL (80-131); Hemoglobin A1C 6.8 % Hgb (4.8-6.0)
[2025-10-16 10:57] LABS: Alanine Aminotransferase 9 U/L (10-49); Albumin, Serum 4.8 gm/dL (3.4-4.8); Albumin/Globulin Ratio 1.9 (1.2-2.2); Alkaline Phosphatase 126 U/L (46-116); Anion Gap 10 (7-16); Aspartate Amino Transferase 15 U/L (0-34); BUN/Creatinine Ratio 23 Ratio (12-20); Bilirubin,Total 0.4 mg/dL (0.3-1.2); Blood Urea Nitrogen 16 mg/dL (9-23); Calcium 9.7 mg/dL (8.3-10.6); Calcium (Corrected) 9.7 mg/dL (8.5-10.1); Carbon Dioxide 26.5 mMol/L (20.0-31.0); Cardiac Risk Estimate 4.3 RATIO (3.7-5.6); Chloride 106 mMol/L (98-107); Cholesterol 207 mg/dL (132-200); Creatinine (Component) 0.7 mg/dL (0.6-1.3); Free T4 (Free Thyroxine) 1.57 ng/dL (0.89-1.76); Globulin 2.5 gm/dL (2.3-3.5); Glucose 185 mg/dL (74-106); HDL Cholesterol 48 mg/dL (40-60); LDL Cholesterol,Calculated 111 mg/dL (0-130); Osmolality,Calculated 289 (275-295); Potassium 3.9 mMol/L (3.4-5.1); Sodium 142 mMol/L (136-145); Thyroid Stimulating Hormone 0.66 uIU/mL (0.55-4.78); Total Protein 7.3 gm/dL (5.7-8.2); Triglycerides 241 mg/dL (30-150); eGFR > 60 See Note
[2025-10-16 12:03] LABS: Folate 16.27 ng/mL (>5.38); Hepatitis C Antibody Non Reactive (Non React); Vitamin B12 278 pg/mL (211-911); Vitamin D 25 Hydroxy Total 23.3 ng/mL (7.3-40.2)
[2025-10-26 07:03] LABS: Direct LDL* 117 mg/dL (<100)
== END | disposition home or self-care (01) ==
LOC: COPL 08:44
PROVIDERS: PCP Nurse Practitioner Family; Referring Provider Nurse Practitioner Family; Visit Provider Nurse Practitioner Family
DX: Z11.59 Encounter for screening for other viral diseases (principal); E11.65 Type 2 diabetes mellitus with hyperglycemia; Z13.29 Encounter for screening for other suspected endocrine disorder; E78.2 Mixed hyperlipidemia; R53.81 Other malaise; R53.83 Other fatigue
CPT/HCPCS: 36415; 80053; 80061; 82306; 82607; 82746; 83036; 83721; 84439; 84443; 85025; 86803